=== PATIENT | female | born 1950 | race Caucasian/White ===

== ENCOUNTER 2017-07-04 10:52 | Inpatient (IN) | payer MEDICARE, OTHER ==
[2017-07-04] MEDS ORDERED: SODIUM CHLORIDE 0.9% 500 ML IV ONE (11:21)
[2017-07-04] MEDS ORDERED: SODIUM CHLORIDE 0.9% 1,000 ML IV ONE (11:21)
--- NOTE | 2017-07-04 11:39 | ED ---
Fall HPI <Krystian Patricio J - Last Filed: 07/04/17 14:15> - General Source: patient, EMS Mode of arrival: EMS Limitations: physical limitation <Pablo Alatorre - Last Filed: 07/04/17 14:59> - General Chief Complaint: Fall Stated Complaint: Fall Time Seen by Provider: 07/04/17 11:03 - History of Present Illness Initial Comments: This is a 66-year-old female presents emergency Department complaints of fall, weakness. Patient states that over school issues had extreme nausea vomiting diarrhea. She states that she took 3 Phenergan tablets yesterday states that she woke up last night to go to the bathroom states she fell. She states her tried to put her back in the bed in which she laid there were had with the bathroom again states that she got up and fell again she states she hit her head on a glass table she does not believe that she loss conscious. Patient window right shoulder right arm pain, right hip pain. She states she has no head or neck pain though she does admit to taking low-dose eliquis. Patient states that she has a history of UTIs in C. diff recently. Patient states she has no chest pain or shortness of breath. She states she does feel very rundown just normal usual self. (Pablo Alatorre) - Related Data Home Medications Medication Instructions Recorded Confirmed Spironolactone [Aldactone] 50 mg PO DAILY 09/24/14 07/04/17 Furosemide [Lasix] 20 mg PO DAILY 04/11/15 07/04/17 Apixaban [Eliquis] 2.5 mg PO HS 07/04/17 07/04/17 Levothyroxine Sodium [Synthroid] 50 mcg PO DAILY 07/04/17 07/04/17 Mirtazapine 7.5 mg PO HS 07/04/17 07/04/17 Allergies Allergy/AdvReac Type Severity Reaction Status Date / Time VANESSA Inhibitors Allergy Unknown Verified 07/04/17 11:27 baclofen Allergy Confusion Verified 07/04/17 11:27 cefepime HCl [From Maxipime] Allergy Rash/Hives Verified 07/04/17 11:27 cephalexin Allergy Rash/Hives Verified 07/04/17 11:27 ciprofloxacin Allergy Rash/Hives Verified 07/04/17 11:27 clindamycin Allergy Nausea & Verified 07/04/17 11:27 Vomiting erythromycin base Allergy Rash/Hives Verified 07/04/17 11:27 heparin Allergy Unknown Verified 07/04/17 11:27 lisinopril [From Zestril] Allergy Unknown Verified 07/04/17 11:27 lorazepam [From Ativan] Allergy Confusion Verified 07/04/17 11:27 metronidazole [From Flagyl] Allergy Nausea & Verified 07/04/17 11:27 Vomiting penicillin G Allergy Rash/Hives Verified 07/04/17 11:27 shellfish derived [Shellfish] Allergy Swelling Verified 07/04/17 11:27 Sulfa (Sulfonamide Allergy Swelling Verified 07/04/17 11:27 Antibiotics) steroids Allergy Unknown Uncoded 09/24/14 13:10 Review of Systems ROS Other: All systems not noted in ROS Statement are negative. <Krystian Patricio - Last Filed: 07/04/17 14:15> ROS Other: All systems not noted in ROS Statement are negative. <Pablo Alatorre - Last Filed: 07/04/17 14:59> ROS Statement: Those systems with pertinent positive or pertinent negative responses have been documented in the HPI. Past Medical History Past Medical History: Blood Disorder, Cancer, Deep Vein Thrombosis (DVT), Liver Disease, Respiratory Disorder Additional Past Medical History / Comment(s): 09-10-14 admitted to [facility] with c/o blood in urine and rectal bleeding, DX GI BLEED AND UTI. other hx: Breast Ca; Skin Ca squamous and melanoma; uterine ca, lung cancer LOWER LEFT LOBE 70%, c- diff- 08-13-14, on xarelto for dvt and portal vein thrombosis. 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 Additional Past Anesthesia/Blood Transfusion Reaction / Comment(s): PAST BLOOD TRANSFUSIONS- NO COMPLICATIONS Past Psychological History: Depression Smoking Status: Former smoker Past Alcohol Use History: None Reported, Occasional Past Drug Use History: None Reported - Past Family History Father Additional Family Medical History / Comment(s): FROM COMPLICATIONS OF SCHRAPNEL IN BODY Mother Additional Family Medical History / Comment(s): STOMACH PROBLEMS, EMPHYSEMA <Pablo Alatorre - Last Filed: 07/04/17 14:59> General Exam Limitations: no limitations General appearance: alert, in no apparent distress Head exam: Present: atraumatic, normocephalic, normal inspection Eye exam: Present: normal appearance, PERRL, EOMI. Absent: scleral icterus, conjunctival injection, periorbital swelling ENT exam: Present: normal exam, normal oropharynx, mucous membranes moist Neck exam: Present: normal inspection, full ROM. Absent: tenderness, meningismus, lymphadenopathy Respiratory exam: Present: normal lung sounds bilaterally. Absent: respiratory distress, wheezes, rales, rhonchi, stridor, chest wall tenderness Cardiovascular Exam: Present: regular rate, normal rhythm, normal heart sounds. Absent: systolic murmur, diastolic murmur, rubs, gallop, clicks GI/Abdominal exam: Present: soft, normal bowel sounds. Absent: distended, tenderness, guarding, rebound, rigid Extremities exam: Present: other (Tenderness with palpation of the right shoulder, right forearm there is moderate swelling neurovascular intact limited range of motion left upper extremity within normal limits, right hip tenderness with palpation limited range of motion, left hip nontender neurovascular intact) Back exam: Present: full ROM. Absent: tenderness, paraspinal tenderness, vertebral tenderness Neurological exam: Present: alert, oriented X3, CN II-XII intact, reflexes normal. Absent: motor sensory deficit Skin exam: Present: warm, dry, intact, normal color. Absent: rash <Pablo Alatorre - Last Filed: 07/04/17 14:59> Course <Krystian Patricio - Last Filed: 07/04/17 14:15> <Pablo Alatorre - Last Filed: 07/04/17 14:59> Vital Signs 07/04/17 07/04/17 10:53 13:22 Temperature 98.9 F Pulse Rate 74 89 Respiratory 18 16 Rate Blood Pressure 133/63 130/62 O2 Sat by Pulse 97 96 Oximetry - Reevaluation(s) Reevaluation #1: 07/04/17 12:19 Patient did not want pain meds on initial exam on upon arrival. (Pablo Alatorre) Procedures <Krystian Patricio - Last Filed: 07/04/17 14:15> - Orthopedic Splinting/Casting Injury #1 Side: right Upper Extremity Injury Location: short arm, wrist Upper Extremity Immobilizer: volar splint, synthetic pre-padded splint <Pablo Alatorre - Last Filed: 07/04/17 14:59> - Orthopedic Splinting/Casting Injury #1 Additional Comments: Neurovascular intact before and after procedure (Pablo Alatorre) Medical Decision Making - Lab Data Result diagrams: 07/04/17 13:13 07/04/17 13:13 <Krystian Patricio - Last Filed: 07/04/17 14:15> - Lab Data Result diagrams: 07/04/17 13:13 07/04/17 13:13 <Pablo Alatorre - Last Filed: 07/04/17 14:59> - Medical Decision Making The patient was seen and examined. All diagnostics were reviewed. The case will be discussed with orthopedic surgery in the near future and patient will be admitted for further treatment. Case was also discussed with the PA and I agree with the findings as documented. (Krystian Patricio) 66-year-old female presented for fall. Patient's found to have a right IT hip fracture, right wrist fracture. Case discussed with Carolyn at [facility] patient will be admitted for surgical intervention patient will have consultation with medicine for medical management, surgical clearance. Patient is given Levaquin as she is tolerating the past per patient for her urinary tract infection. Patient is being hydrated for her dehydration at this time. Patient's pain is under control. (Pablo Alatorre) - Lab Data Lab Results 07/04/17 07/04/17 07/04/17 Range/Units 11:23 13:13 13:13 WBC 10.3 (3.8-10.6) k/uL RBC 4.11 (3.80-5.40) m/uL Hgb 11.3 L (11.4-16.0) gm/dL Hct 36.0 (34.0-46.0) % MCV 87.4 (80.0-100.0) fL MCH 27.6 (25.0-35.0) pg MCHC 31.5 (31.0-37.0) g/dL RDW 15.7 H (11.5-15.5) % Plt Count 113 L (150-450) k/uL Neutrophils % 90 % Lymphocytes % 5 % Monocytes % 4 % Eosinophils % 1 % Basophils % 0 % Neutrophils # 9.3 H (1.3-7.7) k/uL Lymphocytes # 0.5 L (1.0-4.8) k/uL Monocytes # 0.4 (0-1.0) k/uL Eosinophils # 0.1 (0-0.7) k/uL Basophils # 0.0 (0-0.2) k/uL Hypochromasia Slight PT (9.0-12.0) sec INR (<1.2) APTT (22.0-30.0) sec Sodium 142 (137-145) mmol/L Potassium 4.2 (3.5-5.1) mmol/L Chloride 108 H (98-107) mmol/L Carbon Dioxide 22 (22-30) mmol/L Anion Gap 12 mmol/L BUN 25 H (7-17) mg/dL Creatinine 1.30 H (0.52-1.04) mg/dL Est GFR (CKD-EPI)AfAm 49 (>60 ml/min/1.73 sqM) Est GFR (CKD-EPI)NonAf 42 (>60 ml/min/1.73 sqM) Glucose 125 H (74-99) mg/dL Plasma Lactic Acid Alex (0.7-2.0) mmol/L Calcium 8.9 (8.4-10.2) mg/dL Magnesium 1.5 L (1.6-2.3) mg/dL Total Bilirubin 1.1 (0.2-1.3) mg/dL AST 62 H (14-36) U/L ALT 57 H (9-52) U/L Alkaline Phosphatase 173 H (38-126) U/L Total Creatine Kinase (30-135) U/L CK-MB (CK-2) (0.0-2.4) ng/mL CK-MB (CK-2) Rel Index Troponin I (0.000-0.034) ng/mL Total Protein 6.3 (6.3-8.2) g/dL Albumin 3.3 L (3.5-5.0) g/dL Amylase 50 (30-110) U/L Lipase 40 (23-300) U/L Urine Color Yellow Urine Appearance Cloudy H (Clear) Urine pH 5.0 (5.0-8.0) Ur Specific [place] 1.014 (1.001-1.035) Urine Protein Trace H (Negative) Urine Glucose (UA) Negative (Negative) Urine Ketones Negative (Negative) Urine Blood Small H (Negative) Urine Nitrite Positive H (Negative) Urine Bilirubin Negative (Negative) Urine Urobilinogen <2.0 (<2.0) mg/dL Ur Leukocyte Esterase Large H (Negative) Urine RBC 14 H (0-5) /hpf Urine WBC >182 H (0-5) /hpf Urine WBC Clumps Many H (None) /hpf Urine Bacteria Many H (None) /hpf Hyaline Casts 8 H (0-2) /lpf Urine Mucus Occasional H (None) /hpf 07/04/17 07/04/17 07/04/17 Range/Units 13:13 13:13 13:13 WBC (3.8-10.6) k/uL RBC (3.80-5.40) m/uL Hgb (11.4-16.0) gm/dL Hct (34.0-46.0) % MCV (80.0-100.0) fL MCH (25.0-35.0) pg MCHC (31.0-37.0) g/dL RDW (11.5-15.5) % Plt Count (150-450) k/uL Neutrophils % % Lymphocytes % % Monocytes % % Eosinophils % % Basophils % % Neutrophils # (1.3-7.7) k/uL Lymphocytes # (1.0-4.8) k/uL Monocytes # (0-1.0) k/uL Eosinophils # (0-0.7) k/uL Basophils # (0-0.2) k/uL Hypochromasia PT 11.4 (9.0-12.0) sec INR 1.2 H (<1.2) APTT 24.1 (22.0-30.0) sec Sodium (137-145) mmol/L Potassium (3.5-5.1) mmol/L Chloride (98-107) mmol/L Carbon Dioxide (22-30) mmol/L Anion Gap mmol/L BUN (7-17) mg/dL Creatinine (0.52-1.04) mg/dL Est GFR (CKD-EPI)AfAm (>60 ml/min/1.73 sqM) Est GFR (CKD-EPI)NonAf (>60 ml/min/1.73 sqM) Glucose (74-99) mg/dL Plasma Lactic Acid Alex 1.3 (0.7-2.0) mmol/L Calcium (8.4-10.2) mg/dL Magnesium (1.6-2.3) mg/dL Total Bilirubin (0.2-1.3) mg/dL AST (14-36) U/L ALT (9-52) U/L Alkaline Phosphatase (38-126) U/L Total Creatine Kinase 100 (30-135) U/L CK-MB (CK-2) 1.3 (0.0-2.4) ng/mL CK-MB (CK-2) Rel Index 1.3 Troponin I 0.023 (0.000-0.034) ng/mL Total Protein (6.3-8.2) g/dL Albumin (3.5-5.0) g/dL Amylase (30-110) U/L Lipase (23-300) U/L Urine Color Urine Appearance (Clear) Urine pH (5.0-8.0) Ur Specific [place] (1.001-1.035) Urine Protein (Negative) Urine Glucose (UA) (Negative) Urine Ketones (Negative) Urine Blood (Negative) Urine Nitrite (Negative) Urine Bilirubin (Negative) Urine Urobilinogen (<2.0) mg/dL Ur Leukocyte Esterase (Negative) Urine RBC (0-5) /hpf Urine WBC (0-5) /hpf Urine WBC Clumps (None) /hpf Urine Bacteria (None) /hpf Hyaline Casts (0-2) /lpf Urine Mucus (None) /hpf - EKG Data EKG Comments: EKG performed at 12:24 normal sinus rhythm with a rate of 74 MS 136 QRS 88 QT/ QTC 422/468 (Pablo Alatorre) Disposition <Krystian Patricio - Last Filed: 04/26/18 14:15> <Pablo Alatorre - Last Filed: 07/04/17 14:59> Clinical Impression: Fall, Urinary tract infection, Dehydration, Intertrochanteric fracture of right hip, Right wrist fracture Disposition: ADMITTED IP TO THIS HOSP Condition: Fair
[2017-07-04 11:45] LABS: Appearance,Urine Cloudy (Clear); Bacteria,Urine Many /hpf; Bilirubin,Urine Negative (Negative); Blood,Urine Small (Negative); Color,Urine Yellow; Glucose,Urine (UA) Negative (Negative); Hyaline Casts,Urine 8 /lpf (0-2); Ketones,Urine Negative (Negative); Leukocyte Esterase,Urine Large (Negative); Mucus,Urine Occasional /hpf; Nitrite,Urine Positive (Negative); Protein,Urine Trace (Negative); RBC,Urine 14 /hpf (0-5); Specific Gravity,Urine 1.014 (1.001-1.035); Urobilinogen,Urine <2.0 mg/dL (<2.0); WBC,Urine >182 /hpf (0-5)
[2017-07-04] MEDS ORDERED: MORPHINE SULFATE 4 MG/0.8 ML SYRINGE (INJ) IVP STA (12:02)
[2017-07-04] MEDS ORDERED: ONDANSETRON 4 MG/2 ML VIAL IVP STA (12:02)
--- NOTE | 2017-07-04 12:06 | CT ---
EXAMINATION TYPE: CT brain lawrence cardoza DATE OF EXAM: 07/04/2017 COMPARISON: NONE HISTORY: Fall, smacked head on coffee table CT DLP: 1655 mGycm, Automated exposure control for dose reduction was used. CONTRAST: Patient injected with 0 mL of Isovue 300. CT of the brain is performed utilizing 3 mm thick sections through the posterior fossa and 3 mm thick sections through the remaining calvarium. Study is performed within 24 hours of arrival to the hospital. No abnormal hyperdensity is present to suggest an acute intracranial hemorrhage. No mass lesion is evident. No acute infarcts are evident. There is mild periventricular white matter hypodensity, likely on the basis of chronic white matter ischemic changes. Ventricles and sulci are somewhat prominent for the patient age. Paranasal sinuses and mastoid air cells within the [id number] are clear. No acute fractures are evident. IMPRESSIONS: 1. Atrophy with mild periventricular white matter ischemic changes. 2. No acute intracranial process CT cervical spine. COMPARISON: None CT of the cervical spine is performed in the axial plane at 2 mm thick sections. Reconstructed image s in the coronal, and sagittal plane are reviewed on the computer. No acute fractures are evident. Vertebral body alignment is normal. There is loss of disc height throughout the cervical spine. Endplate spurring is present through the cervical spine. This is somewhat larger at C4-5 C5-6 without AP spinal canal stenosis. Uncovertebral joint hypertrophy is contributing to foraminal narrowing C6- 7 bilaterally C5-6 bilaterally due to lesser degree C4-5 due to moderate degree C3-4 to moderate degr ee. Vertebral body heights are preserved. IMPRESSIONS: 1. Endplate spurring and degenerative disc changes throughout the cervical spine. 2. Foraminal stenosis within the mid to lower cervical spine appears moderate to severe discussed abo ve. 3. No acute changes
--- NOTE | 2017-07-04 12:30 | XR ---
EXAMINATION TYPE: XR shoulder complete RT, XR forearm RT DATE OF EXAM: 07/04/2017 CLINICAL HISTORY: Right shoulder pain after a fall TECHNIQUE: Three views of the right shoulder are obtained. COMPARISON: None. FINDINGS: There is no acute fracture/dislocation evident in the right shoulder. The acromioclavicul ar and glenohumeral joint spaces appear within normal limits. The visualized ribs are intact and unr emarkable. Right axillary surgical clips are noted. There is a apex volar angulated, minimally dorsally displaced (1 to 2 mm), noncomminuted impaction fr acture of the distal radius and transversely oriented minimally displaced (1 mm distraction) fracture of the ulnar styloid process. There is overlying soft tissue swelling of the distal forearm. IMPRESSION: 1. Noncomminuted, minimally dorsally displaced (1 to 2 mm), volar angulated distal radial impaction f racture and minimally displaced transversely oriented ulnar styloid process fracture. 2. There is no acute fracture or dislocation in the right shoulder.
--- NOTE | 2017-07-04 12:31 | XR ---
EXAMINATION TYPE: XR chest 1V DATE OF EXAM: 07/04/2017 COMPARISON: NONE INDICATION: Pain following fall TECHNIQUE: Single frontal view of the chest is obtained. Patient is rotated to the left. FINDINGS: The heart size is normal. The pulmonary vasculature is normal. Surgical clips are in the left hilar region. Some plate atelectasis may be along the minor fissure on the right. This could be some minimal fluid. There is blunting left costophrenic angle. Small left p leural effusion may be present. No pneumothorax is evident. No displaced rib fractures are identified. IMPRESSION: 1. Minimal left pleural effusion. 2. Atelectasis right midlung
--- NOTE | 2017-07-04 12:32 | XR ---
EXAMINATION TYPE: XR Hip RT and AP Pelvis DATE OF EXAM: 07/04/2017 COMPARISON: NONE HISTORY: Pain after a fall TECHNIQUE: A single AP view of the pelvis is obtained. Two views of the right hip are obtained. FINDINGS: There is an intertrochanteric nondisplaced, noncomminuted impaction fracture of the right proximal femur extending into the lesser trochanter. Remainder the pelvis structures appear intact wi th healed chronic fracture deformity of the left pubic symphysis and superior pubic ramus. Postsurgic al changes the pelvis are noted with mild femoral acetabular arthropathy and moderate degenerative ch anges of the lumbosacral spine are seen. IMPRESSION: Nondisplaced, noncomminuted impacted intertrochanteric fracture of the right proximal femur extending into the lesser trochanter.
[2017-07-04 13:31] LABS: Basophils % (A) 0 %; Eosinophils # (A) 0.1 k/uL (0-0.7); Eosinophils % (A) 1 %; HGB 11.3 gm/dL (11.4-16.0); Hypochromasia Slight; Lymphocytes # (A) 0.5 k/uL (1.0-4.8); Lymphocytes % (A) 5 %; MCH 27.6 pg (25.0-35.0); MCHC 31.5 g/dL (31.0-37.0); MCV 87.4 fL (80.0-100.0); Mean Platelet Volume 8.2; Monocytes # (A) 0.4 k/uL (0-1.0); Monocytes % (A) 4 %; Neutrophils # (A) 9.3 k/uL (1.3-7.7); Neutrophils % (A) 90 %; Platelet Count 113 k/uL (150-450); RBC 4.11 m/uL (3.80-5.40); RDW 15.7 % (11.5-15.5); WBC 10.3 k/uL (3.8-10.6)
[2017-07-04 13:39] LABS: INR 1.2 (<1.2); Partial Thromboplastin Time 24.1 sec (22.0-30.0); Prothrombin Time 11.4 sec (9.0-12.0)
[2017-07-04 13:41] LABS: Albumin 3.3 g/dL (3.5-5.0); Calcium 8.9 mg/dL (8.4-10.2); Magnesium 1.5 mg/dL (1.6-2.3); Potassium 4.2 mmol/L (3.5-5.1); Total Bilirubin 1.1 mg/dL (0.2-1.3); Total Protein 6.3 g/dL (6.3-8.2)
[2017-07-04 14:03] LABS: Creatine Kinase MB 1.3 ng/mL (0.0-2.4); Troponin I 0.023 ng/mL (0.000-0.034)
[2017-07-04] MEDS ORDERED: NALOXONE 0.4 MG/ML 1 ML VIAL IV PRN (14:19)
[2017-07-04] MEDS ORDERED: ONDANSETRON 4 MG/2 ML VIAL IVP PRN (14:19)
[2017-07-04] MEDS ORDERED: HYDROcodone/APAP 5-325MG 1 EACH TAB PO PRN (14:19)
[2017-07-04] MEDS ORDERED: LEVOFLOXACIN 750MG-D5W PMX 750 MG in DEXTROSE/WATER 1 150ML.BAG IVPB STA ×2 (14:21→20:49)
[2017-07-04] MEDS ORDERED: SODIUM CHLORIDE 0.9% 1,000 ML IV SCH (14:30)
--- NOTE | 2017-07-04 15:02 | XR ---
EXAMINATION TYPE: XR Femur RT 1 View DATE OF EXAM: 07/04/2017 CLINICAL HISTORY: Fall with right femoral pain. TECHNIQUE: Two views of the right femur are obtained. COMPARISON: None FINDINGS: There is redemonstration of a known intertrochanteric fracture with involvement of the less er trochanter and demonstration of impaction. The remainder the proximal right femur is intact. Surgi rogerio clips are seen within the pelvis as well as partial visualization of an old fracture deformity of the left pubic ramus. The distal femur appears unremarkable other than degenerative changes of the k nee demonstrated as medial compartment joint space narrowing. IMPRESSION: Redemonstration of an intertrochanteric impacted right proximal femoral fracture. No distal femoral f racture is identified. Degenerative changes of the medial compartment of the right knee are noted.
--- NOTE | 2017-07-04 16:48 | P.HPOR ---
History of Present Illness H&P Date: 07/04/17 Chief Complaint: Right hip intertrochantric fracture and right distal radius fracture The patient is a 66 year old female with an extensive history of malignancy and blood clotting disorder that presented to the emergency department today with right hip and arm pain. She states she fell at home last night and an ambulance brought her to the hospital this morning due to inability to ambulate. She lives with her in their own home. The patient does not use an ambulatory aid. She states she hasn't been feeling well and was very dizzy last night. She did hit her head but did not lose consciousness. A head and cervical CT was performed on arrival to the ER and was negative for bleed or fracture. Hip x-rays revealed a non-displaced intertrochantric fracture and forearm x-rays revealed a minimally displaced distal radius fracture with ulnar styloid fracture. The patient was admitted to our service for surgical intervention. She is on low-dose Eliquis for a history of a portal vein thrombosis. Dr. Miles Collado has been consulted for surgical clearance. She is being treated for a UTI with Levaquin IV. She has a history of C. diff. Review of Systems Constitutional: Denies chills, Denies fever, Denies lethargy Cardiovascular: Reports lightheadedness, Denies chest pain, Denies shortness of breath Respiratory: Denies cough Gastrointestinal: Denies diarrhea, Denies nausea, Denies vomiting Musculoskeletal: right: hip pain, hip stiffness, hip swelling, wrist pain, wrist swelling Neurological: Reports weakness Hematologic/Lymphatic: Reports as per HPI Past Medical History Past Medical History: Blood Disorder, Cancer, Deep Vein Thrombosis (DVT), GI Bleed, Liver Disease, Respiratory Disorder Additional Past Medical History / Comment(s): 09[facility]/o blood in urine and rectal bleeding, DX GI BLEED AND UTI. other hx: Breast Ca x2 ; Skin Ca squamous and melanoma; uterine ca, lung cancer LOWER LEFT LOBE 70%, c- diff- 08-13-14 snd feb 2017, on xarelto for dvt and portal vein thrombosis. 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 History of Any Multi-Drug Resistant Organisms: C-DIFF Date of last positivie culture/infection: 08/13/14 and MDRO Source:: stool Past Surgical History: Adenoidectomy, Appendectomy, Breast Surgery, Cholecystectomy, Hysterectomy, Tonsillectomy Additional Past Surgical History / Comment(s): Mastectomy bilateral; Left lower lobectomy 70%; exploratory laparotomy, LASER SX AT [facility] FOR MELANOMA- CURRENTLY HAS 100 SPOTS THAT THEY ARE WATCHING REMMOVED 4 SO FAR.lasik eye sx, past "abcess on back(ecoli) pt stated they had to open a channel,removed 2 ribs and some muscle and it was open to drain to 18 months". Additional Past Anesthesia/Blood Transfusion Reaction / Comment(s): PAST BLOOD TRANSFUSIONS- NO COMPLICATIONS Smoking Status: Former smoker - Past Family History Father Additional Family Medical History / Comment(s): FROM COMPLICATIONS OF SCHRAPNEL IN BODY Mother Additional Family Medical History / Comment(s): STOMACH PROBLEMS, EMPHYSEMA Medications and Allergies Home Medications Medication Instructions Recorded Confirmed Type Spironolactone [Aldactone] 50 mg PO DAILY 09/24/14 07/04/17 History Furosemide [Lasix] 20 mg PO DAILY 04/11/15 07/04/17 History Apixaban [Eliquis] 2.5 mg PO HS 07/04/17 07/04/17 History Levothyroxine Sodium [Synthroid] 50 mcg PO DAILY 07/04/17 07/04/17 History Mirtazapine 7.5 mg PO HS 07/04/17 07/04/17 History Allergies Allergy/AdvReac Type Severity Reaction Status Date / Time VANESSA Inhibitors Allergy Unknown Verified 07/04/17 11:27 baclofen Allergy Confusion Verified 07/04/17 11:27 cefepime HCl [From Maxipime] Allergy Rash/Hives Verified 07/04/17 11:27 cephalexin Allergy Rash/Hives Verified 07/04/17 11:27 ciprofloxacin Allergy Rash/Hives Verified 07/04/17 11:27 clindamycin Allergy Nausea & Verified 07/04/17 11:27 Vomiting erythromycin base Allergy Rash/Hives Verified 07/04/17 11:27 heparin Allergy Unknown Verified 07/04/17 11:27 lisinopril [From Zestril] Allergy Unknown Verified 07/04/17 11:27 lorazepam [From Ativan] Allergy Confusion Verified 07/04/17 11:27 metronidazole [From Flagyl] Allergy Nausea & Verified 07/04/17 11:27 Vomiting penicillin G Allergy Rash/Hives Verified 07/04/17 11:27 shellfish derived [Shellfish] Allergy Swelling Verified 07/04/17 11:27 Sulfa (Sulfonamide Allergy Swelling Verified 07/04/17 11:27 Antibiotics) steroids Allergy Unknown Uncoded 09/24/14 13:10 Physical Examination The patient is a 66 y/o female who is in no acute distress. She is alert and oriented x3. Her head is normocephalic/atraumatic. Exam of the cervical spine reveals no pain to palpation, no step-offs noted. Exam of the right upper extremity reveals a volar splint. Here is swelling to the fingers. She is able to wiggle her fingers. No neurological deficits or numbness noted. No elbow or shoulder pain to palpation or upon passive range of motion. Exam of the right lower extremity reveals minimal shortening of the leg. There is pain to the lateral hip on palpation. Range of motion of the hip was not performed. Right knee, ankle, and foot are non-tender. Exam of the leg upper and lower extremities are unremarkable. Bilateral calves are soft and non-tender. Neurological and circulatory status is intact. Results - Labs Labs: Abnormal Lab Results - Last 24 Hours (Table) 07/04/17 07/04/17 07/04/17 Range/Units 11:23 13:13 13:13 Hgb 11.3 L (11.4-16.0) gm/dL RDW 15.7 H (11.5-15.5) % Plt Count 113 L (150-450) k/uL Neutrophils # 9.3 H (1.3-7.7) k/uL Lymphocytes # 0.5 L (1.0-4.8) k/uL INR (<1.2) Chloride 108 H (98-107) mmol/L BUN 25 H (7-17) mg/dL Creatinine 1.30 H (0.52-1.04) mg/dL Glucose 125 H (74-99) mg/dL Magnesium 1.5 L (1.6-2.3) mg/dL AST 62 H (14-36) U/L ALT 57 H (9-52) U/L Alkaline Phosphatase 173 H (38-126) U/L Albumin 3.3 L (3.5-5.0) g/dL Urine Appearance Cloudy H (Clear) Urine Protein Trace H (Negative) Urine Blood Small H (Negative) Urine Nitrite Positive H (Negative) Ur Leukocyte Esterase Large H (Negative) Urine RBC 14 H (0-5) /hpf Urine WBC >182 H (0-5) /hpf Urine WBC Clumps Many H (None) /hpf Urine Bacteria Many H (None) /hpf Hyaline Casts 8 H (0-2) /lpf Urine Mucus Occasional H (None) /hpf 07/04/17 Range/Units 13:13 Hgb (11.4-16.0) gm/dL RDW (11.5-15.5) % Plt Count (150-450) k/uL Neutrophils # (1.3-7.7) k/uL Lymphocytes # (1.0-4.8) k/uL INR 1.2 H (<1.2) Chloride (98-107) mmol/L BUN (7-17) mg/dL Creatinine (0.52-1.04) mg/dL Glucose (74-99) mg/dL Magnesium (1.6-2.3) mg/dL AST (14-36) U/L ALT (9-52) U/L Alkaline Phosphatase (38-126) U/L Albumin (3.5-5.0) g/dL Urine Appearance (Clear) Urine Protein (Negative) Urine Blood (Negative) Urine Nitrite (Negative) Ur Leukocyte Esterase (Negative) Urine RBC (0-5) /hpf Urine WBC (0-5) /hpf Urine WBC Clumps (None) /hpf Urine Bacteria (None) /hpf Hyaline Casts (0-2) /lpf Urine Mucus (None) /hpf H & H 07/04/17 Range/Units 13:13 Hgb 11.3 L (11.4-16.0) gm/dL Hct 36.0 (34.0-46.0) % Coagulation 07/04/17 Range/Units 13:13 INR 1.2 H (<1.2) Result Diagrams: 07/04/17 13:13 07/04/17 13:13 - Diagnostic results Wrist/Hand x-ray: image reviewed (Minimally displaced distal radius fracture with ulnar styloid fracture of the right wrist. Fracture is is in satisfactory alignment. ) Hip x-ray: image reviewed (non-displaced intertrochantric fracture of the right hip. There is an old superior pubic rami fracture on the left. ) Assessment and Plan (1) Fall Current Visit: Yes Status: Acute Code(s): W19.XXXA - UNSPECIFIED FALL, INITIAL ENCOUNTER SNOMED Code(s): 8643667 (2) Intertrochanteric fracture of right hip Current Visit: Yes Status: Acute Code(s): S72.141A - DISPLACED INTERTROCHANTERIC FRACTURE OF RIGHT FEMUR, INIT SNOMED Code(s): 835450836 (3) Distal radius fracture Current Visit: Yes Status: Acute Code(s): S52.509A - UNSP FRACTURE OF THE LOWER END OF UNSP RADIUS, INIT SNOMED Code(s): 525308012 (4) Urinary tract infection Current Visit: Yes Status: Acute Code(s): N39.0 - URINARY TRACT INFECTION, SITE NOT SPECIFIED SNOMED Code(s): 69316796 Plan: The clinical and x-ray findings were discussed with the patient. The case was discussed with Dr. Arvizu. Continue bedrest. We are recommending an ORIF with intertrochantric fixation nail of the right hip tomorrow afternoon. She will be NPO tonight. Continue Levaquin for UTI treatment. We will await surgical clearance by Dr. Miles Collado. Hold Eliquis until post-operatively. Surgical risks were discussed with the patient that include infection, fracture displacement, DVT, stroke, heart attack, and/or . She states she understands the risks and would like to proceed with surgery tomorrow. She will likely need subacute rehab after discharge from the hospital
[2017-07-04] MEDS: MORPHINE SULFATE 4 MG/0.8 ML SYRINGE (INJ) IV PRN ×2 (18:22→22:12)
[2017-07-04] MEDS ORDERED: SODIUM CHLORIDE 0.9% 1,000 ML IV STA (20:43)
[2017-07-04] MEDS: LACTATED RINGERS 1,000 ML IV SCH (20:53)
[2017-07-04] MEDS: MIRTAZAPINE 15 MG TAB PO SCH (22:12)
[2017-07-04] MEDS: SODIUM CHLORIDE 0.9% 1,000 ML IV SCH (22:15)
--- NOTE | 2017-07-04 22:39 | CONS ---
CONSULTATION CHIEF COMPLAINT: 66-year-old white female status post fall at home with a right radial ulnar fracture and right humeral fracture for medical management consult. She is on Eliquis at home for blood clots, DVT, and subclavian artery blood clots. This will be discontinued. She will be placed on heparin protocol at this time prior to surgery and go back on Eliquis postop. She will have to wait at least 48 hours before surgery can be done, it has been 24 hours so far since Eliquis has been discontinued. She took 3 Phenergan at home at 1 time that may have contributed to her fall. She had some gastroenteritis which is improving at this point. She has a history of C difficile, but diarrhea getting better as mentioned above at this time. REVIEW OF SYSTEMS: Fourteen point review of systems negative except for mentioned in HPI. MEDS: See list. FAMILY HISTORY: Father shrapnel in body, mother stomach problems and emphysema. PAST MEDICAL HISTORY: Portal vein thrombosis, non alcoholic cirrhosis, from internal radiation. 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 SURGERIES: Appendectomy, breast surgery, cholecystectomy, hysterectomy, tonsillectomy. ALLERGIES: VANESSA INHIBITORS, BACITRACIN, CLINDAMYCIN, CIPROFLOXACIN, CEPHALEXIN, CEFEPIME, ERYTHROMYCIN, HEPARIN, LISINOPRIL, LORAZEPAM, FLAGYL, PENICILLIN, SULFA, STEROIDS. PHYSICAL EXAM: She appears in no acute distress. NEUROLOGIC: Alert orient x3. Psych fair mood and affect, given appropriate answers. CARDIOVASCULAR: S1, S2. LUNGS: Clear. GI soft. Range of motion: She has a right arm with a brace. LABS: Reviewed. Magnesium is low 1. Liver enzymes are high at 62 57. UA shows nitrite positive. 14 white blood cells, red cells, greater than 182, white cells, BUN 25, creatinine 1.3. ASSESSMENT: 1. History of portal vein thrombosis on Eliquis which will be discontinued. Heparin subcu will be done. 2. Urinary tract infection. IV Levaquin will be given. 3. Fall secondary to chronic use. 4. Status post gastroenteritis. 5. History of lung cancer. 6. Intertrochanteric fracture, right hip. 7. Distal radial fracture. The surgery will be done after Eliquis has been discontinued for probable 72 hours, at least 48 hours, it has been 24 hours so far today. MMODL / IJN: [id number] /
[2017-07-05] MEDS ORDERED: HEPARIN SODIUM,PORCINE 5,000 UNIT/ML 1 ML VIAL SQ SCH
[2017-07-05] MEDS: HEPARIN SODIUM,PORCINE 5,000 UNIT/ML 1 ML VIAL SQ SCH ×3 (00:11→18:15)
[2017-07-05] MEDS: MORPHINE SULFATE 4 MG/0.8 ML SYRINGE (INJ) IV PRN ×4 (02:31→21:55)
[2017-07-05] MEDS: LEVOTHYROXINE 50 MCG TAB PO SCH (05:43)
[2017-07-05] MEDS: SPIRONOLACTONE 25 MG TAB PO SCH (08:00)
[2017-07-05] MEDS: FUROSEMIDE 20 MG TAB PO SCH (08:00)
--- NOTE | 2017-07-05 11:16 | P.PN ---
Subjective Progress Note Date: 07/05/17 Principal diagnosis: Right IT fracture, right distal radius and ulna fractures The patient is a 66 year old female seen at bedside this morning. She was admitted through the ED yesterday 07/04/17 after suffering a fall at home. X- Rays showed fractures including a non-displaced right IT hip fracture and non- displaced right distal radius and ulna fractures. A head and cervical CT was performed on arrival to the ER and was negative for bleed or fracture. She has an extensive history of malignancy and blood clotting disorder. The patient was admitted to our service for surgical intervention. Dr. Miles Collado has been consulted for surgical clearance. She is being treated for a UTI with Levaquin IV. She has a history of C. diff. She is on low -dose Eliquis for a history of a portal vein thrombosis which is being held until post operatively. Objective - Vital Signs Vital signs: Vital Signs Temp 98.9 F 07/05/17 07:53 Pulse 85 07/05/17 07:53 Resp 14 07/05/17 07:53 BP 99/60 07/05/17 07:53 Pulse Ox 94 L 07/05/17 07:53 Intake & Output 07/04/17 07/05/17 07/05/17 18:59 06:59 18:59 Intake Total 1540 Output Total 825 Balance 715 Weight 74.843 kg Intake: Intake, IV Titration 950 Amount Levofloxacin 750Mg-D5w 150 Pmx 750 mg In Dextrose/ Water 1 150ml.bag @ 100 mls/hr IVPB ONCE STA Rx#: [id number] Sodium Chloride 0.9% 1, 800 000 ml @ 100 mls/hr IV . Q10H [facility] Rx#:[id number] Oral 590 Output: Urine 825 Uretheral (King) 825 Other: Voiding Method Indwelling Catheter Indwelling Catheter Indwelling Catheter - Exam The patient is a 66 y/o female who is in no acute distress. She is alert and oriented x3. Her head is normocephalic/atraumatic. Exam of the cervical spine reveals no pain to palpation, no step-offs noted. Exam of the right upper extremity reveals a volar splint. There is swelling to the fingers as expected. She is able to wiggle her fingers. No neurological deficits or numbness noted. No elbow or shoulder pain to palpation or upon passive range of motion. Exam of the right lower extremity reveals minimal shortening of the leg. There is pain to the lateral hip on palpation. Range of motion of the hip was not performed. Right knee, ankle, and foot are non-tender. Bilateral calves are soft and non-tender. Neurological and circulatory status is intact. - Constitutional General appearance: Present: no acute distress - Psychiatric Psychiatric: Present: A&O x's 3, appropriate affect, intact judgment & insight - Labs CBC & Chem 7: 07/04/17 13:13 07/04/17 13:13 Labs: Abnormal Lab Results - Last 24 Hours (Table) 07/04/17 07/04/17 07/04/17 Range/Units 11:23 13:13 13:13 Hgb 11.3 L (11.4-16.0) gm/dL RDW 15.7 H (11.5-15.5) % Plt Count 113 L (150-450) k/uL Neutrophils # 9.3 H (1.3-7.7) k/uL Lymphocytes # 0.5 L (1.0-4.8) k/uL INR (<1.2) Chloride 108 H (98-107) mmol/L BUN 25 H (7-17) mg/dL Creatinine 1.30 H (0.52-1.04) mg/dL Glucose 125 H (74-99) mg/dL Magnesium 1.5 L (1.6-2.3) mg/dL AST 62 H (14-36) U/L ALT 57 H (9-52) U/L Alkaline Phosphatase 173 H (38-126) U/L Albumin 3.3 L (3.5-5.0) g/dL Urine Appearance Cloudy H (Clear) Urine Protein Trace H (Negative) Urine Blood Small H (Negative) Urine Nitrite Positive H (Negative) Ur Leukocyte Esterase Large H (Negative) Urine RBC 14 H (0-5) /hpf Urine WBC >182 H (0-5) /hpf Urine WBC Clumps Many H (None) /hpf Urine Bacteria Many H (None) /hpf Hyaline Casts 8 H (0-2) /lpf Urine Mucus Occasional H (None) /hpf 07/04/17 Range/Units 13:13 Hgb (11.4-16.0) gm/dL RDW (11.5-15.5) % Plt Count (150-450) k/uL Neutrophils # (1.3-7.7) k/uL Lymphocytes # (1.0-4.8) k/uL INR 1.2 H (<1.2) Chloride (98-107) mmol/L BUN (7-17) mg/dL Creatinine (0.52-1.04) mg/dL Glucose (74-99) mg/dL Magnesium (1.6-2.3) mg/dL AST (14-36) U/L ALT (9-52) U/L Alkaline Phosphatase (38-126) U/L Albumin (3.5-5.0) g/dL Urine Appearance (Clear) Urine Protein (Negative) Urine Blood (Negative) Urine Nitrite (Negative) Ur Leukocyte Esterase (Negative) Urine RBC (0-5) /hpf Urine WBC (0-5) /hpf Urine WBC Clumps (None) /hpf Urine Bacteria (None) /hpf Hyaline Casts (0-2) /lpf Urine Mucus (None) /hpf Microbiology - Last 24 Hours (Table) 07/04/17 20:47 Urine Culture - Preliminary Urine,Catheterized Assessment and Plan (1) Distal radius fracture Narrative/Plan: Plan is to proceed with surgical intervention tomorrow 07/06/17 including IT nail for her right hip fracture. She will remain in splint for her distal radius fracture which does not require surgical intervention. Continue pain management, DVT prophylaxis and medical management. Eloquis has been held. She is NPO after midnight. Dr. Spicer has been consulted for clearance. Current Visit: Yes Status: Acute Priority: Medium Code(s): S52.509A - UNSP FRACTURE OF THE LOWER END OF UNSP RADIUS, INIT SNOMED Code(s): 945627757 (2) Intertrochanteric fracture of right hip Current Visit: Yes Status: Acute Priority: Medium Code(s): S72.141A - DISPLACED INTERTROCHANTERIC FRACTURE OF RIGHT FEMUR, INIT SNOMED Code(s): 317970792 Time with Patient: Less than 30
--- NOTE | 2017-07-05 18:17 | PN ---
PROGRESS NOTE SUBJECTIVE: This is a 66-year-old white female with fall on her right hip and right arm with fracture of the right radius and the right humerus, scheduled for surgery tomorrow morning, when she will be almost 72 hours off Eliquis. She is having no chest pain or shortness of breath. She is requesting a probiotic, which I told the nurse about. CARDIOVASCULAR: S1, S2. LUNGS: Clear. GI: Soft. HEMATOLOGY: Negative Homans. PSYCH: Fair mood and affect. ASSESSMENT: 1. Right humeral fracture. 2. History of lung cancer. 3. Multiple medical problems. Continue on home medications. Surgical intervention in the morning after being off. Will continue on heparin subcutaneously right up to surgery and then go back on Eliquis postoperatively. MMODL / IJN: [id number] /
[2017-07-05] MEDS: SODIUM CHLORIDE 0.9% 1,000 ML IV SCH ×2 (21:40→21:42)
[2017-07-05] MEDS: LACTATED RINGERS 1,000 ML IV SCH (21:40)
[2017-07-05] MEDS: MIRTAZAPINE 15 MG TAB PO SCH (21:40)
[2017-07-06] MEDS: HEPARIN SODIUM,PORCINE 5,000 UNIT/ML 1 ML VIAL SQ SCH ×4 (00:30→23:11)
[2017-07-06] MEDS: LEVOTHYROXINE 50 MCG TAB PO SCH (02:03)
[2017-07-06] MEDS: SODIUM CHLORIDE 0.9% 1,000 ML IV SCH ×2 (02:30→21:46)
[2017-07-06] MEDS: MORPHINE SULFATE 4 MG/0.8 ML SYRINGE (INJ) IV PRN (03:15)
[2017-07-06] MEDS ORDERED: PROPOFOL 10 MG/ML 20 ML VIAL IV ONE (09:05)
[2017-07-06] MEDS ORDERED: GLYCOPYRROLATE 0.2 MG/ML 2 ML VIAL ONE (09:05)
[2017-07-06] MEDS ORDERED: ONDANSETRON 4 MG/2 ML VIAL ONE (09:05)
[2017-07-06] MEDS ORDERED: MIDAZOLAM 2 MG/2 ML VIAL ONE (09:05)
[2017-07-06] MEDS ORDERED: fentaNYL (PF) 50 MCG/ML 2 ML AMP ONE (09:05)
[2017-07-06] MEDS ORDERED: LIDOCAINE 1% INJ 10MG/ML (20 ML MDV) ONE (09:05)
[2017-07-06] MEDS ORDERED: LACTATED RINGERS 1,000 ML IV ONE ×2 (09:05→09:15)
[2017-07-06] MEDS ORDERED: PHENYLEPHRINE-0.9% NACL SYG 1 MG/10 ML SYRINGE ONE (09:05)
[2017-07-06] MEDS ORDERED: SUCCINYLCHOLINE CHLORIDE 100 MG/5 ML SYR IV ONE (09:05)
[2017-07-06] MEDS ORDERED: ROCURONIUM BROMIDE 10 MG/ML 10 ML VIAL IV ONE (09:05)
[2017-07-06] MEDS ORDERED: NEOSTIGMINE 1 MG/ML 10 ML VIAL ONE (09:05)
[2017-07-06] MEDS ORDERED: ePHEDrine SULFATE/0.9% NACL/PF 50 MG/5 ML SYRINGE IV ONE (09:05)
[2017-07-06] MEDS ORDERED: VANCOMYCIN 1,000 MG in SODIUM CHLORIDE 0.9% 250 ML IVPB STA (09:41)
[2017-07-06] MEDS ORDERED: traMADol 50 MG TAB PO PRN (10:46)
[2017-07-06] MEDS ORDERED: HYDROcodone/APAP 5-325MG 1 EACH TAB PO PRN (10:46)
[2017-07-06] MEDS ORDERED: ACETAMINOPHEN TAB 325 MG TAB PO PRN (10:46)
[2017-07-06] MEDS ORDERED: MORPHINE SULFATE 4 MG/0.8 ML SYRINGE (INJ) IVP PRN ×3 (10:46)
[2017-07-06] MEDS ORDERED: MAGNESIUM HYDROXIDE 2,400 MG/10 ML CUP PO PRN (10:46)
--- NOTE | 2017-07-06 11:08 | P.OP ---
Date of Procedure: 07/06/17 Preoperative Diagnosis: 1. Right intertrochanteric hip fracture with extension into the femoral neck 2. Right distal radius and ulnar styloid fracture 3. Osteoporosis with prior fragility fractures 4. History of lung, breast, and skin cancer Postoperative Diagnosis: Same Procedure(s) Performed: 1. Operative fixation of right intertrochanteric hip fracture with long cephalo -medullary device 2. Closed reduction right distal radius and ulnar styloid fracture with application of short arm splint Implants: Long TFN nail 400 mm x 11 mm, 100 mm helical blade, 48 mm distal interlocking screw Anesthesia: LENA Surgeon: Charlie Arvizu [employer]crete Bucket Unloader #1: Cortez Stinson Estimated Blood Loss (ml): 50 IV fluids (ml): 700 Urine output (ml): 300 Pathology: other (Proximal femur reamings) Condition: stable Disposition: PACU Indications for Procedure: The patient is a 66-year-old female with multiple medical problems including a history of lung cancer, breast cancer, and malignant melanoma who sustained a ground-level fall this past Saturday resulting in a minimally displaced intertrochanteric hip fracture and distal radius and ulnar styloid fractures. She was brought to the emergency department morning and admitted to our service. The patient was on Eliquis and internal medicine requested waiting 48 hours prior to surgery. I met with the patient preoperatively to discuss her x-rays and treatment options. Her x-rays showed a minimally displaced intertrochanteric hip fracture with extension into the femoral neck. My recommendation was to proceed with a long intramedullary hip screw to protect the entire femur given her history of cancer. We discussed potential risks and complications of surgery including but not limited to skin anesthesia , risk of superficial infection, risk of deep infection, risk of delayed wound healing, risk of intraoperative fracture, risk of postoperative fracture, risk of fracture nonunion, risk of fracture malunion, risk of varus collapse, risk of hardware failure, risk of DVT, risk of PE, risk of metastatic cancer causing her fracture, risk of chronic pain, risk of chronic swelling, risk of dissatisfaction with surgery, risk of inability to regain preinjury level of function, and possibly loss of life or limb. The patient voiced her understanding of this area and we also discussed that at the same setting we would closed reduced her wrist and apply a short arm splint. The patient provided her consent to go forward with both above-mentioned procedures. Description of Procedure: The patient was identified in preoperative holding and the correct right leg was marked with my initials. I reviewed the consent form with the patient and her . All their questions were answered. I also marked the right upper extremity. The patient was then brought back to the operating room. She was given a general anesthetic on her stretcher and then transferred to a fracture table. All bony prominences were well-padded. The right leg was placed in the boot of the fracture table. The left leg was placed in a well leg snell in position to facilitate imaging. A timeout was then performed identifying the correct patient, operative extremity, and procedure. The right arm while in the splint was draped across her chest and padded. At this point a closed reduction of the right hip was performed using a combination of longitudinal traction, adduction, and internal rotation. Fluoroscopy was brought in to verify reduction in 2 planes. The right leg was then prepped and draped in the standard sterile fashion. I began by making a stab incision in line with the femur at the level of the ASIS. A guidepin was placed through the subcutaneous tissue down to the tip of the greater trochanter. The guidewire was lined up with the long axis of the femur on both the AP and lateral views and then driven into the proximal femur to the level of the lesser trochanter. A soft tissue protector and opening reamer were then placed over the guidewire and the proximal femur was opened. Reamings were passed off to send for pathology given her history of cancer. The entry wire and opening reamer were then removed. A long ball-tipped guidewire was placed down distally to the level of the epiphyseal scar. I measured just under 410 mm so a 400 mm nail was dispensed. I reamed by hand up to 13 mm. A 400 x 11 mm nail was hooked up to the targeting arm and I verified that the targeting arm lined up with the slot for the helical blade. The nail was then passed over the guidewire with the handle anteriorly and as the nail past the isthmus the targeting arm was rotated laterally. The nail was fully seated distally. The trocar was placed through the targeting arm and a stab incision was made through the skin, subcutaneous tissue, and IT band down to the level of the lateral femur. The trocar was brought all the way down to bone. A guidepin was placed into the center center position on both views. The length of the wire measured 105 mm so a 100 mm helical blade was dispensed. The reamer was set to a depth of 100 and a path was drilled over the guide pin into the femoral head. The helical blade was then gently tapped into place and fully seated. Proximally the set screw was brought down and then backed off half a turn to allow compression. Attention was then turned distally. Perfect circles were obtained. Stab incision was made over the lateral aspect of the distal femur. A distal interlocking screw was placed using the freehand technique. The targeting arm was then removed proximally and final fluoroscopic images were taken. The patient was then taken out of the leg holders and the foot of the bed was placed. Her splint on the right arm was taken down. There was mild swelling but no open wounds. A gentle closed reduction was performed and a volar and dorsal plaster splint was applied over web roll. I applied a slight 3 point mold to her wrist. The splint was overwrapped with Jason wrap with her fingers in the safe position. The patient was then transferred off the fracture table onto her hospital bed, extubated, and brought to PACU having tolerated the procedure well. Cortez Stinson PA-C was required is a skilled physician assistant certified for patient positioning, surgical retraction, fracture reduction, implantation of hardware, closure of wounds, closed reduction and splinting of the wrist. Plan: The patient will be readmitted to the floor. She will need 2 doses of postoperative antibiotics. Given her extensive history of blood clotting disorder I will defer to primary care and internal medicine for DVT prophylaxis. She is to remain toe-touch weightbearing on the right leg. She is to be nonweightbearing on her right upper extremity.
[2017-07-06] MEDS ORDERED: MEPERIDINE 50 MG/ML SYRINGE IVP ONE (11:10)
--- NOTE | 2017-07-06 12:09 | PN ---
PROGRESS NOTE SUBJECTIVE: 66-year-old white female who is going to go through surgery today for right fracture of the humerus. Cardiovascular S1, S2. Lungs are clear. GI soft. Hematology: Negative Homans. ASSESSMENT: 1. Right humeral fracture. 2. History of lung cancer. 3. History of radial fracture. She has been off blood thinner for 72 hours. She should be okay for surgery as she has been on heparin preop. She will possibly go home on Eliquis. Possibly will be started up after surgery. Continue on subcutaneous heparin preop. MMODL / IJN: [id number] /
[2017-07-06] MEDS: HYDROcodone/APAP 5-325MG 1 EACH TAB PO PRN ×3 (12:14→23:10)
[2017-07-06] MEDS: SPIRONOLACTONE 25 MG TAB PO SCH (12:15)
[2017-07-06] MEDS: FUROSEMIDE 20 MG TAB PO SCH (12:15)
[2017-07-06] MEDS ORDERED: ESCITALOPRAM 20 MG TAB PO SCH (12:30)
[2017-07-06] MEDS: ESCITALOPRAM 20 MG TAB PO SCH (12:37)
[2017-07-06] MEDS: CALCIUM CARBONATE 500 MG CHEWABLE PO SCH ×2 (18:29→23:11)
[2017-07-06] MEDS: LACTATED RINGERS 1,000 ML IV SCH (21:46)
[2017-07-06] MEDS: SENNOSIDES-DOCUSATE SODIUM 1 EACH TAB PO SCH (21:49)
[2017-07-06] MEDS: LEVOFLOXACIN 750MG-D5W PMX 750 MG in DEXTROSE/WATER 1 150ML.BAG IVPB SCH (21:49)
[2017-07-06] MEDS: MIRTAZAPINE 15 MG TAB PO SCH (21:50)
[2017-07-07] MEDS: HYDROcodone/APAP 5-325MG 1 EACH TAB PO PRN ×4 (05:16→21:10)
[2017-07-07] MEDS: LEVOTHYROXINE 50 MCG TAB PO SCH (05:16)
[2017-07-07 08:01] LABS: Basophils % (A) 0 %; Eosinophils % (A) 0 %; HCT 30.2 % (34.0-46.0); Hypochromasia Slight; Lymphocytes # (A) 0.5 k/uL (1.0-4.8); Lymphocytes % (A) 8 %; MCH 28.4 pg (25.0-35.0); MCHC 32.1 g/dL (31.0-37.0); MCV 88.5 fL (80.0-100.0); Mean Platelet Volume 9.7; Monocytes # (A) 0.3 k/uL (0-1.0); Monocytes % (A) 5 %; Neutrophils # (A) 5.5 k/uL (1.3-7.7); Neutrophils % (A) 86 %; RBC 3.42 m/uL (3.80-5.40); RDW 15.7 % (11.5-15.5); WBC 6.3 k/uL (3.8-10.6)
[2017-07-07 08:03] LABS: HGB 9.7 gm/dL (11.4-16.0)
--- NOTE | 2017-07-07 08:13 | P.PN ---
Subjective Progress Note Date: 07/07/17 Principal diagnosis: Right IT fracture, right distal radius and ulna fractures Patient is seen at bedside this morning. She is postop day #1 from a closed reduction with internal fixation and stabilization utilizing IT nail for right intertrochanteric hip fracture. She also had a manual manipulation and reapplication of splint for her right distal radius and ulnar fractures. She has pain at the surgical site as expected but denies any new complaints. She denies numbness, tingling or calf pain. Review of systems is negative for fever , chills, chest pain, shortness of breath or other Objective - Vital Signs Vital signs: Vital Signs Temp 97.5 F L 07/07/17 00:58 Pulse 71 07/07/17 00:58 Resp 18 07/07/17 00:58 BP 93/51 07/07/17 00:58 Pulse Ox 93 L 07/07/17 00:58 Intake & Output 07/06/17 07/07/17 07/07/17 18:59 06:59 18:59 Intake Total 2100 1600 Output Total 350 800 Balance 1750 800 Intake: IV 800 Intake, IV Titration 1300 1600 Amount Lactated Ringers 1,000 ml 1000 As IV .[facility] Rx#: [id number] Sodium Chloride 0.9% 1, 300 1600 000 ml @ 100 mls/hr IV . Q10H [facility] Rx#:[id number] Output: Urine 300 800 Uretheral (King) 800 Estimated Blood Loss 50 Other: Voiding Method Indwelling Catheter - Exam Inspection of the right lower extremity shows benign surgical wound. There is no active bleeding or drainage. Her calf is soft and nontender. She has 2+ dorsalis pedis pulses less than 2 second capillary refill. Neurological status is intact throughout the right lower extremity with active motor and sensation to light touch intact - Constitutional General appearance: Present: no acute distress - Psychiatric Psychiatric: Present: A&O x's 3, appropriate affect, intact judgment & insight - Labs CBC & Chem 7: 07/07/17 06:32 07/04/17 13:13 Labs: Abnormal Lab Results - Last 24 Hours (Table) 07/06/17 07/07/17 Range/Units 16:00 06:32 RBC 3.42 L (3.80-5.40) m/uL Hgb 9.7 L D (11.4-16.0) gm/dL Hct 30.2 L (34.0-46.0) % RDW 15.7 H (11.5-15.5) % Vitamin D 25-Hydroxy 6.1 L (30.0-100.0) ng/mL Microbiology - Last 24 Hours (Table) 07/04/17 20:47 Urine Culture - Final Urine,Catheterized Escherichia coli Assessment and Plan (1) Distal radius fracture Narrative/Plan: She will continue with routine postop orthopedic protocol including pain management, wound care, physical therapy, DVT prophylaxis and medical management. Her primary care physician will be managing her postoperative anticoagulation. She may resume eloquis when okay with him. She is to be nonweightbearing with the right upper extremity and touchdown weightbearing with the right lower extremity. Extremities expect transfer to rehab in the next 1-2 days. Current Visit: Yes Status: Acute Priority: Medium Code(s): S52.509A - UNSP FRACTURE OF THE LOWER END OF UNSP RADIUS, INIT SNOMED Code(s): 125324024 (2) Intertrochanteric fracture of right hip Current Visit: Yes Status: Acute Priority: Medium Code(s): S72.141A - DISPLACED INTERTROCHANTERIC FRACTURE OF RIGHT FEMUR, INIT SNOMED Code(s): 081716560
[2017-07-07 08:29] LABS: Platelet Count 86 k/uL (150-450); Poikilocytosis (M) Present
[2017-07-07] MEDS: ESCITALOPRAM 20 MG TAB PO SCH (09:07)
[2017-07-07] MEDS: HEPARIN SODIUM,PORCINE 5,000 UNIT/ML 1 ML VIAL SQ SCH ×2 (09:07→15:35)
[2017-07-07] MEDS: CALCIUM CARBONATE 500 MG CHEWABLE PO SCH ×3 (09:07→21:12)
[2017-07-07] MEDS: FUROSEMIDE 20 MG TAB PO SCH (09:19)
[2017-07-07] MEDS: SPIRONOLACTONE 25 MG TAB PO SCH (09:19)
[2017-07-07] MEDS: MULTIVITAMINS, THERA 1 EACH TAB PO SCH (09:20)
[2017-07-07] MEDS: ERGOCALCIFEROL 50,000 UNIT CAP PO SCH (09:21)
[2017-07-07] MEDS: SODIUM CHLORIDE 0.9% 1,000 ML IV SCH ×2 (09:22→15:36)
[2017-07-07] MEDS: CHOLECALCIFEROL 1,000 UNIT TAB PO SCH (13:31)
[2017-07-07] MEDS: LACTATED RINGERS 1,000 ML IV SCH (15:36)
--- NOTE | 2017-07-07 19:58 | PN ---
PROGRESS NOTE SUBJECTIVE: 66-year-old white female. She is status post right hip pin placement into the right femur fracture times one day. She has a soft cast on her right arm. Cardiovascular S1-S2. Lungs clear. GI soft. Hematology negative Homans. ASSESSMENT: 1. Humeral fracture. Postop surgery. 2. History of lung cancer. 3. History of radial fracture. What we will do is stop subcu heparin, put back on home Eliquis. She was on preop. Possible discharge home or to rehab center in the next 2-3 days. MMODL / IJN: [id number] /
[2017-07-07] MEDS: MIRTAZAPINE 15 MG TAB PO SCH (21:11)
[2017-07-07] MEDS: APIXABAN 2.5 MG TABLET PO SCH (21:12)
[2017-07-07] MEDS: SENNOSIDES-DOCUSATE SODIUM 1 EACH TAB PO SCH (21:12)
[2017-07-08] MEDS: SODIUM CHLORIDE 0.9% 1,000 ML IV SCH (03:46)
[2017-07-08] MEDS: HYDROcodone/APAP 5-325MG 1 EACH TAB PO PRN ×2 (03:58→09:32)
[2017-07-08] MEDS: SPIRONOLACTONE 25 MG TAB PO SCH (08:31)
[2017-07-08] MEDS: MULTIVITAMINS, THERA 1 EACH TAB PO SCH (08:31)
[2017-07-08] MEDS: APIXABAN 2.5 MG TABLET PO SCH ×2 (08:31→19:58)
[2017-07-08] MEDS: CALCIUM CARBONATE 500 MG CHEWABLE PO SCH ×3 (08:31→19:59)
[2017-07-08] MEDS: FUROSEMIDE 20 MG TAB PO SCH (08:32)
[2017-07-08] MEDS: ESCITALOPRAM 20 MG TAB PO SCH (08:32)
[2017-07-08] MEDS: CHOLECALCIFEROL 1,000 UNIT TAB PO SCH (08:32)
[2017-07-08] MEDS: LEVOTHYROXINE 50 MCG TAB PO SCH (08:32)
[2017-07-08] MEDS ORDERED: MORPHINE ORAL SOLN 10 MG/5 ML CUP PO PRN ×2 (08:57→08:58)
--- NOTE | 2017-07-08 09:06 | P.PN ---
Subjective Progress Note Date: 07/08/17 Principal diagnosis: Right IT fracture, right distal radius and ulna fractures Patient is seen at bedside this morning. She is postop day #2 from a closed reduction with internal fixation and stabilization utilizing IT nail for right intertrochanteric hip fracture. She also had a manual manipulation and reapplication of splint for her right distal radius and ulnar fractures. She has pain at the surgical site as expected but is controlled and denies any new complaints. She denies numbness, tingling or calf pain. Review of systems is negative for fever, chills, chest pain, shortness of breath or other Objective - Vital Signs Vital signs: Vital Signs Temp 98.4 F 07/08/17 07:26 Pulse 69 07/08/17 07:26 Resp 16 07/08/17 07:26 BP 116/61 07/08/17 07:26 Pulse Ox 99 07/08/17 07:26 Intake & Output 07/07/17 07/08/17 07/08/17 18:59 06:59 18:59 Intake Total 900 237 Output Total 1800 Balance 900 -1563 Intake: Oral 900 237 Output: Urine 1800 Other: Voiding Method Indwelling Catheter Indwelling Catheter # Voids 0 - Exam Inspection of the right lower extremity shows benign surgical wounds. There is no active bleeding or drainage. Her calf is soft and nontender. She has 2+ dorsalis pedis pulses less than 2 second capillary refill. Neurological status is intact throughout the right lower extremity with active motor and sensation to light touch intact. RUE: splint in place and appropriately fitting. NVI intact throughout. - Constitutional General appearance: Present: no acute distress - Psychiatric Psychiatric: Present: A&O x's 3, appropriate affect, intact judgment & insight - Labs CBC & Chem 7: 07/07/17 06:32 07/04/17 13:13 Assessment and Plan (1) Distal radius fracture Narrative/Plan: She will continue with routine postop orthopedic protocol including pain management, wound care, physical therapy, DVT prophylaxis and medical management. Her primary care physician is managing her postoperative anticoagulation. She is to be nonweightbearing with the right upper extremity and touchdown weightbearing with the right lower extremity. Expect transfer to rehab tomorrow possibly Current Visit: Yes Status: Acute Priority: Medium Code(s): S52.509A - UNSP FRACTURE OF THE LOWER END OF UNSP RADIUS, INIT SNOMED Code(s): 148322403 (2) Intertrochanteric fracture of right hip Current Visit: Yes Status: Acute Priority: Medium Code(s): S72.141A - DISPLACED INTERTROCHANTERIC FRACTURE OF RIGHT FEMUR, INIT SNOMED Code(s): 580157271 Time with Patient: Less than 30
[2017-07-08] MEDS: MORPHINE ORAL SOLN 10 MG/5 ML CUP PO PRN (13:05)
[2017-07-08] MEDS ORDERED: HYDROcodone/APAP 7.5-325MG 1 EACH TAB PO PRN (13:45)
[2017-07-08] MEDS: HYDROcodone/APAP 7.5-325MG 1 EACH TAB PO PRN ×2 (14:56→19:59)
[2017-07-08] MEDS: MIRTAZAPINE 15 MG TAB PO SCH (19:58)
[2017-07-08] MEDS: SENNOSIDES-DOCUSATE SODIUM 1 EACH TAB PO SCH (19:58)
[2017-07-08] MEDS: LEVOFLOXACIN 750MG-D5W PMX 750 MG in DEXTROSE/WATER 1 150ML.BAG IVPB SCH (20:02)
--- NOTE | 2017-07-08 22:44 | PN ---
PROGRESS NOTE SUBJECTIVE: W[age]-old white female, status post right hip fracture with pin placement. CARDIOVASCULAR: S1, S2. LUNGS: Clear. GI: Soft. HEMATOLOGY: Negative Homans. PSYCH: Fair mood and affect. OPHTHALMOLOGIC: Pupils equal, round, reactive to light and accommodation. ASSESSMENT: 1. Fracture of the right humerus. 2. Right radial fracture. 3. History of lung cancer. Continue current medications. MMODL / IJN: [id number] /
[2017-07-09] MEDS: HYDROcodone/APAP 7.5-325MG 1 EACH TAB PO PRN ×5 (01:05→23:20)
[2017-07-09] MEDS: LEVOTHYROXINE 50 MCG TAB PO SCH (06:03)
[2017-07-09] MEDS: SPIRONOLACTONE 25 MG TAB PO SCH (07:25)
[2017-07-09] MEDS: CALCIUM CARBONATE 500 MG CHEWABLE PO SCH ×3 (07:25→20:25)
[2017-07-09] MEDS: MULTIVITAMINS, THERA 1 EACH TAB PO SCH (07:26)
[2017-07-09] MEDS: ESCITALOPRAM 20 MG TAB PO SCH (07:26)
[2017-07-09] MEDS: CHOLECALCIFEROL 1,000 UNIT TAB PO SCH (07:26)
[2017-07-09] MEDS: APIXABAN 2.5 MG TABLET PO SCH ×2 (07:26→20:25)
[2017-07-09] MEDS: FUROSEMIDE 20 MG TAB PO SCH (07:27)
[2017-07-09 07:33] LABS: Basophils % (A) 1 %; Eosinophils # (A) 0.2 k/uL (0-0.7); Eosinophils % (A) 3 %; HCT 28.9 % (34.0-46.0); HGB 9.1 gm/dL (11.4-16.0); Lymphocytes # (A) 1.1 k/uL (1.0-4.8); Lymphocytes % (A) 19 %; MCH 27.6 pg (25.0-35.0); MCHC 31.5 g/dL (31.0-37.0); MCV 87.8 fL (80.0-100.0); Mean Platelet Volume 8.7; Monocytes # (A) 0.5 k/uL (0-1.0); Monocytes % (A) 8 %; Neutrophils # (A) 4.1 k/uL (1.3-7.7); Neutrophils % (A) 68 %; Platelet Count 135 k/uL (150-450); RBC 3.29 m/uL (3.80-5.40); RDW 15.7 % (11.5-15.5)
--- NOTE | 2017-07-09 09:12 | P.DS ---
Providers Date of admission: 07/04/17 14:16 Expected date of discharge: 07/09/17 Attending physician: Charlie Arvizu Consults: 07/04/17 14:19 Consult Physician Stat Consulting Provider: Miles Collado Consult Reason/Comments: Medical management/surgical clearance Do you want consulting provider notified?: Yes 07/06/17 10:46 Consult Physician Routine Consulting Provider: Miles Collado Consult Reason/Comments: post op anticooagulation management Do you want consulting provider notified?: Yes Primary care physician: Physician Nonstaff - Discharge Diagnosis(es) (1) Distal radius fracture Current Visit: Yes Status: Acute Priority: Medium (2) Intertrochanteric fracture of right hip Patient was admitted to the OR on 07/06/2017 to undergo closed reduction with IT nail insertion and stabilization of right hip fracture. She had suffered a right IT hip fracture after a fall at home and desired to proceed with elective surgery after given informed consent. She underwent the above procedure which she tolerated well without complication. Postoperative hospital course has remained without complication. On day of discharge she is afebrile, vital signs stable, labs within acceptable ranges, tolerating by mouth meds and diet, voiding without difficulty, positive flatus, denies abdominal pain or calf pain , pain is controlled on oral pain medication and has no new complaints. Wound is benign, neurovascular status is intact, calf is soft and nontender, abdomen soft and nontender. Review of systems is negative for numbness, tingling, fever , chills, chest pain, shortness breath, nausea, vomiting, dizziness, headaches, slurred speech or other. Current Visit: Yes Status: Acute Priority: Medium Patient Condition at Discharge: Fair Plan - Discharge Summary Discharge Rx Participant: No New Discharge Prescriptions: New Docusate [Colace] 100 mg PO BID #60 capsule HYDROcodone/APAP 7.5-325MG [[place] 7.5-325] 1 - 2 tab PO Q6HR PRN #60 tab PRN Reason: Pain No Action Spironolactone [Aldactone] 50 mg PO DAILY Furosemide [Lasix] 20 mg PO DAILY Levothyroxine Sodium [Synthroid] 50 mcg PO DAILY Apixaban [Eliquis] 2.5 mg PO HS Mirtazapine 7.5 mg PO HS Escitalopram Oxalate [Lexapro] 1 tab PO RT-DAILY Discharge Medication List Spironolactone [Aldactone] 50 mg PO DAILY 09/24/14 [History] Furosemide [Lasix] 20 mg PO DAILY 04/11/15 [History] Apixaban [Eliquis] 2.5 mg PO HS 07/04/17 [History] Levothyroxine Sodium [Synthroid] 50 mcg PO DAILY 07/04/17 [History] Mirtazapine 7.5 mg PO HS 07/04/17 [History] Escitalopram Oxalate [Lexapro] 1 tab PO RT-DAILY 07/06/17 [History] Docusate [Colace] 100 mg PO BID #60 capsule 07/09/17 [Rx] HYDROcodone/APAP 7.5-325MG [[place] 7.5-325] 1 - 2 tab PO Q6HR PRN #60 tab [Rx] Follow up Appointment(s)/Referral(s): Nonstaff,Physician [Primary Care Provider] - 1-2 days Charlie Arvizu MD [Medical Doctor] - 1 Week Activity/Diet/Wound Care/Special Instructions: Keep wounds clean and dry Take meds as directed Follow-up with Dr. Arvizu in office Non weightbearing with RUE Touch down weightbearing RLE Discharge Disposition: TRANSFER TO SNF/ECF
[2017-07-09] MEDS: MORPHINE ORAL SOLN 10 MG/5 ML CUP PO PRN (20:24)
--- NOTE | 2017-07-09 23:23 | PN ---
PROGRESS NOTE SUBJECTIVE: [age]-old white female with fall on the right hip with femur fracture, status post pin placement in the right femur. Awaiting physical therapy. She is being treated for UTI. Eliquis is restarted for her chronic history of blood clots. Antibiotics will be continued for another 5 days for UTI. ASSESSMENT: 1. Urinary tract infection. 2. Right femoral fracture, status post surgery, pin placement. 3. Right radial fracture. Continue current treatments, UTI treatments. Home medications. MMODL / IJN: [id number] /
[2017-07-10] MEDS: SENNOSIDES-DOCUSATE SODIUM 1 EACH TAB PO SCH ×2 (00:43→21:22)
[2017-07-10] MEDS: MIRTAZAPINE 15 MG TAB PO SCH ×2 (00:43→21:22)
[2017-07-10] MEDS: HYDROcodone/APAP 7.5-325MG 1 EACH TAB PO PRN ×4 (05:06→23:24)
[2017-07-10] MEDS: LEVOTHYROXINE 50 MCG TAB PO SCH (05:06)
[2017-07-10] MEDS: ESCITALOPRAM 20 MG TAB PO SCH (08:52)
[2017-07-10] MEDS: CALCIUM CARBONATE 500 MG CHEWABLE PO SCH ×3 (08:52→21:22)
[2017-07-10] MEDS: APIXABAN 2.5 MG TABLET PO SCH ×2 (08:52→21:22)
[2017-07-10] MEDS: ERGOCALCIFEROL 50,000 UNIT CAP PO SCH (08:53)
[2017-07-10] MEDS: CHOLECALCIFEROL 1,000 UNIT TAB PO SCH (13:19)
[2017-07-10] MEDS: MULTIVITAMINS, THERA 1 EACH TAB PO SCH (13:19)
[2017-07-10] MEDS: SPIRONOLACTONE 25 MG TAB PO SCH (15:12)
[2017-07-10] MEDS: FUROSEMIDE 20 MG TAB PO SCH (15:12)
--- NOTE | 2017-07-10 18:33 | PN ---
PROGRESS NOTE SUBJECTIVE: 66-year-old white female with a fall, right hip, femur fracture, right radial fracture, UTI. Levaquin will be given for 5 more days. Awaiting discharge to rehab center. Her pain is being controlled. Vital signs stable. Afebrile. Cardiovascular S1, S2. Lungs clear. GI soft. Hematology negative Homans. ASSESSMENT: 1. Radial fracture of the right hand. 2. Right femur fracture. 3. Hypothyroidism. 4. Generalized debility. 5. Urinary tract infection. Continue with Levaquin for 4 more days. Continue with PT, OT. MMODL / IJN: [id number] /
[2017-07-10] MEDS ORDERED: LEVOFLOXACIN 750 MG TAB PO SCH (21:00)
[2017-07-11] MEDS: HYDROcodone/APAP 7.5-325MG 1 EACH TAB PO PRN ×2 (06:15→12:10)
[2017-07-11] MEDS: LEVOTHYROXINE 50 MCG TAB PO SCH (06:15)
[2017-07-11 08:32] VITALS: BP 107/57; PULSE 110; RESP 16; TEMP 100.8
[2017-07-11 08:32] LABS: Anisocytosis Slight; Basophils % (A) 0 %; Eosinophils # (A) 0.1 k/uL (0-0.7); Eosinophils % (A) 3 %; HCT 24.8 % (34.0-46.0); Lymphocytes # (A) 0.8 k/uL (1.0-4.8); Lymphocytes % (A) 19 %; MCH 27.6 pg (25.0-35.0); MCHC 32.2 g/dL (31.0-37.0); MCV 85.7 fL (80.0-100.0); Mean Platelet Volume 8.3; Monocytes # (A) 0.3 k/uL (0-1.0); Monocytes % (A) 8 %; Neutrophils % (A) 69 %; Platelet Count 163 k/uL (150-450); RBC 2.89 m/uL (3.80-5.40); RDW 16.1 % (11.5-15.5); WBC 4.3 k/uL (3.8-10.6)
--- NOTE | 2017-07-11 08:49 | P.PN ---
Subjective Progress Note Date: 07/11/17 Principal diagnosis: Right IT fracture, right distal radius and ulna fractures Patient is seen at bedside this morning. She is postop day #4 from a closed reduction with internal fixation and stabilization utilizing IT nail for right intertrochanteric hip fracture. She also had a manual manipulation and reapplication of splint for her right distal radius and ulnar fractures. She has pain at the surgical site as expected but is controlled and denies any new complaints. She denies numbness, tingling or calf pain. Review of systems is negative for fever, chills, chest pain, shortness of breath or other Objective - Vital Signs Vital signs: Vital Signs Temp 100.8 F H 07/11/17 07:50 Pulse 110 H 07/11/17 07:50 Resp 16 07/11/17 07:50 BP 107/57 07/11/17 07:50 Pulse Ox 94 L 07/11/17 07:50 Intake & Output 07/10/17 07/11/17 07/11/17 18:59 06:59 18:59 Intake Total 900 1670 Output Total 590 Balance 900 1080 Intake: Oral 900 1670 Output: Urine 590 Other: Voiding Method Bedside Commode Bedpan # Voids 1 2 # Bowel Movements 1 - Exam Inspection of the right lower extremity shows benign surgical wounds. There is no active bleeding or drainage. Her calf is soft and nontender. She has 2+ dorsalis pedis pulses less than 2 second capillary refill. Neurological status is intact throughout the right lower extremity with active motor and sensation to light touch intact. RUE: splint in place and appropriately fitting. NVI intact throughout. - Constitutional General appearance: Present: no acute distress - Psychiatric Psychiatric: Present: A&O x's 3, appropriate affect, intact judgment & insight - Labs CBC & Chem 7: 07/11/17 07:23 07/04/17 13:13 Labs: Abnormal Lab Results - Last 24 Hours (Table) 07/11/17 Range/Units 07:23 RBC 2.89 L (3.80-5.40) m/uL Hgb 8.0 L (11.4-16.0) gm/dL Hct 24.8 L (34.0-46.0) % RDW 16.1 H (11.5-15.5) % Lymphocytes # 0.8 L (1.0-4.8) k/uL Assessment and Plan (1) Distal radius fracture Narrative/Plan: She will continue with routine postop orthopedic protocol including pain management, wound care, physical therapy, DVT prophylaxis and medical management. Her primary care physician is managing her postoperative anticoagulation. She is to be nonweightbearing with the right upper extremity and touchdown weightbearing with the right lower extremity. Pending transfer to rehab. Current Visit: Yes Status: Acute Priority: Medium Code(s): S52.509A - UNSP FRACTURE OF THE LOWER END OF UNSP RADIUS, INIT SNOMED Code(s): 722498106 (2) Intertrochanteric fracture of right hip Current Visit: Yes Status: Acute Priority: Medium Code(s): S72.141A - DISPLACED INTERTROCHANTERIC FRACTURE OF RIGHT FEMUR, INIT SNOMED Code(s): 719590146 Time with Patient: Less than 30
[2017-07-11 09:13] VITALS: BMI 25.0
[2017-07-11] MEDS: CALCIUM CARBONATE 500 MG CHEWABLE PO SCH (09:40)
[2017-07-11] MEDS: SPIRONOLACTONE 25 MG TAB PO SCH (09:40)
[2017-07-11] MEDS: APIXABAN 2.5 MG TABLET PO SCH (09:42)
[2017-07-11] MEDS: ESCITALOPRAM 20 MG TAB PO SCH (09:42)
[2017-07-11] MEDS: FUROSEMIDE 20 MG TAB PO SCH (09:42)
[2017-07-11] MEDS: MULTIVITAMINS, THERA 1 EACH TAB PO SCH (13:31)
[2017-07-11] MEDS: CHOLECALCIFEROL 1,000 UNIT TAB PO SCH (13:31)
== END 2017-07-11 13:35 | DRG 481 ==
LOC: EC 10:52 → 3SUR 14:16
PROVIDERS: ADMIT Orthopaedic Surgery; ATTEND Orthopaedic Surgery
PROC: 2W3CX1Z Immobilization of Right Lower Arm using Splint (ICD-10-PCS; 2017-07-04)
PROC: 0PSHXZZ Reposition Right Radius, External Approach (ICD-10-PCS; 2017-07-06)
PROC: 0PSKXZZ Reposition Right Ulna, External Approach (ICD-10-PCS; 2017-07-06)
PROC: 0QS636Z Reposition Right Upper Femur with Intramedullary Internal Fixation Device, Percutaneous Approach (ICD-10-PCS; principal; 2017-07-06 08:00)
DX: S72.141A Displaced intertrochanteric fracture of right femur, initial encounter for closed fracture (principal); S52.501A Unspecified fracture of the lower end of right radius, initial encounter for closed fracture; S52.611A Displaced fracture of right ulna styloid process, initial encounter for closed fracture; N39.0 Urinary tract infection, site not specified; D68.9 Coagulation defect, unspecified; K74.60 Unspecified cirrhosis of liver; E86.0 Dehydration; K52.9 Noninfective gastroenteritis and colitis, unspecified; F32.9 Major depressive disorder, single episode, unspecified; E03.9 Hypothyroidism, unspecified; M81.0 Age-related osteoporosis without current pathological fracture; Z79.01 Long term (current) use of anticoagulants; Z79.890 Hormone replacement therapy; Z79.899 Other long term (current) drug therapy; Z85.118 Personal history of other malignant neoplasm of bronchus and lung; Z85.3 Personal history of malignant neoplasm of breast; Z85.820 Personal history of malignant melanoma of skin; Z85.828 Personal history of other malignant neoplasm of skin; Z86.718 Personal history of other venous thrombosis and embolism; Z90.49 Acquired absence of other specified parts of digestive tract; Z90.710 Acquired absence of both cervix and uterus; Z90.13 Acquired absence of bilateral breasts and nipples; Z87.891 Personal history of nicotine dependence; Z85.42 Personal history of malignant neoplasm of other parts of uterus; Z87.440 Personal history of urinary (tract) infections; Z86.19 Personal history of other infectious and parasitic diseases; Z88.2 Allergy status to sulfonamides; Z88.8 Allergy status to other drugs, medicaments and biological substances; Z88.1 Allergy status to other antibiotic agents; Z88.0 Allergy status to penicillin; Z91.013 Allergy to seafood; Z82.5 Family history of asthma and other chronic lower respiratory diseases; Z83.79 Family history of other diseases of the digestive system; W18.30XA Fall on same level, unspecified, initial encounter; Y92.009 Unspecified place in unspecified non-institutional (private) residence as the place of occurrence of the external cause
CPT/HCPCS: 29125; 36415; 51702; 70450; 71045; 72125; 73502; 80053; 81001; 82150; 82306; 82550; 82553; 83605; 83690; 83735; 84484; 85025; 85610; 85730; 87077; 87086; 87186; 88305; 88311; 88341; 88342; 93005; 94760; 96361; 96374; 96375; 99285

== ENCOUNTER 2017-07-22 21:55 | Inpatient (IN) | payer MEDICARE ==
[2017-07-22] MEDS ORDERED: SODIUM CHLORIDE 0.9% 1,000 ML IV ONE (22:07)
[2017-07-22 22:41] LABS: Anisocytosis Slight; Basophils % (A) 0 %; Eosinophils # (A) 0.1 k/uL (0-0.7); Eosinophils % (A) 1 %; HCT 27.3 % (34.0-46.0); HGB 8.5 gm/dL (11.4-16.0); Hypochromasia Moderate; Lymphocytes # (A) 0.8 k/uL (1.0-4.8); Lymphocytes % (A) 9 %; MCH 27.1 pg (25.0-35.0); MCHC 30.9 g/dL (31.0-37.0); MCV 87.7 fL (80.0-100.0); Mean Platelet Volume 7.7; Monocytes # (A) 0.6 k/uL (0-1.0); Monocytes % (A) 7 %; Neutrophils % (A) 81 %; Platelet Count 327 k/uL (150-450); RBC 3.12 m/uL (3.80-5.40); RDW 16.4 % (11.5-15.5); WBC 8.7 k/uL (3.8-10.6)
[2017-07-22 22:48] LABS: Albumin 2.8 g/dL (3.5-5.0); Calcium 8.8 mg/dL (8.4-10.2); Potassium 5.2 mmol/L (3.5-5.1); Total Bilirubin 0.8 mg/dL (0.2-1.3); Total Protein 5.6 g/dL (6.3-8.2)
[2017-07-22 22:57] LABS: Appearance,Urine Turbid (Clear); Bacteria,Urine Moderate /hpf; Bilirubin,Urine Negative (Negative); Blood,Urine Small (Negative); Budding Yeast,Urine Few /hpf; Color,Urine Yellow; Glucose,Urine (UA) Negative (Negative); Ketones,Urine Negative (Negative); Leukocyte Esterase,Urine Large (Negative); Nitrite,Urine Positive (Negative); Protein,Urine 1+ (Negative); Specific Gravity,Urine 1.013 (1.001-1.035); Urobilinogen,Urine <2.0 mg/dL (<2.0); WBC,Urine >182 /hpf (0-5)
[2017-07-22] MEDS ORDERED: ERTAPENEM 1 GM in SODIUM CHLORIDE 0.9% 50 ML IVPB STA (23:02)
--- NOTE | 2017-07-22 23:03 | ED ---
General Adult HPI - General Chief complaint: Recheck/Abnormal Lab/Rx Stated complaint: DEHYDRATION Time Seen by Provider: 07/22/17 22:04 Source: patient Mode of arrival: EMS Limitations: physical limitation - History of Present Illness Initial comments: This is a 66-year-old female with a history of recurrent UTIs who presents emergency department for acute kidney injury. The patient recently sustained a right forearm fracture has been at a nursing facility. They have been checking her blood over the last few days and her creatinine has been elevated. She was sent in here for IV fluid hydration. The patient states that she does feel little bit feet fatigued and lightheaded. She denies any dysuria or hematuria. No fevers or chills. No other acute complaints. - Related Data Home Medications Medication Instructions Recorded Confirmed Spironolactone [Aldactone] 50 mg PO DAILY 09/24/14 07/22/17 Furosemide [Lasix] 20 mg PO DAILY 04/11/15 07/22/17 Levothyroxine Sodium [Synthroid] 50 mcg PO DAILY 07/04/17 07/22/17 Escitalopram Oxalate [Lexapro] 20 mg PO DAILY 07/06/17 07/22/17 Apixaban [Eliquis] 2.5 mg PO HS@2100 07/22/17 07/22/17 Bisacodyl [Dulcolax] 10 mg RECTAL DAILY PRN 07/22/17 07/22/17 Cholecalciferol [Vitamin D3] 2,000 unit PO DAILY@1700 07/22/17 07/22/17 Ergocalciferol (Vitamin D2) 50,000 unit PO Q72H 07/22/17 07/22/17 [Vitamin D2] HYDROcodone/APAP 10-325MG [[place] 1 tab PO Q4HR PRN 07/22/17 07/22/17 10-325] Magnesium Hydroxide [Milk of 2,400 mg PO DAILY PRN 07/22/17 07/22/17 Magnesia] Multivitamins, Thera [Multivitamin 1 tab PO DAILY@1700 07/22/17 07/22/17 (formulary)] Na Phos,M-B/Na Phos,Di-Ba [Fleet 133 ml RECTAL DAILY PRN 07/22/17 07/22/17 Adult] Previous Rx's Medication Instructions Recorded Calcium Carbonate [Tums] 500 mg PO TID chew 07/09/17 Docusate [Colace] 100 mg PO BID #60 capsule 07/09/17 Allergies Allergy/AdvReac Type Severity Reaction Status Date / Time VANESSA Inhibitors Allergy Unknown Verified 07/22/17 22:34 baclofen Allergy Confusion Verified 07/22/17 22:34 cefepime HCl [From Maxipime] Allergy Rash/Hives Verified 07/22/17 22:34 cephalexin Allergy Rash/Hives Verified 07/22/17 22:34 ciprofloxacin Allergy Rash/Hives Verified 07/22/17 22:34 clindamycin Allergy Nausea & Verified 07/22/17 22:34 Vomiting erythromycin base Allergy Rash/Hives Verified 07/22/17 22:34 heparin Allergy Unknown Verified 07/22/17 22:34 lisinopril [From Zestril] Allergy Unknown Verified 07/22/17 22:34 lorazepam [From Ativan] Allergy Confusion Verified 07/22/17 22:34 metronidazole [From Flagyl] Allergy Nausea & Verified 07/22/17 22:34 Vomiting penicillin G Allergy Rash/Hives Verified 07/22/17 22:34 shellfish derived [Shellfish] Allergy Swelling Verified 07/22/17 22:34 Sulfa (Sulfonamide Allergy Swelling Verified 07/22/17 22:34 Antibiotics) steroids Allergy Unknown Uncoded 07/22/17 22:34 Review of Systems ROS Statement: Those systems with pertinent positive or pertinent negative responses have been documented in the HPI. ROS Other: All systems not noted in ROS Statement are negative. Past Medical History Past Medical History: Blood Disorder, Cancer, Deep Vein Thrombosis (DVT), GI Bleed, Liver Disease, Respiratory Disorder Additional Past Medical History / Comment(s): 09-10-14 admitted to [facility] with c/o blood in urine and rectal bleeding, DX GI BLEED AND UTI. other hx: Breast Ca x2 ; Skin Ca squamous and melanoma; uterine ca, lung cancer LOWER LEFT LOBE 70%, c- diff- 08-13-14 snd feb 2017, on xarelto for dvt and portal vein thrombosis. 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 History of Any Multi-Drug Resistant Organisms: C-DIFF Date of last positivie culture/infection: 08/13/14 and MDRO Source:: stool Past Surgical History: Adenoidectomy, Appendectomy, Breast Surgery, Cholecystectomy, Hysterectomy, Tonsillectomy Additional Past Surgical History / Comment(s): Mastectomy bilateral; Left lower lobectomy 70%; exploratory laparotomy, LASER SX AT [facility] FOR MELANOMA- CURRENTLY HAS 100 SPOTS THAT THEY ARE WATCHING REMMOVED 4 SO FAR.lasik eye sx, past "abcess on back(ecoli) pt stated they had to open a channel,removed 2 ribs and some muscle and it was open to drain to 18 months". surgical repair to Right wrist, right femur, and right hip. Additional Past Anesthesia/Blood Transfusion Reaction / Comment(s): PAST BLOOD TRANSFUSIONS- NO COMPLICATIONS Past Psychological History: Depression Smoking Status: Former smoker Past Alcohol Use History: None Reported Past Drug Use History: None Reported - Past Family History Father Additional Family Medical History / Comment(s): FROM COMPLICATIONS OF SCHRAPNEL IN BODY Mother Additional Family Medical History / Comment(s): STOMACH PROBLEMS, EMPHYSEMA General Exam - General Exam Comments Initial Comments: Constitutional: Awake alert Appears comfortable Head: Normocephalic atraumatic , oral mucosa are tacky Eyes: no conjunctival injection No scleral icterus EOMI Neck: No JVD Supple Heart: Regular rate rhythm normal S1-S2 no murmurs Lungs: Clear to auscultation bilaterally No wheezing No rales Abdomen: Soft nondistended nontender Extremities: Non edematous DP pulses intact Radial pulses intact, splint on right forearm Neuro: A&Ox3 No focal neurologic deficits Psych: Appropriate mood and affect Limitations: physical limitation Course Vital Signs 07/22/17 22:05 Temperature 100.3 F H Pulse Rate 87 Respiratory 18 Rate Blood Pressure 137/63 O2 Sat by Pulse 96 Oximetry Medical Decision Making - Medical Decision Making This is a 66-year-old female who presents emergency department for acute kidney injury. The patient was also found to have a urinary tract infection. Based on prior cultures and the patient's ALLERGIES normocephalic and that she can get would be ertapenem for her UTI. She'll be started on this and IV fluids and kept in the hospital. Dr. Collado accepts the admission. - Lab Data Result diagrams: 07/22/17 22:23 07/22/17 22:23 Lab Results 05/07/22/17 07/22/17 Range/Units 22:23 22:23 22:42 WBC 8.7 (3.8-10.6) k/uL RBC 3.12 L (3.80-5.40) m/uL Hgb 8.5 L (11.4-16.0) gm/dL Hct 27.3 L (34.0-46.0) % MCV 87.7 (80.0-100.0) fL MCH 27.1 (25.0-35.0) pg MCHC 30.9 L (31.0-37.0) g/dL RDW 16.4 H (11.5-15.5) % Plt Count 327 (150-450) k/uL Neutrophils % 81 % Lymphocytes % 9 % Monocytes % 7 % Eosinophils % 1 % Basophils % 0 % Neutrophils # 7.0 (1.3-7.7) k/uL Lymphocytes # 0.8 L (1.0-4.8) k/uL Monocytes # 0.6 (0-1.0) k/uL Eosinophils # 0.1 (0-0.7) k/uL Basophils # 0.0 (0-0.2) k/uL Hypochromasia Moderate Anisocytosis Slight Sodium 144 (137-145) mmol/L Potassium 5.2 H (3.5-5.1) mmol/L Chloride 106 (98-107) mmol/L Carbon Dioxide 24 (22-30) mmol/L Anion Gap 14 mmol/L BUN 64 H (7-17) mg/dL Creatinine 3.47 H (0.52-1.04) mg/dL Est GFR (CKD-EPI)AfAm 15 (>60 ml/min/1.73 sqM) Est GFR (CKD-EPI)NonAf 13 (>60 ml/min/1.73 sqM) Glucose 116 H (74-99) mg/dL Calcium 8.8 (8.4-10.2) mg/dL Total Bilirubin 0.8 (0.2-1.3) mg/dL AST 36 (14-36) U/L ALT 35 (9-52) U/L Alkaline Phosphatase 307 H (38-126) U/L Total Protein 5.6 L (6.3-8.2) g/dL Albumin 2.8 L (3.5-5.0) g/dL Urine Color Yellow Urine Appearance Turbid H (Clear) Urine pH 6.0 (5.0-8.0) Ur Specific [place] 1.013 (1.001-1.035) Urine Protein 1+ H (Negative) Urine Glucose (UA) Negative (Negative) Urine Ketones Negative (Negative) Urine Blood Small H (Negative) Urine Nitrite Positive H (Negative) Urine Bilirubin Negative (Negative) Urine Urobilinogen <2.0 (<2.0) mg/dL Ur Leukocyte Esterase Large H (Negative) Urine WBC >182 H (0-5) /hpf Urine WBC Clumps Many H (None) /hpf Urine Bacteria Moderate H (None) /hpf Urine Yeast ([place]) Few H (None) /hpf Disposition Clinical Impression: REBECCA (acute kidney injury), UTI (urinary tract infection) Disposition: ADMITTED IP TO THIS [facility] Condition: Stable
[2017-07-22] MEDS ORDERED: ACETAMINOPHEN TAB 325 MG TAB PO PRN (23:06)
[2017-07-22] MEDS ORDERED: NALOXONE 0.4 MG/ML 1 ML VIAL IV PRN (23:06)
[2017-07-22] MEDS: SODIUM CHLORIDE 0.9% 1,000 ML IV SCH (23:30)
[2017-07-22] MEDS ORDERED: HYDROcodone/APAP 10-325MG 1 EACH TAB PO PRN (23:34)
[2017-07-23] MEDS ORDERED: HYDROcodone/APAP 10-325MG 1 EACH TAB PO PRN (00:41)
[2017-07-23] MEDS ORDERED: MAGNESIUM HYDROXIDE 2,400 MG/10 ML CUP PO PRN (00:41)
[2017-07-23] MEDS ORDERED: BISACODYL 10 MG SUPP RECTAL PRN (00:41)
[2017-07-23] MEDS: HYDROcodone/APAP 10-325MG 1 EACH TAB PO PRN ×4 (04:48→20:27)
[2017-07-23] MEDS: LEVOTHYROXINE 50 MCG TAB PO SCH (05:35)
[2017-07-23 07:31] LABS: Anisocytosis Slight; Basophils % (A) 0 %; Eosinophils # (A) 0.1 k/uL (0-0.7); Eosinophils % (A) 1 %; HCT 23.5 % (34.0-46.0); HGB 7.3 gm/dL (11.4-16.0); Hypochromasia Moderate; Lymphocytes # (A) 0.8 k/uL (1.0-4.8); Lymphocytes % (A) 15 %; MCH 26.8 pg (25.0-35.0); MCHC 30.9 g/dL (31.0-37.0); MCV 86.7 fL (80.0-100.0); Mean Platelet Volume 7.8; Monocytes # (A) 0.5 k/uL (0-1.0); Monocytes % (A) 9 %; Neutrophils # (A) 4.1 k/uL (1.3-7.7); Neutrophils % (A) 73 %; Platelet Count 232 k/uL (150-450); RBC 2.71 m/uL (3.80-5.40); RDW 16.4 % (11.5-15.5); WBC 5.6 k/uL (3.8-10.6)
[2017-07-23 07:33] LABS: Calcium 8.1 mg/dL (8.4-10.2); Potassium 4.9 mmol/L (3.5-5.1)
[2017-07-23] MEDS: ESCITALOPRAM 20 MG TAB PO SCH (09:17)
[2017-07-23] MEDS: APIXABAN 2.5 MG TABLET PO SCH ×2 (09:17→20:04)
[2017-07-23] MEDS: CALCIUM CARBONATE 500 MG CHEWABLE PO SCH ×3 (09:18→20:28)
[2017-07-23] MEDS: DOCUSATE 100 MG CAP PO SCH ×2 (09:18→20:04)
[2017-07-23] MEDS: MULTIVITAMINS, THERA 1 EACH TAB PO SCH (18:04)
[2017-07-23] MEDS: CHOLECALCIFEROL 1,000 UNIT TAB PO SCH (18:04)
[2017-07-23] MEDS: ERTAPENEM 0.5 GM in SODIUM CHLORIDE 0.9% 50 ML IVPB SCH (20:28)
[2017-07-23] MEDS ORDERED: ERTAPENEM 1 GM in SODIUM CHLORIDE 0.9% 50 ML IVPB SCH (21:00)
--- NOTE | 2017-07-23 21:13 | CONS ---
CONSULTATION DATE OF SERVICE: 07/23/2017. REASON FOR CONSULTATION: Urinary tract infection and need for a PICC line. HISTORY OF PRESENT ILLNESS: The patient is a 66-year-old female who was recently admitted at [facility] after the patient did have a fall at home with a right hip intertrochanteric fracture and right wrist fracture. The patient is status post IM nailing of the right hip intertrochanteric fracture and casting for the right wrist fracture. The patient was subsequently discharged to [facility] for rehabilitation. Apparently the patient did have blood work done at the facility and she was noticed to have elevated creatinine and concern for dehydration; hence, the patient has been sent to the [facility] for recheck of her abnormal lab treatment for the same. She was noticed to have a low-grade fever of 100.3; however, her white count was normal. The patient did have elevated BUN and creatinine. The patient did have a straight cath UA done which was positive with leukocyte esterase and many WBCs. The patient does have multiple antibiotic allergies, mostly with a rash and hives. Hence, the patient has been started on Invanz 1 g daily which subsequently switched to 500 mg daily. The patient has been admitted to the hospital. Infectious Disease was consulted for recommendation for antibiotic therapy and need for a PICC line for outpatient IV antibiotic. The patient's main symptom is to be feeling weak and lightheaded and fatigued; however, the patient denies having any chest pain or shortness of breath or cough. The patient denies significant abdominal pain. No diarrhea and no burning or frequency of urine. REVIEW OF SYSTEMS: CONSTITUTIONAL: Positive for weakness and low-grade fever as mentioned above. EYES: No complaint. ENT: No complaint. RESPIRATORY: No complaint. CARDIOVASCULAR: No complaint. GENITOURINARY: As per HPI. GASTROINTESTINAL: No complaint. MUSCULOSKELETAL: As per HPI. INTEGUMENTARY: No complaint. PSYCHOLOGICAL: No complaint. ENDOCRINE: No complaint. NEUROLOGIC: No complaint. PAST MEDICAL HISTORY: DVT, GI bleed, skin cancer, breast cancer and recent right hip and wrist fracture. PAST SURGICAL HISTORY: Adenoidectomy, appendectomy, breast surgery, cholecystectomy, hysterectomy, tonsillectomy, bilateral mastectomy, left lobectomy, and IM nailing of the right intertrochanteric fracture. SOCIAL HISTORY: Remote history of smoking. No drinking or any drug use. FAMILY HISTORY: Father from complication of shrapnel in the body. Mother, history of emphysema. ALLERGIES: To multiple medications, antibiotics. She has allergy to CEFEPIME, CEPHALEXIN, CIPROFLOXACIN, CLINDAMYCIN, ERYTHROMYCIN, PENICILLIN, mostly with a rash and hives, and also allergic to SULFA. MEDICATION: Include the patient is currently on: 1. Tylenol. 2. [place]. 3. Eliquis. 4. Tums. 5. Vitamin D3. 6. Colace. 7. Vitamin D2. 8. Ativan 0.5 mg daily. 9. Lexapro. 10.Synthroid. 11.Milk of magnesia. 12.Theragran. 13.Narcan. EXAMINATION: Blood pressure is 137/77 with a pulse of 92, temperature 99.1, T-max 100.3. She is 96% on room air. General description is an elderly female, lying in bed in no distress. No tachypnea or accessory muscle of respiration use. HEENT shows pallor. No scleral icterus. Oral mucosa is moist. No pharyngeal erythema or thrush. NECK: Trachea central. No thyromegaly. LUNGS: Unlabored breathing. Clear to auscultation anteriorly. No wheeze or crackle. HEART: S1, S2. Regular rate and rhythm rate and rhythm. ABDOMEN: Soft, no tenderness. No guarding. No rigidity. EXTREMITIES: No edema of feet. SKIN: No rash or mass palpable. NEUROLOGIC: The patient is awake, alert, oriented x3. Mood and affect normal. LABS: Hemoglobin 7.8, white count 5.6. BUN of 16, creatinine 2.93. Admission creatinine was 3.47. Potassium is 4.9. Urine is positive leukocyte esterase and more than 1 WBC, moderate bacteria. Blood cultures currently pending. DIAGNOSTIC IMPRESSION: 1. Patient admitted to the hospital with weakness and lethargy. The patient did have a low-grade fever, more likely multifactorial. The patient did have a component of acute dehydration with elevated BUN and creatinine, plus/minus a component of urinary tract infection, likely from an enteric gram-negative pathogen not entirely excluded, more likely a cystitis rather than deep infection. 2. Patient does have multiple antibiotic allergies that will limit the number of antibiotics that can be safely used. PLAN: 1. Keep the patient on Invanz 0.5 mg g daily. This should cover for possible leg gram- negative pathogen responsible for her UTI. 2. Will be able to finish therapy with either peripheral IV or main line; hence, hold on placing a PICC line. 3. We will check an ultrasound, will gain a better idea in view of the elevated BUN and creatinine as well as UTI to measure any evidence of . 4. Will follow up on the clinical condition and culture to further adjust medication if needed. Thank you for this consultation. Will follow this patient along with you. MMODL / IJN: [id number] /
--- NOTE | 2017-07-23 21:46 | US ---
EXAMINATION TYPE: US kidneys/renal and bladder DATE OF EXAM: 07/23/2017 COMPARISON: CT September 30, 2014 and older study September 24, 2014 US 2014 CLINICAL HISTORY: UTI , Elevated Creatinine. UTI, elevated creatinine, exam done portable. EXAM MEASUREMENTS: Right Kidney: 10.9 x 6.2 x 5.3 cm Left Kidney: 9.0 x 5.1 x 4.6 cm Right Kidney: moderate to severe hydronephrosis extending into ureter Left Kidney: visualization very limited by large amount of overlying bowel gas, appears much smaller in size when compared to right kidney Bladder: irregular posterior wall with 4.2 x 1.3 x 4.4cm hypoechoic area along posterior wall Bilateral Jets seen: no Ascites seen within pelvis There is moderate to severe right-sided hydronephrosis on initial images. Urinary bladder is well dis tended making evaluation suboptimal due to prominence. Nonspecific vague echoes posterior bladder wal l could reflect debris versus eccentric mass felt much less likely. There is suggestion of lobulation or thin septation in the bladder. Some adjacent ascites is present. Left kidney is poorly visualized and does suboptimally evaluated. Cortical scarring and atrophy suspected. IMPRESSION: Suboptimal evaluation of left kidney, suspected progressive atrophy and scarring in left kidney. Subo ptimal evaluation of bladder, visualized portions are not completely anechoic suggesting cystitis. Ne w moderate to severe right-sided hydronephrosis may warrant further clinical workup. Some recurrent a scites is seen.
--- NOTE | 2017-07-23 22:31 | HP ---
HISTORY AND PHYSICAL CHIEF COMPLAINT: This is a 66-year-old white female with acute renal tubular injury, dehydration and drug-resistant UTI, admitted to the hospital due to worsening renal dysfunction and severe dehydration. She was admitted with IV fluids. Her creatinine has improved overnight to about 3s to mid to high 2s. Home medications have been stopped as far as Lasix and Aldactone go. She is also on Synthroid, Lexapro, Eliquis, vitamin D3 and vitamin D2. She is status post right femur fracture with surgery and right radial fracture, for which she has a short-arm cast on the right arm. ALLERGIES: 1. VANESSA INHIBITORS. 2. BACLOFEN. 3. CEPHALEXIN. 4. CIPROFLOXACIN. 5. CLINDAMYCIN. 6. ERYTHROMYCIN. 7. HEPARIN. 8. ZESTRIL. 9. ATIVAN. 10.FLAGYL. 11.SHELLFISH. 12.STEROIDS. REVIEW OF SYSTEMS: Fourteen-point review of systems negative except for mentioned in the HPI. PAST MEDICAL HISTORY: 1. Blood disorder. 2. Cancer. 3. DVT. 4. GI bleed. 5. Liver disease. 6. Respiratory disorder. 7. Lung cancer, left lower lobe 70%. 8. C difficile in the past x2. 9. She is on Xarelto for DVT and portal vein thrombosis. 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 SURGERIES: 1. Appendectomy. 2. Adenoidectomy. 3. Breast surgery. 4. Cholecystectomy. 5. Hysterectomy. 6. Tonsillectomy. 7. Bilateral mastectomy. 8. Left lower lobectomy, 70%. 9. Laser treatment at [facility] for melanoma; currently has 100 spots they are watching removed so far. 10.LASIK eye symptoms. 11.Abscess on the back. PSYCH: History of depression. SOCIAL HISTORY: Former smoker. No alcohol. No drug abuse. PHYSICAL EXAMINATION: T-max 100.3, pulse 87, respiratory rate 16 to 18, blood pressure 130s over 60s, oxygen 94% to 96% on room air. CARDIOVASCULAR: S1, S2. Lungs are clear to auscultation. Abdomen is soft, nontender. EXTREMITIES: No cyanosis, clubbing, edema. NEUROLOGIC: Alert and oriented x3. VASCULAR: Normal dorsalis pedis, posterior tibial and radial pulse. OPHTHALMOLOGIC: Pupils equal, round, reactive to light and accommodation. LABS: Hemoglobin 8.5, white count 8.7. Sodium 142, potassium 5.2, BUN 64, creatinine 3.47. ASSESSMENT: 1. Acute kidney injury. 2. Urinary tract infection. 3. Dehydration. 4. History of lung cancer. 5. History of possible skin melanoma. 6. Drug-resistant urinary tract infection. Continue with IV . Dr. Epps is consulted for long-term IV antibiotics. Will hold diuretics due to acute kidney injury. Continue to monitor. PT/OT and fluid rehydration and IV antibiotics. MMODL / IJN: [id number] /
[2017-07-23] MEDS: SODIUM CHLORIDE 0.9% 1,000 ML IV SCH (22:39)
[2017-07-24] MEDS: HYDROcodone/APAP 10-325MG 1 EACH TAB PO PRN ×5 (01:11→20:25)
[2017-07-24 07:50] LABS: Anisocytosis Slight; Basophils % (A) 0 %; Eosinophils # (A) 0.1 k/uL (0-0.7); Eosinophils % (A) 3 %; HCT 25.7 % (34.0-46.0); HGB 7.6 gm/dL (11.4-16.0); Hypochromasia Marked; Lymphocytes # (A) 0.7 k/uL (1.0-4.8); Lymphocytes % (A) 16 %; MCH 26.3 pg (25.0-35.0); MCHC 29.4 g/dL (31.0-37.0); MCV 89.5 fL (80.0-100.0); Mean Platelet Volume 7.4; Monocytes # (A) 0.4 k/uL (0-1.0); Monocytes % (A) 8 %; Neutrophils # (A) 3.2 k/uL (1.3-7.7); Neutrophils % (A) 70 %; Platelet Count 293 k/uL (150-450); RBC 2.88 m/uL (3.80-5.40); RDW 16.2 % (11.5-15.5); WBC 4.6 k/uL (3.8-10.6)
[2017-07-24] MEDS: ESCITALOPRAM 20 MG TAB PO SCH (07:57)
[2017-07-24] MEDS: APIXABAN 2.5 MG TABLET PO SCH ×2 (07:57→20:26)
[2017-07-24] MEDS: DOCUSATE 100 MG CAP PO SCH ×2 (07:57→20:26)
[2017-07-24] MEDS: ERGOCALCIFEROL 50,000 UNIT CAP PO SCH (07:57)
[2017-07-24] MEDS: LEVOTHYROXINE 50 MCG TAB PO SCH (07:57)
[2017-07-24] MEDS: CALCIUM CARBONATE 500 MG CHEWABLE PO SCH ×3 (07:58→20:26)
[2017-07-24 08:05] LABS: Albumin 2.3 g/dL (3.5-5.0); Calcium 8.4 mg/dL (8.4-10.2); Potassium 4.5 mmol/L (3.5-5.1); Total Bilirubin 0.5 mg/dL (0.2-1.3); Total Protein 4.8 g/dL (6.3-8.2)
[2017-07-24] MEDS: SODIUM CHLORIDE 0.9% 1,000 ML IV SCH ×2 (09:46→23:01)
--- NOTE | 2017-07-24 11:49 | P.NPCON ---
History of Present Illness - Reason for Consult acute renal failure - History of Present Illness Reason for consultation: Acute kidney injury History of present illness: Patient is a 66-year-old female seen in renal consultation for acute kidney injury. Her creatinine in 2014 was 1 and since then has been in the range of 1- 1.3. Creatinine was elevated at 3.47 on admission and she is currently maintained on IV hydration. Renal function has been gradually improving with creatinine down to 2.34 today. Patient presented with fever and is currently being treated for UTI. Renal ultrasound revealed 9 cm left kidney and a 10.9 cm right kidney with severe right-sided hydronephrosis. She was noted to have urinary retention and a King catheter was placed this morning. She is currently sitting up in chair. Denies chest pain or shortness of breath. Oral intake is good. She denies any prior history of kidney disease. Denies use of NSAIDs. No hematuria. Diuretics are currently held. I don't see any NSAIDs and her home medications. Hemodynamically stable. Vital signs are stable. General: The patient appeared well nourished and normally developed. HEENT: Head exam is unremarkable. Neck is without jugular venous distension. LUNGS: Lungs are clear to auscultation and percussion. Breath sounds decreased. HEART: Rate and Rhythm are regular. First and second heart sounds normal. No murmurs, rubs or gallops. ABDOMEN: Abdominal exam reveals normal bowel sounds. Non-tender and non- distended. No evidence of peritonitis. EXTREMITITES: No clubbing, cyanosis, or edema. Past Medical History Past Medical History: Blood Disorder, Cancer, Deep Vein Thrombosis (DVT), GI Bleed, Liver Disease, Respiratory Disorder Additional Past Medical History / Comment(s): 09-10-14 admitted to [facility] with c/o blood in urine and rectal bleeding, DX GI BLEED AND UTI. other hx: Breast Ca x2 ; Skin Ca squamous and melanoma; uterine ca, lung cancer LOWER LEFT LOBE 70%, c- diff- 08-13-14 snd feb 2017, on xarelto for dvt and portal vein thrombosis. 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 History of Any Multi-Drug Resistant Organisms: C-DIFF Date of last positivie culture/infection: 08/13/14 and MDRO Source:: stool Past Surgical History: Adenoidectomy, Appendectomy, Breast Surgery, Cholecystectomy, Hysterectomy, Orthopedic Surgery, Tonsillectomy Additional Past Surgical History / Comment(s): Mastectomy bilateral; Left lower lobectomy 70%; exploratory laparotomy, LASER SX AT [facility] FOR MELANOMA- CURRENTLY HAS 100 SPOTS THAT THEY ARE WATCHING REMMOVED 4 SO FAR.lasik eye sx, past "abcess on back(ecoli) pt stated they had to open a channel,removed 2 ribs and some muscle and it was open to drain to 18 months". surgical repair to Right wrist, right femur, and right hip in 2018 Additional Past Anesthesia/Blood Transfusion Reaction / Comment(s): PAST BLOOD TRANSFUSIONS- NO COMPLICATIONS Past Psychological History: Depression Additional Psychological History / Comment(s): LOW DOSE LEXAPRO, CURRENTLY NO DEPRESSION, PT LIVES AT HOME WITH HER , however currently patient resides at [facility] due to right arm and hip fractures Smoking Status: Former smoker Past Alcohol Use History: None Reported Additional Past Alcohol Use History / Comment(s): STARTED SMOKING AT AGE 13, SMOKED 1 PPD SMOKED FOR 3 YEARS THEN CUT DOWN TO ONLY SMOKING WHEN OUT WITH FRIENDS.QUIT 1978. Past Drug Use History: None Reported - Past Family History Father Additional Family Medical History / Comment(s): FROM COMPLICATIONS OF SCHRAPNEL IN BODY Mother Additional Family Medical History / Comment(s): STOMACH PROBLEMS, EMPHYSEMA Medications and Allergies Home Medications Medication Instructions Recorded Confirmed Type Spironolactone [Aldactone] 50 mg PO DAILY 09/24/14 07/22/17 History Furosemide [Lasix] 20 mg PO DAILY 04/11/15 07/22/17 History Levothyroxine Sodium [Synthroid] 50 mcg PO DAILY 07/04/17 07/22/17 History Escitalopram Oxalate [Lexapro] 20 mg PO DAILY 07/06/17 07/22/17 History Calcium Carbonate [Tums] 500 mg PO TID chew 07/09/17 07/22/17 Rx Docusate [Colace] 100 mg PO BID #60 capsule 07/09/17 07/22/17 Rx Apixaban [Eliquis] 2.5 mg PO BID 07/22/17 07/23/17 History Bisacodyl [Dulcolax] 10 mg RECTAL DAILY PRN 07/22/17 07/22/17 History Cholecalciferol [Vitamin D3] 2,000 unit PO DAILY@1700 07/22/17 07/22/17 History Ergocalciferol (Vitamin D2) 50,000 unit PO Q72H 07/22/17 07/22/17 History [Vitamin D2] HYDROcodone/APAP 10-325MG [Tranquillity 1 tab PO Q4HR PRN 07/22/17 07/22/17 History 10-325] Magnesium Hydroxide [Milk of 2,400 mg PO DAILY PRN 07/22/17 07/22/17 History Magnesia] Multivitamins, Thera [Multivitamin 1 tab PO DAILY@1700 07/22/17 07/22/17 History (formulary)] Na Phos,M-B/Na Phos,Di-Ba [Fleet 133 ml RECTAL DAILY PRN 07/22/17 07/22/17 History Adult] Allergies Allergy/AdvReac Type Severity Reaction Status Date / Time VANESSA Inhibitors Allergy Unknown Verified 07/22/17 22:34 baclofen Allergy Confusion Verified 07/22/17 22:34 cefepime HCl [From Maxipime] Allergy Rash/Hives Verified 07/22/17 22:34 cephalexin Allergy Rash/Hives Verified 07/22/17 22:34 ciprofloxacin Allergy Rash/Hives Verified 07/22/17 22:34 clindamycin Allergy Nausea & Verified 07/22/17 22:34 Vomiting erythromycin base Allergy Rash/Hives Verified 07/22/17 22:34 heparin Allergy Unknown Verified 07/22/17 22:34 lisinopril [From Zestril] Allergy Unknown Verified 07/22/17 22:34 lorazepam [From Ativan] Allergy Confusion Verified 07/22/17 22:34 metronidazole [From Flagyl] Allergy Nausea & Verified 07/22/17 22:34 Vomiting penicillin G Allergy Rash/Hives Verified 07/22/17 22:34 shellfish derived [Shellfish] Allergy Swelling Verified 07/22/17 22:34 Sulfa (Sulfonamide Allergy Swelling Verified 07/22/17 22:34 Antibiotics) steroids Allergy Unknown Uncoded 07/22/17 22:34 Physical Exam Vitals: Vital Signs Temp Pulse Resp BP Pulse Ox 07/24/17 07:55 98.3 F 81 16 154/85 94 L 07/23/17 19:49 98 F 81 16 107/64 96 07/23/17 14:05 99.1 F 92 16 137/77 96 Intake and Output 07/23/17 07/24/17 07/24/17 22:59 06:59 14:59 Intake Total 900 120 Output Total 120 700 Balance -120 200 120 Intake: Intake, IV Titration 900 Amount Ertapenem 0.5 gm In 100 Sodium Chloride 0.9% 50 ml @ 100 mls/hr IVPB HS [facility] Rx#:[id number] Sodium Chloride 0.9% 1, 800 000 ml @ 100 mls/hr IV . Q10H [facility] Rx#:[id number] Oral 120 Output: Urine 20 700 Stool 100 Other: Voiding Method Incontinent Incontinent # Bowel Movements 1 Results - Lab Results Most recent lab results Calcium 8.4 mg/dL (8.4-10.2) 07/24/17 06:23 07/24/17 06:23 07/24/17 06:23 Assessment and Plan Plan: Assessment: 1. Nonoliguric acute kidney injury mostly prerenal improving with IV hydration. Also component of urinary retention. Creatinine was 3.47 on admission and is down to 2.3 today. 2. Severe right-sided hydronephrosis. 3. UTI maintained on antibiotics. 4. Status post right femur fracture repair and right radial fracture repair. 5. Metabolic acidosis secondary to acute kidney injury and IV fluids. 6. Anemia. Rule out iron deficiency. 7. Urinary retention status post King catheter placement. Plan: Continue normal saline at 100 mL an hour. Maintain King catheter. Follow-up cultures. Recommend urology consultation for right-sided hydronephrosis. Avoid nephrotoxic agents and hypotensive episodes. Diuretics held. Avoid Fleet enemas which I see in her home medications as it can cause acute phosphate nephropathy. Check iron studies. Repeat electrolytes in the morning. Thank you for the consultation. I will continue to follow the patient with you during her hospital stay.
--- NOTE | 2017-07-24 14:56 | PN ---
PROGRESS NOTE SUBJECTIVE: A 66-year-old white female admitted with acute renal failure secondary to acute renal injury, possible dehydration, 3.47 on admission and still in 2.38 today with rehydration. Nephrology consult is pending. Being treated with IV Invanz for a drug- resistant urinary tract infection. Dr. Epps is following for this. She is status post right hip fracture, right radial fracture, right femoral fracture, status post ORIF. Vital signs stable as mentioned. CARDIOVASCULAR: S1, S2. LUNGS: Clear. PSYCH: Fair mood and affect. NEUROLOGIC: Given appropriate answers. Temp 98-99, pulse is 80s to 81, respiratory 16 to 18, blood pressure is 107 to 168/70s to 80s, O2 96% on room air. ASSESSMENT: 1. Nonoliguric acute kidney injury, most likely prerenal, possible urinary retention, took off her diuretics on admission. 2. Severe right-sided hydronephrosis,urinary tract infection, maintained on IV antibiotics. 3. Status post right femur fracture repair, right radial fracture repair. 4. Metabolic acidosis secondary to acute kidney injury. 5. Anemia. 6. Urinary retention, status post King catheter placement. Recommend continuing on IV fluids at 100 mL an hour to improve prerenal renal insufficiency. King catheter. Follow up urine cultures. They set a Urology consult for right-sided hydronephrosis. Diuretics are on hold as mentioned since admission. They said avoid Fleet enemas due to possible acute phosphate nephropathy. Check iron studies. Continue current IV fluids. Check electrolytes in the morning. MMODL / IJN: [id number] /
[2017-07-24] MEDS ORDERED: BARIUM SULFATE 450 ML ORAL.SUSP BOTTLE PO PRN (16:34)
--- NOTE | 2017-07-24 16:34 | P.GSCN ---
History of Present Illness Consult date: 07/24/17 Reason for Consult: Hydronephrosis right History of present illness: The patient is a pleasant 66-year-old female who had been in a rehab facility because of a recent fracture to her right wrist hip and femur. She fell out of bed and required surgery to correct this problem. Apparently she's been having problems in the emergency room with increasing incontinence and signs of urinary tract infection. She also apparently had been having blood monitored at the intermediate and her renal function had deteriorated and she is brought in the hospital. She is found to be in urine retention catheterized for 500 mL 2 now she has an indwelling catheter. The patient was seen by Dr. Felipe. A renal ultrasound was obtained. She has right-sided hydronephrosis. I reviewed her x-rays and this appears to be somewhat chronic. She had a computed tomography scan 3 years ago that did not show any hydronephrosis. The patient historically has had uterine cancer treated with hysterectomy as well as postoperative external and internal radiation. She has also had an lobectomy for lung cancer skin resection for melanoma as well as squamous cell carcinoma she has had bilateral breast cancer. She is asymptomatic. She does have a urine infection and indwelling catheter. Creatinine has come down somewhat since that is happened. She has no urinary tract symptoms. She does admit to urine retention in the past after previous surgery. She is cared for by Dr. Rader [facility] but has not seen him in some time. Review of Systems - Constitutional Reports anorexia, Reports lethargy - Breasts Breasts Comment(s): Breast cancer - Respiratory Respiratory Comment(s): Lung cancer - Genitourinary Genitourinary: Reports as per HPI - Musculoskeletal Reports as per HPI - Integumentary Integumentary Comment(s): Skin cancer, melanoma and squamous cell carcinoma Past Medical History Past Medical History: Blood Disorder, Cancer, Deep Vein Thrombosis (DVT), GI Bleed, Liver Disease, Respiratory Disorder Additional Past Medical History / Comment(s): 09-10-14 admitted to [facility] with c/o blood in urine and rectal bleeding, DX GI BLEED AND UTI. other hx: Breast Ca x2 ; Skin Ca squamous and melanoma; uterine ca, lung cancer LOWER LEFT LOBE 70%, c- diff- 6-5-15 snd feb 2017, on xarelto for dvt and portal vein thrombosis. 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 History of Any Multi-Drug Resistant Organisms: C-DIFF Year Discovered:: 08/13/14 and MDRO Source:: stool Past Surgical History: Adenoidectomy, Appendectomy, Breast Surgery, Cholecystectomy, Hysterectomy, Orthopedic Surgery, Tonsillectomy Additional Past Surgical History / Comment(s): Mastectomy bilateral; Left lower lobectomy 70%; exploratory laparotomy, LASER SX AT OF FOR MELANOMA- CURRENTLY HAS 100 SPOTS THAT THEY ARE WATCHING REMMOVED 4 SO FAR.lasik eye sx, past "abcess on back(ecoli) pt stated they had to open a channel,removed 2 ribs and some muscle and it was open to drain to 18 months". surgical repair to Right wrist, right femur, and right hip in 2018 Additional Past Anesthesia/Blood Transfusion Reaction / Comm: PAST BLOOD TRANSFUSIONS- NO COMPLICATIONS Past Psychological History: Depression Additional Psychological History / Comment(s): LOW DOSE LEXAPRO, CURRENTLY NO DEPRESSION, PT LIVES AT HOME WITH HER , however currently patient resides at [facility] due to right arm and hip fractures Smoking Status: Former smoker Past Alcohol Use History: None Reported Additional Past Alcohol Use History / Comment(s): STARTED SMOKING AT AGE 13, SMOKED 1 PPD SMOKED FOR 3 YEARS THEN CUT DOWN TO ONLY SMOKING WHEN OUT WITH FRIENDS.QUIT 1978. Past Drug Use History: None Reported - Past Family History Father Additional Family Medical History / Comment(s): FROM COMPLICATIONS OF SCHRAPNEL IN BODY Mother Additional Family Medical History / Comment(s): STOMACH PROBLEMS, EMPHYSEMA Medications and Allergies Home Medications Medication Instructions Recorded Confirmed Type Spironolactone [Aldactone] 50 mg PO DAILY 09/24/14 07/22/17 History Furosemide [Lasix] 20 mg PO DAILY 04/11/15 07/22/17 History Levothyroxine Sodium [Synthroid] 50 mcg PO DAILY 07/04/17 07/22/17 History Escitalopram Oxalate [Lexapro] 20 mg PO DAILY 07/06/17 07/22/17 History Calcium Carbonate [Tums] 500 mg PO TID chew 07/09/17 07/22/17 Rx Docusate [Colace] 100 mg PO BID #60 capsule 07/09/17 07/22/17 Rx Apixaban [Eliquis] 2.5 mg PO BID 07/22/17 07/23/17 History Bisacodyl [Dulcolax] 10 mg RECTAL DAILY PRN 07/22/17 07/22/17 History Cholecalciferol [Vitamin D3] 2,000 unit PO DAILY@1700 07/22/17 07/22/17 History Ergocalciferol (Vitamin D2) 50,000 unit PO Q72H 07/22/17 07/22/17 History [Vitamin D2] HYDROcodone/APAP 10-325MG [[place] 1 tab PO Q4HR PRN 07/22/17 07/22/17 History 10-325] Magnesium Hydroxide [Milk of 2,400 mg PO DAILY PRN 07/22/17 07/22/17 History Magnesia] Multivitamins, Thera [Multivitamin 1 tab PO DAILY@1700 07/22/17 07/22/17 History (formulary)] Na Phos,M-B/Na Phos,Di-Ba [Fleet 133 ml RECTAL DAILY PRN 07/22/17 07/22/17 History Adult] Allergies Allergy/AdvReac Type Severity Reaction Status Date / Time VANESSA Inhibitors Allergy Unknown Verified 07/22/17 22:34 baclofen Allergy Confusion Verified 07/22/17 22:34 cefepime HCl [From Maxipime] Allergy Rash/Hives Verified 07/22/17 22:34 cephalexin Allergy Rash/Hives Verified 07/22/17 22:34 ciprofloxacin Allergy Rash/Hives Verified 07/22/17 22:34 clindamycin Allergy Nausea & Verified 07/22/17 22:34 Vomiting erythromycin base Allergy Rash/Hives Verified 07/22/17 22:34 heparin Allergy Unknown Verified 07/22/17 22:34 lisinopril [From Zestril] Allergy Unknown Verified 07/22/17 22:34 lorazepam [From Ativan] Allergy Confusion Verified 07/22/17 22:34 metronidazole [From Flagyl] Allergy Nausea & Verified 07/22/17 22:34 Vomiting penicillin G Allergy Rash/Hives Verified 07/22/17 22:34 shellfish derived [Shellfish] Allergy Swelling Verified 07/22/17 22:34 Sulfa (Sulfonamide Allergy Swelling Verified 07/22/17 22:34 Antibiotics) steroids Allergy Unknown Uncoded 07/22/17 22:34 Surgical - Exam Vital Signs Temp Pulse Resp BP Pulse Ox 100.3 F H 87 18 137/63 96 07/22/17 22:05 07/22/17 22:05 07/22/17 22:05 07/22/17 22:05 07/22/17 22:05 - General well developed, well nourished, no distress - Eyes PERRL - ENT no hearing loss - Neck no masses - Respiratory normal expansion, normal respiratory effort - Cardiovascular Rhythm: regular - Abdomen Abdomen: soft, non tender - Genitourinary Indwelling King catheter with infected looking urine - Neurologic normal coordination, normal sensation - Musculoskeletal normal posture - Psychiatric oriented to time, oriented to person, oriented to place, speech is normal, memory intact Results - Labs 07/24/17 06:23 07/24/17 06:23 Abnormal Lab Results - Last 24 Hours (Table) 07/24/17 07/24/17 Range/Units 06:23 06:23 RBC 2.88 L (3.80-5.40) m/uL Hgb 7.6 L (11.4-16.0) gm/dL Hct 25.7 L (34.0-46.0) % MCHC 29.4 L (31.0-37.0) g/dL RDW 16.2 H (11.5-15.5) % Lymphocytes # 0.7 L (1.0-4.8) k/uL Chloride 112 H (98-107) mmol/L Carbon Dioxide 20 L (22-30) mmol/L BUN 48 H (7-17) mg/dL Creatinine 2.34 H (0.52-1.04) mg/dL Alkaline Phosphatase 236 H (38-126) U/L Total Protein 4.8 L (6.3-8.2) g/dL Albumin 2.3 L (3.5-5.0) g/dL Microbiology - Last 24 Hours (Table) 07/22/17 22:42 Urine Culture - Preliminary Urine,Catheterized Gram Neg Bacilli 07/22/17 22:27 Blood Culture - Preliminary Blood No Growth after 24 hours Diabetes panel 07/24/17 Range/Units 06:23 Sodium 145 (137-145) mmol/L Potassium 4.5 (3.5-5.1) mmol/L Chloride 112 H (98-107) mmol/L Carbon Dioxide 20 L (22-30) mmol/L BUN 48 H (7-17) mg/dL Creatinine 2.34 H (0.52-1.04) mg/dL Glucose 74 (74-99) mg/dL Calcium 8.4 (8.4-10.2) mg/dL AST 28 (14-36) U/L ALT 32 (9-52) U/L Alkaline Phosphatase 236 H (38-126) U/L Total Protein 4.8 L (6.3-8.2) g/dL Albumin 2.3 L (3.5-5.0) g/dL Calcium panel 07/24/17 Range/Units 06:23 Calcium 8.4 (8.4-10.2) mg/dL Albumin 2.3 L (3.5-5.0) g/dL Pituitary panel 07/24/17 Range/Units 06:23 Sodium 145 (137-145) mmol/L Potassium 4.5 (3.5-5.1) mmol/L Chloride 112 H (98-107) mmol/L Carbon Dioxide 20 L (22-30) mmol/L BUN 48 H (7-17) mg/dL Creatinine 2.34 H (0.52-1.04) mg/dL Glucose 74 (74-99) mg/dL Calcium 8.4 (8.4-10.2) mg/dL Adrenal panel 07/24/17 Range/Units 06:23 Sodium 145 (137-145) mmol/L Potassium 4.5 (3.5-5.1) mmol/L Chloride 112 H (98-107) mmol/L Carbon Dioxide 20 L (22-30) mmol/L BUN 48 H (7-17) mg/dL Creatinine 2.34 H (0.52-1.04) mg/dL Glucose 74 (74-99) mg/dL Calcium 8.4 (8.4-10.2) mg/dL Total Bilirubin 0.5 (0.2-1.3) mg/dL AST 28 (14-36) U/L ALT 32 (9-52) U/L Alkaline Phosphatase 236 H (38-126) U/L Total Protein 4.8 L (6.3-8.2) g/dL Albumin 2.3 L (3.5-5.0) g/dL - Imaging CT scan - abdomen: report reviewed, image reviewed CT scan - pelvis: report reviewed, image reviewed US - kidney/bladder: report reviewed, image reviewed Assessment and Plan Assessment: Impression: Acute urinary tract infection with incomplete bladder emptying. Acute kidney injury secondary to infection aggravated by hydronephrosis. Right sided hydronephrosis and new since x-ray done in 2014. History of multiple cancers including hysterectomy and radiation to the pelvis Recommendations: I will obtain a computed tomography scan of the abdomen without contrast to see if I can see location of the obstruction as well as possibly the cause. It would be my impression that this is postsurgical and radiation therapy induced. This is not an uncommon finding with this type of treatment for cancer uterus. At this point in time I do not think the upper tract appears to be infected based on no fever or white count. Follow this patient with you. Time with Patient: Greater than 30
[2017-07-24] MEDS: CHOLECALCIFEROL 1,000 UNIT TAB PO SCH (16:39)
[2017-07-24] MEDS: MULTIVITAMINS, THERA 1 EACH TAB PO SCH (16:39)
[2017-07-24 16:54] LABS: Iron Saturation 11.21 (12.00-45.00)
[2017-07-24] MEDS: IOPAMIDOL-300 CONTRAST 30 ML VIAL (ORAL USE) PO PRN ×2 (17:05→17:59)
--- NOTE | 2017-07-24 19:05 | CT ---
EXAMINATION TYPE: CT abdomen pelvis wo con DATE OF EXAM: 07/24/2017 COMPARISON: 09/30/2014 HISTORY: Known pelvic fracture. Abnormal US CT DLP: 900.3 mGycm Examination of the solid and hollow viscera is limited given the lack of contrast. FINDINGS: LUNG BASES: Irregular pleural thickening at the left costophrenic sulcus. Persistent rounded density right lower lobe. Small right-sided pleural effusion persists. Right mastectomy changes. LIVER/GB: Cholecystectomy clips are in place. No space-occupying hepatic lesion. PANCREAS: No pancreatic mass identified. No inflammatory process seen. SPLEEN: No evidence for splenomegaly. No intrasplenic lesions seen. ADRENALS: No adrenal nodules identified. No evidence for thickening. KIDNEYS: The left kidney is diminutive in size. 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 Bilatera l hydronephrosis moderate on the right and mild on the left. No obstructing calculus identified with certainty. King catheter is within the urinary bladder which appears to be decompressed. No evidence for renal mass. BOWEL: Appendix has a normal appearance. Wall thickening of the right hemicolon is noted which is non specific. No evidence of bowel obstruction. No inflammatory process. No abscess or free air. Lymph nodes: No evidence for adenopathy greater than 1 cm. Abdominal aorta: Atheromatous changes seen. No evidence for aneurysm. Genital organs: No significant abnormality. Other: Mild ascites noted greatest within the pelvis. IMPRESSION: 1. Irregular pleural thickening left lower lobe posteriorly may be postoperative in nature. Correlate clinically. Underlying neoplasm not excluded. 2. Wall thickening right hemicolon. Underlying nonspecific colitis is not excluded. 3. Bilateral hydronephrosis right greater than left without obstructing calculus. King balloon pat ter is within a decompressed urinary bladder. 4. Ascites
[2017-07-24] MEDS: ERTAPENEM 0.5 GM in SODIUM CHLORIDE 0.9% 50 ML IVPB SCH (20:25)
--- NOTE | 2017-07-24 21:59 | PN ---
PROGRESS NOTE DATE OF SERVICE: 07/24/2017 REASON FOR FOLLOWUP: 1. Urinary tract infection. 2. Multiple antibiotic allergies. INTERVAL HISTORY: The patient is afebrile. The patient did have a problem with urine retention yesterday; hence a King catheter has been placed. Patient has been urinating okay. Urine is significantly cloudy. Patient says she is feeling slightly better, though. Denies having any chest pain, shortness of breath or cough. No abdominal pain. No diarrhea. PHYSICAL EXAMINATION: Blood pressure is 173/83 with a pulse of 80, temperature 98.2. She is 95% on room air. General description is an elderly female lying in bed in no distress. RESPIRATORY SYSTEM: Unlabored breathing. Clear to auscultation anteriorly. HEART: S1, S2. Regular rate and rhythm. ABDOMEN: Soft. No tenderness. EXTREMITIES: No edema of feet. LABS: Hemoglobin 7.6, white count 4.6, BUN of 14, creatinine 2.34. DIAGNOSTIC IMPRESSION AND PLAN: Patient with Gram-negative urinary tract infection cloudy urine with urine retention requiring King catheter placement. Patient at this time will continue Invanz because of her MULTIPLE ANTIBIOTIC ALLERGIES. Will wait for the urine culture to finalize to determine her discharge antibiotics. The patient would get a midline placement for outpatient IV antibiotic therapy. Continue with supportive care. ALEXANDERL / IJN: [id number] /
[2017-07-25] MEDS: SODIUM CHLORIDE 0.9% 1,000 ML IV SCH ×5 (05:33→16:47)
[2017-07-25] MEDS: HYDROcodone/APAP 10-325MG 1 EACH TAB PO PRN ×5 (05:54→23:43)
--- NOTE | 2017-07-25 06:47 | P.PN ---
Subjective Progress Note Date: 07/25/17 The patient's computed tomography scan shows bilateral hydroureteronephrosis. This goes down into the pelvis. This is consistent with my thought of surgical scar and radiation induced bilateral hydronephrosis. In essence the pelvis is frozen from the previous uterine cancer treatment. This is not an uncommon finding. This is a very difficult situation as there are no true answers shy of major reconstruction. Question is whether stents would be in order. I will discuss this with Dr. Felipe. Objective - Vital Signs Vital signs: Vital Signs Temp 96.8 F L 07/25/17 01:07 Pulse 82 07/25/17 01:07 Resp 16 07/25/17 01:07 BP 135/61 07/25/17 01:07 Pulse Ox 94 L 07/25/17 01:07 Intake & Output 07/24/17 07/24/17 07/25/17 06:59 18:59 06:59 Intake Total 257 776 5091 Output Total 417 012 9480 Balance 80 -143 0 Intake: Intake, IV Titration 889 341 7628 Amount Ertapenem 0.5 gm In 100 400 100 Sodium Chloride 0.9% 50 ml @ 100 mls/hr IVPB HS [facility] Rx#:[id number] Sodium Chloride 0.9% 1, 800 1100 000 ml @ 100 mls/hr IV . Q10H [facility] Rx#:[id number] Oral 357 Output: Urine 562 986 7175 Straight 900 Stool 100 Other: Voiding Method Incontinent Indwelling Catheter Indwelling Catheter # Bowel Movements 1 1 - Labs CBC & Chem 7: 07/24/17 06:23 07/24/17 06:23 Labs: Abnormal Lab Results - Last 24 Hours (Table) 07/24/17 07/24/17 Range/Units 06:23 06:23 RBC 2.88 L (3.80-5.40) m/uL Hgb 7.6 L (11.4-16.0) gm/dL Hct 25.7 L (34.0-46.0) % MCHC 29.4 L (31.0-37.0) g/dL RDW 16.2 H (11.5-15.5) % Lymphocytes # 0.7 L (1.0-4.8) k/uL Chloride 112 H (98-107) mmol/L Carbon Dioxide 20 L (22-30) mmol/L BUN 48 H (7-17) mg/dL Creatinine 2.34 H (0.52-1.04) mg/dL Alkaline Phosphatase 236 H (38-126) U/L Total Protein 4.8 L (6.3-8.2) g/dL Albumin 2.3 L (3.5-5.0) g/dL Microbiology - Last 24 Hours (Table) 07/22/17 22:27 Blood Culture - Preliminary Blood No Growth after 48 hours 07/22/17 22:42 Urine Culture - Preliminary Urine,Catheterized Gram Neg Bacilli
[2017-07-25 08:47] LABS: Albumin 2.2 g/dL (3.5-5.0); Calcium 8.3 mg/dL (8.4-10.2); Potassium 4.7 mmol/L (3.5-5.1); Total Bilirubin 0.4 mg/dL (0.2-1.3); Total Protein 4.8 g/dL (6.3-8.2)
[2017-07-25 10:29] LABS: Anisocytosis Slight; Basophils % (A) 1 %; Eosinophils # (A) 0.1 k/uL (0-0.7); Eosinophils % (A) 2 %; HCT 29.9 % (34.0-46.0); Hypochromasia Marked; Lymphocytes # (A) 1.5 k/uL (1.0-4.8); Lymphocytes % (A) 26 %; MCH 26.9 pg (25.0-35.0); MCHC 30.2 g/dL (31.0-37.0); MCV 88.9 fL (80.0-100.0); Mean Platelet Volume 7.1; Monocytes # (A) 0.3 k/uL (0-1.0); Monocytes % (A) 5 %; Neutrophils # (A) 3.6 k/uL (1.3-7.7); Neutrophils % (A) 63 %; Platelet Count 397 k/uL (150-450); RBC 3.36 m/uL (3.80-5.40); RDW 16.1 % (11.5-15.5); WBC 5.7 k/uL (3.8-10.6)
[2017-07-25] MEDS: APIXABAN 2.5 MG TABLET PO SCH ×2 (11:05→18:38)
[2017-07-25] MEDS: LEVOTHYROXINE 50 MCG TAB PO SCH (11:06)
[2017-07-25] MEDS: DOCUSATE 100 MG CAP PO SCH ×2 (11:07→20:27)
[2017-07-25] MEDS: CALCIUM CARBONATE 500 MG CHEWABLE PO SCH ×3 (11:07→20:27)
[2017-07-25] MEDS: ESCITALOPRAM 20 MG TAB PO SCH (11:08)
--- NOTE | 2017-07-25 12:16 | P.PN ---
Subjective Patient is seen in follow for acute kidney injury. Creatinine was 3.47 on admission and is down to 1.71 today. She is currently sitting up in chair. Denies chest pain or shortness of breath. She has a King catheter in place for urinary retention. She is also being seen by urology for severe right- sided hydronephrosis. Oral intake is good. No vomiting or diarrhea. Vital signs are stable. General: The patient appeared well nourished and normally developed. HEENT: Head exam is unremarkable. Neck is without jugular venous distension. LUNGS: Lungs are clear to auscultation and percussion. Breath sounds decreased. HEART: Rate and Rhythm are regular. First and second heart sounds normal. No murmurs, rubs or gallops. ABDOMEN: Abdominal exam reveals normal bowel sounds. Non-tender and non- distended. No evidence of peritonitis. EXTREMITITES: No clubbing, cyanosis, or edema. Objective - Vital Signs Vital signs: Vital Signs Temp 98.7 F 07/25/17 07:20 Pulse 85 07/25/17 07:20 Resp 16 07/25/17 07:20 BP 156/70 07/25/17 07:20 Pulse Ox 94 L 07/25/17 07:20 Intake & Output 07/24/17 07/25/17 07/25/17 18:59 06:59 18:59 Intake Total 757 1200 Output Total 900 1200 800 Balance -143 0 -800 Intake: Intake, IV Titration 400 1200 Amount Ertapenem 0.5 gm In 400 100 Sodium Chloride 0.9% 50 ml @ 100 mls/hr IVPB HS [facility] Rx#:[id number] Sodium Chloride 0.9% 1, 1100 000 ml @ 100 mls/hr IV . Q10H [facility] Rx#:[id number] Oral 357 Output: Urine 900 1200 800 Straight 900 Other: Voiding Method Indwelling Catheter Indwelling Catheter Indwelling Catheter # Bowel Movements 1 1 - Labs CBC & Chem 7: 07/25/17 09:44 07/25/17 07:01 Labs: Abnormal Lab Results - Last 24 Hours (Table) 07/24/17 07/25/17 07/25/17 Range/Units 06:23 07:01 09:44 RBC 3.36 L (3.80-5.40) m/uL Hgb 9.0 L (11.4-16.0) gm/dL Hct 29.9 L (34.0-46.0) % MCHC 30.2 L (31.0-37.0) g/dL RDW 16.1 H (11.5-15.5) % Chloride 113 H (98-107) mmol/L Carbon Dioxide 18 L (22-30) mmol/L BUN 37 H (7-17) mg/dL Creatinine 1.71 H (0.52-1.04) mg/dL Glucose 71 L (74-99) mg/dL Calcium 8.3 L (8.4-10.2) mg/dL Iron 25 L (50-170) ug/dL TIBC 223 L (228-460) ug/dL Iron Saturation 11.21 L (12.00-45.00) AST 39 H (14-36) U/L Alkaline Phosphatase 218 H (38-126) U/L Total Protein 4.8 L (6.3-8.2) g/dL Albumin 2.2 L (3.5-5.0) g/dL Microbiology - Last 24 Hours (Table) 07/22/17 22:27 Blood Culture - Preliminary Blood No Growth after 48 hours 07/22/17 22:42 Urine Culture - Preliminary Urine,Catheterized Gram Neg Bacilli Assessment and Plan Plan: Assessment: 1. Nonoliguric acute kidney injury mostly prerenal improving with IV hydration. Also component of urinary retention. Creatinine was 3.47 on admission and is down to 1.7 today. 2. Bilateral hydronephrosis. Urology following. 3. UTI maintained on antibiotics. Urine culture positive for gram-negative bacilli. 4. Status post right femur fracture repair and right radial fracture repair. 5. Metabolic acidosis secondary to acute kidney injury and IV fluids. 6. Anemia. Iron deficiency present. 7. Urinary retention status post King catheter placement. Plan: I will decrease rate of normal saline to 70 mL an hour. Maintain King catheter. Follow-up cultures. Avoid nephrotoxic agents and hypotensive episodes. Diuretics held. Avoid Fleet enemas which I see in her home medications as it can cause acute phosphate nephropathy. Ferrlecit 125 mg IV daily for 3 days. First dose today. Add oral sodium bicarbonate 650 mg twice daily. Repeat electrolytes in the morning.
[2017-07-25] MEDS: SODIUM FERRIC GLUCONAT-SUCROSE 125 MG in SODIUM CHLORIDE 0.9% 100 ML IVPB SCH (13:17)
[2017-07-25] MEDS: SODIUM BICARBONATE TAB 650 MG TAB PO SCH ×2 (13:17→20:27)
[2017-07-25] MEDS: CHOLECALCIFEROL 1,000 UNIT TAB PO SCH (16:44)
[2017-07-25] MEDS: MULTIVITAMINS, THERA 1 EACH TAB PO SCH (16:44)
[2017-07-25] MEDS ORDERED: ERTAPENEM 1 GM in SODIUM CHLORIDE 0.9% 50 ML IVPB SCH (21:00)
--- NOTE | 2017-07-25 21:06 | PN ---
PROGRESS NOTE DATE OF SERVICE: 07/25/2017. REASON FOR FOLLOWUP: 1. Complicated urinary tract infection. 2. Multiple antibiotic allergies. INTERVAL HISTORY: The patient is afebrile. She is breathing comfortably. She denies having any chest pain or cough. No abdominal pain. No nausea, vomiting or any diarrhea. EXAMINATION: Blood pressure 134/56, pulse of 86, temperature 98.6. She is 98% on room air. General description is a middle-aged female lying in bed in no distress. RESPIRATORY SYSTEM: Unlabored breathing. Clear to auscultation anteriorly. HEART: S1, S2. Regular rate and rhythm. ABDOMEN: Soft. No tenderness. LABS: Hemoglobin 9, white count 5.7. BUN of 37 creatinine 1.71. DIAGNOSTIC IMPRESSION AND PLAN: Patient with a gram-negative urinary tract infection complicated with evidence of left hydronephrosis. Currently on Invanz. Waiting for the culture and sensitivity to finalize to determine her discharge antibiotic. Continue with supportive care. MMODL / IJN: [id number] /
--- NOTE | 2017-07-25 23:33 | PN ---
PROGRESS NOTE SUBJECTIVE: This is a white female who has ureteral stenosis. Seen by Urology. Urology note is noted. She had an ultrasound-guided central venous access today. Seen by Dr. Epps from Infectious Disease today. He says multiple antibiotic allergies complicate her urinary tract infection. Blood pressure 130s over 50s, temperature 98.6, pulse 86, 98% on room air. Unlabored breathing. HEART: Regular rate, rhythm. ABDOMEN: Soft, nontender. White count is 5.7, creatinine 1.7, BUN 31. Gram-negative urinary tract infection. Left hydronephrosis. Continue on Invanz. Await culture and sensitivity to finalize her discharge antibiotic. As soon as that is done, we will be able to send her back to rehab center. MMEUGENIOL / IJN: [id number] /
[2017-07-26] MEDS: HYDROcodone/APAP 10-325MG 1 EACH TAB PO PRN ×4 (05:23→20:16)
[2017-07-26] MEDS: LEVOTHYROXINE 50 MCG TAB PO SCH (05:29)
[2017-07-26 07:54] LABS: Anisocytosis Slight; Basophils % (A) 0 %; Eosinophils # (A) 0.2 k/uL (0-0.7); Eosinophils % (A) 5 %; HCT 26.3 % (34.0-46.0); HGB 7.9 gm/dL (11.4-16.0); Hypochromasia Marked; Lymphocytes # (A) 0.8 k/uL (1.0-4.8); Lymphocytes % (A) 20 %; MCV 89.9 fL (80.0-100.0); Mean Platelet Volume 7.3; Monocytes # (A) 0.3 k/uL (0-1.0); Monocytes % (A) 8 %; Neutrophils # (A) 2.5 k/uL (1.3-7.7); Neutrophils % (A) 64 %; Platelet Count 364 k/uL (150-450); RBC 2.92 m/uL (3.80-5.40); RDW 16.7 % (11.5-15.5); WBC 3.9 k/uL (3.8-10.6)
[2017-07-26 08:08] LABS: Albumin 2.3 g/dL (3.5-5.0); Calcium 8.4 mg/dL (8.4-10.2); Potassium 4.2 mmol/L (3.5-5.1); Total Bilirubin 0.3 mg/dL (0.2-1.3)
[2017-07-26] MEDS ORDERED: IV FLUID CONTINUATION 1,000 ML IV ONE (09:10)
[2017-07-26] MEDS ORDERED: fentaNYL (PF) 50 MCG/ML 2 ML AMP IV PRN (09:34)
[2017-07-26] MEDS ORDERED: DEXAMETHASONE SOD PHOSPHATE 10 MG/ML 1 ML VIAL IV ONE (09:34)
[2017-07-26] MEDS ORDERED: MIDAZOLAM 2 MG/2 ML VIAL IV PRN (09:34)
[2017-07-26] MEDS ORDERED: ONDANSETRON 4 MG/2 ML VIAL IVP ONE (09:34)
[2017-07-26] MEDS: SODIUM FERRIC GLUCONAT-SUCROSE 125 MG in SODIUM CHLORIDE 0.9% 100 ML IVPB SCH ×2 (09:37→09:54)
[2017-07-26] MEDS ORDERED: IOPAMIDOL-370 50ML BTL MISCELLANE ONE (09:53)
[2017-07-26] MEDS ORDERED: MIDAZOLAM 2 MG/2 ML VIAL ONE (09:54)
[2017-07-26] MEDS ORDERED: LIDOCAINE 1% INJ 10MG/ML (20 ML MDV) ONE (09:54)
[2017-07-26] MEDS ORDERED: ePHEDrine SULFATE/0.9% NACL/PF 50 MG/5 ML SYRINGE IV ONE (09:54)
[2017-07-26] MEDS ORDERED: fentaNYL (PF) 50 MCG/ML 2 ML AMP ONE (09:54)
[2017-07-26] MEDS ORDERED: PROPOFOL 10 MG/ML 20 ML VIAL IV ONE (09:54)
[2017-07-26] MEDS ORDERED: SUCCINYLCHOLINE CHLORIDE 100 MG/5 ML SYR IV ONE (09:54)
--- NOTE | 2017-07-26 10:44 | P.OP ---
Date of Procedure: 07/26/17 Preoperative Diagnosis: Bilateral hydronephrosis, renal failure Postoperative Diagnosis: Same secondary to distal ureteral obstruction Procedure(s) Performed: Cystoscopy, bilateral retrograde pyelograms, placement of bilateral 6 x 24 double-J catheter Anesthesia: LENA Surgeon: Dorian Contreras Estimated Blood Loss (ml): 0 Pathology: none sent Condition: stable Disposition: PACU Indications for Procedure: The patient is a 66-year-old female who has a history of multiple cancers including the uterine cancer treated with hysterectomy and radiation therapy. Over the last 3 years she has developed bilateral hydronephrosis. She came in the hospital renal failure which was partially reversed with King catheter and she was in urine retention however renal ultrasound showed bilateral hydronephrosis that persisted. Therefore she come for retrograde pyelograms Description of Procedure: The patient is brought to the operating suite. She is given a general anesthesia. She's placed lithotomy position with sterile prep and drape. Cystoscopy Foroblique lens and 22-[place] sheath identifies catheter edema but otherwise no evidence of tumor or stone. The trigone shows that the ureteral orifices show some edema. 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 With a cone-tip catheters a right retrograde pyelograms easy. There is a distinct J hooking and scarring of the distal ureter. It is hydronephrotic proximal to this at the level intramural tunnel. I then pass an 035 wire through the ureter up into the renal pelvis and over this is passed a 6 x 24 double-J catheter that coils in the renal pelvis and in the bladder Left retrograde pyelogram is not easy but I eventually finding the orifice and perform a retrograde pyelogram. The ureters the same J-hook very narrowed in the intramural tunnel with proximal hydroureteronephrosis at the level of the bladder as the ureter enters. It requires the ureteroscope to get the will 35 wire through the orifice up into the kidney. I then backloaded the wire onto the cystoscope and passed another 6 x 24 double-J catheter that coils in the renal pelvis and the bladder King catheters placed the patient's awake and returned recovery room good condition Impression bilateral distal ureteral strictures probably a combination of urinary retention the J hooking aggravated by previous radiation therapy and surgery. We'll leave the catheter is in for now and then the patient's urine retention will need to be dealt with as she begins to ambulate.
--- NOTE | 2017-07-26 11:25 | DS ---
DISCHARGE SUMMARY DISCHARGE MEDICATIONS: 1. 1 gram IV piggyback q.12 hours for 12 days. 2. Tylenol 650 mg q.6 hours p.r.n. for pain. 3. Sodium bicarbonate 650 b.i.d. 4. Synthroid 50 mcg daily. 5. Lexapro 20 mg daily. 6. Colace 100 mg b.i.d. 7. Tums 500 mg t.i.d. 8. Multivitamin daily. 9. [place] 10/325 one every 4 hours p.r.n. for pain. 10.Vitamin D3, 2000 units daily. 11.Eliquis 2.5 mg . CONDITION: Stable. PROGNOSIS: Guarded. Ambulate as tolerated. Follow up with Dr. Collado at the long term. HOSPITAL COURSE OF EVENTS: This is a white female, admitted to the hospital with a drug resistant UTI and acute tubular necrosis from acute renal injury secondary to dehydration secondary to UTI and sepsis secondary to UTI. The patient was given IV antibiotics for multiple days, IV fluids. Diuretics were discontinued. Creatinine continued improved to 1.47 on discharge. She was given IV sucrose for iron infusion due to anemia. Patient was stabilized and seen for hydronephrosis by Urology. Hydronephrosis was thought to be secondary to prior chemotherapy that was done on this patient. Patient stabilized and will be sent home in stable condition over at the rehab center. Continue from her rehab due to her right hip fracture surgery with total hip replacement, total hip ORIF fracture replacement and right radial fracture. PT, OT and continue with IV antibiotics for another 12 days of mg q.[address] Miles Collado in long term. MMODL / IJN: [id number] /
[2017-07-26] MEDS: AZTREONAM 1 GM in SODIUM CHLORIDE 0.9% 50 ML IVPB SCH ×2 (11:50→20:17)
--- NOTE | 2017-07-26 12:42 | P.PN ---
Subjective Patient is seen in follow for acute kidney injury. Creatinine was 3.47 on admission and is down to 1.43 today. She is currently resting in bed. Denies chest pain or shortness of breath. She has a King catheter in place for urinary retention. She underwent bilateral double-J catheter placement by urology this morning for bilateral hydronephrosis. Oral intake is good. No vomiting or diarrhea. Vital signs are stable. General: The patient appeared well nourished and normally developed. HEENT: Head exam is unremarkable. Neck is without jugular venous distension. LUNGS: Lungs are clear to auscultation and percussion. Breath sounds decreased. HEART: Rate and Rhythm are regular. First and second heart sounds normal. No murmurs, rubs or gallops. ABDOMEN: Abdominal exam reveals normal bowel sounds. Non-tender and non- distended. No evidence of peritonitis. EXTREMITITES: No clubbing, cyanosis, or edema. Objective - Vital Signs Vital signs: Vital Signs Temp 98.2 F 07/26/17 10:45 Pulse 88 07/26/17 11:15 Resp 18 07/26/17 11:15 BP 150/70 07/26/17 11:15 Pulse Ox 95 07/26/17 11:15 Intake & Output 07/25/17 07/26/17 07/26/17 18:59 06:59 18:59 Intake Total 1230 510.0 Output Total 1200 1200 175 Balance -1200 30 335.0 Intake: IV 510.0 Intake, IV Titration 140 Amount Sodium Chloride 0.9% 1, 140 000 ml @ 70 mls/hr IV . [id number] [facility] Rx#:[id number] Oral 1090 Output: Urine 1200 1200 Pleural Fluid 175 Other: Voiding Method Indwelling Catheter Indwelling Catheter # Bowel Movements 2 - Labs CBC & Chem 7: 07/26/17 07:25 07/26/17 07:25 Labs: Abnormal Lab Results - Last 24 Hours (Table) 07/26/17 07/26/17 Range/Units 07:25 07:25 RBC 2.92 L (3.80-5.40) m/uL Hgb 7.9 L (11.4-16.0) gm/dL Hct 26.3 L (34.0-46.0) % MCHC 30.0 L (31.0-37.0) g/dL RDW 16.7 H (11.5-15.5) % Lymphocytes # 0.8 L (1.0-4.8) k/uL Chloride 114 H (98-107) mmol/L Carbon Dioxide 20 L (22-30) mmol/L BUN 28 H (7-17) mg/dL Creatinine 1.43 H (0.52-1.04) mg/dL Alkaline Phosphatase 229 H (38-126) U/L Total Protein 5.0 L (6.3-8.2) g/dL Albumin 2.3 L (3.5-5.0) g/dL Microbiology - Last 24 Hours (Table) 07/22/17 22:42 Urine Culture - Final Urine,Catheterized Escherichia coli 07/22/17 22:27 Blood Culture - Preliminary Blood No Growth after 72 hours Assessment and Plan Plan: Assessment: 1. Nonoliguric acute kidney injury mostly prerenal improving with IV hydration. Also component of urinary retention. Creatinine was 3.47 on admission and is down to 1.43 today. 2. Bilateral hydronephrosis status post bilateral double-J catheter placement this morning. 3. UTI maintained on antibiotics. Urine culture positive for E. coli. 4. Status post right femur fracture repair and right radial fracture repair. 5. Metabolic acidosis secondary to acute kidney injury and IV fluids. Improving. 6. Anemia. Iron deficiency present. 7. Urinary retention status post King catheter placement. Plan: I will decrease rate of normal saline to 70 mL an hour. Maintain King catheter. Avoid nephrotoxic agents and hypotensive episodes. Diuretics held. Avoid Fleet enemas which I see in her home medications as it can cause acute phosphate nephropathy. Ferrlecit 125 mg IV daily for 3 days. Second dose today. Maintain oral sodium bicarbonate 650 mg twice daily. Repeat electrolytes in the morning.
--- NOTE | 2017-07-26 13:10 | FL ---
EXAMINATION TYPE: FL urography retrograde DATE OF EXAM: 07/26/2017 COMPARISON: NONE HISTORY: Fluoroscopy for retrograde ureteroscopy TECHNIQUE: Fluoroscopy. FINDINGS/IMPRESSION: Fluoroscopic guidance was provided during procedure performed by Dr. Contreras. A total of 1 minute and 3 seconds of fluoroscopic time was utilized during the procedure and 6 spot jason ges was acquired demonstrating retrograde opacification of the ureters and trace amount of bilateral ureteral stents.
--- NOTE | 2017-07-26 14:13 | PN ---
PROGRESS NOTE DATE OF SERVICE: 07/26/2017 REASON FOR FOLLOWUP: E coli urinary tract infection with multiple antibiotic allergies. INTERVAL HISTORY: The patient is afebrile. She is breathing comfortably. Denies having any chest pain. No shortness of breath. No abdominal pain or any diarrhea. PHYSICAL EXAMINATION: Blood pressure 150/70 with a pulse of 80, temperature 98.2. She is 95% on room air. General description is an elderly female, lying in bed in no distress. RESPIRATORY SYSTEM: Unlabored breathing, clear to auscultation anteriorly. HEART: S1, S2. Regular rate and rhythm. ABDOMEN: Soft, no tenderness. LABS: Hemoglobin 7.9, white count of 3.9, BUN of 28, creatinine is 1.43. Urine with an E coli sensitive to Azactam cefepime. DIAGNOSTIC IMPRESSION AND PLAN: Patient with Escherichia coli intact infection, multidrug resistant and have multiple antibiotic allergies. Did start Azactam 1 q.12h. The patient has tolerated. She will continue with Azactam 151 g q.12h for another 10 days to finish for therapy because of complicated UTI with no evidence of hydronephrosis. Continue supportive care. MMODL / IJN: [id number] /
[2017-07-26] MEDS: SODIUM BICARBONATE TAB 650 MG TAB PO SCH ×2 (14:23→20:18)
[2017-07-26] MEDS: DOCUSATE 100 MG CAP PO SCH ×2 (14:23→20:17)
[2017-07-26] MEDS: CALCIUM CARBONATE 500 MG CHEWABLE PO SCH ×3 (14:23→23:00)
[2017-07-26] MEDS: APIXABAN 2.5 MG TABLET PO SCH ×2 (14:23→20:17)
[2017-07-26] MEDS: ESCITALOPRAM 20 MG TAB PO SCH (14:29)
[2017-07-26] MEDS: CHOLECALCIFEROL 1,000 UNIT TAB PO SCH (16:06)
[2017-07-26] MEDS: MULTIVITAMINS, THERA 1 EACH TAB PO SCH (16:08)
[2017-07-26] MEDS: LACTATED RINGERS 1,000 ML IV SCH (16:09)
[2017-07-26] MEDS: SODIUM CHLORIDE 0.9% 1,000 ML IV SCH (16:10)
[2017-07-27] MEDS: HYDROcodone/APAP 10-325MG 1 EACH TAB PO PRN ×3 (01:06→10:07)
[2017-07-27] MEDS: SODIUM CHLORIDE 0.9% 1,000 ML IV SCH (04:35)
[2017-07-27] MEDS: LEVOTHYROXINE 50 MCG TAB PO SCH (05:30)
[2017-07-27] MEDS: DOCUSATE 100 MG CAP PO SCH (08:29)
[2017-07-27] MEDS: CALCIUM CARBONATE 500 MG CHEWABLE PO SCH (08:29)
[2017-07-27] MEDS: SODIUM BICARBONATE TAB 650 MG TAB PO SCH (08:29)
[2017-07-27] MEDS: AZTREONAM 1 GM in SODIUM CHLORIDE 0.9% 50 ML IVPB SCH (08:29)
[2017-07-27] MEDS: ESCITALOPRAM 20 MG TAB PO SCH (08:29)
[2017-07-27] MEDS: APIXABAN 2.5 MG TABLET PO SCH (08:29)
[2017-07-27 08:32] LABS: Calcium 8.4 mg/dL (8.4-10.2); Potassium 4.2 mmol/L (3.5-5.1)
[2017-07-27 09:50] VITALS: BP 120/60; PULSE 82; RESP 17; TEMP 98
--- NOTE | 2017-07-27 09:51 | P.PN ---
Subjective Progress Note Date: 07/27/17 Principal diagnosis: This is a 66-year-old female seen in consultation because of acute kidney injury from bilateral hydronephrosis from scarring of the ureters from previous radiation. She underwent cystoscopy and retrograde stent placements bilaterally. This morning she does not have any complaints no pain no hematuria. She has a King catheter. No fever chills appetite is good. Supposedly she has broken multiple bones after one single fall this has not been worked up as best as sheis aware of Objective - Vital Signs Vital signs: Vital Signs Temp 98.2 F 07/27/17 01:05 Pulse 86 07/27/17 01:05 Resp 18 07/27/17 04:40 BP 121/76 07/27/17 01:05 Pulse Ox 95 07/27/17 01:05 Intake & Output 07/26/17 07/27/17 07/27/17 18:59 06:59 18:59 Intake Total 510.0 1250 Output Total 975 400 Balance -465.0 850 Intake: IV 510.0 Intake, IV Titration 660 Amount Aztreonam 1 gm In Sodium 100 Chloride 0.9% 50 ml @ 100 mls/hr IVPB Q12HR [facility] Rx #:[id number] Sodium Chloride 0.9% 1, 560 000 ml @ 70 mls/hr IV . [id number] [facility] Rx#:[id number] Oral 590 Output: Urine 800 400 2-way Urethral 400 Pleural Fluid 175 Other: Voiding Method Indwelling Catheter Indwelling Catheter On examination she is bedridden chronically because of the fall and broken bones. HEENT exam no JVP neck is supple no facial asymmetry Lungs clear to auscultation with good air entry bilaterally Heart sounds are unremarkable for any murmur rub gallop Abdomen soft nontender Extremity exam was no edema - Labs CBC & Chem 7: 07/26/17 07:25 07/27/17 07:46 Labs: Abnormal Lab Results - Last 24 Hours (Table) 07/27/17 Range/Units 07:46 Chloride 111 H (98-107) mmol/L Carbon Dioxide 21 L (22-30) mmol/L BUN 24 H (7-17) mg/dL Creatinine 1.25 H (0.52-1.04) mg/dL Microbiology - Last 24 Hours (Table) 07/22/17 22:27 Blood Culture - Preliminary Blood No Growth after 96 hours 07/22/17 22:42 Urine Culture - Final Urine,Catheterized Escherichia coli Assessment and Plan Assessment: Impression. 1. Acute kidney injury from urinary retention from bilateral hydronephrosis from ureteral stenosis. Status post bilateral double-J stents cystoscopy introduced. Creatinine is improving, down from 2.34-1.25 2. UTI E. coli. On antibiotics. 3. Fall with fracture of right femur and right radius. Status post repair 4. Anemia with iron deficiency. Saturation is 11% on 07/24/2017. 5. Mild non-gap acidosis from acute kidney injury Recommendation. 1. Maintain discontinue IV fluids as soon as she is able to eat normally, until then Maintain IV fluids. 2. Patient is on sodium bicarbonate as well as calcium carbonate this will improve her acidosis. Discharge per primary physician
--- NOTE | 2017-07-27 10:00 | P.PN ---
Progress Note - Text Progress Note Date: 07/27/17 The patient is afebrile and says that she feels better than prior to placement of the double-J catheters. Urine draining from her King catheter is grossly clear. BUN/creatinine has improved and is 24/1.25. White blood count has also improved and is now 3900. I explained to the patient that her bilateral hydronephrosis is most likely related to scarring of the distal ureters related to her previous radiation therapy. The double-J catheters will palliate the obstruction. The patient's urethral catheter could be removed at any time but her post void residuals should be checked with a bladder scan unit following that to ensure that she is emptying her bladder adequately.
[2017-07-27] MEDS: ERGOCALCIFEROL 50,000 UNIT CAP PO SCH (10:07)
[2017-07-27] MEDS: SODIUM FERRIC GLUCONAT-SUCROSE 125 MG in SODIUM CHLORIDE 0.9% 100 ML IVPB SCH (10:07)
[2017-07-27] MEDS: LACTATED RINGERS 1,000 ML IV SCH (10:45)
--- NOTE | 2017-07-27 16:38 | PN ---
PROGRESS NOTE DATE OF SERVICE: 07/26/2017 SUBJECTIVE: White female, status post nephrostomy tubes placed for secondary to chemotherapy. Acute kidney injury is improving with creatinine down to 1.59. UTI has been treated with IV q.12 hours for 12 days. Prerenal renal failure is improved. Continue with rehab on the right humeral fracture, right radial fracture. CARDIOVASCULAR: S1, S2. LUNGS: Clear. GI: Soft. HEMATOLOGY: Negative Homans. PSYCH: Fair mood and affect. PLAN: Continue current treatments. Diuretics have been discontinued MMODL / IJN: [id number] /
== END 2017-07-27 15:30 | DRG 689 ==
LOC: EC 21:55 → 3SUR 23:07
PROVIDERS: ADMIT Family Medicine; ATTEND Family Medicine
PROC: 0T9B80Z Drainage of Bladder with Drainage Device, Via Natural or Artificial Opening Endoscopic (ICD-10-PCS; principal; 2017-07-26 10:15)
PROC: BT141ZZ Fluoroscopy of Kidneys, Ureters and Bladder using Low Osmolar Contrast (ICD-10-PCS; 2017-07-26 10:15)
DX: N39.0 Urinary tract infection, site not specified (principal); N17.0 Acute kidney failure with tubular necrosis; D68.2 Hereditary deficiency of other clotting factors; E87.2 Acidosis; E86.0 Dehydration; F32.9 Major depressive disorder, single episode, unspecified; Z16.24 Resistance to multiple antibiotics; D50.9 Iron deficiency anemia, unspecified; K74.60 Unspecified cirrhosis of liver; B96.20 Unspecified Escherichia coli [E. coli] as the cause of diseases classified elsewhere; N13.1 Hydronephrosis with ureteral stricture, not elsewhere classified; Z85.118 Personal history of other malignant neoplasm of bronchus and lung; Z85.820 Personal history of malignant melanoma of skin; Z87.440 Personal history of urinary (tract) infections; Z87.891 Personal history of nicotine dependence; Z88.1 Allergy status to other antibiotic agents; Z90.13 Acquired absence of bilateral breasts and nipples; Z90.710 Acquired absence of both cervix and uterus; Z85.42 Personal history of malignant neoplasm of other parts of uterus; Z85.3 Personal history of malignant neoplasm of breast; Z92.3 Personal history of irradiation; Z82.5 Family history of asthma and other chronic lower respiratory diseases; Z79.01 Long term (current) use of anticoagulants; Z90.89 Acquired absence of other organs; Z90.49 Acquired absence of other specified parts of digestive tract; Z86.19 Personal history of other infectious and parasitic diseases; Z88.8 Allergy status to other drugs, medicaments and biological substances; Z91.013 Allergy to seafood; Z79.890 Hormone replacement therapy; Z79.891 Long term (current) use of opiate analgesic; Z79.899 Other long term (current) drug therapy; Z93.6 Other artificial openings of urinary tract status; S42.301D Unspecified fracture of shaft of humerus, right arm, subsequent encounter for fracture with routine healing; S52.91XD Unspecified fracture of right forearm, subsequent encounter for closed fracture with routine healing
CPT/HCPCS: 00000; 36415; 74176; 74420; 76770; 76937; 80048; 80053; 81001; 82728; 83540; 83550; 85025; 87040; 87077; 87086; 87186; 96361; 96365; 99285

== ENCOUNTER 2017-08-30 09:31 | Inpatient (IN) | payer MEDICARE, OTHER ==
[2017-08-30] MEDS ORDERED: SODIUM CHLORIDE 0.9% 1,000 ML IV STA (09:49)
[2017-08-30 11:37] LABS: Anisocytosis Slight; Basophils % (A) 0 %; Eosinophils # (A) 0.3 k/uL (0-0.7); Eosinophils % (A) 4 %; HCT 24.9 % (34.0-46.0); HGB 7.7 gm/dL (11.4-16.0); Hypochromasia Moderate; Lymphocytes # (A) 1.2 k/uL (1.0-4.8); Lymphocytes % (A) 19 %; MCH 26.8 pg (25.0-35.0); MCHC 30.8 g/dL (31.0-37.0); MCV 86.9 fL (80.0-100.0); Mean Platelet Volume 7.1; Monocytes # (A) 0.3 k/uL (0-1.0); Monocytes % (A) 5 %; Neutrophils # (A) 4.3 k/uL (1.3-7.7); Neutrophils % (A) 70 %; Platelet Count 299 k/uL (150-450); RBC 2.86 m/uL (3.80-5.40); RDW 16.9 % (11.5-15.5); WBC 6.2 k/uL (3.8-10.6)
[2017-08-30 11:54] LABS: Albumin 2.5 g/dL (3.5-5.0); Calcium 8.3 mg/dL (8.4-10.2); Potassium 4.6 mmol/L (3.5-5.1); Total Bilirubin 0.2 mg/dL (0.2-1.3); Total Protein 5.6 g/dL (6.3-8.2)
[2017-08-30 11:56] LABS: Creatine Kinase 47 U/L (30-135)
[2017-08-30 12:09] LABS: Creatine Kinase MB 0.7 ng/mL (0.0-2.4); Troponin I <0.012 ng/mL (0.000-0.034)
--- NOTE | 2017-08-30 12:52 | CT ---
EXAMINATION TYPE: CT abdomen pelvis wo con DATE OF EXAM: 08/30/2017 HISTORY: GI bleed per order. CT DLP: 765.60 mGycm. Automated Exposure Control for Dose Reduction was Utilized. TECHNIQUE: CT scan of the abdomen and pelvis is performed without oral or IV contrast. COMPARISON: CT abdomen and pelvis from July 24, 2017 FINDINGS: Within the limitations of a non-contrast study, the following observations are made. LUNG BASES: Right breast prosthesis is partially imaged. There is new small right pleural effusion an d associated compressive atelectasis. There is persistent left basilar pleural thickening and/or irre gular consolidation. There is suspected left-sided volume loss with mediastinal shift is redemonstrat ed. LIVER/GB: Cholecystectomy clips are again seen. PANCREAS: No significant abnormality is seen. SPLEEN: No significant abnormality is seen. ADRENALS: No significant abnormality is seen. KIDNEYS: There are new bilateral double-J ureter stents felt likely satisfactory in position. There i s King catheter within bladder extending to the right of midline. Bladder margins are not well seen with indistinct fat plane from adjacent ascites. There is interval decompression of left-sided hydron ephrosis. There is persistent moderate to severe right-sided hydronephrosis. There is cortical thinni ng and atrophy of both kidneys more prominent in left kidney versus right kidney. BOWEL: No suspicious small or large bowel dilatation is seen. Evaluation bowel suboptimal secondary t o lack of enteric contrast. GENITAL ORGANS: Uterus is suspected surgically absent. Surgical clips in the bilateral adnexa are red emonstrated. LYMPH NODES: No greater than 1cm abdominal or pelvic lymph nodes are appreciated. OSSEOUS STRUCTURES: Osseous structures are demineralized. Metallic hardware from right proximal femur surgery causes streak artifact limiting evaluation of pelvic structures. Demineralization is present . There is moderate to advanced presumed chronic compression fracture at T10 level redemonstrated. Th ere is moderate disc space narrowing with vacuum disc phenomenon L5-S1 level. Some facet arthropathy lower lumbar levels is seen. Surgical sutures throughout the mesentery are redemonstrated. Irregular linear opacity could reflect home until edema, omental caking cannot be excluded if patient has histo ry of known neoplasm. OTHER: There is persistent mild to moderate diffuse soft tissue anasarca. There is persistent small a mount of abdominal and pelvic ascites likely slightly larger in size versus prior CT, Hounsfield unit s average 16 axial image 77 in the anterior left pelvis not significant changed in Hounsfield unit va lue from prior study. IMPRESSION: 1. Suboptimal evaluation for GI bleed without IV contrast. Persistent small to borderline moderate am ount of abdominal and pelvic ascites not significantly changed from prior. New small left pleural eff usion noted. 2. Interval placement of bilateral double-J ureter stents likely satisfactory in position though blad minh wall is not well identified similar to prior. Successful decompression of left-sided hydronephros is is noted. Persistent moderate to severe right-sided hydronephrosis.
[2017-08-30] MEDS ORDERED: MORPHINE SULFATE 2 MG/ML SYRINGE IVP STA (13:23)
--- NOTE | 2017-08-30 13:37 | ED ---
GI Bleed HPI - General Chief complaint: GI Bleed Stated complaint: GI Bleed Time Seen by Provider: 08/30/17 09:49 Source: patient Mode of arrival: EMS Limitations: no limitations - History of Present Illness Initial comments: Extremely 6 years old female was in a half-way for rehab she noticed some dark black stool as well as some bright red blood in the stool that just happened this morning she also has some abdominal discomfort. She had no vomiting no diarrhea and some abdominal discomfort denies any headaches no neck stiffness no frequency urgency dysuria no symptoms of TIA or CVA - Related Data Home Medications Medication Instructions Recorded Confirmed Levothyroxine Sodium [Synthroid] 50 mcg PO DAILY@0607/04/17 08/30/17 Escitalopram Oxalate [Lexapro] 20 mg PO DAILY 07/06/17 08/30/17 Cholecalciferol [Vitamin D3] 2,000 unit PO DAILY@169907/22/17 08/30/17 HYDROcodone/APAP 10-325MG [[place] 1 tab PO Q4HR PRN 07/22/17 08/30/17 10-325] Multivitamins, Thera [Multivitamin 1 tab PO DAILY@169907/22/17 08/30/17 (formulary)] Aspirin EC [Ecotrin] 325 mg PO DAILY@169908/30/17 08/30/17 Bisacodyl [Dulcolax] 10 mg RECTAL DAILY PRN 08/30/17 08/30/17 Docusate [Colace] 100 mg PO BID@0800,169908/30/17 08/30/17 Ferrous Sulfate [Feosol] 325 mg PO BID@0800,169908/30/17 08/30/17 Furosemide [Lasix] 20 mg PO DAILY@59908/30/17 08/30/17 Magnesium Hydroxide [Milk of 2,400 mg PO DAILY PRN 08/30/17 08/30/17 Magnesia] Nitrofurantoin Macrocrystal 100 mg PO BID 08/30/17 08/30/17 [Macrodantin] Ondansetron [Zofran] 4 mg PO Q6H PRN 08/30/17 08/30/17 Potassium Chloride 8 meq PO DAILY@169908/30/17 08/30/17 Sodium Bicarbonate Tab 650 mg PO BID@0800,1700 08/30/17 08/30/17 Previous Rx's Medication Instructions Recorded Calcium Carbonate [Tums] 500 mg PO TID chew 07/09/17 Acetaminophen Tab [Tylenol] 650 mg PO Q6HR PRN tab 07/26/17 Allergies Allergy/AdvReac Type Severity Reaction Status Date / Time VANESSA Inhibitors Allergy Unknown Verified 08/30/17 11:04 baclofen Allergy Confusion Verified 08/30/17 11:04 cefepime HCl [From Maxipime] Allergy Rash/Hives Verified 08/30/17 11:04 cephalexin Allergy Rash/Hives Verified 08/30/17 11:04 ciprofloxacin Allergy Rash/Hives Verified 08/30/17 11:04 clindamycin Allergy Nausea & Verified 08/30/17 11:04 Vomiting erythromycin base Allergy Rash/Hives Verified 08/30/17 11:04 heparin Allergy Unknown Verified 08/30/17 11:04 lisinopril [From Zestril] Allergy Unknown Verified 08/30/17 11:04 lorazepam [From Ativan] Allergy Confusion Verified 08/30/17 11:04 metronidazole [From Flagyl] Allergy Nausea & Verified 08/30/17 11:04 Vomiting penicillin G Allergy Rash/Hives Verified 08/30/17 11:04 shellfish derived [Shellfish] Allergy Swelling Verified 08/30/17 11:04 Sulfa (Sulfonamide Allergy Swelling Verified 08/30/17 11:04 Antibiotics) steroids Allergy Unknown Uncoded 07/22/17 22:34 Review of Systems ROS Statement: Those systems with pertinent positive or pertinent negative responses have been documented in the HPI. ROS Other: All systems not noted in ROS Statement are negative. Past Medical History Past Medical History: Blood Disorder, Cancer, Deep Vein Thrombosis (DVT), GI Bleed, Liver Disease, Respiratory Disorder Additional Past Medical History / Comment(s): 7--15 admitted to [facility] with c/o blood in urine and rectal bleeding, DX GI BLEED AND UTI. other hx: Breast Ca x2 ; Skin Ca squamous and melanoma; uterine ca, lung cancer LOWER LEFT LOBE 70%, c- diff- 6-5-15 snd feb 2017, on xarelto for dvt and portal vein thrombosis. 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 History of Any Multi-Drug Resistant Organisms: C-DIFF Date of last positivie culture/infection: 08/13/14 and MDRO Source:: stool Past Surgical History: Adenoidectomy, Appendectomy, Breast Surgery, Cholecystectomy, Hysterectomy, Orthopedic Surgery, Tonsillectomy Additional Past Surgical History / Comment(s): Mastectomy bilateral; Left lower lobectomy 70%; exploratory laparotomy, LASER SX AT [facility] FOR MELANOMA- CURRENTLY HAS 100 SPOTS THAT THEY ARE WATCHING REMMOVED 4 SO FAR.lasik eye sx, past "abcess on back(ecoli) pt stated they had to open a channel,removed 2 ribs and some muscle and it was open to drain to 18 months". surgical repair to Right wrist, right femur, and right hip in 2018 Additional Past Anesthesia/Blood Transfusion Reaction / Comment(s): PAST BLOOD TRANSFUSIONS- NO COMPLICATIONS Past Psychological History: Depression Smoking Status: Former smoker Past Alcohol Use History: None Reported Past Drug Use History: None Reported - Past Family History Father Additional Family Medical History / Comment(s): FROM COMPLICATIONS OF SCHRAPNEL IN BODY Mother Additional Family Medical History / Comment(s): STOMACH PROBLEMS, EMPHYSEMA General Exam - General Exam Comments Initial Comments: General: The patient is awake and alert, in no distress, and does not appear acutely ill. Skin: Skin is warm and dry and no rashes or lesions are noted. Eye: Pupils are equal, round and reactive to light, extra-ocular movements are intact; there is normal conjunctiva bilaterally. Ears, nose, mouth and throat: There are moist mucous membranes and no oral lesions. Neck: The neck is supple, there is no tenderness or JVD. Cardiovascular: There is a regular rate and rhythm. No murmur, rub or gallop is appreciated. Respiratory: To auscultation bilateral, no wheezing no rhonchi no distress respiratory flores noticed Gastrointestinal: Mildly tender in epigastric area, positive bowel sounds no guarding no rebounds Back: There is no tenderness to palpation in the midline. There is no obvious deformity. Musculoskeletal: Normal ROM, no tenderness, There is no pedal edema. There is no calf tenderness or swelling. No cords were appreciated. Neurological: CN II-XII intact, Cranial nerves III through XII are intact. There are no obvious motor or sensory deficits. Coordination appears grossly intact. Speech is normal. Psychiatric: Cooperative, appropriate mood & affect, normal judgment. Limitations: no limitations Course Vital Signs 08/30/17 08/30/17 08/30/17 09:40 10:43 11:43 Temperature 98.7 F Pulse Rate 79 77 75 Respiratory 20 18 18 Rate Blood Pressure 146/67 150/68 151/65 O2 Sat by Pulse 98 98 98 Oximetry EKG is normal sinus ventricular rate is 74 OK interval is 138 QRS duration is 86 QT/QTc is 46/450 and review of this EKG does not reveal any ST elevation or ST depression Troponin is negative EKG is unremarkable hemoglobin is 7.7 creatinine is 1.4, blood is positive she be admitted to Dr. Thomas service, Dr. Desouza be consulted she be on IV Protonix and considering 7.7 hemoglobin and give her 1 unit of packed red cells Medical Decision Making - Lab Data Result diagrams: 08/30/17 11:20 08/30/17 11:20 Lab Results 08/30/17 08/30/17 08/30/17 Range/Units 10:48 11:20 11:20 WBC 6.2 (3.8-10.6) k/uL RBC 2.86 L (3.80-5.40) m/uL Hgb 7.7 L (11.4-16.0) gm/dL Hct 24.9 L (34.0-46.0) % MCV 86.9 (80.0-100.0) fL MCH 26.8 (25.0-35.0) pg MCHC 30.8 L (31.0-37.0) g/dL RDW 16.9 H (11.5-15.5) % Plt Count 299 (150-450) k/uL Neutrophils % 70 % Lymphocytes % 19 % Monocytes % 5 % Eosinophils % 4 % Basophils % 0 % Neutrophils # 4.3 (1.3-7.7) k/uL Lymphocytes # 1.2 (1.0-4.8) k/uL Monocytes # 0.3 (0-1.0) k/uL Eosinophils # 0.3 (0-0.7) k/uL Basophils # 0.0 (0-0.2) k/uL Hypochromasia Moderate Anisocytosis Slight Sodium 142 (137-145) mmol/L Potassium 4.6 (3.5-5.1) mmol/L Chloride 108 H (98-107) mmol/L Carbon Dioxide 25 (22-30) mmol/L Anion Gap 9 mmol/L BUN 28 H (7-17) mg/dL Creatinine 1.40 H (0.52-1.04) mg/dL Est GFR (CKD-EPI)AfAm 45 (>60 ml/min/1.73 sqM) Est GFR (CKD-EPI)NonAf 39 (>60 ml/min/1.73 sqM) Glucose 92 (74-99) mg/dL Plasma Lactic Acid Alex (0.7-2.0) mmol/L Calcium 8.3 L (8.4-10.2) mg/dL Total Bilirubin 0.2 (0.2-1.3) mg/dL AST 34 (14-36) U/L ALT 30 (9-52) U/L Alkaline Phosphatase 212 H (38-126) U/L Total Creatine Kinase (30-135) U/L CK-MB (CK-2) (0.0-2.4) ng/mL CK-MB (CK-2) Rel Index Troponin I (0.000-0.034) ng/mL Total Protein 5.6 L (6.3-8.2) g/dL Albumin 2.5 L (3.5-5.0) g/dL Stool Occult Blood Positive H (Negative) 08/30/17 08/30/17 Range/Units 11:20 11:20 WBC (3.8-10.6) k/uL RBC (3.80-5.40) m/uL Hgb (11.4-16.0) gm/dL Hct (34.0-46.0) % MCV (80.0-100.0) fL MCH (25.0-35.0) pg MCHC (31.0-37.0) g/dL RDW (11.5-15.5) % Plt Count (150-450) k/uL Neutrophils % % Lymphocytes % % Monocytes % % Eosinophils % % Basophils % % Neutrophils # (1.3-7.7) k/uL Lymphocytes # (1.0-4.8) k/uL Monocytes # (0-1.0) k/uL Eosinophils # (0-0.7) k/uL Basophils # (0-0.2) k/uL Hypochromasia Anisocytosis Sodium (137-145) mmol/L Potassium (3.5-5.1) mmol/L Chloride (98-107) mmol/L Carbon Dioxide (22-30) mmol/L Anion Gap mmol/L BUN (7-17) mg/dL Creatinine (0.52-1.04) mg/dL Est GFR (CKD-EPI)AfAm (>60 ml/min/1.73 sqM) Est GFR (CKD-EPI)NonAf (>60 ml/min/1.73 sqM) Glucose (74-99) mg/dL Plasma Lactic Acid Alex 0.7 (0.7-2.0) mmol/L Calcium (8.4-10.2) mg/dL Total Bilirubin (0.2-1.3) mg/dL AST (14-36) U/L ALT (9-52) U/L Alkaline Phosphatase (38-126) U/L Total Creatine Kinase 47 (30-135) U/L CK-MB (CK-2) 0.7 (0.0-2.4) ng/mL CK-MB (CK-2) Rel Index 1.5 Troponin I <0.012 (0.000-0.034) ng/mL Total Protein (6.3-8.2) g/dL Albumin (3.5-5.0) g/dL Stool Occult Blood (Negative) Disposition Clinical Impression: GI bleed Disposition: ADMITTED IP TO THIS [facility] Condition: Good Referrals: Miles Collado MD [Primary Care Provider] - 1-2 days
[2017-08-30] MEDS ORDERED: MORPHINE SULFATE 2 MG/ML SYRINGE IV PRN (13:38)
[2017-08-30] MEDS ORDERED: ACETAMINOPHEN TAB 325 MG TAB PO PRN ×2 (13:38→13:43)
[2017-08-30] MEDS ORDERED: NALOXONE 0.4 MG/ML 1 ML VIAL IV PRN (13:38)
[2017-08-30] MEDS ORDERED: ONDANSETRON 4 MG TAB PO PRN (13:43)
[2017-08-30] MEDS ORDERED: MAGNESIUM HYDROXIDE 2,400 MG/10 ML CUP PO PRN (13:43)
[2017-08-30] MEDS ORDERED: BISACODYL 10 MG SUPP RECTAL PRN (13:43)
[2017-08-30] MEDS ORDERED: PANTOPRAZOLE 40 MG/10 ML VIAL IVP STA (13:45)
[2017-08-30] MEDS ORDERED: LIDOCAINE 1% INJ 10MG/ML (20 ML MDV) SQ ONE (16:48)
[2017-08-30 17:59] LABS: Anisocytosis Slight; Basophils % (A) 0 %; Eosinophils # (A) 0.3 k/uL (0-0.7); Eosinophils % (A) 5 %; HGB 7.7 gm/dL (11.4-16.0); Hypochromasia Moderate; Lymphocytes # (A) 1.1 k/uL (1.0-4.8); Lymphocytes % (A) 21 %; MCH 26.9 pg (25.0-35.0); MCHC 30.6 g/dL (31.0-37.0); MCV 87.8 fL (80.0-100.0); Mean Platelet Volume 6.6; Monocytes # (A) 0.3 k/uL (0-1.0); Monocytes % (A) 6 %; Neutrophils # (A) 3.3 k/uL (1.3-7.7); Neutrophils % (A) 66 %; Platelet Count 295 k/uL (150-450); RBC 2.85 m/uL (3.80-5.40); RDW 17.1 % (11.5-15.5); WBC 5.1 k/uL (3.8-10.6)
[2017-08-30] MEDS: CALCIUM CARBONATE 500 MG CHEWABLE PO SCH ×2 (18:15→21:31)
[2017-08-30] MEDS: FERROUS SULFATE 325 MG TAB PO SCH (18:15)
[2017-08-30] MEDS: CHOLECALCIFEROL 1,000 UNIT TAB PO SCH (18:16)
[2017-08-30] MEDS: SODIUM BICARBONATE TAB 650 MG TAB PO SCH (18:16)
[2017-08-30] MEDS: DOCUSATE 100 MG CAP PO SCH (18:16)
[2017-08-30] MEDS: MULTIVITAMINS, THERA 1 EACH TAB PO SCH (18:16)
[2017-08-30] MEDS: POTASSIUM CHLORIDE 8 MEQ PO SCH (18:17)
--- NOTE | 2017-08-30 19:31 | XR ---
EXAMINATION TYPE: XR chest 1V portable DATE OF EXAM: 08/30/2017 COMPARISON: 10/02/2014 HISTORY: Line placement TECHNIQUE: Single frontal view of the chest is obtained. FINDINGS: There is right jugular catheter with the tip over the top of the right atrium. There is no sign of pneumothorax. There is some infiltrate and pleural thickening at the lung bases. There is no gross heart failure. There are chest leads. Thoracic aorta is atheromatous. IMPRESSION: Central venous catheter appears in good position. No pneumothorax. There is removal of t he left side catheter compared to old exam. There is chronic pleural effusions and basilar pulmonary infiltrates and atelectasis similar to old exam.
--- NOTE | 2017-08-30 19:39 | P.CNPUL ---
History of Present Illness Consult date: 08/30/17 Reason for consult: other Chief complaint: GI bleed, critical care consult History of present illness: 66-year-old female who was seen evaluated examined in the fourth floor patient was admitted into the emergency department with problems associated with dark stool noted an extended care facility where she was admitted for rehabilitation purposes patient had a complex medical history associated with uterine cancer lung cancer left lower lobe resection history of C. difficile melanoma skin cancer, with history of deep venous thrombosis and portal vein thrombosis has been on Sourav in the past, patient is status post a bilateral mastectomy as well as left lower lobe resection over 70% history of exploratory laparoscopy in the past patient had a fall about 6 weeks ago was hospitalized by and under orthopedic service for right flank wrist fracture right femoral and right hip fracture for details refer to the operative notes and prior H&P and consultations. Patient was discharged with a PICC line for antibiotics and IV axis to [facility] care facility PICC line has been there for last 4 weeks appears to have thrombosed as noted and has been obtained but infusions were being performed patient has been dizzy lightheaded as well I was asked to evaluate this patient if needs a central line and also patient will need laboratory workup, data predominantly obtained from the chart as well as the patient, patient has been complaining abdominal discomfort for last 1 day as well as on arrival noted to have hemoglobin of only 7.7 other significant labs include BUN/creatinine is 28 and 1.4 Review of Systems All systems: negative Past Medical History Past Medical History: Blood Disorder, Cancer, Deep Vein Thrombosis (DVT), GI Bleed, Liver Disease, Respiratory Disorder Additional Past Medical History / Comment(s): 09-10-14 [facility] with c/o blood in urine and rectal bleeding, DX GI BLEED AND UTI. other hx: Breast Ca x2 ; Skin Ca squamous and melanoma; uterine ca, lung cancer LOWER LEFT LOBE 70%, c- diff- 08-13-14 snd feb 2017, on xarelto for dvt and portal vein thrombosis. 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 History of Any Multi-Drug Resistant Organisms: C-DIFF Date of last positivie culture/infection: 08/13/14 and MDRO Source:: stool Past Surgical History: Adenoidectomy, Appendectomy, Breast Surgery, Cholecystectomy, Hysterectomy, Orthopedic Surgery, Tonsillectomy Additional Past Surgical History / Comment(s): Mastectomy bilateral; Left lower lobectomy 70%; exploratory laparotomy, LASER SX AT [facility] FOR MELANOMA- CURRENTLY HAS 100 SPOTS THAT THEY ARE WATCHING REMMOVED 4 SO FAR.lasik eye sx, past "abcess on back(ecoli) pt stated they had to open a channel,removed 2 ribs and some muscle and it was open to drain to 18 months". surgical repair to Right wrist, right femur, and right hip in 2018 Additional Past Anesthesia/Blood Transfusion Reaction / Comment(s): PAST BLOOD TRANSFUSIONS- NO COMPLICATIONS Smoking Status: Former smoker - Past Family History Father Additional Family Medical History / Comment(s): FROM COMPLICATIONS OF SCHRAPNEL IN BODY Mother Additional Family Medical History / Comment(s): STOMACH PROBLEMS, EMPHYSEMA Medications and Allergies Home Medications Medication Instructions Recorded Confirmed Type Levothyroxine Sodium [Synthroid] 50 mcg PO DAILY@0600 07/04/17 08/30/17 History Escitalopram Oxalate [Lexapro] 20 mg PO DAILY 07/06/17 08/30/17 History Calcium Carbonate [Tums] 500 mg PO TID chew 07/09/17 08/30/17 Rx Cholecalciferol [Vitamin D3] 2,000 unit PO DAILY@0 07/22/17 08/30/17 History HYDROcodone/APAP 10-325MG [Ermine 1 tab PO Q4HR PRN 07/22/17 08/30/17 History 10-325] Multivitamins, Thera [Multivitamin 1 tab PO DAILY@0 07/22/17 08/30/17 History (formulary)] Acetaminophen Tab [Tylenol] 650 mg PO Q6HR PRN tab 07/26/17 08/30/17 Rx Aspirin EC [Ecotrin] 325 mg PO DAILY@169908/30/17 08/30/17 History Bisacodyl [Dulcolax] 10 mg RECTAL DAILY PRN 08/30/17 08/30/17 History Docusate [Colace] 100 mg PO BID@0800,1700 08/30/17 08/30/17 History Ferrous Sulfate [Feosol] 325 mg PO BID@0800,1700 08/30/17 08/30/17 History Furosemide [Lasix] 20 mg PO DAILY@0600 08/30/17 08/30/17 History Magnesium Hydroxide [Milk of 2,400 mg PO DAILY PRN 08/30/17 08/30/17 History Magnesia] Nitrofurantoin Macrocrystal 100 mg PO BID 08/30/17 08/30/17 History [Macrodantin] Ondansetron [Zofran] 4 mg PO Q6H PRN 08/30/17 08/30/17 History Potassium Chloride 8 meq PO DAILY@1700 08/30/17 08/30/17 History Sodium Bicarbonate Tab 650 mg PO BID@0800,1700 08/30/17 08/30/17 History Allergies Allergy/AdvReac Type Severity Reaction Status Date / Time VANESSA Inhibitors Allergy Unknown Verified 08/30/17 11:04 baclofen Allergy Confusion Verified 08/30/17 11:04 cefepime HCl [From Maxipime] Allergy Rash/Hives Verified 08/30/17 11:04 cephalexin Allergy Rash/Hives Verified 08/30/17 11:04 ciprofloxacin Allergy Rash/Hives Verified 08/30/17 11:04 clindamycin Allergy Nausea & Verified 08/30/17 11:04 Vomiting erythromycin base Allergy Rash/Hives Verified 08/30/17 11:04 heparin Allergy Unknown Verified 08/30/17 11:04 lisinopril [From Zestril] Allergy Unknown Verified 08/30/17 11:04 lorazepam [From Ativan] Allergy Confusion Verified 08/30/17 11:04 metronidazole [From Flagyl] Allergy Nausea & Verified 08/30/17 11:04 Vomiting penicillin G Allergy Rash/Hives Verified 08/30/17 11:04 shellfish derived [Shellfish] Allergy Swelling Verified 08/30/17 11:04 Sulfa (Sulfonamide Allergy Swelling Verified 08/30/17 11:04 Antibiotics) steroids Allergy Unknown Uncoded 07/22/17 22:34 Physical Exam Vitals: Vital Signs Temp Pulse Pulse Resp BP BP Pulse Ox 08/30/17 15:20 97.7 F 85 20 138/65 90 L 08/30/17 15:06 98.4 F 79 16 157/70 94 L 08/30/17 14:00 98.3 F 75 16 161/71 92 L 08/30/17 13:32 79 18 161/71 98 08/30/17 11:43 75 18 151/65 98 08/30/17 10:43 77 18 150/68 98 08/30/17 09:40 98.7 F 79 20 146/67 98 Intake and Output 08/30/17 08/30/17 08/30/17 06:59 14:59 22:59 Intake Total 400 Balance 400 Intake: Amount of Fluid Infused ( 400 ml) Other: Weight 81.647 kg Skin: Skin is warm and dry and no rashes or lesions are noted. Eye: Pupils are equal, round and reactive to light, extra-ocular movements are intact; there is normal conjunctiva bilaterally. Ears, nose, mouth and throat: There are moist mucous membranes and no oral lesions. Neck: The neck is supple, there is no tenderness or JVD. Cardiovascular: There is a regular rate and rhythm. No murmur, rub or gallop is appreciated. Respiratory: To auscultation bilateral, no wheezing no rhonchi no distress respiratory flores noticed Gastrointestinal: Mildly tender in epigastric area, positive bowel sounds no guarding no rebounds Back: There is no tenderness to palpation in the midline. There is no obvious deformity. Musculoskeletal: Normal ROM, no tenderness, There is no pedal edema. There is no calf tenderness or swelling. No cords were appreciated. Neurological: CN II-XII intact, Cranial nerves III through XII are intact. There are no obvious motor or sensory deficits. Coordination appears grossly intact. Speech is normal. Psychiatric: Cooperative, appropriate mood & affect, normal judgment. Results - Laboratory Findings CBC and BMP: 08/30/17 17:47 08/30/17 11:20 Abnormal lab findings: Abnormal Labs 08/30/17 08/30/17 08/30/17 10:48 11:20 11:20 RBC 2.86 L Hgb 7.7 L Hct 24.9 L MCHC 30.8 L RDW 16.9 H Chloride 108 H BUN 28 H Creatinine 1.40 H Calcium 8.3 L Alkaline Phosphatase 212 H Total Protein 5.6 L Albumin 2.5 L Stool Occult Blood Positive H 08/30/17 17:47 RBC 2.85 L Hgb 7.7 L Hct 25.0 L MCHC 30.6 L RDW 17.1 H Chloride BUN Creatinine Calcium Alkaline Phosphatase Total Protein Albumin Stool Occult Blood - Diagnostic Findings Chest x-ray: report reviewed, image reviewed (Computed tomography scan of the abdominal and pelvis is reviewed as well, right lower lobe subsegmental atelectasis is noted along with pleural effusion Ammann generalized tissue anasarca seen) Assessment and Plan Assessment: GI bleed appears to be upper GI presenting as lower GI bleed Acute on chronic anemia Right-sided pleural effusion Subsegmental basal atelectasis History of hip fracture and femoral fracture Nonfunctioning/malfunctioning PICC line 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 Plan: Hemoglobin globin monitoring if hemoglobin drops less than 7 type crossmatch and transfuse 1-2 packed RBC If any evidence of active GI bleeding is seen than transfer patient to the ICU for now can be managed on the floor Given poor peripheral access and lack of inability to obtain samples and do labs and transfuse blood as needed we'll do a triple-lumen catheter and DC the PICC line Proton pump inhibitor Continue home medications GI consult Other recommendations pending plan of care as per clinical response of the patient Pleural effusion appears to be related to volume overload and third spacing small in amount will monitor observe no plans for thoracentesis Time with Patient: Greater than 30
--- NOTE | 2017-08-30 19:41 | P.PCN ---
Date of Procedure: 08/30/17 Preoperative Diagnosis: Acute GI bleed, lung cancer, deep venous thrombosis, severe anemia acute Postoperative Diagnosis: As above Procedure(s) Performed: Right-sided triple-lumen internal jugular catheter placement Anesthesia: local Surgeon: Jonathon Devlin Estimated Blood Loss (ml): 5 Condition: stable Disposition: floor Indications for Procedure: As above Operative Findings: Has below Description of Procedure: Patient prepared and draped in a usual fashion informed consent obtained from the patient at length, 1% lidocaine infiltrated into the posterior lateral aspect of the neck using a modified Seldinger technique triple-lumen catheter inserted into the right internal jugular vein via posterior approach patient tolerated the procedure well no complication noted as procedure chest x-ray reviewed no evidence of pneumothorax stable triple-lumen catheter into the SVC
[2017-08-30] MEDS: HYDROcodone/APAP 10-325MG 1 EACH TAB PO PRN (19:50)
[2017-08-30 19:57] LABS: Anisocytosis Slight; Basophils % (A) 1 %; Eosinophils # (A) 0.2 k/uL (0-0.7); Eosinophils % (A) 4 %; HCT 26.1 % (34.0-46.0); Hypochromasia Moderate; Lymphocytes # (A) 0.7 k/uL (1.0-4.8); Lymphocytes % (A) 16 %; MCHC 30.7 g/dL (31.0-37.0); MCV 87.8 fL (80.0-100.0); Mean Platelet Volume 7.1; Monocytes # (A) 0.3 k/uL (0-1.0); Monocytes % (A) 6 %; Neutrophils # (A) 3.4 k/uL (1.3-7.7); Neutrophils % (A) 72 %; Platelet Count 302 k/uL (150-450); RBC 2.98 m/uL (3.80-5.40); RDW 16.9 % (11.5-15.5); WBC 4.6 k/uL (3.8-10.6)
[2017-08-30] MEDS: NITROFURANTOIN MONOHYD/M-CRYST 100 MG CAP PO SCH (21:31)
[2017-08-31 06:13] LABS: Anisocytosis Slight; Basophils % (A) 1 %; Eosinophils # (A) 0.3 k/uL (0-0.7); Eosinophils % (A) 6 %; HGB 7.9 gm/dL (11.4-16.0); Hypochromasia Moderate; Lymphocytes # (A) 0.9 k/uL (1.0-4.8); Lymphocytes % (A) 22 %; MCH 26.8 pg (25.0-35.0); MCHC 30.4 g/dL (31.0-37.0); MCV 88.1 fL (80.0-100.0); Monocytes # (A) 0.3 k/uL (0-1.0); Monocytes % (A) 8 %; Neutrophils # (A) 2.6 k/uL (1.3-7.7); Neutrophils % (A) 63 %; Platelet Count 269 k/uL (150-450); Poikilocytosis Slight; RBC 2.96 m/uL (3.80-5.40); RDW 16.5 % (11.5-15.5); WBC 4.1 k/uL (3.8-10.6)
[2017-08-31 06:23] LABS: Albumin 2.3 g/dL (3.5-5.0); Calcium 7.9 mg/dL (8.4-10.2); Total Bilirubin 0.5 mg/dL (0.2-1.3); Total Protein 5.1 g/dL (6.3-8.2)
[2017-08-31] MEDS: LEVOTHYROXINE 50 MCG TAB PO SCH (06:27)
[2017-08-31] MEDS: FUROSEMIDE 20 MG TAB PO SCH (06:27)
[2017-08-31] MEDS: HYDROcodone/APAP 10-325MG 1 EACH TAB PO PRN ×4 (07:01→21:44)
[2017-08-31 07:19] LABS: Glucose,Whole Blood 91 mg/dL (75-99)
[2017-08-31] MEDS: DOCUSATE 100 MG CAP PO SCH ×4 (10:21→16:26)
[2017-08-31] MEDS: CALCIUM CARBONATE 500 MG CHEWABLE PO SCH ×3 (10:21→21:44)
[2017-08-31] MEDS: FERROUS SULFATE 325 MG TAB PO SCH ×2 (10:21→16:21)
[2017-08-31] MEDS: SODIUM BICARBONATE TAB 650 MG TAB PO SCH ×2 (10:21→16:21)
[2017-08-31] MEDS: NITROFURANTOIN MONOHYD/M-CRYST 100 MG CAP PO SCH ×2 (10:22→21:44)
[2017-08-31] MEDS: ESCITALOPRAM 20 MG TAB PO SCH (10:22)
[2017-08-31] MEDS: PANTOPRAZOLE 40 MG/10 ML VIAL IV SCH (10:26)
--- NOTE | 2017-08-31 12:47 | P.NPCON ---
History of Present Illness - Reason for Consult acute renal failure, chronic renal failure - History of Present Illness Reason for consultation: Chronic a disease History of present illness: Patient is a 66-year-old female seen in renal consultation for chronic kidney disease. Patient has chronic kidney disease stage III with baseline creatinine in the range of 1.2-1.4. Creatinine is stable at 1.4 this admission. Patient resides at [facility] and presented to the hospital with bloody bowel movements. Patient states when she went to the bathroom yesterday she had blood clots in her stool. She was subsequently sent to the hospital. Her hemoglobin was 7.7 on admission and she has received 2 units of blood transfused and so far. Hemoglobin this morning was 7.9. She denies any further hematochezia or melena. Admits to good urine output. She has a King catheter in place. Patient has history of obstructive uropathy and has bilateral ureteral stents in place. She is also noted to have atrophic kidneys bilaterally. She denies any chest pain or shortness of breath. Denies vomiting or diarrhea. Hemodynamically stable. Denies use of NSAIDs. Patient sustained a fall about 6 weeks ago and broke her right femur hip as well as wrists. She underwent surgical repair subsequently and is currently in rehab. Vital signs are stable. General: The patient appeared well nourished and normally developed. HEENT: Head exam is unremarkable. Neck is without jugular venous distension. LUNGS: Lungs are clear to auscultation and percussion. Breath sounds decreased. HEART: Rate and Rhythm are regular. First and second heart sounds normal. No murmurs, rubs or gallops. ABDOMEN: Abdominal exam reveals normal bowel sounds. Non-tender and non- distended. No evidence of peritonitis. EXTREMITITES: 1+ edema. Past Medical History Past Medical History: Blood Disorder, Cancer, Deep Vein Thrombosis (DVT), GI Bleed, Liver Disease, Respiratory Disorder Additional Past Medical History / Comment(s): 09-10-14 admitted to [facility] with c/o blood in urine and rectal bleeding, DX GI BLEED AND UTI. other hx: Breast Ca x2 ; Skin Ca squamous and melanoma; uterine ca, lung cancer LOWER LEFT LOBE 70%, c- diff- 6-5-15 snd feb 2017, on xarelto for dvt and portal vein thrombosis. 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 History of Any Multi-Drug Resistant Organisms: C-DIFF Date of last positivie culture/infection: 08/13/14 and MDRO Source:: stool Past Surgical History: Adenoidectomy, Appendectomy, Breast Surgery, Cholecystectomy, Hysterectomy, Orthopedic Surgery, Tonsillectomy Additional Past Surgical History / Comment(s): Mastectomy bilateral; Left lower lobectomy 70%; exploratory laparotomy, [facility]ER [facility]X AT [facility] FOR MELANOMA- CURRENTLY HAS 100 SPOTS THAT THEY ARE WATCHING REMMOVED 4 SO FAR.lasik eye sx, past "abcess on back(ecoli) pt stated they had to open a channel,removed 2 ribs and some muscle and it was open to drain to 18 months". surgical repair to Right wrist, right femur, and right hip in 2018 Additional Past Anesthesia/Blood Transfusion Reaction / Comment(s): PAST BLOOD TRANSFUSIONS- NO COMPLICATIONS Smoking Status: Former smoker - Past Family History Father Additional Family Medical History / Comment(s): FROM COMPLICATIONS OF SCHRAPNEL IN BODY Mother Additional Family Medical History / Comment(s): STOMACH PROBLEMS, EMPHYSEMA Medications and Allergies Home Medications Medication Instructions Recorded Confirmed Type Levothyroxine Sodium [Synthroid] 50 mcg PO DAILY@0600 07/04/17 08/30/17 History Escitalopram Oxalate [Lexapro] 20 mg PO DAILY 07/06/17 08/30/17 History Calcium Carbonate [Tums] 500 mg PO TID chew 07/09/17 08/30/17 Rx Cholecalciferol [Vitamin D3] 2,000 unit PO DAILY@169907/22/17 08/30/17 History HYDROcodone/APAP 10-325MG [Page 1 tab PO Q4HR PRN 07/22/17 08/30/17 History 10-325] Multivitamins, Thera [Multivitamin 1 tab PO DAILY@169907/22/17 08/30/17 History (formulary)] Acetaminophen Tab [Tylenol] 650 mg PO Q6HR PRN tab 07/26/17 08/30/17 Rx Aspirin EC [Ecotrin] 325 mg PO DAILY@1700 08/30/17 08/30/17 History Bisacodyl [Dulcolax] 10 mg RECTAL DAILY PRN 08/30/17 08/30/17 History Docusate [Colace] 100 mg PO BID@0800,1700 08/30/17 08/30/17 History Ferrous Sulfate [Feosol] 325 mg PO BID@0800,1700 08/30/17 08/30/17 History Furosemide [Lasix] 20 mg PO DAILY@0600 08/30/17 08/30/17 History Magnesium Hydroxide [Milk of 2,400 mg PO DAILY PRN 08/30/17 08/30/17 History Magnesia] Nitrofurantoin Macrocrystal 100 mg PO BID 08/30/17 08/30/17 History [Macrodantin] Ondansetron [Zofran] 4 mg PO Q6H PRN 08/30/17 08/30/17 History Potassium Chloride 8 meq PO DAILY@1700 08/30/17 08/30/17 History Sodium Bicarbonate Tab 650 mg PO BID@0800,1700 08/30/17 08/30/17 History Allergies Allergy/AdvReac Type Severity Reaction Status Date / Time VANESSA Inhibitors Allergy Unknown Verified 08/30/17 11:04 baclofen Allergy Confusion Verified 08/30/17 11:04 cefepime HCl [From Maxipime] Allergy Rash/Hives Verified 08/30/17 11:04 cephalexin Allergy Rash/Hives Verified 08/30/17 11:04 ciprofloxacin Allergy Rash/Hives Verified 08/30/17 11:04 clindamycin Allergy Nausea & Verified 08/30/17 11:04 Vomiting erythromycin base Allergy Rash/Hives Verified 08/30/17 11:04 heparin Allergy Unknown Verified 08/30/17 11:04 lisinopril [From Zestril] Allergy Unknown Verified 08/30/17 11:04 lorazepam [From Ativan] Allergy Confusion Verified 08/30/17 11:04 metronidazole [From Flagyl] Allergy Nausea & Verified 08/30/17 11:04 Vomiting penicillin G Allergy Rash/Hives Verified 08/30/17 11:04 shellfish derived [Shellfish] Allergy Swelling Verified 08/30/17 11:04 Sulfa (Sulfonamide Allergy Swelling Verified 08/30/17 11:04 Antibiotics) steroids Allergy Unknown Uncoded 07/22/17 22:34 Physical Exam Vitals: Vital Signs Temp Pulse Pulse Resp BP BP BP 08/31/17 09:39 98.0 F 80 18 130/62 08/31/17 09:17 97.7 F 84 16 120/52 08/31/17 07:37 98.4 F 81 20 136/62 08/31/17 07:10 18 08/31/17 07:07 98.0 F 82 18 143/67 08/31/17 06:57 98.0 F 82 18 143/67 08/31/17 06:50 98.1 F 83 20 137/70 08/31/17 05:57 98.6 F 85 17 129/69 08/31/17 01:59 98.3 F 74 18 133/62 08/30/17 23:16 98.9 F 76 16 124/55 08/30/17 22:46 97.6 F 77 18 122/55 08/30/17 22:36 97.8 F 77 20 116/54 08/30/17 22:30 98.6 F 80 16 111/55 08/30/17 16:00 85 20 08/30/17 15:20 97.7 F 85 20 138/65 08/30/17 15:06 98.4 F 79 16 157/70 08/30/17 14:00 98.3 F 75 16 161/71 08/30/17 13:32 79 18 161/71 Pulse Ox 08/31/17 09:39 08/31/17 09:17 08/31/17 07:37 96 08/31/17 07:10 93 L 08/31/17 07:07 93 L 08/31/17 06:57 93 L 08/31/17 06:50 92 L 08/31/17 05:57 91 L 08/31/17 01:59 94 L 08/30/17 23:16 91 L 08/30/17 22:46 93 L 08/30/17 22:36 95 08/30/17 22:30 91 L 08/30/17 16:00 08/30/17 15:20 90 L 08/30/17 15:06 94 L 08/30/17 14:00 92 L 08/30/17 13:32 98 Intake and Output 08/30/17 08/31/17 08/31/17 22:59 06:59 14:59 Intake Total 400 310 310 Output Total 400 Balance 400 -90 310 Intake: Amount of Fluid Infused ( 400 ml) Blood Product 0 310 310 Rc As-1 Unit 0 310 [id number] Rc As-1 Unit 0 310 [id number] Output: Urine 400 Other: Voiding Method Indwelling Catheter # Bowel Movements 1 1 Results - Lab Results Most recent lab results Calcium 7.9 mg/dL (8.4-10.2) L 08/31/17 06:05 08/31/17 06:05 08/31/17 06:05 Assessment and Plan Plan: Assessment: 1. Chronic kidney disease stage III secondary to obstructive uropathy. Baseline creatinine in the range of 1.2-1.4. GFR at baseline. 2. Acute blood loss anemia status post 2 units blood transfusion. 3. Hydronephrosis status post bilateral ureteral stents placement. She follows with urology. 4. Lower extremity edema maintained on Lasix 20 mg daily which can be continued. Plan: Check iron studies. Monitor hemoglobin closely. Check urinalysis. Avoid nephrotoxic agents and hypotensive episodes. Repeat electrolytes in the morning. Thank you for the consultation. I will continue to follow the patient with you during her hospital stay.
--- NOTE | 2017-08-31 14:44 | P.PN ---
Subjective Progress Note Date: 08/31/17 Principal diagnosis: Acute GI bleed, acute on chronic anemia, right-sided small pleural effusion, subsegmental basal atelectasis, recent hip fracture femoral fracture and wrist fracture, chronic renal failure stage III, history of lung cancer 08/31/2017, patient seen eval reexamined during the rounds clinically has been doing well she had 2 bowel movement earlier today they were regular normal color no active bleeding is seen however patient hemoglobin did drop down require 2 units of packed RBC today hemoglobin is over 8 now hemodynamically stable denies any chest pain or abdominal pain labs reviewed medications reviewed 66-year-old female who was seen evaluated examined in the fourth floor patient was admitted into the emergency department with problems associated with dark stool noted an extended care facility where she was admitted for rehabilitation purposes patient had a complex medical history associated with uterine cancer lung cancer left lower lobe resection history of C. difficile melanoma skin cancer, with history of deep venous thrombosis and portal vein thrombosis has been on Sourav in the past, patient is status post a bilateral mastectomy as well as left lower lobe resection over 70% history of exploratory laparoscopy in the past patient had a fall about 6 weeks ago was hospitalized by and under orthopedic service for right flank wrist fracture right femoral and right hip fracture for details refer to the operative notes and prior H&P and consultations. Patient was discharged with a PICC line for antibiotics and IV axis to extended care facility PICC line has been there for last 4 weeks appears to have thrombosed as noted and has been obtained but infusions were being performed patient has been dizzy lightheaded as well I was asked to evaluate this patient if needs a central line and also patient will need laboratory workup, data predominantly obtained from the chart as well as the patient, patient has been complaining abdominal discomfort for last 1 day as well as on arrival noted to have hemoglobin of only 7.7 other significant labs include BUN/creatinine is 28 and 1.4 Objective - Vital Signs Vital signs: Vital Signs Temp 98.0 F 08/31/17 09:39 Pulse 80 08/31/17 09:39 Resp 18 08/31/17 09:39 BP 130/62 08/31/17 09:39 Pulse Ox 96 08/31/17 07:37 Intake & Output 08/30/17 08/31/17 08/31/17 18:59 06:59 18:59 Intake Total 400 310 310 Output Total 400 Balance 400 -90 310 Weight 81.647 kg Intake: Amount of Fluid Infused ( 400 ml) Blood Product 310 310 Rc As-1 Unit 0 310 [id number] Rc As-1 Unit 310 [id number] Output: Urine 400 Other: Voiding Method Indwelling Catheter Indwelling Catheter Indwelling Catheter # Bowel Movements 1 1 - Exam Skin: Skin is warm and dry and no rashes or lesions are noted. Eye: Pupils are equal, round and reactive to light, extra-ocular movements are intact; there is normal conjunctiva bilaterally. Ears, nose, mouth and throat: There are moist mucous membranes and no oral lesions. Neck: The neck is supple, there is no tenderness or JVD. Cardiovascular: There is a regular rate and rhythm. No murmur, rub or gallop is appreciated. Respiratory: To auscultation bilateral, no wheezing no rhonchi no distress respiratory flores noticed Gastrointestinal: Mildly tender in epigastric area, positive bowel sounds no guarding no rebounds Back: There is no tenderness to palpation in the midline. There is no obvious deformity. Musculoskeletal: Normal ROM, no tenderness, There is no pedal edema. There is no calf tenderness or swelling. No cords were appreciated. Neurological: CN II-XII intact, Cranial nerves III through XII are intact. There are no obvious motor or sensory deficits. Coordination appears grossly intact. Speech is normal. Psychiatric: Cooperative, appropriate mood & affect, normal judgment. - Labs CBC & Chem 7: 08/31/17 06:05 08/31/17 06:05 Labs: Abnormal Lab Results - Last 24 Hours (Table) 08/30/17 08/30/17 08/30/17 Range/Units 17:47 19:45 19:45 RBC 2.85 L 2.98 L (3.80-5.40) m/uL Hgb 7.7 L 8.0 L (11.4-16.0) gm/dL Hct 25.0 L 26.1 L (34.0-46.0) % MCHC 30.6 L 30.7 L (31.0-37.0) g/dL RDW 17.1 H 16.9 H (11.5-15.5) % Lymphocytes # 0.7 L (1.0-4.8) k/uL BUN (7-17) mg/dL Creatinine (0.52-1.04) mg/dL Calcium (8.4-10.2) mg/dL Alkaline Phosphatase (38-126) U/L Total Protein (6.3-8.2) g/dL Albumin (3.5-5.0) g/dL Crossmatch See Detail 08/31/17 08/31/17 Range/Units 06:05 06:05 RBC 2.96 L (3.80-5.40) m/uL Hgb 7.9 L (11.4-16.0) gm/dL Hct 26.0 L (34.0-46.0) % MCHC 30.4 L (31.0-37.0) g/dL RDW 16.5 H (11.5-15.5) % Lymphocytes # 0.9 L (1.0-4.8) k/uL BUN 25 H (7-17) mg/dL Creatinine 1.40 H (0.52-1.04) mg/dL Calcium 7.9 L (8.4-10.2) mg/dL Alkaline Phosphatase 182 H (38-126) U/L Total Protein 5.1 L (6.3-8.2) g/dL Albumin 2.3 L (3.5-5.0) g/dL Crossmatch Assessment and Plan Assessment: GI bleed appears to be upper GI presenting as lower GI bleed Acute on chronic anemia Right-sided pleural effusion Subsegmental basal atelectasis History of hip fracture and femoral fracture Nonfunctioning/malfunctioning PICC line 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 Plan: Hemoglobin monitoring if hemoglobin drops less than 7 type crossmatch and transfuse 1-2 packed RBC If any evidence of active GI bleeding is seen than transfer patient to the ICU for now can be managed on the floor Given poor peripheral access and lack of inability to obtain samples and do labs and transfuse blood as needed we'll do a triple-lumen catheter and DC the PICC line Proton pump inhibitor Continue home medications GI consult Other recommendations pending plan of care as per clinical response of the patient Pleural effusion appears to be related to volume overload and third spacing small in amount will monitor observe no plans for thoracentesis Time with Patient: Greater than 30
[2017-08-31 16:16] LABS: Iron Saturation 37.45 (12.00-45.00)
[2017-08-31] MEDS: MULTIVITAMINS, THERA 1 EACH TAB PO SCH (16:21)
[2017-08-31] MEDS: CHOLECALCIFEROL 1,000 UNIT TAB PO SCH (16:21)
[2017-08-31 17:03] LABS: Anisocytosis Slight; Basophils % (A) 1 %; Eosinophils # (A) 0.3 k/uL (0-0.7); Eosinophils % (A) 6 %; HCT 29.4 % (34.0-46.0); HGB 9.1 gm/dL (11.4-16.0); Hypochromasia Moderate; Lymphocytes # (A) 0.5 k/uL (1.0-4.8); Lymphocytes % (A) 11 %; MCH 27.5 pg (25.0-35.0); MCV 88.5 fL (80.0-100.0); Monocytes # (A) 0.2 k/uL (0-1.0); Monocytes % (A) 5 %; Neutrophils # (A) 3.4 k/uL (1.3-7.7); Neutrophils % (A) 75 %; Platelet Count 251 k/uL (150-450); Poikilocytosis Slight; RBC 3.32 m/uL (3.80-5.40); RDW 16.3 % (11.5-15.5); WBC 4.5 k/uL (3.8-10.6)
[2017-08-31 17:08] LABS: Appearance,Urine Turbid (Clear); Bacteria,Urine Occasional /hpf; Bilirubin,Urine Negative (Negative); Blood,Urine Moderate (Negative); Budding Yeast,Urine Moderate /hpf; Color,Urine Yellow; Glucose,Urine (UA) Negative (Negative); Ketones,Urine Negative (Negative); Leukocyte Esterase,Urine Large (Negative); Mucus,Urine Occasional /hpf; Nitrite,Urine Negative (Negative); PH, Urine 5.5 (5.0-8.0); Protein,Urine 1+ (Negative); RBC,Urine >182 /hpf (0-5); Specific Gravity,Urine 1.017 (1.001-1.035); Urobilinogen,Urine <2.0 mg/dL (<2.0); WBC,Urine >182 /hpf (0-5)
[2017-08-31] MEDS: POTASSIUM CHLORIDE 8 MEQ PO SCH (18:00)
--- NOTE | 2017-08-31 22:45 | HP ---
HISTORY AND PHYSICAL CHIEF COMPLAINT: A 66-year-old white female admitted from the emergency room with GI bleed. Two units of packed red blood cells have been ordered. Hemoglobin is up to 9.1. She has a history uterine cancer, lung cancer, left lower lobe resection, history of C. difficile, melanoma, skin cancer, history of DVT, portal vein thrombosis, bilateral mastectomy, status post right femoral right hip fracture. She has had a PICC line for IV antibiotics. REVIEW OF SYSTEM: Selective point review of systems is negative. 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 diff. SURGERIES: Adenoidectomy, appendectomy, breast surgery, cholecystectomy, hysterectomy, orthopedic surgery, tonsillectomy, mastectomy, left lower lobe lobectomy. FAMILY HISTORY: Father with complications from body. Mother with stomach problems, emphysema. HOME MEDICATIONS: 1. Levothyroxine. 2. Lexapro. 3. Vitamin D. 4. Cawood. 5. Multivitamin. 6. Ecotrin. 7. Dulcolax. 8. Colace. 9. Iron sulfate. 10.Lasix. 11.Macrodantin for UTI. 12.Zofran. 13.Potassium chloride. 14.Sodium bicarb. 15.Magnesium hydroxide. ALLERGIES: Are multiple, include VANESSA INHIBITORS, BACLOFEN, CEFEPIME, CEPHALEXIN, CIPRO, CLINDAMYCIN, ERYTHROMYCIN, HEPARIN, LISINOPRIL, LORAZEPAM, FLAGYL, SHELLFISH, SULFA, STEROIDS. PHYSICAL EXAM: Respiratory rate 18-20, pulse 70s-80s, temp 97-98, blood pressure 150s-160s over 60s- 70s. O2 90%-98%. Skin is normal. GI: Positive bowel sounds. No rebound. HEART: Regular rate and rhythm. ENT: External ear canals within normal limits. LUNGS: No wheezing, rhonchi. NEUROLOGIC: Cranial nerves are intact. PSYCH: Fair mood and affect. Hemoglobin 7.7, BUN 28, creatinine 1.4. Hemoglobin 7.7. ASSESSMENT: 1. Upper gastrointestinal bleeding. 2. Acute on chronic anemia. 3. Pleural effusion. 4. Subsegmental basilar atelectasis. 5. History of hip fracture, femoral fracture. 6. No infection of percutaneously inserted central catheter line. 7. Chronic renal failure 2-3. Type and cross 2 units of packed red blood cells. Proton pump inhibitors. Transfuse blood. GI consult. Pleural effusion due to fluid overload. Continue current treatment. Monitor for GI bleeding. Please see further orders. MMODL / IJN: [id number] /
[2017-09-01 06:41] LABS: Anisocytosis Slight; Basophils % (A) 1 %; Eosinophils # (A) 0.5 k/uL (0-0.7); Eosinophils % (A) 10 %; HCT 29.1 % (34.0-46.0); Hypochromasia Moderate; Lymphocytes # (A) 0.8 k/uL (1.0-4.8); Lymphocytes % (A) 18 %; MCH 27.2 pg (25.0-35.0); MCV 87.6 fL (80.0-100.0); Mean Platelet Volume 7.2; Monocytes # (A) 0.3 k/uL (0-1.0); Monocytes % (A) 7 %; Neutrophils # (A) 2.8 k/uL (1.3-7.7); Neutrophils % (A) 63 %; Platelet Count 222 k/uL (150-450); Poikilocytosis Slight; RBC 3.32 m/uL (3.80-5.40); RDW 16.5 % (11.5-15.5); WBC 4.5 k/uL (3.8-10.6)
[2017-09-01] MEDS: LEVOTHYROXINE 50 MCG TAB PO SCH (06:46)
[2017-09-01] MEDS: FUROSEMIDE 20 MG TAB PO SCH (06:46)
[2017-09-01 06:54] LABS: Albumin 2.3 g/dL (3.5-5.0); Calcium 7.8 mg/dL (8.4-10.2); Magnesium 1.4 mg/dL (1.6-2.3); Potassium 4.1 mmol/L (3.5-5.1); Total Bilirubin 0.4 mg/dL (0.2-1.3); Total Protein 5.3 g/dL (6.3-8.2)
[2017-09-01] MEDS: CALCIUM CARBONATE 500 MG CHEWABLE PO SCH ×3 (08:30→21:37)
[2017-09-01] MEDS: SODIUM BICARBONATE TAB 650 MG TAB PO SCH (08:30)
[2017-09-01] MEDS: FERROUS SULFATE 325 MG TAB PO SCH ×2 (08:30→17:22)
[2017-09-01] MEDS: ESCITALOPRAM 20 MG TAB PO SCH (08:30)
[2017-09-01] MEDS: HYDROcodone/APAP 10-325MG 1 EACH TAB PO PRN ×4 (08:30→21:37)
[2017-09-01] MEDS: NITROFURANTOIN MONOHYD/M-CRYST 100 MG CAP PO SCH ×2 (08:30→21:37)
[2017-09-01] MEDS: DOCUSATE 100 MG CAP PO SCH ×2 (08:32→17:22)
[2017-09-01] MEDS: PANTOPRAZOLE 40 MG/10 ML VIAL IV SCH (08:40)
[2017-09-01] MEDS: MAGNESIUM SULFATE-D5W PMX 1 GM in DEXTROSE/WATER 1 100ML.BAG IVPB SCH ×2 (12:08→14:22)
--- NOTE | 2017-09-01 12:09 | P.PN ---
Subjective Patient is seen in follow-up for chronic any disease. Patient has chronic any disease stage III secondary to obstructive uropathy with baseline creatinine in the range of 1.2-1.4. Creatinine is 1.35 today. She has history of hydronephrosis with bilateral ureteral stents. She presented with bloody bowel movement. She hasn't had bloody stool since admission. Hemoglobin is 9.0 today. Vital signs are stable. General: The patient appeared well nourished and normally developed. HEENT: Head exam is unremarkable. Neck is without jugular venous distension. LUNGS: Lungs are clear to auscultation and percussion. Breath sounds decreased. HEART: Rate and Rhythm are regular. First and second heart sounds normal. No murmurs, rubs or gallops. ABDOMEN: Abdominal exam reveals normal bowel sounds. Non-tender and non- distended. No evidence of peritonitis. EXTREMITITES: No clubbing, cyanosis, or edema. Objective - Vital Signs Vital signs: Vital Signs Temp 99.1 F 09/01/17 06:17 Pulse 72 09/01/17 06:17 Resp 17 09/01/17 06:17 BP 129/60 09/01/17 06:17 Pulse Ox 92 L 09/01/17 08:54 Intake & Output 08/31/17 09/01/17 09/01/17 18:59 06:59 18:59 Intake Total 310 Output Total 550 650 Balance -240 -650 Intake: Blood Product 310 Rc As-1 Unit 310 [id number] Output: Urine 550 650 Other: Voiding Method Indwelling Catheter Indwelling Catheter Indwelling Catheter # Bowel Movements 3 - Labs CBC & Chem 7: 09/01/17 06:30 09/01/17 06:30 Labs: Abnormal Lab Results - Last 24 Hours (Table) 08/31/17 08/31/17 09/01/17 Range/Units 16:30 16:30 06:30 RBC 3.32 L (3.80-5.40) m/uL Hgb 9.1 L (11.4-16.0) gm/dL Hct 29.4 L (34.0-46.0) % RDW 16.3 H (11.5-15.5) % Lymphocytes # 0.5 L (1.0-4.8) k/uL BUN 22 H (7-17) mg/dL Creatinine 1.35 H (0.52-1.04) mg/dL Calcium 7.8 L (8.4-10.2) mg/dL Magnesium 1.4 L (1.6-2.3) mg/dL Alkaline Phosphatase 184 H (38-126) U/L Total Protein 5.3 L (6.3-8.2) g/dL Albumin 2.3 L (3.5-5.0) g/dL Urine Appearance Turbid H (Clear) Urine Protein 1+ H (Negative) Urine Blood Moderate H (Negative) Ur Leukocyte Esterase Large H (Negative) Urine RBC >182 H (0-5) /hpf Urine WBC >182 H (0-5) /hpf Urine WBC Clumps Many H (None) /hpf Urine Bacteria Occasional H (None) /hpf Urine Mucus Occasional H (None) /hpf Urine Yeast (Budding) Moderate H (None) /hpf 09/01/17 Range/Units 06:30 RBC 3.32 L (3.80-5.40) m/uL Hgb 9.0 L (11.4-16.0) gm/dL Hct 29.1 L (34.0-46.0) % RDW 16.5 H (11.5-15.5) % Lymphocytes # 0.8 L (1.0-4.8) k/uL BUN (7-17) mg/dL Creatinine (0.52-1.04) mg/dL Calcium (8.4-10.2) mg/dL Magnesium (1.6-2.3) mg/dL Alkaline Phosphatase (38-126) U/L Total Protein (6.3-8.2) g/dL Albumin (3.5-5.0) g/dL Urine Appearance (Clear) Urine Protein (Negative) Urine Blood (Negative) Ur Leukocyte Esterase (Negative) Urine RBC (0-5) /hpf Urine WBC (0-5) /hpf Urine WBC Clumps (None) /hpf Urine Bacteria (None) /hpf Urine Mucus (None) /hpf Urine Yeast (Budding) (None) /hpf Microbiology - Last 24 Hours (Table) 08/31/17 16:30 Urine Culture - Preliminary Urine,Catheterized Assessment and Plan Plan: Assessment: 1. Chronic kidney disease stage III secondary to obstructive uropathy. Baseline creatinine in the range of 1.2-1.4. GFR at baseline. 2. Acute blood loss anemia status post 2 units blood transfusion. Hemoglobin 9.0 today. Await GI input. Iron replete. 3. Hydronephrosis status post bilateral ureteral stents placement. She follows with urology. 4. Lower extremity edema maintained on Lasix 20 mg daily which can be continued. 5. Hypomagnesemia from poor oral intake. Plan: Avoid nephrotoxic agents and hypotensive episodes. Follow-up urine culture. Discontinue sodium bicarbonate. Replace magnesium. 2 g IV today. Repeat electrolytes in the morning. She will need to follow-up as an outpatient 2 weeks post discharge.
[2017-09-01] MEDS: MULTIVITAMINS, THERA 1 EACH TAB PO SCH (17:22)
[2017-09-01] MEDS: CHOLECALCIFEROL 1,000 UNIT TAB PO SCH (17:22)
[2017-09-01] MEDS: POTASSIUM CHLORIDE 8 MEQ PO SCH (17:23)
[2017-09-02 00:29] VITALS: RESP 18
[2017-09-02] MEDS: FUROSEMIDE 20 MG TAB PO SCH (06:23)
[2017-09-02] MEDS: LEVOTHYROXINE 50 MCG TAB PO SCH (06:23)
[2017-09-02] MEDS: HYDROcodone/APAP 10-325MG 1 EACH TAB PO PRN ×4 (06:25→18:10)
[2017-09-02 06:30] VITALS: BP 138/72; PULSE 83; TEMP 99.3
--- NOTE | 2017-09-02 07:28 | P.CONS ---
History of Present Illness - Reason for Consult Consult date: 09/01/17 GI bleed - History of Present Illness The patient is a 66-year-old female who was admitted through the emergency room where she presented from the extended care facility because of dark stools and rectal bleeding. The patient is a hemoglobin was as low as 7.9 and she has received 2 units of packed cells and her hemoglobin is now up to 9.1. The patient has significant medical history which includes history of breast, uterine and lung cancer as well as skin cancer. She received antibiotics via PICC line. I have evaluated her back in September 2014 when she had rectal bleeding and I performed both an upper endoscopy which revealed mild gastritis and a colonoscopy that revealed radiation proctitis. The patient denies dysphagia, odynophagia, hematemesis. Review of Systems Constitutional: Denies fever, chills, sweats, weight gain, or loss. HEENT: Negative for migraines, blurred vision or loss, earaches, drainage, tinnitus, oral mucosal lesions, dysphagia, or odynophagia. CARDIAC: Negative for chest pain, arrhythmias, or palpitation. RESPIRATORY: Negative for shortness of breath, hemoptysis, cough, or sputum production. GI: See HPI for pertinent findings. : Negative for hematuria, urgency, frequency, polyuria, or dysuria. MUSCULOSKELETAL: Negative for muscle aches, swelling, arthritis, and arthralgias. NEUROLOGIC: Negative for stroke or TIA. ENDOCRINE: Negative for thyroid problems. SKIN: Negative for rash or itching. PSYCHIATRIC: Negative history for depression and anxiety Past Medical History Past Medical History: Blood Disorder, Cancer, Deep Vein Thrombosis (DVT), GI Bleed, Liver Disease, Respiratory Disorder Additional Past Medical History / Comment(s): 09-10-[address] [facility] with c/o blood in urine and rectal bleeding, DX GI BLEED AND UTI. other hx: Breast Ca x2 ; Skin Ca squamous and melanoma; uterine ca, lung cancer LOWER LEFT LOBE 70%, c- diff- 08-13-14 snd feb 2017, on xarelto for dvt and portal vein thrombosis. 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 History of Any Multi-Drug Resistant Organisms: C-DIFF Year Discovered:: 08/13/14 and MDRO Source:: stool Past Surgical History: Adenoidectomy, Appendectomy, Breast Surgery, Cholecystectomy, Hysterectomy, Orthopedic Surgery, Tonsillectomy Additional Past Surgical History / Comment(s): Mastectomy bilateral; Left lower lobectomy 70%; exploratory laparotomy, LASER SX AT [facility]ANOMA- CURRENTLY HAS 100 SPOTS THAT THEY ARE WATCHING REMMOVED 4 SO FAR.lasik eye sx, past "abcess on back(ecoli) pt stated they had to open a channel,removed 2 ribs and some muscle and it was open to drain to 18 months". surgical repair to Right wrist, right femur, and right hip in 2018 Additional Past Anesthesia/Blood Transfusion Reaction / Comm: PAST BLOOD TRANSFUSIONS- NO COMPLICATIONS Smoking Status: Former smoker - Past Family History Father Additional Family Medical History / Comment(s): FROM COMPLICATIONS OF SCHRAPNEL IN BODY Mother Additional Family Medical History / Comment(s): STOMACH PROBLEMS, EMPHYSEMA Medications and Allergies Home Medications Medication Instructions Recorded Confirmed Type Levothyroxine Sodium [Synthroid] 50 mcg PO DAILY@0600 07/04/17 08/30/17 History Escitalopram Oxalate [Lexapro] 20 mg PO DAILY 07/06/17 08/30/17 History Calcium Carbonate [Tums] 500 mg PO TID chew 07/09/17 08/30/17 Rx Cholecalciferol [Vitamin D3] 2,000 unit PO DAILY@169907/22/17 08/30/17 History HYDROcodone/APAP 10-325MG [[place] 1 tab PO Q4HR PRN 07/22/17 08/30/17 History 10-325] Multivitamins, Thera [Multivitamin 1 tab PO DAILY@169907/22/17 08/30/17 History (formulary)] Acetaminophen Tab [Tylenol] 650 mg PO Q6HR PRN tab 07/26/17 08/30/17 Rx Aspirin EC [Ecotrin] 325 mg PO DAILY@169908/30/17 08/30/17 History Bisacodyl [Dulcolax] 10 mg RECTAL DAILY PRN 08/30/17 08/30/17 History Docusate [Colace] 100 mg PO BID@0800,1700 08/30/17 08/30/17 History Ferrous Sulfate [Feosol] 325 mg PO BID@0800,0 08/30/17 08/30/17 History Furosemide [Lasix] 20 mg PO DAILY@0600 08/30/17 08/30/17 History Magnesium Hydroxide [Milk of 2,400 mg PO DAILY PRN 08/30/17 08/30/17 History Magnesia] Nitrofurantoin Macrocrystal 100 mg PO BID 08/30/17 08/30/17 History [Macrodantin] Ondansetron [Zofran] 4 mg PO Q6H PRN 08/30/17 08/30/17 History Potassium Chloride 8 meq PO DAILY@1700 08/30/17 08/30/17 History Sodium Bicarbonate Tab 650 mg PO BID@0800,1700 08/30/17 08/30/17 History Allergies Allergy/AdvReac Type Severity Reaction Status Date / Time VANESSA Inhibitors Allergy Unknown Verified 08/30/17 11:04 baclofen Allergy Confusion Verified 08/30/17 11:04 cefepime HCl [From Maxipime] Allergy Rash/Hives Verified 08/30/17 11:04 cephalexin Allergy Rash/Hives Verified 08/30/17 11:04 ciprofloxacin Allergy Rash/Hives Verified 08/30/17 11:04 clindamycin Allergy Nausea & Verified 08/30/17 11:04 Vomiting erythromycin base Allergy Rash/Hives Verified 08/30/17 11:04 heparin Allergy Unknown Verified 08/30/17 11:04 lisinopril [From Zestril] Allergy Unknown Verified 08/30/17 11:04 lorazepam [From Ativan] Allergy Confusion Verified 08/30/17 11:04 metronidazole [From Flagyl] Allergy Nausea & Verified 08/30/17 11:04 Vomiting penicillin G Allergy Rash/Hives Verified 08/30/17 11:04 shellfish derived [Shellfish] Allergy Swelling Verified 08/30/17 11:04 Sulfa (Sulfonamide Allergy Swelling Verified 08/30/17 11:04 Antibiotics) steroids Allergy Unknown Uncoded 07/22/17 22:34 Physical Exam Vitals: Vital Signs Temp Pulse Resp BP Pulse Ox 09/01/17 08:54 92 L 09/01/17 06:17 99.1 F 72 17 129/60 92 L 08/31/17 23:00 98.3 F 70 17 123/59 96 08/31/17 15:00 98.9 F 76 20 119/59 95 Intake and Output 08/31/17 09/01/17 09/01/17 22:59 06:59 14:59 Output Total 200 450 Balance -200 -450 Output: Urine 200 450 Other: Voiding Method Indwelling Catheter Indwelling Catheter General appearance: The patient is alert, oriented, in no acute distress. HET: Head is normocephalic and atraumatic. Pupils are equal and reactive. Oropharynx is clear without lesions. Neck: Supple without lymphadenopathy. Trachea midline. Heart: S1 S2. Regular rate and rhythm. Lungs: No crackles or wheezes are heard. No dullness to percussion. Abdomen: Soft, minimal tenderness in the epigastric area, nondistended with bowel sounds. No peritoneal signs. No palpable organomegaly or masses. Extremities: Normal skin color and turgor. No cyanosis, rash, ulceration, clubbing, or edema. Radial and pedal pulses are 2/4 bilaterally. Neurological: No focal deficits. Strength and sensation are grossly intact. Results CBC & Chem 7: 09/01/17 06:30 09/01/17 06:30 Labs: Abnormal Lab Results - Last 24 Hours (Table) 08/31/17 08/31/17 09/01/17 Range/Units 16:30 16:30 06:30 RBC 3.32 L (3.80-5.40) m/uL Hgb 9.1 L (11.4-16.0) gm/dL Hct 29.4 L (34.0-46.0) % RDW 16.3 H (11.5-15.5) % Lymphocytes # 0.5 L (1.0-4.8) k/uL BUN 22 H (7-17) mg/dL Creatinine 1.35 H (0.52-1.04) mg/dL Calcium 7.8 L (8.4-10.2) mg/dL Magnesium 1.4 L (1.6-2.3) mg/dL Alkaline Phosphatase 184 H (38-126) U/L Total Protein 5.3 L (6.3-8.2) g/dL Albumin 2.3 L (3.5-5.0) g/dL Urine Appearance Turbid H (Clear) Urine Protein 1+ H (Negative) Urine Blood Moderate H (Negative) Ur Leukocyte Esterase Large H (Negative) Urine RBC >182 H (0-5) /hpf Urine WBC >182 H (0-5) /hpf Urine WBC Clumps Many H (None) /hpf Urine Bacteria Occasional H (None) /hpf Urine Mucus Occasional H (None) /hpf Urine Yeast (Budding) Moderate H (None) /hpf 09/01/17 Range/Units 06:30 RBC 3.32 L (3.80-5.40) m/uL Hgb 9.0 L (11.4-16.0) gm/dL Hct 29.1 L (34.0-46.0) % RDW 16.5 H (11.5-15.5) % Lymphocytes # 0.8 L (1.0-4.8) k/uL BUN (7-17) mg/dL Creatinine (0.52-1.04) mg/dL Calcium (8.4-10.2) mg/dL Magnesium (1.6-2.3) mg/dL Alkaline Phosphatase (38-126) U/L Total Protein (6.3-8.2) g/dL Albumin (3.5-5.0) g/dL Urine Appearance (Clear) Urine Protein (Negative) Urine Blood (Negative) Ur Leukocyte Esterase (Negative) Urine RBC (0-5) /hpf Urine WBC (0-5) /hpf Urine WBC Clumps (None) /hpf Urine Bacteria (None) /hpf Urine Mucus (None) /hpf Urine Yeast (Budding) (None) /hpf Microbiology - Last 24 Hours (Table) 08/31/17 16:30 Urine Culture - Preliminary Urine,Catheterized Assessment and Plan Assessment: Anemia likely on the bases of upper GI bleeding. The possibility of rectal bleeding related to her radiation proctitis should be kept in mind. Plan: I agree with your current management. Will monitor closely and consider an upper endoscopy and possible colonoscopy in the next 24-48 hours based on her course.
--- NOTE | 2017-09-02 08:23 | P.PN ---
Subjective Progress Note Date: 09/01/17 (Late entry note) Principal diagnosis: Acute GI bleed, acute on chronic anemia, right-sided small pleural effusion, subsegmental basal atelectasis, recent hip fracture femoral fracture and wrist fracture, chronic renal failure stage III, history of lung cancer 09/01/2017, patient seen eval examined during the rounds clinically patient is doing well no episodes of GI bleed has been noted patient has been tolerating by mouth well denies any abdominal pain still have some right wrist pain and right leg pain related to prior fractures, labs reviewed hemoglobin is up to 10.8 after transfusion is still have evidence of microcytic anemia to be evaluated further as per primary on outpatient setting 08/31/2017, patient seen eval reexamined during the rounds clinically has been doing well she had 2 bowel movement earlier today they were regular normal color no active bleeding is seen however patient hemoglobin did drop down require 2 units of packed RBC today hemoglobin is over 8 now hemodynamically stable denies any chest pain or abdominal pain labs reviewed medications reviewed 66-year-old female who was seen evaluated examined in the fourth floor patient was admitted into the emergency department with problems associated with dark stool noted an [facility] care facility where she was admitted for rehabilitation purposes patient had a complex medical history associated with uterine cancer lung cancer left lower lobe resection history of C. difficile melanoma skin cancer, with history of deep venous thrombosis and portal vein thrombosis has been on Sourav in the past, patient is status post a bilateral mastectomy as well as left lower lobe resection over 70% history of exploratory laparoscopy in the past patient had a fall about 6 weeks ago was hospitalized by and under orthopedic service for right flank wrist fracture right femoral and right hip fracture for details refer to the operative notes and prior H&P and consultations. Patient was discharged with a PICC line for antibiotics and IV axis to extended care facility PICC line has been there for last 4 weeks appears to have thrombosed as noted and has been obtained but infusions were being performed patient has been dizzy lightheaded as well I was asked to evaluate this patient if needs a central line and also patient will need laboratory workup, data predominantly obtained from the chart as well as the patient, patient has been complaining abdominal discomfort for last 1 day as well as on arrival noted to have hemoglobin of only 7.7 other significant labs include BUN/creatinine is 28 and 1.4 Objective - Vital Signs Vital signs: Vital Signs Temp 99.3 F 09/02/17 06:30 Pulse 83 09/02/17 06:30 Resp 18 09/02/17 06:30 BP 138/72 09/02/17 06:30 Pulse Ox 91 L 09/02/17 06:30 Intake & Output 09/01/17 09/02/17 09/02/17 18:59 06:59 18:59 Intake Total 800 Output Total 1100 650 Balance -1100 150 Intake: Oral 800 Output: Urine 1100 650 Other: Voiding Method Indwelling Catheter Indwelling Catheter - Exam Skin: Skin is warm and dry and no rashes or lesions are noted. Eye: Pupils are equal, round and reactive to light, extra-ocular movements are intact; there is normal conjunctiva bilaterally. Ears, nose, mouth and throat: There are moist mucous membranes and no oral lesions. Neck: The neck is supple, there is no tenderness or JVD. Cardiovascular: There is a regular rate and rhythm. No murmur, rub or gallop is appreciated. Respiratory: To auscultation bilateral, no wheezing no rhonchi no distress respiratory flores noticed Gastrointestinal: Mildly tender in epigastric area, positive bowel sounds no guarding no rebounds Back: There is no tenderness to palpation in the midline. There is no obvious deformity. Musculoskeletal: Normal ROM, no tenderness, There is no pedal edema. There is no calf tenderness or swelling. No cords were appreciated. Neurological: CN II-XII intact, Cranial nerves III through XII are intact. There are no obvious motor or sensory deficits. Coordination appears grossly intact. Speech is normal. Psychiatric: Cooperative, appropriate mood & affect, normal judgment. - Labs CBC & Chem 7: 09/01/17 06:30 09/01/17 06:30 Labs: Microbiology - Last 24 Hours (Table) 08/31/17 16:30 Urine Culture - Preliminary Urine,Catheterized Gram Neg Bacilli Assessment and Plan Assessment: GI bleed appears to be upper GI presenting as lower GI bleed, appears to have resolved no evidence of active bleeding Acute on chronic anemia, microcytic Right-sided pleural effusion small we'll monitor observe an outpatient setting Subsegmental basal atelectasis History of hip fracture and femoral fracture Nonfunctioning/malfunctioning PICC line 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 Plan: Hemoglobin monitoring if hemoglobin drops less than 7 type crossmatch and transfuse 1-2 packed RBC If any evidence of active GI bleeding is seen than transfer patient to the ICU for now can be managed on the floor Given poor peripheral access and lack of inability to obtain samples and do labs and transfuse blood as needed we'll do a triple-lumen catheter and DC the PICC line Proton pump inhibitor Continue home medications GI consult Other recommendations pending plan of care as per clinical response of the patient Pleural effusion appears to be related to volume overload and third spacing small in amount will monitor observe no plans for thoracentesis Time with Patient: Greater than 30
--- NOTE | 2017-09-02 08:26 | P.PN ---
Subjective Progress Note Date: 09/02/17 Principal diagnosis: Acute GI bleed, acute on chronic anemia, right-sided small pleural effusion, subsegmental basal atelectasis, recent hip fracture femoral fracture and wrist fracture, chronic renal failure stage III, history of lung cancer 09/02/2017, patient seen eval examined during the rounds clinically doing well awake and alert tolerating by mouth well denies any abdominal pain patient has been evaluated by GI services being monitor observe patient is being considered for discharge later on today would recommend to DC the central line 09/01/2017, patient seen eval examined during the rounds clinically patient is doing well no episodes of GI bleed has been noted patient has been tolerating by mouth well denies any abdominal pain still have some right wrist pain and right leg pain related to prior fractures, labs reviewed hemoglobin is up to 10.8 after transfusion is still have evidence of microcytic anemia to be evaluated further as per primary on outpatient setting 08/31/2017, patient seen eval reexamined during the rounds clinically has been doing well she had 2 bowel movement earlier today they were regular normal color no active bleeding is seen however patient hemoglobin did drop down require 2 units of packed RBC today hemoglobin is over 8 now hemodynamically stable denies any chest pain or abdominal pain labs reviewed medications reviewed 66-year-old female who was seen evaluated examined in the fourth floor patient was admitted into the emergency department with problems associated with dark stool noted an [facility] care facility where she was admitted for rehabilitation purposes patient had a complex medical history associated with uterine cancer lung cancer left lower lobe resection history of C. difficile melanoma skin cancer, with history of deep venous thrombosis and portal vein thrombosis has been on Sourav in the past, patient is status post a bilateral mastectomy as well as left lower lobe resection over 70% history of exploratory laparoscopy in the past patient had a fall about 6 weeks ago was hospitalized by and under orthopedic service for right flank wrist fracture right femoral and right hip fracture for details refer to the operative notes and prior H&P and consultations. Patient was discharged with a PICC line for antibiotics and IV axis to extended care facility PICC line has been there for last 4 weeks appears to have thrombosed as noted and has been obtained but infusions were being performed patient has been dizzy lightheaded as well I was asked to evaluate this patient if needs a central line and also patient will need laboratory workup, data predominantly obtained from the chart as well as the patient, patient has been complaining abdominal discomfort for last 1 day as well as on arrival noted to have hemoglobin of only 7.7 other significant labs include BUN/creatinine is 28 and 1.4 Objective - Vital Signs Vital signs: Vital Signs Temp 99.3 F 09/02/17 06:30 Pulse 83 09/02/17 06:30 Resp 18 09/02/17 06:30 BP 138/72 09/02/17 06:30 Pulse Ox 91 L 09/02/17 06:30 Intake & Output 09/01/17 09/02/17 09/02/17 18:59 06:59 18:59 Intake Total 800 Output Total 1100 650 Balance -1100 150 Intake: Oral 800 Output: Urine 1100 650 Other: Voiding Method Indwelling Catheter Indwelling Catheter - Exam Skin: Skin is warm and dry and no rashes or lesions are noted. Eye: Pupils are equal, round and reactive to light, extra-ocular movements are intact; there is normal conjunctiva bilaterally. Ears, nose, mouth and throat: There are moist mucous membranes and no oral lesions. Neck: The neck is supple, there is no tenderness or JVD. Cardiovascular: There is a regular rate and rhythm. No murmur, rub or gallop is appreciated. Respiratory: To auscultation bilateral, no wheezing no rhonchi no distress respiratory flores noticed Gastrointestinal: Mildly tender in epigastric area, positive bowel sounds no guarding no rebounds Back: There is no tenderness to palpation in the midline. There is no obvious deformity. Musculoskeletal: Normal ROM, no tenderness, There is no pedal edema. There is no calf tenderness or swelling. No cords were appreciated. Neurological: CN II-XII intact, Cranial nerves III through XII are intact. There are no obvious motor or sensory deficits. Coordination appears grossly intact. Speech is normal. Psychiatric: Cooperative, appropriate mood & affect, normal judgment. - Labs CBC & Chem 7: 09/01/17 06:30 09/01/17 06:30 Labs: Microbiology - Last 24 Hours (Table) 08/31/17 16:30 Urine Culture - Preliminary Urine,Catheterized Gram Neg Bacilli Assessment and Plan Assessment: GI bleed appears to be upper GI presenting as lower GI bleed, appears to have resolved no evidence of active bleeding Acute on chronic anemia, microcytic Right-sided pleural effusion small we'll monitor observe an outpatient setting Subsegmental basal atelectasis History of hip fracture and femoral fracture Nonfunctioning/malfunctioning PICC line 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 Plan: Hemoglobin monitoring further evaluation of the GI bleed and/or or microcytic anemia on outpatient setting Proton pump inhibitor Continue home medications GI consult Other recommendations pending plan of care as per clinical response of the patient Pleural effusion appears to be related to volume overload and third spacing small in amount will monitor observe no plans for thoracentesis Further evaluation right-sided small pleural effusion in outpatient setting Time with Patient: Greater than 30
[2017-09-02] MEDS: PANTOPRAZOLE 40 MG/10 ML VIAL IV SCH (08:28)
[2017-09-02] MEDS: FERROUS SULFATE 325 MG TAB PO SCH ×2 (08:28→18:07)
[2017-09-02] MEDS: ESCITALOPRAM 20 MG TAB PO SCH (08:28)
[2017-09-02] MEDS: DOCUSATE 100 MG CAP PO SCH ×3 (08:28→18:06)
[2017-09-02] MEDS: NITROFURANTOIN MONOHYD/M-CRYST 100 MG CAP PO SCH (08:28)
[2017-09-02] MEDS: CHOLECALCIFEROL 1,000 UNIT TAB PO SCH (08:28)
[2017-09-02] MEDS: CALCIUM CARBONATE 500 MG CHEWABLE PO SCH ×2 (08:28→18:07)
--- NOTE | 2017-09-02 16:08 | PN ---
PROGRESS NOTE Patient is seen for followup for acute kidney injury. Her renal function is slightly improved. Serum creatinine down to 1.3-1.4 mg per DL. The patient does have underlying CKD with baseline creatinine about 1.2-1.4 with the bilateral ureteral stents and hydronephrosis. Overall, patient is doing well. She denies any significant complaints. PHYSICAL EXAMINATION: Blood pressure is 138/72, heart rate 83 per minute. She is afebrile. Examination of the heart S1, S2. Examination of the lungs bilateral breath sounds are heard. Abdomen is soft, nontender. Examination of lower extremity shows no evidence of edema. BRAILLE TYPIST exam is grossly intact. LABS: Sodium 141, potassium 4. BUN 22, serum creatinine 1.35. Hemoglobin 9.3 g/dL. ASSESSMENT: 1. Chronic kidney disease with baseline creatinine 1.2-1.4 mg/dL secondary to obstructive uropathy with bilateral hydronephrosis and ureteral stent. Renal function currently not off from baseline. The patient is maintained on a small dose of oral Lasix. She is not on any IV fluids. No nephrotoxic agents on board. 2. Acute blood loss anemia status post 2 units packed RBCs transfusion, Gastroenterology on consult. 3. Hydronephrosis with bilateral ureteral stents, which is chronic, being followed by Urology. 4. Hypomagnesemia status post replacement. PLAN: Continue current dose of Lasix. Repeat labs in a.m. MMODL / IJN: [id number] /
[2017-09-02] MEDS: POTASSIUM CHLORIDE 8 MEQ PO SCH (17:46)
[2017-09-02] MEDS: MULTIVITAMINS, THERA 1 EACH TAB PO SCH (18:07)
== END 2017-09-02 18:37 | disposition home health service (06) | DRG 812 ==
LOC: EC 09:31 → 4MS4W 13:38
PROVIDERS: ADMIT Family Medicine; ATTEND Family Medicine
PROC: 30230N1 Transfusion of Nonautologous Red Blood Cells into Peripheral Vein, Open Approach (ICD-10-PCS; principal; 2017-08-30)
PROC: 02H633Z Insertion of Infusion Device into Right Atrium, Percutaneous Approach (ICD-10-PCS; 2017-08-30)
DX: D62 Acute posthemorrhagic anemia (principal); J90 Pleural effusion, not elsewhere classified; J98.11 Atelectasis; N17.9 Acute kidney failure, unspecified; T82.514A Breakdown (mechanical) of infusion catheter, initial encounter; N13.30 Unspecified hydronephrosis; K92.2 Gastrointestinal hemorrhage, unspecified; E83.42 Hypomagnesemia; E87.70 Fluid overload, unspecified; N18.3 Chronic kidney disease, stage 3 (moderate); K62.7 Radiation proctitis; K74.69 Other cirrhosis of liver; Z79.82 Long term (current) use of aspirin; Z79.899 Other long term (current) drug therapy; Z79.890 Hormone replacement therapy; Z90.710 Acquired absence of both cervix and uterus; Z90.13 Acquired absence of bilateral breasts and nipples; Z87.891 Personal history of nicotine dependence; Z87.81 Personal history of (healed) traumatic fracture; Z86.718 Personal history of other venous thrombosis and embolism; Z85.820 Personal history of malignant melanoma of skin; Z85.42 Personal history of malignant neoplasm of other parts of uterus; Z85.3 Personal history of malignant neoplasm of breast; Z85.828 Personal history of other malignant neoplasm of skin; Z85.118 Personal history of other malignant neoplasm of bronchus and lung; Z88.2 Allergy status to sulfonamides; Z88.8 Allergy status to other drugs, medicaments and biological substances; Z88.1 Allergy status to other antibiotic agents; Z88.0 Allergy status to penicillin; Z91.013 Allergy to seafood; Z90.49 Acquired absence of other specified parts of digestive tract; Z92.3 Personal history of irradiation; Z90.2 Acquired absence of lung [part of]; Z82.5 Family history of asthma and other chronic lower respiratory diseases
CPT/HCPCS: 36415; 71045; 74176; 80053; 81001; 82272; 82550; 82553; 82728; 83540; 83550; 83605; 83735; 84484; 85025; 86850; 86900; 86901; 86920; 87077; 87086; 87186; 94760; 96361; 96374; 96375; 99285

== ENCOUNTER → 2018-03-19 | Outpatient (CLI) | payer MEDICARE, OTHER ==
[2018-03-19 15:45] LABS: HCT 35.3 % (34.0-46.0); HGB 10.8 gm/dL (11.4-16.0); Hypochromasia Marked; MCH 28.9 pg (25.0-35.0); MCHC 30.7 g/dL (31.0-37.0); MCV 94.3 fL (80.0-100.0); Mean Platelet Volume 6.7; Platelet Count 208 k/uL (150-450); RBC 3.75 m/uL (3.80-5.40); RDW 14.2 % (11.5-15.5)
[2018-03-19 20:51] LABS: Anion Gap 11.1 mmol/L (4.00-12.00); Carbon Dioxide 21.9 mmol/L (21.6-31.8); Potassium 4.6 mmol/L (3.5-5.5)
== END | disposition home or self-care (01) ==
LOC: LABWHC1 14:46
PROVIDERS: ATTEND Family Medicine
DX: N39.0 Urinary tract infection, site not specified (principal); N18.9 Chronic kidney disease, unspecified; D63.1 Anemia in chronic kidney disease
CPT/HCPCS: 36415; 80051; 82565; 84520; 85027; 87086

== ENCOUNTER → 2018-04-15 | Outpatient (CLI) | payer MEDICARE, OTHER ==
[2018-04-15 15:17] LABS: Basophils % (A) 1 %; Eosinophils # (A) 0.1 k/uL (0-0.7); Eosinophils % (A) 2 %; HCT 34.9 % (34.0-46.0); HGB 10.2 gm/dL (11.4-16.0); Hypochromasia Marked; Lymphocytes # (A) 1.1 k/uL (1.0-4.8); Lymphocytes % (A) 21 %; MCH 26.9 pg (25.0-35.0); MCHC 29.1 g/dL (31.0-37.0); MCV 92.2 fL (80.0-100.0); Mean Platelet Volume 7.2; Monocytes # (A) 0.3 k/uL (0-1.0); Monocytes % (A) 6 %; Neutrophils # (A) 3.5 k/uL (1.3-7.7); Neutrophils % (A) 68 %; Platelet Count 217 k/uL (150-450); RBC 3.78 m/uL (3.80-5.40); RDW 14.4 % (11.5-15.5); WBC 5.2 k/uL (3.8-10.6)
[2018-04-15 20:48] LABS: Anion Gap 11.5 mmol/L (4.00-12.00); Carbon Dioxide 19.5 mmol/L (21.6-31.8); Potassium 4.2 mmol/L (3.5-5.5)
== END ==
LOC: LABWHC1 14:30
PROVIDERS: ATTEND Family Medicine
DX: N17.0 Acute kidney failure with tubular necrosis (principal); I10 Essential (primary) hypertension
CPT/HCPCS: 36415; 80051; 82565; 84520; 85025

== ENCOUNTER → 2018-05-16 | Outpatient (CLI) | payer MEDICARE, OTHER ==
[2018-05-16 15:14] LABS: Appearance,Urine Turbid (Clear); Bacteria,Urine Many /hpf; Bilirubin,Urine Negative (Negative); Blood,Urine Large (Negative); Color,Urine Yellow; Glucose,Urine (UA) Negative (Negative); Ketones,Urine Negative (Negative); Leukocyte Esterase,Urine Large (Negative); Mucus,Urine Few /hpf; Nitrite,Urine Positive (Negative); PH, Urine 5.5 (5.0-8.0); Protein,Urine 2+ (Negative); RBC,Urine >182 /hpf (0-5); Specific Gravity,Urine 1.016 (1.001-1.035); Urobilinogen,Urine <2.0 mg/dL (<2.0); WBC,Urine >182 /hpf (0-5)
[2018-05-16 20:28] LABS: Anion Gap 9.9 mmol/L (4.00-12.00); Carbon Dioxide 20.1 mmol/L (21.6-31.8); Potassium 4.8 mmol/L (3.5-5.5)
[2018-05-16 20:41] LABS: T4, Free (Free Thyroxine) 1.2 ng/dL (0.80-1.80)
== END ==
LOC: LABWHC1 14:35
PROVIDERS: ATTEND Family Medicine
DX: E03.9 Hypothyroidism, unspecified (principal); N39.0 Urinary tract infection, site not specified; N19 Unspecified kidney failure
CPT/HCPCS: 36415; 80051; 81001; 82565; 84439; 84443; 84520; 87077; 87086; 87186

== ENCOUNTER 2018-06-04 09:27 | Inpatient (IN) | payer MEDICARE, OTHER ==
[2018-06-04 13:05] VITALS: BMI 23.6
[2018-06-04] MEDS: AZTREONAM 1 GM in SODIUM CHLORIDE 0.9% 50 ML IVPB SCH ×2 (14:27→22:16)
[2018-06-04] MEDS: SODIUM CHLORIDE 0.9% 1,000 ML IV SCH (14:27)
[2018-06-04 16:25] LABS: Basophils % (A) 1 %; Eosinophils # (A) 0.1 k/uL (0-0.7); Eosinophils % (A) 1 %; HCT 32.7 % (34.0-46.0); HGB 9.7 gm/dL (11.4-16.0); Hypochromasia Moderate; Lymphocytes # (A) 1.1 k/uL (1.0-4.8); Lymphocytes % (A) 23 %; MCH 26.9 pg (25.0-35.0); MCHC 29.6 g/dL (31.0-37.0); Mean Platelet Volume 7.9; Monocytes # (A) 0.4 k/uL (0-1.0); Monocytes % (A) 9 %; Neutrophils % (A) 64 %; Platelet Count 141 k/uL (150-450); RBC 3.59 m/uL (3.80-5.40); RDW 15.3 % (11.5-15.5); WBC 4.6 k/uL (3.8-10.6)
[2018-06-04 16:40] LABS: Albumin 2.8 g/dL (3.5-5.0); Calcium 8.5 mg/dL (8.4-10.2); Potassium 4.5 mmol/L (3.5-5.1); Total Bilirubin 0.8 mg/dL (0.2-1.3); Total Protein 6.4 g/dL (6.3-8.2)
[2018-06-04] MEDS: ASPIRIN 325 MG TAB PO SCH (16:54)
[2018-06-04] MEDS: HYDROcodone/APAP 10-325MG 1 EACH TAB PO SCH ×2 (16:54→21:11)
[2018-06-04] MEDS: MULTIVITAMINS, THERA 1 EACH TAB PO SCH (16:54)
[2018-06-04] MEDS: CHOLECALCIFEROL 1,000 UNIT TAB PO SCH (16:54)
[2018-06-04] MEDS: CALCIUM CARBONATE 500 MG CHEWABLE PO SCH ×2 (16:54→21:11)
[2018-06-04 18:01] LABS: Appearance,Urine Cloudy (Clear); Bacteria,Urine Many /hpf; Bilirubin,Urine Negative (Negative); Blood,Urine Moderate (Negative); Color,Urine Light Yellow; Glucose,Urine (UA) Negative (Negative); Ketones,Urine Negative (Negative); Leukocyte Esterase,Urine Large (Negative); Mucus,Urine Rare /hpf; Nitrite,Urine Positive (Negative); Protein,Urine Negative (Negative); RBC,Urine 47 /hpf (0-5); Specific Gravity,Urine 1.011 (1.001-1.035); Squamous Epithelial Cell,Urine 2 /hpf (0-4); Urobilinogen,Urine <2.0 mg/dL (<2.0); WBC,Urine >182 /hpf (0-5)
[2018-06-04] MEDS: ARIPiprazole 2 MG TAB PO SCH (21:11)
--- NOTE | 2018-06-04 23:48 | HP ---
HISTORY AND PHYSICAL DATE OF SERVICE: 06/04/2018. CHIEF COMPLAINT: A 67-year-old white female with drug-resistant UTI, started on IV Azactam for drug- resistant UTI. Urine infection is not susceptible to any oral antibiotics. She has had dysuria, frequency, urgency, hesitancy, low-grade fevers. She has recurrent UTIs with ureteral stents. HOME MEDICATION: 1. [place] 10 q.i.d. 2. Abilify 10 mg daily. 3. Aspirin 325 daily. 4. Aztreonam 1 g every 8 hours p.r.n. 5. Calcium carbonate 500 mg t.i.d. 6. Vitamin D3, 2000 units daily. 7. Lexapro 20 mg daily. 8. Lasix 20 mg daily. 9. Synthroid 50 mcg p.o. daily. 10.Multivitamin 1 daily. PAST MEDICAL HISTORY: 1. Drug-resistant urinary tract infection. 2. Hypothyroidism. 3. Hypertension with edema. 4. Depression. 5. Mood disorder. PHYSICAL EXAM: VITAL SIGNS: Temperature 98.4, pulse 70 to 77, respiratory rate 16 to 19, blood pressure 103 to 128 over 50s to 60s, O2 of 94 to 98% on room air. CARDIOVASCULAR: S1 and S2. LUNGS: Clear. GI: Soft. No tenderness to palpation in the lower abdomen. HEMATOLOGY: Negative Homans. VASCULAR: Normal dorsalis pedis posterior pulse. OPHTHALMOLOGIC: Pupils equal, round, reactive to light and accommodation. ASSESSMENT: Drug-resistant UTI, on IV aztreonam. Consult Urology for possible ureter stent removal. Infectious Disease consult. Continue home medicines for hypothyroidism, mood disorder, long standing history of multiple diseases that are stable right now. Continue with current treatment. Wait for Infectious Disease consult. MMODL / IJN: [id number] /
[2018-06-05] MEDS: SODIUM CHLORIDE 0.9% 1,000 ML IV SCH ×2 (01:35→14:39)
[2018-06-05] MEDS: AZTREONAM 1 GM in SODIUM CHLORIDE 0.9% 50 ML IVPB SCH ×2 (05:52→14:39)
[2018-06-05] MEDS: LEVOTHYROXINE 50 MCG TAB PO SCH (05:53)
[2018-06-05] MEDS: FUROSEMIDE 20 MG TAB PO SCH (05:53)
--- NOTE | 2018-06-05 05:59 | CONS ---
CONSULTATION DATE OF SERVICE: 06/04/2018 REASON FOR CONSULTATION: Recurrent urinary tract infection and multiple antibiotic allergy. HISTORY OF PRESENT ILLNESS: The patient is a 67-year-old female with past medical history significant for breast , lung cancer as well as uterine cancer. The patient did have a history of recurrent UTI. It did have complicated UTIs as the patient did have previous history of cystoscopy, bilateral ureteral stent placement by Urology. The patient apparently has been dealing with UTI in the outpatient setting, has been treated with oral antibiotic which the patient is not sure about the name. The patient continued complaining of significant burning and frequency of urine, suprapubic and flank pain. Pain was more of a dull and burning pain 4 to 5 out of 10, and no radiation. The patient has felt nauseated, but no vomiting. Has been complaining rigors and chills. Patient subsequently has been admitted directly to the hospital by primary care physician. She was started on Azactam. Infectious Disease was consulted for further recommendation regarding antibiotic therapy. REVIEW OF SYSTEMS: Positive points have been mentioned in HPI. Rest of systems are negative. PAST MEDICAL HISTORY: DVT, GI bleed, liver disease, history of breast cancer, squamous cell carcinoma of the skin, uterine as well as lung cancer. PAST SURGICAL HISTORY: Adenoidectomy, appendectomy, breast surgery, cholecystectomy, hysterectomy, tonsillectomy, left lower lobe lobectomy, mastectomy bilateral. SOCIAL HISTORY: Remote history of smoking. No drinking or drug use. FAMILY HISTORY: Father from complication of shrapnel in the body. Mother history of emphysema and stomach problem. ALLERGIES: Allergies to multiple medications including to CIPROFLOXACIN, SULFA, CEPHALEXIN, CEFEPIME, ERYTHROMYCIN, LISINOPRIL. MEDICATIONS: Medications include the patient is currently on [place], Abilify, aspirin, Azactam 1 gram q.8. She is on Lexapro, Lasix, Synthroid, Theragran, and IV fluids. PHYSICAL EXAMINATION: On examination, blood pressure is 103/49 with a pulse of 77, temperature 98.4. She is 98% on room air. General description is a elderly female up in the bed in no distress. No tachypnea or accessory muscle of respiration use. HEENT examination shows pallor, no scleral icterus. Oral mucous membrane is dry. No pharyngeal erythema or thrush. NECK: Trachea central. No thyromegaly. LUNGS: Unlabored breathing, clear to auscultation with crackles. HEART: S1, S2. Regular rate and rhythm. ABDOMEN: Soft, no tenderness. No guarding or rigidity. No organomegaly. EXTREMITIES: No edema of feet. SKIN EXAMINATION: No rash or mass palpable. NEUROLOGICALLY: Patient is awake, alert and oriented x3. Mood and affect normal. LABS: Hemoglobin 9.7, white count 4.6 with a BUN of 70, creatinine is 2.16. Urine moderate LE, nitrite positive, large leukocyte esterase, more than 182 WBCs, many bacteria. Culture is currently pending. Last urine culture on 05/16/2018 shows an E coli which shows a multidrug resistant pattern. DIAGNOSTIC IMPRESSION AND PLAN: 1. Patient with recurrent urinary tract infection in this patient known to have history of complicated urinary tract infection and previous infection with resistant bacteruria in this patient with elevated creatinine with concern for possible obstructive uropathy. 2. Patient known to have multiple antibiotic allergy which limits the number of antibiotics that could be safely used. PLAN: 1. We will obtain ultrasound of the kidney and bladder area to make sure no evidence of hydronephrosis or obstructive uropathy. 2. Azactam 1 gram q.8 to continue while awaiting for repeat cultures to finalize. 3. The patient likely need midline for outpatient antibiotic therapy as no good oral option available at this point. 4. We will follow up on clinical condition and culture to further adjust medication if needed. Thank you for this consultation. Will follow this patient along with you. MMEUGENIOL / IJN: [id number] / EDWAR
--- NOTE | 2018-06-05 08:14 | US ---
EXAMINATION TYPE: US kidneys/renal and bladder DATE OF EXAM: 06/05/2018 COMPARISON: US & CT CLINICAL HISTORY: renal failure , UTI , hYDRONEPHROSIS. Renal Failure, UTI, h/o [place] EXAM MEASUREMENTS: Right Kidney: 10.0 x 5.6 x 5.0 cm Left Kidney: 8.5 x 4.4 x 3.5 cm Right Kidney: Moderate to severe hydro as seen on previous exam/ possible stent visualized medially Left Kidney: Loss of corticomedullary differentiation, small in size Bladder: Unable to visualize, pt voided No nephrolithiasis is seen. No masses are identified. It is poorly evaluated. IMPRESSION: 1. Severe right-sided hydronephrosis with stent noted. 2. Diminutive left kidney.
[2018-06-05] MEDS: ESCITALOPRAM 20 MG TAB PO SCH (08:49)
[2018-06-05] MEDS: HYDROcodone/APAP 10-325MG 1 EACH TAB PO SCH ×4 (08:49→22:15)
[2018-06-05] MEDS: CALCIUM CARBONATE 500 MG CHEWABLE PO SCH ×3 (08:50→22:16)
[2018-06-05] MEDS ORDERED: NON-FORMULARY DRUG (Biotin [Biotin] 5 MG) PO SCH (09:00)
[2018-06-05] MEDS: ONDANSETRON 4 MG/2 ML VIAL IVP PRN ×2 (09:05→22:04)
--- NOTE | 2018-06-05 13:08 | P.GSCN ---
History of Present Illness Consult date: 06/05/18 Reason for Consult: Chronic UTI/stent change History of present illness: The patient is a 67-year-old female admitted for inpatient IV antibiotic treatment due to an E. coli urinary tract infection which has been resistant to recent oral therapy with tetracycline. The patient says she's had an infection for over one year. She complains of dysuria, suprapubic pain and intermittent urge incontinence. She has had no gross hematuria. She says she occasionally has chills but denies a fever. She has intermittent right flank pain. She has a history of chronic right hydronephrosis secondary to ureteral scarring presumably related to previous pelvic radiation therapy. She has been palliated by placement of a right double-J catheter which is changed every 6 month. The catheter was last changed in 12/[address] Contreras. Renal ultrasound performed yesterday showed chronic right hydronephrosis which was essentially unchanged from a previous ultrasound. She has a small left kidney which is also chronic. Review of Systems - Constitutional Reports chills, Reports fatigue, Denies fever - Cardiovascular Denies shortness of breath - Respiratory Denies cough, Denies wheezing - Gastrointestinal Reports as per HPI - Genitourinary Genitourinary: Reports as per HPI Past Medical History Past Medical History: Blood Disorder, Cancer, Deep Vein Thrombosis (DVT), GI Bleed, Liver Disease, Respiratory Disorder Additional Past Medical History / Comment(s): 09-10-14 admitted to [facility] with c/o blood in urine and rectal bleeding, DX GI BLEED AND UTI. other hx: Breast Ca x2; Skin Ca squamous and melanoma; uterine ca, lung cancer LOWER LEFT LOBE 70%, c-diff- 6-5-15 snd feb 2017, on xarelto for dvt and portal vein thrombosis. 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 Wound to BACK r/t lung CA, healed 6 months ago History of Any Multi-Drug Resistant Organisms: MRSA Year Discovered:: 09/17/17 MDRO Source:: MRSA URINE Past Surgical History: Adenoidectomy, Appendectomy, Breast Surgery, Cholecystectomy, Hysterectomy, Orthopedic Surgery, Tonsillectomy Additional Past Surgical History / Comment(s): Mastectomy bilateral; Left lower lobectomy 70%; exploratory laparotomy, LASER SX AT [facility] FOR MELANOMA- CURRENTLY HAS 100 SPOTS THAT THEY ARE WATCHING REMMOVED 4 SO FAR.lasik eye sx, past "abcess on back(ecoli) pt stated they had to open a channel,removed 2 ribs and some muscle and it was open to drain to 18 months". surgical repair to Right wrist, right femur, and right hip in 2018 Additional Past Anesthesia/Blood Transfusion Reaction / Comm: PAST BLOOD TRANSFUSIONS- NO COMPLICATIONS Past Psychological History: Depression Additional Psychological History / Comment(s): LOW DOSE LEXAPRO, CURRENTLY NO DEPRESSION, PT normally lives at home with her zeeshan, however currently patient resides at [facility] due to right arm and hip fractures . pt started she had just recently started working w/pt getting up w/walker and assistance and transfer w/assistance to w/c Smoking Status: Former smoker Past Alcohol Use History: None Reported Additional Past Alcohol Use History / Comment(s): STARTED SMOKING AT AGE 13, SMOKED 1 PPD SMOKED FOR 3 YEARS THEN CUT DOWN TO ONLY SMOKING WHEN OUT WITH FRIENDS.QUIT 1978. Past Drug Use History: None Reported - Past Family History Father Additional Family Medical History / Comment(s): FROM COMPLICATIONS OF SCHRAPNEL IN BODY Mother Additional Family Medical History / Comment(s): STOMACH PROBLEMS, EMPHYSEMA Medications and Allergies Home Medications Medication Instructions Recorded Confirmed Type Levothyroxine Sodium [Synthroid] 50 mcg PO DAILY@0600 07/04/17 06/04/18 History Escitalopram Oxalate [Lexapro] 20 mg PO DAILY 07/06/17 06/04/18 History Calcium Carbonate [Tums] 500 mg PO TID chew 07/09/17 06/04/18 Rx Cholecalciferol [Vitamin D3] 2,000 unit PO DAILY@1700 07/22/17 06/04/18 History Multivitamins, Thera [Multivitamin 1 tab PO DAILY@169907/22/17 06/04/18 History (formulary)] Aspirin EC [Ecotrin] 325 mg PO DAILY@0 08/30/17 06/04/18 History Furosemide [Lasix] 20 mg PO DAILY@0600 08/30/17 06/04/18 History ARIPiprazole [Abilify] 2 mg PO HS 06/04/18 06/04/18 History Biotin 5 mg PO DAILY 06/04/18 06/04/18 History Hydrocodone/Acetaminophen [[place] 1 tab PO QID 06/04/18 06/04/18 History 10-325] Allergies Allergy/AdvReac Type Severity Reaction Status Date / Time VANESSA Inhibitors Allergy Unknown Verified 06/04/18 13:37 baclofen Allergy Confusion Verified 06/04/18 13:37 cefepime HCl [From Maxipime] Allergy Rash/Hives Verified 06/04/18 13:37 cephalexin Allergy Rash/Hives Verified 06/04/18 13:37 ciprofloxacin Allergy Rash/Hives Verified 06/04/18 13:37 clindamycin Allergy Nausea & Verified 06/04/18 13:37 Vomiting erythromycin base Allergy Rash/Hives Verified 06/04/18 13:37 heparin Allergy Unknown Verified 06/04/18 13:37 lisinopril [From Zestril] Allergy Unknown Verified 06/04/18 13:37 lorazepam [From Ativan] Allergy Confusion Verified 06/04/18 13:37 metronidazole [From Flagyl] Allergy Nausea & Verified 06/04/18 13:37 Vomiting penicillin G Allergy Rash/Hives Verified 06/04/18 13:37 shellfish derived [Shellfish] Allergy Swelling Verified 06/04/18 13:37 Sulfa (Sulfonamide Allergy Swelling Verified 06/04/18 13:37 Antibiotics) steroids Allergy Unknown Uncoded 06/04/18 12:05 Surgical - Exam Vital Signs Temp Pulse Resp BP Pulse Ox 98.4 F 70 16 128/62 98 06/04/18 11:22 06/04/18 11:22 06/04/18 11:22 06/04/18 11:22 06/04/18 11:22 - General well developed, well nourished, no distress - ENT no hearing loss - Neck no masses, no lymphadectomy - Abdomen Abdomen: soft, tender (Right upper quadrant and right flank), no organomegaly Results - Labs 06/04/18 16:04 06/04/18 16:04 Abnormal Lab Results - Last 24 Hours (Table) 06/04/18 06/04/18 06/04/18 Range/Units 16:04 16:04 17:51 RBC 3.59 L (3.80-5.40) m/uL Hgb 9.7 L (11.4-16.0) gm/dL Hct 32.7 L (34.0-46.0) % MCHC 29.6 L (31.0-37.0) g/dL Plt Count 141 L (150-450) k/uL Chloride 109 H (98-107) mmol/L Carbon Dioxide 21 L (22-30) mmol/L BUN 70 H (7-17) mg/dL Creatinine 2.16 H (0.52-1.04) mg/dL Alkaline Phosphatase 166 H (38-126) U/L Albumin 2.8 L (3.5-5.0) g/dL Urine Appearance Cloudy H (Clear) Urine Blood Moderate H (Negative) Urine Nitrite Positive H (Negative) Ur Leukocyte Esterase Large H (Negative) Urine RBC 47 H (0-5) /hpf Urine WBC >182 H (0-5) /hpf Urine WBC Clumps Moderate H (None) /hpf Urine Bacteria Many H (None) /hpf Urine Mucus Rare H (None) /hpf Microbiology - Last 24 Hours (Table) 06/04/18 17:51 Urine Culture - Preliminary Urine,Voided Diabetes panel 06/04/18 Range/Units 16:04 Sodium 140 (137-145) mmol/L Potassium 4.5 (3.5-5.1) mmol/L Chloride 109 H (98-107) mmol/L Carbon Dioxide 21 L (22-30) mmol/L BUN 70 H (7-17) mg/dL Creatinine 2.16 H (0.52-1.04) mg/dL Glucose 89 (74-99) mg/dL Calcium 8.5 (8.4-10.2) mg/dL AST 36 (14-36) U/L ALT 26 (9-52) U/L Alkaline Phosphatase 166 H (38-126) U/L Total Protein 6.4 (6.3-8.2) g/dL Albumin 2.8 L (3.5-5.0) g/dL Calcium panel 06/04/18 Range/Units 16:04 Calcium 8.5 (8.4-10.2) mg/dL Albumin 2.8 L (3.5-5.0) g/dL Pituitary panel 06/04/18 Range/Units 16:04 Sodium 140 (137-145) mmol/L Potassium 4.5 (3.5-5.1) mmol/L Chloride 109 H (98-107) mmol/L Carbon Dioxide 21 L (22-30) mmol/L BUN 70 H (7-17) mg/dL Creatinine 2.16 H (0.52-1.04) mg/dL Glucose 89 (74-99) mg/dL Calcium 8.5 (8.4-10.2) mg/dL Adrenal panel 06/04/18 Range/Units 16:04 Sodium 140 (137-145) mmol/L Potassium 4.5 (3.5-5.1) mmol/L Chloride 109 H (98-107) mmol/L Carbon Dioxide 21 L (22-30) mmol/L BUN 70 H (7-17) mg/dL Creatinine 2.16 H (0.52-1.04) mg/dL Glucose 89 (74-99) mg/dL Calcium 8.5 (8.4-10.2) mg/dL Total Bilirubin 0.8 (0.2-1.3) mg/dL AST 36 (14-36) U/L ALT 26 (9-52) U/L Alkaline Phosphatase 166 H (38-126) U/L Total Protein 6.4 (6.3-8.2) g/dL Albumin 2.8 L (3.5-5.0) g/dL Assessment and Plan (1) Hydronephrosis, right Narrative/Plan: The patient has chronic right hydronephrosis secondary to obstruction in her right ureter which has been palliated with internal diversion with a right double-J catheter. The double-J catheter was last changed in 12/2017. It may or may not be a contributory factor as far as her chronic urinary tract infection and voiding symptoms. The patient has been started on IV antibiotic therapy with Aztreonam and will most likely have a PICC line placed for outpatient treatment. Dr. Contreras will set up cystoscopy with exchange of the right double-J catheter sometime next week. Current Visit: Yes Status: Acute Code(s): N13.30 - UNSPECIFIED HYDRONEPHROSIS SNOMED Code(s): 70468679
[2018-06-05] MEDS: ASPIRIN 325 MG TAB PO SCH (17:12)
[2018-06-05] MEDS: MULTIVITAMINS, THERA 1 EACH TAB PO SCH (17:13)
[2018-06-05] MEDS: CHOLECALCIFEROL 1,000 UNIT TAB PO SCH (17:13)
[2018-06-05] MEDS: ARIPiprazole 2 MG TAB PO SCH (22:15)
--- NOTE | 2018-06-05 23:25 | PN ---
PROGRESS NOTE DATE OF SERVICE: 06/05/2018. REASON FOR FOLLOWUP: Complicated gram-negative urinary tract infection. INTERVAL HISTORY: The patient is currently afebrile. She is breathing comfortably. Still complaining of pain on urination as well as right flank area. No nausea. No vomiting. Denies having chest pain or shortness of breath or cough. PHYSICAL EXAMINATION: Blood pressure 114/63 with a pulse of 70, temperature 98.7. She is 98% on room air. General description is an elderly female up in the chair in no distress. RESPIRATORY SYSTEM: Unlabored breathing. Clear to auscultation anteriorly. HEART: S1, S2. Regular rate and rhythm. ABDOMEN: Soft. No tenderness. LABS: Urine showing gram-negative bacilli. Ultrasound showed severe right-sided hydronephrosis. DIAGNOSTIC IMPRESSION AND PLAN: Patient with a complicated urinary tract infection with significant right-sided hydronephrosis with multiple antibiotic allergies. The patient has been seen by Urology, who is recommending IV antibiotic and cystoscopy with exchange of catheter next week. However, the patient may benefit from exchange sooner in order to relieve her obstruction and heal this infection. Will discuss with Urology. Keep the patient on Azactam because of multiple antibiotic allergies while waiting for the urine culture to finalize. Continue with supportive care. MMODL / IJN: [id number] /
[2018-06-05] MEDS: AZTREONAM 0.5 GM in SODIUM CHLORIDE 0.9% 50 ML IVPB SCH (23:57)
--- NOTE | 2018-06-06 00:04 | PN ---
PROGRESS NOTE SUBJECTIVE: 67-year-old white female admitted with a drug-resistant UTI, on IV aztreonam. She has multiple drug allergies. PICC line will be needed for outpatient IV antibiotics. She is supposed to get a urinary catheter exchange with Dr. Contreras next week as an outpatient. In the meantime, she needs a PICC line thru IV antibiotics and then she will be able to be discharged. Vital signs stable. CARDIOVASCULAR: S1, S2. Lungs clear. GI soft. Hematology negative Homans. ASSESSMENT: 1. Drug-resistant urinary tract infection. 2. Hydronephrosis, chronic on the right. 3. Multiple medical conditions. Wait for PICC line placement. Dr. Epps's recommendations for outpatient antibiotics. Continue on hypothyroidism medication and depression medication. Please see further orders. MMODL / IJN: [id number] /
[2018-06-06] MEDS: SODIUM CHLORIDE 0.9% 1,000 ML IV SCH ×2 (04:37→17:55)
[2018-06-06] MEDS: FUROSEMIDE 20 MG TAB PO SCH (06:15)
[2018-06-06] MEDS: AZTREONAM 0.5 GM in SODIUM CHLORIDE 0.9% 50 ML IVPB SCH ×3 (06:15→22:26)
[2018-06-06] MEDS: LEVOTHYROXINE 50 MCG TAB PO SCH (06:15)
[2018-06-06] MEDS: ESCITALOPRAM 20 MG TAB PO SCH (08:23)
[2018-06-06] MEDS: HYDROcodone/APAP 10-325MG 1 EACH TAB PO SCH ×4 (08:23→22:07)
[2018-06-06] MEDS: CALCIUM CARBONATE 500 MG CHEWABLE PO SCH ×3 (08:23→22:06)
--- NOTE | 2018-06-06 12:05 | P.NPCON ---
History of Present Illness - Reason for Consult acute renal failure - History of Present Illness Reason for consultation: Acute kidney injury History of present illness: Patient is a 67-year-old female seen in renal consultation for acute kidney injury. Creatinine on admission was 2.16. Labs from today are pending. Patient is currently maintained on IV antibiotics for UTI. Urine cultures positive for gram-negative bacilli. Patient is noted to have severe hydronephrosis on the right side and currently has a ureteral stent in place. She is being followed by urology and there are plans to change the stent in the next few days. No proteinuria on UA. No vomiting or diarrhea today. She did have an episode of emesis yesterday. Denies use of nonsteroidals. Admits to good urine output. No hematuria or dysuria. No history of diabetes. Denies family history of renal disease. Does have abdominal discomfort on the right side. Oral intake is fair. She is maintained on normal saline at 75 mL an hour. Vital signs are stable. General: The patient appeared well nourished and normally developed. HEENT: Head exam is unremarkable. Neck is without jugular venous distension. LUNGS: Lungs are clear to auscultation and percussion. Breath sounds decreased. HEART: Rate and Rhythm are regular. First and second heart sounds normal. No murmurs, rubs or gallops. ABDOMEN: Abdominal exam reveals normal bowel sounds. Generalized tenderness on the right side. EXTREMITITES: No clubbing, cyanosis, or edema. Past Medical History Past Medical History: Blood Disorder, Cancer, Deep Vein Thrombosis (DVT), GI Bleed, Liver Disease, Respiratory Disorder Additional Past Medical History / Comment(s): 09-10-14 admitted to [facility] with c/o blood in urine and rectal bleeding, DX GI BLEED AND UTI. other hx: Breast Ca x2; Skin Ca squamous and melanoma; uterine ca, lung cancer LOWER LEFT LOBE 70%, c-diff- 6-5-15 snd feb 2017, on xarelto for dvt and portal vein thrombosis. 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 Wound to BACK r/t lung CA, healed 6 months ago History of Any Multi-Drug Resistant Organisms: MRSA Date of last positivie culture/infection: 09/17/17 MDRO Source:: MRSA URINE Past Surgical History: Adenoidectomy, Appendectomy, Breast Surgery, Cholecystectomy, Hysterectomy, Orthopedic Surgery, Tonsillectomy Additional Past Surgical History / Comment(s): Mastectomy bilateral; Left lower lobectomy 70%; exploratory laparotomy, LASER SX AT [facility] FOR MELANOMA- CURRENTLY HAS 100 SPOTS THAT THEY ARE WATCHING REMMOVED 4 SO FAR.lasik eye sx, past "abcess on back(ecoli) pt stated they had to open a channel,removed 2 ribs and some muscle and it was open to drain to 18 months". surgical repair to Right wrist, right femur, and right hip in 2018 Additional Past Anesthesia/Blood Transfusion Reaction / Comment(s): PAST BLOOD TRANSFUSIONS- NO COMPLICATIONS Past Psychological History: Depression Additional Psychological History / Comment(s): LOW DOSE LEXAPRO, CURRENTLY NO DEPRESSION, PT normally lives at home with her zeeshan, however currently patient resides at [facility] due to right arm and hip fractures . pt started she had just recently started working w/pt getting up w/walker and assistance and transfer w/assistance to w/c Smoking Status: Former smoker Past Alcohol Use History: None Reported Additional Past Alcohol Use History / Comment(s): STARTED SMOKING AT AGE 13, SMOKED 1 PPD SMOKED FOR 3 YEARS THEN CUT DOWN TO ONLY SMOKING WHEN OUT WITH FRIENDS.QUIT 1978. Past Drug Use History: None Reported - Past Family History Father Additional Family Medical History / Comment(s): FROM COMPLICATIONS OF SCHRAPNEL IN BODY Mother Additional Family Medical History / Comment(s): STOMACH PROBLEMS, EMPHYSEMA Medications and Allergies Home Medications Medication Instructions Recorded Confirmed Type Levothyroxine Sodium [Synthroid] 50 mcg PO DAILY@0600 07/04/17 06/04/18 History Escitalopram Oxalate [Lexapro] 20 mg PO DAILY 07/06/17 06/04/18 History Calcium Carbonate [Tums] 500 mg PO TID chew 07/09/17 06/04/18 Rx Cholecalciferol [Vitamin D3] 2,000 unit PO DAILY@169907/22/17 06/04/18 History Multivitamins, Thera [Multivitamin 1 tab PO DAILY@169907/22/17 06/04/18 History (formulary)] Aspirin EC [Ecotrin] 325 mg PO DAILY@0 08/30/17 06/04/18 History Furosemide [Lasix] 20 mg PO DAILY@0600 08/30/17 06/04/18 History ARIPiprazole [Abilify] 2 mg PO HS 06/04/18 06/04/18 History Biotin 5 mg PO DAILY 06/04/18 06/04/18 History Hydrocodone/Acetaminophen [[place] 1 tab PO QID 06/04/18 06/04/18 History 10-325] Allergies Allergy/AdvReac Type Severity Reaction Status Date / Time VANESSA Inhibitors Allergy Unknown Verified 06/04/18 13:37 baclofen Allergy Confusion Verified 06/04/18 13:37 cefepime HCl [From Maxipime] Allergy Rash/Hives Verified 06/04/18 13:37 cephalexin Allergy Rash/Hives Verified 06/04/18 13:37 ciprofloxacin Allergy Rash/Hives Verified 06/04/18 13:37 clindamycin Allergy Nausea & Verified 06/04/18 13:37 Vomiting erythromycin base Allergy Rash/Hives Verified 06/04/18 13:37 heparin Allergy Unknown Verified 06/04/18 13:37 lisinopril [From Zestril] Allergy Unknown Verified 06/04/18 13:37 lorazepam [From Ativan] Allergy Confusion Verified 06/04/18 13:37 metronidazole [From Flagyl] Allergy Nausea & Verified 06/04/18 13:37 Vomiting penicillin G Allergy Rash/Hives Verified 06/04/18 13:37 shellfish derived [Shellfish] Allergy Swelling Verified 06/04/18 13:37 Sulfa (Sulfonamide Allergy Swelling Verified 06/04/18 13:37 Antibiotics) steroids Allergy Unknown Uncoded 06/04/18 12:05 Physical Exam Vitals: Vital Signs Temp Pulse Resp BP Pulse Ox 06/06/18 07:00 98.3 F 71 17 112/64 97 06/06/18 01:26 98.5 F 74 17 94/55 95 06/05/18 19:39 98.1 F 80 19 99/61 97 06/05/18 17:55 98.7 F 70 16 114/63 98 06/05/18 15:00 98.3 F 74 16 104/60 98 Intake and Output 06/05/18 06/06/18 06/06/18 22:59 06:59 14:59 Other: Voiding Method Toilet Toilet # Voids 1 2 Results - Lab Results Most recent lab results Calcium 8.5 mg/dL (8.4-10.2) 06/04/18 16:04 06/04/18 16:04 06/04/18 16:04 Assessment and Plan Plan: Assessment: 1. Acute kidney injury secondary to obstructive uropathy. Creatinine 2.16 on admission. Labs from today are pending. 2. Atrophic left kidney. 3. Severe hydronephrosis on the right side with ureteral stent in place. 4. UTI with urine culture positive for gram-negative bacilli. Maintain on IV antibiotics per infectious disease. 5. Metabolic acidosis secondary to acute kidney injury and IV fluids. Plan: Maintain normal saline at 75 mL an hour. Hold diuretics. Follow-up cultures. Ureteral stent to be exchanged by urology over the next few days. Avoid nephrotoxins. Repeat electrolytes in the morning. Thank you for the consultation. I will continue to follow patient with you during her hospital stay.
[2018-06-06] MEDS: MULTIVITAMINS, THERA 1 EACH TAB PO SCH (17:55)
[2018-06-06] MEDS: ASPIRIN 325 MG TAB PO SCH (17:55)
[2018-06-06] MEDS: CHOLECALCIFEROL 1,000 UNIT TAB PO SCH (17:55)
[2018-06-06] MEDS: ARIPiprazole 2 MG TAB PO SCH (22:06)
[2018-06-06] MEDS: ONDANSETRON 4 MG/2 ML VIAL IVP PRN (22:14)
[2018-06-07] MEDS: LEVOTHYROXINE 50 MCG TAB PO SCH (05:52)
[2018-06-07] MEDS: AZTREONAM 0.5 GM in SODIUM CHLORIDE 0.9% 50 ML IVPB SCH ×3 (05:52→22:37)
[2018-06-07] MEDS: ONDANSETRON 4 MG/2 ML VIAL IVP PRN ×2 (05:55→21:11)
[2018-06-07] MEDS: SODIUM CHLORIDE 0.9% 1,000 ML IV SCH ×2 (05:55→21:13)
--- NOTE | 2018-06-07 06:48 | PN ---
PROGRESS NOTE DATE OF SERVICE: 06/06/2018 REASON FOR FOLLOW UP: Complicated urinary tract infection with multiple antibiotic allergies. INTERVAL HISTORY: The patient is currently afebrile. The patient is breathing comfortably. Still complaining of pain to the right leg and pain on urination. No chest pain, shortness of breath or cough. No diarrhea. PHYSICAL EXAMINATION: Blood pressure 119/50 with a pulse of 74, temperature 97.8. She is 99% on room air. General description is an elderly female lying in bed in no distress. Respiratory system: Unlabored breathing, clear to auscultation anteriorly. Heart S1, S2. Regular rate and rhythm. Abdomen soft, no tenderness. LABS: No new labs have been obtained today. Urine with gram negative. DIAGNOSTIC IMPRESSION AND PLAN: Complicated urinary tract infection with right-sided hydronephrosis, urine with gram- negative. Multiple antibiotic allergy. The patient currently covered with Azactam, to continue. Will monitor her clinical course closely. Discharge antibiotic will depend on the culture report. Continue supportive care. MMODL / IJN: [id number] /
[2018-06-07] MEDS: HYDROcodone/APAP 10-325MG 1 EACH TAB PO SCH ×4 (08:45→21:12)
[2018-06-07] MEDS: CALCIUM CARBONATE 500 MG CHEWABLE PO SCH ×3 (08:45→21:12)
[2018-06-07] MEDS: ESCITALOPRAM 20 MG TAB PO SCH (08:45)
[2018-06-07 10:08] LABS: Calcium 8.6 mg/dL (8.4-10.2)
[2018-06-07 10:19] LABS: Potassium 5.8 mmol/L (3.5-5.1)
--- NOTE | 2018-06-07 15:53 | P.PN ---
Subjective Progress Note Date: 06/07/18 Seen and examined for the follow-up of acute kidney injury. No nausea vomiting diarrhea. Currently on IV fluids. Admits emptying good amount of urine. Objective - Vital Signs Vital signs: Vital Signs Temp 98.2 F 06/07/18 07:20 Pulse 68 06/07/18 07:20 Resp 12 06/07/18 14:23 BP 108/63 06/07/18 07:20 Pulse Ox 98 06/07/18 07:20 Intake & Output 06/06/18 06/07/18 06/07/18 18:59 06:59 18:59 Intake Total 650 1125 Balance 650 1125 Intake: Intake, IV Titration 650 525 Amount Aztreonam 0.5 gm In 50 Sodium Chloride 0.9% 50 ml @ 100 mls/hr IVPB Q8H [facility] Rx#:[id number] Sodium Chloride 0.9% 1, 600 525 000 ml @ 75 mls/hr IV . [id number] [facility] Rx#:[id number] Oral 600 Other: Voiding Method Toilet Toilet Toilet # Voids 3 - Exam No acute distress S1-S2 heard Lungs clear Tender suprapubic area with distended bladder. No edema - Labs CBC & Chem 7: 06/04/18 16:04 06/07/18 08:12 Labs: Abnormal Lab Results - Last 24 Hours (Table) 06/07/18 Range/Units 08:12 Potassium 5.8 H (3.5-5.1) mmol/L Chloride 116 H (98-107) mmol/L Carbon Dioxide 18 L (22-30) mmol/L BUN 76 H (7-17) mg/dL Creatinine 2.03 H (0.52-1.04) mg/dL Glucose 132 H (74-99) mg/dL Assessment and Plan Assessment: #1 acute kidney injury secondary to obstructive uropathy from right hydronephrosis. #2 mild hyperkalemia secondary to obstruction. #3 complicated urinary tract infection #4 metabolic acidosis #5 CK D3 secondary to clinic nephropathy with atrophic left kidney with a baseline creatinine around 1.9-2.0 MG per DL. Plan: #1 continue with IV fluids. #2 bladder scan to rule out urinary retention if so Place King catheter. It also helps to decompress the hydronephrosis. #3 urology on case needs stent to relieve obstruction. #4 avoid nephrotoxic agents and hypotensive episodes. #5 treat potassium medically.
[2018-06-07] MEDS: CHOLECALCIFEROL 1,000 UNIT TAB PO SCH (17:33)
[2018-06-07] MEDS: MULTIVITAMINS, THERA 1 EACH TAB PO SCH (17:33)
[2018-06-07] MEDS: ASPIRIN 325 MG TAB PO SCH (17:33)
[2018-06-07] MEDS: ARIPiprazole 2 MG TAB PO SCH (21:12)
--- NOTE | 2018-06-07 22:51 | PN ---
PROGRESS NOTE SUBJECTIVE: This is a white female who is going to get a PICC line placed on Saturday, continues on IV Azactam. Renal physician is on consult for renal disease. She shows left kidney atrophy, right kidney hydronephrosis. She has bilateral ureteral stents which are going to be replaced next week. Cardiovascular S1-S2. Lungs are clear. GI soft. ASSESSMENT: 1. Drug-resistant urinary tract infection. 2. Right hydronephrosis. 3. History of multiple cancers. 4. Generalized weakness. 5. Immune deficiency. 6. Given IV Azactam PICC line. Discharge home on Saturday with IV antibiotics at home. Continue with IV Azactam until cultures are back. MMODL / IJN: [id number] /
[2018-06-08] MEDS: LEVOTHYROXINE 50 MCG TAB PO SCH (05:47)
[2018-06-08] MEDS: AZTREONAM 0.5 GM in SODIUM CHLORIDE 0.9% 50 ML IVPB SCH ×3 (05:47→22:28)
[2018-06-08] MEDS: ONDANSETRON 4 MG/2 ML VIAL IVP PRN ×3 (07:32→22:29)
[2018-06-08] MEDS: ESCITALOPRAM 20 MG TAB PO SCH (08:53)
[2018-06-08] MEDS: HYDROcodone/APAP 10-325MG 1 EACH TAB PO SCH ×4 (08:53→22:29)
[2018-06-08] MEDS: CALCIUM CARBONATE 500 MG CHEWABLE PO SCH ×3 (08:55→22:29)
[2018-06-08] MEDS: SODIUM CHLORIDE 0.9% 1,000 ML IV SCH ×2 (10:19→22:28)
--- NOTE | 2018-06-08 12:52 | P.PN ---
Subjective Progress Note Date: 06/08/18 Seen and examined for the follow-up of acute kidney injury. No nausea vomiting diarrhea. Currently on IV fluids. Admits emptying good amount of urine. Minimal on postvoid residuals. Objective - Vital Signs Vital signs: Vital Signs Temp 98.5 F 06/08/18 07:06 Pulse 80 06/08/18 07:06 Resp 12 06/08/18 07:06 BP 102/60 06/08/18 07:06 Pulse Ox 95 06/08/18 07:06 Intake & Output 06/07/18 06/08/18 06/08/18 18:59 06:59 18:59 Intake Total 1325 2004 Balance 1325 2004 Intake: Intake, IV Titration 525 875 Amount Aztreonam 0.5 gm In 50 Sodium Chloride 0.9% 50 ml @ 100 mls/hr IVPB Q8H [facility] Rx#:[id number] Sodium Chloride 0.9% 1, 525 825 000 ml @ 75 mls/hr IV . [id number] [facility] Rx#:[id number] Oral 800 1130 Other: Voiding Method Toilet Toilet Toilet # Voids 7 # Bowel Movements 3 - Exam No acute distress S1-S2 heard Lungs clear Tender suprapubic area with distended bladder. No edema - Labs CBC & Chem 7: 06/04/18 16:04 06/07/18 08:12 Labs: Microbiology - Last 24 Hours (Table) 06/04/18 17:51 Urine Culture - Final Urine,Voided Escherichia coli Assessment and Plan Assessment: #1 acute kidney injury secondary to obstructive uropathy from right hydronephrosis. #2 mild hyperkalemia secondary to obstruction. #3 complicated urinary tract infection #4 metabolic acidosis #5 CK D3 secondary to clinic nephropathy with atrophic left kidney with a baseline creatinine around 1.9-2.0 MG per DL. Plan: #1 continue with IV fluids. No labs today checked labs. #2 urology on case needs stent exchange to relieve obstruction. #3 avoid nephrotoxic agents and hypotensive episodes. #4 treat potassium medically if more than 5.5. If persistent hyperkalemia needs stent exchange while in the hospital rather than outpatient
[2018-06-08 13:27] LABS: Calcium 8.6 mg/dL (8.4-10.2)
[2018-06-08] MEDS: ASPIRIN 325 MG TAB PO SCH (17:10)
[2018-06-08] MEDS: CHOLECALCIFEROL 1,000 UNIT TAB PO SCH (17:10)
[2018-06-08] MEDS: MULTIVITAMINS, THERA 1 EACH TAB PO SCH (17:11)
--- NOTE | 2018-06-08 20:16 | PN ---
PROGRESS NOTE DATE OF SURGERY: June 08, 2018. She has been hemodynamically stable. She does not complain of shortness of breath or pain. She has some burning micturition. On physical examination her respiratory rate is 14, pulse rate of 76. She is afebrile. Blood pressure is stable. Chest is clear. Cardiovascular system is S1, S2. Abdomen soft. There is no pedal edema. Labs and medications were reviewed. IMPRESSION: Drug-resistant urinary tract infection with right-sided hydronephrosis. Continue IV Azactam and await PICC line to be placed tomorrow. Keep her on GI and DVT prophylaxis. Increase her activity level. Depending on how she does we should make further changes to her care. MMODL / IJN: [id number] /
[2018-06-08] MEDS: ARIPiprazole 2 MG TAB PO SCH (22:28)
[2018-06-09] MEDS: AZTREONAM 0.5 GM in SODIUM CHLORIDE 0.9% 50 ML IVPB SCH ×3 (05:43→22:44)
[2018-06-09] MEDS: LEVOTHYROXINE 50 MCG TAB PO SCH (05:43)
[2018-06-09] MEDS: HYDROcodone/APAP 10-325MG 1 EACH TAB PO SCH ×4 (07:34→22:44)
[2018-06-09] MEDS: ESCITALOPRAM 20 MG TAB PO SCH (07:34)
[2018-06-09] MEDS: CALCIUM CARBONATE 500 MG CHEWABLE PO SCH ×3 (07:34→22:44)
[2018-06-09] MEDS: ONDANSETRON 4 MG/2 ML VIAL IVP PRN ×2 (07:35→17:44)
[2018-06-09 10:03] LABS: Calcium 8.9 mg/dL (8.4-10.2); Potassium 5.6 mmol/L (3.5-5.1)
[2018-06-09] MEDS: SODIUM CHLORIDE 0.9% 1,000 ML IV SCH (12:55)
[2018-06-09] MEDS: CHOLECALCIFEROL 1,000 UNIT TAB PO SCH (17:09)
[2018-06-09] MEDS: MULTIVITAMINS, THERA 1 EACH TAB PO SCH (17:09)
[2018-06-09] MEDS: ASPIRIN 325 MG TAB PO SCH (17:09)
--- NOTE | 2018-06-09 17:21 | PN ---
PROGRESS NOTE DATE OF SERVICE: 06/09/2018 REASON FOR FOLLOWUP: Complicated urinary tract infection. INTERVAL HISTORY: The patient is currently afebrile. The patient is breathing comfortably. Denies having any chest pain or cough. No nausea, no vomiting. Still having abdominal pain no diarrhea. PHYSICAL EXAMINATION: Blood pressure 105/61 with a pulse of 85, temperature 98.7. She is 95% on room air. General description is an elderly female lying in bed in no distress. RESPIRATORY SYSTEM: Unlabored breathing. Clear to auscultation anteriorly. HEART: S1, S2. Regular rate and rhythm. ABDOMEN: Soft. No tenderness. LABS: BUN 67, creatinine 1.90. Urine with an E coli sensitive to Azactam, which the patient is currently on. DIAGNOSTIC IMPRESSION AND PLAN: Patient with Escherichia coli urinary tract infection, [id number], in this patient who did have multiple antibiotic allergies, currently covered with Azactam. She did get a mid line to continue as outpatient. Can be switched over to Invanz to finish a course of therapy with close outpatient followup. Continue with supportive care. MMODL / IJN: [id number] /
--- NOTE | 2018-06-09 20:24 | PN ---
PROGRESS NOTE The patient is seen for followup for acute kidney injury on top of chronic kidney disease. Serum creatinine has been staying about around 2-1.9 mg/dL. The patient has also recently had hyperkalemia and her potassium is down to 5.6 from 6.0. The serum creatinine staying at 1.9. The patient is maintained on IV fluids. She denies any significant complaints of chest pain, abdominal pain or diarrhea. EXAMINATION: Today, blood pressure was 98/60, heart rate 64 per minute. Patient is afebrile. Examination of the heart S1, S2. Examination of the lungs bilateral breath sounds are heard. Abdomen is soft, nontender. Examination of lower extremities, shows no evidence of edema. 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 The labs show sodium 143, potassium 5.6, chloride 119, BUN 67, serum creatinine 1.90. The UA shows more than 182 WBCs on June 04. Urine culture is growing E coli. ASSESSMENT: 1. Acute kidney injury secondary to obstructive uropathy as patient has a right hydronephrosis and an atrophic left kidney. The patient is being followed by Urology and there was a plan for possible stent exchange. 2. Urinary tract infection with underlying obstructive uropathy. Urine culture grew E coli. Patient is maintained on aztreonam. 3. Hypothyroidism. 4. Chronic kidney disease with atrophic left kidney, stage III, with baseline creatinine about 1.3-1.9 mg/dL. 5. Hyperkalemia associated with obstructive uropathy, currently improved. Potassium is down to 5.6 from 6.0. The patient is maintained on low-potassium diet. Hold off on Kayexalate. I will add sodium bicarb as she is acidotic as well. This will help with the hyperkalemia. 6. Metabolic acidosis secondary to renal failure and obstructive uropathy. Add oral sodium bicarb. PLAN: Add oral sodium bicarb. Continue IV fluids and repeat labs in a.m. Await ureteral stent exchange by Urology. Avoid any nephrotoxic agents. Continue with antibiotics. MMODL / IJN: [id number] /
[2018-06-09] MEDS: ARIPiprazole 2 MG TAB PO SCH (22:43)
[2018-06-09] MEDS: SODIUM BICARBONATE TAB 650 MG TAB PO SCH (22:44)
--- NOTE | 2018-06-09 23:47 | PN ---
PROGRESS NOTE SUBJECTIVE: Wgdtx-itsk-nnct-old white female with UTI, drug-resistant, on IV Azactam. PICC line was placed. Due to severe hyperkalemia for the last 3 days renal physician elevated potassium levels. Due to high potassium levels, renal physician wants the urologist to replace the ureteral stents due to hydronephrosis on the right kidney. CARDIOVASCULAR: S1, S2. Lungs are clear. GI: Soft. HEMATOLOGY: Negative Homans. ASSESSMENT: 1. Urinary tract infection. 2. Hydronephrosis. 3. Drug-resistant. Ureteral stents will need to be removed, potassium lowered. Please see further orders. Remain IV PICC line with Azactam. Continue. MMODL / IJN: [id number] /
[2018-06-10] MEDS: SODIUM CHLORIDE 0.9% 1,000 ML IV SCH ×2 (02:52→15:05)
[2018-06-10] MEDS: LEVOTHYROXINE 50 MCG TAB PO SCH (05:22)
[2018-06-10] MEDS: AZTREONAM 0.5 GM in SODIUM CHLORIDE 0.9% 50 ML IVPB SCH ×2 (05:23→12:51)
[2018-06-10] MEDS: ONDANSETRON 4 MG/2 ML VIAL IVP PRN ×3 (08:07→21:50)
[2018-06-10] MEDS: SODIUM BICARBONATE TAB 650 MG TAB PO SCH ×2 (09:33→21:36)
[2018-06-10] MEDS: HYDROcodone/APAP 10-325MG 1 EACH TAB PO SCH ×4 (09:33→21:36)
[2018-06-10] MEDS: ESCITALOPRAM 20 MG TAB PO SCH (09:33)
[2018-06-10] MEDS: CALCIUM CARBONATE 500 MG CHEWABLE PO SCH ×3 (09:33→21:36)
[2018-06-10 09:55] LABS: Albumin 2.5 g/dL (3.5-5.0); Calcium 8.7 mg/dL (8.4-10.2); Total Bilirubin 0.5 mg/dL (0.2-1.3); Total Protein 5.8 g/dL (6.3-8.2)
[2018-06-10 10:17] LABS: Potassium 5.6 mmol/L (3.5-5.1)
[2018-06-10 10:22] LABS: Anisocytosis Slight; Basophils % (A) 1 %; Eosinophils # (A) 0.2 k/uL (0-0.7); Eosinophils % (A) 4 %; HGB 9.2 gm/dL (11.4-16.0); Hypochromasia Marked; Lymphocytes % (A) 22 %; MCH 27.3 pg (25.0-35.0); MCHC 29.8 g/dL (31.0-37.0); MCV 91.6 fL (80.0-100.0); Mean Platelet Volume 9.3; Monocytes # (A) 0.6 k/uL (0-1.0); Monocytes % (A) 14 %; Neutrophils # (A) 2.7 k/uL (1.3-7.7); Neutrophils % (A) 58 %; RBC 3.39 m/uL (3.80-5.40); RDW 16.3 % (11.5-15.5); WBC 4.7 k/uL (3.8-10.6)
[2018-06-10 11:08] LABS: Platelet Count 121 k/uL (150-450)
--- NOTE | 2018-06-10 16:43 | P.PN ---
Subjective Progress Note Date: 06/10/18 The patient has been treated with antibiotics and will be set up for exchange of a double j catheter right on 06/11/2018 Objective - Vital Signs Vital signs: Vital Signs Temp 98.3 F 06/10/18 15:00 Pulse 88 06/10/18 15:00 Resp 16 06/10/18 15:00 BP 102/66 06/10/18 15:00 Pulse Ox 96 06/10/18 15:00 Intake & Output 06/09/18 06/10/18 06/10/18 18:59 06:59 18:59 Intake Total 1114 1196 Output Total 1000 Balance 1114 -1000 1196 Intake: IV 600 Sodium Chloride 0.9% 1, 600 000 ml @ 75 mls/hr IV . [id number] [facility] Rx#:[id number] Oral 1114 596 Output: Urine 1000 Other: Voiding Method Indwelling Catheter Indwelling Catheter Indwelling Catheter # Voids 1 - Labs CBC & Chem 7: 06/10/18 08:18 06/10/18 08:18 Labs: Abnormal Lab Results - Last 24 Hours (Table) 06/10/18 06/10/18 Range/Units 08:18 08:18 RBC 3.39 L (3.80-5.40) m/uL Hgb 9.2 L (11.4-16.0) gm/dL Hct 31.0 L (34.0-46.0) % MCHC 29.8 L (31.0-37.0) g/dL RDW 16.3 H (11.5-15.5) % Plt Count 121 L (150-450) k/uL Potassium 5.6 H (3.5-5.1) mmol/L Chloride 121 H (98-107) mmol/L Carbon Dioxide 18 L (22-30) mmol/L BUN 62 H (7-17) mg/dL Creatinine 1.78 H (0.52-1.04) mg/dL Glucose 140 H (74-99) mg/dL AST 51 H (14-36) U/L Alkaline Phosphatase 203 H (38-126) U/L Total Protein 5.8 L (6.3-8.2) g/dL Albumin 2.5 L (3.5-5.0) g/dL
[2018-06-10] MEDS: ERTAPENEM 1 GM in SODIUM CHLORIDE 0.9% 50 ML IVPB SCH (16:47)
[2018-06-10] MEDS: CHOLECALCIFEROL 1,000 UNIT TAB PO SCH (17:17)
[2018-06-10] MEDS: ASPIRIN 325 MG TAB PO SCH (17:17)
[2018-06-10] MEDS: MULTIVITAMINS, THERA 1 EACH TAB PO SCH (17:21)
[2018-06-10] MEDS: ARIPiprazole 2 MG TAB PO SCH (21:37)
--- NOTE | 2018-06-10 21:46 | PN ---
PROGRESS NOTE The patient is seen for followup for acute kidney injury. The renal function is improving. Patient is maintained on normal saline at 75 mL an hour. Potassium remains elevated. The patient is maintained on oral sodium bicarb. She is not receiving any medications to promote the hyperkalemia. The patient does have obstructive uropathy with right hydronephrosis and patient has an atrophic left kidney. She is being considered for stent exchange by Urology. PHYSICAL EXAMINATION: On examination today, blood pressure was 102/66, heart rate 88 per minute. Patient is afebrile. Examination of the heart S1, S2. Examination of the lungs bilateral breath sounds are heard. ABDOMEN: Soft. Examination of lower extremities shows no significant edema. LAB: Show sodium 143, potassium 5.6, chloride 121, CO2 is 18, BUN 62, serum creatinine 1.78. ASSESSMENT: 1. Acute kidney injury, obstructive uropathy. The patient will be going for stent exchange tomorrow with Urology. 2. Hyperkalemia secondary to obstructive uropathy and renal failure, stable. Expect improvement post relief of urinary tract obstruction. 3. Metabolic acidosis. Maintained on oral sodium bicarb which I will continue for now. 4. Atrophic left kidney. 5. Chronic kidney disease with previous creatinine at 1.3 mg/dL in August of 2017. 6. Urinary tract infection. Urine culture grew E coli. Patient is maintained on antibiotics. PLAN: Continue with normal saline for now. Repeat labs in a.m. Followup post ureteral stent exchange. MMODL / IJN: [id number] /
--- NOTE | 2018-06-10 23:40 | PN ---
PROGRESS NOTE DATE OF SERVICE: 06/10/2018. REASON FOR FOLLOWUP: Urinary tract infection complicated with right-sided hydronephrosis. INTERVAL HISTORY: The patient is afebrile. The patient's abdominal pain is in the right lower abdominal area with some nausea. Denies any chest pain, shortness of breath or cough. No diarrhea. PHYSICAL EXAMINATION: Blood pressure 107/54 with a pulse of 77, temperature 98.4. He is 96% on room air. GENERAL DESCRIPTION: An elderly female, lying in bed in no distress. RESPIRATORY SYSTEM: Unlabored breathing. Clear to auscultation anteriorly. HEART: S1, S2. Regular rate and rhythm. ABDOMEN: Soft. Mild tenderness. LABS: Hemoglobin 9.8, white count 4.7, BUN of , creatinine 1.78. DIAGNOSTIC IMPRESSION AND PLAN: Patient with complicated E coli right-sided UTI with pyelonephritis. The patient's antibiotic will be transitioned to Invanz 1 g and in home outpatient setting. Also placement tomorrow. She already has a midline. Continue on Invanz for at least another 2 weeks in the outpatient setting. Plan of care was discussed with admitting physician. MMODL / IJN: [id number] /
[2018-06-11] MEDS: LEVOTHYROXINE 50 MCG TAB PO SCH (00:44)
[2018-06-11] MEDS: SODIUM CHLORIDE 0.9% 1,000 ML IV SCH ×2 (04:46→14:28)
[2018-06-11] MEDS: HYDROcodone/APAP 10-325MG 1 EACH TAB PO SCH ×4 (08:04→21:58)
[2018-06-11 09:31] LABS: Calcium 8.8 mg/dL (8.4-10.2)
[2018-06-11] MEDS: CALCIUM CARBONATE 500 MG CHEWABLE PO SCH ×3 (10:19→21:57)
[2018-06-11] MEDS: SODIUM BICARBONATE TAB 650 MG TAB PO SCH ×2 (10:19→21:57)
[2018-06-11] MEDS: ESCITALOPRAM 20 MG TAB PO SCH (10:19)
[2018-06-11] MEDS: ERTAPENEM 1 GM in SODIUM CHLORIDE 0.9% 50 ML IVPB SCH (10:24)
[2018-06-11] MEDS ORDERED: IV FLUID CONTINUATION 1,000 ML IV ONE (12:09)
[2018-06-11] MEDS ORDERED: LIDOCAINE 1% INJ 10MG/ML (20 ML MDV) ONE (12:33)
[2018-06-11] MEDS ORDERED: fentaNYL (PF) 50 MCG/ML 2 ML AMP ONE (12:33)
[2018-06-11] MEDS ORDERED: PROPOFOL 10 MG/ML 20 ML VIAL IV ONE (12:33)
--- NOTE | 2018-06-11 12:56 | P.OP ---
Date of Procedure: 06/11/18 Preoperative Diagnosis: Right hydronephrosis Postoperative Diagnosis: Same Procedure(s) Performed: Cystoscopy exchange of double-J catheter right 6 x 24 Anesthesia: MAC Surgeon: Dorian Contreras Pathology: none sent Condition: stable Disposition: PACU Indications for Procedure: Patient is 67. 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 She comes for exchange of stent we discussed alternatives. Description of Procedure: Patient was brought to the operating suite. She is given IV sedation. She's placed lithotomy position with a sterile prep and drape. Cystoscopy Foroblique lens and 23-[place]oran sheath identifies irritative bladder. There is a stent noted. His grasped and pulled the urethral meatus. Through the stone out 35 wires passed up in the renal pelvis. I removed the old stent and place a new 6 x 24 double-J cath that coils in the renal pelvis and the bladder. The bladder strain the patient's awake and returned recovery in good good condition. She comes procedure well. End of dictation
--- NOTE | 2018-06-11 13:15 | P.OP ---
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 She had uterine cancer and radiation therapy for that. She developed scarring of her distal ureters leading to bilateral hydronephrosis. She has double-J catheters. We've discussed alternative treatment she's declined she comes for stent exchange Description of Procedure: Patient brought operating suite and given IV sedation. Placed lithotomy position with sterile prep and drape. Cystoscopy Foroblique lens and 23-Slovak sheath identifies a normal urethra. The bladder wall is inflamed chronically. There bilateral double-J catheters. The left is grasped and pulled the urethral meatus. Both the an 035 wires passed through the stent passed up into the kidney. The double-J cath was removed and a new 6 x 24 double-J catheters placed coils in the renal pelvis and the bladder. I do the same on the right side in the same manner. The bladder is drained King catheters placed patien t's awake and returned recovery in good condition. She'll be discharged home upon recovery and follow-up in 2 weeks patient
--- NOTE | 2018-06-11 13:54 | FL ---
EXAMINATION TYPE: FL guidance operating room DATE OF EXAM: 06/11/2018 HISTORY: Flouroscopy time 14 seconds of fluoroscopy provided. IMPRESSION: 1. Fluoroscopy time.
--- NOTE | 2018-06-11 15:34 | PN ---
PROGRESS NOTE DATE OF SERVICE: 06/11/2018. REASON FOR FOLLOWUP: Complicated urinary tract infection, E. coli. INTERVAL HISTORY: The patient is currently afebrile. She is breathing comfortably. Patient is scheduled for a exchange of ureteral stent on the right side this afternoon. The patient denies having any chest pain, shortness of breath or cough. Still has some nausea and right- sided abdominal pain. No diarrhea. PHYSICAL EXAMINATION: Blood pressure 119/55 with a pulse of 74, temperature is 97.4. She is 96% on room air. General description is an elderly female lying in bed in no distress. Respiratory system: Unlabored breathing with decreased breath sounds in the bases. Heart S1, S2. Regular rate and rhythm. Abdomen soft, no tenderness. LABS: Hemoglobin 9.8, white count 4.7, BUN of , creatinine 1.74. DIAGNOSTIC IMPRESSION AND PLAN: Patient with multidrug resistant E coli urinary tract infection in this patient who does have multiple antibiotic allergies. Antibiotic has been transitioned to Invanz 1 g daily to continue for another 2 weeks in the outpatient setting to finish course of therapy. Continue supportive care. Prescription was left with the nurse. MMODL / IJN: [id number] /
--- NOTE | 2018-06-11 15:35 | PN ---
PROGRESS NOTE She has a drug-resistant UTI. An IV is . A PICC line has been placed. Waiting for ureteral stent to be replaced. She has hyperkalemia due to renal insufficiency and hydronephrosis in the right kidney. Cardiovascular S1, S2. Lungs are clear. GI soft. Hematology: Negative Homans. Psych: Fair mood and affect. ASSESSMENT: 1. Status post ureteral stent replacement. 2. Hyperkalemia. 3. Renal insufficiency. 4. Drug-resistant urinary tract infection. Continue current treatment on IV antibiotics and PICC line. Possible discharge home after stent placement. MMODL / IJN: [id number] /
[2018-06-11] MEDS: CHOLECALCIFEROL 1,000 UNIT TAB PO SCH (17:43)
[2018-06-11] MEDS: MULTIVITAMINS, THERA 1 EACH TAB PO SCH (17:43)
[2018-06-11] MEDS: ASPIRIN 325 MG TAB PO SCH (17:43)
--- NOTE | 2018-06-11 19:53 | PN ---
PROGRESS NOTE Patient is seen for followup for acute kidney injury. She is scheduled for urological surgery with stent placement today. Patient was seen this morning prior to her surgery. It looks like she did have the procedure, which was cystoscopy and bilateral double-J catheter placement. On examination this morning, patient was comfortable. Blood pressure was 114/62, heart rate of 70 per minute. Patient is afebrile. EXAMINATION OF THE HEART: S1 and S2. EXAMINATION OF LUNGS: Decreased breath sounds at bases. ABDOMEN: Soft, non-tender. Examination of lower extremities shows no evidence of edema. FAMILY DINNER SERVICE SPECIALIST exam is grossly intact. Labs reveal sodium of 144, potassium 5.0, chloride 122, CO2 is 18, BUN 57, serum creatinine 1.74. ASSESSMENT: 1. Acute kidney injury secondary to obstructive uropathy with hydronephrosis. Patient has an atrophic left kidney and she has right hydronephrosis, currently scheduled for stent placement. 2. Hyperkalemia associated with obstructive uropathy and renal failure, improved. 3. Metabolic acidosis associated with renal failure. 4. Urinary tract infection. Urine culture growing E coli. 5. Chronic kidney disease with previous creatinine 1.3 mg/dL. Etiology nephrosclerosis with atrophic left kidney and obstructive uropathy from radiation cystitis and scarring and hydronephrosis. PLAN: Continue with IV fluids. Continue oral sodium bicarb. Repeat labs in a.m. MMODL / IJN: [id number] /
[2018-06-11] MEDS: ARIPiprazole 2 MG TAB PO SCH (21:58)
[2018-06-12] MEDS: LEVOTHYROXINE 50 MCG TAB PO SCH (05:18)
[2018-06-12 07:34] VITALS: BP 105/61; PULSE 81; RESP 12; TEMP 98.8
[2018-06-12] MEDS: SODIUM CHLORIDE 0.9% 1,000 ML IV SCH ×2 (08:09→13:48)
[2018-06-12 08:41] LABS: Anisocytosis Slight; Basophils % (A) 1 %; Eosinophils # (A) 0.2 k/uL (0-0.7); Eosinophils % (A) 6 %; HCT 28.4 % (34.0-46.0); HGB 8.4 gm/dL (11.4-16.0); Hypochromasia Marked; Lymphocytes # (A) 0.9 k/uL (1.0-4.8); Lymphocytes % (A) 25 %; MCH 27.2 pg (25.0-35.0); MCHC 29.7 g/dL (31.0-37.0); MCV 91.7 fL (80.0-100.0); Mean Platelet Volume 8.2; Monocytes # (A) 0.2 k/uL (0-1.0); Monocytes % (A) 6 %; Neutrophils # (A) 2.1 k/uL (1.3-7.7); Neutrophils % (A) 61 %; RDW 16.5 % (11.5-15.5); WBC 3.5 k/uL (3.8-10.6)
[2018-06-12] MEDS: CALCIUM CARBONATE 500 MG CHEWABLE PO SCH (08:48)
[2018-06-12] MEDS: SODIUM BICARBONATE TAB 650 MG TAB PO SCH (08:48)
[2018-06-12] MEDS: ONDANSETRON 4 MG/2 ML VIAL IVP PRN (08:48)
[2018-06-12] MEDS: HYDROcodone/APAP 10-325MG 1 EACH TAB PO SCH ×2 (08:49→12:27)
[2018-06-12] MEDS: ERTAPENEM 1 GM in SODIUM CHLORIDE 0.9% 50 ML IVPB SCH (08:49)
[2018-06-12] MEDS: ESCITALOPRAM 20 MG TAB PO SCH (08:49)
[2018-06-12 08:52] LABS: Platelet Count 186 k/uL (150-450)
[2018-06-12 08:54] LABS: Albumin 2.3 g/dL (3.5-5.0); Calcium 8.6 mg/dL (8.4-10.2); Potassium 4.5 mmol/L (3.5-5.1); Total Bilirubin 0.5 mg/dL (0.2-1.3); Total Protein 5.5 g/dL (6.3-8.2)
[2018-06-12 09:22] LABS: Poikilocytosis (M) Present
--- NOTE | 2018-06-12 17:39 | PN ---
PROGRESS NOTE Patient is seen for followup for acute kidney injury on top of chronic kidney disease. Patient had exchange of double-J catheter on the right side by Dr. Contreras yesterday. Patient is comfortable. She denies any significant complaints. Labs are somewhat improved. On examination today, blood pressure was 96/55 earlier in the night. This morning it was 105/61, heart rate 81 per minute. EXAMINATION OF THE HEART: S1 and S2. EXAMINATION OF LUNGS: Bilateral breath sounds are heard. ABDOMEN: Soft. Minimal tenderness noted, mid abdomen. Examination of lower extremities shows trace edema. ENTERPRISE INTEGRATION ARCHITECT exam is grossly intact. Labs show sodium 144, potassium 4.5, chloride 120, BUN 48, serum creatinine 1.64. ASSESSMENT: 1. Acute kidney injury secondary to obstructive uropathy with right hydronephrosis. Patient has an atrophic left kidney, status post double-J catheter exchange by Dr. Contreras yesterday. 2. Hyperkalemia associated with obstructive uropathy, currently improved. 3. Chronic kidney disease, stage III, with baseline creatinine about 1.3. Patient has atrophic left kidney and obstructive uropathy from radiation cystitis, scarring and hydronephrosis. PLAN: 1. Continue with IV fluids. Encourage increased oral intake. May continue with oral sodium bicarb. Increase dose if acidosis is worse tomorrow. 2. Urinary tract infection with urine culture growing Escherichia coli. PLAN: Continue IV fluids. Continue oral sodium bicarb. Repeat labs in a.m. MMODL / IJN: [id number] /
== END 2018-06-12 17:10 | disposition home health service (06) | DRG 660 ==
LOC: 4SSUR 10:38
PROVIDERS: ADMIT Family Medicine; ATTEND Family Medicine
PROC: 05H633Z Insertion of Infusion Device into Left Subclavian Vein, Percutaneous Approach (ICD-10-PCS; 2018-06-10)
PROC: 0TP98DZ Removal of Intraluminal Device from Ureter, Via Natural or Artificial Opening Endoscopic (ICD-10-PCS; 2018-06-11)
PROC: 0T788DZ Dilation of Bilateral Ureters with Intraluminal Device, Via Natural or Artificial Opening Endoscopic (ICD-10-PCS; principal; 2018-06-11 10:55)
DX: N30.40 Irradiation cystitis without hematuria (principal); N13.6 Pyonephrosis; D84.9 Immunodeficiency, unspecified; E87.2 Acidosis; N17.9 Acute kidney failure, unspecified; E03.9 Hypothyroidism, unspecified; I10 Essential (primary) hypertension; F32.9 Major depressive disorder, single episode, unspecified; Z16.24 Resistance to multiple antibiotics; Y84.2 Radiological procedure and radiotherapy as the cause of abnormal reaction of the patient, or of later complication, without mention of misadventure at the time of the procedure; K74.60 Unspecified cirrhosis of liver; I12.9 Hypertensive chronic kidney disease with stage 1 through stage 4 chronic kidney disease, or unspecified chronic kidney disease; N27.0 Small kidney, unilateral; N18.3 Chronic kidney disease, stage 3 (moderate); N39.41 Urge incontinence; B96.20 Unspecified Escherichia coli [E. coli] as the cause of diseases classified elsewhere; F39 Unspecified mood [affective] disorder; E87.5 Hyperkalemia; Z79.82 Long term (current) use of aspirin; Z79.890 Hormone replacement therapy; Z79.891 Long term (current) use of opiate analgesic; Z79.899 Other long term (current) drug therapy; Z87.440 Personal history of urinary (tract) infections; Z85.3 Personal history of malignant neoplasm of breast; Z85.42 Personal history of malignant neoplasm of other parts of uterus; Z85.118 Personal history of other malignant neoplasm of bronchus and lung; Z90.49 Acquired absence of other specified parts of digestive tract; Z90.710 Acquired absence of both cervix and uterus; Z90.13 Acquired absence of bilateral breasts and nipples; Z90.2 Acquired absence of lung [part of]; Z87.891 Personal history of nicotine dependence; Z88.1 Allergy status to other antibiotic agents; Z85.820 Personal history of malignant melanoma of skin; Z82.5 Family history of asthma and other chronic lower respiratory diseases
CPT/HCPCS: 36410; 76770; 76937; 80048; 80053; 81001; 83605; 85025; 87077; 87086; 87186

== ENCOUNTER 2018-06-30 10:34 | Inpatient (IN) | payer MEDICARE, OTHER ==
--- NOTE | 2018-06-30 11:42 | ED ---
General Adult HPI - General Chief complaint: Extremity Problem,Nontraumatic Stated complaint: swelling all over, 40 lb weight gain Time Seen by Provider: 06/30/18 11:15 Source: patient, family, RN notes reviewed Mode of arrival: wheelchair Limitations: physical limitation - History of Present Illness Initial comments: Patient is a pleasant 67-year-old female presenting to the emergency Department with leg edema. Symptoms have progressed with the past couple weeks. Patient has gained approximately 40 pounds. Patient does have some orthopnea. No chest pain. No history of similar symptoms previously. Patient did have recent stents placed for her kidneys. Patient did see her doctor this morning and was advised to come to the hospital for admission. - Related Data Home Medications Medication Instructions Recorded Confirmed Levothyroxine Sodium [Synthroid] 50 mcg PO DAILY@0600 07/04/17 06/30/18 Escitalopram Oxalate [Lexapro] 20 mg PO DAILY 07/06/17 06/30/18 Cholecalciferol [Vitamin D3] 2,000 unit PO DAILY@1700 07/22/17 06/30/18 Aspirin EC [Ecotrin] 325 mg PO DAILY@1700 08/30/17 06/30/18 Furosemide [Lasix] 20 mg PO DAILY@0600 08/30/17 06/30/18 ARIPiprazole [Abilify] 2 mg PO HS 06/04/18 06/30/18 Allergies Allergy/AdvReac Type Severity Reaction Status Date / Time VANESSA Inhibitors Allergy Unknown Verified 06/30/18 11:27 baclofen Allergy Confusion Verified 06/30/18 11:27 cefepime HCl [From Maxipime] Allergy Rash/Hives Verified 06/30/18 11:27 cephalexin Allergy Rash/Hives Verified 06/30/18 11:27 ciprofloxacin Allergy Rash/Hives Verified 06/30/18 11:27 clindamycin Allergy Nausea & Verified 06/30/18 11:27 Vomiting erythromycin base Allergy Rash/Hives Verified 06/30/18 11:27 heparin Allergy Unknown Verified 06/30/18 11:27 lisinopril [From Zestril] Allergy Unknown Verified 06/30/18 11:27 lorazepam [From Ativan] Allergy Confusion Verified 06/30/18 11:27 metronidazole [From Flagyl] Allergy Nausea & Verified 06/30/18 11:27 Vomiting penicillin G Allergy Rash/Hives Verified 06/30/18 11:27 shellfish derived [Shellfish] Allergy Swelling Verified 06/30/18 11:27 Sulfa (Sulfonamide Allergy Swelling Verified 06/30/18 11:27 Antibiotics) steroids Allergy Unknown Uncoded 06/30/18 11:15 Review of Systems ROS Statement: Those systems with pertinent positive or pertinent negative responses have been documented in the HPI. ROS Other: All systems not noted in ROS Statement are negative. Constitutional: Denies: fever Eyes: Denies: eye pain ENT: Denies: ear pain Respiratory: Reports: dyspnea Cardiovascular: Reports: orthopnea, edema. Denies: chest pain Endocrine: Reports: fatigue Gastrointestinal: Denies: abdominal pain Genitourinary: Denies: dysuria Musculoskeletal: Denies: back pain Skin: Denies: rash Neurological: Denies: headache Past Medical History Past Medical History: Blood Disorder, Cancer, Deep Vein Thrombosis (DVT), GI Bleed, Liver Disease, Respiratory Disorder Additional Past Medical History / Comment(s): 09-10-14 admitted to [facility] with c/o blood in urine and rectal bleeding, DX GI BLEED AND UTI. other hx: Breast Ca x2; Skin Ca squamous and melanoma; uterine ca, lung cancer LOWER LEFT LOBE 70%, c-diff- 6-5-15 snd feb 2017, on xarelto for dvt and portal vein thrombosis. 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 Wound to BACK r/t lung CA, healed 6 months ago History of Any Multi-Drug Resistant Organisms: MRSA Date of last positivie culture/infection: 09/17/17 MDRO Source:: MRSA URINE Past Surgical History: Adenoidectomy, Appendectomy, Breast Surgery, Cholecystectomy, Hysterectomy, Orthopedic Surgery, Tonsillectomy Additional Past Surgical History / Comment(s): Mastectomy bilateral; Left lower lobectomy 70%; exploratory laparotomy, LASER SX AT [facility] FOR MELANOMA- CURRENTLY HAS 100 SPOTS THAT THEY ARE WATCHING REMMOVED 4 SO FAR.lasik eye sx, past "abcess on back(ecoli) pt stated they had to open a channel,removed 2 ribs and some muscle and it was open to drain to 18 months". surgical repair to Right wrist, right femur, and right hip in 2018 Additional Past Anesthesia/Blood Transfusion Reaction / Comment(s): PAST BLOOD TRANSFUSIONS- NO COMPLICATIONS Past Psychological History: Depression Smoking Status: Former smoker Past Alcohol Use History: None Reported Past Drug Use History: None Reported - Past Family History Father Additional Family Medical History / Comment(s): FROM COMPLICATIONS OF SCHRAPNEL IN BODY Mother Additional Family Medical History / Comment(s): STOMACH PROBLEMS, EMPHYSEMA General Exam Limitations: physical limitation General appearance: alert, in no apparent distress Head exam: Present: atraumatic Eye exam: Present: normal appearance, PERRL ENT exam: Present: normal oropharynx Neck exam: Present: normal inspection Respiratory exam: Present: decreased breath sounds Cardiovascular Exam: Present: regular rate, normal rhythm Expanded Peripheral pulses: 2+: Dorsalis Pedis (R), Dorsalis Pedis (L) GI/Abdominal exam: Present: soft. Absent: tenderness Extremities exam: Present: pedal edema (+4 bilaterally). Absent: calf tenderness Neurological exam: Present: alert Psychiatric exam: Present: normal affect, normal mood Skin exam: Present: normal color Course Vital Signs 06/30/18 06/30/18 11:13 15:26 Temperature 98.5 F Pulse Rate 94 85 Respiratory 18 16 Rate Blood Pressure 124/72 129/62 O2 Sat by Pulse 98 98 Oximetry - Reevaluation(s) Reevaluation #1: 06/30/18 15:35 Dr. Noble has been paged. 06/30/18 15:50 Case was discussed with Dr. Sanchez, who will consult. He does request renal ultrasound. EKG Findings - EKG Comments: EKG Findings:: Normal sinus rhythm 79. IL 124. QRS 80. QT 382. QTC 4:30. Normal axis. Normal QRS. No acute ST change. Medical Decision Making - Medical Decision Making Patient reevaluated and updated. Case was discussed with Dr. Collado, who will admit his patient. He would like consults with cardiology and neurology who has previously seen this patient. Patient states she does see Dr. Noble. Patient is unclear she had ureteral stents placed. - Lab Data Result diagrams: 06/30/18 12:30 06/30/18 12:30 Lab Results 06/30/18 06/30/18 06/30/18 Range/Units 12:30 12:30 12:30 WBC 4.7 (3.8-10.6) k/uL RBC 3.07 L (3.80-5.40) m/uL Hgb 8.5 L (11.4-16.0) gm/dL Hct 27.4 L (34.0-46.0) % MCV 89.1 (80.0-100.0) fL MCH 27.7 (25.0-35.0) pg MCHC 31.1 (31.0-37.0) g/dL RDW 16.8 H (11.5-15.5) % Plt Count 240 (150-450) k/uL Neutrophils % 67 % Lymphocytes % 18 % Monocytes % 7 % Eosinophils % 5 % Basophils % 0 % Neutrophils # 3.2 (1.3-7.7) k/uL Lymphocytes # 0.8 L (1.0-4.8) k/uL Monocytes # 0.3 (0-1.0) k/uL Eosinophils # 0.2 (0-0.7) k/uL Basophils # 0.0 (0-0.2) k/uL Hypochromasia Moderate Anisocytosis Slight PT (9.0-12.0) sec INR (<1.2) APTT (22.0-30.0) sec Sodium 141 (137-145) mmol/L Potassium 4.9 (3.5-5.1) mmol/L Chloride 118 H (98-107) mmol/L Carbon Dioxide 14 L (22-30) mmol/L Anion Gap 9 mmol/L BUN 39 H (7-17) mg/dL Creatinine 3.26 H (0.52-1.04) mg/dL Est GFR (CKD-EPI)AfAm 16 (>60 ml/min/1.73 sqM) Est GFR (CKD-EPI)NonAf 14 (>60 ml/min/1.73 sqM) Glucose 87 (74-99) mg/dL Calcium 8.1 L (8.4-10.2) mg/dL Total Bilirubin 0.4 (0.2-1.3) mg/dL AST 39 H (14-36) U/L ALT 31 (9-52) U/L Alkaline Phosphatase 197 H (38-126) U/L Creatine Kinase 59 (30-135) U/L Troponin I (0.000-0.034) ng/mL NT-Pro-B Natriuret Pep 2070 pg/mL Total Protein 6.1 L (6.3-8.2) g/dL Albumin 2.8 L (3.5-5.0) g/dL 06/30/18 06/30/18 Range/Units 12:30 12:30 WBC (3.8-10.6) k/uL RBC (3.80-5.40) m/uL Hgb (11.4-16.0) gm/dL Hct (34.0-46.0) % MCV (80.0-100.0) fL MCH (25.0-35.0) pg MCHC (31.0-37.0) g/dL RDW (11.5-15.5) % Plt Count (150-450) k/uL Neutrophils % % Lymphocytes % % Monocytes % % Eosinophils % % Basophils % % Neutrophils # (1.3-7.7) k/uL Lymphocytes # (1.0-4.8) k/uL Monocytes # (0-1.0) k/uL Eosinophils # (0-0.7) k/uL Basophils # (0-0.2) k/uL Hypochromasia Anisocytosis PT 10.0 (9.0-12.0) sec INR 0.9 (<1.2) APTT 19.9 L (22.0-30.0) sec Sodium (137-145) mmol/L Potassium (3.5-5.1) mmol/L Chloride (98-107) mmol/L Carbon Dioxide (22-30) mmol/L Anion Gap mmol/L BUN (7-17) mg/dL Creatinine (0.52-1.04) mg/dL Est GFR (CKD-EPI)AfAm (>60 ml/min/1.73 sqM) Est GFR (CKD-EPI)NonAf (>60 ml/min/1.73 sqM) Glucose (74-99) mg/dL Calcium (8.4-10.2) mg/dL Total Bilirubin (0.2-1.3) mg/dL AST (14-36) U/L ALT (9-52) U/L Alkaline Phosphatase (38-126) U/L Creatine Kinase (30-135) U/L Troponin I <0.012 (0.000-0.034) ng/mL NT-Pro-B Natriuret Pep pg/mL Total Protein (6.3-8.2) g/dL Albumin (3.5-5.0) g/dL - Radiology Data Radiology results: image reviewed (Abdominal x-ray shows nonspecific abdomen. Bilateral ureteral stents. Two-view chest x-ray shows stable findings. Mild atelectasis with possible small right effusion.) Disposition Clinical Impression: Renal insufficiency, Leg edema Disposition: ADMITTED IP TO THIS HOSP Is patient prescribed a controlled substance at d/c from ED?: No Referrals: Miles Collado MD [Primary Care Provider] - 1-2 days Decision Time: 15:22
[2018-06-30 12:40] LABS: Anisocytosis Slight; Basophils % (A) 0 %; Eosinophils # (A) 0.2 k/uL (0-0.7); Eosinophils % (A) 5 %; HCT 27.4 % (34.0-46.0); HGB 8.5 gm/dL (11.4-16.0); Hypochromasia Moderate; Lymphocytes # (A) 0.8 k/uL (1.0-4.8); Lymphocytes % (A) 18 %; MCH 27.7 pg (25.0-35.0); MCHC 31.1 g/dL (31.0-37.0); MCV 89.1 fL (80.0-100.0); Mean Platelet Volume 7.8; Monocytes # (A) 0.3 k/uL (0-1.0); Monocytes % (A) 7 %; Neutrophils # (A) 3.2 k/uL (1.3-7.7); Neutrophils % (A) 67 %; Platelet Count 240 k/uL (150-450); RBC 3.07 m/uL (3.80-5.40); RDW 16.8 % (11.5-15.5); WBC 4.7 k/uL (3.8-10.6)
[2018-06-30 12:56] LABS: Albumin 2.8 g/dL (3.5-5.0); Calcium 8.1 mg/dL (8.4-10.2); Potassium 4.9 mmol/L (3.5-5.1); Total Bilirubin 0.4 mg/dL (0.2-1.3); Total Protein 6.1 g/dL (6.3-8.2)
[2018-06-30 12:59] LABS: INR 0.9 (<1.2)
[2018-06-30 13:08] LABS: Partial Thromboplastin Time 19.9 sec (22.0-30.0)
--- NOTE | 2018-06-30 14:00 | XR ---
EXAMINATION TYPE: XR abdomen 1V DATE OF EXAM: 06/30/2018 COMPARISON: 10/04/2014 INDICATION: Kidney stent leg swelling TECHNIQUE: Single view abdomen upright view FINDINGS: There is a normal bowel gas pattern. Psoas margins are normal. No organomegaly is present. Bilateral ureteral stents are present. Multiple surgical clips are within the pelvis. A right hip med ullary raegan and pin is present Nonspecific bowel gas is present. There are some air-fluid levels within small bowel loops within the midabdomen. Air is within the colon. No free air is evident. There is likely some pleural effusion a t the right lung base. IMPRESSION: 1. Nonspecific abdomen. 2. Bilateral ureteral stents.
--- NOTE | 2018-06-30 14:01 | XR ---
EXAMINATION TYPE: XR chest 2V DATE OF EXAM: 06/30/2018 COMPARISON: 08/30/2017 INDICATION: Difficulty breathing history of lung cancer TECHNIQUE: Frontal and lateral views of the chest are obtained. FINDINGS: The heart size is normal. The pulmonary vasculature is normal. There appears to be some scarring at the left lung base. Surgical clips in the left infrahilar region . Some mild streak opacities at the right base. Correlate for atelectasis. Small amount of pleural ef fusion at the right base may be present. IMPRESSION: 1. Chest exam appears stable from prior study. Postsurgical changes left infrahilar region. 3. Mild atelectasis right lung base with possible small right pleural effusion.
[2018-06-30] MEDS ORDERED: NALOXONE 0.4 MG/ML 1 ML VIAL IV PRN (15:30)
--- NOTE | 2018-06-30 17:33 | US ---
EXAMINATION TYPE: US renals and bladder DATE OF EXAM: 06/30/2018 COMPARISON: US 2018 CLINICAL HISTORY: Renal failure, ureteral stent. Renal failure, ureteral stent, right-sided hydroneph rosis. EXAM MEASUREMENTS: Limited study due to body habitus and gas. Right Kidney: 11.7 x 6.5 x 6.1 cm Left Kidney: 9.8 x 5.3 x 4.5 cm Post Void Residual Volume: Not performed Right Kidney: Severe hydronephrosis seen. Left Kidney: Very limited visibility. Bladder: Echogenic debris visualized. Limited imaging and visibility. Bilateral Jets seen: No Ascites visualized right upper quadrant and midline lower abdomen. IMPRESSION: There is abdominal ascites. There is cortical thinning and significant right-sided hydronephrosis. Le ft kidney poorly visualized. Left kidney evaluation is nondiagnostic for the presence of hydronephros is. Left kidney measures 7.8 cm in length on the old CT scan of 08/30/2017 and now appears to measure 9.8 cm and therefore I suspect hydronephrosis also in the left kidney.
[2018-06-30] MEDS: ONDANSETRON 4 MG/2 ML VIAL IVP PRN (18:11)
[2018-06-30] MEDS ORDERED: HYDROcodone/APAP 10-325MG 1 EACH TAB PO PRN (20:40)
[2018-06-30] MEDS: FUROSEMIDE 10 MG/ML 2 ML VIAL IV SCH (22:50)
[2018-06-30] MEDS: ARIPiprazole 2 MG TAB PO SCH (22:50)
[2018-06-30] MEDS: HYDROcodone/APAP 10-325MG 1 EACH TAB PO PRN (22:58)
[2018-07-01] MEDS: SODIUM CHLORIDE 0.9% 1,000 ML IV SCH ×2 (00:24→08:29)
[2018-07-01] MEDS: HYDROcodone/APAP 10-325MG 1 EACH TAB PO PRN ×2 (05:50→14:09)
[2018-07-01] MEDS: LEVOTHYROXINE 50 MCG TAB PO SCH (05:50)
[2018-07-01] MEDS ORDERED: FUROSEMIDE 20 MG TAB PO SCH (06:00)
[2018-07-01 08:07] LABS: Anisocytosis Slight; Basophils % (A) 1 %; Eosinophils # (A) 0.3 k/uL (0-0.7); Eosinophils % (A) 6 %; HCT 24.5 % (34.0-46.0); HGB 7.6 gm/dL (11.4-16.0); Hypochromasia Marked; Lymphocytes # (A) 0.7 k/uL (1.0-4.8); Lymphocytes % (A) 16 %; MCH 28.2 pg (25.0-35.0); MCHC 30.9 g/dL (31.0-37.0); MCV 91.1 fL (80.0-100.0); Mean Platelet Volume 7.6; Monocytes # (A) 0.3 k/uL (0-1.0); Monocytes % (A) 7 %; Neutrophils % (A) 69 %; Platelet Count 199 k/uL (150-450); RBC 2.69 m/uL (3.80-5.40); RDW 16.5 % (11.5-15.5); WBC 4.4 k/uL (3.8-10.6)
[2018-07-01 08:20] LABS: Albumin 2.3 g/dL (3.5-5.0); Calcium 7.9 mg/dL (8.4-10.2); Potassium 4.8 mmol/L (3.5-5.1); Total Bilirubin 0.3 mg/dL (0.2-1.3); Total Protein 5.4 g/dL (6.3-8.2)
[2018-07-01] MEDS: FUROSEMIDE 10 MG/ML 2 ML VIAL IV SCH (08:33)
[2018-07-01] MEDS: ESCITALOPRAM 20 MG TAB PO SCH (08:33)
[2018-07-01] MEDS: ONDANSETRON 4 MG/2 ML VIAL IVP PRN ×2 (08:34→18:23)
--- NOTE | 2018-07-01 12:06 | P.NPCON ---
History of Present Illness - Reason for Consult acute renal failure, chronic renal failure - History of Present Illness Reason for consultation: Acute kidney injury on chronic kidney disease History of present illness: Patient is a 67-year-old female seen in renal consultation for acute kidney injury on chronic kidney disease. Patient has chronic kidney disease stage III. Baseline creatinine near 1.3 secondary to nephrosclerosis. Creatinine this admission was 3.26 and is up at 3.37 today. Patient was admitted to the hospital earlier this month and had bilateral ureteral stents exchanged. Since she was discharged she has gained over 40 pounds and is complaining of severe edema in both her lower extremities. Renal ultrasound is suggestive of bilateral hydronephrosis. She has been voiding. No hematuria. No vomiting. Does admit to nausea. Denies chest pain or shortness of breath. Denies use of nonsteroidals. Hemodynamically stable. Blood pressures are in the systolic 90s. She is afebrile. Vital signs are stable. General: The patient appeared well nourished and normally developed. HEENT: Head exam is unremarkable. Neck is without jugular venous distension. LUNGS: Lungs are clear to auscultation and percussion. Breath sounds decreased. HEART: Rate and Rhythm are regular. First and second heart sounds normal. No murmurs, rubs or gallops. ABDOMEN: Abdominal exam reveals normal bowel sounds. Non-tender and non- distended. No evidence of peritonitis. EXTREMITITES: 2+ edema. Past Medical History Past Medical History: Blood Disorder, Cancer, Deep Vein Thrombosis (DVT), GI Bleed, Liver Disease, Respiratory Disorder Additional Past Medical History / Comment(s): 09-10-14 admitted to [facility] with c/o blood in urine and rectal bleeding, DX GI BLEED AND UTI. other hx: Breast Ca x2; Skin Ca squamous and melanoma; uterine ca, lung cancer LOWER LEFT LOBE 70%, c-diff- 6-5-15 snd feb 2017, on xarelto for dvt and portal vein thrombosis. NON ALCOHOLIC CIRRHOSIS CAUSED FROM INTRERNAL RADATION [place], HAS CLOTTING FACTOR DIS ORDER NOT FACTOR 5 UNSURE OF NAME, COLITIS,fall. Wound to BACK r/t lung CA, healed 6 months ago History of Any Multi-Drug Resistant Organisms: MRSA Date of last positivie culture/infection: 09/17/17 MDRO Source:: MRSA URINE Past Surgical History: Adenoidectomy, Appendectomy, Breast Surgery, Cholecyst ectomy, Hysterectomy, Orthopedic Surgery, Tonsillectomy Additional Past Surgical History / Comment(s): Mastectomy bilateral; Left lower lobectomy 70%; exploratory laparotomy, L[facility]ER SX AT [facility] FOR MELANOMA- CURRENTLY HAS 100 SPOTS THAT THEY ARE WATCHING REMMOVED 4 SO FAR.lasik eye sx, past "abcess on back(ecoli) pt stated they had to open a channel,removed 2 ribs and some muscle and it was open to drain to 18 months". surgical repair to Right wrist, right femur, and right hip in 2018 Additional Past Anesthesia/Blood Transfusion Reaction / Comment(s): PAST BLOOD TRANSFUSIONS- NO COMPLICATIONS Past Psychological History: Depression Additional Psychological History / Comment(s): LOW DOSE LEXAPRO, CURRENTLY NO DEPRESSION, PT normally lives at home with her zeeshan, however currently patient resides at [facility] due to right arm and hip fractures . pt started she had just recently started working w/pt getting up w/walker and assistance and transfer w/assistance to w/c Smoking Status: Former smoker Past Alcohol Use History: None Reported Additional Past Alcohol Use History / Comment(s): STARTED SMOKING AT AGE 13, SMOKED 1 PPD SMOKED FOR 3 YEARS THEN CUT DOWN TO ONLY SMOKING WHEN OUT WITH FRIENDS.QUIT 1978. Past Drug Use History: None Reported - Past Family History Father Additional Family Medical History / Comment(s): FROM COMPLICATIONS OF SCHRAPNEL IN BODY Mother Additional Family Medical History / Comment(s): STOMACH PROBLEMS, EMPHYSEMA Medications and Allergies Home Medications Medication Instructions Recorded Confirmed Type Levothyroxine Sodium [Synthroid] 50 mcg PO DAILY@0600 07/04/17 06/30/18 History Escitalopram Oxalate [Lexapro] 20 mg PO DAILY 07/06/17 06/30/18 History Cholecalciferol [Vitamin D3] 2,000 unit PO DAILY@1700 07/22/17 06/30/18 History Aspirin EC [Ecotrin] 325 mg PO DAILY@1700 08/30/17 06/30/18 History Furosemide [Lasix] 20 mg PO DAILY@0600 08/30/17 06/30/18 History ARIPiprazole [Abilify] 2 mg PO HS 06/04/18 06/30/18 History Allergies Allergy/AdvReac Type Severity Reaction Status Date / Time VAENSSA Inhibitors Allergy Unknown Verified 06/30/18 11:27 baclofen Allergy Confusion Verified 06/30/18 11:27 cefepime HCl [From Maxipime] Allergy Rash/Hives Verified 06/30/18 11:27 cephalexin Allergy Rash/Hives Verified 06/30/18 11:27 ciprofloxacin Allergy Rash/Hives Verified 06/30/18 11:27 clindamycin Allergy Nausea & Verified 06/30/18 11:27 Vomiting erythromycin base Allergy Rash/Hives Verified 06/30/18 11:27 heparin Allergy Unknown Verified 06/30/18 11:27 lisinopril [From Zestril] Allergy Unknown Verified 06/30/18 11:27 lorazepam [From Ativan] Allergy Confusion Verified 06/30/18 11:27 metronidazole [From Flagyl] Allergy Nausea & Verified 06/30/18 11:27 Vomiting penicillin G Allergy Rash/Hives Verified 06/30/18 11:27 shellfish derived [Shellfish] Allergy Swelling Verified 06/30/18 11:27 Sulfa (Sulfonamide Allergy Swelling Verified 06/30/18 11:27 Antibiotics) steroids Allergy Unknown Uncoded 06/30/18 11:15 Physical Exam Vitals: Vital Signs Temp Pulse Pulse Resp BP BP Pulse Ox 07/01/18 08:00 80 07/01/18 07:00 98.5 F 80 12 98/52 96 07/01/18 01:29 98.5 F 87 16 97/53 92 L 06/30/18 22:47 90 118/66 06/30/18 19:29 98.5 F 87 16 131/70 94 L 06/30/18 15:26 85 16 129/62 98 Intake and Output 06/30/18 07/01/18 07/01/18 22:59 06:59 14:59 Other: # Voids 1 1 Weight 91.9 kg Results - Lab Results Most recent lab results Calcium 7.9 mg/dL (8.4-10.2) L 07/01/18 07:30 07/01/18 07:30 07/01/18 07:30 Assessment and Plan Plan: Assessment: 1. Acute kidney injury secondary to obstructive uropathy. Creatinine 3.37 toda y. 2. Bilateral hydronephrosis. Patient had bilateral ureteral stents exchanged earlier this month. 3. Metabolic acidosis secondary to acute kidney injury. 4. Volume overload. 5. Anemia of chronic kidney disease. Iron deficiency. Plan: I will increase Lasix to 80 mg IV twice daily. Check iron studies. Add oral sodium bicarbonate. Await urology recommendations. Avoid nephrotoxins. Continue to monitor renal function and urine output. Thank you for the consultation. I will continue to follow patient with you during her hospital stay.
--- NOTE | 2018-07-01 13:38 | P.CRDCN ---
History of Present Illness History of present illness: This is a pleasant 67-year-old female past medical history significant for frequent urinary tract infections with hydronephrosis s/p ureteral stent placemen, atrophic left kidney, Double J-catheter exchange in place, breast cancer, skin cancer, uterine cancer, lung cancer and DVT in the past. She denies history of coronary artery disease, hypertension, dyslipidemia or diabetes mellitus. 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 We have been asked to see her in consultation for edema. She was recently admitted and discharged 06/24/2018 here with urinary tract infection with acute kidney injury and was receiving IV antibiotics at home. She states she started noticing increasing lower extremity swelling almost immediately upon going home. She also has been more short of breath over the last week. On discharge 06/11 she weight 72.4 kg and this admission she is 92.5 kg. She denies chest pain, dizziness or palpitations. EKG on arrival reveals sinus mechanism with no acute ST or T-wave abnormalities. Chest x-ray with evidence of right lung base small pleural effusion. Abdominal x-rays unremarkable. Laboratory data reviewed, WBC 4.4, hemoglobin 7.6, platelets 199, sodium 143, potassium 4.8, BUN 41, creatinine 3.37, cardiac enzymes negative 1, NT proBNP 2070, protein 5.4 and albumin 2.3. She has been initiated on Lasix IV 20 mg daily per primary care team. At the time of my exam: CONSTITUTIONAL: Denies fever. Denies chills. EYES: Denies blurred vision. Denies vision changes. Denies eye pain. EARS, NOSE, MOUTH & THROAT: Denies headache. Denies sore throat. Denies ear pain. CARDIOVASCULAR: Denies chest pain. Complains of shortness of breath. Denies orthopnea. Denies PND. Denies palpitations. RESPIRATORY: Denies cough. GASTROINTESTINAL: Denies abdominal pain. Denies diarrhea. Denies constipation. Denies nausea. Denies vomiting. MUSCULOSKELETAL: Denies myalgias. INTEGUMENTARY: Denies pruitis. Denies rash. NEUROLOGIC: Denies numbness. Denies tingling. Denies weakness. PSYCHIATRIC: Denies anxiety. Denies depression. ENDOCRINE: Denies fatigue. Denies weight change. Denies polydipsia. Denies polyurina. GENITOURINARY: Denies burning, hematuria or urgency with micturation. HEMATOLOGIC: Denies history of anemia. Denies bleeding. Blood pressure 90/52 heart rate 80 afebrile maintaining oxygen saturation on room GENERAL: This is a 67-year-old female in no apparent distress at the time of my examination. HEENT: Head is atraumatic, normocephalic. Pupils are equal, round. Sclerae anicteric. Conjunctivae are clear. Mucous membranes of the mouth are moist. Neck is supple. There is no jugular venous distention. No carotid bruit is heard. LUNGS: Clear to auscultation no wheezes, rales or rhonchi. No chest wall tenderness is noted on palpation or with deep breathing. HEART: Regular rate and rhythm without murmurs, rubs or gallops. S1 and S2 heard. ABDOMEN: Soft, nontender. Bowel sounds are heard. No organomegaly noted. EXTREMITIES: Significant bilateral lower extremity edema, non-pitting, that goes all the way up her legs to mid-thigh. No calf tenderness noted. VASCULAR: Radial and dorsalis pedis pulses palpated, no evidence of clubbing. NEUROLOGIC: Patient is awake, alert and oriented x3. ASSESSMENT Acute on chronic renal failure Fluid overload related to acute renal failure Normocytic normochromic anemia PLAN Fluid overload seems to be related to acute kidney injury, not heart failure. However, will obtain echo to assess cardiac structure and function to be sure. Nephrology will manage the lasix. Thank you kindly for this consultation. Nurse Practitioner note has been reviewed, I agree with a documented findings and plan of care. Patient was seen and examined. Past Medical History Past Medical History: Blood Disorder, Cancer, Deep Vein Thrombosis (DVT), GI Bleed, Liver Disease, Respiratory Disorder Additional Past Medical History / Comment(s): 09-10-14 admitted to [facility] with c/o blood in urine and rectal bleeding, DX GI BLEED AND UTI. other hx: Breast Ca x2; Skin Ca squamous and melanoma; uterine ca, lung cancer LOWER LEFT LOBE 70%, c-diff- 6-5-15 snd feb 2017, on xarelto for dvt and portal vein thrombosis. 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 Wound to BACK r/t lung CA, healed 6 months ago History of Any Multi-Drug Resistant Organisms: MRSA Date of last positivie culture/infection: 09/17/17 MDRO Source:: MRSA URINE Past Surgical History: Adenoidectomy, Appendectomy, Breast Surgery, Cholecystectomy, Hysterectomy, Orthopedic Surgery, Tonsillectomy Additional Past Surgical History / Comment(s): Mastectomy bilateral; Left lower lobectomy 70%; exploratory laparotomy, [facility]X AT [facility]- CUR RENTLY HAS 100 SPOTS THAT THEY ARE WATCHING REMMOVED 4 SO FAR.lasik eye sx, past "abcess on back(ecoli) pt stated they had to open a channel,removed 2 ribs and some muscle and it was open to drain to 18 months". surgical repair to Right wrist, right femur, and right hip in 2018 Additional Past Anesthesia/Blood Transfusion Reaction / Comment(s): PAST BLOOD TRANSFUSIONS- NO COMPLICATIONS Past Psychological History: Depression Additional Psychological History / Comment(s): LOW DOSE LEXAPRO, CURRENTLY NO DEPRESSION, PT normally lives at home with her zeeshan, however currently patient resides at [facility] due to right arm and hip fractures . pt started she had just recently started working w/pt getting up w/walker and assistance and transfer w/assistance to w/c Smoking Status: Former smoker Past Alcohol Use History: None Reported Additional Past Alcohol Use History / Comment(s): STARTED SMOKING AT AGE 13, SMOKED 1 PPD SMOKED FOR 3 YEARS THEN CUT DOWN TO ONLY SMOKING WHEN OUT WITH FRIENDS.QUIT 1978. Past Drug Use History: None Reported - Past Family History Father Additional Family Medical History / Comment(s): FROM COMPLICATIONS OF SCHRAPNEL IN BODY Mother Additional Family Medical History / Comment(s): STOMACH PROBLEMS, EMPHYSEMA Medications and Allergies Home Medications Medication Instructions Recorded Confirmed Type Levothyroxine Sodium [Synthroid] 50 mcg PO DAILY@0600 07/04/17 06/30/18 History Escitalopram Oxalate [Lexapro] 20 mg PO DAILY 07/06/17 06/30/18 History Cholecalciferol [Vitamin D3] 2,000 unit PO DAILY@1700 07/22/17 06/30/18 History Aspirin EC [Ecotrin] 325 mg PO DAILY@1700 08/30/17 06/30/18 History Furosemide [Lasix] 20 mg PO DAILY@0600 08/30/17 06/30/18 History ARIPiprazole [Abilify] 2 mg PO HS 06/04/18 06/30/18 History Allergies Allergy/AdvReac Type Severity Reaction Status Date / Time VANESSA Inhibitors Allergy Unknown Verified 06/30/18 11:27 baclofen Allergy Confusion Verified 06/30/18 11:27 cefepime HCl [From Maxipime] Allergy Rash/Hives Verified 06/30/18 11:27 cephalexin Allergy Rash/Hives Verified 06/30/18 11:27 ciprofloxacin Allergy Rash/Hives Verified 06/30/18 11:27 clindamycin Allergy Nausea & Verified 06/30/18 11:27 Vomiting erythromycin base Allergy Rash/Hives Verified 06/30/18 11:27 heparin Allergy Unknown Verified 06/30/18 11:27 lisinopril [From Zestril] Allergy Unknown Verified 06/30/18 11:27 lorazepam [From Ativan] Allergy Confusion Verified 06/30/18 11:27 metronidazole [From Flagyl] Allergy Nausea & Verified 06/30/18 11:27 Vomiting penicillin G Allergy Rash/Hives Verified 06/30/18 11:27 shellfish derived [Shellfish] Allergy Swelling Verified 06/30/18 11:27 Sulfa (Sulfonamide Allergy Swelling Verified 06/30/18 11:27 Antibiotics) steroids Allergy Unknown Uncoded 06/30/18 11:15 Physical Exam Vitals: Vital Signs Temp Pulse Pulse Resp BP BP Pulse Ox 07/01/18 08:00 80 07/01/18 07:00 98.5 F 80 12 98/52 96 07/01/18 01:29 98.5 F 87 16 97/53 92 L 06/30/18 22:47 90 118/66 06/30/18 19:29 98.5 F 87 16 131/70 94 L 06/30/18 15:26 85 16 129/62 98 06/30/18 11:13 98.5 F 94 18 124/72 98 Intake and Output 06/30/18 07/01/18 07/01/18 22:59 06:59 14:59 Other: # Voids 1 1 Weight 91.9 kg Results 07/01/18 07:30 07/01/18 07:30 Cardiac Enzymes 06/30/18 06/30/18 07/01/18 Range/Units 12:30 12:30 07:30 AST 39 H 31 (14-36) U/L Troponin I <0.012 (0.000-0.034) ng/mL Coagulation 06/30/18 Range/Units 12:30 PT 10.0 (9.0-12.0) sec APTT 19.9 L (22.0-30.0) sec CBC 06/30/18 07/01/18 Range/Units 12:30 07:30 WBC 4.7 4.4 (3.8-10.6) k/uL RBC 3.07 L 2.69 L (3.80-5.40) m/uL Hgb 8.5 L 7.6 L (11.4-16.0) gm/dL Hct 27.4 L 24.5 L (34.0-46.0) % Plt Count 240 199 (150-450) k/uL Comprehensive Metabolic Panel 06/30/18 07/01/18 Range/Units 12:30 07:30 Sodium 141 143 (137-145) mmol/L Potassium 4.9 4.8 (3.5-5.1) mmol/L Chloride 118 H 119 H (98-107) mmol/L Carbon Dioxide 14 L 17 L (22-30) mmol/L BUN 39 H 41 H (7-17) mg/dL Creatinine 3.26 H 3.37 H (0.52-1.04) mg/dL Glucose 87 83 (74-99) mg/dL Calcium 8.1 L 7.9 L (8.4-10.2) mg/dL AST 39 H 31 (14-36) U/L ALT 31 28 (9-52) U/L Alkaline Phosphatase 197 H 150 H (38-126) U/L Total Protein 6.1 L 5.4 L (6.3-8.2) g/dL Albumin 2.8 L 2.3 L (3.5-5.0) g/dL Current Medications Generic Name Dose Route Start Last Admin Trade Name Freq PRN Reason Stop Dose Admin Hydrocodone Bitart/Acetaminophen 1 each 06/30/18 20:44 07/01/18 05:50 [place] 10 PO 1 each Q6H PRN Administration Pain Aripiprazole 2 mg 06/30/18 21:00 06/30/18 22:50 Abilify PO 2 mg HS CHAVA Administration Aspirin 325 mg 07/01/18 17:00 Aspirin PO DAILY@1700 [facility] Cholecalciferol 2,000 unit 07/01/18 17:00 Vitamin D3 PO DAILY@1700 [facility] Escitalopram Oxalate 20 mg 07/01/18 09:00 07/01/18 08:33 Lexapro PO 20 mg DAILY [facility] Administration Furosemide 20 mg 06/30/18 21:00 07/01/18 08:33 Lasix IV 20 mg Q12HR [facility] Administration Sodium Chloride 1,000 mls @ 20 mls/hr 06/30/18 15:30 07/01/18 08:29 Saline 0.9% IV Not Given .Q24H [facility] Levothyroxine Sodium 50 mcg 07/01/18 06:00 07/01/18 05:50 Synthroid PO 50 mcg DAILY@0600 [facility] Administration Naloxone HCl 0.2 mg 06/30/18 15:30 Narcan IV Q2M PRN Opioid Reversal Ondansetron HCl 4 mg 06/30/18 17:49 07/01/18 08:34 Zofran IVP 4 mg Q6HR PRN Administration Nausea And Vomiting Intake and Output 06/30/18 07/01/18 07/01/18 22:59 06:59 14:59 Other: # Voids 1 1 Weight 91.9 kg 07/01/18 07:30 07/01/18 07:30
[2018-07-01] MEDS: SODIUM BICARBONATE TAB 650 MG TAB PO SCH ×2 (14:07→22:23)
[2018-07-01] MEDS: ASPIRIN 81 MG PO SCH (16:24)
[2018-07-01] MEDS: CHOLECALCIFEROL 1,000 UNIT TAB PO SCH (16:24)
[2018-07-01 16:47] LABS: Iron Saturation 4.13 (12.00-45.00)
--- NOTE | 2018-07-01 16:50 | P.HPIM ---
History of Present Illness H&P Date: 07/01/18 Chief Complaint: Significant edema, 40 pound weight gain This is a 67-year-old female presented to the ER as advised by PCP with significant bilateral leg edema, approximate 40 pound weight gain in 2-1/2 weeks, shortness of breath with exertion and laying flat, acute on chronic renal failure in a patient who recently had renal stents replaced 2 weeks ago. Reports had nausea vomiting and diarrhea at home, diarrhea has subsided. This morning he had nausea with dry heaving, received Zofran. Reports incontinent of urine for the last 7-8 months. Denies chest pain. Denies history of CHF. Abdominal x-ray nonspecific, renal ultrasound reporting bilateral hydronephrosis . EKG sinus rhythm. Echo pending. Creatinine 3.26 on admission up to 3.37. Hemoglobin 8.5, on admission, down to 7.6. Denies chest pain, palpitations. Complains of right-sided mid to lower quadrant abdominal pain that radiates to the back. Patient recently completed IV antibiotic therapy of Invanz for [id number] E. coli UTI, with PICC line discontinued this past Saturday. States she has been dealing with recurrent bladder infections for over 1 year. On 06/11/2018 patient was 72.4 kg, now 92.53 on admission. Afebrile, WBC 4.4.systolic blood pressures 90s to 110s. Review of Systems Review of systems: CONSTITUTIONAL: No fever, no malaise, positive fatigue. HEENT: No recent visual problems or hearing problems. Denied any sore throat. CARDIOVASCULAR: No chest pain, positive orthopnea, no palpitations, no syncope. PULMONARY: Positive shortness of breath with exertion and lying flat , no cough, no hemoptysis. GASTROINTESTINAL: recent diarrhea-subsided, positive nausea, positive vomiting, right-sided mid to lower quadrant abdominal pain. NEUROLOGICAL: No headaches, no weakness, no numbness. HEMATOLOGICAL: Denies any bleeding or petechiae. GENITOURINARY: Denies any burning micturition, frequency, or urgency. MUSCULOSKELETAL/RHEUMATOLOGICAL: Significant swelling of bilateral lower extremities ENDOCRINE: Denies any polyuria or polydipsia. PSYCHIATRIC: No anxiety, no depression The rest of the 14 point review of systems is negative Past Medical History Past Medical History: Blood Disorder, Cancer, Deep Vein Thrombosis (DVT), GI Bleed, Liver Disease, Respiratory Disorder Additional Past Medical History / Comment(s): 09-10-14 admitted to [facility] with c/o blood in urine and rectal bleeding, DX GI BLEED AND UTI. other hx: Breast Ca x2; Skin Ca squamous and melanoma; uterine ca, lung cancer LOWER LEFT LOBE 70%, c-diff- 6-5-15 snd feb 2017, on xarelto for dvt and portal vein thrombosis. 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 Wound to BACK r/t lung CA, healed 6 months ago History of Any Multi-Drug Resistant Organisms: MRSA Date of last positivie culture/infection: 09/17/17 MDRO Source:: MRSA URINE Past Surgical History: Adenoidectomy, Appendectomy, Breast Surgery, Cholecystectomy, Hysterectomy, Orthopedic Surgery, Tonsillectomy Additional Past Surgical History / Comment(s): Mastectomy bilateral; Left lower lobectomy 70%; exploratory laparotomy, LASER SX AT [facility] FOR MELANOMA- CURRENTLY HAS 100 SPOTS THAT THEY ARE WATCHING REMMOVED 4 SO FAR.lasik eye sx, past "abcess on back(ecoli) pt stated they had to open a channel,removed 2 ribs and some muscle and it was open to drain to 18 months". surgical repair to Right wrist, right femur, and right hip in 2018 Additional Past Anesthesia/Blood Transfusion Reaction / Comment(s): PAST BLOOD TRANSFUSIONS- NO COMPLICATIONS Past Psychological History: Depression Additional Psychological History / Comment(s): LOW DOSE LEXAPRO, CURRENTLY NO DEPRESSION, PT normally lives at home with her zeeshan, however currently patient resides at [facility] due to right arm and hip fractures . pt started she had just recently started working w/pt getting up w/walker and assistance and transfer w/assistance to w/c Smoking Status: Former smoker Past Alcohol Use History: None Reported Additional Past Alcohol Use History / Comment(s): STARTED SMOKING AT AGE 13, SMOKED 1 PPD SMOKED FOR 3 YEARS THEN CUT DOWN TO ONLY SMOKING WHEN OUT WITH FRIENDS.QUIT 1978. Past Drug Use History: None Reported - Past Family History Father Additional Family Medical History / Comment(s): FROM COMPLICATIONS OF SCHRAPNEL IN BODY Mother Additional Family Medical History / Comment(s): STOMACH PROBLEMS, EMPHYSEMA Medications and Allergies Home Medications Medication Instructions Recorded Confirmed Type Levothyroxine Sodium [Synthroid] 50 mcg PO DAILY@0600 07/04/17 06/30/18 History Escitalopram Oxalate [Lexapro] 20 mg PO DAILY 07/06/17 06/30/18 History Cholecalciferol [Vitamin D3] 2,000 unit PO DAILY@1700 07/22/17 06/30/18 History Aspirin EC [Ecotrin] 325 mg PO DAILY@1700 08/30/17 06/30/18 History Furosemide [Lasix] 20 mg PO DAILY@0600 08/30/17 06/30/18 History ARIPiprazole [Abilify] 2 mg PO HS 06/04/18 06/30/18 History Allergies Allergy/AdvReac Type Severity Reaction Status Date / Time VANESSA Inhibitors Allergy Unknown Verified 06/30/18 11:27 baclofen Allergy Confusion Verified 06/30/18 11:27 cefepime HCl [From Maxipime] Allergy Rash/Hives Verified 06/30/18 11:27 cephalexin Allergy Rash/Hives Verified 06/30/18 11:27 ciprofloxacin Allergy Rash/Hives Verified 06/30/18 11:27 clindamycin Allergy Nausea & Verified 06/30/18 11:27 Vomiting erythromycin base Allergy Rash/Hives Verified 06/30/18 11:27 heparin Allergy Unknown Verified 06/30/18 11:27 lisinopril [From Zestril] Allergy Unknown Verified 06/30/18 11:27 lorazepam [From Ativan] Allergy Confusion Verified 06/30/18 11:27 metronidazole [From Flagyl] Allergy Nausea & Verified 06/30/18 11:27 Vomiting penicillin G Allergy Rash/Hives Verified 06/30/18 11:27 shellfish derived [Shellfish] Allergy Swelling Verified 06/30/18 11:27 Sulfa (Sulfonamide Allergy Swelling Verified 06/30/18 11:27 Antibiotics) steroids Allergy Unknown Uncoded 06/30/18 11:15 Physical Exam Vitals: Vital Signs Temp Pulse Pulse Resp BP BP Pulse Ox 07/01/18 08:00 80 07/01/18 07:00 98.5 F 80 12 98/52 96 07/01/18 01:29 98.5 F 87 16 97/53 92 L 06/30/18 22:47 90 118/66 06/30/18 19:29 98.5 F 87 16 131/70 94 L 06/30/18 15:26 85 16 129/62 98 06/30/18 11:13 98.5 F 94 18 124/72 98 Intake and Output 06/30/18 07/01/18 07/01/18 22:59 06:59 14:59 Other: # Voids 1 1 Weight 91.9 kg PHYSICAL EXAM: VITAL SIGNS: As above GENERAL: Sitting up in bed, no acute distress HEENT: Conjunctivae normal. eyes normal. Oral mucosa moist NECK: No JVD. No thyroid enlargement. No LNs CARDIOVASCULAR: S1, S2 muffled. No murmur RESPIRATION: Breath sounds diminished in the bases. No rhonchi or crackles. No bronchial breathing. ABDOMEN: Soft, mildly distended, mild right mid- lower quadrant tenderness . No guarding. no masses palpable. Bowel sounds heard. LEGS: Positive bilateral lower extremity edema, up to groin, nonpitting non- weeping.no calf tenderness . PSYCHIATRY: Alert and oriented -3, mood and affect normal. NERVOUS SYSTEM: Cranial N 2-12 grossly normal. Diffuse weakness No focal deficits Skin: no lesions, no rash Results CBC & Chem 7: 07/01/18 07:30 07/01/18 07:30 Labs: Abnormal Lab Results - Last 24 Hours (Table) 06/30/18 06/30/18 06/30/18 Range/Units 12:30 12:30 12:30 RBC 3.07 L (3.80-5.40) m/uL Hgb 8.5 L (11.4-16.0) gm/dL Hct 27.4 L (34.0-46.0) % MCHC (31.0-37.0) g/dL RDW 16.8 H (11.5-15.5) % Lymphocytes # 0.8 L (1.0-4.8) k/uL APTT 19.9 L (22.0-30.0) sec Chloride 118 H (98-107) mmol/L Carbon Dioxide 14 L (22-30) mmol/L BUN 39 H (7-17) mg/dL Creatinine 3.26 H (0.52-1.04) mg/dL Calcium 8.1 L (8.4-10.2) mg/dL AST 39 H (14-36) U/L Alkaline Phosphatase 197 H (38-126) U/L Total Protein 6.1 L (6.3-8.2) g/dL Albumin 2.8 L (3.5-5.0) g/dL 07/01/18 07/01/18 Range/Units 07:30 07:30 RBC 2.69 L (3.80-5.40) m/uL Hgb 7.6 L (11.4-16.0) gm/dL Hct 24.5 L (34.0-46.0) % MCHC 30.9 L (31.0-37.0) g/dL RDW 16.5 H (11.5-15.5) % Lymphocytes # 0.7 L (1.0-4.8) k/uL APTT (22.0-30.0) sec Chloride 119 H (98-107) mmol/L Carbon Dioxide 17 L (22-30) mmol/L BUN 41 H (7-17) mg/dL Creatinine 3.37 H (0.52-1.04) mg/dL Calcium 7.9 L (8.4-10.2) mg/dL AST (14-36) U/L Alkaline Phosphatase 150 H (38-126) U/L Total Protein 5.4 L (6.3-8.2) g/dL Albumin 2.3 L (3.5-5.0) g/dL Thrombosis Risk Factor Assmnt - Choose All That Apply Any of the Below Risk Factors Present?: Yes Each Factor Represents 1 point: Swollen legs (current) Other Risk Factors: Yes Each Risk Factor Represents 2 Points: Age 61-74 years Each Risk Factor Represents 3 Points: History of DVT/PE Thrombosis Risk Factor Assessment Total Risk Factor Score: 6 Thrombosis Risk Factor Assessment Level: High Risk Assessment and Plan Assessment: -Fluid overload related to acute renal failure. Significant bilateral leg edema. Doubt CHF-echo pending -Acute on chronic renal failure, stage III. Acute secondary to obstructive uropathy. Chronic secondary to nephrosclerosis. Baseline 1.3 -Bilateral hydronephrosis in a patient with recent bilateral ureteral stent replacements -Anemia of chronic disease, secondary to renal failure, iron deficiency -Metabolic acidosis secondary to acute renal failure -Recurrent UTIs, recently treated for multidrug resistant E. coli UTI -History of nonalcoholic cirrhosis -Clotting disorder, not factor V -Hypertension -Depression -Melanoma, uterine cancer, Lung Ca -History of DVT Plan: Continue on current medication regime ,monitoring and symptomatic treatment. Continue diuresing with IV Lasix, diuretics increased as per nephrology. Urology consulted, further recommendations pending. Evaluated by cardiology, 2-D echo pending. Close monitoring of renal function, electrolytes, hemoglobin with repeat labs ordered for a.m. Home medication have been reviewed and resumed. Prognosis guarded. Further recommendations to follow. The impression and plan of care has been dictated as directed. : I performed a history and examination of this patient, discussed the same with the dictator. I agree with the dictator's note ,documented as a scribe. Any additional findings or plans will be noted. Time taken: 35 minutes
[2018-07-01] MEDS ORDERED: ASPIRIN 325 MG TAB PO SCH (17:00)
--- NOTE | 2018-07-01 17:06 | P.GSCN ---
History of Present Illness Consult date: 07/01/18 Reason for Consult: Renal Failure Requesting physician: Miles Collado History of present illness: The patient is a 67-year-old white female admitted for inpatient IV antibiotic treatment due to an E. coli urinary tract infection resistant to oral therapy with tetracycline several weeks ago. She has a history of chronic right hydronephrosis secondary to ureteral scarring presumably related to previous pelvic radiation therapy. She has been palliated by placement of a right ureteral stent which is changed every 6 months. She underwent bilateral ureteral stent placement on 06/11/2018. However, since that time, she has experienced lower extremity edema and is thus admitted. Review of Systems - Constitutional Denies chills, Denies fever - Cardiovascular Reports dyspnea on exertion, Reports leg edema, Denies chest pain - Gastrointestinal Reports nausea, Denies vomiting - Genitourinary Genitourinary: Denies dysuria, Denies hematuria Past Medical History Past Medical History: Blood Disorder, Cancer, Deep Vein Thrombosis (DVT), GI Bleed, Liver Disease, Respiratory Disorder Additional Past Medical History / Comment(s): 09-10-14 admitted to [facility] with c/o blood in urine and rectal bleeding, DX GI BLEED AND UTI. other hx: Breast Ca x2; Skin Ca squamous and melanoma; uterine ca, lung cancer LOWER LEFT LOBE 70%, c-diff- --15 snd feb 2017, on xarelto for dvt and portal vein thrombosis. 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 Wound to BACK r/t lung CA, healed 6 months ago History of Any Multi-Drug Resistant Organisms: MRSA Year Discovered:: 09/17/17 MDRO Source:: MRSA URINE Past Surgical History: Adenoidectomy, Appendectomy, Breast Surgery, Cholecystectomy, Hysterectomy, Orthopedic Surgery, Tonsillectomy Additional Past Surgical History / Comment(s): Mastectomy bilateral; Left lower lobectomy 70%; exploratory laparotomy, LASER SX AT [facility] FOR MELANOMA- CURRENTLY HAS 100 SPOTS THAT THEY ARE WATCHING REMMOVED 4 SO FAR.lasik eye sx, past "abcess on back(ecoli) pt stated they had to open a channel,removed 2 ribs and some muscle and it was open to drain to 18 months". surgical repair to Right wrist, right femur, and right hip in 2018 Additional Past Anesthesia/Blood Transfusion Reaction / Comm: PAST BLOOD TRANSFUSIONS- NO COMPLICATIONS Past Psychological History: Depression Additional Psychological History / Comment(s): LOW DOSE LEXAPRO, CURRENTLY NO DEPRESSION, PT normally lives at home with her zeeshan, however currently patient resides at [facility] due to right arm and hip fractures . pt started she had just recently started working w/pt getting up w/walker and assistance and transfer w/assistance to w/c Smoking Status: Former smoker Past Alcohol Use History: None Reported Additional Past Alcohol Use History / Comment(s): STARTED SMOKING AT AGE 13, SMOKED 1 PPD SMOKED FOR 3 YEARS THEN CUT DOWN TO ONLY SMOKING WHEN OUT WITH FRIENDS.QUIT 1978. Past Drug Use History: None Reported - Past Family History Father Additional Family Medical History / Comment(s): FROM COMPLICATIONS OF SCHRAPNEL IN BODY Mother Additional Family Medical History / Comment(s): STOMACH PROBLEMS, EMPHYSEMA Medications and Allergies Home Medications Medication Instructions Recorded Confirmed Type Levothyroxine Sodium [Synthroid] 50 mcg PO DAILY@0600 07/04/17 06/30/18 History Escitalopram Oxalate [Lexapro] 20 mg PO DAILY 07/06/17 06/30/18 History Cholecalciferol [Vitamin D3] 2,000 unit PO DAILY@1700 07/22/17 06/30/18 History Aspirin EC [Ecotrin] 325 mg PO DAILY@1700 08/30/17 06/30/18 History Furosemide [Lasix] 20 mg PO DAILY@0600 08/30/17 06/30/18 History ARIPiprazole [Abilify] 2 mg PO HS 06/04/18 06/30/18 History Allergies Allergy/AdvReac Type Severity Reaction Status Date / Time VANESSA Inhibitors Allergy Unknown Verified 06/30/18 11:27 baclofen Allergy Confusion Verified 06/30/18 11:27 cefepime HCl [From Maxipime] Allergy Rash/Hives Verified 06/30/18 11:27 cephalexin Allergy Rash/Hives Verified 06/30/18 11:27 ciprofloxacin Allergy Rash/Hives Verified 06/30/18 11:27 clindamycin Allergy Nausea & Verified 06/30/18 11:27 Vomiting erythromycin base Allergy Rash/Hives Verified 06/30/18 11:27 heparin Allergy Unknown Verified 06/30/18 11:27 lisinopril [From Zestril] Allergy Unknown Verified 06/30/18 11:27 lorazepam [From Ativan] Allergy Confusion Verified 06/30/18 11:27 metronidazole [From Flagyl] Allergy Nausea & Verified 06/30/18 11:27 Vomiting penicillin G Allergy Rash/Hives Verified 06/30/18 11:27 shellfish derived [Shellfish] Allergy Swelling Verified 06/30/18 11:27 Sulfa (Sulfonamide Allergy Swelling Verified 06/30/18 11:27 Antibiotics) steroids Allergy Unknown Uncoded 06/30/18 11:15 Surgical - Exam Vital Signs Temp Pulse Resp BP Pulse Ox 98.5 F 94 18 124/72 98 06/30/18 11:13 06/30/18 11:13 06/30/18 11:13 06/30/18 11:13 06/30/18 11:13 - General well developed, well nourished, no distress - Respiratory normal respiratory effort - Abdomen Soft, mildly distended, with mild right-sided tenderness. No guarding, no rebound. - Psychiatric oriented to time, oriented to person, oriented to place, speech is normal, memory intact Results - Labs 07/01/18 07:30 07/01/18 07:30 Abnormal Lab Results - Last 24 Hours (Table) 06/30/18 06/30/18 06/30/18 Range/Units 12:30 12:30 12:30 RBC 3.07 L (3.80-5.40) m/uL Hgb 8.5 L (11.4-16.0) gm/dL Hct 27.4 L (34.0-46.0) % RDW 16.8 H (11.5-15.5) % Lymphocytes # 0.8 L (1.0-4.8) k/uL APTT 19.9 L (22.0-30.0) sec Chloride 118 H (98-107) mmol/L Carbon Dioxide 14 L (22-30) mmol/L BUN 39 H (7-17) mg/dL Creatinine 3.26 H (0.52-1.04) mg/dL Calcium 8.1 L (8.4-10.2) mg/dL AST 39 H (14-36) U/L Alkaline Phosphatase 197 H (38-126) U/L Total Protein 6.1 L (6.3-8.2) g/dL Albumin 2.8 L (3.5-5.0) g/dL Diabetes panel 06/30/18 Range/Units 12:30 Sodium 141 (137-145) mmol/L Potassium 4.9 (3.5-5.1) mmol/L Chloride 118 H (98-107) mmol/L Carbon Dioxide 14 L (22-30) mmol/L BUN 39 H (7-17) mg/dL Creatinine 3.26 H (0.52-1.04) mg/dL Glucose 87 (74-99) mg/dL Calcium 8.1 L (8.4-10.2) mg/dL AST 39 H (14-36) U/L ALT 31 (9-52) U/L Alkaline Phosphatase 197 H (38-126) U/L Total Protein 6.1 L (6.3-8.2) g/dL Albumin 2.8 L (3.5-5.0) g/dL Calcium panel 06/30/18 Range/Units 12:30 Calcium 8.1 L (8.4-10.2) mg/dL Albumin 2.8 L (3.5-5.0) g/dL Pituitary panel 06/30/18 Range/Units 12:30 Sodium 141 (137-145) mmol/L Potassium 4.9 (3.5-5.1) mmol/L Chloride 118 H (98-107) mmol/L Carbon Dioxide 14 L (22-30) mmol/L BUN 39 H (7-17) mg/dL Creatinine 3.26 H (0.52-1.04) mg/dL Glucose 87 (74-99) mg/dL Calcium 8.1 L (8.4-10.2) mg/dL Adrenal panel 06/30/18 Range/Units 12:30 Sodium 141 (137-145) mmol/L Potassium 4.9 (3.5-5.1) mmol/L Chloride 118 H (98-107) mmol/L Carbon Dioxide 14 L (22-30) mmol/L BUN 39 H (7-17) mg/dL Creatinine 3.26 H (0.52-1.04) mg/dL Glucose 87 (74-99) mg/dL Calcium 8.1 L (8.4-10.2) mg/dL Total Bilirubin 0.4 (0.2-1.3) mg/dL AST 39 H (14-36) U/L ALT 31 (9-52) U/L Alkaline Phosphatase 197 H (38-126) U/L Total Protein 6.1 L (6.3-8.2) g/dL Albumin 2.8 L (3.5-5.0) g/dL - Imaging Abdominal x-ray: report reviewed, image reviewed US - kidney/bladder: report reviewed Assessment and Plan (1) Hydronephrosis Current Visit: Yes Status: Acute Code(s): N13.30 - UNSPECIFIED HYDRONEPHROSIS SNOMED Code(s): 22137418 Plan: Ultrasound shows evidence of right hydronephrosis. The right renal parenchyma is thin, and therefore that kidney likely functions poorly. A KUB x-ray shows that both ureteral stents are properly positioned. The left kidney was poorly seen on ultrasound. Although her serum creatinine level is higher than it was earlier this month, it has been this high in the past, and given the lower extremity edema is my feeling that the renal failure exacerbation is likely not obstructive in nature. We will continue to follow Mrs. Fowler with you.
[2018-07-01] MEDS: PANTOPRAZOLE 40 MG/10 ML VIAL IVP SCH (18:19)
[2018-07-01] MEDS: ARIPiprazole 2 MG TAB PO SCH (22:22)
[2018-07-01] MEDS: FUROSEMIDE 10 MG/ML 10 ML VIAL IV SCH (22:23)
--- NOTE | 2018-07-01 22:48 | P.CONS ---
History of Present Illness - Reason for Consult Consult date: 07/01/18 Anemia Requesting physician: Dorian Collado - Chief Complaint Renal Failure and SOB - History of Present Illness The patient is a 67-year-old lady, with a very complicated past oncologic history. He has had a history of multiple cancers, including bilateral breast cancer, non-small cell lung cancer, and uterine cancer. For her breast cancers , she has had mastectomies on need site, as well as adjuvant chemotherapy for each episode. Her lung cancer was also treated with surgical resection on the left, followed by adjuvant chemotherapy. Uterine cancers treated with surgery, radiation including external beam radiation and brachytherapy, as well as chemotherapy. Since then the patient has developed multiple skin melanomas, which have been treated with local excisions. She has a history of portal vein thrombosis diagnosed about 3 years ago, as well as a DVT in the right leg 7 years ago and one in the left leg 6 year ago. She was initially on Coumadin for portal vein thrombosis, but apparently had difficulty regulating her INR. She is not sure if one of her LLE DVTs actually represented a failure of Coumadin. She has been on Xarelto now for at least a year. In 08/2014, the patient had a prolonged hospitalization at [facility] for C. diff colitis. At that time, Xarelto was discontinued. Resumed on discharge. She was admitted to [facility] on 09/10/2014 with blood in the stool, as well as blood in the urine. Apparently she had been having blood in the stool off and on for about 3 months. It had become more prominent once Xarelto was resumed. 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 After discharge, she contacted her primary oncologist, , and was asked to resume Xarelto. She did complete her course of vancomycin. States that she started having small amounts of blood in her stool again. She came back to the emergency room, as she woke up on the day of admission, 09/24/2014, with a large amount of blood in her diaper. At the time she was also complaining of crampy abdominal pain as well as abdominal distention. The patient is being followed by GI, as well as infectious disease. She did have computed tomography scan of the abdomen and pelvis, as well as upper and lower endoscopies. CAT scan showed evidence of what appeared to be diffuse enteritis. On colonoscopy there was friability and submucosal hemorrhage in the distal sigmoid and rectum. 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 Appearance was not typical of C diff colitis. His stool test during her previous admission as well as during this admission have remained negative for Clostridium difficile. On the patient's labs during her previous admissions, have revealed a chronic anemia with hemoglobin usually in the 8-9 range. This has been apparent since prior to 2014. Her white blood count, has also been low mostly at level levels varying between 2.6-4.5. She was admitted to the hospital earlier this month and underwent bilateral ureteral stents exchanged. Since she was discharged she has gained over 40 pounds and has developed severe edema in both her lower extremities. Nephrology has been following and a Renal ultrasound was suggestive of bilateral hydronephrosis. She is voiding, denies hematuria. Complaints of increase SOB, Nausea without emesis. She has been afebrile. On admission hemoglobin 7.6, creatinine 3.37. She underwent complete anemia work-up in 2014, this has been repeated. Review of Systems A 14 point review of systems assessed and completed and al negative except HPI Past Medical History Past Medical History: Blood Disorder, Cancer, Deep Vein Thrombosis (DVT), GI Bleed, Liver Disease, Respiratory Disorder Additional Past Medical History / Comment(s): 09-10-14 admitted to [facility] with c/o blood in urine and rectal bleeding, DX GI BLEED AND UTI. other hx: Breast Ca x2; Skin Ca squamous and melanoma; uterine ca, lung cancer LOWER LEFT LOBE 70%, c-diff- 08-13-14 snd feb 2017, on xarelto for dvt and portal vein thrombosis. 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 Wound to BACK r/t lung CA, healed 6 months ago History of Any Multi-Drug Resistant Organisms: MRSA Year Discovered:: 09/17/17 MDRO Source:: MRSA URINE Past Surgical History: Adenoidectomy, Appendectomy, Breast Surgery, Cholecystectomy, Hysterectomy, Orthopedic Surgery, Tonsillectomy Additional Past Surgical History / Comment(s): Mastectomy bilateral; Left lower lobectomy 70%; exploratory laparotomy, LASER SX AT [facility] FOR MELANOMA- CURRENTLY HAS 100 SPOTS THAT THEY ARE WATCHING REMMOVED 4 SO FAR.lasik eye sx, past "abcess on back(ecoli) pt stated they had to open a channel,removed 2 ribs and some muscle and it was open to drain to 18 months". surgical repair to Right wrist, right femur, and right hip in 2018 Additional Past Anesthesia/Blood Transfusion Reaction / Comm: PAST BLOOD TRANSFUSIONS- NO COMPLICATIONS Past Psychological History: Depression Additional Psychological History / Comment(s): LOW DOSE LEXAPRO, CURRENTLY NO DEPRESSION, PT normally lives at home with her zeeshan, however currently patient resides at [facility] due to right arm and hip fractures . pt started she had just recently started working w/pt getting up w/walker and assistance and transfer w/assistance to w/c Smoking Status: Former smoker Past Alcohol Use History: None Reported Additional Past Alcohol Use History / Comment(s): STARTED SMOKING AT AGE 13, SMOKED 1 PPD SMOKED FOR 3 YEARS THEN CUT DOWN TO ONLY SMOKING WHEN OUT WITH FRIENDS.QUIT 1978. Past Drug Use History: None Reported - Past Family History Father Additional Family Medical History / Comment(s): FROM COMPLICATIONS OF SCHRAPNEL IN BODY Mother Additional Family Medical History / Comment(s): STOMACH PROBLEMS, EMPHYSEMA Medications and Allergies Home Medications Medication Instructions Recorded Confirmed Type Levothyroxine Sodium [Synthroid] 50 mcg PO DAILY@0600 07/04/17 06/30/18 History Escitalopram Oxalate [Lexapro] 20 mg PO DAILY 07/06/17 06/30/18 History Cholecalciferol [Vitamin D3] 2,000 unit PO DAILY@1700 07/22/17 06/30/18 History Aspirin EC [Ecotrin] 325 mg PO DAILY@1700 08/30/17 06/30/18 History Furosemide [Lasix] 20 mg PO DAILY@0600 08/30/17 06/30/18 History ARIPiprazole [Abilify] 2 mg PO HS 06/04/18 06/30/18 History Allergies Allergy/AdvReac Type Severity Reaction Status Date / Time VANESSA Inhibitors Allergy Unknown Verified 06/30/18 11:27 baclofen Allergy Confusion Verified 06/30/18 11:27 cefepime HCl [From Maxipime] Allergy Rash/Hives Verified 06/30/18 11:27 cephalexin Allergy Rash/Hives Verified 06/30/18 11:27 ciprofloxacin Allergy Rash/Hives Verified 06/30/18 11:27 clindamycin Allergy Nausea & Verified 06/30/18 11:27 Vomiting erythromycin base Allergy Rash/Hives Verified 06/30/18 11:27 heparin Allergy Unknown Verified 06/30/18 11:27 lisinopril [From Zestril] Allergy Unknown Verified 06/30/18 11:27 lorazepam [From Ativan] Allergy Confusion Verified 06/30/18 11:27 metronidazole [From Flagyl] Allergy Nausea & Verified 06/30/18 11:27 Vomiting penicillin G Allergy Rash/Hives Verified 06/30/18 11:27 shellfish derived [Shellfish] Allergy Swelling Verified 06/30/18 11:27 Sulfa (Sulfonamide Allergy Swelling Verified 06/30/18 11:27 Antibiotics) steroids Allergy Unknown Uncoded 06/30/18 11:15 Physical Exam Vitals: Vital Signs Temp Pulse Resp BP Pulse Ox 07/01/18 19:42 98.4 F 90 17 104/58 92 L 07/01/18 15:24 80 07/01/18 15:00 98 F 89 12 92/50 91 L 07/01/18 08:00 80 07/01/18 07:00 98.5 F 80 12 98/52 96 07/01/18 01:29 98.5 F 87 16 97/53 92 L 06/30/18 22:47 90 118/66 Intake and Output 07/01/18 07/01/18 07/01/18 06:59 14:59 22:59 Other: # Voids 1 2 Weight 91.9 kg Gen: Alert and Oriented, NAD Head: NCNT Neck: Supple, No adenopathy Lungs: Diminished bases, no increased effort Heart: Tachy, Reg Abdomen: NT, Obese Extremities: BLE Edema Neuro: No sensory or motor deficits Results CBC & Chem 7: 07/01/18 07:30 07/01/18 07:30 Labs: Abnormal Lab Results - Last 24 Hours (Table) 07/01/18 07/01/18 07/01/18 Range/Units 07:30 07:30 07:30 RBC 2.69 L (3.80-5.40) m/uL Hgb 7.6 L (11.4-16.0) gm/dL Hct 24.5 L (34.0-46.0) % MCHC 30.9 L (31.0-37.0) g/dL RDW 16.5 H (11.5-15.5) % Lymphocytes # 0.7 L (1.0-4.8) k/uL Chloride 119 H (98-107) mmol/L Carbon Dioxide 17 L (22-30) mmol/L BUN 41 H (7-17) mg/dL Creatinine 3.37 H (0.52-1.04) mg/dL Calcium 7.9 L (8.4-10.2) mg/dL Iron 10 L (50-170) ug/dL Iron Saturation 4.13 L (12.00-45.00) Alkaline Phosphatase 150 H (38-126) U/L Total Protein 5.4 L (6.3-8.2) g/dL Albumin 2.3 L (3.5-5.0) g/dL Chest x-ray: report reviewed Assessment and Plan (1) Hydronephrosis Current Visit: Yes Status: Acute Code(s): N13.30 - UNSPECIFIED HYDRONEPHROSI S SNOMED Code(s): 36931031 (2) Leg edema Current Visit: Yes Status: Acute Code(s): R60.0 - LOCALIZED EDEMA SNOMED Code(s): 756449882 (3) REBECCA (acute kidney injury) Current Visit: No Status: Acute Code(s): N17.9 - ACUTE KIDNEY FAILURE, UNSPECIFIED SNOMED Code(s): 15683138 (4) Anemia Current Visit: No Status: Acute Priority: High Code(s): D64.9 - ANEMIA, UNSPECIFIED SNOMED Code(s): 647330358 Plan: Assessment and Recs: Normocytic Anemia: - Likely Multifactorial as this is chronic with baseline between 8-9 since before 2014 - COmponent of Kidney Disease (stage unknown, nephrology is following) - Full work-up re-evaluated today for erythropoetin and nutritional deficits Renal Insufficiency: Nephrology COmplex and Multiple co-morbidies as per HPI Other Medical acute issues per Primary team and Nephrology Physcian Attest: I ahve completed the full history and physcial of this patient and devloped the complete impression and plan, agree with above dictated as a scribe.
[2018-07-02] MEDS: HYDROcodone/APAP 10-325MG 1 EACH TAB PO PRN ×3 (00:35→22:49)
[2018-07-02] MEDS: LEVOTHYROXINE 50 MCG TAB PO SCH (06:24)
--- NOTE | 2018-07-02 07:04 | ECHOF ---
Referral Reason:fluid overload MEASUREMENTS -------- HEIGHT: 175.3 cm WEIGHT: 91.6 kg BP: RVIDd: 3.3 cm (< 3.3) IVSd: 1.0 cm (0.6 - 1.1) LVIDd: 4.3 cm (3.9 - 5.3) LVPWd: 1.1 cm (0.6 - 1.1) IVSs: 1.6 cm LVIDs: 2.7 cm LVPWs: 1.8 cm LAESV Index (A-L): 36.52 ml/m Ao Diam: 3.2 cm (2.0 - 3.7) AV Cusp: 1.4 cm (1.5 - 2.6) LA Diam: 4.1 cm (2.7 - 3.8) MV EXCURSION: 18.742 mm (> 18.000) MV EF SLOPE: 94 mm/s (70 - 150) EPSS: 0.5 cm MV E Hugh: 0.96 m/s MV DecT: 211 ms MV A Hugh: 0.86 m/s MV E/A Ratio: 1.11 RAP: 5.00 mmHg RVSP: 35.04 mmHg FINDINGS -------- Sinus rhythm. This was a technically good study. The left ventricular size is normal. Left ventricular wall thickness is normal. Overall left vent ricular systolic function is normal with, an EF between 55 - 60 %. The right ventricle is normal in size. LA is moderately dilated 34-39 ml/m2 The right atrial size is normal. Aortic valve is trileaflet and is mildly thickened. The mitral valve leaflets are mildly thickened. Mild mitral annular calcification present. Mild m itral regurgitation is present. Mild tricuspid regurgitation present. The right ventricular systolic pressure, as measured by Doppl er, is 35.04mmHg. There is no pulmonic regurgitation present. The aortic root size is normal. IVC Not well visulized. There is a trivial pericardial effusion present. CONCLUSIONS -------- 1. Sinus rhythm. 2. This was a technically good study. 3. The left ventricular size is normal. 4. Left ventricular wall thickness is normal. 5. Overall left ventricular systolic function is normal with, an EF between 55 - 60 %. 6. The right ventricle is normal in size. 7. LA is moderately dilated 34-39 ml/m2 8. The right atrial size is normal. 9. Aortic valve is trileaflet and is mildly thickened. 10. The mitral valve leaflets are mildly thickened. 11. Mild mitral annular calcification present. 12. Mild mitral regurgitation is present. 13. Mild tricuspid regurgitation present. 14. The right ventricular systolic pressure, as measured by Doppler, is 35.04mmHg. 15. There is no pulmonic regurgitation present. 16. The aortic root size is normal. 17. IVC Not well visulized. 18. There is a trivial pericardial effusion present. DONOR PROCESSOR: Renetta Wadsworth RDCS
[2018-07-02 07:29] LABS: Anisocytosis Slight; Basophils % (A) 0 %; Eosinophils # (A) 0.2 k/uL (0-0.7); Eosinophils % (A) 5 %; HCT 24.7 % (34.0-46.0); HGB 7.6 gm/dL (11.4-16.0); Hypochromasia Marked; Lymphocytes # (A) 0.8 k/uL (1.0-4.8); Lymphocytes % (A) 17 %; MCHC 30.9 g/dL (31.0-37.0); MCV 90.4 fL (80.0-100.0); Monocytes # (A) 0.4 k/uL (0-1.0); Monocytes % (A) 7 %; Neutrophils # (A) 3.3 k/uL (1.3-7.7); Neutrophils % (A) 68 %; Platelet Count 213 k/uL (150-450); RBC 2.73 m/uL (3.80-5.40); RDW 16.6 % (11.5-15.5); Reticulocyte % 1.4 % (0.5-2.0); WBC 4.9 k/uL (3.8-10.6)
[2018-07-02 08:07] LABS: Albumin 2.4 g/dL (3.5-5.0); Magnesium 1.1 mg/dL (1.6-2.3); Potassium 4.8 mmol/L (3.5-5.1); Total Bilirubin 0.2 mg/dL (0.2-1.3); Total Protein 5.5 g/dL (6.3-8.2)
[2018-07-02] MEDS ORDERED: Magnesium Replacement Protocol 1 EACH MISC MISCELLANE PRN (08:23)
[2018-07-02] MEDS ORDERED: MAGNESIUM SULFATE-D5W PMX 1 GM in DEXTROSE/WATER 1 100ML.BAG IVPB ONE ×2 (10:00→18:04)
--- NOTE | 2018-07-02 10:15 | P.PN ---
Subjective Patient is seen in follow-up for acute kidney injury on chronic kidney disease. Patient has chronic kidney disease stage III with baseline creatinine near 1.3 secondary to nephrosclerosis. Renal function is worsening with creatinine up to 3.73 today. Patient presented with edema and over 40 pound weight gain over the last 2 weeks. She is currently maintained on Lasix 80 mg IV twice daily. She's wearing briefs so accurate urine output is not documented. Still quite edematous. Hydronephrosis noted on ultrasound. She has bilateral ureteral stents that were exchanged earlier this month. Denies chest pain. Oral intake is fair. Vital signs are stable. General: The patient appeared well nourished and normally developed. HEENT: Head exam is unremarkable. Neck is without jugular venous distension. LUNGS: Breath sounds decreased. HEART: Rate and Rhythm are regular. First and second heart sounds normal. No murmurs, rubs or gallops. ABDOMEN: Abdominal exam reveals normal bowel sounds. Non-tender and non- distended. No evidence of peritonitis. EXTREMITITES: 2+edema. Objective - Vital Signs Vital signs: Vital Signs Temp 98.9 F 07/02/18 07:00 Pulse 93 07/02/18 07:00 Resp 16 07/02/18 07:00 BP 106/54 07/02/18 07:00 Pulse Ox 90 L 07/02/18 07:00 Intake & Output 07/01/18 07/02/18 07/02/18 18:59 06:59 18:59 Intake Total 236 Balance 236 Intake: Oral 236 Other: # Voids 2 1 - Labs CBC & Chem 7: 07/02/18 07:10 07/02/18 07:10 Labs: Abnormal Lab Results - Last 24 Hours (Table) 07/01/18 07/02/18 07/02/18 Range/Units 07:30 07:10 07:10 RBC 2.73 L (3.80-5.40) m/uL Hgb 7.6 L (11.4-16.0) gm/dL Hct 24.7 L (34.0-46.0) % MCHC 30.9 L (31.0-37.0) g/dL RDW 16.6 H (11.5-15.5) % Lymphocytes # 0.8 L (1.0-4.8) k/uL Chloride 118 H (98-107) mmol/L Carbon Dioxide 20 L (22-30) mmol/L BUN 42 H (7-17) mg/dL Creatinine 3.73 H (0.52-1.04) mg/dL Calcium 8.0 L (8.4-10.2) mg/dL Magnesium 1.1 L (1.6-2.3) mg/dL Iron 10 L (50-170) ug/dL Iron Saturation 4.13 L (12.00-45.00) AST 37 H (14-36) U/L Alkaline Phosphatase 165 H (38-126) U/L Total Protein 5.5 L (6.3-8.2) g/dL Albumin 2.4 L (3.5-5.0) g/dL Assessment and Plan Plan: Assessment: 1. Acute kidney injury secondary to obstructive uropathy. Creatinine 3.73 today. Rule out nephrotic syndrome. Last month's UA revealed no evidence of proteinuria. 2. Bilateral hydronephrosis. Patient had bilateral ureteral stents exchanged earlier this month. CAT scan of the abdomen and pelvis is pending. Urology following. 3. Metabolic acidosis secondary to acute kidney injury. Better. Maintained on oral sodium bicarbonate. 4. Volume overload. Again this is likely from underlying obstructive etiology. Echocardiogram revealed preserved ejection fraction. I will rule out nephrotic syndrome. 5. Anemia of chronic kidney disease. Severe iron deficiency noted. 6. Hypomagnesemia secondary to diuresis. Plan: Maintain Lasix 80 mg IV twice daily. Replace magnesium. 4 g IV today. IV iron 3 doses. First dose today. Follow-up CAT scan results. Check urinalysis and quantify proteinuria. Follow-up electrophoresis studies.
[2018-07-02 12:07] LABS: Protein, Total 5.2 g/dL (6.2-8.2); Rheumatoid Factor 41 IU/mL (0-15)
[2018-07-02 13:05] LABS: Erythrocyte Sedimentation Rate 47 mm/hr (0-20)
[2018-07-02 13:26] LABS: Immunoglobulin M 83.9 mg/dL (40.0-280.0)
[2018-07-02] MEDS: ONDANSETRON 4 MG/2 ML VIAL IVP PRN ×2 (13:31→22:23)
[2018-07-02] MEDS: IOPAMIDOL-300 CONTRAST 30 ML VIAL (ORAL USE) PO PRN ×2 (13:36→14:45)
[2018-07-02] MEDS: SODIUM BICARBONATE TAB 650 MG TAB PO SCH ×2 (13:38→22:01)
[2018-07-02] MEDS: ESCITALOPRAM 20 MG TAB PO SCH (13:38)
[2018-07-02] MEDS: PANTOPRAZOLE 40 MG/10 ML VIAL IVP SCH (13:38)
[2018-07-02] MEDS: FUROSEMIDE 10 MG/ML 10 ML VIAL IV SCH ×2 (13:39→22:04)
[2018-07-02] MEDS: MAGNESIUM SULFATE-D5W PMX 1 GM in DEXTROSE/WATER 1 100ML.BAG IVPB SCH ×3 (13:40→17:11)
--- NOTE | 2018-07-02 13:46 | P.PN ---
Subjective This is a pleasant 67-year-old female past medical history significant for frequent urinary tract infections with hydronephrosis s/p ureteral stent placement, atrophic left kidney, Double J-catheter exchange in place, breast cancer, skin cancer, uterine cancer, lung cancer and DVT in the past. She denies history of coronary artery disease, hypertension, dyslipidemia or diabetes mellitus. She does not follow with a legal department manager for any reason. Patient was seen and examined resting comfortably sitting up in bed. She denies symptoms of chest discomfort, shortness of breath, dizziness or palpitations. She states she has not really gotten up out of bed much since yesterday. She is currently maintained on Lasix 80 mg twice a day. Laboratory data reviewed, WBC 4.9, hemoglobin 7.6, platelets 213, sodium 143, potassium 4.8, creatinine 3.73. Blood pressure 106/54 heart rate 93 afebrile maintaining oxygen saturation. An accurate documentation of intake and output secondary to urinary incontinence. GENERAL: This is a 67-year-old female in no apparent distress at the time of my examination. HEENT: Head is atraumatic, normocephalic. Pupils are equal, round. Sclerae anicteric. Conjunctivae are clear. Mucous membranes of the mouth are moist. Neck is supple. There is no jugular venous distention. No carotid bruit is heard. LUNGS: Clear to auscultation no wheezes, rales or rhonchi. No chest wall tenderness is noted on palpation or with deep breathing. HEART: Regular rate and rhythm without murmurs, rubs or gallops. S1 and S2 heard. EXTREMITIES: Significant bilateral lower extremity edema, non-pitting, that goes all the way up her legs to mid-thigh, slightly improved from yesterday. No calf tenderness noted. ASSESSMENT Acute on chronic renal failure Fluid overload related to acute renal failure Normocytic normochromic anemia Hypomagnesemia PLAN Continue with aggressive diuresis per nephrology. We will follow as needed, please call for further questions or concerns. Nurse Practitioner note has been reviewed, I agree with a documented findings and plan of care. Patient was seen and examined. Objective - Vital Signs Vital signs: Vital Signs Temp 98.9 F 07/02/18 07:00 Pulse 93 07/02/18 07:00 Resp 16 07/02/18 07:00 BP 106/54 07/02/18 07:00 Pulse Ox 90 L 07/02/18 07:00 Intake & Output 07/01/18 07/02/18 07/02/18 18:59 06:59 18:59 Intake Total 236 Balance 236 Intake: Oral 236 Other: # Voids 2 1 - Labs CBC & Chem 7: 07/02/18 07:10 07/02/18 07:10 Labs: Abnormal Lab Results - Last 24 Hours (Table) 07/01/18 07/02/18 07/02/18 Range/Units 07:30 07:10 07:10 RBC 2.73 L (3.80-5.40) m/uL Hgb 7.6 L (11.4-16.0) gm/dL Hct 24.7 L (34.0-46.0) % MCHC 30.9 L (31.0-37.0) g/dL RDW 16.6 H (11.5-15.5) % Lymphocytes # 0.8 L (1.0-4.8) k/uL Chloride 118 H (98-107) mmol/L Carbon Dioxide 20 L (22-30) mmol/L BUN 42 H (7-17) mg/dL Creatinine 3.73 H (0.52-1.04) mg/dL Calcium 8.0 L (8.4-10.2) mg/dL Magnesium 1.1 L (1.6-2.3) mg/dL Iron 10 L (50-170) ug/dL Iron Saturation 4.13 L (12.00-45.00) AST 37 H (14-36) U/L Alkaline Phosphatase 165 H (38-126) U/L Total Protein 5.5 L (6.3-8.2) g/dL Albumin 2.4 L (3.5-5.0) g/dL
[2018-07-02 15:07] LABS: Appearance,Urine Turbid (Clear); Bacteria,Urine Rare /hpf; Bilirubin,Urine Negative (Negative); Blood,Urine Moderate (Negative); Color,Urine Light Yellow; Glucose,Urine (UA) Negative (Negative); Ketones,Urine Negative (Negative); Leukocyte Esterase,Urine Large (Negative); Nitrite,Urine Negative (Negative); PH, Urine 5.5 (5.0-8.0); Protein,Urine 1+ (Negative); RBC,Urine 90 /hpf (0-5); Specific Gravity,Urine 1.019 (1.001-1.035); Squamous Epithelial Cell,Urine 8 /hpf (0-4); Urobilinogen,Urine <2.0 mg/dL (<2.0); WBC,Urine >182 /hpf (0-5)
--- NOTE | 2018-07-02 15:25 | P.PN ---
Subjective Progress Note Date: 07/02/18 This is a 67-year-old female presented to the ER as advised by PCP with significant bilateral leg edema, approximate 40 pound weight gain in 2-1/2 weeks, shortness of breath with exertion and laying flat, acute on chronic renal failure in a patient who recently had renal stents replaced 2 weeks ago. Repo rts had nausea vomiting and diarrhea at home, diarrhea has subsided. This morning he had nausea with dry heaving, received Zofran. Reports incontinent of urine for the last 7-8 months. Denies chest pain. Denies history of CHF. Abdominal x-ray nonspecific, renal ultrasound reporting bilateral hy dronephrosis. EKG sinus rhythm. Echo pending. Creatinine 3.26 on admission up to 3.37. Hemoglobin 8.5, on admission, down to 7.6. Denies chest pain, palpitations. Complains of right-sided mid to lower quadrant abdominal pain that radiates to the back. Patient recently completed IV antibiotic therapy of Invanz for [id number] E. coli UTI, with PICC line discontinued this past Saturday. States she has been dealing with recurrent bladder infections for over 1 year. On 06/11/2018 patient was 72.4 kg, now 92.53 on admission. Afebrile, WBC 4.4.systolic blood pressures 90s to 110s. 07/02/2018 Maintained on IV push Lasix, I&O inaccurate secondary to incontinence. Reweighed this afternoon on standing scale, 92.2 kg, 92.5 kg on admission. Echo reporting normal LV function, 55-60%. Magnesium 1.1, receiving supplements. CT of abdomen ordered by urology, pending. Creatinine worsening, 3.73. Significant bilateral lower extremity edema persists, mildly improved. Denies chest pain, palpitations or increased shortness of breath. Objective - Vital Signs Vital signs: Vital Signs Temp 97.5 F L 07/02/18 14:51 Pulse 93 07/02/18 07:00 Resp 18 07/02/18 14:51 BP 144/76 07/02/18 14:51 Pulse Ox 94 L 07/02/18 14:51 Intake & Output 07/01/18 07/02/18 07/02/18 18:59 06:59 18:59 Intake Total 236 Balance 236 Weight 92.2 kg Intake: Oral 236 Other: # Voids 2 1 - Exam PHYSICAL EXAM: VITAL SIGNS: As above GENERAL: Sitting up in bed, no acute distress HEENT: Conjunctivae normal. eyes normal. Oral mucosa moist NECK: No JVD. No thyroid enlargement. No LNs CARDIOVASCULAR: S1, S2 muffled. No murmur RESPIRATION: Breath sounds diminished in the bases. No rhonchi or crackles. No bronchial breathing. ABDOMEN: Soft, mildly distended, mild right mid- lower quadrant tenderness . No guarding. no masses palpable. Bowel sounds heard. LEGS: Mildly improved, softer ,Positive bilateral lower extremity edema, up to groin, nonpitting non-weeping.no calf tenderness . PSYCHIATRY: Alert and oriented -3, mood and affect normal. NERVOUS SYSTEM: Cranial N 2-12 grossly normal. Diffuse weakness No focal deficits Skin: no lesions, no rash - Labs CBC & Chem 7: 07/02/18 07:10 07/02/18 07:10 Labs: Abnormal Lab Results - Last 24 Hours (Table) 07/01/18 07/02/18 07/02/18 Range/Units 07:30 07:10 07:10 RBC 2.73 L (3.80-5.40) m/uL Hgb 7.6 L (11.4-16.0) gm/dL Hct 24.7 L (34.0-46.0) % MCHC 30.9 L (31.0-37.0) g/dL RDW 16.6 H (11.5-15.5) % Lymphocytes # 0.8 L (1.0-4.8) k/uL ESR 47 H (0-20) mm/hr Chloride 118 H (98-107) mmol/L Carbon Dioxide 20 L (22-30) mmol/L BUN 42 H (7-17) mg/dL Creatinine 3.73 H (0.52-1.04) mg/dL Calcium 8.0 L (8.4-10.2) mg/dL Magnesium 1.1 L (1.6-2.3) mg/dL Iron 10 L (50-170) ug/dL Iron Saturation 4.13 L (12.00-45.00) AST 37 H (14-36) U/L Alkaline Phosphatase 165 H (38-126) U/L Total Protein 5.5 L (6.3-8.2) g/dL Total Protein (PEP) (6.2-8.2) g/dL Albumin 2.4 L (3.5-5.0) g/dL Urine Appearance (Clear) Urine Protein (Negative) Urine Blood (Negative) Ur Leukocyte Esterase (Negative) Urine RBC (0-5) /hpf Urine WBC (0-5) /hpf Urine WBC Clumps (None) /hpf Ur Squamous Epith Cells (0-4) /hpf Urine Bacteria (None) /hpf IgA (60.0-350.0) mg/dL Rheumatoid Factor (0-15) IU/mL Free [place] LC, Quant (0.33-1.94) mg/dL Free Lambda LC, Quant (0.57-2.63) mg/dL 07/02/18 07/02/18 07/02/18 Range/Units 07:10 07:10 14:15 RBC (3.80-5.40) m/uL Hgb (11.4-16.0) gm/dL Hct (34.0-46.0) % MCHC (31.0-37.0) g/dL RDW (11.5-15.5) % Lymphocytes # (1.0-4.8) k/uL ESR (0-20) mm/hr Chloride (98-107) mmol/L Carbon Dioxide (22-30) mmol/L BUN (7-17) mg/dL Creatinine (0.52-1.04) mg/dL Calcium (8.4-10.2) mg/dL Magnesium (1.6-2.3) mg/dL Iron 9 L (50-170) ug/dL Iron Saturation (12.00-45.00) AST (14-36) U/L Alkaline Phosphatase (38-126) U/L Total Protein (6.3-8.2) g/dL Total Protein (PEP) 5.2 L (6.2-8.2) g/dL Albumin (3.5-5.0) g/dL Urine Appearance Turbid H (Clear) Urine Protein 1+ H (Negative) Urine Blood Moderate H (Negative) Ur Leukocyte Esterase Large H (Negative) Urine RBC 90 H (0-5) /hpf Urine WBC >182 H (0-5) /hpf Urine WBC Clumps Many H (None) /hpf Ur Squamous Epith Cells 8 H (0-4) /hpf Urine Bacteria Rare H (None) /hpf IgA 359.0 H (60.0-350.0) mg/dL Rheumatoid Factor 41 H (0-15) IU/mL Free [place] LC, Quant 20.80 H (0.33-1.94) mg/dL Free Lambda LC, Quant 8.87 H (0.57-2.63) mg/dL Assessment and Plan Assessment: -Fluid overload related to acute renal failure. Significant bilateral leg edema. Doubt CHF-echo pending -Acute on chronic renal failure, stage III. Acute secondary to obstructive uropathy. Chronic secondary to nephrosclerosis. Baseline 1.3 -Bilateral hydronephrosis in a patient with recent bilateral ureteral stent replacements -Anemia of chronic disease, secondary to renal failure, iron deficiency -Metabolic acidosis secondary to acute renal failure -Recurrent UTIs, recently treated for multidrug resistant E. coli UTI -History of nonalcoholic cirrhosis -Clotting disorder, not factor V -Hypertension -Depression -Melanoma, uterine cancer, Lung Ca, breast cancer -History of DVT -Hypomagnesemia Plan: Continue on current medication regime ,monitoring and symptomatic treatment. Magnesium supplements .iron ordered .Diuretics increased per nephrology. Daily weights . Abdomen CT pending. UA pending.Close monitoring of renal function, electrolytes, hemoglobin with repeat labs ordered for a.m. Prognosis guarded given multiple complex medical issues. The impression and plan of care has been dictated as directed. : I performed a history and examination of this patient, discussed the same with the dictator. I agree with the dictator's note ,documented as a scribe. Any ad ditional findings or plans will be noted. Time taken: 35 minutes
[2018-07-02] MEDS: SODIUM CHLORIDE 0.9% 1,000 ML IV SCH (15:41)
--- NOTE | 2018-07-02 15:51 | CT ---
EXAMINATION TYPE: CT abdomen pelvis wo con DATE OF EXAM: 07/02/2018 COMPARISON: 08/31/2019 1T 18 INDICATION: Pelvic mass and lower extremity edema DLP: 794.6 mGycm, Automated exposure control for dose reduction was used. CONTRAST: 0 mL of Isovue 300. Study performed with Oral Contrast TECHNIQUE: Axial images were obtained from above the diaphragm to the pubic rami in the axial plane a t 5 mm thick sections. Reconstructed images are reviewed on the computer in the coronal plane. FINDINGS: Limited CT sections are obtained the lung bases. There is a small right pleural effusion. Some strea k atelectasis appears to be at the right base extending to the right infrahilar region. Small amount of left pleural effusion is present. Infrahilar consolidation is present on the right.. Right breast prosthesis is evident. CT ABDOMEN: Moderate fatty infiltration is within the small liver. Spleen has mild diminished density. Ascites is present throughout the abdomen. Pancreas appears normal. Gallbladder surgically absent. Adrenal glan ds are normal. Kidneys: No masses are evident. There is marked right hydronephrosis. Moderate left hydronephrosis is present. Bilateral ureteral stents are present extending to the urinary bladder. No cysts are presen t. Aorta: Vascular calcification is within the aorta. Inferior vena cava: Normal. CT PELVIS: Loops of bowel within the abdomen and pelvis are normal. There are loops of bowel which are incom pletely distended or lack oral contrast limiting their evaluation. Oral contrast extends through the ascending transverse, and descending colon. Small amount of contrast within the sigmoid colon. Appendix: Not identified. No suspicious tubular structures are evident. Urinary bladder: Discrete abnormality is not identified. There is some decompression causing limitati on on the evaluation. Additionally, the adjacent ascites makes visualization difficult. Genitourinary structures: Uterus and ovaries are not identified. Osseous structures: No suspicious lytic or sclerotic lesions. There is a right hip pin present. Degen erative changes are at sacroiliac joints. Some facet degenerative changes in the lower lumbar spine. IMPRESSIONS: 1. Small right and minimal left pleural effusion. 2. Moderately prominent ascites, increased from prior. 3. Marked right hydronephrosis. Moderate left hydronephrosis present. Ureteral stents are present papito aterally.
--- NOTE | 2018-07-02 17:43 | P.PN ---
Subjective Progress Note Date: 07/02/18 Principal diagnosis: Anemia, iron deficiency and chronic kidney disease Patient seen in follow-up today, she denies any bleeding, moderate fatigue when active, mild shortness of breath on exertion, some generalized weakness, nothing progressive at this time. She does feel better today than on admission. Objective - Vital Signs Vital signs: Vital Signs Temp 97.5 F L 07/02/18 14:51 Pulse 93 07/02/18 07:00 Resp 18 07/02/18 15:54 BP 144/76 07/02/18 14:51 Pulse Ox 94 L 07/02/18 14:51 Intake & Output 07/01/18 07/02/18 07/02/18 18:59 06:59 18:59 Intake Total 236 Balance 236 Weight 92.2 kg Intake: Oral 236 Other: # Voids 2 1 - Constitutional General appearance: Present: cooperative, no acute distress, thin - EENT Eyes: Present: anicteric sclerae, EOMI ENT: Present: hearing grossly normal - Respiratory Respiratory: bilateral: CTA - Cardiovascular Heart sounds: normal: S1, S2 Abnormal Heart Sounds: Absent: systolic murmur, diastolic murmur, rub, S3 Gallop, S4 Gallop, click, other - Peripheral edema leg Peripheral Edema: bilateral: Trace - Gastrointestinal General gastrointestinal: Present: distended, normal bowel sounds, soft. Abse nt: absent bowel sounds, decreased bowel sounds, hepatomegaly, hyperactive bowel sounds, organomegaly, rigid, scaphoid, splenomegaly, tenderness, umbilical hernia, ventral hernia - Integumentary Integumentary: Present: pale - Neurologic Neurologic: Present: CNII-XII intact - Musculoskeletal Musculoskeletal: Present: generalized weakness, strength equal bilaterally - Psychiatric Psychiatric: Present: A&O x's 3, appropriate affect, intact judgment & insight - Labs CBC & Chem 7: 07/02/18 07:10 07/02/18 07:10 Labs: Abnormal Lab Results - Last 24 Hours (Table) 07/02/18 07/02/18 07/02/18 Range/Units 07:10 07:10 07:10 RBC 2.73 L (3.80-5.40) m/uL Hgb 7.6 L (11.4-16.0) gm/dL Hct 24.7 L (34.0-46.0) % MCHC 30.9 L (31.0-37.0) g/dL RDW 16.6 H (11.5-15.5) % Lymphocytes # 0.8 L (1.0-4.8) k/uL ESR 47 H (0-20) mm/hr Chloride 118 H (98-107) mmol/L Carbon Dioxide 20 L (22-30) mmol/L BUN 42 H (7-17) mg/dL Creatinine 3.73 H (0.52-1.04) mg/dL Calcium 8.0 L (8.4-10.2) mg/dL Magnesium 1.1 L (1.6-2.3) mg/dL Iron 9 L (50-170) ug/dL AST 37 H (14-36) U/L Alkaline Phosphatase 165 H (38-126) U/L Total Protein 5.5 L (6.3-8.2) g/dL Total Protein (PEP) 5.2 L (6.2-8.2) g/dL Albumin 2.4 L (3.5-5.0) g/dL Urine Appearance (Clear) Urine Protein (Negative) Urine Blood (Negative) Ur Leukocyte Esterase (Negative) Urine RBC (0-5) /hpf Urine WBC (0-5) /hpf Urine WBC Clumps (None) /hpf Ur Squamous Epith Cells (0-4) /hpf Urine Bacteria (None) /hpf U Random Total Protein (<12) mg/dL IgA (60.0-350.0) mg/dL Rheumatoid Factor 41 H (0-15) IU/mL Free [place] LC, Quant 20.80 H (0.33-1.94) mg/dL Free Lambda LC, Quant 8.87 H (0.57-2.63) mg/dL 07/02/18 07/02/18 07/02/18 Range/Units 07:10 14:15 14:15 RBC (3.80-5.40) m/uL Hgb (11.4-16.0) gm/dL Hct (34.0-46.0) % MCHC (31.0-37.0) g/dL RDW (11.5-15.5) % Lymphocytes # (1.0-4.8) k/uL ESR (0-20) mm/hr Chloride (98-107) mmol/L Carbon Dioxide (22-30) mmol/L BUN (7-17) mg/dL Creatinine (0.52-1.04) mg/dL Calcium (8.4-10.2) mg/dL Magnesium (1.6-2.3) mg/dL Iron (50-170) ug/dL AST (14-36) U/L Alkaline Phosphatase (38-126) U/L Total Protein (6.3-8.2) g/dL Total Protein (PEP) (6.2-8.2) g/dL Albumin (3.5-5.0) g/dL Urine Appearance Turbid H (Clear) Urine Protein 1+ H (Negative) Urine Blood Moderate H (Negative) Ur Leukocyte Esterase Large H (Negative) Urine RBC 90 H (0-5) /hpf Urine WBC >182 H (0-5) /hpf Urine WBC Clumps Many H (None) /hpf Ur Squamous Epith Cells 8 H (0-4) /hpf Urine Bacteria Rare H (None) /hpf U Random Total Protein 47 H (<12) mg/dL IgA 359.0 H (60.0-350.0) mg/dL Rheumatoid Factor (0-15) IU/mL Free [place] LC, Quant (0.33-1.94) mg/dL Free Lambda LC, Quant (0.57-2.63) mg/dL Assessment and Plan (1) Iron deficiency anemia Current Visit: Yes Status: Chronic Priority: Medium Code(s): D50.9 - IRON DEFICIENCY ANEMIA, UNSPECIFIED SNOMED Code(s): 71120325 (2) Anemia in chronic kidney disease Current Visit: Yes Status: Chronic Priority: Medium Code(s): N18.9 - CHR ONIC KIDNEY DISEASE, UNSPECIFIED; D63.1 - ANEMIA IN CHRONIC KIDNEY DISEASE SNOMED Code(s): 611327702 Plan: Workup shows iron deficiency. Patient is having a CT of the abdomen and pelvis today. Will hold off giving parenteral iron supplementation until after imaging is complete. Plan for iron supplementation parenterally. Patient was having difficulty tolerating by mouth supplementation, nausea. F/U in 2-3 weeks. CBC daily while inpatient. Patient has been seen by Nephrology, await their opinion regarding degree of kidney disease and whether erythropoietin supplementation is appropriate. Because of iron deficiency gastroenterology workup is recommended. Patient has seen Dr. Colby in the past. She last had a colonoscopy in 2014, she does not remember if she's had an EGD. Would recommend follow-up in the outpatient [facility] to reestablish with Dr. Colby to see if and when endoscopies are most appropriate in her situation.
[2018-07-02] MEDS: ASPIRIN 81 MG PO SCH (18:16)
[2018-07-02] MEDS: CHOLECALCIFEROL 1,000 UNIT TAB PO SCH (18:16)
[2018-07-02] MEDS: SODIUM FERRIC GLUCONAT-SUCROSE 125 MG in SODIUM CHLORIDE 0.9% 100 ML IVPB SCH (18:16)
[2018-07-02] MEDS: ARIPiprazole 2 MG TAB PO SCH (22:01)
[2018-07-03] MEDS: LEVOTHYROXINE 50 MCG TAB PO SCH (05:48)
[2018-07-03 08:20] LABS: Calcium 8.2 mg/dL (8.4-10.2); Magnesium 1.9 mg/dL (1.6-2.3); Potassium 4.8 mmol/L (3.5-5.1)
[2018-07-03] MEDS: SODIUM BICARBONATE TAB 650 MG TAB PO SCH ×2 (08:21→21:40)
[2018-07-03] MEDS: PANTOPRAZOLE 40 MG/10 ML VIAL IVP SCH (08:21)
[2018-07-03] MEDS: ESCITALOPRAM 20 MG TAB PO SCH (08:22)
[2018-07-03] MEDS: FUROSEMIDE 10 MG/ML 10 ML VIAL IV SCH ×2 (08:22→21:23)
[2018-07-03] MEDS: HYDROcodone/APAP 10-325MG 1 EACH TAB PO PRN ×3 (08:27→22:05)
[2018-07-03] MEDS: ONDANSETRON 4 MG/2 ML VIAL IVP PRN ×3 (08:28→21:41)
[2018-07-03] MEDS: SODIUM FERRIC GLUCONAT-SUCROSE 125 MG in SODIUM CHLORIDE 0.9% 100 ML IVPB SCH (09:36)
--- NOTE | 2018-07-03 11:54 | P.PN ---
Subjective Patient is seen in follow-up for acute kidney injury on chronic kidney disease. Patient has chronic kidney disease stage III with baseline creatinine near 1.3 secondary to nephrosclerosis. Renal function is worsening with creatinine up to 3.88 today which is due to diuresis. Patient presented with edema and over 40 pound weight gain over the last 2 weeks. She is currently maintained on Lasix 80 mg IV twice daily. She's wearing briefs so accurate urine output is not documented. Still quite edematous but improving. Hydronephrosis noted on ultrasound as well as CAT scan. She has bilateral ureteral stents that were exchanged earlier this month. Denies chest pain. Oral intake is fair. Vital signs are stable. General: The patient appeared well nourished and normally developed. HEENT: Head exam is unremarkable. Neck is without jugular venous distension. LUNGS: Breath sounds decreased. HEART: Rate and Rhythm are regular. First and second heart sounds normal. No murmurs, rubs or gallops. ABDOMEN: Abdominal exam reveals normal bowel sounds. Non-tender and non- distended. No evidence of peritonitis. EXTREMITITES: 2+ edema. Objective - Vital Signs Vital signs: Vital Signs Temp 99.3 F 07/03/18 07:00 Pulse 94 07/03/18 07:00 Resp 16 07/03/18 08:00 BP 105/60 07/03/18 07:00 Pulse Ox 94 L 07/03/18 07:00 Intake & Output 07/02/18 07/03/18 07/03/18 18:59 06:59 18:59 Intake Total 236 100 Balance 236 100 Weight 92.2 kg 91.9 kg Intake: Oral 236 100 Other: # Voids 4 - Labs CBC & Chem 7: 07/02/18 07:10 07/03/18 07:28 Labs: Abnormal Lab Results - Last 24 Hours (Table) 07/02/18 07/02/18 07/02/18 Range/Units 07:10 07:10 07:10 ESR 47 H (0-20) mm/hr Chloride (98-107) mmol/L Carbon Dioxide (22-30) mmol/L BUN (7-17) mg/dL Creatinine (0.52-1.04) mg/dL Glucose (74-99) mg/dL Calcium (8.4-10.2) mg/dL Iron 9 L (50-170) ug/dL Total Protein (PEP) 5.2 L (6.2-8.2) g/dL Urine Appearance (Clear) Urine Protein (Negative) Urine Blood (Negative) Ur Leukocyte Esterase (Negative) Urine RBC (0-5) /hpf Urine WBC (0-5) /hpf Urine WBC Clumps (None) /hpf Ur Squamous Epith Cells (0-4) /hpf Urine Bacteria (None) /hpf U Random Total Protein (<12) mg/dL IgA 359.0 H (60.0-350.0) mg/dL Rheumatoid Factor 41 H (0-15) IU/mL Free [place] LC, Quant 20.80 H (0.33-1.94) mg/dL Free [place] LC, Quant 8.87 H (0.57-2.63) mg/dL 07/02/18 07/02/18 07/03/18 Range/Units 14:15 14:15 07:28 ESR (0-20) mm/hr Chloride 115 H (98-107) mmol/L Carbon Dioxide 18 L (22-30) mmol/L BUN 46 H (7-17) mg/dL Creatinine 3.88 H (0.52-1.04) mg/dL Glucose 100 H (74-99) mg/dL Calcium 8.2 L (8.4-10.2) mg/dL Iron (50-170) ug/dL Total Protein (PEP) (6.2-8.2) g/dL Urine Appearance Turbid H (Clear) Urine Protein 1+ H (Negative) Urine Blood Moderate H (Negative) Ur Leukocyte Esterase Large H (Negative) Urine RBC 90 H (0-5) /hpf Urine WBC >182 H (0-5) /hpf Urine WBC Clumps Many H (None) /hpf Ur Squamous Epith Cells 8 H (0-4) /hpf Urine Bacteria Rare H (None) /hpf U Random Total Protein 47 H (<12) mg/dL IgA (60.0-350.0) mg/dL Rheumatoid Factor (0-15) IU/mL Free [place] LC, Quant (0.33-1.94) mg/dL Free [place] LC, Quant (0.57-2.63) mg/dL Microbiology - Last 24 Hours (Table) 07/02/18 14:15 Urine Culture - Preliminary Urine,Voided Assessment and Plan Plan: Assessment: 1. Acute kidney injury secondary to obstructive uropathy and diuresis. Creatinine 3.88 today. No evidence of nephrotic syndrome - UPC 1.15. Last month's UA revealed no evidence of proteinuria. 2. Bilateral hydronephrosis. Patient had bilateral ureteral stents exchanged earlier this month. Urology following. 3. Metabolic acidosis secondary to acute kidney injury. Maintained on oral sodium bicarbonate. 4. Volume overload. Again this is likely from underlying obstructive etiology. Echocardiogram revealed preserved ejection fraction. No evidence of nephrotic syndrome. 5. Anemia of chronic kidney disease. Severe iron deficiency noted. 6. Hypomagnesemia secondary to diuresis. Better. Plan: Maintain Lasix 80 mg IV twice daily. IV iron 3 doses. Second dose today. Add Aranesp. Follow-up electrophoresis studies. Follow-up urine culture. Check serologies although doubt GN.
[2018-07-03] MEDS: DARBEPOETIN ALFA 40 MCG/0.4 ML SYRINGE SQ SCH (14:35)
--- NOTE | 2018-07-03 16:11 | P.PN ---
Subjective Progress Note Date: 07/03/18 This is a 67-year-old female presented to the ER as advised by PCP with significant bilateral leg edema, approximate 40 pound weight gain in 2-1/2 weeks, shortness of breath with exertion and laying flat, acute on chronic renal failure in a patient who recently had renal stents replaced 2 weeks ago. Repo rts had nausea vomiting and diarrhea at home, diarrhea has subsided. This morning he had nausea with dry heaving, received Zofran. Reports incontinent of urine for the last 7-8 months. Denies chest pain. Denies history of CHF. Abdominal x-ray nonspecific, renal ultrasound reporting bilateral hy dronephrosis. EKG sinus rhythm. Echo pending. Creatinine 3.26 on admission up to 3.37. Hemoglobin 8.5, on admission, down to 7.6. Denies chest pain, palpitations. Complains of right-sided mid to lower quadrant abdominal pain that radiates to the back. Patient recently completed IV antibiotic therapy of Invanz for [id number] E. coli UTI, with PICC line discontinued this past Saturday. States she has been dealing with recurrent bladder infections for over 1 year. On 06/11/2018 patient was 72.4 kg, now 92.53 on admission. Afebrile, WBC 4.4.systolic blood pressures 90s to 110s. 07/02/2018 Maintained on IV push Lasix, I&O inaccurate secondary to incontinence. Reweighed this afternoon on standing scale, 92.2 kg, 92.5 kg on admission. Echo reporting normal LV function, 55-60%. Magnesium 1.1, receiving supplements. CT of abdomen ordered by urology, pending. Creatinine worsening, 3.73. Significant bilateral lower extremity edema persists, mildly improved. Denies chest pain, palpitations or increased shortness of breath. 07/03/2018 maintained on diuretics as per nephrology. Renal function continues worsening up to 3.88. Inaccurate I& O secondary to incontinence. Bilateral lower extremity edema slowly improving. Abdomen increasing firmness. Complains of nausea. Denies chest pain, palpitations. No increasing shortness of breath except when laying flat, or with minimal exertion. Bilateral hydronephrosis reported on computed tomography scan with bilateral ureteral stents present. Objective - Vital Signs Vital signs: Vital Signs Temp 98.6 F 07/03/18 15:00 Pulse 83 07/03/18 15:00 Resp 16 07/03/18 15:00 BP 99/64 07/03/18 15:00 Pulse Ox 94 L 07/03/18 15:00 Intake & Output 07/02/18 07/03/18 07/03/18 18:59 06:59 18:59 Intake Total 236 100 Balance 236 100 Weight 92.2 kg 91.9 kg Intake: Oral 236 100 Other: # Voids 4 - Exam PHYSICAL EXAM: VITAL SIGNS: As above GENERAL: Sitting up in bed, no acute distress, nauseated, tired appearing HEENT: Conjunctivae normal. eyes normal. Oral mucosa moist NECK: No JVD. No thyroid enlargement. No LNs CARDIOVASCULAR: S1, S2 muffled. No murmur RESPIRATION: Breath sounds diminished in the bases. No rhonchi or crackles. No bronchial breathing. ABDOMEN: Soft, firm ,distended, positive ascites, persistent right mid- lower quadrant tenderness extending to right flank area. No guarding. no masses palpable. Bowel sounds heard. LEGS: Mildly improved, softer ,Positive bilateral lower extremity edema, up to groin PSYCHIATRY: Alert and oriented -3, mood and affect normal. NERVOUS SYSTEM: Cranial N 2-12 grossly normal. Diffuse weakness No focal deficits Skin: no lesions, no rash - Labs CBC & Chem 7: 07/02/18 07:10 07/03/18 07:28 Labs: Abnormal Lab Results - Last 24 Hours (Table) 07/03/18 Range/Units 07:28 Chloride 115 H (98-107) mmol/L Carbon Dioxide 18 L (22-30) mmol/L BUN 46 H (7-17) mg/dL Creatinine 3.88 H (0.52-1.04) mg/dL Glucose 100 H (74-99) mg/dL Calcium 8.2 L (8.4-10.2) mg/dL Microbiology - Last 24 Hours (Table) 07/02/18 14:15 Urine Culture - Preliminary Urine,Voided Assessment and Plan Assessment: -Fluid overload related to obstructive uropathy without evidence of nephrotic syndrome. Significant bilateral leg edema. Echo reporting normal LV function. -Acute on chronic renal failure, stage III. Acute secondary to obstructive uropathy, and diuresing. Chronic secondary to nephrosclerosis. Baseline 1.3 -Bilateral hydronephrosis in a patient with recent bilateral ureteral stent replacements. -Anemia of chronic disease, secondary to renal failure, iron deficiency -Metabolic acidosis secondary to acute renal failure -Recurrent UTIs, recently treated for multidrug resistant E. coli UTI -History of nonalcoholic cirrhosis -Clotting disorder, not factor V -Hypertension -Depression -Melanoma, uterine cancer, Lung Ca, breast cancer -History of DVT -Hypomagnesemia Plan: Continue on current medication regime , sodium bicarb ,monitoring and symptomatic treatment. King catheter to be placed for accurate I&O .maintain diuresing as per nephrology .urine culture pending .further recommendations from urology pending. Prognosis guarded given multiple complex medical issues. The impression and plan of care has been dictated as directed. : I performed a history and examination of this patient, discussed the same with the dictator. I agree with the dictator's note ,documented as a scribe. Any additional findings or plans will be noted. Time taken: 35 minutes
[2018-07-03] MEDS: SODIUM CHLORIDE 0.9% 1,000 ML IV SCH (17:04)
[2018-07-03] MEDS: ASPIRIN 81 MG PO SCH (17:06)
[2018-07-03] MEDS: CHOLECALCIFEROL 1,000 UNIT TAB PO SCH (17:06)
--- NOTE | 2018-07-03 19:44 | P.PN ---
Subjective Progress Note Date: 07/03/18 the patient is known for bilateral hydronephrosis. SHe recently had stent exchange without difficulty SHe presented with weight gain and worsening of her kidney function THe stents are in good place I will exchange her stents but I doubt that it will correct her problem. I will set her up for this t omorrow Objective - Vital Signs Vital signs: Vital Signs Temp 98.6 F 07/03/18 15:00 Pulse 83 07/03/18 15:00 Resp 16 07/03/18 16:00 BP 99/64 07/03/18 15:00 Pulse Ox 94 L 07/03/18 15:00 Intake & Output 07/03/18 07/03/18 07/04/18 06:59 18:59 06:59 Intake Total 100 Output Total 1000 Balance 100 -1000 Weight 91.9 kg Intake: Oral 100 Output: Urine 1000 Uretheral (King) 400 Other: Voiding Method Indwelling Catheter # Voids 4 - Labs CBC & Chem 7: 07/02/18 07:10 07/03/18 07:28 Labs: Abnormal Lab Results - Last 24 Hours (Table) 07/03/18 Range/Units 07:28 Chloride 115 H (98-107) mmol/L Carbon Dioxide 18 L (22-30) mmol/L BUN 46 H (7-17) mg/dL Creatinine 3.88 H (0.52-1.04) mg/dL Glucose 100 H (74-99) mg/dL Calcium 8.2 L (8.4-10.2) mg/dL Microbiology - Last 24 Hours (Table) 07/02/18 14:15 Urine Culture - Preliminary Urine,Voided
[2018-07-03] MEDS: ARIPiprazole 2 MG TAB PO SCH (21:40)
[2018-07-04] MEDS: LEVOTHYROXINE 50 MCG TAB PO SCH (05:45)
[2018-07-04] MEDS: ONDANSETRON 4 MG/2 ML VIAL IVP PRN ×3 (05:57→23:00)
[2018-07-04] MEDS: HYDROcodone/APAP 10-325MG 1 EACH TAB PO PRN ×3 (06:14→23:00)
[2018-07-04] MEDS: ESCITALOPRAM 20 MG TAB PO SCH (07:33)
[2018-07-04] MEDS: SODIUM BICARBONATE TAB 650 MG TAB PO SCH ×2 (07:33→21:14)
[2018-07-04] MEDS: PANTOPRAZOLE 40 MG/10 ML VIAL IVP SCH (07:33)
[2018-07-04] MEDS: FUROSEMIDE 10 MG/ML 10 ML VIAL IV SCH ×2 (07:33→21:14)
[2018-07-04 08:33] LABS: Anisocytosis Slight; HGB 8.3 gm/dL (11.4-16.0); Hypochromasia Marked; MCH 28.9 pg (25.0-35.0); MCHC 31.9 g/dL (31.0-37.0); MCV 90.6 fL (80.0-100.0); Mean Platelet Volume 7.8; Platelet Count 250 k/uL (150-450); RBC 2.87 m/uL (3.80-5.40); RDW 16.5 % (11.5-15.5); WBC 6.3 k/uL (3.8-10.6)
[2018-07-04] MEDS: SODIUM FERRIC GLUCONAT-SUCROSE 125 MG in SODIUM CHLORIDE 0.9% 100 ML IVPB SCH (08:42)
--- NOTE | 2018-07-04 09:13 | P.PN ---
Subjective Patient is seen in follow-up for acute kidney injury on chronic kidney disease. Patient has chronic kidney disease stage III with baseline creatinine near 1.3 secondary to nephrosclerosis. Renal function has been worsening over the last few days. Creatinine was 3.88 yesterday and is 3.85 today. Patient presented with edema and over 40 pound weight gain over the last 2 weeks. She is currently maintained on Lasix 80 mg IV twice daily. King catheter was inserted yesterday for strict I's and O's. Urine output documented as 2 L in the last 24 hours. Still quite edematous but improving. Hydronephrosis noted on ultrasound as well as CAT scan. She has bilateral ureteral stents that were exchanged earlier this month - she is scheduled to undergo stent exchange today. Denies chest pain. Oral intake is fair. Vital signs are stable. General: The patient appeared well nourished and normally developed. HEENT: Head exam is unremarkable. Neck is without jugular venous distension. LUNGS: Breath sounds decreased. HEART: Rate and Rhythm are regular. First and second heart sounds normal. No murmurs, rubs or gallops. ABDOMEN: Abdominal exam reveals normal bowel sounds. Non-tender and non- distended. No evidence of peritonitis. EXTREMITITES: 2+ edema. Objective - Vital Signs Vital signs: Vital Signs Temp 98 F 07/04/18 07:00 Pulse 89 07/04/18 07:00 Resp 18 07/04/18 07:38 BP 101/55 07/04/18 07:00 Pulse Ox 90 L 07/04/18 07:00 Intake & Output 07/03/18 07/04/18 07/04/18 18:59 06:59 18:59 Intake Total 250 Output Total 1000 1025 Balance -1000 -775 Weight 91.231 kg Intake: Oral 250 Output: Urine 1000 1025 Uretheral (King) 400 Other: Voiding Method Indwelling Catheter Indwelling Catheter Indwelling Catheter - Labs CBC & Chem 7: 07/04/18 08:19 07/04/18 08:19 Labs: Abnormal Lab Results - Last 24 Hours (Table) 07/02/18 07/04/18 07/04/18 Range/Units 07:10 08: 08:19 RBC 2.87 L (3.80-5.40) m/uL Hgb 8.3 L (11.4-16.0) gm/dL Hct 26.0 L (34.0-46.0) % RDW 16.5 H (11.5-15.5) % BUN 51 H (7-17) mg/dL Creatinine 3.85 H (0.52-1.04) mg/dL Methylmalonic Acid 0.64 H (<0.40) umol/L Microbiology - Last 24 Hours (Table) 07/02/18 14:15 Urine Culture - Final Urine,Voided Assessment and Plan Plan: Assessment: 1. Acute kidney injury secondary to obstructive uropathy and diuresis. Creatinine 3.85 today. No evidence of nephrotic syndrome - UPC 1.15. Last month's UA revealed no evidence of proteinuria. Urine eosinophils 2%. YVETTE negative. 2. Bilateral hydronephrosis. Patient had bilateral ureteral stents exchanged earlier this month. Urology following. Scheduled for stent exchange today. 3. Metabolic acidosis secondary to acute kidney injury. Maintained on oral sodium bicarbonate. 4. Volume overload. Again this is likely from underlying obstructive etiology. Echocardiogram revealed preserved ejection fraction. No evidence of nephrotic syndrome. 5. Anemia of chronic kidney disease. Severe iron deficiency noted. 6. Hypomagnesemia secondary to diuresis. Better. Plan: Maintain Lasix 80 mg IV twice daily. IV iron 3 doses. Third dose today. Maintain Aranesp. Follow-up pending serologies. Discontinue Protonix. I will add Pepcid instead. I will start her on trial of steroids for possible ALLERGIC interstitial nephritis - prednisone 60 mg daily and gradually taper over the next 1-2 months depending on her renal function.
[2018-07-04] MEDS: FAMOTIDINE 20 MG TAB PO SCH (09:55)
--- NOTE | 2018-07-04 09:59 | P.PN ---
Subjective Progress Note Date: 07/04/18 This is a 67-year-old female presented to the ER as advised by PCP with significant bilateral leg edema, approximate 40 pound weight gain in 2-1/2 weeks, shortness of breath with exertion and laying flat, acute on chronic renal failure in a patient who recently had renal stents replaced 2 weeks ago. Repo rts had nausea vomiting and diarrhea at home, diarrhea has subsided. This morning he had nausea with dry heaving, received Zofran. Reports incontinent of urine for the last 7-8 months. Denies chest pain. Denies history of CHF. Abdominal x-ray nonspecific, renal ultrasound reporting bilateral hy dronephrosis. EKG sinus rhythm. Echo pending. Creatinine 3.26 on admission up to 3.37. Hemoglobin 8.5, on admission, down to 7.6. Denies chest pain, palpitations. Complains of right-sided mid to lower quadrant abdominal pain that radiates to the back. Patient recently completed IV antibiotic therapy of Invanz for [id number] E. coli UTI, with PICC line discontinued this past Saturday. States she has been dealing with recurrent bladder infections for over 1 year. On 06/11/2018 patient was 72.4 kg, now 92.53 on admission. Afebrile, WBC 4.4.systolic blood pressures 90s to 110s. 07/02/2018 Maintained on IV push Lasix, I&O inaccurate secondary to incontinence. Reweighed this afternoon on standing scale, 92.2 kg, 92.5 kg on admission. Echo reporting normal LV function, 55-60%. Magnesium 1.1, receiving supplements. CT of abdomen ordered by urology, pending. Creatinine worsening, 3.73. Significant bilateral lower extremity edema persists, mildly improved. Denies chest pain, palpitations or increased shortness of breath. 07/03/2018 maintained on diuretics as per nephrology. Renal function continues worsening up to 3.88. Inaccurate I& O secondary to incontinence. Bilateral lower extremity edema slowly improving. Abdomen increasing firmness. Complains of nausea. Denies chest pain, palpitations. No increasing shortness of breath except when laying flat, or with minimal exertion. Bilateral hydronephrosis reported on computed tomography scan with bilateral ureteral stents present. 07/04/2018 King catheter inserted yesterday for strict I&O's; diuresing well on Lasix IV push with 24-hour I&O reflecting a negative fluid balance, significant edema present-improving. Case discussed with urology yesterday afternoon, patient is scheduled for stent exchange today. Creatinine 3.85( 3.88 yesterday). Abdomen distended, firm. Complains of right abdominal quadrant tenderness extending to right flank -unchanged, mild increased shortness of breath. Currently wearing 2 L nasal cannula. maintaining O2 sats of flow 90s. Denies chest pain, palpitations. Afebrile, T-max 99, normal WBC. Urine culture negative. Objective - Vital Signs Vital signs: Vital Signs Temp 98 F 07/04/18 07:00 Pulse 89 07/04/18 07:00 Resp 18 07/04/18 07:38 BP 101/55 07/04/18 07:00 Pulse Ox 90 L 07/04/18 07:00 Intake & Output 07/03/18 07/04/18 07/04/18 18:59 06:59 18:59 Intake Total 250 Output Total 1000 1025 Balance -1000 -775 Weight 91.231 kg Intake: Oral 250 Output: Urine 1000 1025 Uretheral (King) 400 Other: Voiding Method Indwelling Catheter Indwelling Catheter Indwelling Catheter - Exam PHYSICAL EXAM: VITAL SIGNS: As above GENERAL: Sitting up in bed, no acute distress HEENT: Conjunctivae normal. eyes normal. NECK: No JVD. No thyroid enlargement. No LNs CARDIOVASCULAR: S1, S2 muffled. No murmur RESPIRATION: Breath sounds diminished in the bases. No rhonchi or crackles. No w heezing. ABDOMEN: Soft, firm ,distended, positive ascites, persistent right mid- lower quadrant tenderness extending to right flank area. No guarding. no masses palpable. Bowel sounds heard. LEGS: Slowly improving, softer ,Positive bilateral lower extremity edema, up to groin PSYCHIATRY: Alert and oriented -3, mood and affect normal. NERVOUS SYSTEM: Cranial N 2-12 grossly normal. Diffuse weakness No focal deficits Skin: no lesions, no rash - Labs CBC & Chem 7: 07/04/18 08:19 07/04/18 08:19 Labs: Abnormal Lab Results - Last 24 Hours (Table) 07/02/18 07/04/18 07/04/18 Range/Units 07:10 08:19 08:19 RBC 2.87 L (3.80-5.40) m/uL Hgb 8.3 L (11.4-16.0) gm/dL Hct 26.0 L (34.0-46.0) % RDW 16.5 H (11.5-15.5) % BUN 51 H (7-17) mg/dL Creatinine 3.85 H (0.52-1.04) mg/dL Methylmalonic Acid 0.64 H (<0.40) umol/L Microbiology - Last 24 Hours (Table) 07/02/18 14:15 Urine Culture - Final Urine,Voided Assessment and Plan Assessment: -Fluid overload related to obstructive uropathy without evidence of nephrotic syndrome. Significant bilateral leg edema. Echo reporting normal LV function. -Acute on chronic renal failure, stage III. Acute secondary to obstructive uropathy, and diuresing. Chronic secondary to nephrosclerosis. Baseline 1.3 -Bilateral hydronephrosis in a patient with recent bilateral ureteral stent replacements. -Anemia of chronic disease, secondary to renal failure, iron deficiency -Metabolic acidosis secondary to acute renal failure -Recurrent UTIs, recently treated for multidrug resistant E. coli UTI -History of nonalcoholic cirrhosis -Clotting disorder, not factor V -Hypertension -Depression -Melanoma, uterine cancer, Lung Ca, breast cancer -History of DVT -Hypomagnesemia, improving Plan: Continue on current medication regime , Pepcid, sodium bicarb ,monitoring and symptomatic treatment. Maintain strict I&O . Patient is an add-on for today with urology for stent replacements-pending . Steroids added to med regime for potential ALLERGIC interstitial nephritis .Continue diuresing as per nephrology . Close monitoring of renal function, electrolytes with repeat labs ordered for a.m. Prognosis guarded given multiple complex medical issues. The impression and plan of care has been dictated as directed. : I performed a history and examination of this patient, discussed the same with the dictator. I agree with the dictator's note ,documented as a scribe. Any additional findings or plans will be noted. Time taken: 35 minutes
[2018-07-04 13:51] LABS: Albumin 1.96 g/dL (3.80-4.90); Gamma Globulin 1.23 g/dL (0.70-1.50)
[2018-07-04] MEDS ORDERED: LACTATED RINGERS 1,000 ML IV ONE ×2 (14:30→16:00)
[2018-07-04] MEDS ORDERED: SUCCINYLCHOLINE CHLORIDE 100 MG/5 ML SYR IV ONE (15:22)
[2018-07-04] MEDS ORDERED: LIDOCAINE 1% INJ 10MG/ML (20 ML MDV) ONE (15:22)
[2018-07-04] MEDS ORDERED: PROPOFOL 10 MG/ML 20 ML VIAL IV ONE (15:22)
[2018-07-04 16:15] LABS: Hepatitis A Antibody IgM Non-Reactive (Non-Reactive); Hepatitis B Core IgM Non-Reactive (Non-Reactive)
--- NOTE | 2018-07-04 16:19 | P.OP ---
Date of Procedure: 07/04/18 Preoperative Diagnosis: bilateral hydronephrosis Postoperative Diagnosis: same, Procedure(s) Performed: cysto with exchange of double catheter 7 x24 Anesthesia: LENA Surgeon: Dorian Contreras Estimated Blood Loss (ml): 25 Pathology: none sent Condition: stable Disposition: PACU Indications for Procedure: The patient is a 67-year-old female with multiple cancers including [employer] cancer for which she has had radiation therapy. She developed bilateral hydronephrosis felt to be due to either metastatic cancer or radiation obstruction of the ureters. Bilateral double-J catheters were placed several months ago. It was felt by her oncologist at the [facility] that her obstruction was not due to cancer. She had exchange of her catheters several weeks ago. She presented the hospital with weight gain and increasing renal failure with a creatinine of 3.3. His remained in the mid 3 range ever since. She had a King catheter placed and it did not improve her creatinine. She had a computed tomography scan of abdomen and pelvis looking for disease causing obstruction of her lower extremities and none was seen. She is marked swelling of her lower extremities. She has ascites. The question is whether the catheters or obstructed in the ureters causing the rising creatinine or whether she has other problems leading to this. She comes for exchange catheters. Description of Procedure: The patient is brought to the operating suite. She's given general endotracheal anesthesia. She's placed lithotomy position with sterile prep and drape. She has marked perineal irritation. The King catheter was removed. She is given a sterile prep and drape. Cystoscopy Foroblique lens and 22-Greek sheath is performed. The bladder somewhat inflamed. There is catheter debris. There is no tumor noted. The right double-J catheters grasped with the grasping forceps and pulled the urethral meatus. An 035 wires passed through this up into the kidney. His backloaded on the cystoscope and a new 7 x 24 double-J catheters passed up into the right kidney that coils in the kidney and the bladder. I do the same on the left side appeared to pass a new 7 x 24 double-J catheter without difficulty. The cystoscope was removed. Catheters are in good place endoscopically and fluoroscopically. A new 16-Greek catheter is placed. We'll see if this helps her renal insufficiency. I'm more concerned however about her ascites and lower extremity edema worrying about carcinomatosis.
[2018-07-04] MEDS: SODIUM CHLORIDE 0.9% 1,000 ML IV SCH (17:25)
[2018-07-04] MEDS: ASPIRIN 81 MG PO SCH (17:25)
[2018-07-04] MEDS: CHOLECALCIFEROL 1,000 UNIT TAB PO SCH (17:25)
[2018-07-04] MEDS: predniSONE 20 MG TAB PO SCH (17:25)
[2018-07-04 20:47] LABS: DNA Double-Stranded NEGATIVE (NEGATIVE)
[2018-07-04] MEDS: ARIPiprazole 2 MG TAB PO SCH (21:14)
[2018-07-05] MEDS: LEVOTHYROXINE 50 MCG TAB PO SCH (05:59)
[2018-07-05 07:40] LABS: Calcium 8.5 mg/dL (8.4-10.2); Magnesium 1.7 mg/dL (1.6-2.3); Potassium 4.4 mmol/L (3.5-5.1)
[2018-07-05] MEDS: FUROSEMIDE 10 MG/ML 10 ML VIAL IV SCH ×2 (08:22→21:12)
[2018-07-05] MEDS: ONDANSETRON 4 MG/2 ML VIAL IVP PRN ×3 (08:22→21:31)
[2018-07-05] MEDS: HYDROcodone/APAP 10-325MG 1 EACH TAB PO PRN ×3 (08:23→21:30)
[2018-07-05] MEDS: ESCITALOPRAM 20 MG TAB PO SCH (08:23)
[2018-07-05] MEDS: FAMOTIDINE 20 MG TAB PO SCH (08:23)
[2018-07-05] MEDS: predniSONE 20 MG TAB PO SCH (08:23)
[2018-07-05] MEDS: SODIUM BICARBONATE TAB 650 MG TAB PO SCH ×2 (08:23→21:24)
[2018-07-05] MEDS: SODIUM FERRIC GLUCONAT-SUCROSE 125 MG in SODIUM CHLORIDE 0.9% 100 ML IVPB SCH (09:31)
--- NOTE | 2018-07-05 09:42 | P.PN ---
Subjective Progress Note Date: 07/05/18 The patient underwent exchange of bilateral stents yesterday without problems. Her urine output is been excellent overnight. Unfortunately her creatinine only dropped minimally. We will continue to monitor. I suspect this problem is not due to her ureteral obstruction. Objective - Vital Signs Vital signs: Vital Signs Temp 97.4 F L 07/05/18 07:45 Pulse 72 07/05/18 07:45 Resp 16 07/05/18 07:45 BP 113/59 07/05/18 07:45 Pulse Ox 96 07/05/18 07:45 Intake & Output 07/04/18 07/05/18 07/05/18 18:59 06:59 18:59 Intake Total 550 Output Total 650 1850 Balance -100 -1850 Weight 87.3 kg Intake: IV 550 Output: Urine 650 1850 Uretheral (King) 1850 Other: Voiding Method Indwelling Catheter Indwelling Catheter Indwelling Catheter # Bowel Movements 1 - Labs CBC & Chem 7: 07/04/18 08:19 07/05/18 07:05 Labs: Abnormal Lab Results - Last 24 Hours (Table) 07/02/18 07/05/18 Range/Units 07:10 07:05 Chloride 113 H (98-107) mmol/L Carbon Dioxide 20 L (22-30) mmol/L BUN 52 H (7-17) mg/dL Creatinine 3.79 H (0.52-1.04) mg/dL Glucose 172 H (74-99) mg/dL Albumin (PEP) 1.96 L (3.80-4.90) g/dL [id number] 0.43 H (0.10-0.40) g/dL
--- NOTE | 2018-07-05 10:15 | FL ---
Fluoroscopy HISTORY: Cystoscopy with stent exchange 8 seconds fluoroscopy time supplied to the referring clinician. 0 intraoperative C-arm images docume nt the procedure. See dictated report from urology.
--- NOTE | 2018-07-05 11:19 | PN ---
PROGRESS NOTE Patient underwent a bilateral ureteral stent wound removal due to worsening renal failure, worsening hydronephrosis and a 50 pound weight gain in 2 weeks since the stents were priorly replaced. Her creatinine is slowly improving. Today it is a little bit better down to 3.79 from 3.8 cm. If she continues to worsen, does not improve over the next few days, she will need to be transferred down to a tertiary center. LUNGS:Clear. CARDIOVASCULAR: S1, S2. GI: Soft. HEMATOLOGY; Negative Homans. saw her yesterday. Maintain on Lasix 80 IV b.i.d. Quite edematous, but improving. Hydronephrosis continues. Her creatinine is slowly improving. We will continue to follow and if the patient continues to improve with her creatinine level is a good sign and we will continue with diuresis until next week. MMEUGENIOL / AMBER: [id number] /
--- NOTE | 2018-07-05 12:59 | P.PN ---
Subjective Progress Note Date: 07/05/18 Seen and examined for the follow-up of acute kidney injury. Creatinine high but stable. Had stents exchange yesterday. No nausea vomiting or diarrhea. 2.5 L of urine output in the last 24 hours. Objective - Vital Signs Vital signs: Vital Signs Temp 97.4 F L 07/05/18 07:45 Pulse 72 07/05/18 07:45 Resp 16 07/05/18 07:45 BP 113/59 07/05/18 07:45 Pulse Ox 96 07/05/18 07:45 Intake & Output 07/04/18 07/05/18 07/05/18 18:59 06:59 18:59 Intake Total 550 Output Total 650 1850 Balance -100 -1850 Weight 87.3 kg Intake: IV 550 Output: Urine 650 1850 Uretheral (King) 1850 Other: Voiding Method Indwelling Catheter Indwelling Catheter Indwelling Catheter # Bowel Movements 1 - Exam No acute distress Lying in bed S1-S2 heard King catheter Edema - Labs CBC & Chem 7: 07/04/18 08:19 07/05/18 07:05 Labs: Abnormal Lab Results - Last 24 Hours (Table) 07/02/18 07/05/18 Range/Units 07:10 07:05 Chloride 113 H (98-107) mmol/L Carbon Dioxide 20 L (22-30) mmol/L BUN 52 H (7-17) mg/dL Creatinine 3.79 H (0.52-1.04) mg/dL Glucose 172 H (74-99) mg/dL Albumin (PEP) 1.96 L (3.80-4.90) g/dL [id number] 0.43 H (0.10-0.40) g/dL Assessment and Plan Assessment: #1 acute kidney injury secondary to obstructive uropathy. Concern for AIN on steroids #2 CK D3 secondary to recurrent acute kidney injury and obstruction with a baseline creatinine of 1.3 MG per DL #3 volume overload #4 metabolic acidosis #5 anemia with on a kidney disease Plan: #1 continue with Lasix 80 mg IV twice a day #2 monitor renal function closely. #3 on prednisone with a concern for AIN #4 appreciate urology input #5 AM labs
[2018-07-05] MEDS: ASPIRIN 81 MG PO SCH (16:18)
[2018-07-05] MEDS: CHOLECALCIFEROL 1,000 UNIT TAB PO SCH (16:18)
[2018-07-05] MEDS: SODIUM CHLORIDE 0.9% 1,000 ML IV SCH (16:18)
[2018-07-05] MEDS ORDERED: FUROSEMIDE 10 MG/ML 4 ML VIAL IV STA (21:12)
[2018-07-05] MEDS: ARIPiprazole 2 MG TAB PO SCH (21:24)
[2018-07-06] MEDS: HYDROcodone/APAP 10-325MG 1 EACH TAB PO PRN ×4 (02:34→22:27)
[2018-07-06] MEDS: LEVOTHYROXINE 50 MCG TAB PO SCH (05:20)
[2018-07-06] MEDS: ESCITALOPRAM 20 MG TAB PO SCH (07:48)
[2018-07-06] MEDS: SODIUM BICARBONATE TAB 650 MG TAB PO SCH ×2 (07:48→20:22)
[2018-07-06] MEDS: predniSONE 20 MG TAB PO SCH (07:48)
[2018-07-06] MEDS: FAMOTIDINE 20 MG TAB PO SCH (07:48)
[2018-07-06] MEDS: ONDANSETRON 4 MG/2 ML VIAL IVP PRN ×3 (08:24→22:27)
--- NOTE | 2018-07-06 09:52 | P.PN ---
Subjective Progress Note Date: 07/06/18 Unfortunately the creatinine has changed minimally in this patient. Her urine output is good. The ureteral catheter exchange unfortunately has not helped her renal insufficiency at this point in time. Objective - Vital Signs Vital signs: Vital Signs Temp 98.0 F 07/06/18 07:00 Pulse 71 07/06/18 07:00 Resp 20 07/06/18 07:00 BP 98/55 07/06/18 07:00 Pulse Ox 90 L 07/06/18 07:00 Intake & Output 07/05/18 07/06/18 07/06/18 18:59 06:59 18:59 Output Total 1150 Balance -1150 Weight 89.5 kg Output: Urine 1150 Other: Voiding Method Indwelling Catheter Indwelling Catheter Indwelling Catheter - Labs CBC & Chem 7: 07/04/18 08:19 07/05/18 07:05
--- NOTE | 2018-07-06 10:27 | P.PN ---
Subjective Progress Note Date: 07/06/18 Seen and examined for the follow-up of acute kidney injury. Creatinine high but stable, no new labs today. Had stents exchange on Saturday. No nausea vomiting or diarrhea. 1150 ML's of urine output in the last 24 hours. Objective - Vital Signs Vital signs: Vital Signs Temp 98.0 F 07/06/18 07:00 Pulse 71 07/06/18 07:00 Resp 20 07/06/18 07:00 BP 98/55 07/06/18 07:00 Pulse Ox 90 L 07/06/18 07:00 Intake & Output 07/05/18 07/06/18 07/06/18 18:59 06:59 18:59 Output Total 1150 Balance -1150 Weight 89.5 kg Output: Urine 1150 Other: Voiding Method Indwelling Catheter Indwelling Catheter Indwelling Catheter - Exam No acute distress Lying in bed S1-S2 heard King catheter Edema - Labs CBC & Chem 7: 07/04/18 08:19 07/05/18 07:05 Assessment and Plan Assessment: #1 acute kidney injury secondary to obstructive uropathy. Concern for AIN on steroids #2 CK D3 secondary to recurrent acute kidney injury and obstruction with a baseline creatinine of 1.3 MG per DL #3 volume overload #4 metabolic acidosis #5 anemia with on a kidney disease Plan: #1 continue with Lasix 80 mg IV twice a day. No new labs today #2 monitor renal function closely. #3 on prednisone with a concern for AIN #4 appreciate urology input #5 AM labs
[2018-07-06] MEDS: FUROSEMIDE 10 MG/ML 10 ML VIAL IV SCH (10:39)
[2018-07-06] MEDS: SODIUM CHLORIDE 0.9% 1,000 ML IV SCH (16:19)
[2018-07-06] MEDS: CHOLECALCIFEROL 1,000 UNIT TAB PO SCH (16:19)
[2018-07-06] MEDS: ASPIRIN 81 MG PO SCH (16:19)
--- NOTE | 2018-07-06 16:52 | PN ---
PROGRESS NOTE DATE OF SERVICE: 07/06/2018 She was seen on July 06, 2018. I am covering for Dr. Miles Collado. The patient is feeling weak. She is less short of breath. Continues to lose fluid. She is sitting up in bed and is not in any respiratory distress. PHYSICAL EXAMINATION: The blood pressure is 111/63, respiratory rate of 16, pulse rate 75, temperature 97.9 degrees Fahrenheit, O2 saturation on room air is 92%. HEENT is unremarkable. CHEST: Reveals decreased breath sounds in the bases. CARDIOVASCULAR SYSTEM: S1, S2. ABDOMEN is soft. EXTREMITIES: There is 1+ to 2+ pedal edema. BUN is 52, creatinine of 3.79, sodium 143, potassium 4.4, chloride 113, bicarb 20. I's and O's shows fluid balance to be -900, but it is unclear whether this is accurate as her intake is 0. Her weight itself has gone up. IMPRESSION: At this time is: 1. Acute on chronic renal failure. 2. Hydronephrosis status post stent placement. Continue steroids, Lasix. Appreciate Nephrology and Urology input and interventions. MMODL / IJN: [id number] /
[2018-07-06] MEDS: ARIPiprazole 2 MG TAB PO SCH (20:22)
[2018-07-06] MEDS: FUROSEMIDE 10 MG/ML 4 ML VIAL IV SCH (20:22)
[2018-07-07] MEDS: ONDANSETRON 4 MG/2 ML VIAL IVP PRN ×4 (05:54→22:59)
[2018-07-07] MEDS: HYDROcodone/APAP 10-325MG 1 EACH TAB PO PRN ×4 (05:54→22:59)
[2018-07-07] MEDS: LEVOTHYROXINE 50 MCG TAB PO SCH (05:54)
[2018-07-07] MEDS: FUROSEMIDE 10 MG/ML 4 ML VIAL IV SCH (07:59)
[2018-07-07] MEDS: ESCITALOPRAM 20 MG TAB PO SCH (07:59)
[2018-07-07] MEDS: SODIUM BICARBONATE TAB 650 MG TAB PO SCH ×2 (07:59→19:58)
[2018-07-07] MEDS: FAMOTIDINE 20 MG TAB PO SCH (07:59)
[2018-07-07] MEDS: predniSONE 20 MG TAB PO SCH (07:59)
[2018-07-07 08:08] LABS: Calcium 8.8 mg/dL (8.4-10.2); Potassium 4.3 mmol/L (3.5-5.1)
--- NOTE | 2018-07-07 11:27 | P.PN ---
Subjective Patient is seen in follow-up for acute kidney injury on chronic kidney disease. Patient has chronic kidney disease stage III with baseline creatinine near 1.3 secondary to nephrosclerosis. Renal function slightly improved. Creatinine 2.57 today. Patient presented with edema and over 40 pound weight gain over 2 weeks. She is currently maintained on Lasix 40 mg IV twice daily. King catheter was inserted for strict I's and O's. Urine output documented as 2.1 L in the last 24 hours. Still quite edematous but improving. Hydronephrosis not ed on ultrasound as well as CAT scan. She has bilateral ureteral stents that were exchanged on July 04. Denies chest pain. Oral intake is fair. Vital signs are stable. General: The patient appeared well nourished and normally developed. HEENT: Head exam is unremarkable. Neck is without jugular venous distension. LUNGS: Breath sounds decreased. HEART: Rate and Rhythm are regular. First and second heart sounds normal. No murmurs, rubs or gallops. ABDOMEN: Abdominal exam reveals normal bowel sounds. Non-tender and non- distended. No evidence of peritonitis. EXTREMITITES: 2+ edema. Objective - Vital Signs Vital signs: Vital Signs Temp 97.8 F 07/07/18 07:45 Pulse 71 07/07/18 07:45 Resp 16 07/07/18 07:45 BP 112/66 07/07/18 07:45 Pulse Ox 95 07/07/18 07:45 Intake & Output 07/06/18 07/07/18 07/07/18 18:59 06:59 18:59 Intake Total 100 Output Total 900 1250 Balance -900 -1150 Intake: Oral 100 Output: Urine 900 1250 Uretheral (King) 1250 Other: Voiding Method Indwelling Catheter Indwelling Catheter Indwelling Catheter - Labs CBC & Chem 7: 07/04/18 08:19 07/07/18 07:04 Labs: Abnormal Lab Results - Last 24 Hours (Table) 07/04/18 07/07/18 Range/Units 08:19 07:04 Chloride 110 H (98-107) mmol/L BUN 69 H (7-17) mg/dL Creatinine 3.57 H (0.52-1.04) mg/dL Glucose 120 H (74-99) mg/dL Tot Complement (CH50) >98 H (42 - 95) U/mL Assessment and Plan Plan: Assessment: 1. Acute kidney injury secondary to obstructive uropathy and diuresis. Creatinine 3.57 today. No evidence of nephrotic syndrome - UPC 1.15. Last month's UA revealed no evidence of proteinuria. Urine eosinophils 2%. Rest of the serologies negative. 2. Bilateral hydronephrosis. Patient had bilateral ureteral stents exchanged on July 04. Urology following. 3. Metabolic acidosis secondary to acute kidney injury. Maintained on oral sodium bicarbonate. Better. 4. Volume overload. Echocardiogram revealed preserved ejection fraction. No evidence of nephrotic syndrome. 5. Anemia of chronic kidney disease. Severe iron deficiency noted. Status post 3 doses of IV iron. Maintained on Aranesp. 6. Hypomagnesemia secondary to diuresis. Plan: Start Lasix drip at 10 mL an hour. Discontinued Protonix. Now on Pepcid. Maintain prednisone for possible ALLERGIC interstitial nephritis. Prednisone was started on July 04. This will be tapered over the next 1-2 months outpatient. Repeat electrolytes in the morning. Patient will be at high risk for kidney biopsy due to atrophic left kidney as well as hydronephrosis bilaterally.
[2018-07-07] MEDS: FUROSEMIDE 100 MG in SODIUM CHLORIDE 0.9% 90 ML IV SCH ×2 (11:59→19:57)
--- NOTE | 2018-07-07 12:50 | PN ---
PROGRESS NOTE She is status post ureteral stents placement. Her Lasix was cut from 80 mg down to 40 mg by myself due to hypotension. Her creatinine is improving from 3.79 down to 3.57. She is on IV iron doses for severe anemia. Awaiting renal recommendations. She is on a prednisone taper. Creatinine appears to be slowly improving. She is on Pepcid for GERD. Midrin p.r.n. for hypotension. She is on prednisone oral, sodium bicarbonate oral. Her diet is being advanced. She has been started on low-dose Lasix drip. Her renal physician, her lymphedema-type changes are improving. Blood pressure is now in the 101-112 systolic over 58-66, 95% on room air, temp 97.8, pulse 71 to 79, respiratory rate 16 to 20. Cardiovascular S1, S2. Lungs show essentially clear. Hematologic negative Homans. Hematologic, she has actually 3+ to 4 anasarca type changes in her lower legs, which is slightly improving. ASSESSMENT: 1. Ureteral obstruction status post ureteral stent placement. 2. Interstitial nephritis. Continue with IV diuresis, steroid taper. have been replaced already. 3. Severe iron deficiency. She is on IV iron transfusions. Urine complement levels were seen. Hepatitis is negative. Urine eosinophiles negative. Await for renal physician recommendations. Possible discharge home later this week. MMODL / IJN: [id number] /
[2018-07-07 14:15] LABS: C-ANCA <1:20 Titer (<1:20); P-ANCA <1:20 Titer (<1:20)
[2018-07-07] MEDS: SODIUM CHLORIDE 0.9% 1,000 ML IV SCH (15:06)
[2018-07-07] MEDS: ASPIRIN 81 MG PO SCH (17:36)
[2018-07-07] MEDS: CHOLECALCIFEROL 1,000 UNIT TAB PO SCH (17:36)
[2018-07-07] MEDS: ARIPiprazole 2 MG TAB PO SCH (19:58)
[2018-07-08] MEDS: HYDROcodone/APAP 10-325MG 1 EACH TAB PO PRN ×2 (05:03→20:42)
[2018-07-08] MEDS: ONDANSETRON 4 MG/2 ML VIAL IVP PRN (05:04)
[2018-07-08] MEDS: LEVOTHYROXINE 50 MCG TAB PO SCH (05:04)
[2018-07-08] MEDS: FUROSEMIDE 100 MG in SODIUM CHLORIDE 0.9% 90 ML IV SCH ×2 (05:17→16:44)
[2018-07-08] MEDS: FAMOTIDINE 20 MG TAB PO SCH (07:40)
[2018-07-08] MEDS: predniSONE 20 MG TAB PO SCH (07:40)
[2018-07-08] MEDS: ESCITALOPRAM 20 MG TAB PO SCH (07:40)
[2018-07-08] MEDS: SODIUM BICARBONATE TAB 650 MG TAB PO SCH (07:41)
[2018-07-08 07:56] LABS: Anisocytosis Slight; Basophils % (A) 0 %; Eosinophils % (A) 0 %; HCT 31.7 % (34.0-46.0); Hypochromasia Moderate; Lymphocytes # (A) 0.9 k/uL (1.0-4.8); Lymphocytes % (A) 11 %; MCH 27.8 pg (25.0-35.0); MCHC 30.8 g/dL (31.0-37.0); MCV 90.3 fL (80.0-100.0); Mean Platelet Volume 7.6; Monocytes # (A) 0.5 k/uL (0-1.0); Monocytes % (A) 6 %; Neutrophils # (A) 6.8 k/uL (1.3-7.7); Neutrophils % (A) 82 %; Platelet Count 283 k/uL (150-450); RBC 3.51 m/uL (3.80-5.40); RDW 17.7 % (11.5-15.5); WBC 8.3 k/uL (3.8-10.6)
[2018-07-08 08:08] LABS: HGB 9.8 gm/dL (11.4-16.0)
[2018-07-08 08:28] LABS: Albumin 2.8 g/dL (3.5-5.0); Calcium 8.7 mg/dL (8.4-10.2); Magnesium 1.4 mg/dL (1.6-2.3); Potassium 3.9 mmol/L (3.5-5.1); Total Bilirubin 0.3 mg/dL (0.2-1.3); Total Protein 6.2 g/dL (6.3-8.2)
--- NOTE | 2018-07-08 11:05 | P.PN ---
Subjective Patient is seen in follow-up for acute kidney injury on chronic kidney disease. Patient has chronic kidney disease stage III with baseline creatinine near 1.3 secondary to nephrosclerosis. Renal function is improving. Creatinine 3.28 today. Patient presented with edema and over 40 pound weight gain over 2 weeks. She is currently maintained on Lasix drip - UO 7.7 L in last 24 hours. King catheter was inserted for strict I's and O's. Still quite edematous but improving. Hydronephrosis noted on ultrasound as well as CAT scan. She has bi lateral ureteral stents that were exchanged on July 04. Denies chest pain. Oral intake is fair. Vital signs are stable. General: The patient appeared well nourished and normally developed. HEENT: Head exam is unremarkable. Neck is without jugular venous distension. LUNGS: Breath sounds decreased. HEART: Rate and Rhythm are regular. First and second heart sounds normal. No murmurs, rubs or gallops. ABDOMEN: Abdominal exam reveals normal bowel sounds. Non-tender and non- distended. No evidence of peritonitis. EXTREMITITES: 2+ edema. Objective - Vital Signs Vital signs: Vital Signs Temp 97.7 F 07/08/18 08:00 Pulse 74 07/08/18 08:00 Resp 16 07/08/18 08:00 BP 119/62 07/08/18 08:00 Pulse Ox 95 07/08/18 08:00 Intake & Output 07/07/18 07/08/18 07/08/18 18:59 06:59 18:59 Intake Total 1080 373.000 Output Total 1700 6000 950 Balance -620 -5627.000 -950 Weight 89.5 kg Intake: Intake, IV Titration 173.000 Amount Furosemide 100 mg In 173.000 Sodium Chloride 0.9% 90 ml @ 10 MG/HR 10 mls/hr IV .Q10H [facility] Rx#: [id number] Oral 1080 200 Output: Urine 1700 6000 950 Uretheral (King) 3600 Other: Voiding Method Indwelling Catheter Indwelling Catheter Indwelling Catheter # Bowel Movements 1 - Labs CBC & Chem 7: 07/08/18 07:20 07/08/18 07:20 Labs: Abnormal Lab Results - Last 24 Hours (Table) 07/08/18 07/08/18 Range/Units 07:20 07:20 RBC 3.51 L (3.80-5.40) m/uL Hgb 9.8 L D (11.4-16.0) gm/dL Hct 31.7 L (34.0-46.0) % MCHC 30.8 L (31.0-37.0) g/dL RDW 17.7 H (11.5-15.5) % Lymphocytes # 0.9 L (1.0-4.8) k/uL BUN 77 H (7-17) mg/dL Creatinine 3.28 H (0.52-1.04) mg/dL Glucose 112 H (74-99) mg/dL Magnesium 1.4 L (1.6-2.3) mg/dL Alkaline Phosphatase 195 H (38-126) U/L Total Protein 6.2 L (6.3-8.2) g/dL Albumin 2.8 L (3.5-5.0) g/dL Assessment and Plan Plan: Assessment: 1. Acute kidney injury secondary to obstructive uropathy and possible AIN. Renal function better. Creatinine 3.28 today. No evidence of nephrotic syndrome - UPC 1.15. Last month's UA revealed no evidence of proteinuria. Urine eosinophils 2%. Rest of the serologies negative. 2. Bilateral hydronephrosis. Patient had bilateral ureteral stents exchanged on July 04. Urology following. 3. Metabolic acidosis secondary to acute kidney injury. Maintained on oral sodium bicarbonate. Resolved. 4. Volume overload. Echocardiogram revealed preserved ejection fraction. No evidence of nephrotic syndrome. 5. Anemia of chronic kidney disease. Severe iron deficiency noted. Status post 3 doses of IV iron. Maintained on Aranesp. 6. Hypomagnesemia secondary to diuresis. Plan: Maintain Lasix drip at 10 mL an hour. Discontinued Protonix. Now on Pepcid. Replace magnesium. 3 g IV today. Maintain prednisone for possible ALLERGIC interstitial nephritis. Prednisone was started on July 04. This will be tapered over the next 1-2 months outpatient. Repeat electrolytes in the morning. Patient will be at high risk for kidney biopsy due to atrophic left kidney as well as hydronephrosis bilaterally.
[2018-07-08] MEDS: MAGNESIUM SULFATE-D5W PMX 1 GM in DEXTROSE/WATER 1 100ML.BAG IVPB SCH ×3 (11:46→14:10)
[2018-07-08] MEDS: SODIUM CHLORIDE 0.9% 1,000 ML IV SCH (15:37)
[2018-07-08] MEDS: CHOLECALCIFEROL 1,000 UNIT TAB PO SCH (16:44)
[2018-07-08] MEDS: ASPIRIN 81 MG PO SCH (16:44)
[2018-07-08] MEDS: ARIPiprazole 2 MG TAB PO SCH (20:43)
--- NOTE | 2018-07-08 22:25 | PN ---
PROGRESS NOTE SUBJECTIVE: Vtfih[age]yglp-frdm-old white female. Metabolic acidosis is improved. Bicarb has been discontinued. Creatinine continues to improve. Baseline creatinine is 1.3. The creatinine has improved down to low 3s. Vital signs are stable. Afebrile. Hematology negative. She has lymphedema changes. Lungs are clear. Temperature 97.7, pulse 74, respiratory 16, blood pressure 119 over 60s, oxygen 95% on room air. Three plus edema. Hemoglobin is 9.8, up from 8. BUN is 77, creatinine 3.28, magnesium 1.4. ASSESSMENT: 1. Hypomagnesemia. 2. Anemia of chronic disease. 3. Acute kidney injury secondary to obstructive uropathy, possible AIN. Renal function is better. Creatinine is now down to 3.28. 4. Bilateral hydronephrosis. Ureteral stents placed. 5. Metabolic acidosis. 6. Volume overload. Patient is improving. Please see further orders. Patient to continue on Lasix drip. Replace magnesium. Prednisone is continued for possible allergic interstitial nephritis. Continue current treatments. MMODL / IJN: [id number] /
[2018-07-09] MEDS: FUROSEMIDE 100 MG in SODIUM CHLORIDE 0.9% 90 ML IV SCH ×2 (03:27→14:39)
[2018-07-09] MEDS: LEVOTHYROXINE 50 MCG TAB PO SCH (05:51)
[2018-07-09] MEDS: HYDROcodone/APAP 10-325MG 1 EACH TAB PO PRN ×2 (05:51→18:20)
[2018-07-09] MEDS: predniSONE 20 MG TAB PO SCH (07:56)
[2018-07-09] MEDS: FAMOTIDINE 20 MG TAB PO SCH (07:56)
[2018-07-09] MEDS: ESCITALOPRAM 20 MG TAB PO SCH (07:56)
[2018-07-09 09:17] LABS: Anisocytosis Slight; Basophils % (A) 0 %; Eosinophils % (A) 0 %; HCT 36.5 % (34.0-46.0); HGB 11.6 gm/dL (11.4-16.0); Hypochromasia Slight; Lymphocytes # (A) 1.1 k/uL (1.0-4.8); Lymphocytes % (A) 11 %; MCH 28.2 pg (25.0-35.0); MCHC 31.7 g/dL (31.0-37.0); MCV 88.8 fL (80.0-100.0); Mean Platelet Volume 7.6; Monocytes # (A) 0.6 k/uL (0-1.0); Monocytes % (A) 6 %; Neutrophils # (A) 7.6 k/uL (1.3-7.7); Neutrophils % (A) 81 %; Platelet Count 191 k/uL (150-450); RBC 4.11 m/uL (3.80-5.40); RDW 17.7 % (11.5-15.5); WBC 9.3 k/uL (3.8-10.6)
[2018-07-09 10:19] LABS: Albumin 3.5 g/dL (3.5-5.0); Calcium 8.7 mg/dL (8.4-10.2); Total Bilirubin 0.6 mg/dL (0.2-1.3); Total Protein 7.3 g/dL (6.3-8.2)
[2018-07-09 10:28] LABS: Potassium 4.1 mmol/L (3.5-5.1)
--- NOTE | 2018-07-09 12:56 | P.PN ---
Subjective Patient is seen in follow-up for acute kidney injury on chronic kidney disease. Patient has chronic kidney disease stage III with baseline creatinine near 1.3 secondary to nephrosclerosis. Renal function is improving. Creatinine 3.28 today. Patient presented with edema and over 40 pound weight gain over 2 weeks. She is currently maintained on Lasix drip - UO 6.4 L in last 24 hours. King catheter was inserted for strict I's and O's. Still quite edematous but improving. Hydronephrosis noted on ultrasound as well as CAT scan. She has bi lateral ureteral stents that were exchanged on July 04. Denies chest pain. Oral intake is fair. Renal function is improving. Vital signs are stable. General: The patient appeared well nourished and normally developed. HEENT: Head exam is unremarkable. Neck is without jugular venous distension. LUNGS: Breath sounds decreased. HEART: Rate and Rhythm are regular. First and second heart sounds normal. No murmurs, rubs or gallops. ABDOMEN: Abdominal exam reveals normal bowel sounds. Non-tender and non- distended. No evidence of peritonitis. EXTREMITITES: 2+ edema. Objective - Vital Signs Vital signs: Vital Signs Temp 97.8 F 07/09/18 07:13 Pulse 70 07/09/18 07:13 Resp 16 07/09/18 07:13 BP 112/66 07/09/18 07:13 Pulse Ox 92 L 07/09/18 07:13 Intake & Output 07/08/18 07/09/18 07/09/18 18:59 06:59 18:59 Intake Total 640 100 540 Output Total 3350 3100 Balance -2710 -3000 540 Weight 82.6 kg Intake: Intake, IV Titration 100 100 Amount Furosemide 100 mg In 100 100 Sodium Chloride 0.9% 90 ml @ 10 MG/HR 10 mls/hr IV .Q10H [facility] Rx#: [id number] Oral 540 540 Output: Urine 3350 3100 Uretheral (King) 3100 Other: Voiding Method Indwelling Catheter Indwelling Catheter Indwelling Catheter # Bowel Movements 1 - Labs CBC & Chem 7: 07/09/18 08:36 07/09/18 08:36 Labs: Abnormal Lab Results - Last 24 Hours (Table) 07/09/18 07/09/18 Range/Units 08:36 08:36 RDW 17.7 H (11.5-15.5) % BUN 84 H (7-17) mg/dL Creatinine 2.87 H (0.52-1.04) mg/dL Glucose 147 H (74-99) mg/dL AST 37 H (14-36) U/L Alkaline Phosphatase 219 H (38-126) U/L Assessment and Plan Plan: Assessment: 1. Acute kidney injury secondary to obstructive uropathy and possible AIN. Renal function better. Creatinine 2.87 today. No evidence of nephrotic syndrome - UPC 1.15. Last month's UA revealed no evidence of proteinuria. Urine eosinophils 2%. Rest of the serologies negative. 2. Bilateral hydronephrosis. Patient had bilateral ureteral stents exchanged on July 04. Urology following. 3. Metabolic acidosis secondary to acute kidney injury. Resolved. 4. Volume overload. Echocardiogram revealed preserved ejection fraction. No evidence of nephrotic syndrome. 5. Anemia of chronic kidney disease. Severe iron deficiency noted. Status post 3 doses of IV iron. Maintained on Aranesp. 6. Hypomagnesemia secondary to diuresis. . Plan: Maintain Lasix drip at 10 mL an hour. Discontinued Protonix. Now on Pepcid. Maintain prednisone for possible ALLERGIC interstitial nephritis. Prednisone was started on July 04. I will repeat UA and urine eosinophils. Repeat electrolytes in the morning. Patient will be at high risk for kidney biopsy due to atrophic left kidney as well as hydronephrosis bilaterally.
[2018-07-09 14:05] LABS: Appearance,Urine Turbid (Clear); Bacteria,Urine Many /hpf; Bilirubin,Urine Negative (Negative); Blood,Urine Large (Negative); Color,Urine Yellow; Glucose,Urine (UA) Negative (Negative); Ketones,Urine Negative (Negative); Leukocyte Esterase,Urine Large (Negative); Nitrite,Urine Negative (Negative); PH, Urine 5.5 (5.0-8.0); Protein,Urine 1+ (Negative); RBC,Urine >182 /hpf (0-5); Specific Gravity,Urine 1.016 (1.001-1.035); Urobilinogen,Urine <2.0 mg/dL (<2.0); WBC,Urine >182 /hpf (0-5)
[2018-07-09] MEDS: SODIUM CHLORIDE 0.9% 1,000 ML IV SCH (16:39)
[2018-07-09] MEDS: CHOLECALCIFEROL 1,000 UNIT TAB PO SCH (17:15)
[2018-07-09] MEDS: ASPIRIN 81 MG PO SCH (17:15)
[2018-07-09] MEDS: ARIPiprazole 2 MG TAB PO SCH (19:59)
[2018-07-10] MEDS: FUROSEMIDE 100 MG in SODIUM CHLORIDE 0.9% 90 ML IV SCH ×3 (00:12→20:04)
[2018-07-10] MEDS: LEVOTHYROXINE 50 MCG TAB PO SCH (05:06)
--- NOTE | 2018-07-10 07:27 | P.PN ---
Subjective Progress Note Date: 07/09/18 This is a 67-year-old female presented to the ER as advised by PCP with significant bilateral leg edema, approximate 40 pound weight gain in 2-1/2 weeks, shortness of breath with exertion and laying flat, acute on chronic renal failure in a patient who recently had renal stents replaced 2 weeks ago. Repo rts had nausea vomiting and diarrhea at home, diarrhea has subsided. This morning he had nausea with dry heaving, received Zofran. Reports incontinent of urine for the last 7-8 months. Denies chest pain. Denies history of CHF. Abdominal x-ray nonspecific, renal ultrasound reporting bilateral hy dronephrosis. EKG sinus rhythm. Echo pending. Creatinine 3.26 on admission up to 3.37. Hemoglobin 8.5, on admission, down to 7.6. Denies chest pain, palpitations. Complains of right-sided mid to lower quadrant abdominal pain that radiates to the back. Patient recently completed IV antibiotic therapy of Invanz for [id number]-ellpfujre E. coli UTI, with PICC line discontinued this past Saturday. States she has been dealing with recurrent bladder infections for over 1 year. On 06/11/2018 patient was 72.4 kg, now 92.53 on admission. Afebrile, WBC 4.4.systolic blood pressures 90s to 110s. 07/02/2018 Maintained on IV push Lasix, I&O inaccurate secondary to incontinence. Reweighed this afternoon on standing scale, 92.2 kg, 92.5 kg on admission. Echo reporting normal LV function, 55-60%. Magnesium 1.1, receiving supplements. CT of abdomen ordered by urology, pending. Creatinine worsening, 3.73. Significant bilateral lower extremity edema persists, mildly improved. Denies chest pain, palpitations or increased shortness of breath. 07/03/2018 maintained on diuretics as per nephrology. Renal function continues worsening up to 3.88. Inaccurate I& O secondary to incontinence. Bilateral lower extremity edema slowly improving. Abdomen increasing firmness. Complains of nausea. Denies chest pain, palpitations. No increasing shortness of breath except when laying flat, or with minimal exertion. Bilateral hydronephrosis reported on computed tomography scan with bilateral ureteral stents present. 07/04/2018 King catheter inserted yesterday for strict I&O's; diuresing well on Lasix IV push with 24-hour I&O reflecting a negative fluid balance, significant edema present-improving. Case discussed with urology yesterday afternoon, patient is scheduled for stent exchange today. Creatinine 3.85( 3.88 yesterday). Abdomen distended, firm. Complains of right abdominal quadrant tenderness extending to right flank -unchanged, mild increased shortness of breath. Currently wearing 2 L nasal cannula. maintaining O2 sats of flow 90s. Denies chest pain, palpitations. Afebrile, T-max 99, normal WBC. Urine culture negative. 07/09/2018 diuresing well, maintained on Lasix drip, with 24-hour I&O reflecting a negative fluid balance. Bilateral leg edema, significant, slowly improving. Orthopnea and exertional shortness of breath persists. Maintaining O2 sats in the 90s on room air. Renal function continues to improve, down to 2.87. Status post bilateral ureteral stents exchanged on 07/04/2018. Maintained on prednisone for potential ALLERGIC interstitial nephritis. Afebrile, previous Urine culture negative, current UA reporting large leukocytes, high WBCs, many bacteria. Objective - Vital Signs Vital signs: Vital Signs Temp 98.2 F 07/09/18 13:31 Pulse 136 H 07/09/18 13:31 Resp 16 07/09/18 13:31 BP 112/76 07/09/18 13:31 Pulse Ox 95 07/09/18 13:31 Intake & Output 07/08/18 07/09/18 07/09/18 18:59 06:59 18:59 Intake Total 526 317 9003 Output Total 3350 3100 1700 Balance -2710 -3000 20 Weight 82.6 kg Intake: Intake, IV Titration 100 100 100 Amount Furosemide 100 mg In 100 100 100 Sodium Chloride 0.9% 90 ml @ 10 MG/HR 10 mls/hr IV .Q10H [facility] Rx#: [id number] Oral 540 1620 Output: Urine 3350 3100 1700 Uretheral (King) 3100 Other: Voiding Method Indwelling Catheter Indwelling Catheter Indwelling Catheter # Bowel Movements 1 - Exam PHYSICAL EXAM: VITAL SIGNS: As above GENERAL: Sitting up in bed, no acute distress HEENT: Conjunctivae normal. eyes normal. Oral mucosa moist NECK: No JVD. No thyroid enlargement. No LNs CARDIOVASCULAR: S1, S2 muffled. No murmur RESPIRATION: Nonlabored, bilateral bases diminished No rhonchi or crackles. No wheezing. ABDOMEN: Softer, distended, nontender. No guarding. no masses palpable. Bowel sounds heard. LEGS: Slowly improving, softer , significant positive bilateral lower extremity edema, up to groin PSYCHIATRY: Alert and oriented -3, mood and affect normal. NERVOUS SYSTEM: Cranial N 2-12 grossly normal. Diffuse weakness No focal deficits Skin: no lesions, no rash - Labs CBC & Chem 7: 07/09/18 08:36 07/09/18 08:36 Labs: Abnormal Lab Results - Last 24 Hours (Table) 07/09/18 07/09/18 07/09/18 Range/Units 08:36 08:36 13:50 RDW 17.7 H (11.5-15.5) % BUN 84 H (7-17) mg/dL Creatinine 2.87 H (0.52-1.04) mg/dL Glucose 147 H (74-99) mg/dL AST 37 H (14-36) U/L Alkaline Phosphatase 219 H (38-126) U/L Urine Appearance Turbid H (Clear) Urine Protein 1+ H (Negative) Urine Blood Large H (Negative) Ur Leukocyte Esterase Large H (Negative) Urine RBC >182 H (0-5) /hpf Urine WBC >182 H (0-5) /hpf Urine WBC Clumps Many H (None) /hpf Urine Bacteria Many H (None) /hpf Assessment and Plan Assessment: -Fluid overload related to obstructive uropathy without evidence of nephrotic syndrome. Significant bilateral leg edema. Echo reporting normal LV function. -Acute on chronic renal failure, stage III. Acute secondary to obstructive uropathy, and diuresing. Chronic secondary to nephrosclerosis. Baseline 1.3 -Bilateral hydronephrosis in a patient with recent bilateral ureteral stent replacements. Status post bilateral ureteral stent exchange 07/04/2018. -Anemia of chronic disease, secondary to renal failure, iron deficiency. -Metabolic acidosis secondary to acute renal failure, resolved -Recurrent UTIs, recently treated for multidrug resistant E. coli UTI -History of nonalcoholic cirrhosis -Clotting disorder, not factor V -Hypertension -Depression -Melanoma, uterine cancer, Lung Ca, breast cancer -History of DVT -Hypomagnesemia, secondary to diuresing improving Plan: Continue on current medication regime , Pepcid ,monitoring and symptomatic treatment. Diuresing with Lasix drip as per nephrology. Strict I&O . Steroids maintained for potential ALLERGIC interstitial nephritis .patient high risk for kidney biopsy secondary to atrophic left kidney and bilateral hydronephrosis as per nephrology. Slowly improving. Close monitoring of renal function, electrolytes with repeat labs ordered for a.m. .Prognosis guarded given multiple complex medical issues. Further recommendations to follow. The impression and plan of care has been dictated as directed. : I performed a history and examination of this patient, discussed the same with the dictator. I agree with the dictator's note ,documented as a scribe. Any additional findings or plans will be noted. Time taken: 35 minutes
[2018-07-10] MEDS: predniSONE 20 MG TAB PO SCH (08:46)
[2018-07-10] MEDS: FAMOTIDINE 20 MG TAB PO SCH (08:46)
[2018-07-10] MEDS: ESCITALOPRAM 20 MG TAB PO SCH (08:46)
[2018-07-10] MEDS: HYDROcodone/APAP 10-325MG 1 EACH TAB PO PRN ×3 (09:14→22:47)
[2018-07-10 09:23] LABS: Anisocytosis Slight; Basophils % (A) 0 %; Eosinophils % (A) 0 %; HCT 38.4 % (34.0-46.0); HGB 11.7 gm/dL (11.4-16.0); Hypochromasia Moderate; Lymphocytes # (A) 0.7 k/uL (1.0-4.8); Lymphocytes % (A) 8 %; MCH 27.5 pg (25.0-35.0); MCHC 30.3 g/dL (31.0-37.0); MCV 90.7 fL (80.0-100.0); Mean Platelet Volume 7.7; Monocytes # (A) 0.5 k/uL (0-1.0); Monocytes % (A) 6 %; Neutrophils # (A) 7.9 k/uL (1.3-7.7); Neutrophils % (A) 85 %; Platelet Count 302 k/uL (150-450); RBC 4.24 m/uL (3.80-5.40); RDW 18.6 % (11.5-15.5); WBC 9.3 k/uL (3.8-10.6)
[2018-07-10 09:45] LABS: Albumin 3.7 g/dL (3.5-5.0); Calcium 9.1 mg/dL (8.4-10.2); Potassium 3.5 mmol/L (3.5-5.1); Total Bilirubin 0.6 mg/dL (0.2-1.3); Total Protein 7.7 g/dL (6.3-8.2)
[2018-07-10] MEDS ORDERED: POTASSIUM CHLORIDE ER 20 MEQ TAB.ER PO STA (13:39)
--- NOTE | 2018-07-10 13:40 | P.PN ---
Subjective Patient is seen in follow-up for acute kidney injury on chronic kidney disease. Patient has chronic kidney disease stage III with baseline creatinine near 1.3 secondary to nephrosclerosis. Renal function is improving. Creatinine 2.59 today. Patient presented with edema and over 40 pound weight gain over 2 weeks. She is currently maintained on Lasix drip - UO 4.9 L in last 24 hours. King catheter was inserted for strict I's and O's. Still quite edematous but improving. Hydronephrosis noted on ultrasound as well as CAT scan. She has bi lateral ureteral stents that were exchanged on July 04. Denies chest pain. Oral intake is fair. She is also maintained on prednisone for presumed ALLERGIC interstitial nephritis. Vital signs are stable. General: The patient appeared well nourished and normally developed. HEENT: Head exam is unremarkable. Neck is without jugular venous distension. LUNGS: Breath sounds decreased. HEART: Rate and Rhythm are regular. First and second heart sounds normal. No murmurs, rubs or gallops. ABDOMEN: Abdominal exam reveals normal bowel sounds. Non-tender and non- distended. No evidence of peritonitis. EXTREMITITES: 2+ edema. Objective - Vital Signs Vital signs: Vital Signs Temp 98.2 F 07/10/18 07:00 Pulse 69 07/10/18 07:00 Resp 16 07/10/18 07:00 BP 116/56 07/10/18 07:00 Pulse Ox 92 L 07/10/18 07:00 Intake & Output 07/09/18 07/10/18 07/10/18 18:59 06:59 18:59 Intake Total 2260 95.5 98.667 Output Total 3000 1900 800 Balance -740 -1804.5 -701.333 Weight 79.7 kg Intake: Intake, IV Titration 100 95.5 98.667 Amount Furosemide 100 mg In 100 95.5 98.667 Sodium Chloride 0.9% 90 ml @ 10 MG/HR 10 mls/hr IV .Q10H [facility] Rx#: [id number] Oral 2160 Output: Urine 3000 1900 800 Uretheral (King) 950 800 Other: Voiding Method Indwelling Catheter Indwelling Catheter Indwelling Catheter # Bowel Movements 4 - Labs CBC & Chem 7: 07/10/18 08:48 07/10/18 08:48 Labs: Abnormal Lab Results - Last 24 Hours (Table) 07/09/18 07/10/18 07/10/18 Range/Units 13:50 08:48 08:48 MCHC 30.3 L (31.0-37.0) g/dL RDW 18.6 H (11.5-15.5) % Neutrophils # 7.9 H (1.3-7.7) k/uL Lymphocytes # 0.7 L (1.0-4.8) k/uL Chloride 96 L (98-107) mmol/L Carbon Dioxide 35 H (22-30) mmol/L BUN 84 H (7-17) mg/dL Creatinine 2.59 H (0.52-1.04) mg/dL Glucose 112 H (74-99) mg/dL Alkaline Phosphatase 221 H (38-126) U/L Urine Appearance Turbid H (Clear) Urine Protein 1+ H (Negative) Urine Blood Large H (Negative) Ur Leukocyte Esterase Large H (Negative) Urine RBC >182 H (0-5) /hpf Urine WBC >182 H (0-5) /hpf Urine WBC Clumps Many H (None) /hpf Urine Bacteria Many H (None) /hpf Assessment and Plan Plan: Assessment: 1. Acute kidney injury secondary to obstructive uropathy and possible AIN. Renal function better. Creatinine 2.9 today. No evidence of nephrotic syndrome - UPC 1.15. Last month's UA revealed no evidence of proteinuria. Urine eosinophils 2% - repeat 0%. Rest of the serologies negative. 2. Bilateral hydronephrosis. Patient had bilateral ureteral stents exchanged on July 04. Urology following. 3. Metabolic acidosis secondary to acute kidney injury. Resolved. 4. Volume overload. Echocardiogram revealed preserved ejection fraction. No evidence of nephrotic syndrome. 5. Anemia of chronic kidney disease. Severe iron deficiency noted. Status post 3 doses of IV iron. Maintained on Aranesp. 6. Hypomagnesemia secondary to diuresis. Better. 7. Hypokalemia secondary to diuresis. Plan: Maintain Lasix drip at 10 mL an hour. Add metolazone 5 mg daily. Replace potassium. 40 mEq today. Discontinued Protonix. Now on Pepcid. Maintain prednisone for possible ALLERGIC interstitial nephritis. Prednisone was started on July 04. I will decrease the dose to 40 mg daily. Repeat electrolytes in the morning.
--- NOTE | 2018-07-10 14:30 | P.PN ---
Subjective Progress Note Date: 07/10/18 This is a 67-year-old female presented to the ER as advised by PCP with significant bilateral leg edema, approximate 40 pound weight gain in 2-1/2 weeks, shortness of breath with exertion and laying flat, acute on chronic renal failure in a patient who recently had renal stents replaced 2 weeks ago. Repo rts had nausea vomiting and diarrhea at home, diarrhea has subsided. This morning he had nausea with dry heaving, received Zofran. Reports incontinent of urine for the last 7-8 months. Denies chest pain. Denies history of CHF. Abdominal x-ray nonspecific, renal ultrasound reporting bilateral hy dronephrosis. EKG sinus rhythm. Echo pending. Creatinine 3.26 on admission up to 3.37. Hemoglobin 8.5, on admission, down to 7.6. Denies chest pain, palpitations. Complains of right-sided mid to lower quadrant abdominal pain that radiates to the back. Patient recently completed IV antibiotic therapy of Invanz for [id number] E. coli UTI, with PICC line discontinued this past Saturday. States she has been dealing with recurrent bladder infections for over 1 year. On 06/11/2018 patient was 72.4 kg, now 92.53 on admission. Afebrile, WBC 4.4.systolic blood pressures 90s to 110s. 07/02/2018 Maintained on IV push Lasix, I&O inaccurate secondary to incontinence. Reweighed this afternoon on standing scale, 92.2 kg, 92.5 kg on admission. Echo reporting normal LV function, 55-60%. Magnesium 1.1, receiving supplements. CT of abdomen ordered by urology, pending. Creatinine worsening, 3.73. Significant bilateral lower extremity edema persists, mildly improved. Denies chest pain, palpitations or increased shortness of breath. 07/03/2018 maintained on diuretics as per nephrology. Renal function continues worsening up to 3.88. Inaccurate I& O secondary to incontinence. Bilateral lower extremity edema slowly improving. Abdomen increasing firmness. Complains of nausea. Denies chest pain, palpitations. No increasing shortness of breath except when laying flat, or with minimal exertion. Bilateral hydronephrosis reported on computed tomography scan with bilateral ureteral stents present. 07/04/2018 King catheter inserted yesterday for strict I&O's; diuresing well on Lasix IV push with 24-hour I&O reflecting a negative fluid balance, significant edema present-improving. Case discussed with urology yesterday afternoon, patient is scheduled for stent exchange today. Creatinine 3.85( 3.88 yesterday). Abdomen distended, firm. Complains of right abdominal quadrant tenderness extending to right flank -unchanged, mild increased shortness of breath. Currently wearing 2 L nasal cannula. maintaining O2 sats of flow 90s. Denies chest pain, palpitations. Afebrile, T-max 99, normal WBC. Urine culture negative. 07/09/2018 diuresing well, maintained on Lasix drip, with 24-hour I&O reflecting a negative fluid balance. Bilateral leg edema, significant, slowly improving. Orthopnea and exertional shortness of breath persists. Maintaining O2 sats in the 90s on room air. Renal function continues to improve, down to 2.87. Status post bilateral ureteral stents exchanged on 07/04/2018. Maintained on prednisone for potential ALLERGIC interstitial nephritis. Afebrile, previous Urine culture negative, current UA reporting large leukocytes, high WBCs, many bacteria. 07/10/2018 significant bilateral leg edema continues to slowly improve .Diures ing well on Lasix drip with 24-hour I&O reflecting a negative fluid balance. Diamox added to med regime as per nephrology. Creatinine continues to improve, currently 2.59. Potassium 3.5, receiving supplementation. Afebrile. PT/OT. Up in chair for meals. Objective - Vital Signs Vital signs: Vital Signs Temp 98.2 F 07/10/18 07:00 Pulse 69 07/10/18 07:00 Resp 16 07/10/18 07:00 BP 116/56 07/10/18 07:00 Pulse Ox 92 L 07/10/18 07:00 Intake & Output 07/09/18 07/10/18 07/10/18 18:59 06:59 18:59 Intake Total 2260 95.5 98.667 Output Total 3000 1900 800 Balance -740 -1804.5 -701.333 Weight 79.7 kg Intake: Intake, IV Titration 100 95.5 98.667 Amount Furosemide 100 mg In 100 95.5 98.667 Sodium Chloride 0.9% 90 ml @ 10 MG/HR 10 mls/hr IV .Q10H [facility] Rx#: [id number] Oral 2160 Output: Urine 3000 1900 800 Uretheral (King) 950 800 Other: Voiding Method Indwelling Catheter Indwelling Catheter Indwelling Catheter # Bowel Movements 4 - Exam PHYSICAL EXAM: VITAL SIGNS: As above GENERAL: Sitting up in chair, no acute distress HEENT: Conjunctivae normal. eyes normal. Oral mucosa moist NECK: No JVD. No thyroid enlargement. No LNs CARDIOVASCULAR: S1, S2 muffled. No murmur RESPIRATION: Nonlabored, bilateral bases diminished No rhonchi or crackles. No wheezing. ABDOMEN: Softer, distended, nontender. No guarding. no masses palpable. Bowel sounds heard. LEGS: significant positive bilateral lower extremity edema, slowly improving PSYCHIATRY: Alert and oriented -3, mood and affect normal. NERVOUS SYSTEM: Cranial N 2-12 grossly normal. Diffuse weakness No focal defi cits - Labs CBC & Chem 7: 07/10/18 08:48 07/10/18 08:48 Labs: Abnormal Lab Results - Last 24 Hours (Table) 07/10/18 07/10/18 Range/Units 08:48 08:48 MCHC 30.3 L (31.0-37.0) g/dL RDW 18.6 H (11.5-15.5) % Neutrophils # 7.9 H (1.3-7.7) k/uL Lymphocytes # 0.7 L (1.0-4.8) k/uL Chloride 96 L (98-107) mmol/L Carbon Dioxide 35 H (22-30) mmol/L BUN 84 H (7-17) mg/dL Creatinine 2.59 H (0.52-1.04) mg/dL Glucose 112 H (74-99) mg/dL Alkaline Phosphatase 221 H (38-126) U/L Assessment and Plan Assessment: -Fluid overload related to obstructive uropathy without evidence of nephrotic syndrome. Significant bilateral leg edema. Echo reporting normal LV function. -Acute on chronic renal failure, stage III. Acute secondary to obstructive uropathy, and diuresing. Chronic secondary to nephrosclerosis. Baseline 1.3 -Bilateral hydronephrosis in a patient with recent bilateral ureteral stent replacements. Status post bilateral ureteral stent exchange 07/04/2018. -Anemia of chronic disease, secondary to renal failure, iron deficiency. -Metabolic acidosis secondary to acute renal failure, resolved -Recurrent UTIs, recently treated for multidrug resistant E. coli UTI -History of nonalcoholic cirrhosis -Clotting disorder, not factor V -Hypertension -Depression -Melanoma, uterine cancer, Lung Ca, breast cancer -History of DVT -Hypomagnesemia, secondary to diuresing improving Plan: Continue on current medication regime , Pepcid ,monitoring and symptomatic treatment. Diuresing as per nephrology; Diamox added in addition to Lasix drip. Strict I&O . Steroids maintained for potential ALLERGIC interstitial nephritis .Slowly improving. Close monitoring of renal function, electrolytes with repeat labs ordered for a.m. .Prognosis guarded given multiple complex medical issues. Further recommendations to follow. The impression and plan of care has been dictated as directed. : I performed a history and examination of this patient, discussed the same with the dictator. I agree with the dictator's note ,documented as a scribe. Any additional findings or plans will be noted. Time taken: 35 minutes
[2018-07-10] MEDS: CHOLECALCIFEROL 1,000 UNIT TAB PO SCH (16:23)
[2018-07-10] MEDS: DARBEPOETIN ALFA 40 MCG/0.4 ML SYRINGE SQ SCH (16:23)
[2018-07-10] MEDS: ASPIRIN 81 MG PO SCH (16:23)
[2018-07-10] MEDS: SODIUM CHLORIDE 0.9% 1,000 ML IV SCH (16:40)
[2018-07-10] MEDS: METOLAZONE 5 MG TAB PO SCH (17:27)
[2018-07-10] MEDS: ARIPiprazole 2 MG TAB PO SCH (20:04)
[2018-07-11] MEDS: FUROSEMIDE 100 MG in SODIUM CHLORIDE 0.9% 90 ML IV SCH ×2 (05:13→13:04)
[2018-07-11] MEDS: HYDROcodone/APAP 10-325MG 1 EACH TAB PO PRN ×3 (05:13→20:35)
[2018-07-11] MEDS: LEVOTHYROXINE 50 MCG TAB PO SCH (05:13)
[2018-07-11] MEDS: predniSONE 20 MG TAB PO SCH (08:28)
[2018-07-11] MEDS: ESCITALOPRAM 20 MG TAB PO SCH (08:29)
[2018-07-11] MEDS: FAMOTIDINE 20 MG TAB PO SCH (08:29)
[2018-07-11] MEDS: METOLAZONE 5 MG TAB PO SCH (08:30)
[2018-07-11 08:47] LABS: Anisocytosis Slight; Basophils % (A) 0 %; Eosinophils % (A) 0 %; HCT 31.6 % (34.0-46.0); Hypochromasia Slight; Lymphocytes # (A) 0.4 k/uL (1.0-4.8); Lymphocytes % (A) 4 %; MCH 28.3 pg (25.0-35.0); MCHC 31.4 g/dL (31.0-37.0); Mean Platelet Volume 7.8; Monocytes # (A) 0.4 k/uL (0-1.0); Monocytes % (A) 4 %; Neutrophils # (A) 10.2 k/uL (1.3-7.7); Neutrophils % (A) 92 %; Platelet Count 266 k/uL (150-450); RBC 3.52 m/uL (3.80-5.40); RDW 18.4 % (11.5-15.5); WBC 11.2 k/uL (3.8-10.6)
[2018-07-11 08:50] LABS: HGB 9.9 gm/dL (11.4-16.0)
[2018-07-11] MEDS: ONDANSETRON 4 MG/2 ML VIAL IVP PRN ×2 (08:50→13:51)
[2018-07-11 09:00] LABS: Albumin 3.1 g/dL (3.5-5.0); Calcium 8.6 mg/dL (8.4-10.2); Magnesium 1.6 mg/dL (1.6-2.3); Potassium 3.8 mmol/L (3.5-5.1); Total Bilirubin 0.4 mg/dL (0.2-1.3); Total Protein 6.6 g/dL (6.3-8.2)
[2018-07-11] MEDS: SODIUM CHLORIDE 0.9% 1,000 ML IV SCH (13:51)
[2018-07-11] MEDS: SALT AND SODA MOUTHWASH 1,000 ML PO SCH ×3 (13:51→20:34)
[2018-07-11] MEDS: CLOTRIMAZOLE TROCHE 10 MG TROCHE MUCOUS MEM SCH ×3 (13:52→20:34)
--- NOTE | 2018-07-11 14:26 | P.PN ---
Subjective Progress Note Date: 07/11/18 This is a 67-year-old female presented to the ER as advised by PCP with significant bilateral leg edema, approximate 40 pound weight gain in 2-1/2 weeks, shortness of breath with exertion and laying flat, acute on chronic renal failure in a patient who recently had renal stents replaced 2 weeks ago. Repo rts had nausea vomiting and diarrhea at home, diarrhea has subsided. This morning he had nausea with dry heaving, received Zofran. Reports incontinent of urine for the last 7-8 months. Denies chest pain. Denies history of CHF. Abdominal x-ray nonspecific, renal ultrasound reporting bilateral hy dronephrosis. EKG sinus rhythm. Echo pending. Creatinine 3.26 on admission up to 3.37. Hemoglobin 8.5, on admission, down to 7.6. Denies chest pain, palpitations. Complains of right-sided mid to lower quadrant abdominal pain that radiates to the back. Patient recently completed IV antibiotic therapy of Invanz for [id number] E. coli UTI, with PICC line discontinued this past Saturday. States she has been dealing with recurrent bladder infections for over 1 year. On 06/11/2018 patient was 72.4 kg, now 92.53 on admission. Afebrile, WBC 4.4.systolic blood pressures 90s to 110s. 07/02/2018 Maintained on IV push Lasix, I&O inaccurate secondary to incontinence. Reweighed this afternoon on standing scale, 92.2 kg, 92.5 kg on admission. Echo reporting normal LV function, 55-60%. Magnesium 1.1, receiving supplements. CT of abdomen ordered by urology, pending. Creatinine worsening, 3.73. Significant bilateral lower extremity edema persists, mildly improved. Denies chest pain, palpitations or increased shortness of breath. 07/03/2018 maintained on diuretics as per nephrology. Renal function continues worsening up to 3.88. Inaccurate I& O secondary to incontinence. Bilateral lower extremity edema slowly improving. Abdomen increasing firmness. Complains of nausea. Denies chest pain, palpitations. No increasing shortness of breath except when laying flat, or with minimal exertion. Bilateral hydronephrosis reported on computed tomography scan with bilateral ureteral stents present. 07/04/2018 King catheter inserted yesterday for strict I&O's; diuresing well on Lasix IV push with 24-hour I&O reflecting a negative fluid balance, significant edema present-improving. Case discussed with urology yesterday afternoon, patient is scheduled for stent exchange today. Creatinine 3.85( 3.88 yesterday). Abdomen distended, firm. Complains of right abdominal quadrant tenderness extending to right flank -unchanged, mild increased shortness of breath. Currently wearing 2 L nasal cannula. maintaining O2 sats of flow 90s. Denies chest pain, palpitations. Afebrile, T-max 99, normal WBC. Urine culture negative. 07/09/2018 diuresing well, maintained on Lasix drip, with 24-hour I&O reflecting a negative fluid balance. Bilateral leg edema, significant, slowly improving. Orthopnea and exertional shortness of breath persists. Maintaining O2 sats in the 90s on room air. Renal function continues to improve, down to 2.87. Status post bilateral ureteral stents exchanged on 07/04/2018. Maintained on prednisone for potential ALLERGIC interstitial nephritis. Afebrile, previous Urine culture negative, current UA reporting large leukocytes, high WBCs, many bacteria. 07/10/2018 significant bilateral leg edema continues to slowly improve .Diures ing well on Lasix drip with 24-hour I&O reflecting a negative fluid balance. Diamox added to med regime as per nephrology. Creatinine continues to improve, currently 2.59. Potassium 3.5, receiving supplementation. Afebrile. PT/OT. Up in chair for meals. 07/11/2018 continues on Lasix drip, BUN up to 93, creatinine down to 2.39. Had a rough night, started feeling increased malaise,fatigue after dinner last night. Afebrile. This morning increased nausea, no emesis, diarrhea 4 episodes after breakfast. Denies cough. No chest pain, no palpitations no increased shortness of breath. Objective - Vital Signs Vital signs: Vital Signs Temp 97.9 F 07/11/18 07:24 Pulse 69 07/11/18 07:24 Resp 15 07/11/18 00:58 BP 107/60 07/11/18 07:24 Pulse Ox 97 07/11/18 07:24 Intake & Output 07/10/18 07/11/18 07/11/18 18:59 06:59 18:59 Intake Total 98.667 191.5 Output Total 800 2625 Balance -701.333 -2433.5 Weight 76.9 kg Intake: Intake, IV Titration 98.667 191.5 Amount Furosemide 100 mg In 98.667 191.5 Sodium Chloride 0.9% 90 ml @ 10 MG/HR 10 mls/hr IV .Q10H [facility] Rx#: [id number] Output: Urine 800 2625 Uretheral (King) 800 1100 Other: Voiding Method Indwelling Catheter Indwelling Catheter Indwelling Catheter - Exam PHYSICAL EXAM: VITAL SIGNS: As above GENERAL: Sitting up in chair, no acute distress, tired appearing HEENT: Conjunctivae normal. eyes normal. Oral mucosa moist NECK: No JVD. No thyroid enlargement. No LNs CARDIOVASCULAR: S1, S2 regular, No murmur RESPIRATION: Nonlabored, bilateral bases diminished No rhonchi ,crackles or wheezing. ABDOMEN: Softer, distended, nontender. No guarding. no masses palpable. Bowel sounds heard. LEGS: significant positive bilateral lower extremity edema, improving PSYCHIATRY: Alert and oriented -3, mood and affect normal. NERVOUS SYSTEM: Cranial N 2-12 grossly normal. Diffuse weakness No focal deficits - Labs CBC & Chem 7: 07/11/18 07:55 07/11/18 07:55 Labs: Abnormal Lab Results - Last 24 Hours (Table) 07/11/18 07/11/18 Range/Units 07:55 07:55 WBC 11.2 H (3.8-10.6) k/uL RBC 3.52 L (3.80-5.40) m/uL Hgb 9.9 L D (11.4-16.0) gm/dL Hct 31.6 L (34.0-46.0) % RDW 18.4 H (11.5-15.5) % Neutrophils # 10.2 H (1.3-7.7) k/uL Lymphocytes # 0.4 L (1.0-4.8) k/uL Chloride 91 L (98-107) mmol/L Carbon Dioxide 39 H (22-30) mmol/L BUN 93 H (7-17) mg/dL Creatinine 2.39 H (0.52-1.04) mg/dL Glucose 116 H (74-99) mg/dL Alkaline Phosphatase 192 H (38-126) U/L Albumin 3.1 L (3.5-5.0) g/dL Microbiology - Last 24 Hours (Table) 07/10/18 09:00 Urine Culture - Preliminary Urine,Catheterized Assessment and Plan Assessment: -Fluid overload related to obstructive uropathy without evidence of nephrotic syndrome. Significant bilateral leg edema. Echo reporting normal LV function. -Acute on chronic renal failure, stage III. Acute secondary to obstructive uropathy, and diuresing. Chronic secondary to nephrosclerosis. Baseline 1.3 -Bilateral hydronephrosis in a patient with recent bilateral ureteral stent replacements. Status post bilateral ureteral stent exchange 07/04/2018. -Anemia of chronic disease, secondary to renal failure, iron deficiency. -Metabolic acidosis secondary to acute renal failure, resolved -Recurrent UTIs, recently treated for multidrug resistant E. coli UTI -History of nonalcoholic cirrhosis -Clotting disorder, not factor V -Hypertension -Depression -Melanoma, uterine cancer, Lung Ca, breast cancer -History of DVT -Hypomagnesemia, secondary to diuresing improving -Diarrhea, associated with malaise, fatigue; ruling out C. difficile colitis as well as influenza Plan: Continue on current medication regime , Pepcid ,monitoring and symptomatic treatment. Patient having multiple stools this morning, culture ordered to rule out C. diff .influenza screen ordered .Diuresing and steroids as per nephrology.Close monitoring of renal function, electrolytes with repeat labs ordered for a.m. Prognosis guarded given multiple complex medical issues. The impression and plan of care has been dictated as directed. : I performed a history and examination of this patient, discussed the same with the dictator. I agree with the dictator's note ,documented as a scribe. Any additional findings or plans will be noted. Time taken: 35 minutes
--- NOTE | 2018-07-11 14:41 | P.PN ---
Subjective Progress Note Date: 07/11/18 Principal diagnosis: Anemia, iron deficiency and chronic kidney disease In follow-up today patient is complaining of nausea, she has vomited a few times, she denies nosebleed, hematemesis, coffee-ground emesis, chest pain, hemoptysis, abdominal pain, hematuria, she noted a dark stool, no abdominal pain or cramping no bloody stool. Objective - Vital Signs Vital signs: Vital Signs Temp 97.9 F 07/11/18 07:24 Pulse 69 07/11/18 07:24 Resp 15 07/11/18 00:58 BP 107/60 07/11/18 07:24 Pulse Ox 97 07/11/18 07:24 Intake & Output 07/10/18 07/11/18 07/11/18 18:59 06:59 18:59 Intake Total 98.667 191.5 78.5 Output Total 800 2625 1400 Balance -701.333 -2433.5 -1321.5 Weight 76.9 kg Intake: Intake, IV Titration 98.667 191.5 78.5 Amount Furosemide 100 mg In 98.667 191.5 78.5 Sodium Chloride 0.9% 90 ml @ 10 MG/HR 10 mls/hr IV .Q10H [facility] Rx#: [id number] Output: Urine 800 2625 1400 Uretheral (King) 800 1100 Other: Voiding Method Indwelling Catheter Indwelling Catheter Indwelling Catheter - Constitutional General appearance: Present: average body habitus, cooperative, no acute distress - EENT Eyes: Present: anicteric sclerae, EOMI ENT: Present: hearing grossly normal, thrush - Neck Neck: Absent: lymphadenopathy, stridor - Respiratory Respiratory: bilateral: diminished - Cardiovascular Rhythm: regular Heart sounds: normal: S1, S2 - Peripheral edema leg Peripheral Edema: bilateral: None - Gastrointestinal General gastrointestinal: Present: normal bowel sounds, soft - Neurologic Neurologic: Present: CNII-XII intact - Musculoskeletal Musculoskeletal: Present: strength equal bilaterally - Psychiatric Psychiatric: Present: A&O x's 3, appropriate affect, intact judgment & insight - Allied health notes Allied health notes reviewed: nursing - Labs CBC & Chem 7: 07/11/18 07:55 07/11/18 07:55 Labs: Abnormal Lab Results - Last 24 Hours (Table) 07/11/18 07/11/18 Range/Units 07:55 07:55 WBC 11.2 H (3.8-10.6) k/uL RBC 3.52 L (3.80-5.40) m/uL Hgb 9.9 L D (11.4-16.0) gm/dL Hct 31.6 L (34.0-46.0) % RDW 18.4 H (11.5-15.5) % Neutrophils # 10.2 H (1.3-7.7) k/uL Lymphocytes # 0.4 L (1.0-4.8) k/uL Chloride 91 L (98-107) mmol/L Carbon Dioxide 39 H (22-30) mmol/L BUN 93 H (7-17) mg/dL Creatinine 2.39 H (0.52-1.04) mg/dL Glucose 116 H (74-99) mg/dL Alkaline Phosphatase 192 H (38-126) U/L Albumin 3.1 L (3.5-5.0) g/dL Microbiology - Last 24 Hours (Table) 07/10/18 09:00 Urine Culture - Preliminary Urine,Catheterized Assessment and Plan (1) Iron deficiency anemia Narrative/Plan: Patient has received 4 doses of parenteral iron. She is now on oral iron. Patient is also been started on Aranesp for her chronic kidney disease. Patient's hemoglobin was up in the 11 range for the last 2 days and that has come back down into the high 9 range-this was prior baseline. No gross evidence of bleeding other than a stated black stool. Occult has been ordered. CBC in the a.m. Current Visit: Yes Status: Chronic Priority: Medium Code(s): D50.9 - IRON DEFICIENCY ANEMIA, UNSPECIFIED SNOMED Code(s): 07571451 (2) Anemia in chronic kidney disease Narrative/Plan: Aranesp has been initiated by nephrology Current Visit: Yes Status: Chronic Priority: Medium Code(s): N18.9 - CHRONIC KIDNEY DISEASE, UNSPECIFIED; D63.1 - ANEMIA IN CHRONIC KIDNEY DISEASE SNOMED Code(s): 281103125 (3) Thrush, oral Narrative/Plan: Clotrimazole gloria, salt and soda to rinse the mouth Current Visit: Yes Status: Acute Priority: High Code(s): B37.0 - CANDIDAL STOMATITIS SNOMED Code(s): 74058527 Plan: Because of iron deficiency gastroenterology workup is recommended. Patient has seen Dr. Colby in the past. She last had a colonoscopy in 2014, she does not remember if she's had an EGD. Would recommend follow-up in the outpatient setting to reestablish with Dr. Colby to see if and when endoscopies are most appropriate in her situation.
[2018-07-11] MEDS: ASPIRIN 81 MG PO SCH (17:20)
[2018-07-11] MEDS: CHOLECALCIFEROL 1,000 UNIT TAB PO SCH (17:21)
[2018-07-11] MEDS: ARIPiprazole 2 MG TAB PO SCH (20:34)
--- NOTE | 2018-07-11 21:30 | PN ---
PROGRESS NOTE Patient is seen for followup for acute kidney injury. She is currently being treated for volume overload and is maintained on Lasix drip. She has had good urine output with significant decrease in weight from 79.7 kg to 76.9 kg. Renal function is also improved. Overall, patient states she is feeling better. PHYSICAL EXAMINATION: VITAL SIGNS: This morning, blood pressure was 107/60, heart rate 80 per minute. She is afebrile. CARDIOVASCULAR: Examination of the heart S1, S2. LUNGS: Examination lungs bilateral breath sounds are heard. ABDOMEN is soft, nontender. EXTREMITIES: Examination lower extremities shows edema 2+ bilaterally. [employer] exam is grossly intact. Patient is moving all 4 extremities. LABS: Show sodium 140, potassium 3.9, chloride 91, BUN 93, serum creatinine 2.39, hemoglobin 9.9 g/dL. ASSESSMENT: 1. Acute kidney injury, cardiorenal, currently improving. Continue with the Lasix drip for now. 2. Volume overload, significantly improved. The patient remains with quite a bit of edema. We will continue with the Lasix drip. 3. Metabolic acidosis associated with renal failure, now improved. 4. Hypokalemia secondary to diuretics. 5. History of bilateral hydronephrosis with previous history of bilateral ureteral stents being followed by Urology. PLAN: Continue with the Lasix drip and Zaroxolyn. Repeat labs in a.m. MMODL / IJN: [id number] /
[2018-07-12] MEDS: CLOTRIMAZOLE TROCHE 10 MG TROCHE MUCOUS MEM SCH ×6 (00:18→23:43)
[2018-07-12] MEDS: FUROSEMIDE 100 MG in SODIUM CHLORIDE 0.9% 90 ML IV SCH ×2 (00:18→11:35)
[2018-07-12] MEDS: SALT AND SODA MOUTHWASH 1,000 ML PO SCH ×5 (00:19→23:31)
[2018-07-12] MEDS: HYDROcodone/APAP 10-325MG 1 EACH TAB PO PRN ×3 (05:07→20:34)
[2018-07-12] MEDS: LEVOTHYROXINE 50 MCG TAB PO SCH (05:08)
[2018-07-12 08:00] LABS: Anisocytosis Slight; Basophils % (A) 0 %; Eosinophils % (A) 0 %; HCT 32.2 % (34.0-46.0); HGB 9.7 gm/dL (11.4-16.0); Hypochromasia Slight; Lymphocytes # (A) 0.7 k/uL (1.0-4.8); Lymphocytes % (A) 10 %; MCH 27.3 pg (25.0-35.0); MCHC 30.2 g/dL (31.0-37.0); MCV 90.3 fL (80.0-100.0); Mean Platelet Volume 7.8; Monocytes # (A) 0.6 k/uL (0-1.0); Monocytes % (A) 8 %; Neutrophils # (A) 6.3 k/uL (1.3-7.7); Neutrophils % (A) 81 %; Platelet Count 227 k/uL (150-450); RBC 3.56 m/uL (3.80-5.40); RDW 18.2 % (11.5-15.5); WBC 7.7 k/uL (3.8-10.6)
[2018-07-12 08:13] LABS: Calcium 8.4 mg/dL (8.4-10.2); Total Bilirubin 0.4 mg/dL (0.2-1.3); Total Protein 6.3 g/dL (6.3-8.2)
[2018-07-12] MEDS: METOLAZONE 5 MG TAB PO SCH (10:11)
[2018-07-12] MEDS: FAMOTIDINE 20 MG TAB PO SCH (10:11)
[2018-07-12] MEDS: predniSONE 20 MG TAB PO SCH (10:11)
[2018-07-12] MEDS: ESCITALOPRAM 20 MG TAB PO SCH (10:11)
--- NOTE | 2018-07-12 12:35 | P.PN ---
Subjective Progress Note Date: 07/12/18 Seen and examined for the follow-up of acute kidney injury. Creatinine slowly creeping. Currently on Lasix drip. No nausea vomiting diarrhea. Tolerating diet. 4 L of urine output in the last 24 hours. Objective - Vital Signs Vital signs: Vital Signs Temp 97.9 F 07/12/18 07:00 Pulse 70 07/12/18 07:00 Resp 16 07/12/18 07:00 BP 124/61 07/12/18 07:00 Pulse Ox 97 07/12/18 07:00 Intake & Output 07/11/18 07/12/18 07/12/18 18:59 06:59 18:59 Intake Total 78.5 540 100 Output Total 1400 2600 1000 Balance -1321.5 -0 -900 Weight 73.3 kg 73.3 kg Intake: Intake, IV Titration 78.5 300 100 Amount Furosemide 100 mg In 78.5 100 100 Sodium Chloride 0.9% 90 ml @ 10 MG/HR 10 mls/hr IV .Q10H [facility] Rx#: [id number] Sodium Chloride 0.9% 1, 200 000 ml @ 20 mls/hr IV . Q24H [facility] Rx#:[id number] Oral 240 Output: Urine 1400 2600 1000 Uretheral (King) 2600 1000 Other: Voiding Method Indwelling Catheter Indwelling Catheter Indwelling Catheter - Exam No acute distress Lying in bed S1-S2 heard King catheter Edema better. - Labs CBC & Chem 7: 07/12/18 07:13 07/12/18 07:13 Labs: Abnormal Lab Results - Last 24 Hours (Table) 07/11/18 07/12/18 07/12/18 Range/Units 13:47 07:13 07:13 RBC 3.56 L (3.80-5.40) m/uL Hgb 9.7 L (11.4-16.0) gm/dL Hct 32.2 L (34.0-46.0) % MCHC 30.2 L (31.0-37.0) g/dL RDW 18.2 H (11.5-15.5) % Lymphocytes # 0.7 L (1.0-4.8) k/uL Chloride 86 L (98-107) mmol/L Carbon Dioxide 44 H* (22-30) mmol/L BUN 110 H* (7-17) mg/dL Creatinine 2.60 H (0.52-1.04) mg/dL Glucose 105 H (74-99) mg/dL Alkaline Phosphatase 166 H (38-126) U/L Albumin 3.0 L (3.5-5.0) g/dL Stool Occult Blood Positive H (Negative) Microbiology - Last 24 Hours (Table) 07/10/18 09:00 Urine Culture - Final Urine,Catheterized Enterobacter cloacae 07/11/18 10:35 Urine Culture - Preliminary Urine,Catheterized Assessment and Plan Assessment: #1 acute kidney injury secondary to obstructive uropathy. Concern for AIN on steroids. Creeping creatinine suspect overdiuresis. #2 CKD3 secondary to recurrent acute kidney injury and obstruction with a baseline creatinine of 1.3 MG per DL #3 edema better #4 metabolic alkalosis secondary to over diuresis #5 anemia with on a kidney disease Plan: #1 stop Lasix drip and metolazone. Add torsemide 40 mg by mouth daily from tomorrow. #2 monitor renal function closely. #3 on prednisone with a concern for AIN #4 appreciate urology input #5 add acetazolamide if bicarb is more than 40 and also check ABG by tomorrow
[2018-07-12] MEDS: SODIUM CHLORIDE 0.9% 1,000 ML IV SCH (14:21)
[2018-07-12] MEDS: CHOLECALCIFEROL 1,000 UNIT TAB PO SCH (17:15)
[2018-07-12] MEDS: ASPIRIN 81 MG PO SCH (17:15)
[2018-07-12] MEDS ORDERED: HYDROmorphone 0.5 MG/0.5 ML SYRINGE IM PRN (17:27)
[2018-07-12] MEDS: ARIPiprazole 2 MG TAB PO SCH (20:34)
--- NOTE | 2018-07-12 23:15 | PN ---
PROGRESS NOTE SUBJECTIVE: White female, had a little bit of GI bleeding. Waiting for Hematology consult, GI consult as Hemoccult-positive stool. Hemoglobin today is 9.7. Continues to lose large amounts of weight since admission. Her creatinine is 2.60 with a BUN of 110, glucose is mid 100s to low 100s. PHYSICAL: Cardiovascular S1, S2. Lungs clear. GI soft. ASSESSMENT: 1. Acute tubular necrosis with obstructive renal disease, status post left ureter catheterization with stent placement bilaterally. Remains on steroids for interstitial nephritis. Blood pressure remains good. Continues to lose 7 pounds a day. This swelling in her legs is much better. 2. Urinary tract infection. Continue antibiotics. 3. Anemia of chronic disease. Stop Lasix drip and metolazone and torsemide 40 mg a day ay tomorrow. Continue prednisone. The patient is improving. Possible discharge home in 2-3 days. MMODL / IJN: [id number] /
[2018-07-12] MEDS: HYDROmorphone 0.5 MG/0.5 ML SYRINGE IVP PRN (23:43)
[2018-07-12] MEDS: MIDODRINE 5 MG TAB PO PRN (23:47)
[2018-07-13] MEDS: SALT AND SODA MOUTHWASH 1,000 ML PO SCH ×5 (03:08→19:47)
[2018-07-13] MEDS: CLOTRIMAZOLE TROCHE 10 MG TROCHE MUCOUS MEM SCH ×4 (06:06→19:47)
[2018-07-13] MEDS: HYDROcodone/APAP 10-325MG 1 EACH TAB PO PRN ×2 (06:07→11:28)
[2018-07-13] MEDS: LEVOTHYROXINE 50 MCG TAB PO SCH (06:10)
[2018-07-13 07:55] LABS: Albumin 3.4 g/dL (3.5-5.0); Calcium 8.5 mg/dL (8.4-10.2); Magnesium 1.6 mg/dL (1.6-2.3); Potassium 3.9 mmol/L (3.5-5.1); Total Bilirubin 0.6 mg/dL (0.2-1.3); Total Protein 6.9 g/dL (6.3-8.2)
[2018-07-13 08:19] LABS: Anisocytosis Slight; Basophils % (A) 0 %; Eosinophils % (A) 0 %; HCT 34.9 % (34.0-46.0); Hypochromasia Slight; Lymphocytes # (A) 1.1 k/uL (1.0-4.8); Lymphocytes % (A) 10 %; MCH 28.3 pg (25.0-35.0); MCHC 31.4 g/dL (31.0-37.0); MCV 90.2 fL (80.0-100.0); Mean Platelet Volume 8.4; Monocytes # (A) 0.6 k/uL (0-1.0); Monocytes % (A) 5 %; Neutrophils # (A) 8.7 k/uL (1.3-7.7); Neutrophils % (A) 84 %; Platelet Count 230 k/uL (150-450); RBC 3.87 m/uL (3.80-5.40); RDW 18.2 % (11.5-15.5); WBC 10.4 k/uL (3.8-10.6)
[2018-07-13] MEDS: HYDROmorphone 0.5 MG/0.5 ML SYRINGE IVP PRN ×2 (08:28→19:47)
[2018-07-13] MEDS: ESCITALOPRAM 20 MG TAB PO SCH (08:29)
[2018-07-13] MEDS: TORSEMIDE 20 MG TAB PO SCH (08:29)
[2018-07-13] MEDS: predniSONE 20 MG TAB PO SCH (08:34)
[2018-07-13] MEDS: FAMOTIDINE 20 MG TAB PO SCH (08:34)
--- NOTE | 2018-07-13 10:38 | P.PN ---
Subjective Progress Note Date: 07/13/18 Seen and examined for the follow-up of acute kidney injury. Creatinine better today after discontinuing Lasix drip. No nausea vomiting diarrhea. 4 L of urine in the last 24 hours, with a net negative of 2800 ML's.. Objective - Vital Signs Vital signs: Vital Signs Temp 97.9 F 07/13/18 07:00 Pulse 67 07/13/18 07:00 Resp 16 07/13/18 07:00 BP 111/68 07/13/18 07:00 Pulse Ox 91 L 07/13/18 07:00 Intake & Output 07/12/18 07/13/18 07/13/18 18:59 06:59 18:59 Intake Total 880 250 Output Total 1902019 Balance -1020 -1770 Weight 73.3 kg 72.5 kg Intake: Intake, IV Titration 340 Amount Furosemide 100 mg In 100 Sodium Chloride 0.9% 90 ml @ 10 MG/HR 10 mls/hr IV .Q10H [facility] Rx#: [id number] Sodium Chloride 0.9% 1, 240 000 ml @ 20 mls/hr IV . Q24H [facility] Rx#:[id number] Oral 540 250 Output: Urine 1899 2019 Uretheral (King) 1000 Other: Voiding Method Indwelling Catheter Indwelling Catheter Indwelling Catheter - Exam No acute distress Lying in bed S1-S2 heard King catheter Edema better. - Labs CBC & Chem 7: 07/13/18 06:36 07/13/18 06:36 Labs: Abnormal Lab Results - Last 24 Hours (Table) 07/13/18 07/13/18 Range/Units 06:36 06:36 Hgb 11.0 L (11.4-16.0) gm/dL RDW 18.2 H (11.5-15.5) % Neutrophils # 8.7 H (1.3-7.7) k/uL Chloride 86 L (98-107) mmol/L Carbon Dioxide 43 H* (22-30) mmol/L BUN 114 H* (7-17) mg/dL Creatinine 2.37 H (0.52-1.04) mg/dL AST 38 H (14-36) U/L Alkaline Phosphatase 176 H (38-126) U/L Albumin 3.4 L (3.5-5.0) g/dL Microbiology - Last 24 Hours (Table) 07/11/18 10:35 Urine Culture - Preliminary Urine,Catheterized Gram Neg Bacilli 07/10/18 09:00 Urine Culture - Final Urine,Catheterized Enterobacter cloacae Assessment and Plan Assessment: #1 acute kidney injury secondary to obstructive uropathy. Concern for AIN on steroids. #2 CKD3 secondary to recurrent acute kidney injury and obstruction with a b aseline creatinine of 1.3 MG per DL #3 edema better #4 metabolic alkalosis secondary to over diuresis #5 anemia with on a kidney disease #6 proteinuria 1 g on urine protein creatinine ratio Plan: #1 Lasix drip and metolazone was stopped yesterday. Started on torsemide 40 mg by mouth daily. Add low-dose metolazone by tomorrow . #2 monitor renal function closely. #3 on prednisone with a concern for AIN #4 appreciate urology input #5 add acetazolamide if bicarb is more than 40 and also check ABG, based on tomorrow's labs.
--- NOTE | 2018-07-13 11:17 | CONS ---
CONSULTATION REQUESTING PHYSICIAN: Dr. Collado. REASON FOR CONSULTATION: Acute upper gastrointestinal bleed. HISTORY OF PRESENT ILLNESS: The patient is a 67-year-old pleasant white female who was admitted to the hospital 12 days ago with acute kidney injury/recurrent urinary tract infection. She was diagnosed with hydronephrosis in the past, underwent ureteral stent placement by Dr. Contreras. She was also diagnosed with acute interstitial nephritis and presently being treated with prednisone because of worsening kidney parameters. Last bilateral ureteral stent exchange about a week ago. We were consulted because of acute upper gastrointestinal bleed. The patient states that she was doing well. However, yesterday she developed severe intense nausea and had 4 episodes of coffee-grounds emesis and at the same time he had about 3 bowel movements that were black and tarry in nature. She complains of some epigastric discomfort. Denies any prior history of peptic ulcer disease. She reports no recent NSAID use. Does not recall having a GI bleed in the past. On review of her records, she did have an EGD and colonoscopy by Dr. Clemens in 2014, which showed some gastritis and small colon polyps. PAST MEDICAL HISTORY: Significant for hypothyroidism, chronic kidney injury, anxiety, depression, history of bilateral hydronephrosis requiring bilateral ureteral stent placement, history of uterine cancer and breast cancer, DVT in the past, questionable history of cirrhosis of the liver, but patient could not answer much questions about it. PAST SURGICAL HISTORY: Adenoidectomy, appendectomy, breast lumpectomy, cholecystectomy, hysterectomy, tonsillectomy. SOCIAL HISTORY: No smoking or alcohol use. FAMILY HISTORY: Father of complications of shrapnel in the body and mother had some stomach problems. REVIEW OF SYSTEMS: CARDIOPULMONARY: She denies any chest pain or shortness of breath. GENITOURINARY: No recent dysuria or hematuria. MUSCULOSKELETAL: Unremarkable. SKIN: Unremarkable. ENDOCRINE: Unremarkable. PSYCHIATRIC: Unremarkable. NEUROLOGY: Unremarkable. ENT/VISION: Unremarkable. CONSTITUTIONAL: No recent weight loss. No fever, chills, night sweats. ALLERGIES: Include VANESSA INHIBITORS, BACLOFEN, MAXIPIME, CEPHALEXIN, CIPRO, CLINDAMYCIN, ERYTHROMYCIN, LISINOPRIL, ATIVAN, FLAGYL, SHELLFISH, AND SULFA AND STEROIDS. MEDICATIONS: Medications in the hospital: Abilify, aspirin, vitamin D3, Mucinex, Aranesp, Lexapro, Pepcid, Century, Dilaudid, Synthroid, magnesium, Narcan, Zofran, Demadex, prednisone. PHYSICAL EXAMINATION: She appears comfortable. No apparent distress. VITAL SIGNS: Stable. Blood pressure is 132/63, pulse rate 69, temperature 97.9. HEENT examination unremarkable. Conjunctivae pink. Sclerae anicteric. Oral cavity no lesions. NECK: No JVD or lymph node enlargement. Chest was clear to auscultation. HEART: Regular rate and rhythm. Abdomen is soft. There is mild tenderness in the epigastric area. Bowel sounds are positive. No organomegaly. EXTREMITIES: no pedal edema. SKIN: No rashes. NEUROLOGIC: Alert and oriented x3. No focal deficits. LABS: From today; WBC 10.4, hemoglobin 11, platelets are normal. BUN is 114 and creatinine is 2.34. Stool Hemoccult was positive. IMPRESSION: 1. Acute kidney injury superimposed on chronic kidney disease. The patient with bilateral hydronephrosis status post ureteral stent placement by Dr. Contreras a few months ago, which has been exchanged last week. Continues to have gradually worsening BUN and creatinine during the hospitalization. Dr. Sawant following the patient closely. She was diagnosed with interstitial nephritis and presently on prednisone 100 mg daily. 2. Acute upper gastrointestinal bleed. She had 4 episodes of coffee-grounds emesis and few episodes of melena. Hemoglobin however remained stable at 11 g/dL. Rule out peptic ulcer disease. RECOMMENDATION: 1. We will continue with Pepcid 20 mg daily. 2. Continue with a regular diet. 3. We will proceed with an upper endoscopy tomorrow. I discussed with the patient the risks, benefits and complications of the procedure and she is agreeable to it. Thank you for this consultation. MMODL / IJN: [id number] /
[2018-07-13] MEDS: SODIUM CHLORIDE 0.9% 1,000 ML IV SCH (12:49)
[2018-07-13] MEDS: CHOLECALCIFEROL 1,000 UNIT TAB PO SCH (16:45)
[2018-07-13] MEDS: ASPIRIN 81 MG PO SCH (16:46)
[2018-07-13] MEDS: ONDANSETRON 4 MG/2 ML VIAL IVP PRN (18:07)
[2018-07-13] MEDS: ARIPiprazole 2 MG TAB PO SCH (20:04)
--- NOTE | 2018-07-13 20:56 | PN ---
PROGRESS NOTE SUBJECTIVE: This is a 67-year-old white female with renal insufficiency and acute tubular necrosis secondary to ureter obstruction. Ureteral stents were replaced. Creatinine is improving down to 2.3. Due to Hemoccult-positive stool, she is going to have a EGD in the morning. CARDIOVASCULAR: S1, S2. LUNGS: Clear. GI: Soft. HEMATOLOGY: Negative Homans. PSYCH: Fair mood and affect. ASSESSMENT: Acute renal insufficiency, chronic renal disease due to ureteral obstruction. Please see further orders. EGD in the morning. MMODL / IJN: [id number] /
[2018-07-14] MEDS: CLOTRIMAZOLE TROCHE 10 MG TROCHE MUCOUS MEM SCH ×5 (00:07→21:05)
[2018-07-14] MEDS: SALT AND SODA MOUTHWASH 1,000 ML PO SCH ×3 (00:07→19:29)
[2018-07-14] MEDS: ESCITALOPRAM 20 MG TAB PO SCH (08:33)
[2018-07-14] MEDS: LEVOTHYROXINE 50 MCG TAB PO SCH (08:33)
[2018-07-14] MEDS: predniSONE 20 MG TAB PO SCH (08:33)
[2018-07-14] MEDS: FAMOTIDINE 20 MG TAB PO SCH (08:33)
[2018-07-14] MEDS: TORSEMIDE 20 MG TAB PO SCH (08:34)
[2018-07-14] MEDS: ONDANSETRON 4 MG/2 ML VIAL IVP PRN ×2 (08:40→16:56)
[2018-07-14 09:58] LABS: ALT 41 U/L (9-52); AST 33 U/L (14-36); Albumin 3.3 g/dL (3.5-5.0); Alkaline Phosphatase 154 U/L (38-126); Anion Gap 12 mmol/L; Calcium 8.5 mg/dL (8.4-10.2); Chloride 84 mmol/L (98-107); Glucose 90 mg/dL (74-99); Potassium 3.7 mmol/L (3.5-5.1); Sodium 136 mmol/L (137-145); Total Bilirubin 0.6 mg/dL (0.2-1.3); Total Protein 6.7 g/dL (6.3-8.2)
[2018-07-14 10:00] LABS: Anisocytosis Slight; Basophils % (A) 0 %; Eosinophils % (A) 0 %; HCT 33.3 % (34.0-46.0); HGB 10.7 gm/dL (11.4-16.0); Hypochromasia Slight; Lymphocytes # (A) 0.7 k/uL (1.0-4.8); Lymphocytes % (A) 9 %; MCH 28.9 pg (25.0-35.0); MCHC 32.3 g/dL (31.0-37.0); MCV 89.7 fL (80.0-100.0); Mean Platelet Volume 8.2; Monocytes # (A) 0.6 k/uL (0-1.0); Monocytes % (A) 8 %; Neutrophils # (A) 6.2 k/uL (1.3-7.7); Neutrophils % (A) 81 %; Platelet Count 147 k/uL (150-450); RBC 3.71 m/uL (3.80-5.40); RDW 17.7 % (11.5-15.5); WBC 7.6 k/uL (3.8-10.6)
[2018-07-14 10:23] LABS: Blood Urea Nitrogen 109 mg/dL (7-17)
[2018-07-14 10:24] LABS: Carbon Dioxide >40 mmol/L (22-30)
[2018-07-14] MEDS ORDERED: PROPOFOL 10 MG/ML 20 ML VIAL IV ONE (11:33)
[2018-07-14] MEDS ORDERED: LIDOCAINE 1% INJ 10MG/ML (20 ML MDV) ONE (11:33)
[2018-07-14] MEDS ORDERED: IV FLUID CONTINUATION 1,000 ML IV ONE (11:34)
--- NOTE | 2018-07-14 12:08 | P.PCN ---
Date of Procedure: 07/14/18 Description of Procedure: BRIEF HISTORY: 67-year-old female who presents after recent medical hospitalization for treatment of acute kidney injury and recurrent urinary tract infections during which she was treated with ureteral stent placement and with steroids for treatment of acute interstitial nephritis who reports multiple episodes of coffee-ground emesis and melena. The patient reports severe nausea with 4 episodes of coffee-ground emesis as well as 3 bowel movements described as black and tarry in nature. Denies any prior episodes of GI bleeding. Denies any history of peptic ulcer disease. Last EGD and colonoscopy in 2014 showed gastritis and small colonic polyp. PROCEDURE PERFORMED: Esophagogastroduodenoscopy with biopsy. PREOPERATIVE DIAGNOSIS: Melena, coffee-ground emesis, anemia of acute blood loss. ESTIMATED BLOOD LOSS: Minimal. IV sedation per anesthesia. PROCEDURE: After informed consent was obtained, the patient was brought into the endoscopy unit. IV sedation was administered by Anesthesia under continuous monitoring. Initially the Olympus GIF-190 video endoscope was inserted into the mouth. Esophagus intubated without any difficulty. It was gradually advanced into the stomach and duodenum and carefully examined. The bulb and the second part of the duodenum appeared normal, except for some mild scattered erythema consistent with mild duodenitis with biopsies taken. The scope at this time was withdrawn to the stomach, adequately insufflated with air, and upon careful examination, mucosa of the antrum, body, cardia and the fundus appeared grossly normal except for some scattered erythema and irritation in the antrum and body suggestive of moderate gastritis with CT of the antrum and body taken. The scope was then withdrawn into the esophagus. Small hiatal was noted. The GE junction was located at 37 cm from the incisors. The esophagus appeared normal. There were no erosions or ulcerations seen and the patient tolerated the procedure well. IMPRESSION: 1. Moderate gastritis antrum and body, biopsied. 2. Mild duodenitis biopsied. 3. Small hiatal hernia. 4. No active bleeding or old blood noted, upper GI bleeding likely from Ruth-Tejada tear in the setting of nausea and vomiting. RECOMMENDATIONS: The findings of this examination were discussed with the patient. Okay for regular diet. Continue to monitor hemoglobin and hematocrit and transfuse as needed. Continue Protonix daily. Await pathology from biopsies.
--- NOTE | 2018-07-14 15:41 | P.PN ---
Subjective Progress Note Date: 07/14/18 This is a 67-year-old female presented to the ER as advised by PCP with significant bilateral leg edema, approximate 40 pound weight gain in 2-1/2 weeks, shortness of breath with exertion and laying flat, acute on chronic renal failure in a patient who recently had renal stents replaced 2 weeks ago. Repo rts had nausea vomiting and diarrhea at home, diarrhea has subsided. This morning he had nausea with dry heaving, received Zofran. Reports incontinent of urine for the last 7-8 months. Denies chest pain. Denies history of CHF. Abdominal x-ray nonspecific, renal ultrasound reporting bilateral hy dronephrosis. EKG sinus rhythm. Echo pending. Creatinine 3.26 on admission up to 3.37. Hemoglobin 8.5, on admission, down to 7.6. Denies chest pain, palpitations. Complains of right-sided mid to lower quadrant abdominal pain that radiates to the back. Patient recently completed IV antibiotic therapy of Invanz for [id number] E. coli UTI, with PICC line discontinued this past Saturday. States she has been dealing with recurrent bladder infections for over 1 year. On 06/11/2018 patient was 72.4 kg, now 92.53 on admission. Afebrile, WBC 4.4.systolic blood pressures 90s to 110s. 07/02/2018 Maintained on IV push Lasix, I&O inaccurate secondary to incontinence. Reweighed this afternoon on standing scale, 92.2 kg, 92.5 kg on admission. Echo reporting normal LV function, 55-60%. Magnesium 1.1, receiving supplements. CT of abdomen ordered by urology, pending. Creatinine worsening, 3.73. Significant bilateral lower extremity edema persists, mildly improved. Denies chest pain, palpitations or increased shortness of breath. 07/03/2018 maintained on diuretics as per nephrology. Renal function continues worsening up to 3.88. Inaccurate I& O secondary to incontinence. Bilateral lower extremity edema slowly improving. Abdomen increasing firmness. Complains of nausea. Denies chest pain, palpitations. No increasing shortness of breath except when laying flat, or with minimal exertion. Bilateral hydronephrosis reported on computed tomography scan with bilateral ureteral stents present. 07/04/2018 King catheter inserted yesterday for strict I&O's; diuresing well on Lasix IV push with 24-hour I&O reflecting a negative fluid balance, significant edema present-improving. Case discussed with urology yesterday afternoon, patient is scheduled for stent exchange today. Creatinine 3.85( 3.88 yesterday). Abdomen distended, firm. Complains of right abdominal quadrant tenderness extending to right flank -unchanged, mild increased shortness of breath. Currently wearing 2 L nasal cannula. maintaining O2 sats of flow 90s. Denies chest pain, palpitations. Afebrile, T-max 99, normal WBC. Urine culture negative. 07/09/2018 diuresing well, maintained on Lasix drip, with 24-hour I&O reflecting a negative fluid balance. Bilateral leg edema, significant, slowly improving. Orthopnea and exertional shortness of breath persists. Maintaining O2 sats in the 90s on room air. Renal function continues to improve, down to 2.87. Status post bilateral ureteral stents exchanged on 07/04/2018. Maintained on prednisone for potential ALLERGIC interstitial nephritis. Afebrile, previous Urine culture negative, current UA reporting large leukocytes, high WBCs, many bacteria. 07/10/2018 significant bilateral leg edema continues to slowly improve .Diures ing well on Lasix drip with 24-hour I&O reflecting a negative fluid balance. Diamox added to med regime as per nephrology. Creatinine continues to improve, currently 2.59. Potassium 3.5, receiving supplementation. Afebrile. PT/OT. Up in chair for meals. 07/11/2018 continues on Lasix drip, BUN up to 93, creatinine down to 2.39. Had a rough night, started feeling increased malaise,fatigue after dinner last night. Afebrile. This morning increased nausea, no emesis, diarrhea 4 episodes after breakfast. Denies cough. No chest pain, no palpitations no increased shortness of breath. 07/14/2018 NPO, scheduled for EGD. Yesterday had positive Hemoccult stool ,multiple coffee-ground emesis, subsided. Labs pending. Maintained on IV antibiotics Azactam. King changed with UA/culture repeated as per ID. Objective - Vital Signs Vital signs: Vital Signs Temp 98.2 F 07/14/18 07:00 Pulse 55 L 07/14/18 07:00 Resp 12 07/14/18 07:00 BP 130/60 07/14/18 07:00 Pulse Ox 97 07/14/18 07:00 Intake & Output 07/13/18 07/14/18 07/14/18 18:59 06:59 18:59 Intake Total 360 Output Total 1600 1490 Balance -1240 -1490 Weight 72.3 kg Intake: Oral 360 Output: Urine 1600 1490 Other: Voiding Method Indwelling Catheter Indwelling Catheter # Bowel Movements 1 - Exam PHYSICAL EXAM: VITAL SIGNS: As above GENERAL: Sitting up in bed, no acute distress HEENT: Conjunctivae normal. eyes normal. Oral mucosa dry NECK: No JVD. No thyroid enlargement. No LNs CARDIOVASCULAR: S1, S2 regular, No murmur RESPIRATION: Nonlabored, bilateral bases diminished No rhonchi ,crackles or wheezing. ABDOMEN: Softer, distended, nontender. No guarding. no masses palpable. Bowel sounds heard. LEGS: significant improvement in bilateral lower extremity edema, PSYCHIATRY: Alert and oriented -3, mood and affect normal. NERVOUS SYSTEM: Cranial N 2-12 grossly normal. Diffuse weakness No focal deficits - Labs CBC & Chem 7: 07/14/18 08:55 07/14/18 08:55 Labs: Abnormal Lab Results - Last 24 Hours (Table) 07/13/18 07/13/18 Range/Units 06:36 06:36 Hgb 11.0 L (11.4-16.0) gm/dL RDW 18.2 H (11.5-15.5) % Neutrophils # 8.7 H (1.3-7.7) k/uL Chloride 86 L (98-107) mmol/L Carbon Dioxide 43 H* (22-30) mmol/L BUN 114 H* (7-17) mg/dL Creatinine 2.37 H (0.52-1.04) mg/dL AST 38 H (14-36) U/L Alkaline Phosphatase 176 H (38-126) U/L Albumin 3.4 L (3.5-5.0) g/dL Assessment and Plan Assessment: -Fluid overload related to obstructive uropathy without evidence of nephrotic syndrome. Significant bilateral leg edema. Echo reporting normal LV function. -Acute on chronic renal failure, stage III. Acute secondary to obstructive uropathy, and diuresing. Chronic secondary to nephrosclerosis. Baseline 1.3 -Bilateral hydronephrosis in a patient with recent bilateral ureteral stent replacements. Status post bilateral ureteral stent exchange 07/04/2018. -Anemia of chronic disease, secondary to renal failure, iron deficiency. -Metabolic acidosis secondary to acute renal failure, resolved -Acute UTI with Enterobacter Clocae & Klebsiella Oxytoca, in a patient with Recurrent UTIs, recently treated for multidrug resistant E. coli UTI -History of nonalcoholic cirrhosis -Clotting disorder, not factor V -Hypertension -Depression -Melanoma, uterine cancer, Lung Ca, breast cancer -History of DVT Plan: Continue on current medication regime , Pepcid ,monitoring and symptomatic treatment. Maintain IV antibiotics as per ID. Urine cultures repeated followin g King catheter change. NPO, awaiting EGD today.Close monitoring of renal function, electrolytes with repeat labs ordered for a.m. Prognosis guarded given multiple complex medical issues. The impression and plan of care has been dictated as directed. : I performed a history and examination of this patient, discussed the same with the dictator. I agree with the dictator's note ,documented as a scribe. Any additional findings or plans will be noted. Time taken: 35 minutes
[2018-07-14] MEDS: AZTREONAM 1 GM in SODIUM CHLORIDE 0.9% 50 ML IVPB SCH ×2 (16:55→21:15)
[2018-07-14] MEDS: HYDROcodone/APAP 10-325MG 1 EACH TAB PO PRN (16:56)
[2018-07-14] MEDS: acetaZOLAMIDE 250 MG TAB PO SCH ×2 (16:57→21:06)
[2018-07-14] MEDS: SODIUM CHLORIDE 0.9% 1,000 ML IV SCH (16:57)
[2018-07-14 17:40] LABS: Appearance,Urine Cloudy (Clear); Bilirubin,Urine Negative (Negative); Blood,Urine Trace (Negative); Color,Urine Light Yellow; Glucose,Urine (UA) Negative (Negative); Ketones,Urine Negative (Negative); Leukocyte Esterase,Urine Large (Negative); Mucus,Urine Rare /hpf; Nitrite,Urine Negative (Negative); Protein,Urine Negative (Negative); RBC,Urine 8 /hpf (0-5); Specific Gravity,Urine 1.011 (1.001-1.035); Squamous Epithelial Cell,Urine 1 /hpf (0-4); Urobilinogen,Urine <2.0 mg/dL (<2.0); WBC,Urine 137 /hpf (0-5)
--- NOTE | 2018-07-14 17:47 | PN ---
PROGRESS NOTE Patient is seen for followup for acute kidney injury and volume overload. She has been maintained on Lasix drip, which is now discontinued. Patient is on oral diuretics. She states she is feeling much better. Her weight is down and staying about the same as yesterday. On examination this morning, blood pressure was 130/60, heart rate 55 per minute. She is afebrile. EXAMINATION OF THE HEART: S1 and S2. EXAMINATION OF LUNGS: Bilateral breath sounds are heard. ABDOMEN: Soft, non-tender. Examination of lower extremities shows edema 1+ bilaterally, significantly reduced. [employer] DIRECT[employer] exam is grossly intact. Labs show sodium 136, potassium 3.7. CO2 is more than 40. BUN 109, serum creatinine 2.20, hemoglobin 10.7 g/dL. ASSESSMENT: 1. Acute kidney injury, cardiorenal, currently improving. 2. Severe volume overload, now significantly improved post Lasix drip. 3. Metabolic alkalosis secondary to diuretics. I will add Diamox and discontinue the sodium bicarb. 4. Positive stool for occult blood, being followed by GI and scheduled for endoscopy. 5. Hypothyroidism. PLAN: Decrease Demadex. Hold sodium bicarb mouthwash, given the significant alkalosis and one dose of Diamox today. Repeat labs in a.m.. MMODL / IJN: [id number] /
[2018-07-14] MEDS: CHOLECALCIFEROL 1,000 UNIT TAB PO SCH (17:58)
[2018-07-14] MEDS: ASPIRIN 81 MG PO SCH (17:58)
[2018-07-14] MEDS: ARIPiprazole 2 MG TAB PO SCH (21:06)
[2018-07-14] MEDS: HYDROmorphone 0.5 MG/0.5 ML SYRINGE IVP PRN (21:12)
--- NOTE | 2018-07-14 22:04 | P.CONS ---
History of Present Illness - Reason for Consult Consult date: 07/14/18 Infection Requesting physician: Miles Collado - Chief Complaint Leg swelling x weeks,positive urine culture, multiple antibiotic ALLERGIES - History of Present Illness Patient is 67 year female who was recently admitted this facility patient did have a right-sided hydronephrosis for the patient did have exchange of ureteral stent done on 06/11/2018, patient did have multiple antibiotic ALLERGIES urine culture positive for E. coli that was treated with IV Azactam, patient subsequently started having more swelling in her legs and gained almost 40 pounds for the patient has been healthy admitted to this facility about 2 weeks ago and has been managed by multiple consultants including neurology and nephrology and pulmonary services, the patient did have King catheter that was placed on admission, a UA done 2 days ago was positive and the cultures are cur rently showing Enterobacter and Klebsiella that prompted this infectious disease consultation. The patient has been afebrile throughout her hospital stay and did not have any elevated white count however the patient has been complaining of pain in the right lower abdominal area more of a dull aching pain with intensity of about 7 out of 10 with no radiation the patient has felt nauseated but no vomiting and denies having any diarrhea Review of Systems CONSTITUTIONAL: Positive for weakness. no Fever EYES: No complaint. ENT:No complaint. RESPIRATORY: No complaint. CARDIOVASCULAR: As per history of present illness GENITOURINARY: As per history of present illness GASTROINTESTINAL: As per history of present illness. MUSCULOSKELETAL: No complaint. INTEGUMENTARY: No complaint. PSYCHOLOGICAL: No complaint. ENDOCRINE: No complaint. NEUROLOGIC: No complaint. Past Medical History Past Medical History: Blood Disorder, Cancer, Deep Vein Thrombosis (DVT), GI Bleed, Liver Disease, Respiratory Disorder Additional Past Medical History / Comment(s): 09-10-14 admitted to [facility] with c/o blood in urine and rectal bleeding, DX GI BLEED AND UTI. other hx: Breast Ca x2; Skin Ca squamous and melanoma; uterine ca, lung cancer LOWER LEFT LOBE 70%, c-diff- 6-5-15 snd feb 2017, on xarelto for dvt and portal vein thrombosis. 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 Wound to BACK r/t lung CA, healed 6 months ago History of Any Multi-Drug Resistant Organisms: MRSA Year Discovered:: 09/17/17 MDRO Source:: MRSA URINE Past Surgical History: Adenoidectomy, Appendectomy, Breast Surgery, Cholecystectomy, Hysterectomy, Orthopedic Surgery, Tonsillectomy Additional Past Surgical History / Comment(s): Mastectomy bilateral; Left lower lobectomy 70%; exploratory laparotomy, LASER SX AT [facility] FOR MELANOMA- CURRENTLY HAS 100 SPOTS THAT THEY ARE WATCHING REMMOVED 4 SO FAR.lasik eye sx, past "abcess on back(ecoli) pt stated they had to open a channel,removed 2 ribs and some muscle and it was open to drain to 18 months". surgical repair to Right wrist, right femur, and right hip in 2018 Additional Past Anesthesia/Blood Transfusion Reaction / Comm: PAST BLOOD TRANSF USIONS- NO COMPLICATIONS Past Psychological History: Depression Additional Psychological History / Comment(s): LOW DOSE LEXAPRO, CURRENTLY NO DEPRESSION, PT normally lives at home with her zeeshan, however currently patient resides at [facility] due to right arm and hip fractures . pt started she had just recently started working w/pt getting up w/walker and assistance and transfer w/assistance to w/c Smoking Status: Former smoker Past Alcohol Use History: None Reported Additional Past Alcohol Use History / Comment(s): STARTED SMOKING AT AGE 13, SMOKED 1 PPD SMOKED FOR 3 YEARS THEN CUT DOWN TO ONLY SMOKING WHEN OUT WITH FRIENDS.QUIT 1978. Past Drug Use History: None Reported - Past Family History Father Additional Family Medical History / Comment(s): FROM COMPLICATIONS OF SCHRAPNEL IN BODY Mother Additional Family Medical History / Comment(s): STOMACH PROBLEMS, EMPHYSEMA Medications and Allergies Home Medications Medication Instructions Recorded Confirmed Type Levothyroxine Sodium [Synthroid] 50 mcg PO DAILY@0600 07/04/17 06/30/18 History Escitalopram Oxalate [Lexapro] 20 mg PO DAILY 07/06/17 06/30/18 History Cholecalciferol [Vitamin D3 (25 2,000 unit PO DAILY@1700 07/22/17 06/30/18 History Mcg = 1000 Iu)] Aspirin EC [Ecotrin] 325 mg PO DAILY@1700 08/30/17 06/30/18 History Furosemide [Lasix] 20 mg PO DAILY@0600 08/30/17 06/30/18 History ARIPiprazole [Abilify] 2 mg PO HS 06/04/18 06/30/18 History Allergies Allergy/AdvReac Type Severity Reaction Status Date / Time VANESSA Inhibitors Allergy Unknown Verified 07/04/18 14:33 baclofen Allergy Confusion Verified 07/04/18 14:33 cefepime HCl [From Maxipime] Allergy Rash/Hives Verified 07/04/18 14:33 cephalexin Allergy Rash/Hives Verified 07/04/18 14:33 ciprofloxacin Allergy Rash/Hives Verified 07/04/18 14:33 clindamycin Allergy Nausea & Verified 07/04/18 14:33 Vomiting erythromycin base Allergy Rash/Hives Verified 07/04/18 14:33 heparin Allergy Unknown Verified 07/04/18 14:33 lisinopril [From Zestril] Allergy Unknown Verified 07/04/18 14:33 lorazepam [From Ativan] Allergy Confusion Verified 07/04/18 14:33 metronidazole [From Flagyl] Allergy Nausea & Verified 07/04/18 14:33 Vomiting penicillin G Allergy Rash/Hives Verified 07/04/18 14:33 shellfish derived [Shellfish] Allergy Swelling Verified 07/04/18 14:33 Sulfa (Sulfonamide Allergy Swelling Verified 07/04/18 14:33 Antibiotics) steroids Allergy Unknown Uncoded 07/04/18 14:33 Physical Exam Vitals: Vital Signs Temp Pulse Pulse Pulse Resp BP Pulse Ox 07/14/18 07:30 55 L 07/14/18 07:00 98.2 F 55 L 12 130/60 97 07/14/18 01:35 98.0 F 67 18 123/61 99 07/13/18 19:46 98.1 F 74 17 118/60 96 07/13/18 15:00 98.2 F 81 16 97/57 92 L Intake and Output 07/13/18 07/14/18 07/14/18 22:59 06:59 14:59 Intake Total 120 Output Total 800 1490 600 Balance -680 -1490 -600 Intake: Oral 120 Output: Urine 800 1490 600 Other: Voiding Method Indwelling Catheter Indwelling Catheter Weight 72.3 kg GENERAL DESCRIPTION: Elderly female lying in bed, no distress. No tachypnea or accessory muscle of respiration use. HEENT: Shows Pallor , no scleral icterus. Oral mucous membrane is dry. No pharyngeal erythema or thrush NECK: Trachea central, no thyromegaly. LUNGS: Unlabored breathing. Decreased breath sound the base. No wheeze or crackle. HEART: S1, S2, regular rate and rhythm. No loud murmur ABDOMEN: Soft, mild right lower quadrant tenderness , guarding or rigidity, no organomegaly EXTREMITIES: 2+ edema of feet. SKIN: No rash, no masses palpable. NEUROLOGICAL: The patient is awake, alert, oriented x3, mood and affect normal. Results CBC & Chem 7: 07/14/18 08:55 07/14/18 08:55 Labs: Abnormal Lab Results - Last 24 Hours (Table) 07/14/18 07/14/18 Range/Units 08:55 08:55 RBC 3.71 L (3.80-5.40) m/uL Hgb 10.7 L (11.4-16.0) gm/dL Hct 33.3 L (34.0-46.0) % RDW 17.7 H (11.5-15.5) % Plt Count 147 L (150-450) k/uL Lymphocytes # 0.7 L (1.0-4.8) k/uL Sodium 136 L (137-145) mmol/L Chloride 84 L (98-107) mmol/L Carbon Dioxide >40 H* (22-30) mmol/L BUN 109 H* (7-17) mg/dL Creatinine 2.20 H (0.52-1.04) mg/dL Alkaline Phosphatase 154 H (38-126) U/L Albumin 3.3 L (3.5-5.0) g/dL Microbiology - Last 24 Hours (Table) 07/11/18 10:35 Urine Culture - Final Urine,Catheterized Enterobacter cloacae Klebsiella oxytoca Assessment and Plan Assessment: 1-patient with a positive urine culture showing Klebsiella and Enterobacter in this patient who did have a King catheter for the last 2 weeks since admission Hospital for lower extremity swelling and also with no fever or elevated white count with question of possible King colonization versus a UTI 2-patient with multiple antibiotic ALLERGIES that would limit the number of ant ibiotic that could be safe to use Plan: 1-change King catheter and obtain urine culture from the new King 2-empirically add Azactam 1 g every 12 while waiting for the repeat urine culture finalized We will follow-up on clinical condition and cultures to further adjust m edication if needed Thank you for this consultation will follow this patient along with you Time with Patient: Greater than 30
[2018-07-15] MEDS: LEVOTHYROXINE 50 MCG TAB PO SCH (05:59)
[2018-07-15] MEDS: HYDROmorphone 0.5 MG/0.5 ML SYRINGE IVP PRN (06:04)
[2018-07-15] MEDS: CLOTRIMAZOLE TROCHE 10 MG TROCHE MUCOUS MEM SCH ×5 (06:04→20:47)
[2018-07-15 08:51] LABS: Albumin 3.1 g/dL (3.5-5.0); Calcium 8.6 mg/dL (8.4-10.2); Total Bilirubin 0.6 mg/dL (0.2-1.3); Total Protein 6.4 g/dL (6.3-8.2)
[2018-07-15] MEDS ORDERED: TORSEMIDE 20 MG TAB PO SCH (09:00)
[2018-07-15 09:11] LABS: Anisocytosis Slight; Basophils % (A) 0 %; Eosinophils % (A) 0 %; HCT 32.5 % (34.0-46.0); Hypochromasia Moderate; Lymphocytes # (A) 1.2 k/uL (1.0-4.8); Lymphocytes % (A) 13 %; MCH 28.3 pg (25.0-35.0); MCHC 30.9 g/dL (31.0-37.0); MCV 91.5 fL (80.0-100.0); Mean Platelet Volume 8.6; Monocytes # (A) 0.8 k/uL (0-1.0); Monocytes % (A) 9 %; Neutrophils % (A) 76 %; Platelet Count 220 k/uL (150-450); RBC 3.56 m/uL (3.80-5.40); RDW 18.4 % (11.5-15.5); WBC 9.3 k/uL (3.8-10.6)
[2018-07-15 09:14] LABS: Potassium 4.4 mmol/L (3.5-5.1)
--- NOTE | 2018-07-15 10:12 | P.PN ---
Subjective Progress Note Date: 07/15/18 Principal diagnosis: GI bleed Status post EGD yesterday findings of moderate gastritis mild duodenitis small hiatal hernia and no active bleeding. Presently no complaints. Denies hematemesis hematochezia melena. Tolerating diet. Hemoglobin stable 10. BUN 113. Creatinine increased 2.9. Objective - Vital Signs Vital signs: Vital Signs Temp 98.1 F 07/15/18 08:30 Pulse 69 07/15/18 08:30 Resp 16 07/15/18 08:30 BP 116/69 07/15/18 08:30 Pulse Ox 100 07/15/18 08:30 Intake & Output 07/14/18 07/15/18 07/15/18 18:59 06:59 18:59 Intake Total 50 400 Output Total 2400 Balance -2350 400 Weight 70.4 kg Intake: IV 50 Oral 400 Output: Urine 2400 Uretheral (King) 1000 Other: Voiding Method Indwelling Catheter Indwelling Catheter - Exam General appearance: The patient is alert, oriented, in no acute distress. HET: Head is normocephalic and atraumatic. Pupils are equal and reactive. Oropharynx is clear without lesions. Neck: Supple without lymphadenopathy. Trachea midline. Heart: S1 S2. Regular rate and rhythm. Lungs: No crackles or wheezes are heard. Abdomen: Soft, nontender, nondistended with bowel sounds. No peritoneal signs. No palpable organomegaly or masses. Extremities: Normal skin color and turgor. No cyanosis, rash, ulceration, clubbing, or edema. Radial and pedal pulses are 2/4 bilaterally. Neurological: No focal deficits. Strength and sensation are grossly intact. - Labs CBC & Chem 7: 07/15/18 08:23 07/15/18 08:23 Labs: Abnormal Lab Results - Last 24 Hours (Table) 07/14/18 07/14/18 07/15/18 Range/Units 08:55 17:27 08:23 RBC 3.56 L (3.80-5.40) m/uL Hgb 10.0 L (11.4-16.0) gm/dL Hct 32.5 L (34.0-46.0) % MCHC 30.9 L (31.0-37.0) g/dL RDW 18.4 H (11.5-15.5) % Sodium 136 L (137-145) mmol/L Chloride 84 L (98-107) mmol/L Carbon Dioxide >40 H* (22-30) mmol/L BUN 109 H* (7-17) mg/dL Creatinine 2.20 H (0.52-1.04) mg/dL Alkaline Phosphatase 154 H (38-126) U/L Albumin 3.3 L (3.5-5.0) g/dL Urine Appearance Cloudy H (Clear) Urine Blood Trace H (Negative) Ur Leukocyte Esterase Large H (Negative) Urine RBC 8 H (0-5) /hpf Urine WBC 137 H (0-5) /hpf Urine WBC Clumps Moderate H (None) /hpf Urine Mucus Rare H (None) /hpf 07/15/18 Range/Units 08:23 RBC (3.80-5.40) m/uL Hgb (11.4-16.0) gm/dL Hct (34.0-46.0) % MCHC (31.0-37.0) g/dL RDW (11.5-15.5) % Sodium (137-145) mmol/L Chloride 92 L (98-107) mmol/L Carbon Dioxide 40 H (22-30) mmol/L BUN 113 H* (7-17) mg/dL Creatinine 2.92 H (0.52-1.04) mg/dL Alkaline Phosphatase 139 H (38-126) U/L Albumin 3.1 L (3.5-5.0) g/dL Urine Appearance (Clear) Urine Blood (Negative) Ur Leukocyte Esterase (Negative) Urine RBC (0-5) /hpf Urine WBC (0-5) /hpf Urine WBC Clumps (None) /hpf Urine Mucus (None) /hpf Microbiology - Last 24 Hours (Table) 07/14/18 17:27 Urine Culture - Preliminary Urine,Catheterized 07/11/18 10:35 Urine Culture - Final Urine,Catheterized Enterobacter cloacae Klebsiella oxytoca Assessment and Plan Assessment: Impression: 1. Acute upper GI bleed status post EGD for evaluation of coffee-ground emesis no evidence of peptic ulcer disease or active bleeding possible Ruth-Tejada tear. EGD findings of mild duodenitis moderate gastritis and small hiatal hernia. Hemoglobin stable 10.0. 2. cute kidney injury superimposed on chronic kidney disease. Bilateral hydr onephrosis status post ureteral stent placement a few months ago with exchange last week. BUN/creatinine elevated slightly worse today. Nephrology following closely. Underlying history of interstitial nephritis presently on prednisone therapy. Plan: 1. Continue with diet as tolerated. Continue present medical therapy. Continue with Pepcid 20 mg daily. CBC monitoring. Assessment and plan a care discussed with Dr. Nielsen
[2018-07-15] MEDS: AZTREONAM 1 GM in SODIUM CHLORIDE 0.9% 50 ML IVPB SCH ×2 (10:31→22:01)
[2018-07-15] MEDS: ESCITALOPRAM 20 MG TAB PO SCH (10:32)
[2018-07-15] MEDS: FAMOTIDINE 20 MG TAB PO SCH (10:32)
[2018-07-15] MEDS: acetaZOLAMIDE 250 MG TAB PO SCH ×2 (10:32→22:01)
[2018-07-15] MEDS: predniSONE 20 MG TAB PO SCH (10:33)
--- NOTE | 2018-07-15 10:56 | P.PN ---
Subjective Progress Note Date: 07/15/18 This is a 67-year-old female presented to the ER as advised by PCP with significant bilateral leg edema, approximate 40 pound weight gain in 2-1/2 weeks, shortness of breath with exertion and laying flat, acute on chronic renal failure in a patient who recently had renal stents replaced 2 weeks ago. Repo rts had nausea vomiting and diarrhea at home, diarrhea has subsided. This morning he had nausea with dry heaving, received Zofran. Reports incontinent of urine for the last 7-8 months. Denies chest pain. Denies history of CHF. Abdominal x-ray nonspecific, renal ultrasound reporting bilateral hy dronephrosis. EKG sinus rhythm. Echo pending. Creatinine 3.26 on admission up to 3.37. Hemoglobin 8.5, on admission, down to 7.6. Denies chest pain, palpitations. Complains of right-sided mid to lower quadrant abdominal pain that radiates to the back. Patient recently completed IV antibiotic therapy of Invanz for [id number] E. coli UTI, with PICC line discontinued this past Saturday. States she has been dealing with recurrent bladder infections for over 1 year. On 06/11/2018 patient was 72.4 kg, now 92.53 on admission. Afebrile, WBC 4.4.systolic blood pressures 90s to 110s. 07/02/2018 Maintained on IV push Lasix, I&O inaccurate secondary to incontinence. Reweighed this afternoon on standing scale, 92.2 kg, 92.5 kg on admission. Echo reporting normal LV function, 55-60%. Magnesium 1.1, receiving supplements. CT of abdomen ordered by urology, pending. Creatinine worsening, 3.73. Significant bilateral lower extremity edema persists, mildly improved. Denies chest pain, palpitations or increased shortness of breath. 07/03/2018 maintained on diuretics as per nephrology. Renal function continues worsening up to 3.88. Inaccurate I& O secondary to incontinence. Bilateral lower extremity edema slowly improving. Abdomen increasing firmness. Complains of nausea. Denies chest pain, palpitations. No increasing shortness of breath except when laying flat, or with minimal exertion. Bilateral hydronephrosis reported on computed tomography scan with bilateral ureteral stents present. 07/04/2018 King catheter inserted yesterday for strict I&O's; diuresing well on Lasix IV push with 24-hour I&O reflecting a negative fluid balance, significant edema present-improving. Case discussed with urology yesterday afternoon, patient is scheduled for stent exchange today. Creatinine 3.85( 3.88 yesterday). Abdomen distended, firm. Complains of right abdominal quadrant tenderness extending to right flank -unchanged, mild increased shortness of breath. Currently wearing 2 L nasal cannula. maintaining O2 sats of flow 90s. Denies chest pain, palpitations. Afebrile, T-max 99, normal WBC. Urine culture negative. 07/09/2018 diuresing well, maintained on Lasix drip, with 24-hour I&O reflecting a negative fluid balance. Bilateral leg edema, significant, slowly improving. Orthopnea and exertional shortness of breath persists. Maintaining O2 sats in the 90s on room air. Renal function continues to improve, down to 2.87. Status post bilateral ureteral stents exchanged on 07/04/2018. Maintained on prednisone for potential ALLERGIC interstitial nephritis. Afebrile, previous Urine culture negative, current UA reporting large leukocytes, high WBCs, many bacteria. 07/10/2018 significant bilateral leg edema continues to slowly improve .Diures ing well on Lasix drip with 24-hour I&O reflecting a negative fluid balance. Diamox added to med regime as per nephrology. Creatinine continues to improve, currently 2.59. Potassium 3.5, receiving supplementation. Afebrile. PT/OT. Up in chair for meals. 07/11/2018 continues on Lasix drip, BUN up to 93, creatinine down to 2.39. Had a rough night, started feeling increased malaise,fatigue after dinner last night. Afebrile. This morning increased nausea, no emesis, diarrhea 4 episodes after breakfast. Denies cough. No chest pain, no palpitations no increased shortness of breath. 07/14/2018 NPO, scheduled for EGD. Yesterday had positive Hemoccult stool ,multiple coffee-ground emesis, subsided. Labs pending. Maintained on IV antibiotics Azactam. King changed with UA/culture repeated as per ID. 07/15/2018 patient underwent EGD yesterday, tolerated procedure well. Reported moderate gastritis, biopsies obtained, mild duodenitis, small hiatal hernia, no active bleeding. Hemoglobin 10. Patient is status post Lasix drip, on Diamox with Demadex decreased yesterday as per nephrology. Significant improvement in bilateral leg edema. Creatinine worsening, up to 2.92 with BUN of 113. Good diet intake, reports nausea, no emesis. She reports multiple episodes of diarrhea throughout the night and early this morning. Formed stools yesterday as reported per staff. Continues to have persistent right flank pain that radiates to lower mid back. King catheter changed with UA/urine culture repeated. UA repeating large leukocytes, moderate WBCs, culture results pending. Afebrile, normal WBC. Objective - Vital Signs Vital signs: Vital Signs Temp 98.1 F 07/15/18 08:30 Pulse 69 07/15/18 08:30 Resp 16 07/15/18 08:30 BP 116/69 07/15/18 08:30 Pulse Ox 100 07/15/18 08:30 Intake & Output 07/14/18 07/15/18 07/15/18 18:59 06:59 18:59 Intake Total 50 400 Output Total 2400 Balance -2350 400 Weight 70.4 kg Intake: IV 50 Oral 400 Output: Urine 2400 Uretheral (King) 1000 Other: Voiding Method Indwelling Catheter Indwelling Catheter - Exam PHYSICAL EXAM: VITAL SIGNS: As above GENERAL: Sitting up in bed, no acute distress, nauseated HEENT: Conjunctivae normal. eyes normal. Oral mucosa moist NECK: No JVD. Trachea midline, No thyroid enlargement. No LNs CARDIOVASCULAR: S1, S2 regular, No murmur RESPIRATION: Nonlabored, essentially clear with bilateral bases diminished No rhonchi ,crackles or wheezing. ABDOMEN: Softer, nondistended, nontender. No guarding. no masses palpable. Bowel sounds heard. Right flank tenderness. LEGS: significant improvement in bilateral lower extremity edema, radial/pedal pulses bilaterally present PSYCHIATRY: Alert and oriented -3, mood and affect normal. NERVOUS SYSTEM: Cranial N 2-12 grossly normal. Diffuse weakness No focal deficits Microbiology 07/14/18 17:27 Urine,Catheterized Urine Culture - Preliminary 07/11/18 10:35 Urine,Catheterized Urine Culture - Final Enterobacter cloacae Klebsiella oxytoca 07/10/18 09:00 Urine,Catheterized Urine Culture - Final Enterobacter cloacae 07/02/18 14:15 Urine,Voided Urine Culture - Final - Labs CBC & Chem 7: 07/15/18 08:23 07/15/18 08:23 Labs: Abnormal Lab Results - Last 24 Hours (Table) 07/14/18 07/15/18 07/15/18 Range/Units 17:27 08:23 08:23 RBC 3.56 L (3.80-5.40) m/uL Hgb 10.0 L (11.4-16.0) gm/dL Hct 32.5 L (34.0-46.0) % MCHC 30.9 L (31.0-37.0) g/dL RDW 18.4 H (11.5-15.5) % Chloride 92 L (98-107) mmol/L Carbon Dioxide 40 H (22-30) mmol/L BUN 113 H* (7-17) mg/dL Creatinine 2.92 H (0.52-1.04) mg/dL Alkaline Phosphatase 139 H (38-126) U/L Albumin 3.1 L (3.5-5.0) g/dL Urine Appearance Cloudy H (Clear) Urine Blood Trace H (Negative) Ur Leukocyte Esterase Large H (Negative) Urine RBC 8 H (0-5) /hpf Urine WBC 137 H (0-5) /hpf Urine WBC Clumps Moderate H (None) /hpf Urine Mucus Rare H (None) /hpf Microbiology - Last 24 Hours (Table) 07/14/18 17:27 Urine Culture - Preliminary Urine,Catheterized 07/11/18 10:35 Urine Culture - Final Urine,Catheterized Enterobacter cloacae Klebsiella oxytoca Assessment and Plan Assessment: -Fluid overload related to obstructive uropathy without evidence of nephrotic syndrome. Significant bilateral leg edema, improving. Echo reporting normal LV function. -Acute on chronic renal failure, stage III. Acute secondary to obstructive uropathy, and diuresing. Chronic secondary to nephrosclerosis. Baseline 1.3 -Possible acute interstitial nephritis, in a patient with history of, on steroids as per nephrology -Bilateral hydronephrosis in a patient with recent bilateral ureteral stent replacements. Status post bilateral ureteral stent exchange 07/04/2018. -Acute upper GI bleed, coffee-ground emesis, status post EGD reporting no active bleed, possible Ruth-Tejada tear, moderate gastritis, mild duodenitis and small hiatal hernia. -Anemia of chronic disease, secondary to renal failure, iron deficiency. -Metabolic acidosis secondary to acute renal failure, resolved -Acute UTI with Enterobacter Clocae & Klebsiella Oxytoca, in a patient with Recurrent UTIs, recently treated for multidrug resistant E. 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 Maintain IV antibiotics as per ID. Urine cultures repeated following King catheter change. NPO, awaiting EGD today.Close monitoring of renal function, electrolytes with repeat labs ordered for a.m. Prognosis guarded given multiple complex medical issues. The impression and plan of care has been dictated as directed. : I performed a history and examination of this patient, discussed the same with the dictator. I agree with the dictator's note ,documented as a scribe. Any additional findings or plans will be noted. Time taken: 35 minutes
[2018-07-15] MEDS: HYDROcodone/APAP 10-325MG 1 EACH TAB PO PRN (12:34)
--- NOTE | 2018-07-15 15:22 | PN ---
PROGRESS NOTE DATE OF SERVICE: 07/15/2018 REASON FOR FOLLOWUP: Gram-negative infection with multiple antibiotic allergies. INTERVAL HISTORY: The patient is currently afebrile. Patient is breathing comfortably. Still complaining of some right lower abdominal pain, though no nausea, vomiting. The patient's King catheter has been changed, but no diarrhea. PHYSICAL EXAMINATION: Blood pressure 116/59 with a pulse of 69, temperature 98.1, she is 100% on room air. General description is an elderly female, up in the bed in no distress. RESPIRATORY SYSTEM: Unlabored breathing, clear to auscultation anteriorly. HEART: S1, S2. Regular rate and rhythm. ABDOMEN: Soft, no tenderness. LABS: Hemoglobin 10, white count of 9.3 with a BUN of 113, creatinine 4.92, repeat urine culture obtained still positive. DIAGNOSTIC IMPRESSION AND PLAN: Patient with positive urine culture with Enterobacter and Klebsiella. After change of King, the patient repeat cultures are currently pending. positive. The patient has been getting Azactam 1 g will continue because of multiple antibiotic allergies. Family present at bedside. Questions were answered. MMODL / IJN: [id number] /
--- NOTE | 2018-07-15 15:42 | XR ---
EXAMINATION TYPE: XR chest 1V DATE OF EXAM: 07/15/2018 COMPARISON: 06/30/2018 INDICATION: CHF TECHNIQUE: Single frontal view of the chest is obtained. FINDINGS: The heart size is normal. The pulmonary vasculature is normal. There is streak opacity in the right medial lower lobe may be some atelectasis. Small amount of fluid is at the left costophrenic angle IMPRESSION: 1. Small left pleural effusion. 2. Streak atelectasis right lung base
[2018-07-15] MEDS: SODIUM CHLORIDE 0.9% 1,000 ML IV SCH (17:12)
[2018-07-15] MEDS: MIDODRINE 5 MG TAB PO PRN (17:13)
[2018-07-15] MEDS: CHOLECALCIFEROL 1,000 UNIT TAB PO SCH (17:13)
[2018-07-15] MEDS: ASPIRIN 81 MG PO SCH (17:13)
[2018-07-15] MEDS ORDERED: SODIUM CHLORIDE 0.9% 1,000 ML IV SCH (19:15)
--- NOTE | 2018-07-15 20:04 | PN ---
PROGRESS NOTE Patient is seen for followup for acute kidney injury. She was admitted to the hospital with creatinine of around 3.2. It peaked at 3.8 and then, as her volume status improved when Lasix drip was started, patient's serum creatinine came down to about 2.2 mg/dL. Today it is high at 2.9. Blood pressure was low and patient is maintained on midodrine. Lasix drip has been discontinued and she has been switched over to Demadex, the dose of which was decreased yesterday. Currently patient denies any chest pains or shortness of breath. Her weight continues to decrease and is down to 70 kg today from 92.5 on initial admission. On examination today, blood pressure was 116/69, heart rate 69 per minute. She is afebrile. EXAMINATION OF THE HEART: S1 and S2. EXAMINATION OF LUNGS: Bilateral breath sounds are heard. ABDOMEN: Soft, non-tender. Examination of lower extremities shows no significant edema. EBD TEACHER exam is grossly intact. Labs show sodium 141, potassium 4.4, BUN 113, serum creatinine 2.9, hemoglobin of 10.0 g/dL. ASSESSMENT: 1. Acute kidney injury, cardiorenal, which had improved. Serum creatinine is again elevated, mainly related to recent diuresis. I will hold off on the Demadex and will give her normal saline for about 6-8 hours today. 2. Metabolic alkalosis secondary to diuresis, currently improved. Patient is maintained on Diamox as well. 3. Severe volume overload, now improved significantly. 4. Positive stool for occult blood, status post esophagogastroduodenoscopy which showed moderate gastritis. No active bleeding was noted. 5. Urinary tract infection with urine culture positive for enterobacter and klebsiella, being followed by Infectious Disease and maintained on aztreonam. PLAN: IV saline for 6-8 hours today. Hold off on Demadex. Repeat labs in a.m. MMODL / IJN: [id number] /
[2018-07-15] MEDS: ARIPiprazole 2 MG TAB PO SCH (21:38)
[2018-07-16] MEDS: CLOTRIMAZOLE TROCHE 10 MG TROCHE MUCOUS MEM SCH ×5 (00:54→20:26)
[2018-07-16] MEDS: LEVOTHYROXINE 50 MCG TAB PO SCH (05:42)
[2018-07-16] MEDS: ESCITALOPRAM 20 MG TAB PO SCH (09:41)
[2018-07-16] MEDS: FAMOTIDINE 20 MG TAB PO SCH (09:41)
[2018-07-16] MEDS: AZTREONAM 1 GM in SODIUM CHLORIDE 0.9% 50 ML IVPB SCH ×2 (09:41→20:26)
[2018-07-16] MEDS: predniSONE 20 MG TAB PO SCH (09:41)
[2018-07-16] MEDS: acetaZOLAMIDE 250 MG TAB PO SCH ×2 (09:42→21:46)
--- NOTE | 2018-07-16 09:42 | P.PN ---
Subjective Progress Note Date: 07/16/18 Treasure has no specific complaints. Not much of an appetite. Started IVFs yesterday for intravascular depletion related to diuretic therapy for Cardiorenal syndrome. Labs pending for this morning. Objective - Vital Signs Vital signs: Vital Signs Temp 97.9 F 07/16/18 07:13 Pulse 67 07/16/18 07:13 Resp 15 07/16/18 07:13 BP 107/58 07/16/18 07:13 Pulse Ox 99 07/16/18 07:13 Intake & Output 07/15/18 07/16/18 07/16/18 18:59 06:59 18:59 Intake Total 425 Output Total 1400 Balance -975 Weight 70.4 kg Intake: Intake, IV Titration 425 Amount Sodium Chloride 0.9% 1, 425 000 ml @ 50 mls/hr IV . Q20H [facility] Rx#:[id number] Output: Urine 1400 Other: Voiding Method Indwelling Catheter Indwelling Catheter - Constitutional General appearance: Present: no acute distress - Respiratory Respiratory: bilateral: CTA - Cardiovascular Rhythm: regular Heart sounds: normal: S1, S2 - Gastrointestinal General gastrointestinal: Present: normal bowel sounds, soft - Psychiatric Psychiatric: Present: A&O x's 3 - Labs CBC & Chem 7: 07/15/18 08:23 07/15/18 08:23 Labs: Microbiology - Last 24 Hours (Table) 07/14/18 17:27 Urine Culture - Preliminary Urine,Catheterized Gram Neg Bacilli Assessment and Plan Assessment: 1. Nonoliguric Sania secondary to Cardiorenal syndrome but with worsening renal function secondary to diuretics. - - IVFs given yesterday. - - AM labs pending. 2. Stage 3 CKD with baseline creatinine 1.6. 3. Bilateral Hydronephrosis with bilateral ureteral stents. 4. Metabolic Alkalosis secondary to diuretics - - improved. On diamox. 5. Hypotension - - on midodrine BP stable. 6. Anemia multifactoral - - On Aranesp. 7. Enterobacter and Klebsiella UTI - on meropenem. King was changed Plan: 1. Continue to hold diuretics. 2. Received IVFs, awaiting am labs. 3. Continue Diamox. Can likely discontinue if drop below 40.
[2018-07-16] MEDS: HYDROcodone/APAP 10-325MG 1 EACH TAB PO PRN (09:47)
[2018-07-16 10:17] LABS: Calcium 8.4 mg/dL (8.4-10.2); Potassium 3.5 mmol/L (3.5-5.1)
--- NOTE | 2018-07-16 11:42 | P.PN ---
Subjective Progress Note Date: 07/16/18 Principal diagnosis: GI bleed Status post EGD findings of moderate gastritis mild duodenitis small hiatal hernia and no active bleeding. Presently no complaints. Denies hematemesis hematochezia melena. Tolerating diet. Creatinine remains at 2.9. Objective - Vital Signs Vital signs: Vital Signs Temp 97.9 F 07/16/18 07:13 Pulse 67 07/16/18 07:13 Resp 15 07/16/18 07:13 BP 107/58 07/16/18 07:13 Pulse Ox 99 07/16/18 07:13 Intake & Output 07/15/18 07/16/18 07/16/18 18:59 06:59 18:59 Intake Total 425 Output Total 1400 Balance -975 Weight 70.4 kg Intake: Intake, IV Titration 425 Amount Sodium Chloride 0.9% 1, 425 000 ml @ 50 mls/hr IV . Q20H [facility] Rx#:[id number] Output: Urine 1400 Other: Voiding Method Indwelling Catheter Indwelling Catheter - Exam General appearance: The patient is alert, oriented, in no acute distress. HET: Head is normocephalic and atraumatic. Pupils are equal and reactive. Oropharynx is clear without lesions. Neck: Supple without lymphadenopathy. Trachea midline. Heart: S1 S2. Regular rate and rhythm. Lungs: No crackles or wheezes are heard. Abdomen: Soft, nontender, nondistended with bowel sounds. No peritoneal signs. No palpable organomegaly or masses. Extremities: Normal skin color and turgor. No cyanosis, rash, ulceration, clubbing, or edema. Radial and pedal pulses are 2/4 bilaterally. Neurological: No focal deficits. Strength and sensation are grossly intact. - Labs CBC & Chem 7: 07/15/18 08:23 07/16/18 09:07 Labs: Microbiology - Last 24 Hours (Table) 07/14/18 17:27 Urine Culture - Preliminary Urine,Catheterized Gram Neg Bacilli Assessment and Plan Assessment: Impression: 1. Acute upper GI bleed status post EGD for evaluation of coffee-ground emesis no evidence of peptic ulcer disease or active bleeding possible Ruth-Tejada tear. EGD findings of mild duodenitis moderate gastritis and small hiatal hernia. Hemoglobin stable 10.0. 2. cute kidney injury superimposed on chronic kidney disease. Bilateral hydronephrosis status post ureteral stent placement a few months ago with exchange last week. BUN/creatinine elevated slightly worse today. Nephrology following closely. Underlying history of interstitial nephritis presently on prednisone therapy. Plan: 1. Continue with diet as tolerated. Continue present medical therapy. Continue with Pepcid 20 mg daily. CBC monitoring. Assessment and plan a care discussed with Dr. Nielsen
[2018-07-16 13:57] VITALS: BMI 22.8
--- NOTE | 2018-07-16 14:52 | PN ---
PROGRESS NOTE DATE OF SERVICE: 07/16/2018 REASON FOR FOLLOWUP: Catheter associated urinary tract infection. INTERVAL HISTORY: The patient is currently afebrile. The patient is breathing comfortably. Denies having any chest pain or some cough. Abdominal pain has improved. No nausea, vomiting and no diarrhea. PHYSICAL EXAMINATION: Blood pressure 107/58 with a pulse of 57, temperature 97.9, he is 99% on 2 L nasal cannula. General description is an elderly female up in the chair in no distress. RESPIRATORY SYSTEM: Unlabored breathing, clear to auscultation anteriorly. HEART: S1, S2. Regular rate and rhythm. ABDOMEN: Soft, no tenderness. LABS: Hemoglobin is 10, white count of 9.3 with a BUN of 107, creatinine 2.96. Repeat urine after change of King catheter showing gram-negative bacilli. DIAGNOSTIC IMPRESSION AND PLAN: Patient with Enterobacter and Klebsiella positive culture with urine culture still positive. We are waiting for the sensitivity to finalize to determine discharge antibiotics. Currently on Azactam to continue for now. Continue supportive care. MMODL / IJN: [id number] /
[2018-07-16] MEDS: SENNOSIDES-DOCUSATE SODIUM 1 EACH TAB PO SCH ×2 (16:44→20:26)
[2018-07-16] MEDS: CHOLECALCIFEROL 1,000 UNIT TAB PO SCH (16:44)
[2018-07-16] MEDS: ASPIRIN 81 MG PO SCH (16:44)
--- NOTE | 2018-07-16 17:49 | P.PN ---
Subjective Progress Note Date: 07/16/18 This is a 67-year-old female presented to the ER as advised by PCP with significant bilateral leg edema, approximate 40 pound weight gain in 2-1/2 weeks, shortness of breath with exertion and laying flat, acute on chronic renal failure in a patient who recently had renal stents replaced 2 weeks ago. Repo rts had nausea vomiting and diarrhea at home, diarrhea has subsided. This morning he had nausea with dry heaving, received Zofran. Reports incontinent of urine for the last 7-8 months. Denies chest pain. Denies history of CHF. Abdominal x-ray nonspecific, renal ultrasound reporting bilateral hy dronephrosis. EKG sinus rhythm. Echo pending. Creatinine 3.26 on admission up to 3.37. Hemoglobin 8.5, on admission, down to 7.6. Denies chest pain, palpitations. Complains of right-sided mid to lower quadrant abdominal pain that radiates to the back. Patient recently completed IV antibiotic therapy of Invanz for [id number] E. coli UTI, with PICC line discontinued this past Saturday. States she has been dealing with recurrent bladder infections for over 1 year. On 06/11/2018 patient was 72.4 kg, now 92.53 on admission. Afebrile, WBC 4.4.systolic blood pressures 90s to 110s. 07/02/2018 Maintained on IV push Lasix, I&O inaccurate secondary to incontinence. Reweighed this afternoon on standing scale, 92.2 kg, 92.5 kg on admission. Echo reporting normal LV function, 55-60%. Magnesium 1.1, receiving supplements. CT of abdomen ordered by urology, pending. Creatinine worsening, 3.73. Significant bilateral lower extremity edema persists, mildly improved. Denies chest pain, palpitations or increased shortness of breath. 07/03/2018 maintained on diuretics as per nephrology. Renal function continues worsening up to 3.88. Inaccurate I& O secondary to incontinence. Bilateral lower extremity edema slowly improving. Abdomen increasing firmness. Complains of nausea. Denies chest pain, palpitations. No increasing shortness of breath except when laying flat, or with minimal exertion. Bilateral hydronephrosis reported on computed tomography scan with bilateral ureteral stents present. 07/04/2018 King catheter inserted yesterday for strict I&O's; diuresing well on Lasix IV push with 24-hour I&O reflecting a negative fluid balance, significant edema present-improving. Case discussed with urology yesterday afternoon, patient is scheduled for stent exchange today. Creatinine 3.85( 3.88 yesterday). Abdomen distended, firm. Complains of right abdominal quadrant tenderness extending to right flank -unchanged, mild increased shortness of breath. Currently wearing 2 L nasal cannula. maintaining O2 sats of flow 90s. Denies chest pain, palpitations. Afebrile, T-max 99, normal WBC. Urine culture negative. 07/09/2018 diuresing well, maintained on Lasix drip, with 24-hour I&O reflecting a negative fluid balance. Bilateral leg edema, significant, slowly improving. Orthopnea and exertional shortness of breath persists. Maintaining O2 sats in the 90s on room air. Renal function continues to improve, down to 2.87. Status post bilateral ureteral stents exchanged on 07/04/2018. Maintained on prednisone for potential ALLERGIC interstitial nephritis. Afebrile, previous Urine culture negative, current UA reporting large leukocytes, high WBCs, many bacteria. 07/10/2018 significant bilateral leg edema continues to slowly improve .Diures ing well on Lasix drip with 24-hour I&O reflecting a negative fluid balance. Diamox added to med regime as per nephrology. Creatinine continues to improve, currently 2.59. Potassium 3.5, receiving supplementation. Afebrile. PT/OT. Up in chair for meals. 07/11/2018 continues on Lasix drip, BUN up to 93, creatinine down to 2.39. Had a rough night, started feeling increased malaise,fatigue after dinner last night. Afebrile. This morning increased nausea, no emesis, diarrhea 4 episodes after breakfast. Denies cough. No chest pain, no palpitations no increased shortness of breath. 07/14/2018 NPO, scheduled for EGD. Yesterday had positive Hemoccult stool ,multiple coffee-ground emesis, subsided. Labs pending. Maintained on IV antibiotics Azactam. King changed with UA/culture repeated as per ID. 07/15/2018 patient underwent EGD yesterday, tolerated procedure well. Reported moderate gastritis, biopsies obtained, mild duodenitis, small hiatal hernia, no active bleeding. Hemoglobin 10. Patient is status post Lasix drip, on Diamox with Demadex decreased yesterday as per nephrology. Significant improvement in bilateral leg edema. Creatinine worsening, up to 2.92 with BUN of 113. Good diet intake, reports nausea, no emesis. She reports multiple episodes of diarrhea throughout the night and early this morning. Formed stools yesterday as reported per staff. Continues to have persistent right flank pain that radiates to lower mid back. King catheter changed with UA/urine culture repeated. UA repeating large leukocytes, moderate WBCs, culture results pending. Afebrile, normal WBC. 07/16/2018 repeat urine culture post King catheter change, reporting gram- negative bacilli, final results pending. T9 IV antibiotics as per infectious disease. No active bleeding. Creatinine 2.9. Diet intake improving. Denies nausea, vomiting or diarrhea. Eyes chest pain, palpitations or increasing shortness of breath. Objective - Vital Signs Vital signs: Vital Signs Temp 97.9 F 07/16/18 07:13 Pulse 67 07/16/18 07:13 Resp 15 07/16/18 07:13 BP 107/58 07/16/18 07:13 Pulse Ox 99 07/16/18 07:13 Intake & Output 07/15/18 07/16/18 07/16/18 18:59 06:59 18:59 Intake Total 425 Output Total 1400 Balance -975 Weight 70.4 kg Intake: Intake, IV Titration 425 Amount Sodium Chloride 0.9% 1, 425 000 ml @ 50 mls/hr IV . Q20H [facility] Rx#:[id number] Output: Urine 1400 Other: Voiding Method Indwelling Catheter Indwelling Catheter - Exam PHYSICAL EXAM: VITAL SIGNS: As above GENERAL: Sitting up in bed, no acute distress HEENT: Conjunctivae normal. eyes normal. Oral mucosa moist NECK: No JVD. Trachea midline, No thyroid enlargement. No LNs CARDIOVASCULAR: S1, S2 regular, No murmur RESPIRATION: Nonlabored, essentially clear with bilateral bases diminished No rhonchi ,crackles or wheezing. ABDOMEN: Softer, nondistended, nontender. No guarding. no masses palpable. Bowel sounds heard. LEGS: significant improvement in bilateral lower extremity edema, radial/pedal pulses bilaterally present PSYCHIATRY: Alert and oriented -3, mood and affect normal. NERVOUS SYSTEM: Cranial N 2-12 grossly normal. Diffuse weakness No focal deficits, sensation grossly intact. Microbiology 07/14/18 17:27 Urine,Catheterized Urine Culture - Preliminary Gram Neg Bacilli 07/11/18 10:35 Urine,Catheterized Urine Culture - Final Enterobacter cloacae Klebsiella oxytoca 07/10/18 09:00 Urine,Catheterized Urine Culture - Final Enterobacter cloacae 07/02/18 14:15 Urine,Voided Urine Culture - Final - Labs CBC & Chem 7: 07/15/18 08:23 07/16/18 09:07 Labs: Microbiology - Last 24 Hours (Table) 07/14/18 17:27 Urine Culture - Preliminary Urine,Catheterized Gram Neg Bacilli Assessment and Plan Assessment: -Fluid overload related to obstructive uropathy without evidence of nephrotic syndrome. Significant bilateral leg edema, improving. Echo reporting normal LV function. -Acute on chronic renal failure, stage III. Acute secondary to obstructive uropathy, and diuresing. Chronic secondary to nephrosclerosis. Baseline 1.3 -Possible acute interstitial nephritis, in a patient with history of, on jose roids as per nephrology -Bilateral hydronephrosis in a patient with recent bilateral ureteral stent replacements. Status post bilateral ureteral stent exchange 07/04/2018. -Acute upper GI bleed, coffee-ground emesis, status post EGD reporting no active bleed, possible Ruth-Tejada tear, moderate gastritis, mild duodenitis and small hiatal hernia. -Anemia of chronic disease, secondary to renal failure, iron deficiency. -Metabolic acidosis secondary to acute renal failure, resolved -Acute UTI with Enterobacter Clocae & Klebsiella Oxytoca, in a patient with Recurrent UTIs, recently treated for multidrug resistant E. 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 Maintain IV antibiotics as per ID. final repeat urine culture results pending. Discharge planning in progress for tomorrow pending both ID and nephrology clearance. The impression and plan of care has been dictated as directed. : I performed a history and examination of this patient, discussed the same with the dictator. I agree with the dictator's note ,documented as a scribe. Any additional findings or plans will be noted. Time taken: 35 minutes
[2018-07-16] MEDS: ARIPiprazole 2 MG TAB PO SCH (20:15)
[2018-07-16] MEDS: SODIUM CHLORIDE 0.9% 1,000 ML IV SCH (20:27)
[2018-07-17] MEDS: CLOTRIMAZOLE TROCHE 10 MG TROCHE MUCOUS MEM SCH ×5 (00:19→19:53)
[2018-07-17] MEDS: LEVOTHYROXINE 50 MCG TAB PO SCH (05:59)
[2018-07-17] MEDS: AZTREONAM 1 GM in SODIUM CHLORIDE 0.9% 50 ML IVPB SCH (09:26)
[2018-07-17] MEDS: ESCITALOPRAM 20 MG TAB PO SCH (09:27)
[2018-07-17] MEDS: SENNOSIDES-DOCUSATE SODIUM 1 EACH TAB PO SCH ×2 (09:27→19:53)
[2018-07-17] MEDS: predniSONE 20 MG TAB PO SCH (09:27)
[2018-07-17] MEDS: FAMOTIDINE 20 MG TAB PO SCH (09:27)
[2018-07-17] MEDS ORDERED: ERTAPENEM 0.5 GM in SODIUM CHLORIDE 0.9% 50 ML IVPB STA (11:33)
[2018-07-17 12:08] LABS: Anisocytosis Slight; HCT 31.1 % (34.0-46.0); HGB 9.1 gm/dL (11.4-16.0); Hypochromasia Marked; MCH 28.2 pg (25.0-35.0); MCHC 29.4 g/dL (31.0-37.0); MCV 96.2 fL (80.0-100.0); Macrocytosis Slight; Mean Platelet Volume 8.6; Platelet Count 183 k/uL (150-450); RBC 3.23 m/uL (3.80-5.40); RDW 18.3 % (11.5-15.5)
[2018-07-17 12:28] LABS: Calcium 8.7 mg/dL (8.4-10.2)
[2018-07-17] MEDS: DARBEPOETIN ALFA 40 MCG/0.4 ML SYRINGE SQ SCH (12:53)
--- NOTE | 2018-07-17 13:14 | P.DS ---
Providers Date of admission: 06/30/18 15:48 Expected date of discharge: 07/17/18 Attending physician: Miles Collado Consults: 06/30/18 15:34 Consult Physician Urgent Consulting Provider: Nando Colby Consult Reason/Comments: edema Do you want consulting provider notified?: Yes Consult Physician Urgent Consulting Provider: Dorian Contreras Consult Reason/Comments: Renal insufficiency, ureteral stents Do you want consulting provider notified?: Yes 06/30/18 16:25 Consult Physician Routine Consulting Provider: Darcie Sawant Consult Reason/Comments: 50 pound weight gain 2 weeks Do you want consulting provider notified?: Yes 07/01/18 08:18 Consult Physician Routine Consulting Provider: Andrae Cruz Consult Reason/Comments: anemia Do you want consulting provider notified?: Yes 07/13/18 14:06 Consult Physician Stat Consulting Provider: Rex Epps Consult Reason/Comments: infection Do you want consulting provider notified?: Yes Primary care physician: [facility] Course: Final Diagnoses: -Fluid overload related to obstructive uropathy without evidence of nephrotic syndrome. Significant bilateral leg edema, improving. Echo reporting normal LV function. -Acute on chronic renal failure, stage III. Acute secondary to obstructive uropathy, and diuresing. Chronic secondary to nephrosclerosis. Baseline 1.3 -Possible acute interstitial nephritis, in a patient with history of, steroid taper as per nephrology -Bilateral hydronephrosis in a patient with recent bilateral ureteral stent replacements. Status post bilateral ureteral stent exchange 07/04/2018. -Acute upper GI bleed, coffee-ground emesis, status post EGD reporting no active bleed, possible Ruth-[place] tear, moderate gastritis, mild duodenitis and small hiatal hernia. -Anemia of chronic disease, secondary to renal failure, iron deficiency. -Metabolic acidosis secondary to acute renal failure, resolved -Acute UTI with Enterobacter Clocae & Klebsiella Oxytoca, in a patient with Recurrent UTIs, recently treated for multidrug resistant E. coli UTI. Repeat urine culture reporting Enterobacter cloacae. -History of nonalcoholic cirrhosis -Clotting disorder, not factor V -Hypertension -Depression -Melanoma, uterine cancer, Lung Ca, breast cancer -History of DVT Hospital course:This is a 67-year-old female presented to the ER as advised by PCP with significant bilateral leg edema, approximate 40 pound weight gain in 2- 1/2 weeks, shortness of breath with exertion and laying flat, acute on chronic renal failure in a patient who recently had renal stents replaced 2 weeks ago. Reports had nausea vomiting and diarrhea at home, diarrhea has subsided. This morning he had nausea with dry heaving, received Zofran. Reports incontinent of urine for the last 7-8 months. Denies chest pain. Denies history of CHF. Abdominal x-ray nonspecific, renal ultrasound reporting bilateral hydronephrosis. EKG sinus rhythm. Echo pending. Creatinine 3.26 on admission up to 3.37. Hemoglobin 8.5, on admission, down to 7.6. Denies chest pain, palpitations. Complains of right-sided mid to lower quadrant abdominal pain that radiates to the back. Patient recently completed IV antibiotic therapy of Invanz for [id number] E. coli UTI, with PICC line discontinued this past Saturday. States she has been dealing with recurrent bladder infections for over 1 year. On 06/11/2018 patient was 72.4 kg, now 92.53 on admission. Afebrile, WBC 4.4.systolic blood pressures 90s to 110s. 07/02/2018 Maintained on IV push Lasix, I&O inaccurate secondary to incontinence. Reweighed this afternoon on standing scale, 92.2 kg, 92.5 kg on admission. Echo reporting normal LV function, 55-60%. Magnesium 1.1, receiving supplements. CT of abdomen ordered by urology, pending. Creatinine worsening, 3.73. Significant bilateral lower extremity edema persists, mildly improved. Denies chest pain, palpitations or increased shortness of breath. 07/03/2018 maintained on diuretics as per nephrology. Renal function continues worsening up to 3.88. Inaccurate I& O secondary to incontinence. Bilateral lower extremity edema slowly improving. Abdomen increasing firmness. Complains of nausea. Denies chest pain, palpitations. No increasing shortness of breath except when laying flat, or with minimal exertion. Bilateral hydronephrosis reported on computed tomography scan with bilateral ureteral stents present. 07/04/2018 King catheter inserted yesterday for strict I&O's; diuresing well on Lasix IV push with 24-hour I&O reflecting a negative fluid balance, significant edema present-improving. Case discussed with urology yesterday afternoon, patient is scheduled for stent exchange today. Creatinine 3.85( 3.88 yesterday). Abdomen distended, firm. Complains of right abdominal quadrant tenderness extending to right flank -unchanged, mild increased shortness of breath. Currently wearing 2 L nasal cannula. maintaining O2 sats of flow 90s. Denies chest pain, palpitations. Afebrile, T-max 99, normal WBC. Urine culture negative. 07/09/2018 diuresing well, maintained on Lasix drip, with 24-hour I&O reflecting a negative fluid balance. Bilateral leg edema, significant, slowly improving. Orthopnea and exertional shortness of breath persists. Maintaining O2 sats in the 90s on room air. Renal function continues to improve, down to 2.87. Status post bilateral ureteral stents exchanged on 07/04/2018. Maintained on prednisone for potential ALLERGIC interstitial nephritis. Afebrile, previous Urine culture negative, current UA reporting large leukocyt es, high WBCs, many bacteria. 07/10/2018 significant bilateral leg edema continues to slowly improve .Diuresing well on Lasix drip with 24-hour I&O reflecting a negative fluid balance. Diamox added to med regime as per nephrology. Creatinine continues to improve, currently 2.59. Potassium 3.5, receiving supplementation. Afebrile. PT/OT. Up in chair for meals. 07/11/2018 continues on Lasix drip, BUN up to 93, creatinine down to 2.39. Had a rough night, started feeling increased malaise,fatigue after dinner last night. Afebrile. This morning increased nausea, no emesis, diarrhea 4 ep isodes after breakfast. Denies cough. No chest pain, no palpitations no increased shortness of breath. 07/14/2018 NPO, scheduled for EGD. Yesterday had positive Hemoccult stool ,multiple coffee-ground emesis, subsided. Labs pending. Maintained on IV antibiotics Azactam. King changed with UA/culture repeated as per ID. 07/15/2018 patient underwent EGD yesterday, tolerated procedure well. Reported moderate gastritis, biopsies obtained, mild duodenitis, small hiatal hernia, no active bleeding. Hemoglobin 10. Patient is status post Lasix drip, on Diamox with Demadex decreased yesterday as per nephrology. Significant improvement in bilateral leg edema. Creatinine worsening, up to 2.92 with BUN of 113. Good diet intake, reports nausea, no emesis. She reports multiple episodes of diarrhea throughout the night and early this morning. Formed stools yesterday as reported per staff. Continues to have persistent right flank pain that radiates to lower mid back. King catheter changed with UA/urine culture repeated. UA repeating large leukocytes, moderate WBCs, culture results pending. Afebrile, normal WBC. 07/16/2018 repeat urine culture post King catheter change, reporting gram- negative bacilli, final results pending. IV antibiotics as per infectious disease. No active bleeding. Creatinine 2.9. Diet intake improving. Denies nausea, vomiting or diarrhea. Eyes chest pain, palpitations or increasing shortness of breath. 07/17/2017 repeat urine culture reporting Enterobacter cloacae. DC antibiotics as per infectious disease. Significant clinical improvement. Patient will be discharged to [facility] subacute rehab in stable condition with guarded prognosis pending nephrology's clearance. EXAM: GENERAL: alert & oriented x 3 no acute distress CARDIOVASCULAR: S1, S2 regular, No murmur RESPIRATION: Nonlabored, essentially clear with bilateral bases diminished No rhonchi ,crackles or wheezing. ABDOMEN: Softer, nondistended, nontender. No guarding. no masses palpable. Bowel sounds heard. LEGS: significant improvement in bilateral lower extremity edema, radial/pedal pulses bilaterally present NERVOUS SYSTEM: Cranial N 2-12 grossly normal. Diffuse weakness No focal deficits, sensation grossly intact. The impression and plan of care has been dictated as directed. : I performed a history and examination of this patient, discussed the same with the dictator. I agree with the dictator's note ,documented as a scribe. Any additional findings or plans will be noted. Time taken: 35 minutes Patient Condition at Discharge: Stable Plan - Discharge Summary New Discharge Prescriptions: New Darbepoetin Mike [Aranesp] 40 mcg SQ Q7D syringe Clotrimazole Gloria [Mycelex Gloria] 10 mg MUCOUS MEM 5XD gloria Famotidine [Pepcid] 20 mg PO DAILY tab Midodrine [ProAmatine] 5 mg PO AC-TID PRN tab PRN Reason: Hypotension Sennosides-Docusate Sodium [Senokot-S] 2 each PO BID tab Ertapenem [INVanz] 0.5 gm IVPB Q24H #7 bag Continue Levothyroxine Sodium [Synthroid] 50 mcg PO DAILY@0600 Escitalopram Oxalate [Lexapro] 20 mg PO DAILY Cholecalciferol [Vitamin D3 (25 Mcg = 1000 Iu)] 2,000 unit PO DAILY@1700 Aspirin EC [Ecotrin] 325 mg PO DAILY@1700 ARIPiprazole [Abilify] 2 mg PO HS Discontinued Furosemide [Lasix] 20 mg PO DAILY@0600 Discharge Medication List Levothyroxine Sodium [Synthroid] 50 mcg PO DAILY@0600 07/04/17 [History] Escitalopram Oxalate [Lexapro] 20 mg PO DAILY 07/06/17 [History] Cholecalciferol [Vitamin D3 (25 Mcg = 1000 Iu)] 2,000 unit PO DAILY@1700 07/22/17 [History] Aspirin EC [Ecotrin] 325 mg PO DAILY@1700 08/30/17 [History] ARIPiprazole [Abilify] 2 mg PO HS 06/04/18 [History] Clotrimazole Gloria [Mycelex Gloria] 10 mg MUCOUS MEM 5XD gloria 07/17/18 [Rx] Darbepoetin Mike [Aranesp] 40 mcg SQ Q7D syringe 07/17/18 [Rx] Ertapenem [INVanz] 0.5 gm IVPB Q24H #7 bag 07/17/18 [Rx] Famotidine [Pepcid] 20 mg PO DAILY tab 07/17/18 [Rx] Midodrine [ProAmatine] 5 mg PO AC-TID PRN tab 07/17/18 [Rx] Sennosides-Docusate Sodium [Senokot-S] 2 each PO BID tab 07/17/18 [Rx] Follow up Appointment(s)/Referral(s): Andrae Cruz MD [STAFF PHYSICIAN] - 07/24/18 2:45 pm Miles Collado MD [Primary Care Provider] - [facility], [NON-STAFF] - As Needed [facility], [REFERRING] - As Needed Dorian Contreras MD [STAFF PHYSICIAN] - 07/22/18 8:40 am Patient Instructions/Handouts: Pressure Injury (DC), Urethral Stent Placement (DC) Activity/Diet/Wound Care/Special Instructions: Regular diet Elevate legs at rest, activity as tolerated, fall precautions. Stay off wounds on coccyx. Change positions every 2 hours while awake. Care Plan Goals (MU): [facility] Antibx as per ID Prednisone taper, diuretic recomendations & final clearance as perp nephrology. Diet:Cardiac Activity: as tolerated cbc,bmp in 3 days Discharge Disposition: TRANSFER TO SNF/ECF
--- NOTE | 2018-07-17 14:21 | PN ---
PROGRESS NOTE DATE OF SERVICE: 07/17/2018 REASON FOR FOLLOWUP: Catheter-associated urinary tract infection. INTERVAL HISTORY: The patient is currently afebrile. Patient is breathing comfortably. Denies significant chest pain or cough. No worsening abdominal pain. No nausea, no vomiting. PHYSICAL EXAMINATION: Her blood pressure is 104/63 with a pulse of 104, temperature 97.6. General description is an elderly female, lying in bed in no distress. RESPIRATORY SYSTEM: Unlabored breathing, clear to auscultation anteriorly. HEART: S1, S2. Regular rate and rhythm. ABDOMEN: Soft, nontender. LABS: Hemoglobin 9.1, white count 12.0. Creatinine is 2.30. Repeat urine has been followed as Enterobacter cloaca. DIAGNOSTIC IMPRESSION AND PLAN: Patient with back weakness with urinary tract infection. The patient who did have multiple antibiotic allergies have previous tolerated Invanz was switched over antibiotic therapy to Invanz 500 mg daily for 7 days to finish a course of therapy with close outpatient followup. MMODL / IJN: [id number] /
[2018-07-17] MEDS: ASPIRIN 81 MG PO SCH (17:11)
[2018-07-17] MEDS: CHOLECALCIFEROL 1,000 UNIT TAB PO SCH (17:12)
--- NOTE | 2018-07-17 17:12 | PN ---
PROGRESS NOTE Patient is seen for followup for acute kidney injury and chronic kidney disease. Patient is status post diuresis for volume overload. Renal function is fairly stable, slightly improved. Serum creatinine is down to 2.3 from 2.9 yesterday. There are plans for possible discharge today to [facility]. Patient's daughter noticed that she has had some change in her mentation, and she felt that this happened previously when patient received any medication for nausea. At this time she has not received any Zofran or Compazine. She did get [place] earlier. Diamox was discontinued yesterday. Patient continues to have good urine output. Her weight is down to about 63.9. On examination, blood pressure this morning was 97/55, heart rate 80 per minute. EXAMINATION OF THE HEART: S1 and S2. EXAMINATION OF LUNGS: Bilateral breath sounds are heard. Decreased breath sounds at the bases. ABDOMEN: Soft, non-tender. Examination of lower extremities shows no evidence of edema. [employer]ODU[employer] G[employer]ER exam is grossly intact. Patient moving all 4 extremities. She does seem confused at times. Labs show sodium 140, potassium 3.0, BUN 104, serum creatinine 2.3. ASSESSMENT: 1. Acute kidney injury, acute tubular necrosis, currently improved. 2. Underlying obstructive uropathy, status post bilateral ureteral stent exchange recently. Baseline creatinine about 1.7 to 1.6 mg/dL. 3. Sepsis from urinary tract infection. Urine culture grew Enterobacter cloacae and Klebsiella oxytoca. 4. Hypokalemia secondary to decreased oral intake and recent diuresis. We will replace. 5. Metabolic alkalosis, status post Diamox, which was discontinued yesterday. 6. Anemia of chronic disease, maintained on Aranesp. PLAN: Replace potassium. Maintain patient on a small dose of Demadex at 10 mg at the time of discharge. She will need close followup as outpatient along with repeat renal profile in about 2-3 days. MMODL / IJN: [id number] /
[2018-07-17] MEDS: SODIUM CHLORIDE 0.9% 1,000 ML IV SCH (19:53)
[2018-07-17 20:57] VITALS: RESP 16
[2018-07-17] MEDS: ARIPiprazole 2 MG TAB PO SCH (23:31)
[2018-07-18] MEDS: CLOTRIMAZOLE TROCHE 10 MG TROCHE MUCOUS MEM SCH ×3 (00:06→10:11)
[2018-07-18] MEDS: LEVOTHYROXINE 50 MCG TAB PO SCH (06:01)
[2018-07-18 08:23] VITALS: BP 109/68; PULSE 63; TEMP 98.8
[2018-07-18] MEDS: predniSONE 20 MG TAB PO SCH (10:00)
[2018-07-18] MEDS: FAMOTIDINE 20 MG TAB PO SCH (10:01)
[2018-07-18] MEDS: SENNOSIDES-DOCUSATE SODIUM 1 EACH TAB PO SCH (10:01)
[2018-07-18] MEDS: ESCITALOPRAM 20 MG TAB PO SCH (10:01)
--- NOTE | 2018-07-18 19:38 | PN ---
PROGRESS NOTE Patient is seen for followup for acute kidney injury on top of chronic kidney disease. Patient was significantly volume-overloaded and was maintained on Lasix drip, which was then discontinued. She did receive IV fluids overnight. Renal function has stabilized, creatinine staying at about 2.3 mg/dL. There were issues with confusion on and off. On examination today, blood pressure was 109/68, heart rate 63 per minute. She is afebrile. EXAMINATION OF THE HEART: S1 and S2. EXAMINATION OF LUNGS: Decreased breath sounds at bases. ABDOMEN: Soft, non-tender. Examination of lower extremities shows no significant edema. FRONT END DEVELOPER exam shows patient is moving all 4 extremities. Labs are not available from today. Yesterday BUN was 104, serum creatinine 2.3 mg/dL. ASSESSMENT: 1. Acute kidney injury, acute tubular necrosis and cardiorenal, currently improved. 2. Chronic obstructive uropathy, status post recent change of bilateral stents. 3. Hypotension, maintained on midodrine. 4. Urinary tract infection with Enterobacter cloacae and Klebsiella oxytoca, status post antibiotics. 5. Anemia, maintained on Aranesp. 6. Hypokalemia. I do not have any labs from today. We will make sure her potassium was supplemented, as it was 3.0 yesterday. PLAN: Wean down steroids. Monitor labs as outpatient and follow up for CKD as outpatient. MMODL / IJN: [id number] /
== END 2018-07-18 11:37 | DRG 659 ==
LOC: EC 10:34 → 4SSUR 15:48
PROVIDERS: ADMIT Family Medicine; ATTEND Family Medicine
PROC: 0T788DZ Dilation of Bilateral Ureters with Intraluminal Device, Via Natural or Artificial Opening Endoscopic (ICD-10-PCS; 2018-07-04)
PROC: 0TP98DZ Removal of Intraluminal Device from Ureter, Via Natural or Artificial Opening Endoscopic (ICD-10-PCS; principal; 2018-07-04 07:30)
PROC: 0DB98ZX Excision of Duodenum, Via Natural or Artificial Opening Endoscopic, Diagnostic (ICD-10-PCS; 2018-07-14)
PROC: 0DB78ZX Excision of Stomach, Pylorus, Via Natural or Artificial Opening Endoscopic, Diagnostic (ICD-10-PCS; 2018-07-14)
DX: T83.518A Infection and inflammatory reaction due to other urinary catheter, initial encounter (principal); N17.0 Acute kidney failure with tubular necrosis; K22.6 Gastro-esophageal laceration-hemorrhage syndrome; D62 Acute posthemorrhagic anemia; D68.9 Coagulation defect, unspecified; E87.2 Acidosis; B37.0 Candidal stomatitis; N13.6 Pyonephrosis; B96.20 Unspecified Escherichia coli [E. coli] as the cause of diseases classified elsewhere; B96.1 Klebsiella pneumoniae [K. pneumoniae] as the cause of diseases classified elsewhere; B96.89 Other specified bacterial agents as the cause of diseases classified elsewhere; Z16.24 Resistance to multiple antibiotics; Z85.820 Personal history of malignant melanoma of skin; Z85.42 Personal history of malignant neoplasm of other parts of uterus; Z85.118 Personal history of other malignant neoplasm of bronchus and lung; Z85.3 Personal history of malignant neoplasm of breast; D50.9 Iron deficiency anemia, unspecified; D63.1 Anemia in chronic kidney disease; E83.42 Hypomagnesemia; E03.9 Hypothyroidism, unspecified; E87.6 Hypokalemia; E87.70 Fluid overload, unspecified; F32.9 Major depressive disorder, single episode, unspecified; I13.10 Hypertensive heart and chronic kidney disease without heart failure, with stage 1 through stage 4 chronic kidney disease, or unspecified chronic kidney disease; Z86.718 Personal history of other venous thrombosis and embolism; I89.0 Lymphedema, not elsewhere classified; K21.9 Gastro-esophageal reflux disease without esophagitis; Z86.19 Personal history of other infectious and parasitic diseases; K29.70 Gastritis, unspecified, without bleeding; K29.80 Duodenitis without bleeding; K44.9 Diaphragmatic hernia without obstruction or gangrene; Z86.010 Personal history of colon polyps; K74.60 Unspecified cirrhosis of liver; N18.3 Chronic kidney disease, stage 3 (moderate); R32 Unspecified urinary incontinence; T50.2X5A Adverse effect of carbonic-anhydrase inhibitors, benzothiadiazides and other diuretics, initial encounter; Y84.6 Urinary catheterization as the cause of abnormal reaction of the patient, or of later complication, without mention of misadventure at the time of the procedure; Z79.01 Long term (current) use of anticoagulants; Z79.52 Long term (current) use of systemic steroids; Z79.82 Long term (current) use of aspirin; Z79.890 Hormone replacement therapy; Z79.899 Other long term (current) drug therapy; Z82.5 Family history of asthma and other chronic lower respiratory diseases; Z87.19 Personal history of other diseases of the digestive system; Z87.440 Personal history of urinary (tract) infections; Z87.891 Personal history of nicotine dependence; Z88.1 Allergy status to other antibiotic agents; Z90.13 Acquired absence of bilateral breasts and nipples; Z90.710 Acquired absence of both cervix and uterus; Z88.2 Allergy status to sulfonamides; Z88.8 Allergy status to other drugs, medicaments and biological substances; Z88.0 Allergy status to penicillin; Z91.013 Allergy to seafood; T66.XXXS Radiation sickness, unspecified, sequela; Z90.2 Acquired absence of lung [part of]; Z90.49 Acquired absence of other specified parts of digestive tract; F41.9 Anxiety disorder, unspecified; Z91.81 History of falling; Z83.6 Family history of other diseases of the respiratory system
CPT/HCPCS: 36410; 36415; 43239; 71045; 71046; 74018; 74176; 76770; 76937; 80048; 80053; 80074; 81001; 82272; 82550; 82565; 82570; 82607; 82668; 82728; 82746; 82784; 83540; 83550; 83615; 83735; 83880; 83883; 83921; 84156; 84165; 84484; 84520; 85025; 85027; 85045; 85610; 85652; 85730; 86038; 86160; 86162; 86225; 86255; 86334; 86335; 86431; 86850; 86900; 86901; 87077; 87086; 87186; 87205; 87502; 88305; 93005; 93306; 94760; 96374; 99285

== ENCOUNTER 2018-07-21 17:37 | Inpatient (IN) | payer MEDICARE, OTHER ==
[2018-07-21] MEDS ORDERED: PANTOPRAZOLE 40 MG/10 ML VIAL IVP STA (18:14)
[2018-07-21] MEDS ORDERED: MORPHINE SULFATE 4 MG/ML SYRINGE IVP STA (18:30)
[2018-07-21] MEDS ORDERED: ONDANSETRON 4 MG/2 ML VIAL IVP STA (18:30)
--- NOTE | 2018-07-21 18:45 | ED ---
GI Bleed HPI - General Chief complaint: GI Bleed Stated complaint: GI Bleed Time Seen by Provider: 07/21/18 18:05 Source: patient Mode of arrival: EMS Limitations: no limitations - History of Present Illness Initial comments: 67-year-old female patient with past medical history significant for chronic renal failure, anemia of chronic disease, and clotting disorder presents to the emergency department today for evaluation of dark tarry stools. Patient was released from the hospital 3 days ago after being admitted for edema and renal failure both secondary to obstructive uropathy. Patient did have an acute upper GI bleed during her admission. She underwent upper endoscopy with GI and was found to have a possible Ruth Tejada tear, moderate gastritis, and mild duodenitis. She was started on pepcid. Patient states that she has had 4-5 dark tarry stools starting today. Patient states she is having generalized abdominal pain worse in the right lower quadrant. She states she has been nauseated but has not vomited. She denies any fever or chills. She denies any weakness or dizziness. Denies any chest pain or shortness of breath. Patient denies any recent rash, shortness breath, chest pain, diarrhea, constipation, back pain, numbness, tingling, hematuria, dysuria, urinary urgency, urinary frequency, headache, visual changes, or any other complaints. - Related Data Home Medications Medication Instructions Recorded Confirmed Levothyroxine Sodium [Synthroid] 50 mcg PO DAILY@0600 07/04/17 07/21/18 Escitalopram Oxalate [Lexapro] 20 mg PO DAILY 07/06/17 07/21/18 Cholecalciferol [Vitamin D3 (25 2,000 unit PO DAILY@1700 07/22/17 07/21/18 Mcg = 1000 Iu)] Aspirin EC [Ecotrin] 325 mg PO DAILY@1700 08/30/17 07/21/18 ARIPiprazole [Abilify] 2 mg PO HS 06/04/18 07/21/18 Bisacodyl [Dulcolax] 10 mg RECTAL DAILY PRN 07/21/18 07/21/18 Clotrimazole Adela [Mycelex 10 mg PO 5XD PRN 07/21/18 07/21/18 Adela] HYDROcodone/APAP 5-325MG [[place] 1 tab PO Q8H PRN 07/21/18 07/21/18 5-325] Lactose-Reduced Food [Ensure Plus] 237 ml PO TID 07/21/18 07/21/18 Magnesium Hydroxide [Milk of 7,200 mg PO DAILY PRN 07/21/18 07/21/18 Magnesia Concentrate] Na Phos,M-B/Na Phos,Di-Ba [Fleet 133 ml RECTAL DAILY PRN 07/21/18 07/21/18 Adult] predniSONE See Taper PO DIRECTED 07/21/18 07/21/18 Previous Rx's Medication Instructions Recorded Epoetin Mike [Procrit] 10,000 unit SQ DIRECTED #4 vial 07/17/18 Ertapenem [INVanz] 0.5 gm IVPB Q24H #7 bag 07/17/18 Famotidine [Pepcid] 20 mg PO DAILY tab 07/17/18 Midodrine [ProAmatine] 5 mg PO AC-TID PRN tab 07/17/18 Sennosides-Docusate Sodium 2 each PO BID tab 07/17/18 [Senokot-S] Torsemide [Demadex] 10 mg PO DAILY #30 tablet 07/17/18 Allergies Allergy/AdvReac Type Severity Reaction Status Date / Time VANESSA Inhibitors Allergy Unknown Verified 07/21/18 18:22 baclofen Allergy Confusion Verified 07/21/18 18:22 cefepime HCl [From Maxipime] Allergy Rash/Hives Verified 07/21/18 18:22 cephalexin Allergy Rash/Hives Verified 07/21/18 18:22 ciprofloxacin Allergy Rash/Hives Verified 07/21/18 17:50 clindamycin Allergy Nausea & Verified 07/21/18 18:22 Vomiting erythromycin base Allergy Rash/Hives Verified 07/21/18 18:22 heparin Allergy Unknown Verified 07/21/18 18:22 lisinopril [From Zestril] Allergy Unknown Verified 07/21/18 18:22 lorazepam [From Ativan] Allergy Confusion Verified 07/21/18 18:22 metronidazole [From Flagyl] Allergy Nausea & Verified 07/21/18 18:22 Vomiting penicillin G Allergy Rash/Hives Verified 07/21/18 18:22 shellfish derived [Shellfish] Allergy Swelling Verified 07/21/18 18:22 Sulfa (Sulfonamide Allergy Swelling Verified 07/21/18 18:22 Antibiotics) steroids Allergy Unknown Uncoded 07/21/18 17:50 Review of Systems ROS Statement: Those systems with pertinent positive or pertinent negative responses have been documented in the HPI. ROS Other: All systems not noted in ROS Statement are negative. Past Medical History Past Medical History: Blood Disorder, Cancer, Deep Vein Thrombosis (DVT), GI Bleed, Liver Disease, Respiratory Disorder Additional Past Medical History / Comment(s): admit 07/27 for upper GI bleed. 09-10-14 admitted to [facility] with c/o blood in urine and rectal bleeding, DX GI BLEED AND UTI. other hx: Breast Ca x2; Skin Ca squamous and melanoma; uterine ca, lung cancer LOWER LEFT LOBE 70%, c-diff- 6-5-15 snd feb 2017, on xarelto for dvt and portal vein thrombosis. 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 Wound to BACK r/t lung CA, healed 6 months ago History of Any Multi-Drug Resistant Organisms: MRSA Date of last positivie culture/infection: 09/17/17 MDRO Source:: MRSA URINE Past Surgical History: Adenoidectomy, Appendectomy, Breast Surgery, Cholecystectomy, Hysterectomy, Orthopedic Surgery, Tonsillectomy Additional Past Surgical History / Comment(s): Mastectomy bilateral; Left lower lobectomy 70%; exploratory laparotomy, LASER SX AT [facility] FOR MELANOMA- CURRENTLY HAS 100 SPOTS THAT THEY ARE WATCHING REMMOVED 4 SO FAR.lasik eye sx, past "abcess on back(ecoli) pt stated they had to open a channel,removed 2 ribs and some muscle and it was open to drain to 18 months". surgical repair to Right wrist, right femur, and right hip in 2018 Additional Past Anesthesia/Blood Transfusion Reaction / Comment(s): PAST BLOOD TRANSFUSIONS- NO COMPLICATIONS Past Psychological History: Depression Smoking Status: Former smoker Past Alcohol Use History: None Reported Past Drug Use History: None Reported - Past Family History Father Additional Family Medical History / Comment(s): FROM COMPLICATIONS OF SCHRAPNEL IN BODY Mother Additional Family Medical History / Comment(s): STOMACH PROBLEMS, EMPHYSEMA General Exam Limitations: no limitations General appearance: alert, in no apparent distress, other (Social well-d eveloped, well-nourished, pale appearing adult female patient in no acute distress. Vital signs upon presentation are temperature 98.4F, pulse 87, respirations 18, blood pressure 103/57, pulse ox 99% on room air.) Eye exam: Present: normal appearance, PERRL, EOMI. Absent: scleral icterus, conjunctival injection, periorbital swelling ENT exam: Present: normal exam, normal oropharynx, mucous membranes moist Respiratory exam: Present: normal lung sounds bilaterally. Absent: respiratory distress, wheezes, rales, rhonchi, stridor Cardiovascular Exam: Present: regular rate, normal rhythm, normal heart sounds. Absent: systolic murmur, diastolic murmur, rubs, gallop, clicks GI/Abdominal exam: Present: soft, tenderness (Generalized tenderness), normal bowel sounds. Absent: distended, guarding, rebound, rigid Neurological exam: Present: alert, oriented X3, CN II-XII intact Psychiatric exam: Present: normal affect, normal mood Skin exam: Present: warm, dry, intact, normal color. Absent: rash Course Vital Signs 07/21/18 17:40 Temperature 98.4 F Pulse Rate 87 Respiratory 18 Rate Blood Pressure 103/57 O2 Sat by Pulse 99 Oximetry Medical Decision Making - Medical Decision Making 67-year-old female patient with past medical history significant for upper GI bleeding presents to the emergency department today for evaluation of dark tarry stools. Patient did have 4-5 episodes prior to arrival. Labs reviewed and did reveal a hemoglobin of 7.6 which is increased from a test on this morning. Physical examination did reveal some mild generalized upper abdominal tender ness, patient was diagnosed with gastritis and duodenitis earlier last week. Vital signs have been stable while here in the department. She will be admitted to Dr. Collado. We will continue protonix. - Lab Data Result diagrams: 07/21/18 20:00 07/21/18 20:00 Lab Results 07/21/18 07/21/18 07/21/18 Range/Units 20:00 20:00 20:00 WBC 8.6 (3.8-10.6) k/uL RBC 2.74 L (3.80-5.40) m/uL Hgb 7.6 L (11.4-16.0) gm/dL Hct 26.8 L (34.0-46.0) % MCV 98.1 (80.0-100.0) fL MCH 27.8 (25.0-35.0) pg MCHC 28.4 L (31.0-37.0) g/dL RDW 19.0 H (11.5-15.5) % Plt Count 157 (150-450) k/uL Neutrophils % 89 % Lymphocytes % 7 % Monocytes % 3 % Eosinophils % 0 % Basophils % 0 % Neutrophils # 7.6 (1.3-7.7) k/uL Lymphocytes # 0.6 L (1.0-4.8) k/uL Monocytes # 0.3 (0-1.0) k/uL Eosinophils # 0.0 (0-0.7) k/uL Basophils # 0.0 (0-0.2) k/uL Hypochromasia Marked Anisocytosis Slight Macrocytosis Slight Sodium 137 (137-145) mmol/L Potassium 4.8 (3.5-5.1) mmol/L Chloride 109 H (98-107) mmol/L Carbon Dioxide 22 (22-30) mmol/L Anion Gap 6 mmol/L BUN 85 H (7-17) mg/dL Creatinine 1.54 H (0.52-1.04) mg/dL Est GFR (CKD-EPI)AfAm 39 (>60 ml/min/1.73 sqM) Est GFR (CKD-EPI)NonAf 34 (>60 ml/min/1.73 sqM) Glucose 126 H (74-99) mg/dL Calcium 8.6 (8.4-10.2) mg/dL Total Bilirubin 0.3 (0.2-1.3) mg/dL AST 33 (14-36) U/L ALT 26 (9-52) U/L Alkaline Phosphatase 105 (38-126) U/L Troponin I (0.000-0.034) ng/mL Total Protein 6.0 L (6.3-8.2) g/dL Albumin 3.0 L (3.5-5.0) g/dL Lipase 164 (23-300) U/L Blood Type B Positive Blood Type Recheck No Antibody Screen NEGATIVE Spec Expiration Date 07/24/2018 - 229907/21/18 Range/Units 20:00 WBC (3.8-10.6) k/uL RBC (3.80-5.40) m/uL Hgb (11.4-16.0) gm/dL Hct (34.0-46.0) % MCV (80.0-100.0) fL MCH (25.0-35.0) pg MCHC (31.0-37.0) g/dL RDW (11.5-15.5) % Plt Count (150-450) k/uL Neutrophils % % Lymphocytes % % Monocytes % % Eosinophils % % Basophils % % Neutrophils # (1.3-7.7) k/uL Lymphocytes # (1.0-4.8) k/uL Monocytes # (0-1.0) k/uL Eosinophils # (0-0.7) k/uL Basophils # (0-0.2) k/uL Hypochromasia Anisocytosis Macrocytosis Sodium (137-145) mmol/L Potassium (3.5-5.1) mmol/L Chloride (98-107) mmol/L Carbon Dioxide (22-30) mmol/L Anion Gap mmol/L BUN (7-17) mg/dL Creatinine (0.52-1.04) mg/dL Est GFR (CKD-EPI)AfAm (>60 ml/min/1.73 sqM) Est GFR (CKD-EPI)NonAf (>60 ml/min/1.73 sqM) Glucose (74-99) mg/dL Calcium (8.4-10.2) mg/dL Total Bilirubin (0.2-1.3) mg/dL AST (14-36) U/L ALT (9-52) U/L Alkaline Phosphatase (38-126) U/L Troponin I 0.026 (0.000-0.034) ng/mL Total Protein (6.3-8.2) g/dL Albumin (3.5-5.0) g/dL Lipase (23-300) U/L Blood Type Blood Type Recheck Antibody Screen Spec Expiration Date Disposition Clinical Impression: Upper GI bleed Disposition: ADMITTED IP TO THIS [facility] Condition: Serious Decision to Admit Reason: Admit from EC Decision Date: 07/21/18 Decision Time: 21:54
[2018-07-21 20:17] LABS: Anisocytosis Slight; Basophils % (A) 0 %; Eosinophils % (A) 0 %; HCT 26.8 % (34.0-46.0); HGB 7.6 gm/dL (11.4-16.0); Hypochromasia Marked; Lymphocytes # (A) 0.6 k/uL (1.0-4.8); Lymphocytes % (A) 7 %; MCH 27.8 pg (25.0-35.0); MCHC 28.4 g/dL (31.0-37.0); MCV 98.1 fL (80.0-100.0); Macrocytosis Slight; Mean Platelet Volume 7.7; Monocytes # (A) 0.3 k/uL (0-1.0); Monocytes % (A) 3 %; Neutrophils # (A) 7.6 k/uL (1.3-7.7); Neutrophils % (A) 89 %; Platelet Count 157 k/uL (150-450); RBC 2.74 m/uL (3.80-5.40); WBC 8.6 k/uL (3.8-10.6)
[2018-07-21 20:24] LABS: Calcium 8.6 mg/dL (8.4-10.2); Potassium 4.8 mmol/L (3.5-5.1); Total Bilirubin 0.3 mg/dL (0.2-1.3)
[2018-07-21] MEDS ORDERED: NALOXONE 0.4 MG/ML 1 ML VIAL IV PRN (21:39)
[2018-07-21] MEDS ORDERED: MORPHINE SULFATE 4 MG/ML SYRINGE IV PRN (21:39)
[2018-07-21] MEDS: SODIUM CHLORIDE 0.9% 1,000 ML IV SCH (23:03)
[2018-07-22] MEDS ORDERED: MAGNESIUM HYDROXIDE 2,400 MG/10 ML CUP PO PRN ×2 (00:04→00:21)
[2018-07-22] MEDS ORDERED: CLOTRIMAZOLE TROCHE 10 MG TROCHE PO PRN (00:04)
[2018-07-22] MEDS ORDERED: EPOETIN ALFA 10000 UNIT SQ SCH (00:15)
[2018-07-22] MEDS: HYDROcodone/APAP 5-325MG 1 EACH TAB PO PRN ×3 (01:02→20:33)
[2018-07-22] MEDS: ARIPiprazole 2 MG TAB PO SCH ×2 (01:02→20:33)
[2018-07-22] MEDS: LEVOTHYROXINE 50 MCG TAB PO SCH (05:06)
[2018-07-22] MEDS ORDERED: MIDODRINE 5 MG TAB PO PRN (07:30)
[2018-07-22] MEDS ORDERED: NON-FORMULARY DRUG (Lactose-Reduced Food [Ensure Plus] 237 ML) PO SCH (09:00)
[2018-07-22] MEDS ORDERED: NA PHOS,M-B/NA PHOS,DI-BA 133 ML ENEMA RECTAL PRN (09:00)
[2018-07-22] MEDS ORDERED: BISACODYL 10 MG SUPP RECTAL PRN (09:00)
[2018-07-22] MEDS ORDERED: FAMOTIDINE 20 MG TAB PO SCH (09:00)
[2018-07-22] MEDS: ESCITALOPRAM 20 MG TAB PO SCH (10:01)
[2018-07-22] MEDS: PANTOPRAZOLE 40 MG/10 ML VIAL IV SCH (10:01)
[2018-07-22 10:28] LABS: Anisocytosis Slight; Basophils % (A) 0 %; Eosinophils # (A) 0.1 k/uL (0-0.7); Eosinophils % (A) 3 %; Hypochromasia Marked; Lymphocytes # (A) 0.6 k/uL (1.0-4.8); Lymphocytes % (A) 13 %; MCH 29.5 pg (25.0-35.0); MCV 98.3 fL (80.0-100.0); Macrocytosis Slight; Mean Platelet Volume 8.3; Monocytes # (A) 0.3 k/uL (0-1.0); Monocytes % (A) 7 %; Neutrophils # (A) 3.4 k/uL (1.3-7.7); Neutrophils % (A) 76 %; Platelet Count 132 k/uL (150-450); RBC 2.24 m/uL (3.80-5.40); RDW 18.8 % (11.5-15.5); WBC 4.4 k/uL (3.8-10.6)
[2018-07-22 10:36] LABS: HGB 6.6 gm/dL (11.4-16.0)
[2018-07-22 10:44] LABS: Albumin 2.5 g/dL (3.5-5.0); Calcium 8.3 mg/dL (8.4-10.2); Total Bilirubin 0.3 mg/dL (0.2-1.3); Total Protein 5.2 g/dL (6.3-8.2)
[2018-07-22 11:13] VITALS: BMI 22.8
[2018-07-22] MEDS: FUROSEMIDE 20 MG TAB PO SCH (11:21)
[2018-07-22] MEDS: SENNOSIDES-DOCUSATE SODIUM 1 EACH TAB PO SCH ×2 (11:22→20:29)
--- NOTE | 2018-07-22 13:22 | P.GSCN ---
History of Present Illness Consult date: 07/22/18 Reason for Consult: gi bleed Requesting physician: Miles Collado History of present illness: CHIEF COMPLAINT: GI bleed HISTORY OF PRESENT ILLNESS: 67-year-old female who states she was sent to the hospital from her rehab facility secondary to low hemoglobin. Patient reports recent admission to the hospital and underwent EGD on 07/13/2018 revealing moderate gastritis, mild duodenitis, small hiatal hernia, and possible upper GI bleeding likely from Ruth-Tejada tear in the setting of nausea and vomiting. Patient reports she has been having multiple dark tarry stools since she has been discharged from the hospital. She also complains of right lower quadrant abdominal pain. Denies nausea or vomiting. PAST MEDICAL HISTORY: See list. PAST SURGICAL HISTORY: See list. SOCIAL HISTORY: No illicit drug use. REVIEW OF SYSTEMS: CONSTITUTIONAL: Denies fever or chills. HEENT: Denies blurred vision, vision changes, or eye pain. Denies hemoptysis CARDIOVASCULAR: Denies chest pain or pressure. RESPIRATORY: No shortness of breath. GASTROINTESTINAL: Refer to [facility] for pertinent findings HEMATOLOGIC: Denies bleeding disorders. GENITOURINARY: Denies any blood in urine. SKIN: Denies pruitis. Denies rash. PHYSICAL EXAM: VITAL SIGNS: Reviewed. GENERAL: Well-developed in no acute distress. HEENT: No sclera icterus. Extraocular movements grossly intact. Moist buccal mucosa. Head is atraumatic, normocephalic. ABDOMEN: Soft. Nondistended. Tenderness upon palpation of right lower quadrant. NEUROLOGIC: Alert and oriented. Cranial nerves II through XII grossly intact. LABORATORY DATA: Hemoglobin on admission 7.6. Repeat 6.6 ASSESSMENT: 1. Acute blood loss anemia 2. Recent EGD revealing moderate gastritis, mild duodenitis, small hiatal hernia PLAN: Clear liquid diet. NPO after midnight Monitor hemoglobin. Transfusions per primary care EGD/colonoscopy tomorrow Nurse practitioner note has been reviewed by physician. Signing provider agrees with the documented findings, assessment, and plan of care. Past Medical History Past Medical History: Blood Disorder, Cancer, Deep Vein Thrombosis (DVT), GI Bleed, Liver Disease, Respiratory Disorder Additional Past Medical History / Comment(s): admit 07/27 for upper GI bleed. 7-315 admitted to [facility] with c/o blood in urine and rectal bleeding, DX GI BLEED AND UTI. other hx: Breast Ca x2; Skin Ca squamous and melanoma; uterine ca, lung cancer LOWER LEFT LOBE 70%, c-diff- 6-5-15 snd feb 2017, on xarelto for dvt and portal vein thrombosis. 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 Wound to BACK r/t lung CA, healed 6 months ago History of Any Multi-Drug Resistant Organisms: MRSA Year Discovered:: 09/17/17 MDRO Source:: MRSA URINE Past Surgical History: Adenoidectomy, Appendectomy, Breast Surgery, Chol ecystectomy, Hysterectomy, Orthopedic Surgery, Tonsillectomy Additional Past Surgical History / Comment(s): Mastectomy bilateral; Left lower lobectomy 70%; exploratory laparotomy, [facility] MELANOMA- CURRENTLY HAS 100 SPOTS THAT THEY ARE WATCHING REMMOVED 4 SO FAR.lasik eye sx, past "abcess on back(ecoli) pt stated they had to open a channel,removed 2 ribs and some muscle and it was open to drain to 18 months". surgical repair to Right wrist, right femur, and right hip in 2018 Additional Past Anesthesia/Blood Transfusion Reaction / Comm: PAST BLOOD TRANSFUSIONS- NO COMPLICATIONS Past Psychological History: Depression Additional Psychological History / Comment(s): LOW DOSE LEXAPRO, CURRENTLY NO DEPRESSION, PT normally lives at home with her zeeshan, however currently patient resides at [facility] due to right arm and hip fractures . pt started she had just recently started working w/pt getting up w/walker and assistance and transfer w/assistance to w/c Smoking Status: Former smoker Past Alcohol Use History: None Reported Additional Past Alcohol Use History / Comment(s): STARTED SMOKING AT AGE 13, SMOKED 1 PPD SMOKED FOR 3 YEARS THEN CUT DOWN TO ONLY SMOKING WHEN OUT WITH FRIENDS.QUIT 1978. Past Drug Use History: None Reported - Past Family History Father Additional Family Medical History / Comment(s): FROM COMPLICATIONS OF SCHRAPNEL IN BODY Mother Additional Family Medical History / Comment(s): STOMACH PROBLEMS, EMPHYSEMA Medications and Allergies Home Medications Medication Instructions Recorded Confirmed Type Levothyroxine Sodium [Synthroid] 50 mcg PO DAILY@0600 07/04/17 07/21/18 History Escitalopram Oxalate [Lexapro] 20 mg PO DAILY 07/06/17 07/21/18 History Cholecalciferol [Vitamin D3 (25 2,000 unit PO DAILY@1700 07/22/17 07/21/18 History Mcg = 1000 Iu)] Aspirin EC [Ecotrin] 325 mg PO DAILY@1700 08/30/17 07/21/18 History ARIPiprazole [Abilify] 2 mg PO HS 06/04/18 07/21/18 History Epoetin Mike [Procrit] 10,000 unit SQ DIRECTED #4 vial 07/17/18 07/21/18 Rx Ertapenem [INVanz] 0.5 gm IVPB Q24H #7 bag 07/17/18 07/21/18 Rx Famotidine [Pepcid] 20 mg PO DAILY tab 07/17/18 07/21/18 Rx Midodrine [ProAmatine] 5 mg PO AC-TID PRN tab 07/17/18 07/21/18 Rx Sennosides-Docusate Sodium 2 each PO BID tab 07/17/18 07/21/18 Rx [Senokot-S] Torsemide [Demadex] 10 mg PO DAILY #30 tablet 07/17/18 07/21/18 Rx Bisacodyl [Dulcolax] 10 mg RECTAL DAILY PRN 07/21/18 07/21/18 History Clotrimazole Adela [Mycelex 10 mg PO 5XD PRN 07/21/18 07/21/18 History Adela] HYDROcodone/APAP 5-325MG [[place] 1 tab PO Q8H PRN 07/21/18 07/21/18 History 5-325] Lactose-Reduced Food [Ensure Plus] 237 ml PO TID 07/21/18 07/21/18 History Magnesium Hydroxide [Milk of 7,200 mg PO DAILY PRN 07/21/18 07/21/18 History Magnesia Concentrate] Na Phos,M-B/Na Phos,Di-Ba [Fleet 133 ml RECTAL DAILY PRN 07/21/18 07/21/18 History Adult] predniSONE See Taper PO DIRECTED 07/21/18 07/21/18 History Allergies Allergy/AdvReac Type Severity Reaction Status Date / Time VANESSA Inhibitors Allergy Unknown Verified 07/21/18 18:22 baclofen Allergy Confusion Verified 07/21/18 18:22 cefepime HCl [From Maxipime] Allergy Rash/Hives Verified 07/21/18 18:22 cephalexin Allergy Rash/Hives Verified 07/21/18 18:22 ciprofloxacin Allergy Rash/Hives Verified 07/21/18 17:50 clindamycin Allergy Nausea & Verified 07/21/18 18:22 Vomiting erythromycin base Allergy Rash/Hives Verified 07/21/18 18:22 heparin Allergy Unknown Verified 07/21/18 18:22 lisinopril [From Zestril] Allergy Unknown Verified 07/21/18 18:22 lorazepam [From Ativan] Allergy Confusion Verified 07/21/18 18:22 metronidazole [From Flagyl] Allergy Nausea & Verified 07/21/18 18:22 Vomiting penicillin G Allergy Rash/Hives Verified 07/21/18 18:22 shellfish derived [Shellfish] Allergy Swelling Verified 07/21/18 18:22 Sulfa (Sulfonamide Allergy Swelling Verified 07/21/18 18:22 Antibiotics) steroids Allergy Unknown Uncoded 07/21/18 17:50 Surgical - Exam Vital Signs Temp Pulse Resp BP Pulse Ox 98.4 F 87 18 103/57 99 07/21/18 17:40 07/21/18 17:40 07/21/18 17:40 07/21/18 17:40 07/21/18 17:40 Results - Labs 07/22/18 09:57 07/22/18 09:57 Abnormal Lab Results - Last 24 Hours (Table) 07/21/18 07/21/18 07/22/18 Range/Units 20:00 20:00 09:57 RBC 2.74 L 2.24 L (3.80-5.40) m/uL Hgb 7.6 L 6.6 L* (11.4-16.0) gm/dL Hct 26.8 L 22.0 L (34.0-46.0) % MCHC 28.4 L 30.0 L (31.0-37.0) g/dL RDW 19.0 H 18.8 H (11.5-15.5) % Plt Count 132 L (150-450) k/uL Lymphocytes # 0.6 L 0.6 L (1.0-4.8) k/uL Chloride 109 H (98-107) mmol/L Carbon Dioxide (22-30) mmol/L BUN 85 H (7-17) mg/dL Creatinine 1.54 H (0.52-1.04) mg/dL Glucose 126 H (74-99) mg/dL Calcium (8.4-10.2) mg/dL Total Protein 6.0 L (6.3-8.2) g/dL Albumin 3.0 L (3.5-5.0) g/dL 07/22/18 Range/Units 09:57 RBC (3.80-5.40) m/uL Hgb (11.4-16.0) gm/dL Hct (34.0-46.0) % MCHC (31.0-37.0) g/dL RDW (11.5-15.5) % Plt Count (150-450) k/uL Lymphocytes # (1.0-4.8) k/uL Chloride 112 H (98-107) mmol/L Carbon Dioxide 20 L (22-30) mmol/L BUN 74 H (7-17) mg/dL Creatinine 1.41 H (0.52-1.04) mg/dL Glucose (74-99) mg/dL Calcium 8.3 L (8.4-10.2) mg/dL Total Protein 5.2 L (6.3-8.2) g/dL Albumin 2.5 L (3.5-5.0) g/dL Diabetes panel 07/21/18 07/22/18 Range/Units 20:00 09:57 Sodium 137 138 (137-145) mmol/L Potassium 4.8 4.0 (3.5-5.1) mmol/L Chloride 109 H 112 H (98-107) mmol/L Carbon Dioxide 22 20 L (22-30) mmol/L BUN 85 H 74 H (7-17) mg/dL Creatinine 1.54 H 1.41 H (0.52-1.04) mg/dL Glucose 126 H 80 (74-99) mg/dL Calcium 8.6 8.3 L (8.4-10.2) mg/dL AST 33 26 (14-36) U/L ALT 26 30 (9-52) U/L Alkaline Phosphatase 105 91 (38-126) U/L Total Protein 6.0 L 5.2 L (6.3-8.2) g/dL Albumin 3.0 L 2.5 L (3.5-5.0) g/dL Calcium panel 07/21/18 07/22/18 Range/Units 20:00 09:57 Calcium 8.6 8.3 L (8.4-10.2) mg/dL Albumin 3.0 L 2.5 L (3.5-5.0) g/dL Pituitary panel 07/21/18 07/22/18 Range/Units 20:00 09:57 Sodium 137 138 (137-145) mmol/L Potassium 4.8 4.0 (3.5-5.1) mmol/L Chloride 109 H 112 H (98-107) mmol/L Carbon Dioxide 22 20 L (22-30) mmol/L BUN 85 H 74 H (7-17) mg/dL Creatinine 1.54 H 1.41 H (0.52-1.04) mg/dL Glucose 126 H 80 (74-99) mg/dL Calcium 8.6 8.3 L (8.4-10.2) mg/dL Adrenal panel 07/21/18 07/22/18 Range/Units 20:00 09:57 Sodium 137 138 (137-145) mmol/L Potassium 4.8 4.0 (3.5-5.1) mmol/L Chloride 109 H 112 H (98-107) mmol/L Carbon Dioxide 22 20 L (22-30) mmol/L BUN 85 H 74 H (7-17) mg/dL Creatinine 1.54 H 1.41 H (0.52-1.04) mg/dL Glucose 126 H 80 (74-99) mg/dL Calcium 8.6 8.3 L (8.4-10.2) mg/dL Total Bilirubin 0.3 0.3 (0.2-1.3) mg/dL AST 33 26 (14-36) U/L ALT 26 30 (9-52) U/L Alkaline Phosphatase 105 91 (38-126) U/L Total Protein 6.0 L 5.2 L (6.3-8.2) g/dL Albumin 3.0 L 2.5 L (3.5-5.0) g/dL
[2018-07-22] MEDS ORDERED: PEG 3350-NA SULF,BICARB,CL/KCL 4,000 ML BOTTLE PO ONE (14:00)
[2018-07-22] MEDS: ASPIRIN 325 MG TAB PO SCH (15:46)
[2018-07-22] MEDS: CHOLECALCIFEROL 1,000 UNIT TAB PO SCH (15:54)
[2018-07-22] MEDS ORDERED: FUROSEMIDE 10 MG/ML 2 ML VIAL IV ONE (18:33)
[2018-07-22] MEDS: SODIUM CHLORIDE 0.9% 1,000 ML IV SCH (19:20)
--- NOTE | 2018-07-23 04:09 | HP ---
HISTORY AND PHYSICAL CHIEF COMPLAINT: GI bleed. HISTORY OF PRESENT ILLNESS: This is a 67-year-old white female transferred to the hospital due to massive GI bleed with hemoglobin dropping down to 6.9. Two units of packed red blood cells have been ordered. Possibly upper GI bleeding from Ruth-Tejada tear. Nausea and vomiting versus possible lower bowel bleed. Endoscopy is planned for the morning with colonoscopy and EGD. PAST MEDICAL HISTORY: 1. Acute renal failure secondary to urostomy tube obstruction. 2. Chronic kidney disease. 3. Chronic neuropathy. 4. Multiple history of cancers. SOCIAL HISTORY: Negative. REVIEW OF SYSTEMS: Fourteen-point review of systems negative except for weakness and fatigue. PHYSICAL EXAMINATION: VITAL SIGNS: Stable. Afebrile. CARDIOVASCULAR: S1, S2. LUNGS: Transmitted upper airway sounds. HEMATOLOGY: Negative Homans. GI: Diffuse tenderness. Increased bowel sounds x4. PSYCH: Fair mood and affect. NEUROLOGIC: Alert and oriented x3. Acute blood-loss anemia, acute on chronic severe anemia. Colonoscopy, EGD in the morning, status post acute kidney injury with renal disease secondary to urostomy obstruction, improved. Will transfuse 2 units packed red blood cells. Please see further orders. MMODL / IJN: [id number] /
[2018-07-23] MEDS: HYDROcodone/APAP 5-325MG 1 EACH TAB PO PRN ×2 (05:52→16:38)
[2018-07-23] MEDS: LEVOTHYROXINE 50 MCG TAB PO SCH (05:52)
[2018-07-23] MEDS: ESCITALOPRAM 20 MG TAB PO SCH (07:51)
[2018-07-23] MEDS: FUROSEMIDE 20 MG TAB PO SCH (07:51)
[2018-07-23] MEDS: SENNOSIDES-DOCUSATE SODIUM 1 EACH TAB PO SCH ×2 (07:52→21:08)
[2018-07-23 08:49] LABS: Anisocytosis Slight; Basophils % (A) 0 %; Eosinophils # (A) 0.1 k/uL (0-0.7); Eosinophils % (A) 2 %; HCT 29.2 % (34.0-46.0); Hypochromasia Slight; Lymphocytes # (A) 0.3 k/uL (1.0-4.8); Lymphocytes % (A) 6 %; MCH 29.4 pg (25.0-35.0); MCHC 31.5 g/dL (31.0-37.0); MCV 93.4 fL (80.0-100.0); Monocytes # (A) 0.3 k/uL (0-1.0); Monocytes % (A) 5 %; Neutrophils # (A) 4.2 k/uL (1.3-7.7); Neutrophils % (A) 86 %; Platelet Count 123 k/uL (150-450); Poikilocytosis Slight; RBC 3.12 m/uL (3.80-5.40); RDW 17.7 % (11.5-15.5); WBC 4.9 k/uL (3.8-10.6)
[2018-07-23 08:58] LABS: HGB 9.2 gm/dL (11.4-16.0)
[2018-07-23 09:09] LABS: Albumin 2.5 g/dL (3.5-5.0); Calcium 7.9 mg/dL (8.4-10.2); Potassium 4.4 mmol/L (3.5-5.1); Total Bilirubin 0.7 mg/dL (0.2-1.3); Total Protein 5.2 g/dL (6.3-8.2)
[2018-07-23] MEDS: PANTOPRAZOLE 40 MG/10 ML VIAL IV SCH (10:00)
[2018-07-23] MEDS ORDERED: IV FLUID CONTINUATION 500 ML IV ONE (11:42)
[2018-07-23] MEDS ORDERED: PROPOFOL 10 MG/ML 20 ML VIAL IV ONE (11:42)
--- NOTE | 2018-07-23 11:56 | CDI ---
Documentation Clarification Form Date: 07/23/2018 11:39:00 AM From: Lyudmila Fitch RN, CCDS Admit Date: 07/21/2018 9:39:00 PM Patient Name: Treasure Fowler Visit Number: [id number] ATTENTION: The Clinical Documentation Specialists (CDI) and [facility] Coding Staff appreciate your assistance in clarifying documentation. Please respond to the clarification below the line at the bottom and electronically sign. The CDI & [facility] Coding staff will review the response and follow-up if needed. Please note: Queries are made part of the Legal Health Record. If you have any questions, please contact the author of this message via ITS. Dr. Miles Collado Patient was admitted with acute renal failure secondary to urostomy tube obstruction with a documented history of CKD that requires further specificity. History/Risk Factors: ARF secondary to urostomy tube obstruction, ckd, chronic neuropathy, ca, liver disease Clinical Indicators: Current BUN: 85/74/54 CR: 1.54/1.41/1.38 GFR: 34/38/39 Patients Baseline BUN/CR/GFR:85/1.65/32 Treatment: IVF @ 50 cc/hr In order to capture the severity of condition, please clarify if the condition signifies: CKD Stage 1 (GFR > 90) CKD Stage 2 (GFR 60-89) CKD Stage 3 (GFR 30-59) CKD Stage 4 (GFR 15-29) CKD Stage 5 (GFR <15) ESRD Other, please specify Unable to determine (Last Revision: June 2017) MTDD
--- NOTE | 2018-07-23 12:06 | P.OP ---
Date of Procedure: 07/23/18 Preoperative Diagnosis: GI bleed Postoperative Diagnosis: Antral gastritis Hiatal hernia Mild esophagitis Normal colon Procedure(s) Performed: EGD Colonoscopy Anesthesia: MAC Surgeon: Naveen Johnson Pathology: other (Antrum, esophagus) Condition: stable Disposition: PACU Description of Procedure: N PROCEDURE: The patient was placed on the endoscopy table in the lateral position. Digital rectal examination was performed which revealed no abnormalities. s. Flexible colonoscope was then placed in the patient's anus and passed throughout the entire colon. The ileocecal valve was visualized. The cecum, ascending, transverse, descending and sigmoid colon were normal. The rectum was normal as well. There is no evidence of any GI bleed within the colon. Next the gastroscope placed oropharynx and then into the esophagus and stomach. Scope then placed through the pylorus. The first and second portion of the duodenum appeared normal. Scope summer back the antrum and there was some mild inflammation this area was biopsied. The scope was then retroflexed and the remainder of the stomach appeared normal. There was a hiatal hernia. The GE junction was at 38 cm. The distal esophagus appeared mildly inflamed a biopsies performed. The proximal esophagusAppeared normal. Scope was withdrawn for patient. There is no evidence of any upper GI bleed.
--- NOTE | 2018-07-23 14:22 | P.DS ---
Providers Date of admission: 07/21/18 21:39 Expected date of discharge: 07/23/18 Attending physician: Miles Collado Consults: 07/22/18 08:26 Consult Physician Urgent Consulting Provider: Naveen Johnson Consult Reason/Comments: gi bleed Do you want consulting provider notified?: Yes Primary care physician: [facility] Course: Final Diagnoses: -Acute blood loss anemia, status post transfusion of 2 units packed RBCs; recent EGD reporting no active bleed, possible Ruth-Tejada tear, moderate gastritis, mild duodenitis and small hiatal hernia. Repeat EGD and colonoscopy reporting antral gastritis, hiatal hernia, esophagitis and normal colon. -Chronic anemia secondary to renal failure, iron deficiency -Recent UTI with Enterobacter cloacae, continues on IV antibiotics as previously prescribed per infectious disease -Acute on chronic kidney stage III -Bilateral hydronephrosis in a patient with recent bilateral ureteral stent replacements. Status post bilateral ureteral stent exchange 07/04/2018. -Recent Interstitial nephritis, continues on prednisone taper as per nephrology -Chronic neuropathy -Multiple history of cancers Hospital course: This is a 67-year-old female admitted from subacute rehab with acute blood loss anemia. Hemoglobin dropped to 6.9, received 2 units packed RBCs with significant clinical improvement, hemoglobin up to 9.2. Patient recently had EGD reporting moderate gastritis, duodenitis and small hiatal hernia. Creatinine currently 1.38. Evaluated by general surgery, underwent colonoscopy and repeat EGD. Endoscopies reported antral gastritis, hiatal hernia, mild esophagitis, normal colon. Cleared by surgery for discharge. Patient is being discharged back to [facility] subacute rehab in a stable condition with guarded prognosis. _ PHYSICAL EXAM: GENERAL: Sitting up in bed, no acute distress HEENT: Conjunctivae normal. eyes normal. NECK: No JVD. No thyroid enlargement. No LNs CARDIOVASCULAR: S1, S2 regular. No murmur RESPIRATION: Breath sounds diminished in the bases. No rhonchi or crackles. No bronchial breathing. ABDOMEN: Soft, mild diffuse tenderness . No guarding. no masses palpable. Bowel sounds heard. LEGS: No edema. no swelling PSYCHIATRY: Alert and oriented -3, mood and affect normal. NERVOUS SYSTEM: Cranial N 2-12 grossly normal. Moves all 4 limbs. Diffuse weakness No focal deficits. No sensory deficit. Skin: no lesions, no rash Joints: No active swelling. No inflammation. Lymphatic system. No LN neck axilla or groin. The impression and plan of care has been dictated as directed. : I performed a history and examination of this patient, discussed the same with the dictator. I agree with the dictator's note ,documented as a scribe. Any additional findings or plans will be noted. Time taken: 35 minutes Patient Condition at Discharge: Stable Plan - Discharge Summary Discharge Rx Participant: No New Discharge Prescriptions: Continue Levothyroxine Sodium [Synthroid] 50 mcg PO DAILY@0600 Escitalopram Oxalate [Lexapro] 20 mg PO DAILY Cholecalciferol [Vitamin D3 (25 Mcg = 1000 Iu)] 2,000 unit PO DAILY@1700 Aspirin EC [Ecotrin] 325 mg PO DAILY@1700 ARIPiprazole [Abilify] 2 mg PO HS Famotidine [Pepcid] 20 mg PO DAILY tab Midodrine [ProAmatine] 5 mg PO AC-TID PRN tab PRN Reason: Hypotension Sennosides-Docusate Sodium [Senokot-S] 2 each PO BID tab Ertapenem [INVanz] 0.5 gm IVPB Q24H #7 bag Torsemide [Demadex] 10 mg PO DAILY #30 tablet Epoetin Mike [Procrit] 10,000 unit SQ DIRECTED #4 vial Magnesium Hydroxide [Milk of Magnesia Concentrate] 7,200 mg PO DAILY PRN PRN Reason: Constipation Na Phos,M-B/Na Phos,Di-Ba [Fleet Adult] 133 ml RECTAL DAILY PRN PRN Reason: constipation Bisacodyl [Dulcolax] 10 mg RECTAL DAILY PRN PRN Reason: constipation Clotrimazole Adela [Mycelex Adela] 10 mg PO 5XD PRN PRN Reason: THRUSH Lactose-Reduced Food [Ensure Plus] 237 ml PO TID HYDROcodone/APAP 5-325MG [Gibbon 5-325] 1 tab PO Q8H PRN #9 tab PRN Reason: Pain predniSONE See Taper PO DIRECTED #0 Discharge Medication List Levothyroxine Sodium [Synthroid] 50 mcg PO DAILY@0600 07/04/17 [History] Escitalopram Oxalate [Lexapro] 20 mg PO DAILY 07/06/17 [History] Cholecalciferol [Vitamin D3 (25 Mcg = 1000 Iu)] 2,000 unit PO DAILY@1700 07/22/17 [History] Aspirin EC [Ecotrin] 325 mg PO DAILY@1700 08/30/17 [History] ARIPiprazole [Abilify] 2 mg PO HS 06/04/18 [History] Epoetin Mike [Procrit] 10,000 unit SQ DIRECTED #4 vial 07/17/18 [Rx] Ertapenem [INVanz] 0.5 gm IVPB Q24H #7 bag 07/17/18 [Rx] Famotidine [Pepcid] 20 mg PO DAILY tab 07/17/18 [Rx] Midodrine [ProAmatine] 5 mg PO AC-TID PRN tab 07/17/18 [Rx] Sennosides-Docusate Sodium [Senokot-S] 2 each PO BID tab 07/17/18 [Rx] Torsemide [Demadex] 10 mg PO DAILY #30 tablet 07/17/18 [Rx] Bisacodyl [Dulcolax] 10 mg RECTAL DAILY PRN 07/21/18 [History] Clotrimazole Adela [Mycelex Adela] 10 mg PO 5XD PRN 07/21/18 [History] Lactose-Reduced Food [Ensure Plus] 237 ml PO TID 07/21/18 [History] Magnesium Hydroxide [Milk of Magnesia Concentrate] 7,200 mg PO DAILY PRN 07/21/18 [History] Na Phos,M-B/Na Phos,Di-Ba [Fleet Adult] 133 ml RECTAL DAILY PRN 07/21/18 [History] HYDROcodone/APAP 5-325MG [Gibbon 5-325] 1 tab PO Q8H PRN #9 tab 07/23/18 [Rx] predniSONE See Taper PO DIRECTED #0 07/23/18 [Rx] Follow up Appointment(s)/Referral(s): Miles Collado MD [Primary Care Provider] - 3 Days Naveen Johnson MD [STAFF PHYSICIAN] - 07/31/18 3:10 pm Activity/Diet/Wound Care/Special Instructions: [facility] Diet: Cardiac Activity: As tolerated CBC,BMP in 3 days.
[2018-07-23] MEDS: SODIUM CHLORIDE 0.9% 1,000 ML IV SCH (15:45)
[2018-07-23] MEDS: CHOLECALCIFEROL 1,000 UNIT TAB PO SCH (16:35)
[2018-07-23] MEDS: ASPIRIN 325 MG TAB PO SCH (16:35)
[2018-07-23] MEDS: ARIPiprazole 2 MG TAB PO SCH (21:12)
[2018-07-24] MEDS: HYDROcodone/APAP 5-325MG 1 EACH TAB PO PRN (03:49)
[2018-07-24] MEDS: LEVOTHYROXINE 50 MCG TAB PO SCH (05:05)
[2018-07-24 07:10] VITALS: BP 97/61; PULSE 98; RESP 12; TEMP 98.3
[2018-07-24] MEDS: ESCITALOPRAM 20 MG TAB PO SCH (07:47)
[2018-07-24] MEDS: FUROSEMIDE 20 MG TAB PO SCH (07:47)
[2018-07-24] MEDS: SENNOSIDES-DOCUSATE SODIUM 1 EACH TAB PO SCH (07:47)
[2018-07-24] MEDS: PANTOPRAZOLE 40 MG/10 ML VIAL IV SCH (07:47)
[2018-07-24] MEDS: SODIUM CHLORIDE 0.9% 1,000 ML IV SCH (07:48)
--- NOTE | 2018-07-24 12:02 | P.PN ---
Subjective Progress Note Date: 07/24/18 CHIEF COMPLAINT: GI bleed HISTORY OF PRESENT ILLNESS: The patient is status post EGD and colonoscopy revealing antral gastritis, hiatal hernia, mild esophagitis, and normal colon. Patient is feeling well this morning. Denies nausea or vomiting. Tolerating PO intake. Denies bloody bowel movements. PHYSICAL EXAM: VITAL SIGNS: Reviewed. GENERAL: Well-developed in no acute distress. HEENT: No sclera icterus. Extraocular movements grossly intact. Moist buccal mucosa. Head is atraumatic, normocephalic. ABDOMEN: Soft. Nondistended. Nontender NEUROLOGIC: Alert and oriented. Cranial nerves II through XII grossly intact. ASSESSMENT: 1. Acute blood loss anemia 2. Recent EGD revealing moderate gastritis, mild duodenitis, small hiatal hernia 3. status post EGD and colonoscopy revealing antral gastritis, hiatal hernia, mild esophagitis, and normal colon PLAN: Continue diet. Advance as tolerated. Patient is stable for discharge from a surgical standpoint. Nurse practitioner note has been reviewed by physician. Signing provider agrees with the documented findings, assessment, and plan of care. Objective - Vital Signs Vital signs: Vital Signs Temp 98.3 F 07/24/18 06:56 Pulse 98 07/24/18 09:08 Resp 12 07/24/18 06:56 BP 97/61 07/24/18 06:56 Pulse Ox 95 07/24/18 06:56 Intake & Output 07/23/18 07/24/18 07/24/18 18:59 06:59 18:59 Intake Total 850 500 Output Total 903 500 Balance -53 0 Intake: IV 100 Intake, IV Titration 350 Amount Sodium Chloride 0.9% 1, 350 000 ml @ 50 mls/hr IV . Q20H [facility] Rx#:[id number] Oral 400 500 Output: Urine 900 500 Stool 3 Other: Voiding Method Indwelling Catheter Indwelling Catheter Indwelling Catheter # Bowel Movements 1 - Labs CBC & Chem 7: 07/23/18 07:17 07/23/18 07:17
[2018-07-25] MEDS ORDERED: PANTOPRAZOLE 40 MG TABLET PO SCH (09:00)
[2018-07-31] MEDS ORDERED: DARBEPOETIN ALFA 25 MCG/0.42 ML SYRINGE SQ SCH (09:00)
== END 2018-07-24 11:28 | DRG 378 ==
LOC: EC 17:37 → 4SSUR 21:39
PROVIDERS: ADMIT Family Medicine; ATTEND Family Medicine
PROC: 30233N1 Transfusion of Nonautologous Red Blood Cells into Peripheral Vein, Percutaneous Approach (ICD-10-PCS; 2018-07-22)
PROC: 0DJD8ZZ Inspection of Lower Intestinal Tract, Via Natural or Artificial Opening Endoscopic (ICD-10-PCS; principal; 2018-07-23 15:05)
PROC: 0DB78ZX Excision of Stomach, Pylorus, Via Natural or Artificial Opening Endoscopic, Diagnostic (ICD-10-PCS; principal; 2018-07-23 15:05)
DX: K29.71 Gastritis, unspecified, with bleeding (principal); D62 Acute posthemorrhagic anemia; N13.30 Unspecified hydronephrosis; N17.9 Acute kidney failure, unspecified; K20.9 Esophagitis, unspecified; D63.1 Anemia in chronic kidney disease; G62.9 Polyneuropathy, unspecified; K44.9 Diaphragmatic hernia without obstruction or gangrene; K74.60 Unspecified cirrhosis of liver; Z79.82 Long term (current) use of aspirin; Z79.890 Hormone replacement therapy; Z79.899 Other long term (current) drug therapy; Z82.5 Family history of asthma and other chronic lower respiratory diseases; Z85.118 Personal history of other malignant neoplasm of bronchus and lung; Z85.3 Personal history of malignant neoplasm of breast; Z85.42 Personal history of malignant neoplasm of other parts of uterus; Z85.820 Personal history of malignant melanoma of skin; Z87.891 Personal history of nicotine dependence; Z90.13 Acquired absence of bilateral breasts and nipples; Z90.710 Acquired absence of both cervix and uterus; Z88.2 Allergy status to sulfonamides; Z88.8 Allergy status to other drugs, medicaments and biological substances; Z88.1 Allergy status to other antibiotic agents; Z88.0 Allergy status to penicillin; Z91.013 Allergy to seafood; Z90.49 Acquired absence of other specified parts of digestive tract; F32.9 Major depressive disorder, single episode, unspecified; N18.3 Chronic kidney disease, stage 3 (moderate)
CPT/HCPCS: 36415; 43239; 45378; 80053; 83690; 84484; 85025; 86850; 86900; 86901; 86920; 88305; 96374; 96375; 99285

== ENCOUNTER → 2018-10-03 | Outpatient (CLI) | payer MEDICARE, OTHER ==
[2018-10-03 18:48] LABS: African American GFR (CKD) 19.2 (60.0-200.0); BUN/Creat Ratio 18.57 Ratio (12.00-20.00); Calcium 8.6 mg/dL (8.7-10.3); Potassium 4.1 mmol/L (3.5-5.5)
== END | disposition home or self-care (01) ==
LOC: LABWHC1 12:13
PROVIDERS: ATTEND Urology
DX: N13.30 Unspecified hydronephrosis (principal)
CPT/HCPCS: 36415; 80048

== ENCOUNTER → 2018-10-07 | Outpatient (CLI) | payer MEDICARE, OTHER ==
[2018-10-07 13:20] LABS: Anisocytosis Slight; Basophils # (A) 0.1 k/uL (0-0.2); Basophils % (A) 1 %; Eosinophils # (A) 0.2 k/uL (0-0.7); Eosinophils % (A) 4 %; HCT 33.6 % (34.0-46.0); Hypochromasia Marked; Lymphocytes # (A) 1.6 k/uL (1.0-4.8); Lymphocytes % (A) 36 %; MCH 26.4 pg (25.0-35.0); MCHC 29.7 g/dL (31.0-37.0); Mean Platelet Volume 7.6; Monocytes # (A) 0.3 k/uL (0-1.0); Monocytes % (A) 6 %; Neutrophils # (A) 2.3 k/uL (1.3-7.7); Neutrophils % (A) 51 %; Platelet Count 264 k/uL (150-450); RBC 3.78 m/uL (3.80-5.40); RDW 16.7 % (11.5-15.5); WBC 4.4 k/uL (3.8-10.6)
[2018-10-07 20:25] LABS: Vitamin D 25 Hydroxy 25.7 ng/mL (30.0-100.0)
[2018-10-07 20:42] LABS: African American GFR (CKD) 19.2 (60.0-200.0); Anion Gap 11.5 mmol/L (4.00-12.00); Carbon Dioxide 19.5 mmol/L (21.6-31.8); Non-African American GFR(CKD) 16.5 (60.0-200.0); Potassium 5.1 mmol/L (3.5-5.5)
[2018-10-07 20:46] LABS: T4, Free (Free Thyroxine) 1.2 ng/dL (0.80-1.80)
[2018-10-07 21:31] LABS: Vitamin B12 >4000.0 pg/mL (211-911)
== END | disposition home or self-care (01) ==
LOC: LABWHC1 12:18
PROVIDERS: ATTEND Family Medicine
DX: I10 Essential (primary) hypertension (principal); B89 Unspecified parasitic disease; E11.9 Type 2 diabetes mellitus without complications; Z79.899 Other long term (current) drug therapy
CPT/HCPCS: 36415; 80051; 82306; 82565; 82607; 84439; 84443; 84481; 84520; 85025

== ENCOUNTER 2018-12-03 14:55 | Inpatient (IN) | payer MEDICARE, OTHER ==
[2018-12-03] MEDS ORDERED: SODIUM CHLORIDE 0.9% 500 ML 500 ML IV STA (15:28)
[2018-12-03] MEDS ORDERED: SODIUM CHLORIDE 0.9% 1,000 ML IV STA ×2 (15:28)
--- NOTE | 2018-12-03 15:32 | ED ---
Weakness HPI - General Chief complaint: Urogenital Stated complaint: UTI/abd pain Time Seen by Provider: 12/03/18 15:09 Source: patient, RN notes reviewed, old records reviewed Mode of arrival: wheelchair Limitations: no limitations - History of Present Illness Initial comments: This is a 5-year-old female the ER for evaluation patient presented today for evaluation of abdominal pain abdominal pain with burning with urination. Patient states she's had symptoms times one and a half weeks progressively worsening no nausea no vomiting no chest pain no current shortness of breath. Patient has long-standing history of Ca no recent change in medications no drug or alcohol abuse no fevers MD Complaint: generalized weakness (Suprapubic abdominal pain) -: week(s) Severity: mild Severity scale (1-10): 2 Quality: aching Consistency: constant Improves with: none Worsens with: none Context: recent illness Associated Symptoms: dysuria, nausea/vomiting, shortness of breath - Related Data Home Medications Medication Instructions Recorded Confirmed Levothyroxine Sodium [Synthroid] 50 mcg PO DAILY@0600 07/04/17 12/03/18 Escitalopram Oxalate [Lexapro] 20 mg PO DAILY 07/06/17 12/03/18 Furosemide [Lasix] 20 mg PO DAILY 12/03/18 12/03/18 Allergies Allergy/AdvReac Type Severity Reaction Status Date / Time VANESSA Inhibitors Allergy Unknown Verified 12/03/18 16:53 baclofen Allergy Confusion Verified 12/03/18 16:53 cefepime HCl [From Maxipime] Allergy Rash/Hives Verified 12/03/18 16:53 cephalexin Allergy Rash/Hives Verified 12/03/18 16:53 ciprofloxacin Allergy Rash/Hives Verified 12/03/18 16:53 clindamycin Allergy Nausea & Verified 12/03/18 16:53 Vomiting erythromycin base Allergy Rash/Hives Verified 12/03/18 16:53 heparin Allergy Unknown Verified 12/03/18 16:53 lisinopril [From Zestril] Allergy Unknown Verified 12/03/18 16:53 lorazepam [From Ativan] Allergy Confusion Verified 12/03/18 16:53 metronidazole [From Flagyl] Allergy Nausea & Verified 12/03/18 16:53 Vomiting penicillin G Allergy Rash/Hives Verified 12/03/18 16:53 shellfish derived [Shellfish] Allergy Swelling Verified 12/03/18 16:53 Sulfa (Sulfonamide Allergy Swelling Verified 12/03/18 16:53 Antibiotics) steroids Allergy Unknown Uncoded 12/03/18 15:07 Review of Systems ROS Statement: Those systems with pertinent positive or pertinent negative responses have been documented in the HPI. ROS Other: All systems not noted in ROS Statement are negative. Past Medical History Past Medical History: Blood Disorder, Cancer, Deep Vein Thrombosis (DVT), GI Bleed, Liver Disease, Respiratory Disorder Additional Past Medical History / Comment(s): admit 07/27 for upper GI bleed. [facility] in urine and rectal bleeding, DX GI BLEED AND UTI. other hx: Breast Ca x2; Skin Ca squamous and melanoma; uterine ca, lung cancer LOWER LEFT LOBE 70%, c-diff- 6-5-15 snd feb 2017, on xarelto for dvt and portal vein thrombosis. 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 Wound to BACK r/t lung CA, healed 6 months ago History of Any Multi-Drug Resistant Organisms: C-DIFF, MRSA Date of last positivie culture/infection: 09/17/17 MDRO Source:: MRSA URINE Past Surgical History: Adenoidectomy, Appendectomy, Breast Surgery, Cholecystectomy, Hysterectomy, Orthopedic Surgery, Tonsillectomy Additional Past Surgical History / Comment(s): Mastectomy bilateral; Left lower lobectomy 70%; exploratory laparotomy, LASER SX AT [facility] FOR MELANOMA- CUR RENTLY HAS 100 SPOTS THAT THEY ARE WATCHING REMMOVED 4 SO FAR.lasik eye sx, past "abcess on back(ecoli) pt stated they had to open a channel,removed 2 ribs and some muscle and it was open to drain to 18 months". surgical repair to Right wrist, right femur, and right hip in 2018 Additional Past Anesthesia/Blood Transfusion Reaction / Comment(s): PAST BLOOD TRANSFUSIONS- NO COMPLICATIONS Past Psychological History: Depression Smoking Status: Former smoker Past Alcohol Use History: None Reported Past Drug Use History: None Reported - Past Family History Father Additional Family Medical History / Comment(s): FROM COMPLICATIONS OF SCHRAPNEL IN BODY Mother Additional Family Medical History / Comment(s): STOMACH PROBLEMS, EMPHYSEMA General Exam Limitations: no limitations General appearance: alert, in no apparent distress, anxious, in distress Head exam: Present: atraumatic, normocephalic, normal inspection Eye exam: Present: normal appearance, PERRL, EOMI. Absent: scleral icterus, conjunctival injection, periorbital swelling ENT exam: Present: normal exam, mucous membranes moist Neck exam: Present: normal inspection. Absent: tenderness, meningismus, lymphadenopathy Respiratory exam: Present: normal lung sounds bilaterally. Absent: respiratory distress, wheezes, rales, rhonchi, stridor Cardiovascular Exam: Present: tachycardia, irregular rhythm (SVT), normal heart sounds. Absent: systolic murmur, diastolic murmur, rubs, gallop, clicks GI/Abdominal exam: Present: soft, normal bowel sounds. Absent: distended, tenderness, guarding, rebound, rigid Extremities exam: Present: normal inspection, full ROM, normal capillary refill. Absent: tenderness, pedal edema, joint swelling, calf tenderness Back exam: Present: normal inspection Neurological exam: Present: alert, oriented X3, CN II-XII intact Psychiatric exam: Present: normal affect, normal mood Skin exam: Present: warm, dry, intact, normal color. Absent: rash Course Vital Signs 12/03/18 12/03/18 12/03/18 15:00 17:45 18:00 Temperature 97.9 F Pulse Rate 179 H 105 H 98 Respiratory 16 14 15 Rate Blood Pressure 63/47 103/59 108/61 O2 Sat by Pulse 100 97 98 Oximetry 12/03/18 12/03/18 18:30 19:00 Temperature Pulse Rate 105 H 101 H Respiratory 16 16 Rate Blood Pressure 100/57 119/66 O2 Sat by Pulse 97 98 Oximetry - Reevaluation(s) Reevaluation #1: 12/03/18 19:03 Medical record is reviewed Reevaluation #2: 12/03/18 19:03 Patient was is significantly difficult IV start, patient was in SVT, during central line placement patient in SVT into a sinus tachycardia Reevaluation #3: 12/03/18 19:04 She has no active nausea vomiting or diarrhea here in the ER. Her has been vomiting for last 3 days with no appetite - Consultations Consultation #1: Spoke with Dr. Conway who is aware of patient and agreeable for admission EKG Findings - EKG Comments: EKG Findings:: EKGs a wide complex QRS tachycardia 175 every QRS 206, QTc 443 Procedures - Central Line Placement Right IJ Consent Obtained: verbal consent Patient Placed on Monitor/Pulse Ox: Yes Prep: mask, gown, gloves Central Line Prep: Povidone-Iodine 1% Local Anesthesia Used: Lidocaine 1% Ultrasound Used for Placement: Yes Central Line Lumen Inserted: triple Bloods Obtained for Lab: Yes Central Line Position: good blood return, all ports aspirated, flushed, capped, sutured in place with 3-0 nylon Dressing Applied: Tegaderm Post Procedure X-Ray: tip of catheter in good position (deep) Patient Tolerated Procedure: well, other (patient converted from SVT to NSR) Complications: none, transient dysrhythmias during insertion Medical Decision Making - Medical Decision Making 68-year-old female presenting for a ER for evaluation persistent nausea vomiting dehydration found to be in SVT, patient is difficult IV start we were able to get central line placed on placement did cardiovert to sinus tachycardia patient be admitted for continued resuscitation symptomatically treatment - Lab Data Result diagrams: 12/03/18 16:00 12/03/18 16:00 Lab Results 12/03/18 12/03/18 12/03/18 Range/Units 16:00 16:00 16:00 WBC 10.2 (3.8-10.6) k/uL RBC 3.91 (3.80-5.40) m/uL Hgb 9.9 L (11.4-16.0) gm/dL Hct 31.7 L (34.0-46.0) % MCV 81.0 D (80.0-100.0) fL MCH 25.2 (25.0-35.0) pg MCHC 31.1 (31.0-37.0) g/dL RDW 18.6 H (11.5-15.5) % Plt Count 436 (150-450) k/uL Neutrophils % 80 % Lymphocytes % 14 % Monocytes % 3 % Eosinophils % 1 % Basophils % 1 % Neutrophils # 8.2 H (1.3-7.7) k/uL Lymphocytes # 1.5 (1.0-4.8) k/uL Monocytes # 0.3 (0-1.0) k/uL Eosinophils # 0.1 (0-0.7) k/uL Basophils # 0.1 (0-0.2) k/uL Hypochromasia Marked Anisocytosis Slight Microcytosis Slight PT (9.0-12.0) sec INR (<1.2) APTT (22.0-30.0) sec Sodium 141 (137-145) mmol/L Potassium 3.8 (3.5-5.1) mmol/L Chloride 116 H (98-107) mmol/L Carbon Dioxide 11 L (22-30) mmol/L Anion Gap 14 mmol/L BUN 67 H (7-17) mg/dL Creatinine 2.79 H (0.52-1.04) mg/dL Est GFR (CKD-EPI)AfAm 19 (>60 ml/min/1.73 sqM) Est GFR (CKD-EPI)NonAf 17 (>60 ml/min/1.73 sqM) Glucose 115 H (74-99) mg/dL Plasma Lactic Acid Alex (0.7-2.0) mmol/L Calcium 9.0 (8.4-10.2) mg/dL Phosphorus (2.5-4.5) mg/dL Magnesium 1.7 (1.6-2.3) mg/dL Total Bilirubin 0.5 (0.2-1.3) mg/dL AST 16 (14-36) U/L ALT 17 (9-52) U/L Alkaline Phosphatase 206 H (38-126) U/L Creatine Kinase <20 L (30-135) U/L CK-MB (CK-2) 0.9 (0.0-2.4) ng/mL Troponin I <0.012 (0.000-0.034) ng/mL NT-Pro-B Natriuret Pep pg/mL Total Protein 7.4 (6.3-8.2) g/dL Albumin 3.0 L (3.5-5.0) g/dL TSH 3.060 (0.465-4.680) mIU/L 12/03/18 12/03/18 12/03/18 Range/Units 16:00 16:53 16:53 WBC (3.8-10.6) k/uL RBC (3.80-5.40) m/uL Hgb (11.4-16.0) gm/dL Hct (34.0-46.0) % MCV (80.0-100.0) fL MCH (25.0-35.0) pg MCHC (31.0-37.0) g/dL RDW (11.5-15.5) % Plt Count (150-450) k/uL Neutrophils % % Lymphocytes % % Monocytes % % Eosinophils % % Basophils % % Neutrophils # (1.3-7.7) k/uL Lymphocytes # (1.0-4.8) k/uL Monocytes # (0-1.0) k/uL Eosinophils # (0-0.7) k/uL Basophils # (0-0.2) k/uL Hypochromasia Anisocytosis Microcytosis PT 9.8 (9.0-12.0) sec INR 0.9 (<1.2) APTT 22.3 (22.0-30.0) sec Sodium (137-145) mmol/L Potassium (3.5-5.1) mmol/L Chloride (98-107) mmol/L Carbon Dioxide (22-30) mmol/L Anion Gap mmol/L BUN (7-17) mg/dL Creatinine (0.52-1.04) mg/dL Est GFR (CKD-EPI)AfAm (>60 ml/min/1.73 sqM) Est GFR (CKD-EPI)NonAf (>60 ml/min/1.73 sqM) Glucose (74-99) mg/dL Plasma Lactic Acid Alex 1.0 (0.7-2.0) mmol/L Calcium (8.4-10.2) mg/dL Phosphorus (2.5-4.5) mg/dL Magnesium (1.6-2.3) mg/dL Total Bilirubin (0.2-1.3) mg/dL AST (14-36) U/L ALT (9-52) U/L Alkaline Phosphatase (38-126) U/L Creatine Kinase (30-135) U/L CK-MB (CK-2) (0.0-2.4) ng/mL Troponin I (0.000-0.034) ng/mL NT-Pro-B Natriuret Pep 1720 pg/mL Total Protein (6.3-8.2) g/dL Albumin (3.5-5.0) g/dL TSH (0.465-4.680) mIU/L 12/03/18 Range/Units 16:53 WBC (3.8-10.6) k/uL RBC (3.80-5.40) m/uL Hgb (11.4-16.0) gm/dL Hct (34.0-46.0) % MCV (80.0-100.0) fL MCH (25.0-35.0) pg MCHC (31.0-37.0) g/dL RDW (11.5-15.5) % Plt Count (150-450) k/uL Neutrophils % % Lymphocytes % % Monocytes % % Eosinophils % % Basophils % % Neutrophils # (1.3-7.7) k/uL Lymphocytes # (1.0-4.8) k/uL Monocytes # (0-1.0) k/uL Eosinophils # (0-0.7) k/uL Basophils # (0-0.2) k/uL Hypochromasia Anisocytosis Microcytosis PT (9.0-12.0) sec INR (<1.2) APTT (22.0-30.0) sec Sodium (137-145) mmol/L Potassium (3.5-5.1) mmol/L Chloride (98-107) mmol/L Carbon Dioxide (22-30) mmol/L Anion Gap mmol/L BUN (7-17) mg/dL Creatinine (0.52-1.04) mg/dL Est GFR (CKD-EPI)AfAm (>60 ml/min/1.73 sqM) Est GFR (CKD-EPI)NonAf (>60 ml/min/1.73 sqM) Glucose (74-99) mg/dL Plasma Lactic Acid Alex (0.7-2.0) mmol/L Calcium (8.4-10.2) mg/dL Phosphorus 3.9 (2.5-4.5) mg/dL Magnesium (1.6-2.3) mg/dL Total Bilirubin (0.2-1.3) mg/dL AST (14-36) U/L ALT (9-52) U/L Alkaline Phosphatase (38-126) U/L Creatine Kinase (30-135) U/L CK-MB (CK-2) (0.0-2.4) ng/mL Troponin I (0.000-0.034) ng/mL NT-Pro-B Natriuret Pep pg/mL Total Protein (6.3-8.2) g/dL Albumin (3.5-5.0) g/dL TSH (0.465-4.680) mIU/L - Radiology Data Radiology results: report reviewed (Initial chest x-ray does show deep positioning of right IJ CVC), image reviewed Critical Care Time Critical Care Time: Yes Total Critical Care Time: 31 Disposition Clinical Impression: SVT (supraventricular tachycardia), REBECCA (acute kidney injury), Dehydration, Nausea and vomiting, Weakness Disposition: ADMITTED IP TO THIS [facility] Condition: Serious Is patient prescribed a controlled substance at d/c from ED?: No Referrals: Miles Collado MD [Primary Care Provider] - 1-2 days
[2018-12-03 16:15] LABS: Anisocytosis Slight; Basophils # (A) 0.1 k/uL (0-0.2); Basophils % (A) 1 %; Eosinophils # (A) 0.1 k/uL (0-0.7); Eosinophils % (A) 1 %; HCT 31.7 % (34.0-46.0); HGB 9.9 gm/dL (11.4-16.0); Hypochromasia Marked; Lymphocytes # (A) 1.5 k/uL (1.0-4.8); Lymphocytes % (A) 14 %; MCH 25.2 pg (25.0-35.0); MCHC 31.1 g/dL (31.0-37.0); Mean Platelet Volume 7.7; Microcytosis Slight; Monocytes # (A) 0.3 k/uL (0-1.0); Monocytes % (A) 3 %; Neutrophils # (A) 8.2 k/uL (1.3-7.7); Neutrophils % (A) 80 %; Platelet Count 436 k/uL (150-450); RBC 3.91 m/uL (3.80-5.40); RDW 18.6 % (11.5-15.5); WBC 10.2 k/uL (3.8-10.6)
[2018-12-03 16:28] LABS: ALT 17 U/L (9-52); AST 16 U/L (14-36); African American GFR (CKD) 19 (>60 ml/min/1.73 sqM); Alkaline Phosphatase 206 U/L (38-126); Anion Gap 14 mmol/L; Blood Urea Nitrogen 67 mg/dL (7-17); Carbon Dioxide 11 mmol/L (22-30); Chloride 116 mmol/L (98-107); Creatine Kinase <20 U/L (30-135); Glucose 115 mg/dL (74-99); Magnesium 1.7 mg/dL (1.6-2.3); Potassium 3.8 mmol/L (3.5-5.1); Sodium 141 mmol/L (137-145); Total Bilirubin 0.5 mg/dL (0.2-1.3); Total Protein 7.4 g/dL (6.3-8.2)
[2018-12-03 16:57] LABS: Creatine Kinase MB 0.9 ng/mL (0.0-2.4); Troponin I <0.012 ng/mL (0.000-0.034)
[2018-12-03] MEDS ORDERED: ONDANSETRON 4 MG/2 ML VIAL IVP STA (16:58)
[2018-12-03 17:11] LABS: INR 0.9 (<1.2); Prothrombin Time 9.8 sec (9.0-12.0)
[2018-12-03 17:18] LABS: Partial Thromboplastin Time 22.3 sec (22.0-30.0)
--- NOTE | 2018-12-03 17:40 | XR ---
EXAMINATION TYPE: XR chest 1V portable DATE OF EXAM: 12/03/2018 COMPARISON: 07/15/2018 HISTORY: Status post central line placement TECHNIQUE: Single frontal view of the chest is obtained. FINDINGS: There is deep placement of the right central line terminating in the high right atrium. Th is could be retracted approximately 5 cm for more optimal placement. There is rotation of the mediast inum secondary to patient positioning shifting the mediastinum to the left. Multiple overlying leads are seen. Improved right basilar atelectasis. Trace left pleural effusion remains. Generalized osseou s demineralization. IMPRESSION: Deep positioning of the right internal jugular central venous catheter within the high r ight atrium. This could be retracted approximately 5 cm for optimal placement. Improved right basilar Stable left trace pleural effusion.
[2018-12-03] MEDS ORDERED: NITROGLYCERIN SL TABS 0.4 MG TAB SUBLINGUAL PRN (19:00)
[2018-12-03] MEDS ORDERED: ASPIRIN 81 MG PO STA (19:00)
[2018-12-03 19:08] LABS: Appearance,Urine Turbid (Clear); Bacteria,Urine Many /hpf; Bilirubin,Urine Negative (Negative); Blood,Urine Small (Negative); Budding Yeast,Urine Many /hpf; Color,Urine Light Red; Glucose,Urine (UA) Negative (Negative); Ketones,Urine Negative (Negative); Leukocyte Esterase,Urine Large (Negative); Nitrite,Urine Negative (Negative); PH, Urine 7.5 (5.0-8.0); Protein,Urine 3+ (Negative); RBC,Urine 11 /hpf (0-5); Specific Gravity,Urine 1.013 (1.001-1.035); Urobilinogen,Urine <2.0 mg/dL (<2.0)
[2018-12-03] MEDS: MORPHINE SULFATE 4 MG/ML SYRINGE IV PRN (22:45)
--- NOTE | 2018-12-03 23:53 | HP ---
HISTORY AND PHYSICAL CHIEF COMPLAINT: [id number] white female came in with abdominal pain, burning with urination, frequent diarrhea, progressively losing weight, not eating or drinking and shortness of breath. Longstanding history of cancer. No recent change in her medications, alcohol or drugs. She is generalized getting weaker and losing weight and having diarrhea. She had SVT which resolved with putting a central line in from 170s down to 102. She is admitted for cardiac monitoring and workup for possible urosepsis and abdominal pain and chest pain, shortness of breath. HOME MEDICINES: 1. Synthroid 50 mcg daily. 2. Lexapro 20 daily. 3. Lasix 20 daily. ALLERGIES: 1. VANESSA INHIBITORS. 2. BACLOFEN. 3. CEFEPIME. 4. CEPHALEXIN. 5. CIPRO. 6. CLINDAMYCIN. 7. ERYTHROMYCIN. 8. LISINOPRIL. 9. LORAZEPAM. 10.FLAGYL. 11.SULFA. 12.STEROIDS. REVIEW OF SYSTEMS: Fourteen-point review of systems negative except for mentioned in HPI. PAST MEDICAL HISTORY: 1. Ureteral stenosis. 2. Hydronephrosis. 3. DVT. 4. GI bleed. 5. Liver disease. 6. Respiratory disorder. 7. Blood disorder. 8. Breast cancer x2. 9. Skin cancer, squamous melanoma. 10.Uterine cancer. 11.Lung cancer, left lower lobe. 12.C difficile. 13.Portal vein thrombosis. 14.Non-alcoholic cirrhosis. 15.Lung cancer. 16.Colitis. 17.MRSA urine. 18.Depression. SURGERIES: 1. Cholecystectomy. 2. Breast surgery. 3. Appendectomy. 4. Adenoidectomy. 5. Hysterectomy. 6. Orthopedic surgery. 7. Tonsillectomy. 8. LASIK surgery. SOCIAL HISTORY: Former smoker. No alcohol. No illicit drugs. FAMILY HISTORY: Father from shrapnel in his body in the war. Mother with stomach problems and emphysema. PHYSICAL EXAMINATION: She looks weak, fatigued. She looks her stated age. Thin, cachectic. HEENT: Normocephalic, atraumatic. Pupils equal, round, reactive. No scleral icterus. RESPIRATORY: Normal breath sounds. CARDIOVASCULAR: Irregularly irregular rhythm. GI: Soft. Mild tenderness to palpation. Distended. No guarding or rebound. LUNGS: Scattered wheeze x4. PSYCH: Normal mood and affect. SKIN: Wrinkling. Temperature 97.9, pulse 98 to 179, blood pressure O2 97% to 100% on room air. EKG: Wide-complex. ASSESSMENT: 1. Nausea, vomiting, dehydration. 2. Supraventricular tachycardia. CT scan abdomen and chest was done. 1. Acute on chronic anemia. 2. Acute on chronic renal insufficiency. 3. Chronic renal disease, stage III to IV. Lactic acid 1. 1. Dehydration. Please see further orders. Cardiology consult. CT scan abdomen and chest. Please see further orders. MMODL / IJN: [id number] /
--- NOTE | 2018-12-04 00:33 | CT ---
EXAMINATION TYPE: CT ChestAbdPelvis wo con DATE OF EXAM: 12/03/2018 COMPARISON: CT abdomen pelvis 07/02/2018 HISTORY: PAIN weight loss CT DLP: 562.1 mGycm. Automated Exposure Control for Dose Reduction was Utilized. TECHNIQUE: CT scan of the thorax, abdomen and pelvis is performed without IV contrast. FINDINGS: There is some patchy atelectasis at the lung bases. Heart size is normal. Liver shows no focal defect. Bile ducts are not dilated. Stomach is intact. Spleen appears normal. Th ere is no pancreatic mass. There are clips from cholecystectomy. There is free fluid in the abdomen and more noticeable around the right lobe of the liver. There is p ossible hepatic cirrhosis. There are bilateral ureteral stents that appear in good position. Bladder distends smoothly. There is mild bladder wall thickening. Kidneys show hydronephrosis. There is moderate atrophy and thinning of the left renal cortex. Right kidney shows no atrophy. There is no retroperitoneal adenopathy. There is no inguinal hernia. There is minimal mesenteric edema. There are some mildly distended fluid-fille d loops of small bowel that measure up to 3 cm. There is intestinal gas down to the rectum. I do not suspect a mechanical bowel obstruction. There is no sign of free air. There are surgical clips in the anterior abdomen. There is 50% anterior wedging of T10 vertebral body that appears old. There is right hip nailing. The bony pelvis appears intact. IMPRESSION: There is some pleural thickening and atelectasis at the lung bases worse on the left side and improve d compared to old exam. There is decreased pleural fluid compared to old exam. Hepatic cirrhosis. Distended multiple loops of small bowel suggestive of ileus. No free air. Mild mesenteric edema and m inimal subcutaneous edema could relate to anasarca. This is improved compared to old exam. Bilateral ureteral stents with bilateral hydronephrosis. Left renal atrophy. Kidneys unchanged. Mild bladder wall thickening could relate to cystitis. Minimal free fluid in the abdomen. There is significant improvement in the subcutaneous edema and ascites compared to last exam. There i s T10 compression fracture unchanged.
[2018-12-04] MEDS: MORPHINE SULFATE 4 MG/ML SYRINGE IV PRN ×2 (04:23→22:16)
[2018-12-04] MEDS: METOPROLOL TARTRATE 25 MG TAB PO SCH ×2 (04:31→09:27)
[2018-12-04] MEDS: SODIUM CHLORIDE 0.9% 1,000 ML IV SCH ×3 (04:31→15:48)
[2018-12-04 04:37] LABS: Anisocytosis Slight; Basophils % (A) 1 %; Eosinophils % (A) 1 %; HCT 26.1 % (34.0-46.0); Hypochromasia Marked; Lymphocytes # (A) 0.8 k/uL (1.0-4.8); Lymphocytes % (A) 12 %; MCH 23.5 pg (25.0-35.0); MCHC 28.1 g/dL (31.0-37.0); MCV 83.5 fL (80.0-100.0); Mean Platelet Volume 7.1; Monocytes # (A) 0.5 k/uL (0-1.0); Monocytes % (A) 6 %; Neutrophils # (A) 5.7 k/uL (1.3-7.7); Neutrophils % (A) 80 %; Platelet Count 285 k/uL (150-450); RBC 3.13 m/uL (3.80-5.40); WBC 7.2 k/uL (3.8-10.6)
[2018-12-04 04:56] LABS: HGB 7.3 gm/dL (11.4-16.0)
[2018-12-04 04:57] LABS: Albumin 2.3 g/dL (3.5-5.0); Cholesterol 88 mg/dL (<200); HDL Cholesterol 28 mg/dL (40-60); LDL Cholesterol,Calculated 47 mg/dL (0-99); Potassium 3.8 mmol/L (3.5-5.1); Total Bilirubin 0.3 mg/dL (0.2-1.3); Total Protein 5.8 g/dL (6.3-8.2); Triglycerides 66 mg/dL (<150)
[2018-12-04] MEDS: LEVOTHYROXINE 50 MCG TAB PO SCH (06:48)
[2018-12-04] MEDS: FUROSEMIDE 20 MG TAB PO SCH (09:26)
[2018-12-04] MEDS: ASPIRIN 325 MG TAB PO SCH (09:27)
[2018-12-04] MEDS: ESCITALOPRAM 20 MG TAB PO SCH (09:27)
--- NOTE | 2018-12-04 13:04 | P.CRDCN ---
History of Present Illness Consult date: 12/04/18 History of present illness: This is a 67-year-old female with history of recurrent urinary tract infection, and hydronephrosis lung cancer and also DVT. Patient is admitted yesterday with complaints of palpitations and shortness of breath. She is also diagnosed to have UTI. She was found to be in supraventricular tachycardia on admission. Apparently when they're putting central line, patient converted back to sinus rhythm. She was put on beta ann therapy. Since admission patient has been stable. Her troponin values showed him mildly elevation. However, the pattern is not consistent with acute coronary injury. Patient had an echocardiogram done in June of this year which showed normal LV function. Patient seemed to be reasonably comfortable at this time. We'll continue with beta ann therapy. I'll get an echocardiogram. No further cardiac workup at this time Past Medical History Past Medical History: Blood Disorder, Cancer, Deep Vein Thrombosis (DVT), GI Bleed, Liver Disease, Respiratory Disorder Additional Past Medical History / Comment(s): admit 07/27 for upper GI bleed. 09-10-14 admitted to [facility] with c/o blood in urine and rectal bleeding, DX GI BLEED AND UTI. other hx: Breast Ca x2; Skin Ca squamous and melanoma; uterine ca, lung cancer LOWER LEFT LOBE 70%, c-diff- 08-13-15 snd feb 2017, on xarelto for dvt and portal vein thrombosis. 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 Wound to BACK r/t lung CA, healed 6 months ago History of Any Multi-Drug Resistant Organisms: C-DIFF, MRSA Date of last positivie culture/infection: 09/17/17 MDRO Source:: MRSA URINE Past Surgical History: Adenoidectomy, Appendectomy, Breast Surgery, Cholecystectomy, Hysterectomy, Orthopedic Surgery, Tonsillectomy Additional Past Surgical History / Comment(s): Mastectomy bilateral; Left lower lobectomy 70%; exploratory laparotomy, LASER SX AT [facility] FOR MELANOMA- [facility]ILLIPV[facility] TLY HAS 100 SPOTS THAT THEY ARE WATCHING REMMOVED 4 SO FAR.lasik eye sx, past "abcess on back(ecoli) pt stated they had to open a channel,removed 2 ribs and some muscle and it was open to drain to 18 months". surgical repair to Right wrist, right femur, and right hip in 2018 Past Anesthesia/Blood Transfusion Reactions: No Reported Reaction Additional Past Anesthesia/Blood Transfusion Reaction / Comment(s): PAST BLOOD TRANSFUSIONS- NO COMPLICATIONS Past Psychological History: Depression Additional Psychological History / Comment(s): LOW DOSE LEXAPRO, CURRENTLY NO DEPRESSION, PT normally lives at home with her zeeshan, however currently patient resides at [facility] due to right arm and hip fractures . pt started she had just recently started working w/pt getting up w/walker and assistance and transfer w/assistance to w/c Smoking Status: Former smoker Past Alcohol Use History: None Reported Additional Past Alcohol Use History / Comment(s): STARTED SMOKING AT AGE 13, SMOKED 1 PPD SMOKED FOR 3 YEARS THEN CUT DOWN TO ONLY SMOKING WHEN OUT WITH FRIENDS.QUIT 1978. Past Drug Use History: None Reported - Past Family History Father Additional Family Medical History / Comment(s): FROM COMPLICATIONS OF SCHRAPNEL IN BODY Mother Additional Family Medical History / Comment(s): STOMACH PROBLEMS, EMPHYSEMA Medications and Allergies Home Medications Medication Instructions Recorded Confirmed Type Levothyroxine Sodium [Synthroid] 50 mcg PO DAILY@0600 07/04/17 12/03/18 History Escitalopram Oxalate [Lexapro] 20 mg PO DAILY 07/06/17 12/03/18 History Furosemide [Lasix] 20 mg PO DAILY 12/03/18 12/03/18 History Allergies Allergy/AdvReac Type Severity Reaction Status Date / Time VANESSA Inhibitors Allergy Unknown Verified 12/03/18 16:53 baclofen Allergy Confusion Verified 12/03/18 16:53 cefepime HCl [From Maxipime] Allergy Rash/Hives Verified 12/03/18 16:53 cephalexin Allergy Rash/Hives Verified 12/03/18 16:53 ciprofloxacin Allergy Rash/Hives Verified 12/03/18 16:53 clindamycin Allergy Nausea & Verified 12/03/18 16:53 Vomiting erythromycin base Allergy Rash/Hives Verified 12/03/18 16:53 heparin Allergy Unknown Verified 12/03/18 16:53 lisinopril [From Zestril] Allergy Unknown Verified 12/03/18 16:53 lorazepam [From Ativan] Allergy Confusion Verified 12/03/18 16:53 metronidazole [From Flagyl] Allergy Nausea & Verified 12/03/18 16:53 Vomiting penicillin G Allergy Rash/Hives Verified 12/03/18 16:53 shellfish derived [Shellfish] Allergy Swelling Verified 12/03/18 16:53 Sulfa (Sulfonamide Allergy Swelling Verified 12/03/18 16:53 Antibiotics) steroids Allergy Unknown Uncoded 12/03/18 15:07 Physical Exam Vitals: Vital Signs Temp Pulse Pulse Resp BP BP Pulse Ox 12/04/18 11:12 76 16 100/56 99 12/04/18 07:35 98.2 F 79 16 100/48 95 12/04/18 04:00 98.2 F 89 18 98/57 99 12/04/18 02:02 98.1 F 97 18 98/58 98 12/03/18 21:00 98.7 F 104 H 18 104/65 99 12/03/18 20:54 98.7 F 104 H 18 104/65 99 12/03/18 19:30 101 H 14 94/80 12/03/18 19:00 101 H 16 119/66 98 12/03/18 18:30 105 H 16 100/57 97 12/03/18 18:00 98 15 108/61 98 12/03/18 17:45 105 H 14 103/59 97 12/03/18 15:00 97.9 F 179 H 16 63/47 100 Intake and Output 12/03/18 12/04/18 12/04/18 22:59 06:59 14:59 Intake Total 640 Balance 640 Intake: Intake, IV Titration 400 Amount Sodium Chloride 0.9% 1, 400 000 ml @ 100 mls/hr IV . Q[facility]H [facility] Rx#:[id number] Oral 240 Other: # Voids 1 1 2 Weight 65.771 kg 64 kg GENERAL EXAM: Patient is alert and oriented and doesn't appear to be in any acute distress HEENT: Normocephalic. Normal reaction of pupils, equal size, normal range of extraocular motion. No erythema or exudates in the throat. NECK: No masses, no nuchal rigidity. CHEST: No chest wall deformity. LUNGS: Decreased air exchange HEART: S1 and S2 normal with no audible mumurs or gallops. Regular rhythm, fem orals equal on both sides.. ABDOMEN: No hepatosplenomegaly, normal bowel sounds, no guarding or rigidity. SKIN: No rashes CENTRAL NERVOUS SYSTEM: No focal deficits. EXTREMITIES: No cyanosis, clubbing or edema. Results 12/04/18 04:24 12/04/18 04:24 Cardiac Enzymes 12/03/18 12/03/18 12/03/18 Range/Units 16:00 16:00 22:13 AST 16 (14-36) U/L CK-MB (CK-2) 0.9 (0.0-2.4) ng/mL Troponin I <0.012 0.054 H* (0.000-0.034) ng/mL 12/04/18 12/04/18 Range/Units 04:24 04:24 AST 12 L (14-36) U/L CK-MB (CK-2) (0.0-2.4) ng/mL Troponin I 0.038 H* (0.000-0.034) ng/mL Coagulation 12/03/18 Range/Units 16:53 PT 9.8 (9.0-12.0) sec APTT 22.3 (22.0-30.0) sec Lipids 12/04/18 Range/Units 04:24 Triglycerides 66 (<150) mg/dL Cholesterol 88 (<200) mg/dL HDL Cholesterol 28 L (40-60) mg/dL CBC 12/03/18 12/04/18 Range/Units 16:00 04:24 WBC 10.2 7.2 (3.8-10.6) k/uL RBC 3.91 3.13 L (3.80-5.40) m/uL Hgb 9.9 L 7.3 L D (11.4-16.0) gm/dL Hct 31.7 L 26.1 L (34.0-46.0) % Plt Count 436 285 (150-450) k/uL Comprehensive Metabolic Panel 12/03/18 12/04/18 Range/Units 16:00 04:24 Sodium 141 139 (137-145) mmol/L Potassium 3.8 3.8 (3.5-5.1) mmol/L Chloride 116 H 117 H (98-107) mmol/L Carbon Dioxide 11 L 13 L (22-30) mmol/L BUN 67 H 62 H (7-17) mg/dL Creatinine 2.79 H 2.55 H (0.52-1.04) mg/dL Glucose 115 H 113 H (74-99) mg/dL Calcium 9.0 8.0 L (8.4-10.2) mg/dL AST 16 12 L (14-36) U/L ALT 17 13 (9-52) U/L Alkaline Phosphatase 206 H 142 H (38-126) U/L Total Protein 7.4 5.8 L (6.3-8.2) g/dL Albumin 3.0 L 2.3 L (3.5-5.0) g/dL Current Medications Generic Name Dose Route Start Last Admin Trade Name Freq PRN Reason Stop Dose Admin Aspirin 325 mg 12/04/18 09:00 12/04/18 09:27 Aspirin PO 325 mg DAILY [facility] Administration Escitalopram Oxalate 20 mg 12/04/18 09:00 12/04/18 09:27 Lexapro PO 20 mg DAILY [facility] Administration Furosemide 20 mg 12/04/18 09:00 12/04/18 09:26 Lasix PO 20 mg DAILY [facility] Administration Sodium Chloride 1,000 mls @ 100 mls/hr 12/03/18 19:00 12/04/18 06:51 Saline 0.9% IV 100 mls/hr .Q10H [facility] Administration Levothyroxine Sodium 50 mcg 12/04/18 06:00 12/04/18 06:48 Synthroid PO 50 mcg DAILY@0600 [facility] Administration Metoprolol Tartrate 12.5 mg 12/04/18 21:00 Lopressor PO BID [facility] Morphine Sulfate 4 mg 12/03/18 19:00 12/04/18 04:23 Morphine Sulfate (Inj) IV 4 mg Q4HR PRN Administration Chest Pain Nitroglycerin 0.4 mg 12/03/18 19:00 Nitrostat SUBLINGUAL Q5M PRN Chest Pain Intake and Output 12/03/18 12/04/18 12/04/18 22:59 06:59 14:59 Intake Total 640 Balance 640 Intake: Intake, IV Titration 400 Amount Sodium Chloride 0.9% 1, 400 000 ml @ 100 mls/hr IV . Q10H [facility] Rx#:[id number] Oral 240 Other: # Voids 1 1 2 Weight 65.771 kg 64 kg 12/04/18 04:24 12/04/18 04:24 EKG Interpretations (text) Admission EKG showed SVT Assessment and Plan (1) SVT (supraventricular tachycardia) Current Visit: Yes Status: Acute Code(s): I47.1 - SUPRAVENTRICULAR TACHYCARDIA SNOMED Code(s): 6538727 (2) Urinary tract infection Current Visit: No Status: Acute Code(s): N39.0 - URINARY TRACT INFECTION, SITE NOT SPECIFIED SNOMED Code(s): 48949266 (3) Lung cancer Current Visit: Yes Status: Acute Code(s): C34.90 - MALIGNANT NEOPLASM OF UNS P PART OF UNSP BRONCHUS OR LUNG SNOMED Code(s): 247679767 Plan: I'll get an echocardiogram. Continue beta ann therapy. If echo is normal, no further cardiac workup. Troponin elevation is nonspecific and probably related to tachycardia
[2018-12-04] MEDS ORDERED: AZTREONAM 2 GM in SODIUM CHLORIDE 0.9% 100 ML IVPB STA (17:34)
[2018-12-04] MEDS ORDERED: FLUCONAZOLE IN NACL,ISO-OSM 200 MG in SALINE 1 50ML.BAG IVPB STA (17:35)
[2018-12-04] MEDS: ACETAMINOPHEN TAB 325 MG TAB PO PRN (19:34)
--- NOTE | 2018-12-04 21:57 | P.PN ---
Subjective Progress Note Date: 12/04/18 This is a 68-year-old female admitted with acute UTI, SVT in a patient with history of lung CA and multiple other medical issues. Reports bilateral lower quadrant pain that radiates into the bilateral flanks. Reports significant nausea ,vomiting with significant weight loss over the last month from 210 pounds down to 136 pounds. Today able to tolerate diet intake with no nausea or vomiting. Reports shortness of breath with exertion. Reports bowel odor to urine. Patient converted from SVT during placement of IJ. Echo pending. CT of abdomen and pelvis suggestive of ileus, no free air, possible anasarca, bilateral hydronephrosis, kidneys unchanged, possible cystitis, minimal free fluid in the abdomen, hepatic cirrhosis. Afebrile. Hemoglobin 7.3, albumin 2.3, creatinine 2.55. Alk phos down to 142. Positive UA, culture pending. Objective - Vital Signs Vital signs: Vital Signs Temp 97.5 F L 12/04/18 15:47 Pulse 83 12/04/18 15:47 Resp 16 12/04/18 15:47 BP 89/52 12/04/18 15:47 Pulse Ox 99 12/04/18 11:12 Intake & Output 12/03/18 12/04/18 12/04/18 18:59 06:59 18:59 Intake Total 880 Balance 880 Weight 65.771 kg 64 kg Intake: Intake, IV Titration 400 Amount Sodium Chloride 0.9% 1, 400 000 ml @ 100 mls/hr IV . Q10H [facility] Rx#:[id number] Oral 480 Other: # Voids 1 2 - Exam PHYSICAL EXAM: VITAL SIGNS: As above GENERAL: Sitting up in bed, cachectic, fatigued, HEENT: Conjunctivae normal. eyes normal. NECK: No JVD. No thyroid enlargement. No LNs CARDIOVASCULAR: S1, S2 regular.. No murmur RESPIRATION: Breath sounds diminished in the bases. No rhonchi or crackles. Fine expiratory wheezing ABDOMEN: Soft, distended, mild diffuse tenderness more so to bilateral lower quadrants, bilateral flanks. No guarding. no masses palpable. No ascites, No hepatosplenomegaly.Bowel sounds heard. LEGS: No edema. no swelling , no clubbing, or cyanosis. Calves nontender. PSYCHIATRY: Alert and oriented X3, mood and affect normal. NERVOUS SYSTEM: Cranial N 2-12 grossly normal. Moves all 4 limbs. Diffuse weakness ,No focal deficits. Skin: no rash, wrinkling Joints: No active swelling. No inflammation. - Labs CBC & Chem 7: 12/04/18 04:24 12/04/18 04:24 Labs: Abnormal Lab Results - Last 24 Hours (Table) 12/03/18 12/03/18 12/04/18 Range/Units 18:52 22:13 04:24 RBC (3.80-5.40) m/uL Hgb (11.4-16.0) gm/dL Hct (34.0-46.0) % MCH (25.0-35.0) pg MCHC (31.0-37.0) g/dL RDW (11.5-15.5) % Lymphocytes # (1.0-4.8) k/uL Chloride (98-107) mmol/L Carbon Dioxide (22-30) mmol/L BUN (7-17) mg/dL Creatinine (0.52-1.04) mg/dL Glucose (74-99) mg/dL Calcium (8.4-10.2) mg/dL AST (14-36) U/L Alkaline Phosphatase (38-126) U/L Troponin I 0.054 H* 0.038 H* (0.000-0.034) ng/mL Total Protein (6.3-8.2) g/dL Albumin (3.5-5.0) g/dL HDL Cholesterol (40-60) mg/dL Urine Appearance Turbid H (Clear) Urine Protein 3+ H (Negative) Urine Blood Small H (Negative) Ur Leukocyte Esterase Large H (Negative) Urine RBC 11 H (0-5) /hpf Urine WBC >182 H (0-5) /hpf Urine WBC Clumps Many H (None) /hpf Urine Bacteria Many H (None) /hpf Urine Yeast (Budding) Many H (None) /hpf 12/04/18 12/04/18 12/04/18 Range/Units 04:24 04:24 04:24 RBC 3.13 L (3.80-5.40) m/uL Hgb 7.3 L D (11.4-16.0) gm/dL Hct 26.1 L (34.0-46.0) % MCH 23.5 L (25.0-35.0) pg MCHC 28.1 L (31.0-37.0) g/dL RDW 18.0 H (11.5-15.5) % Lymphocytes # 0.8 L (1.0-4.8) k/uL Chloride 117 H (98-107) mmol/L Carbon Dioxide 13 L (22-30) mmol/L BUN 62 H (7-17) mg/dL Creatinine 2.55 H (0.52-1.04) mg/dL Glucose 113 H (74-99) mg/dL Calcium 8.0 L (8.4-10.2) mg/dL AST 12 L (14-36) U/L Alkaline Phosphatase 142 H (38-126) U/L Troponin I (0.000-0.034) ng/mL Total Protein 5.8 L (6.3-8.2) g/dL Albumin 2.3 L (3.5-5.0) g/dL HDL Cholesterol 28 L (40-60) mg/dL Urine Appearance (Clear) Urine Protein (Negative) Urine Blood (Negative) Ur Leukocyte Esterase (Negative) Urine RBC (0-5) /hpf Urine WBC (0-5) /hpf Urine WBC Clumps (None) /hpf Urine Bacteria (None) /hpf Urine Yeast (Budding) (None) /hpf Microbiology - Last 24 Hours (Table) 12/03/18 18:52 Urine Culture - Preliminary Urine,Voided Assessment and Plan Assessment: Abdominal pain, bilateral lower quadrants with Nausea, vomiting, dehydration, weight loss -SVT -Elevated troponin, possibly related to tachycardia as per cardiology -Acute on chronic anemia -Acute on chronic renal failure, stage III to 4 -Acute UTI -Chronic anemia secondary to renal failure, iron deficiency -History of UTI with Enterobacter cloacae -Bilateral hydronephrosis in a patient with recent bilateral ureteral stent replacements. Status post bilateral ureteral stent exchange 07/04/2018. -History of Interstitial nephritis -Chronic neuropathy -Multiple history of cancers -Bibibasilar atelectasis -Hepatic cirrhosis -Possible ileus -Possible anasarca -Possible cystitis -T10 compression fracture unchanged -Moderate protein calorie malnutrition, BMI 20.8, large weight loss reported over the last month. Plan: Continue current medication regime, monitoring and symptomatically t reatment. Maintain IV antibiotics of Azactam, fluconazole. IV fluid hydration. Infectious disease, nephrology consulted. Urine culture pending Echo pending. Close monitoring of renal function, electrolytes with repeat labs ordered for a.m. Stool cultures ordered. Aggressive pulmonary toileting with incentive spirometer ordered. Dietary consulted .Follow closely with multiple consults. Prognosis guarded given multiple complex medical issues. PT/OT. Further recommendations to follow. The impression and plan of care has been dictated as directed. : I performed a history and examination of this patient, discussed the same with the dictator. I agree with the dictator's note ,documented as a scribe. Any additional findings or plans will be noted.
[2018-12-04] MEDS: METOPROLOL TARTRATE 12.5 MG TAB PO SCH (22:16)
[2018-12-04] MEDS: PANTOPRAZOLE 40 MG/10 ML VIAL IVP SCH (23:36)
[2018-12-05] MEDS: LEVOTHYROXINE 50 MCG TAB PO SCH (06:52)
[2018-12-05] MEDS: SODIUM CHLORIDE 0.9% 1,000 ML IV SCH ×2 (06:55→08:14)
[2018-12-05 07:17] LABS: Anisocytosis Slight; Basophils # (A) 0.1 k/uL (0-0.2); Basophils % (A) 2 %; Eosinophils # (A) 0.1 k/uL (0-0.7); Eosinophils % (A) 1 %; HCT 31.6 % (34.0-46.0); Hypochromasia Marked; Lymphocytes # (A) 1.1 k/uL (1.0-4.8); Lymphocytes % (A) 14 %; MCH 25.6 pg (25.0-35.0); MCHC 30.6 g/dL (31.0-37.0); MCV 83.7 fL (80.0-100.0); Mean Platelet Volume 7.3; Monocytes # (A) 0.5 k/uL (0-1.0); Monocytes % (A) 6 %; Neutrophils % (A) 77 %; Platelet Count 278 k/uL (150-450); RBC 3.77 m/uL (3.80-5.40); RDW 18.2 % (11.5-15.5); WBC 7.9 k/uL (3.8-10.6)
[2018-12-05 07:20] LABS: Albumin 2.7 g/dL (3.5-5.0); Calcium 8.1 mg/dL (8.4-10.2); Potassium 4.1 mmol/L (3.5-5.1); Total Bilirubin 0.3 mg/dL (0.2-1.3); Total Protein 6.6 g/dL (6.3-8.2)
[2018-12-05 07:34] LABS: HGB 9.7 gm/dL (11.4-16.0)
[2018-12-05] MEDS ORDERED: DEXTROSE 5% IN WATER 1,000 ML with SODIUM BICARB (1 MEQ/ML) 150 ML IV SCH (08:00)
[2018-12-05] MEDS: FUROSEMIDE 20 MG TAB PO SCH (08:12)
[2018-12-05] MEDS: ESCITALOPRAM 20 MG TAB PO SCH (08:13)
[2018-12-05] MEDS: PANTOPRAZOLE 40 MG/10 ML VIAL IVP SCH (08:13)
[2018-12-05] MEDS: METOPROLOL TARTRATE 12.5 MG TAB PO SCH ×2 (08:13→20:36)
[2018-12-05] MEDS: ASPIRIN 325 MG TAB PO SCH (08:13)
[2018-12-05 08:30] LABS: Poikilocytosis (M) Present
--- NOTE | 2018-12-05 08:55 | CONS ---
CONSULTATION REASON FOR CONSULT: Renal failure. HISTORY OF PRESENT ILLNESS: Patient is a 68-year-old female with history of chronic kidney disease, NKF stage III- IV, baseline creatinine 1.3-1.5 mg/dL secondary to obstructive uropathy with bilateral ureteral stents. Previous history of urinary tract infection. Patient was admitted to the hospital with complaints off abdominal pain, burning sensation while passing urine. Patient also had diarrhea initially, currently improved. She denied any fever, chills. She did have some nausea, but no major vomiting. PAST MEDICAL HISTORY: Significant for chronic kidney disease, obstructive uropathy, bilateral ureteral stents, history of UTI previously, history of DVT, history of GI bleed, uterine cancer, status post hysterectomy, history of breast cancer, status post mastectomy, melanoma status post resection. Previous history of C diff colitis, GI bleed. PAST SURGICAL HISTORY: Adenoidectomy, appendicectomy, cholecystectomy, hysterectomy, orthopedic surgery, tonsillectomy, mastectomy, left lower lobectomy, explorative laparotomy. SOCIAL HISTORY: Patient is a former smoker. No history of drug abuse or alcohol abuse. MEDICATIONS: Prior to admission included Synthroid, Lexapro, Lasix. ALLERGIES: Are multiple including VANESSA INHIBITORS, BACLOFEN, CEFEPIME, CEPHALEXIN, CIPRO, CLINDAMYCIN, ERYTHROMYCIN, LISINOPRIL, ATIVAN, FLAGYL, SHELLFISH, PENICILLIN, SULFA, STEROIDS. REVIEW OF SYSTEMS: As per HPI. Other systems negative. PHYSICAL EXAMINATION: Patient is comfortable, awake, alert, oriented x3, not in any acute distress. Blood pressure 95/53, heart rate 80 per minute. She is afebrile. Examination of the heart S1, S2. Examination of the lungs, bilateral breath sounds are heard. Abdomen is soft, nontender. Examination of the lower extremities shows trace edema bilaterally. ANIMAL CARE SUPERVISOR exam grossly intact. LABS: Show sodium 142, potassium 4.1, chloride 118, CO2 is 13, BUN 62, serum creatinine 2.75 mm. CAT scan shows bilateral hydronephrosis with ureteral stents, which is chronic and not new and kidneys are unchanged. There is atrophy noted on the left side. ASSESSMENT: 1. Chronic kidney disease, NKF stage III-IV, serum creatinine slightly higher than usual. The patient has had a creatinine about 1.7-1.4 in July of 2018. Etiology is chronic obstructive uropathy, bilateral ureteral stents, some degree of nephrosclerosis as well. 2. Acute kidney injury. Prerenal associated volume depletion. Will maintain patient on IV fluids and repeat labs. 3. If renal function does not continue to improve, we will consult Urology for possibly a component of obstructive uropathy. 4. Non-gap metabolic acidosis secondary to diarrhea, renal failure, as well as possibly related to obstructive uropathy. Will start patient on IV bicarb. 5. Urinary tract infection. Urine culture is growing gram-negative bacilli. Patient is maintained on antibiotics. PLAN: Start IV bicarb. Continue empiric antibiotic antibiotics. Repeat labs in a.m. Check iron profile. Previous iron saturation was only 4% in June of 2018. Thank you for this consultation. Will continue to follow the patient with you during her hospitalization. MMODL / IJN: [id number] /
[2018-12-05] MEDS ORDERED: AZTREONAM 1 GM in SODIUM CHLORIDE 0.9% 50 ML IVPB SCH (09:00)
[2018-12-05] MEDS ORDERED: FLUCONAZOLE 100 MG TAB PO SCH (09:00)
[2018-12-05] MEDS: ACETAMINOPHEN TAB 325 MG TAB PO PRN ×2 (10:29→20:34)
[2018-12-05] MEDS: FLUCONAZOLE 100 MG TAB PO SCH (10:29)
[2018-12-05] MEDS: AZTREONAM 1 GM in SODIUM CHLORIDE 0.9% 50 ML IVPB SCH ×2 (10:29→20:34)
--- NOTE | 2018-12-05 10:58 | ECHOF ---
Referral Reason:SVT MEASUREMENTS -------- HEIGHT: 175.3 cm WEIGHT: 63.5 kg BP: 100/56 RVIDd: 4.2 cm (< 3.3) IVSd: 1.0 cm (0.6 - 1.1) LVIDd: 4.5 cm (3.9 - 5.3) LVPWd: 1.0 cm (0.6 - 1.1) IVSs: 1.6 cm LVIDs: 2.8 cm LVPWs: 1.6 cm LAESV Index (A-L): 34.59 ml/m Ao Diam: 2.9 cm (2.0 - 3.7) AV Cusp: 1.6 cm (1.5 - 2.6) LA Diam: 3.4 cm (2.7 - 3.8) EPSS: 0.3 cm MV E Hugh: 0.49 m/s MV DecT: 303 ms MV A Hugh: 0.72 m/s MV E/A Ratio: 0.68 RAP: 5.00 mmHg RVSP: 19.09 mmHg MV EF SLOPE: 77.03 mm/s (70 - 150) MV EXCURSION: 1.61 cm (> 18.000) FINDINGS -------- Sinus rhythm. This was a technically adequate study. The left ventricular size is normal. Left ventricular wall thickness is normal. Overall left vent ricular systolic function is normal with, an EF between 55 - 60 %. The right ventricle is severely enlarged. LA is moderately dilated 34-39 ml/m2 The right atrial size is normal. Mobile interatrial septum. The aortic valve is trileaflet, and appears structurally normal. No aortic stenosis or regurgitation. Mild mitral annular calcification present. Mild mitral regurgitation is present. Mild tricuspid regurgitation present. There is no evidence of pulmonary hypertension. The right v entricular systolic pressure, as measured by Doppler, is 19.09mmHg. There is no pulmonic regurgitation present. The aortic root size is normal. IVC not well visualized There is no pericardial effusion. CONCLUSIONS -------- 1. Sinus rhythm. 2. The left ventricular size is normal. 3. Left ventricular wall thickness is normal. 4. Overall left ventricular systolic function is normal with, an EF between 55 - 60 %. 5. 6. The right ventricle is severely enlarged. 7. LA is moderately dilated 34-39 ml/m2 8. Mobile interatrial septum. 9. The aortic valve is trileaflet, and appears structurally normal. No aortic stenosis or regurgitati on. 10. Mild mitral annular calcification present. 11. Mild mitral regurgitation is present. 12. Mild tricuspid regurgitation present. 13. There is no evidence of pulmonary hypertension. 14. There is no pulmonic regurgitation present. 15. The aortic root size is normal. 16. IVC not well visualized 17. There is no pericardial effusion. CAPACITY ANALYST: Fern Davis RDCS
[2018-12-05] MEDS: DEXTROSE 5% IN WATER 1,000 ML with SODIUM BICARB (1 MEQ/ML) 150 ML IV SCH (11:25)
[2018-12-05 13:29] VITALS: BMI 22.0
--- NOTE | 2018-12-05 13:51 | P.GSCN ---
History of Present Illness Consult date: 12/05/18 Reason for Consult: abnormal CT scan Requesting physician: Jena Cohen History of present illness: CHIEF COMPLAINT: Abnormal computed tomography scan HISTORY OF PRESENT ILLNESS: 68-year-old female who is admitted to hospital secondary to urinary tract infection and SVT. General surgery consulted secondary to abnormal CT scan. Patient examined at the bedside. She reports suprapubic tenderness. She states her urine has a very foul odor. She denies nausea or vomiting. She has been tolerating diet. She does report a large weight loss of almost 100 pounds over the last year. She reports soft stools over the last few weeks. Denies constipation. PAST MEDICAL HISTORY: See list. PAST SURGICAL HISTORY: See list. SOCIAL HISTORY: No illicit drug use. REVIEW OF SYSTEMS: CONSTITUTIONAL: Denies fever or chills. HEENT: Denies blurred vision, vision changes, or eye pain. Denies hemoptysis CARDIOVASCULAR: Denies chest pain or pressure. RESPIRATORY: No shortness of breath. GASTROINTESTINAL: Refer to HPI for pertinent findings HEMATOLOGIC: Denies bleeding disorders. GENITOURINARY: Denies any blood in urine. SKIN: Denies pruitis. Denies rash. PHYSICAL EXAM: VITAL SIGNS: Reviewed. GENERAL: Well-developed in no acute distress. HEENT: No sclera icterus. Extraocular movements grossly intact. Moist buccal mucosa. Head is atraumatic, normocephalic. ABDOMEN: Soft. Nondistended. Tenderness with palpation to suprapubic region. NEUROLOGIC: Alert and oriented. Cranial nerves II through XII grossly intact. LABORATORY DATA: WBC 7.9. Hemoglobin 9.7. Platelet count 278. IMAGING: CT abdomen and pelvis completed reveals hepatic cirrhosis. Distended multiple loops of small bowel suggestive of ileus. No free air. Mild mesenteric edema and minimal subcutaneous edema could relate anasarca. ASSESSMENT: 1. Urinary tract infection 2. Ileus, suspect secondary to urinary tract infection, no evidence of mechanical bowel obstruction PLAN: 1. Continue diet as tolerated 2. Continue antibiotics for UTI 3. No surgical intervention recommended. Expect ileus to resolve with resolution of UTI. Nurse practitioner note has been reviewed by physician. Signing provider agrees with the documented findings, assessment, and plan of care. Past Medical History Past Medical History: Blood Disorder, Cancer, Deep Vein Thrombosis (DVT), GI Bleed, Liver Disease, Respiratory Disorder Additional Past Medical History / Comment(s): admit 07/27 for upper GI bleed. 09-10-14 admitted to [facility] with c/o blood in urine and rectal bleeding, DX GI BLEED AND UTI. other hx: Breast Ca x2; Skin Ca squamous and melanoma; uterine ca, lung cancer LOWER LEFT LOBE 70%, c-diff- 6-5-15 snd feb 2017, on xarelto for dvt and portal vein thrombosis. 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 Wound to BACK r/t lung CA, healed 6 months ago History of Any Multi-Drug Resistant Organisms: C-DIFF, MRSA Year Discovered:: 09/17/17 MDRO Source:: MRSA URINE Past Surgical History: Adenoidectomy, Appendectomy, Breast Surgery, Cholecystectomy, Hysterectomy, Orthopedic Surgery, Tonsillectomy Additional Past Surgical History / Comment(s): Mastectomy bilateral; Left lower lobectomy 70%; exploratory laparotomy, [facility] SX AT [facility]ELANOMA- CURRENTLY HAS 100 SPOTS THAT THEY ARE WATCHING REMMOVED 4 SO FAR.lasik eye sx, past "abcess on back(ecoli) pt stated they had to open a channel,removed 2 ribs and some muscle and it was open to drain to 18 months". surgical repair to Right wrist, right femur, and right hip in 2018 Past Anesthesia/Blood Transfusion Reactions: No Reported Reaction Additional Past Anesthesia/Blood Transfusion Reaction / Comm: PAST BLOOD TRANSFUSIONS- NO COMPLICATIONS Past Psychological History: Depression Additional Psychological History / Comment(s): LOW DOSE LEXAPRO, CURRENTLY NO DEPRESSION, PT normally lives at home with her zeeshan, however currently patient resides at [facility] due to right arm and hip fractures . pt started she had just recently started working w/pt getting up w/walker and assistance and transfer w/assistance to w/c Smoking Status: Former smoker Past Alcohol Use History: None Reported Additional Past Alcohol Use History / Comment(s): STARTED SMOKING AT AGE 13, SMOKED 1 PPD SMOKED FOR 3 YEARS THEN CUT DOWN TO ONLY SMOKING WHEN OUT WITH FRIENDS.QUIT 1978. Past Drug Use History: None Reported - Past Family History Father Additional Family Medical History / Comment(s): FROM COMPLICATIONS OF SCHRAPNEL IN BODY Mother Additional Family Medical History / Comment(s): STOMACH PROBLEMS, EMPHYSEMA Medications and Allergies Home Medications Medication Instructions Recorded Confirmed Type Levothyroxine Sodium [Synthroid] 50 mcg PO DAILY@0600 07/04/17 12/03/18 History Escitalopram Oxalate [Lexapro] 20 mg PO DAILY 07/06/17 12/03/18 History Furosemide [Lasix] 20 mg PO DAILY 12/03/18 12/03/18 History Allergies Allergy/AdvReac Type Severity Reaction Status Date / Time VANESSA Inhibitors Allergy Unknown Verified 12/03/18 16:53 baclofen Allergy Confusion Verified 12/03/18 16:53 cefepime HCl [From Maxipime] Allergy Rash/Hives Verified 12/03/18 16:53 cephalexin Allergy Rash/Hives Verified 12/03/18 16:53 ciprofloxacin Allergy Rash/Hives Verified 12/03/18 16:53 clindamycin Allergy Nausea & Verified 12/03/18 16:53 Vomiting erythromycin base Allergy Rash/Hives Verified 12/03/18 16:53 heparin Allergy Unknown Verified 12/03/18 16:53 lisinopril [From Zestril] Allergy Unknown Verified 12/03/18 16:53 lorazepam [From Ativan] Allergy Confusion Verified 12/03/18 16:53 metronidazole [From Flagyl] Allergy Nausea & Verified 12/03/18 16:53 Vomiting penicillin G Allergy Rash/Hives Verified 12/03/18 16:53 shellfish derived [Shellfish] Allergy Swelling Verified 12/03/18 16:53 Sulfa (Sulfonamide Allergy Swelling Verified 12/03/18 16:53 Antibiotics) steroids Allergy Unknown Uncoded 12/03/18 15:07 Surgical - Exam Vital Signs Temp Pulse Resp BP Pulse Ox 97.9 F 179 H 16 63/47 100 12/03/18 15:00 12/03/18 15:00 12/03/18 15:00 12/03/18 15:00 12/03/18 15:00 Results - Labs 12/05/18 06:17 12/05/18 06:17 Abnormal Lab Results - Last 24 Hours (Table) 12/05/18 12/05/18 Range/Units 06:17 06:17 RBC 3.77 L (3.80-5.40) m/uL Hgb 9.7 L D (11.4-16.0) gm/dL Hct 31.6 L (34.0-46.0) % MCHC 30.6 L (31.0-37.0) g/dL RDW 18.2 H (11.5-15.5) % Chloride 118 H (98-107) mmol/L Carbon Dioxide 13 L (22-30) mmol/L BUN 62 H (7-17) mg/dL Creatinine 2.75 H (0.52-1.04) mg/dL Calcium 8.1 L (8.4-10.2) mg/dL Alkaline Phosphatase 161 H (38-126) U/L Albumin 2.7 L (3.5-5.0) g/dL Microbiology - Last 24 Hours (Table) 12/03/18 18:52 Urine Culture - Preliminary Urine,Voided Gram Neg Bacilli Diabetes panel 12/05/18 Range/Units 06:17 Sodium 142 (137-145) mmol/L Potassium 4.1 (3.5-5.1) mmol/L Chloride 118 H (98-107) mmol/L Carbon Dioxide 13 L (22-30) mmol/L BUN 62 H (7-17) mg/dL Creatinine 2.75 H (0.52-1.04) mg/dL Glucose 88 (74-99) mg/dL Calcium 8.1 L (8.4-10.2) mg/dL AST 14 (14-36) U/L ALT 10 (9-52) U/L Alkaline Phosphatase 161 H (38-126) U/L Total Protein 6.6 (6.3-8.2) g/dL Albumin 2.7 L (3.5-5.0) g/dL Calcium panel 12/05/18 Range/Units 06:17 Calcium 8.1 L (8.4-10.2) mg/dL Albumin 2.7 L (3.5-5.0) g/dL Pituitary panel 12/05/18 Range/Units 06:17 Sodium 142 (137-145) mmol/L Potassium 4.1 (3.5-5.1) mmol/L Chloride 118 H (98-107) mmol/L Carbon Dioxide 13 L (22-30) mmol/L BUN 62 H (7-17) mg/dL Creatinine 2.75 H (0.52-1.04) mg/dL Glucose 88 (74-99) mg/dL Calcium 8.1 L (8.4-10.2) mg/dL Adrenal panel 12/05/18 Range/Units 06:17 Sodium 142 (137-145) mmol/L Potassium 4.1 (3.5-5.1) mmol/L Chloride 118 H (98-107) mmol/L Carbon Dioxide 13 L (22-30) mmol/L BUN 62 H (7-17) mg/dL Creatinine 2.75 H (0.52-1.04) mg/dL Glucose 88 (74-99) mg/dL Calcium 8.1 L (8.4-10.2) mg/dL Total Bilirubin 0.3 (0.2-1.3) mg/dL AST 14 (14-36) U/L ALT 10 (9-52) U/L Alkaline Phosphatase 161 H (38-126) U/L Total Protein 6.6 (6.3-8.2) g/dL Albumin 2.7 L (3.5-5.0) g/dL
--- NOTE | 2018-12-05 15:20 | P.CONS ---
History of Present Illness - Reason for Consult Consult date: 12/04/18 Urinary tract infection and multiple antibiotic ALLERGIES Requesting physician: Miles Collado - Chief Complaint Abdominal pain and burning urination times few days - History of Present Illness Patient is a 68-year-old female with a past medical history significa nt for complicated urinary tract infection in this patient who did have a bilateral ureteral stents for bilateral hydronephrosis and history of recurrent UTI the patient also have multiple antibiotic ALLERGIES patient presented to [facility] yesterday with chief complaints of lower abdominal pain and burning with urination symptom has been going on for a few days before she was in the hospital the patient be complaining of cloudy foul-smelling urine with burning and frequency patient did have some suprapubic discomfort and lower abdominal pain more of a dull aching intensity about 5-6 out of 10 and no radiation patient has felt nauseated but no vomiting the patient did have chills and fever with these symptoms the patient was evaluated by the ER physician, the patient did have a CT chest abdominal parasite did show some pleural thickening atelectasis in lung bases worse on the left side and apparently improved compared to last exam, also there was evidence of distended multiple loops of small bowel suggestive of ileus bilateral ureteral stents and bilateral hydronephrosis left renal atrophy mild bladder wall thickening, patient presentation hospital was afebrile her white count was normal she did have a positive UA with large leukocyte estrace and many WBC because of her multiple antibiotic ALLERGIES infectious disease was consulted for further recommendation regarding antibiotic therapy Review of Systems Positive point has been mentioned in the HPI rest of the systems are negative Past Medical History Past Medical History: Blood Disorder, Cancer, Deep Vein Thrombosis (DVT), GI Bleed, Liver Disease, Respiratory Disorder Additional Past Medical History / Comment(s): admit 07/27 for upper GI bleed. 7-3-15 admitted to [facility] with c/o blood in urine and rectal bleeding, DX GI BLEED AND UTI. other hx: Breast Ca x2; Skin Ca squamous and melanoma; uterine ca, lung cancer LOWER LEFT LOBE 70%, c-diff- 6-5-15 snd feb 2017, on xarelto for dvt and portal vein thrombosis. 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 Wound to BACK r/t lung CA, healed 6 months ago History of Any Multi-Drug Resistant Organisms: C-DIFF, MRSA Year Discovered:: 09/17/17 MDRO Source:: MRSA URINE Past Surgical History: Adenoidectomy, Appendectomy, Breast Surgery, Cholecystectomy, Hysterectomy, Orthopedic Surgery, Tonsillectomy Additional Past Surgical History / Comment(s): Mastectomy bilateral; Left lower lobectomy 70%; exploratory laparotomy, LASER SX AT [facility] FOR MELANOMA- CURRENTLY HAS 100 SPOTS THAT THEY ARE WATCHING REMMOVED 4 SO FAR.lasik eye sx, past "abcess on back(ecoli) pt stated they had to open a channel,removed 2 ribs and some muscle and it was open to drain to 18 months". surgical repair to Right wrist, right femur, and right hip in 2018 Past Anesthesia/Blood Transfusion Reactions: No Reported Reaction Additional Past Anesthesia/Blood Transfusion Reaction / Comm: PAST BLOOD TRANSFUSIONS- NO COMPLICATIONS Past Psychological History: Depression Additional Psychological History / Comment(s): LOW DOSE LEXAPRO, CURRENTLY NO DEPRESSION, PT normally lives at home with her zeeshan, however currently patient resides at [facility] due to right arm and hip fractures . pt started she had just recently started working w/pt getting up w/walker and assistance and transfer w/assistance to w/c Smoking Status: Former smoker Past Alcohol Use History: None Reported Additional Past Alcohol Use History / Comment(s): STARTED SMOKING AT AGE 13, SMOKED 1 PPD SMOKED FOR 3 YEARS THEN CUT DOWN TO ONLY SMOKING WHEN OUT WITH FRIENDS.QUIT 1978. Past Drug Use History: None Reported - Past Family History Father Additional Family Medical History / Comment(s): FROM COMPLICATIONS OF SCHRAPNEL IN BODY Mother Additional Family Medical History / Comment(s): STOMACH PROBLEMS, EMPHYSEMA Medications and Allergies Home Medications Medication Instructions Recorded Confirmed Type Levothyroxine Sodium [Synthroid] 50 mcg PO DAILY@0600 07/04/17 12/03/18 History Escitalopram Oxalate [Lexapro] 20 mg PO DAILY 07/06/17 12/03/18 History Furosemide [Lasix] 20 mg PO DAILY 12/03/18 12/03/18 History Allergies Allergy/AdvReac Type Severity Reaction Status Date / Time VANESSA Inhibitors Allergy Unknown Verified 12/03/18 16:53 baclofen Allergy Confusion Verified 12/03/18 16:53 cefepime HCl [From Maxipime] Allergy Rash/Hives Verified 12/03/18 16:53 cephalexin Allergy Rash/Hives Verified 12/03/18 16:53 ciprofloxacin Allergy Rash/Hives Verified 12/03/18 16:53 clindamycin Allergy Nausea & Verified 12/03/18 16:53 Vomiting erythromycin base Allergy Rash/Hives Verified 12/03/18 16:53 heparin Allergy Unknown Verified 12/03/18 16:53 lisinopril [From Zestril] Allergy Unknown Verified 12/03/18 16:53 lorazepam [From Ativan] Allergy Confusion Verified 12/03/18 16:53 metronidazole [From Flagyl] Allergy Nausea & Verified 12/03/18 16:53 Vomiting penicillin G Allergy Rash/Hives Verified 12/03/18 16:53 shellfish derived [Shellfish] Allergy Swelling Verified 12/03/18 16:53 Sulfa (Sulfonamide Allergy Swelling Verified 12/03/18 16:53 Antibiotics) steroids Allergy Unknown Uncoded 12/03/18 15:07 Physical Exam Vitals: Vital Signs Temp Pulse Pulse Resp BP BP Pulse Ox 12/04/18 15:47 97.5 F L 83 16 89/52 12/04/18 11:12 76 16 100/56 99 12/04/18 07:35 98.2 F 79 16 100/48 95 12/04/18 04:00 98.2 F 89 18 98/57 99 12/04/18 02:02 98.1 F 97 18 98/58 98 12/03/18 21:00 98.7 F 104 H 18 104/65 99 12/03/18 20:54 98.7 F 104 H 18 104/65 99 12/03/18 19:30 101 H 14 94/80 12/03/18 19:00 101 H 16 119/66 98 12/03/18 18:30 105 H 16 100/57 97 12/03/18 18:00 98 15 108/61 98 12/03/18 17:45 105 H 14 103/59 97 Intake and Output 12/04/18 12/04/18 12/04/18 06:59 14:59 22:59 Intake Total 880 Balance 880 Intake: Intake, IV Titration 400 Amount Sodium Chloride 0.9% 1, 400 000 ml @ 100 mls/hr IV . Q10H [facility] Rx#:[id number] Oral 480 Other: # Voids 1 2 Weight 64 kg GENERAL DESCRIPTION: An elderly female lying in bed, no distress. No tachypnea or accessory muscle of respiration use. HEENT: Shows Pallor , no scleral icterus. Oral mucous membrane is dry. No pharyngeal erythema or thrush NECK: Trachea central, no thyromegaly. LUNGS: Unlabored breathing. Decreased breath sound at the base. No wheeze or crackle. HEART: S1, S2, regular rate and rhythm. No loud murmur ABDOMEN: Soft, mild lower abdominal tenderness , no guarding or rigidity, no organomegaly EXTREMITIES: No edema of feet. SKIN: No rash, no masses palpable. NEUROLOGICAL: The patient is awake, alert, oriented x3, mood and affect normal. Results CBC & Chem 7: 12/05/18 06:17 12/05/18 06:17 Labs: Abnormal Lab Results - Last 24 Hours (Table) 12/03/18 12/03/18 12/03/18 Range/Units 16:00 18:52 22:13 RBC (3.80-5.40) m/uL Hgb (11.4-16.0) gm/dL Hct (34.0-46.0) % MCH (25.0-35.0) pg MCHC (31.0-37.0) g/dL RDW (11.5-15.5) % Lymphocytes # (1.0-4.8) k/uL Chloride 116 H (98-107) mmol/L Carbon Dioxide 11 L (22-30) mmol/L BUN 67 H (7-17) mg/dL Creatinine 2.79 H (0.52-1.04) mg/dL Glucose 115 H (74-99) mg/dL Calcium (8.4-10.2) mg/dL AST (14-36) U/L Alkaline Phosphatase 206 H (38-126) U/L Creatine Kinase <20 L (30-135) U/L Troponin I 0.054 H* (0.000-0.034) ng/mL Total Protein (6.3-8.2) g/dL Albumin 3.0 L (3.5-5.0) g/dL HDL Cholesterol (40-60) mg/dL Urine Appearance Turbid H (Clear) Urine Protein 3+ H (Negative) Urine Blood Small H (Negative) Ur Leukocyte Esterase Large H (Negative) Urine RBC 11 H (0-5) /hpf Urine WBC >182 H (0-5) /hpf Urine WBC Clumps Many H (None) /hpf Urine Bacteria Many H (None) /hpf Urine Yeast (Budding) Many H (None) /hpf 12/04/18 12/04/18 12/04/18 Range/Units 04:24 04:24 04:24 RBC 3.13 L (3.80-5.40) m/uL Hgb 7.3 L D (11.4-16.0) gm/dL Hct 26.1 L (34.0-46.0) % MCH 23.5 L (25.0-35.0) pg MCHC 28.1 L (31.0-37.0) g/dL RDW 18.0 H (11.5-15.5) % Lymphocytes # 0.8 L (1.0-4.8) k/uL Chloride (98-107) mmol/L Carbon Dioxide (22-30) mmol/L BUN (7-17) mg/dL Creatinine (0.52-1.04) mg/dL Glucose (74-99) mg/dL Calcium (8.4-10.2) mg/dL AST (14-36) U/L Alkaline Phosphatase (38-126) U/L Creatine Kinase (30-135) U/L Troponin I 0.038 H* (0.000-0.034) ng/mL Total Protein (6.3-8.2) g/dL Albumin (3.5-5.0) g/dL HDL Cholesterol 28 L (40-60) mg/dL Urine Appearance (Clear) Urine Protein (Negative) Urine Blood (Negative) Ur Leukocyte Esterase (Negative) Urine RBC (0-5) /hpf Urine WBC (0-5) /hpf Urine WBC Clumps (None) /hpf Urine Bacteria (None) /hpf Urine Yeast (Budding) (None) /hpf 12/04/18 Range/Units 04:24 RBC (3.80-5.40) m/uL Hgb (11.4-16.0) gm/dL Hct (34.0-46.0) % MCH (25.0-35.0) pg MCHC (31.0-37.0) g/dL RDW (11.5-15.5) % Lymphocytes # (1.0-4.8) k/uL Chloride 117 H (98-107) mmol/L Carbon Dioxide 13 L (22-30) mmol/L BUN 62 H (7-17) mg/dL Creatinine 2.55 H (0.52-1.04) mg/dL Glucose 113 H (74-99) mg/dL Calcium 8.0 L (8.4-10.2) mg/dL AST 12 L (14-36) U/L Alkaline Phosphatase 142 H (38-126) U/L Creatine Kinase (30-135) U/L Troponin I (0.000-0.034) ng/mL Total Protein 5.8 L (6.3-8.2) g/dL Albumin 2.3 L (3.5-5.0) g/dL HDL Cholesterol (40-60) mg/dL Urine Appearance (Clear) Urine Protein (Negative) Urine Blood (Negative) Ur Leukocyte Esterase (Negative) Urine RBC (0-5) /hpf Urine WBC (0-5) /hpf Urine WBC Clumps (None) /hpf Urine Bacteria (None) /hpf Urine Yeast (Budding) (None) /hpf Microbiology - Last 24 Hours (Table) 12/03/18 18:52 Urine Culture - Preliminary Urine,Voided Assessment and Plan Assessment: 1-patient presenting to the hospital with lower abdominal pain and cloudy and foul-smelling urine in addition to burning likely representing a symptomatic urinary tract infection and likely from enteric gram-negative pathogen 2-Patient with multiple antibiotic ALLERGIES that would limit the number of antibiotic safe to use 3-renal insufficiency with a creatinine clearance of 21 mL per minute and high risk of nephrotoxicity from certain antibiotics (1) Allergy to multiple antibiotics Current Visit: Yes Status: Acute Code(s): Z88.1 - ALLERGY STATUS TO OTHER ANTIBIOTIC AGENTS STATUS SNOMED Code(s): 926087028500850 (2) Urinary tract infection Current Visit: No Status: Acute Code(s): N39.0 - URINARY TRACT INFECTION, SITE NOT SPECIFIED SNOMED Code(s): 44813300 Plan: 1-Azactam 2 g 1 and then 1 g every 12 follow her dose has been adjusted for creatinine clearance of 21 mL per minute 2-Diflucan 200 mg 1 and then 100 mg daily 3-gentle IV fluid We will follow on clinical condition and cultures to further adjust medication if needed Thank you for this consultation will follow this patient with you Time with Patient: Greater than 30
[2018-12-05 16:39] LABS: Iron Saturation 3.75 (12.00-45.00)
--- NOTE | 2018-12-05 17:35 | P.PN ---
Subjective Progress Note Date: 12/05/18 This patient with history of lung cancer being treated with chemotherapy and also immunotherapy was admitted to the hospital with palpitations and evidence of SVT. Patient converted while internal jugular line was being placed to sinus rhythm. Patient remained in sinus rhythm. She was initiated on beta ann. Tolerating very well. We'll continue current medical therapy and we'll be seeing her on when necessary basis. Echo showed normal LV function Objective - Vital Signs Vital signs: Vital Signs Temp 98.6 F 12/05/18 07:43 Pulse 76 12/05/18 15:00 Resp 16 12/05/18 15:00 BP 92/53 12/05/18 15:00 Pulse Ox 99 12/05/18 15:00 Intake & Output 12/04/18 12/05/18 12/05/18 18:59 06:59 18:59 Intake Total 1000 750 Balance 1000 750 Weight 67.7 kg 67.7 kg Intake: Intake, IV Titration 400 750 Amount Aztreonam 1 gm In Sodium 50 Chloride 0.9% 50 ml @ 100 mls/hr IVPB Q12HR [facility] Rx #:[id number] Dextrose 5% in Water 1, 200 000 ml @ 100 mls/hr IV . [id number] [facility] with Sodium Bicarb (1 Meq/ml) 150 ml Rx#:[id number] Sodium Chloride 0.9% 1, 400 500 000 ml @ 100 mls/hr IV . Q10H [facility] Rx#:[id number] Oral 600 Other: Voiding Method Toilet # Voids 2 1 2 - Exam GENERAL EXAM: Patient is alert and oriented and doesn't appear to be in any acute distress HEENT: Normocephalic. Normal reaction of pupils, equal size, normal range of extraocular motion. No erythema or exudates in the throat. NECK: No masses, no nuchal rigidity. CHEST: No chest wall deformity. LUNGS: Diminished breath sounds HEART: S1 and S2 normal with no audible mumurs or gallops. Regular rhythm, femorals equal on both sides.. ABDOMEN: No hepatosplenomegaly, normal bowel sounds, no guarding or rigidity. SKIN: No rashes CENTRAL NERVOUS SYSTEM: No focal deficits. EXTREMITIES: No cyanosis, clubbing or edema. - Labs CBC & Chem 7: 12/05/18 06:17 12/05/18 06:17 Labs: Abnormal Lab Results - Last 24 Hours (Table) 12/05/18 12/05/18 12/05/18 Range/Units 06:17 06:17 06:17 RBC 3.77 L (3.80-5.40) m/uL Hgb 9.7 L D (11.4-16.0) gm/dL Hct 31.6 L (34.0-46.0) % MCHC 30.6 L (31.0-37.0) g/dL RDW 18.2 H (11.5-15.5) % Chloride 118 H (98-107) mmol/L Carbon Dioxide 13 L (22-30) mmol/L BUN 62 H (7-17) mg/dL Creatinine 2.75 H (0.52-1.04) mg/dL Calcium 8.1 L (8.4-10.2) mg/dL Iron 9 L (50-170) ug/dL Iron Saturation 3.75 L (12.00-45.00) Alkaline Phosphatase 161 H (38-126) U/L Albumin 2.7 L (3.5-5.0) g/dL Microbiology - Last 24 Hours (Table) 12/03/18 18:52 Urine Culture - Preliminary Urine,Voided Gram Neg Bacilli Assessment and Plan (1) SVT (supraventricular tachycardia) Current Visit: Yes Status: Acute Code(s): I47.1 - SUPRAVENTRICULAR TACHYCARDIA SNOMED Code(s): 3620794 (2) Urinary tract infection Current Visit: No Status: Acute Code(s): N39.0 - URINARY TRACT INFECTION, SITE NOT SPECIFIED SNOMED Code(s): 58901303 (3) Lung cancer Current Visit: Yes Status: Acute Code(s): C34.90 - MALIGNANT NEOPLASM OF UNSP PART OF UNSP BRONCHUS OR LUNG SNOMED Code(s): 526435116 Plan: Patient hasn't had any recurrence of SVT. Tolerating beta ann. Echo showed normal LV function. We'll follow as needed
--- NOTE | 2018-12-05 17:49 | PN ---
PROGRESS NOTE DATE OF SERVICE: 12/05/2018 REASON FOR FOLLOWUP: Complicated urinary tract infection. INTERVAL HISTORY: The patient is currently afebrile. The patient is breathing comfortably. She is still complaining of some abdominal discomfort and foul-smelling urine. No worsening, though. No diarrhea. No chest pain, shortness of breath or cough. PHYSICAL EXAMINATION: Blood pressure is 95/53 with a pulse of 70, temperature 98.6. He is 98% on room air. General description is an elderly female up in the room in no distress. RESPIRATORY SYSTEM: Unlabored breathing. Clear to auscultation anteriorly. HEART: S1, S2. Regular rate and rhythm. ABDOMEN: Soft. No tenderness. LABS: Hemoglobin 9.7, white count 7.9. BUN of 62, creatinine 2.75. Urine showing a gram- negative. DIAGNOSTIC IMPRESSION AND PLAN: Patient with gram-negative complicated urinary tract infection with a previous history of urinary tract infections. Review of the micro data shows sensitive pathogen; however, the patient does have MULTIPLE ANTIBIOTIC ALLERGIES. Patient is currently covered with Azactam and Diflucan; to continue while waiting for the culture to finalize. Continue with supportive care. MMODL / IJN: [id number] /
--- NOTE | 2018-12-05 22:07 | PN ---
PROGRESS NOTE SUBJECTIVE: This is a 68-year-old white female who is admitted with drug-resistant UTI on IV Azactam. Consistent improvement from medical standpoint. No chest pain. No shortness of breath. Strength is slowly improving. Diet is slowly improving. CARDIOVASCULAR: S1, S2. HEMATOLOGY: Negative Homans. PSYCH: Fair mood and affect. NEUROLOGIC: Alert and oriented x3. ASSESSMENT: 1. Drug-resistant urinary tract infection. 2. History of breast cancer. 3. Cirrhosis. 4. Recurrent supraventricular tachycardia. Continue broad-spectrum antibiotics. Cover with Azactam and Diflucan. Continue with supportive care. Possibly send up to cardiac floor. MMODL / IJN: [id number] /
[2018-12-06] MEDS: DEXTROSE 5% IN WATER 1,000 ML with SODIUM BICARB (1 MEQ/ML) 150 ML IV SCH ×3 (00:02→20:39)
[2018-12-06 06:32] LABS: Anisocytosis Slight; Basophils # (A) 0.1 k/uL (0-0.2); Basophils % (A) 1 %; Eosinophils # (A) 0.1 k/uL (0-0.7); Eosinophils % (A) 2 %; HCT 24.3 % (34.0-46.0); Hypochromasia Marked; Lymphocytes # (A) 0.8 k/uL (1.0-4.8); Lymphocytes % (A) 15 %; MCH 24.9 pg (25.0-35.0); MCHC 30.5 g/dL (31.0-37.0); MCV 81.7 fL (80.0-100.0); Mean Platelet Volume 7.7; Microcytosis Slight; Monocytes # (A) 0.4 k/uL (0-1.0); Monocytes % (A) 7 %; Neutrophils # (A) 3.7 k/uL (1.3-7.7); Neutrophils % (A) 73 %; Platelet Count 232 k/uL (150-450); RBC 2.97 m/uL (3.80-5.40); RDW 18.1 % (11.5-15.5); WBC 5.1 k/uL (3.8-10.6)
[2018-12-06 06:44] LABS: HGB 7.4 gm/dL (11.4-16.0)
[2018-12-06 06:47] LABS: Albumin 2.1 g/dL (3.5-5.0); Calcium 7.3 mg/dL (8.4-10.2); Total Bilirubin 0.3 mg/dL (0.2-1.3); Total Protein 5.2 g/dL (6.3-8.2)
[2018-12-06] MEDS: PANTOPRAZOLE 40 MG TABLET PO SCH (06:47)
[2018-12-06] MEDS: LEVOTHYROXINE 50 MCG TAB PO SCH (06:47)
[2018-12-06] MEDS: ASPIRIN 325 MG TAB PO SCH (08:28)
[2018-12-06] MEDS: FLUCONAZOLE 100 MG TAB PO SCH (08:28)
[2018-12-06] MEDS: METOPROLOL TARTRATE 12.5 MG TAB PO SCH ×2 (08:28→20:38)
[2018-12-06] MEDS: ESCITALOPRAM 20 MG TAB PO SCH (08:28)
[2018-12-06] MEDS: ACETAMINOPHEN TAB 325 MG TAB PO PRN ×2 (08:29→20:38)
[2018-12-06] MEDS: AZTREONAM 1 GM in SODIUM CHLORIDE 0.9% 50 ML IVPB SCH ×2 (08:30→20:39)
[2018-12-06] MEDS: MORPHINE SULFATE 4 MG/ML SYRINGE IV PRN ×2 (09:48→16:11)
--- NOTE | 2018-12-06 13:01 | P.PN ---
Subjective Progress Note Date: 12/06/18 Seen and examined for the follow-up of acute kidney injury. Creatinine slowly rising. Still has abdominal pain. No nausea vomiting diarrhea. 1800 ML of urine output in the last 24 hours. Objective - Vital Signs Vital signs: Vital Signs Temp 98.2 F 12/06/18 07:00 Pulse 86 12/06/18 08:00 Resp 16 12/06/18 08:00 BP 104/58 12/06/18 07:00 Pulse Ox 97 12/06/18 07:00 Intake & Output 12/05/18 12/06/18 12/06/18 18:59 06:59 18:59 Intake Total 972 900 260 Balance 972 900 260 Weight 67.7 kg Intake: Intake, IV Titration 750 900 Amount Aztreonam 1 gm In Sodium 50 Chloride 0.9% 50 ml @ 100 mls/hr IVPB Q12HR [facility] Rx #:[id number] Dextrose 5% in Water 1, 200 900 000 ml @ 100 mls/hr IV . [id number] [facility] with Sodium Bicarb (1 Meq/ml) 150 ml Rx#:[id number] Sodium Chloride 0.9% 1, 500 000 ml @ 100 mls/hr IV . Q10H [facility] Rx#:[id number] Oral 222 260 Other: Voiding Method Toilet Toilet Toilet # Voids 2 1 2 # Bowel Movements 1 - Exam No acute distress. S1-S2 heard Lungs clear Abdomen distended Edema - Labs CBC & Chem 7: 12/06/18 06:10 12/06/18 06:10 Labs: Abnormal Lab Results - Last 24 Hours (Table) 12/05/18 12/06/18 12/06/18 Range/Units 06:17 06:10 06:10 RBC 2.97 L (3.80-5.40) m/uL Hgb 7.4 L D (11.4-16.0) gm/dL Hct 24.3 L (34.0-46.0) % MCH 24.9 L (25.0-35.0) pg MCHC 30.5 L (31.0-37.0) g/dL RDW 18.1 H (11.5-15.5) % Lymphocytes # 0.8 L (1.0-4.8) k/uL Chloride 113 H (98-107) mmol/L Carbon Dioxide 16 L (22-30) mmol/L BUN 65 H (7-17) mg/dL Creatinine 2.81 H (0.52-1.04) mg/dL Glucose 122 H (74-99) mg/dL Calcium 7.3 L (8.4-10.2) mg/dL Iron 9 L (50-170) ug/dL Iron Saturation 3.75 L (12.00-45.00) AST 12 L (14-36) U/L Total Protein 5.2 L (6.3-8.2) g/dL Albumin 2.1 L (3.5-5.0) g/dL Microbiology - Last 24 Hours (Table) 12/03/18 18:52 Urine Culture - Final Urine,Voided Morganella morganii Assessment and Plan Assessment: #1 acute kidney injury suspect to volume depletion. Rule out obstructive uropathy with clogging up of bilateral ureteral stents. #2 chronic kidney disease stage III with a baseline creatinine of 1.4-1.7 MG per DL. #3 metabolic acidosis secondary to acute kidney injury #4 complicated UTI #5 hypotension Plan: #1 continue with IV fluids, with bicarb drip. Antibiotics as per infectious disease. #2 monitor renal function closely if it's persistently high may need urology evaluation for stent exchange. #3 avoid nephrotoxic agents and hypotensive episodes.
--- NOTE | 2018-12-06 14:23 | P.PN ---
Subjective Progress Note Date: 12/06/18 CHIEF COMPLAINT: Ileus HISTORY OF PRESENT ILLNESS: The patient is a 68-year-old female who comes in with UTI and ileus. She is reports moderate pressure along her suprapubic area at the her bladder. She is tolerating sandwich and crackers. ROS: No reports of nausea and vomiting. No fevers or chills. No productive sputum PHYSICAL EXAM: VITAL SIGNS: Reviewed CONSTITUTIONAL: Well developed and in no acute distress. EYES: Conjuctivae without sclera icterus. Extraocular movements grossly intact. HEAD, EARS, NOSE, THROAT: Moist buccal mucosa. Head is atraumatic, normocephalic. Hears conversational speech. No nasal drainage. NECK: Supple. No thyroidomegaly. RESPIRATORY: Non-labored respirations and equal bilateral excursions. CARDIOVASCULAR: Palpable 2+ radial pulses. ABDOMEN: Soft. No peritonitis. Tender along supra-pubic area. MUSCULOSKELETAL: No gross deformity of the lower extremities noted. No clubbing. No cyanosis. SKIN: Good skin turgor. Well perfused. NEUROLOGIC: Cranial nerves I through XII grossly intact. No focal or lateralizing signs. PSYCH: Appropriate affect. Alert and oriented to person, place and time. CLINCAL LABS: White blood cell count normal. UA turbid with WBC, bacteria ASSESSMENT: 1. Ileus 2. UTI PLAN: 1. Recommend bladder ultrasound for urinary retention 2. Recommend placement of staton for urinary retention Objective - Vital Signs Vital signs: Vital Signs Temp 98.2 F 12/06/18 07:00 Pulse 86 12/06/18 08:00 Resp 16 12/06/18 08:00 BP 104/58 12/06/18 07:00 Pulse Ox 97 12/06/18 07:00 Intake & Output 12/05/18 12/06/18 12/06/18 18:59 06:59 18:59 Intake Total 972 900 260 Balance 972 900 260 Weight 67.7 kg Intake: Intake, IV Titration 750 900 Amount Aztreonam 1 gm In Sodium 50 Chloride 0.9% 50 ml @ 100 mls/hr IVPB Q12HR [facility] Rx #:[id number] Dextrose 5% in Water 1, 200 900 000 ml @ 100 mls/hr IV . [id number] [facility] with Sodium Bicarb (1 Meq/ml) 150 ml Rx#:[id number] Sodium Chloride 0.9% 1, 500 000 ml @ 100 mls/hr IV . Q10H [facility] Rx#:[id number] Oral 222 260 Other: Voiding Method Toilet Toilet Toilet # Voids 2 1 2 # Bowel Movements 1 - Labs CBC & Chem 7: 12/06/18 06:10 12/06/18 06:10 Labs: Abnormal Lab Results - Last 24 Hours (Table) 12/05/18 12/06/18 12/06/18 Range/Units 06:17 06:10 06:10 RBC 2.97 L (3.80-5.40) m/uL Hgb 7.4 L D (11.4-16.0) gm/dL Hct 24.3 L (34.0-46.0) % MCH 24.9 L (25.0-35.0) pg MCHC 30.5 L (31.0-37.0) g/dL RDW 18.1 H (11.5-15.5) % Lymphocytes # 0.8 L (1.0-4.8) k/uL Chloride 113 H (98-107) mmol/L Carbon Dioxide 16 L (22-30) mmol/L BUN 65 H (7-17) mg/dL Creatinine 2.81 H (0.52-1.04) mg/dL Glucose 122 H (74-99) mg/dL Calcium 7.3 L (8.4-10.2) mg/dL Iron 9 L (50-170) ug/dL Iron Saturation 3.75 L (12.00-45.00) AST 12 L (14-36) U/L Total Protein 5.2 L (6.3-8.2) g/dL Albumin 2.1 L (3.5-5.0) g/dL Microbiology - Last 24 Hours (Table) 12/03/18 18:52 Urine Culture - Final Urine,Voided Morganella morganii Assessment and Plan (1) Ileus Current Visit: Yes Status: Acute Code(s): K56.7 - ILEUS, UNSPECIFIED SNOMED Code(s): 990347760 (2) REBECCA (acute kidney injury) Current Visit: Yes Status: Acute Code(s): N17.9 - ACUTE KIDNEY FAILURE, UNSPECIFIED SNOMED Code(s): 25255042 (3) Dehydration Current Visit: Yes Status: Acute Code(s): E86.0 - DEHYDRATION SNOMED Code(s): 20630247 (4) Abdominal pain Current Visit: No Status: Acute Priority: High Code(s): R10.9 - UNSPECIFIED ABDOMINAL PAIN SNOMED Code(s): 01189676 (5) Anemia in chronic kidney disease Current Visit: No Status: Chronic Priority: Medium Code(s): N18.9 - CHRONIC KIDNEY DISEASE, UNSPECIFIED; D63.1 - ANEMIA IN CHRONIC KIDNEY DISEASE SNOMED Code(s): 028473587
--- NOTE | 2018-12-06 15:40 | PN ---
PROGRESS NOTE DATE OF SERVICE: 12/06/2018 REASON FOR FOLLOWUP: Complicated UTI with multi-drug allergies. INTERVAL HISTORY: The patient is currently afebrile. The patient is still complaining of lower abdominal pressure and pain. Denies having any chest pain, shortness of breath or cough. No nausea, vomiting or any diarrhea. PHYSICAL EXAMINATION: Blood pressure is 104/58 with a pulse of 86, temperature 98.2. She is 97% on room air. General description is an elderly female lying in bed in no distress. RESPIRATORY SYSTEM: Unlabored breathing. Clear to auscultation anteriorly. HEART: S1, S2. Regular rate and rhythm. ABDOMEN: Soft. No tenderness. LABS: Hemoglobin 7.4, white count 5.1. Urine with morganella that is sensitive to Azactam, which the patient is currently on. DIAGNOSTIC IMPRESSION AND PLAN: Patient with a morganella urinary tract infection, complicated. The patient does have a history of bilateral ureteral stones and hydronephrosis. The patient is currently covered with Azactam; to continue while monitoring her clinical course closely. Continue with supportive care. MMODL / IJN: [id number] /
--- NOTE | 2018-12-06 17:14 | US ---
EXAMINATION TYPE: US kidneys/renal and bladder DATE OF EXAM: 12/06/2018 COMPARISON: CT & US 2019 CLINICAL HISTORY: renal failure, bladder pain. Renal failure, patient has bilateral ureteral stents, history of hydronephrosis, exam done portable. EXAM MEASUREMENTS: Right Kidney: 10.4 x 5.6 x 5.9 cm Left Kidney: 10.2 x 6.0 x 5.7 cm Right Kidney: hydronephrosis, stent seen in renal pelvis Left Kidney: hydronephrosis, stent seen in renal pelvis Bladder: not fully distended Ascites seen RUQ and midline pelvis IMPRESSION: 1. Bilateral hydronephrosis. Bilateral stents are evident. 2. Ascites the right upper quadrant.
--- NOTE | 2018-12-07 00:50 | PN ---
PROGRESS NOTE SUBJECTIVE: 68-year-old white female with SVT with drug-resistant UTI on IV infusion. Cardiovascular S1, S2. Sinus rhythm. Lungs clear. GI soft. Hematology: Negative Homans. ASSESSMENT: 1. Drug-resistant urinary tract infection. 2. Atypical chest pain. 3. Supraventricular tachycardia. Continue current treatment. Follow up in the next 24 to 48 hours. MMODL / IJN: [id number] /
[2018-12-07 00:58] LABS: Calcium 6.9 mg/dL (8.4-10.2); Potassium 3.5 mmol/L (3.5-5.1)
[2018-12-07] MEDS: PANTOPRAZOLE 40 MG TABLET PO SCH (06:33)
[2018-12-07] MEDS: LEVOTHYROXINE 50 MCG TAB PO SCH (06:33)
[2018-12-07] MEDS: MORPHINE SULFATE 4 MG/ML SYRINGE IV PRN ×3 (06:34→21:52)
[2018-12-07] MEDS: FLUCONAZOLE 100 MG TAB PO SCH (09:00)
[2018-12-07] MEDS: ESCITALOPRAM 20 MG TAB PO SCH (09:00)
[2018-12-07] MEDS: ASPIRIN 325 MG TAB PO SCH (09:00)
[2018-12-07] MEDS: AZTREONAM 1 GM in SODIUM CHLORIDE 0.9% 50 ML IVPB SCH ×2 (09:01→21:51)
[2018-12-07] MEDS: DEXTROSE 5% IN WATER 1,000 ML with SODIUM BICARB (1 MEQ/ML) 150 ML IV SCH (09:04)
--- NOTE | 2018-12-07 11:12 | P.PN ---
Subjective Progress Note Date: 12/07/18 Seen and examined for the follow-up of acute kidney injury. Creatinine slowly rising. Still has abdominal pain. No nausea vomiting diarrhea. 300 ML of documented urine output in the last 24 hours. Objective - Vital Signs Vital signs: Vital Signs Temp 97.8 F 12/07/18 07:00 Pulse 101 H 12/07/18 07:00 Resp 16 12/07/18 07:00 BP 90/50 12/07/18 07:00 Pulse Ox 94 L 12/07/18 07:00 Intake & Output 12/06/18 12/07/18 12/07/18 18:59 06:59 18:59 Intake Total 542 Output Total 300 Balance 542 -300 Intake: IV 60 Invasive Line 1 60 Oral 482 Output: Urine 300 Other: Voiding Method Toilet Toilet Toilet # Voids 1 1 - Exam No acute distress. S1-S2 heard Lungs clear Abdomen distended Edema - Labs CBC & Chem 7: 12/06/18 06:10 12/07/18 00:17 Labs: Abnormal Lab Results - Last 24 Hours (Table) 12/07/18 Range/Units 00:17 BUN 67 H (7-17) mg/dL Creatinine 2.89 H (0.52-1.04) mg/dL Glucose 150 H (74-99) mg/dL Calcium 6.9 L (8.4-10.2) mg/dL Assessment and Plan Assessment: #1 acute kidney injury suspect to volume depletion. Rule out obstructive uropathy with clogging up of bilateral ureteral stents. #2 chronic kidney disease stage III with a baseline creatinine of 1.4-1.7 MG per DL. #3 metabolic acidosis secondary to acute kidney injury #4 complicated UTI #5 hypotension Plan: #1 continue with IV fluids, change bicarbonate to normal saline. Creatinine stable #2 antibiotics per infectious disease. #3 urology evaluation #4 avoid nephrotoxic agents and hypotensive episodes.
[2018-12-07] MEDS: SODIUM CHLORIDE 0.9% 1,000 ML IV SCH (12:39)
--- NOTE | 2018-12-07 15:58 | P.PN ---
Subjective Progress Note Date: 12/07/18 CHIEF COMPLAINT: Ileus HISTORY OF PRESENT ILLNESS: The patient is a 68-year-old female who comes in with UTI and ileus. Compared to yesterday, she still complains of suprapubic pain. I personally ordered an ultrasound of her bladder and kidneys demonstrating hydronephrosis. Otherwise she is tolerating diet at least full liquid diet. King catheter has been placed per my request. ROS: No reports of nausea and vomiting. No fevers or chills. No productive sputum PHYSICAL EXAM: VITAL SIGNS: Reviewed CONSTITUTIONAL: Well developed and in no acute distress. EYES: Conjuctivae without sclera icterus. Extraocular movements grossly intact. HEAD, EARS, NOSE, THROAT: Moist buccal mucosa. Head is atraumatic, normocephalic. Hears conversational speech. No nasal drainage. NECK: Supple. No thyroidomegaly. RESPIRATORY: Non-labored respirations and equal bilateral excursions. CARDIOVASCULAR: Palpable 2+ radial pulses. ABDOMEN: Soft. No peritonitis. Tender along supra-pubic area. MUSCULOSKELETAL: No gross deformity of the lower extremities noted. No clubbing. No cyanosis. SKIN: Good skin turgor. Well perfused. NEUROLOGIC: Cranial nerves I through XII grossly intact. No focal or lateralizing signs. PSYCH: Appropriate affect. Alert and oriented to person, place and time. : Urine clear and yellow. RADIOLOGY: Ultrasound of bladder and kidney report reviewed consistent with bilateral hydronephrosis with stent placement. Mild abdominal ascites confirmed. ASSESSMENT: 1. Ileus 2. UTI 3. Bilateral hydronephrosis PLAN: 1. At this time, urology consultation has been placed. 2. No acute general surgical intervention needed. 3. At this time, we'll follow up as needed. Please reconsult if needed. Objective - Vital Signs Vital signs: Vital Signs Temp 99 F 12/07/18 15:34 Pulse 94 12/07/18 15:34 Resp 16 12/07/18 15:34 BP 94/47 12/07/18 15:34 Pulse Ox 95 12/07/18 15:34 Intake & Output 12/06/18 12/07/18 12/07/18 18:59 06:59 18:59 Intake Total 542 596 Output Total 300 Balance 542 -300 596 Intake: IV 60 Invasive Line 1 60 Oral 482 596 Output: Urine 300 Other: Voiding Method Toilet Toilet Toilet # Voids 1 1 - Labs CBC & Chem 7: 12/06/18 06:10 12/07/18 00:17 Labs: Abnormal Lab Results - Last 24 Hours (Table) 12/07/18 Range/Units 00:17 BUN 67 H (7-17) mg/dL Creatinine 2.89 H (0.52-1.04) mg/dL Glucose 150 H (74-99) mg/dL Calcium 6.9 L (8.4-10.2) mg/dL Assessment and Plan (1) Ileus Current Visit: Yes Status: Acute Code(s): K56.7 - ILEUS, UNSPECIFIED SNOMED Code(s): 144148808 (2) REBECCA (acute kidney injury) Current Visit: Yes Status: Acute Code(s): N17.9 - ACUTE KIDNEY FAILURE, UNSPECIFIED SNOMED Code(s): 51219923 (3) Dehydration Current Visit: Yes Status: Acute Code(s): E86.0 - DEHYDRATION SNOMED Code(s): 08179099 (4) Abdominal pain Current Visit: No Status: Acute Priority: High Code(s): R10.9 - UNSPECIFIED ABDOMINAL PAIN SNOMED Code(s): 02563597 (5) Anemia in chronic kidney disease Current Visit: No Status: Chronic Priority: Medium Code(s): N18.9 - CHRONIC KIDNEY DISEASE, UNSPECIFIED; D63.1 - ANEMIA IN CHRONIC KIDNEY DISEASE SNOMED Code(s): 152699304 (6) Hydronephrosis due to obstruction of ureter Current Visit: Yes Status: Acute Code(s): N13.2 - HYDRONEPHROSIS WITH RENAL AND URETERAL CALCULOUS OBSTRUCTION SNOMED Code(s): 129802753 (7) Hydronephrosis due to obstruction of bladder Current Visit: Yes Status: Acute Code(s): N13.30 - UNSPECIFIED HYDRONEPHROSIS; N32.0 - BLADDER-NECK OBSTRUCTION SNOMED Code(s): 939735700
--- NOTE | 2018-12-07 17:52 | P.GSCN ---
History of Present Illness Consult date: 12/07/18 Reason for Consult: Bilateral hydronephrosis History of present illness: Ms. Fowler is a 68-year-old female with a past medical history significant for recurrent urinary tract infection. She was admitted for UTI, on presentation she was complaining of abdominal pain, dysuria and N/V. Of note she has hx o bilateral ureteral stents placed by Dr. Contreras, but she is unsure why they were placed and when they were changed last. On presentation she underwent a CT chest abdominal and pelvis which showed bilateral hydronephrosis, atrophic left kidney and bilateral ureteral stents. She had CT from 06/2018 which showed hydronephrosis, and comparison of the CTs did not show evidence of hydronephrosis progression. On evaluation today she still complains of abdominal pain and nausea. Review of Systems - Constitutional Denies chills, Denies fever - Cardiovascular Denies chest pain, Denies dyspnea on exertion - Respiratory Denies cough, Denies dyspnea - Gastrointestinal Reports abdominal pain, Reports nausea, Reports vomiting - Genitourinary Genitourinary: Reports dysuria, Reports flank pain - Neurological Reports weakness, Denies tremors Past Medical History Past Medical History: Blood Disorder, Cancer, Deep Vein Thrombosis (DVT), GI Bleed, Liver Disease, Respiratory Disorder Additional Past Medical History / Comment(s): admit 07/27 for upper GI bleed. 09-10-14 admitted to [facility] with c/o blood in urine and rectal bleeding, DX GI BLEED AND UTI. other hx: Breast Ca x2; Skin Ca squamous and melanoma; uterine ca, lung cancer LOWER LEFT LOBE 70%, c-diff- 08-13- snd feb 2017, on xarelto for dvt and portal vein thrombosis. 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 Wound to BACK r/t lung CA, healed 6 months ago History of Any Multi-Drug Resistant Organisms: C-DIFF, MRSA Year Discovered:: 09/17/17 MDRO Source:: MRSA URINE Past Surgical History: Adenoidectomy, Appendectomy, Breast Surgery, Cholecystectomy, Hysterectomy, Orthopedic Surgery, Tonsillectomy Additional Past Surgical History / Comment(s): Mastectomy bilateral; Left lower lobectomy 70%; exploratory laparotomy, LASER SX AT [facility] FOR MELANOMA- CURRENTLY HAS 100 SPOTS THAT THEY ARE WATCHING REMMOVED 4 SO FAR.lasik eye sx, past "abcess on back(ecoli) pt stated they had to open a channel,removed 2 ribs and some muscle and it was open to drain to 18 months". surgical repair to Right wrist, right femur, and right hip in 2018 Past Anesthesia/Blood Transfusion Reactions: No Reported Reaction Additional Past Anesthesia/Blood Transfusion Reaction / Comm: PAST BLOOD TRANSFUSIONS- NO COMPLICATIONS Past Psychological History: Depression Additional Psychological History / Comment(s): LOW DOSE LEXAPRO, CURRENTLY NO DEPRESSION, PT normally lives at home with her zeeshan, however currently patient resides at [facility] due to right arm and hip fractures . pt started she had just recently started working w/pt getting up w/walker and assistance and transfer w/assistance to w/c Smoking Status: Former smoker Past Alcohol Use History: None Reported Additional Past Alcohol Use History / Comment(s): STARTED SMOKING AT AGE 13, SMOKED 1 PPD SMOKED FOR 3 YEARS THEN CUT DOWN TO ONLY SMOKING WHEN OUT WITH FRIENDS.QUIT 1978. Past Drug Use History: None Reported - Past Family History Father Additional Family Medical History / Comment(s): FROM COMPLICATIONS OF SCHRAPNEL IN BODY Mother Additional Family Medical History / Comment(s): STOMACH PROBLEMS, EMPHYSEMA Medications and Allergies Home Medications Medication Instructions Recorded Confirmed Type Levothyroxine Sodium [Synthroid] 50 mcg PO DAILY@0600 07/04/17 12/03/18 History Escitalopram Oxalate [Lexapro] 20 mg PO DAILY 07/06/17 12/03/18 History Furosemide [Lasix] 20 mg PO DAILY 12/03/18 12/03/18 History Allergies Allergy/AdvReac Type Severity Reaction Status Date / Time VANESSA Inhibitors Allergy Unknown Verified 12/03/18 16:53 baclofen Allergy Confusion Verified 12/03/18 16:53 cefepime HCl [From Maxipime] Allergy Rash/Hives Verified 12/03/18 16:53 cephalexin Allergy Rash/Hives Verified 12/03/18 16:53 ciprofloxacin Allergy Rash/Hives Verified 12/03/18 16:53 clindamycin Allergy Nausea & Verified 12/03/18 16:53 Vomiting erythromycin base Allergy Rash/Hives Verified 12/03/18 16:53 heparin Allergy Unknown Verified 09/25/19 16:53 lisinopril [From Zestril] Allergy Unknown Verified 12/03/18 16:53 lorazepam [From Ativan] Allergy Confusion Verified 12/03/18 16:53 metronidazole [From Flagyl] Allergy Nausea & Verified 12/03/18 16:53 Vomiting penicillin G Allergy Rash/Hives Verified 12/03/18 16:53 shellfish derived [Shellfish] Allergy Swelling Verified 12/03/18 16:53 Sulfa (Sulfonamide Allergy Swelling Verified 12/03/18 16:53 Antibiotics) steroids Allergy Unknown Uncoded 12/03/18 15:07 Surgical - Exam Vital Signs Temp Pulse Resp BP Pulse Ox 97.9 F 179 H 16 63/47 100 12/03/18 15:00 12/03/18 15:00 12/03/18 15:00 12/03/18 15:00 12/03/18 15:00 - General no distress, no pain - Respiratory normal expansion, normal respiratory effort - Abdomen Abdomen: soft, tender (diffuse), no rigid, no rebound, no distended - Neurologic no confused, no memory loss - Psychiatric oriented to time, oriented to person, oriented to place, speech is normal Results - Labs 12/06/18 06:10 12/07/18 00:17 Abnormal Lab Results - Last 24 Hours (Table) 12/07/18 Range/Units 00:17 BUN 67 H (7-17) mg/dL Creatinine 2.89 H (0.52-1.04) mg/dL Glucose 150 H (74-99) mg/dL Calcium 6.9 L (8.4-10.2) mg/dL Diabetes panel 12/07/18 Range/Units 00:17 Sodium 137 (137-145) mmol/L Potassium 3.5 (3.5-5.1) mmol/L Chloride 105 (98-107) mmol/L Carbon Dioxide 23 (22-30) mmol/L BUN 67 H (7-17) mg/dL Creatinine 2.89 H (0.52-1.04) mg/dL Glucose 150 H (74-99) mg/dL Calcium 6.9 L (8.4-10.2) mg/dL Calcium panel 12/07/18 Range/Units 00:17 Calcium 6.9 L (8.4-10.2) mg/dL Pituitary panel 12/07/18 Range/Units 00:17 Sodium 137 (137-145) mmol/L Potassium 3.5 (3.5-5.1) mmol/L Chloride 105 (98-107) mmol/L Carbon Dioxide 23 (22-30) mmol/L BUN 67 H (7-17) mg/dL Creatinine 2.89 H (0.52-1.04) mg/dL Glucose 150 H (74-99) mg/dL Calcium 6.9 L (8.4-10.2) mg/dL Adrenal panel 12/07/18 Range/Units 00:17 Sodium 137 (137-145) mmol/L Potassium 3.5 (3.5-5.1) mmol/L Chloride 105 (98-107) mmol/L Carbon Dioxide 23 (22-30) mmol/L BUN 67 H (7-17) mg/dL Creatinine 2.89 H (0.52-1.04) mg/dL Glucose 150 H (74-99) mg/dL Calcium 6.9 L (8.4-10.2) mg/dL - Imaging CT scan - abdomen: other (bilateral stents in place, no evidence of significant calcification, bilateral hydro, stable compared to CT from 06/2018. atrophic left kidney) Assessment and Plan Assessment: 68 yo female admitted with UTI, hx of recurrent UTI. Has hx of bilateral ureteral stent placed at [facility]. unkown why stent were placed and when stent were changed last Plan: -Continue Abx treatment -[place] is stable compared to CT from 06/2018, evaluate and treat other causes of REBECCA. stents obstruction could be contributing to ERBECCA given that it's unknown when stent were changed last -Will obtain records from [facility] to assess when the stent were changed last. If stent were changed > 3 months ago, then will exchange stents. Patient will need to have UTI treated prior to any stent exchange
--- NOTE | 2018-12-07 18:05 | PN ---
PROGRESS NOTE 68-year-old white female with SVT, which she has had no further recurrences. She is being treated for drug-resistant UTI. At this time, she feels she is getting a little bit better. Seen by Dr. New Epps today. Her creatinine is slowly rising due to acute kidney injury. Temperature 97.8, pulse is low 100s, respiratory rate 16 to 18, blood pressure 90 over 50s O2 94%. Hemoglobin 7.4, BUN 67, creatinine 2.89. Lungs are clear. Heart S1, S2. She is going to get a little bit of extra IV fluids due to a little bit of hypotension. Antibiotics per Infectious Disease. Urology evaluation. IMPRESSION AND PLAN: 1. Acute kidney injury secondary to volume depletion. 2. Possibly obstructive uropathy with stents. 3. Chronic kidney disease stage 3. 4. Metabolic acidosis. 5. Complicated urinary tract infection. 6. Please see further orders. MMODL / IJN: [id number] /
[2018-12-07] MEDS: ACETAMINOPHEN TAB 325 MG TAB PO PRN (23:19)
[2018-12-08] MEDS: SODIUM CHLORIDE 0.9% 1,000 ML IV SCH ×2 (03:24→21:23)
[2018-12-08] MEDS: MORPHINE SULFATE 4 MG/ML SYRINGE IV PRN ×4 (03:25→22:29)
[2018-12-08 06:23] LABS: Anisocytosis Slight; Basophils % (A) 1 %; Eosinophils # (A) 0.1 k/uL (0-0.7); Eosinophils % (A) 4 %; HCT 22.6 % (34.0-46.0); HGB 7.2 gm/dL (11.4-16.0); Hypochromasia Marked; Lymphocytes % (A) 26 %; MCH 25.3 pg (25.0-35.0); MCHC 31.9 g/dL (31.0-37.0); MCV 79.2 fL (80.0-100.0); Mean Platelet Volume 6.3; Microcytosis Slight; Monocytes # (A) 0.3 k/uL (0-1.0); Monocytes % (A) 8 %; Neutrophils # (A) 2.2 k/uL (1.3-7.7); Neutrophils % (A) 59 %; Platelet Count 217 k/uL (150-450); RBC 2.85 m/uL (3.80-5.40); RDW 17.2 % (11.5-15.5); WBC 3.7 k/uL (3.8-10.6)
[2018-12-08 06:32] LABS: Calcium 6.8 mg/dL (8.4-10.2); Total Bilirubin 0.4 mg/dL (0.2-1.3); Total Protein 5.1 g/dL (6.3-8.2)
[2018-12-08] MEDS: LEVOTHYROXINE 50 MCG TAB PO SCH (06:33)
[2018-12-08] MEDS: ACETAMINOPHEN TAB 325 MG TAB PO PRN ×2 (06:33→21:23)
[2018-12-08] MEDS: PANTOPRAZOLE 40 MG TABLET PO SCH (06:33)
--- NOTE | 2018-12-08 07:28 | PN ---
PROGRESS NOTE DATE OF SERVICE: 12/07/2018 REASON FOR FOLLOWUP: Complicated urinary tract infection. INTERVAL HISTORY: The patient is currently afebrile. Patient is breathing comfortably. Patient denies having any chest pain or any cough. Still complaining of lower abdominal discomfort and cloudy foul-smelling urine. Currently, the patient did have a King catheter. PHYSICAL EXAMINATION: Blood pressure is 94/47, pulse of 94, temperature of 99, she is 95% on room air. General description is an elderly female, lying in bed in no distress. RESPIRATORY SYSTEM: Unlabored breathing. Clear to auscultation. HEART: S1, S2. Regular rate and rhythm. ABDOMEN: Soft, no tenderness. EXTREMITIES: No edema of the feet. LABS: BUN of 67, creatinine is 2.89. DIAGNOSTIC IMPRESSION AND PLAN: Patient with completed Morganella urinary tract infection. This patient did have bilateral hydronephrosis and ureteral stent placement, despite being on antibiotic on the basis of the culture report. The patient did have significant amount of cloudy purulent urine. The patient may benefit from exchange of these stents in order to completely clear this infection. This will be discussed with Nephrology. Repeat urine culture will be ordered and continue supportive care. MMODL / IJN: [id number] /
[2018-12-08] MEDS: ESCITALOPRAM 20 MG TAB PO SCH (09:38)
[2018-12-08] MEDS: ASPIRIN 325 MG TAB PO SCH (09:38)
[2018-12-08] MEDS: FLUCONAZOLE 100 MG TAB PO SCH (09:38)
[2018-12-08] MEDS: AZTREONAM 1 GM in SODIUM CHLORIDE 0.9% 50 ML IVPB SCH ×2 (09:39→21:22)
--- NOTE | 2018-12-08 11:46 | CDI ---
Documentation Clarification Form Date: 12/08/2018 11:31:47 AM From: Alia GasparHouMARKELL, CCDS Admit Date: 12/03/2018 7:02:00 PM Patient Name: Treasure Fowler Visit Number: [id number] Discharge Date: ATTENTION: The Clinical Documentation Specialists (CDI) and [facility] Coding Staff appreciate your assistance in clarifying documentation. Please respond to the clarification below the line at the bottom and electronically sign. The CDI & [facility] Coding staff will review the response and follow-up if needed. Please note: Queries are made part of the Legal Health Record. If you have any questions, please contact the author of this message via ITS. Dr. Darcie Sawant: Acute Renal failure is documented in the ED note, the nephrology consult & per the subsequent nephrology progress notes documented as suspect to volume depletion. History Risk factors/Other underlying illness: CKD III-IV, Non-alcoholic cirrhosis of liver, portal vein thrombosis, recurrent UTIs with bilateral ureteral stents. Clinical Indicators: Admitted with abdominal pain, nausea, vomiting, SVT, hypotension & dehydration. Diagnosed with pyonephrosis, REBECCA, Moderate protein calorie malnutrition, dehydration & hypotension. BP: 63/47* Labs: Hgb 9.9* - 7.3*, BUN 67^, Cr 2.79^, GFR 17, Glucose 115, Alk Phos 206^, elevated troponins. Baseline Creatinine 1.4 - 1.7 secondary to obstructive uropathy with bilateral stents. Treatment: IV fl bolus, IV fl 100, IV Zofran, IV Ms, IV fluid rate 100, IV Aztreonam, IV Fluconazole/Na Cl, IV PPI, IV Dextrose/Water w/Nabicarb, In your professional opinion, can you please clarify if the condition can be further specified? Acute Renal Failure with Acute Tubular Necrosis Acute Renal Failure with Renal Cortical Necrosis Acute Renal Failure with other specified pathological cause, please specify Acute Renal Failure with other cause, please specify Unable to determine Other, please specify ___volume depletion versus obstructive uropathy.____ (Last Revision: December 2016) MTDD
--- NOTE | 2018-12-08 13:06 | P.PN ---
Subjective Patient is seen in follow-up for acute kidney injury on chronic kidney disease. Creatinine up to 3.05 today. Patient has history of obstructive uropathy with bilateral ureteral stents. Currently on antibiotics for UTI. Oral intake is fair. No vomiting or diarrhea. No chest pain or shortness of breath. Maintained on normal saline at 100 mL an hour. Vital signs are stable. General: The patient appeared well nourished and normally developed. HEENT: Head exam is unremarkable. Neck is without jugular venous distension. LUNGS: Lungs are clear to auscultation and percussion. Breath sounds decreased. HEART: Rate and Rhythm are regular. First and second heart sounds normal. No murmurs, rubs or gallops. ABDOMEN: Abdominal exam reveals normal bowel sounds. Non-tender and non- distended. No evidence of peritonitis. EXTREMITITES: 1+ edema. Objective - Vital Signs Vital signs: Vital Signs Temp 98.7 F 12/08/18 03:15 Pulse 97 12/08/18 03:15 Resp 16 12/08/18 08:00 BP 91/52 12/08/18 03:15 Pulse Ox 94 L 12/08/18 03:15 Intake & Output 12/07/18 12/08/18 12/08/18 18:59 06:59 18:59 Intake Total 818 236 Output Total 200 500 Balance 618 -500 236 Intake: Oral 818 236 Output: Urine 200 500 Other: Voiding Method Toilet Indwelling Catheter Indwelling Catheter - Labs CBC & Chem 7: 12/08/18 05:47 12/08/18 05:47 Labs: Abnormal Lab Results - Last 24 Hours (Table) 12/08/18 12/08/18 Range/Units 05:47 05:47 WBC 3.7 L (3.8-10.6) k/uL RBC 2.85 L (3.80-5.40) m/uL Hgb 7.2 L (11.4-16.0) gm/dL Hct 22.6 L (34.0-46.0) % MCV 79.2 L (80.0-100.0) fL RDW 17.2 H (11.5-15.5) % BUN 69 H (7-17) mg/dL Creatinine 3.05 H (0.52-1.04) mg/dL Calcium 6.8 L (8.4-10.2) mg/dL Alkaline Phosphatase 184 H (38-126) U/L Total Protein 5.1 L (6.3-8.2) g/dL Albumin 2.0 L (3.5-5.0) g/dL Assessment and Plan Plan: Assessment: 1. Acute kidney injury secondary to UTI and obstructive uropathy. Creatinine 3.05 today. 2. Hydronephrosis with bilateral ureteral stents. Patient is unsure when they were last exchanged. Urology following. 3. UTI. Urine culture positive for Morganella maintained on antibiotics. 4. Chronic kidney disease stage III. Baseline creatinine in the range of 1.4- 1.7 secondary to nephrosclerosis. 5. Metabolic acidosis secondary to acute kidney injury. Resolved. 6. Anemia of chronic kidney disease. Rule out iron deficiency. Plan: Decreased rate of normal saline to 50 mL an hour. Encouraged oral intake. Await urology input regarding exchanging the ureteral stents. Avoid nephrotoxins. Repeat electrolytes in the morning. Check iron studies. Add Aranesp.
[2018-12-08] MEDS: DARBEPOETIN ALFA 40 MCG/0.4 ML SYRINGE SQ SCH (18:14)
[2018-12-08 19:30] LABS: Ferritin 165.4 ng/mL (10.0-291.0)
[2018-12-08 21:25] LABS: Iron Saturation 3.63 (12.00-45.00)
[2018-12-08 22:47] LABS: Appearance,Urine Turbid (Clear); Bacteria,Urine Many /hpf; Bilirubin,Urine Negative (Negative); Blood,Urine Small (Negative); Color,Urine Red; Glucose,Urine (UA) Negative (Negative); Ketones,Urine Negative (Negative); Leukocyte Esterase,Urine Large (Negative); Nitrite,Urine Negative (Negative); PH, Urine 6.5 (5.0-8.0); Protein,Urine 3+ (Negative); RBC,Urine 53 /hpf (0-5); Urobilinogen,Urine <2.0 mg/dL (<2.0)
[2018-12-08 22:52] LABS: Specific Gravity,Urine 1.013 (1.001-1.035)
--- NOTE | 2018-12-08 22:55 | PN ---
PROGRESS NOTE DATE OF SERVICE: 12/08/2018 REASON FOR FOLLOWUP: Complicated urinary tract infection. INTERVAL HISTORY: The patient is currently afebrile. Still complaining of lower abdominal pain and cloudy urine. Some nausea but no vomiting. Denies any chest pain, shortness of breath or cough. PHYSICAL EXAMINATION: Blood pressure is 91/52 with a pulse of 97, temperature 98.7. She is 94% on room air. General description is an elderly female lying in bed in no distress. RESPIRATORY SYSTEM: Unlabored breathing. Clear to auscultation anteriorly. HEART: S1, S2. Regular rate and rhythm. ABDOMEN: Soft. No tenderness. LABS: Hemoglobin 7.2, white count 3.7, BUN of 69, creatinine 3.05. Repeat UA was ordered yesterday; despite the patient having a King catheter, it has not been sent unfortunately. DIAGNOSTIC IMPRESSION AND PLAN: Patient with complicated urinary tract infection in this patient who did have bilateral hydronephrosis and ureteral stents despite being on antibiotics for the organism that has been grown in the culture, likely indicating patient needs to have replacement of those stents. This will be discussed further with Urology. Continue the Azactam at this point and continue with supportive care. MMODL / IJN: [id number] /
--- NOTE | 2018-12-08 23:03 | PN ---
PROGRESS NOTE SUBJECTIVE: [id number] white female, UTI, ascites, dehydration, urosepsis and abdominal pain. She continues to have diffuse abdominal pain, worsening renal function. We are waiting for Urology to see about ureteral stenosis as a cause of worsening renal function. Remains on broad-spectrum aztreonam for IV antibiotics. CARDIOVASCULAR: S1, S2. LUNGS: Clear. GI: Soft. Tenderness to palpation, diffuse. HEMATOLOGY: Negative Homans. ASSESSMENT: 1. Urinary tract infection. 2. Urosepsis. 3. Urolithiasis. 4. Ascites. 5. Dehydration. 6. Sepsis. 7. Worsening renal function. Continue on IV aztreonam. Wait for Urology for possible ureteral stent replacement. MMODL / IJN: [id number] /
[2018-12-09] MEDS: LEVOTHYROXINE 50 MCG TAB PO SCH (05:57)
[2018-12-09 06:37] LABS: Calcium 7.4 mg/dL (8.4-10.2); Magnesium 1.2 mg/dL (1.6-2.3); Potassium 4.2 mmol/L (3.5-5.1)
[2018-12-09] MEDS: MORPHINE SULFATE 4 MG/ML SYRINGE IV PRN ×3 (08:35→21:58)
[2018-12-09] MEDS: ESCITALOPRAM 20 MG TAB PO SCH (08:36)
[2018-12-09] MEDS: PANTOPRAZOLE 40 MG TABLET PO SCH (08:36)
[2018-12-09] MEDS: ASPIRIN 325 MG TAB PO SCH (08:36)
[2018-12-09] MEDS: FLUCONAZOLE 100 MG TAB PO SCH (08:36)
[2018-12-09] MEDS: AZTREONAM 1 GM in SODIUM CHLORIDE 0.9% 50 ML IVPB SCH ×2 (08:36→20:30)
[2018-12-09] MEDS: SODIUM CHLORIDE 0.9% 1,000 ML IV SCH (19:11)
--- NOTE | 2018-12-09 19:47 | PN ---
PROGRESS NOTE Patient is seen for followup for acute kidney injury. She does have underlying obstructive uropathy with history of bilateral ureteral stents. Renal function has been worsening over the past 2 to 3 days. Patient was evaluated by Urology and currently awaiting decision regarding possible change of ureteral stents if it was done more than 3 months ago. At this time urine output is about 700 mL for the last 24 hours. Patient is not on any nephrotoxic medications. Her blood pressure is on the lower side. However, she is not on any antihypertensive medications. Patient remains on IV fluids at 50 mL/hour. On examination today, blood pressure was 109/63, heart rate 94 per minute. Patient is afebrile. EXAMINATION OF THE HEART: S1 and S2. EXAMINATION OF LUNGS: Decreased breath sounds at bases. ABDOMEN: Soft, non-tender. Examination of lower extremities shows edema 1+ bilaterally. HAMMERER TAB exam is grossly intact. Labs show sodium 139, potassium 4.2, BUN 69, serum creatinine 3.31. UA shows WBCs more than 182. Three plus protein is noted. Urine culture had grown Morganella morganii. ASSESSMENT: 1. Acute kidney injury on top of chronic kidney disease; possible obstructive uropathy. No nephrotoxic agents on board. Blood pressure is on the lower side. However, patient normally runs low. She is maintained on IV fluids, which I will continue. In view of worsening renal function, consider change of ureteral stents, as patient feels it was done more than 3 months ago. I will discuss with Urology. 2. Urinary tract infection, maintained on aztreonam. 3. Chronic kidney disease, stage IV, secondary to obstructive uropathy and nephrosclerosis. 4. Metabolic acidosis secondary to renal failure, possible obstructive uropathy, now resolved. PLAN: Discuss with Urology regarding possible change of stents, as patient feels it was done more than 3 months ago. MMODL / IJN: [id number] /
--- NOTE | 2018-12-09 21:57 | PN ---
PROGRESS NOTE 68-year-old white female status post SVT, acute renal insufficiency, UTI, urosepsis, urolithiasis with ureteral stenosis and stents that need to be replaced with worsening renal insufficiency. Cardiovascular S1-S2. Lungs clear. GI: Diffuse tenderness. Hematology negative Homans. ASSESSMENT: 1. Urinary tract infection. 2. Urosepsis. 3. Urolithiasis. 4. Supraventricular tachycardia. 5. Acute renal insufficiency. 6. Ascites. 7. Dehydration. Continue current treatments. IV Azactam. Possible ureteral stent removal and replacement. Await for urology. MMODL / IJN: [id number] /
--- NOTE | 2018-12-09 23:11 | PN ---
PROGRESS NOTE DATE OF SERVICE: 12/09/2018 REASON FOR FOLLOWUP: Complicated urinary tract infection with multiple antibiotic allergies. INTERVAL HISTORY: The patient is currently afebrile. The patient has been breathing comfortably. Patient denies having any chest pain or any cough. No nausea. No vomiting. Denies any worsening abdominal pain. No diarrhea. PHYSICAL EXAMINATION: Blood pressure 110/72 with a pulse of 102, temperature 98.8. She is 95% on room air. General description is an elderly female lying in bed in no distress. RESPIRATORY SYSTEM: Unlabored breathing. Clear to auscultation anteriorly. HEART: S1, S2. Regular rate and rhythm. ABDOMEN: Soft. No tenderness. LABS: Creatinine is up to 3.31. Repeat urine is still positive. DIAGNOSTIC IMPRESSION AND PLAN: Patient with complicated urinary tract infection with urine culture positive for enterobacter in this patient who does have MULTIPLE ANTIBIOTIC ALLERGIES. The patient is currently covered with Azactam. Still has significant positive UA with worsening of her kidney function. She will benefit from placement of a ureteral catheter. This will be discussed with Urology. Continue Azactam. Discontinue the Diflucan. MMODL / IJN: [id number] /
[2018-12-10] MEDS: SODIUM CHLORIDE 0.9% 1,000 ML IV SCH (02:32)
[2018-12-10] MEDS: LEVOTHYROXINE 50 MCG TAB PO SCH (05:06)
[2018-12-10] MEDS: MORPHINE SULFATE 4 MG/ML SYRINGE IV PRN ×5 (05:08→21:42)
[2018-12-10] MEDS: AZTREONAM 1 GM in SODIUM CHLORIDE 0.9% 50 ML IVPB SCH ×2 (08:35→21:41)
[2018-12-10] MEDS: PANTOPRAZOLE 40 MG TABLET PO SCH (08:35)
[2018-12-10] MEDS: ESCITALOPRAM 20 MG TAB PO SCH (08:35)
[2018-12-10] MEDS: ASPIRIN 325 MG TAB PO SCH (08:35)
[2018-12-10 10:00] LABS: Calcium 7.9 mg/dL (8.4-10.2); Potassium 4.3 mmol/L (3.5-5.1)
[2018-12-10] MEDS: SODIUM FERRIC GLUCONAT-SUCROSE 125 MG in SODIUM CHLORIDE 0.9% 100 ML IVPB SCH (15:39)
[2018-12-10] MEDS: MIDODRINE 5 MG TAB PO SCH (17:08)
--- NOTE | 2018-12-10 20:23 | PN ---
PROGRESS NOTE Patient is seen for followup for acute kidney injury. Patient has underlying chronic kidney disease. She has had some worsening of her renal function. She does have obstructive uropathy with bilateral ureteral stents, bilateral hydronephrosis. Patient believes her stents were placed more than 3 months ago. She is scheduled for exchange of the stents as outpatient, and we will try to contact Urology for possibly exchanging the stents while patient is in the hospital. Her creatinine has been slowly increasing. I do not see any other obvious reason for her acute kidney injury except for some degree of hypotension, although patient usually runs low blood pressure. She has been maintained on IV fluids. However, patient is complaining of lower extremity edema. On examination today, blood pressure was 110/68, heart rate 89 per minute. She is afebrile. EXAMINATION OF THE HEART: S1 and S2. EXAMINATION OF LUNGS: Bilateral breath sounds are heard. ABDOMEN: Soft, non-tender. Examination of lower extremities shows trace edema bilaterally. TRAMPOLINE TEAM COACH exam is grossly intact. Labs show sodium 141, potassium 4.3, BUN 67, serum creatinine 3.29. ASSESSMENT: 1. Chronic kidney disease with an element of acute kidney injury, acute tubular necrosis versus obstructive uropathy. We will try to contact Urology for possibly changing the ureteral stents, as patient feels it was done more than 3 months ago. I will also add midodrine to help with the hypotension. 2. Urinary tract infection; urine culture growing Morganella morganii; maintained on empiric antibiotics. 3. Severe anemia with no active bleeding noted. Significant iron deficiency noted. Patient is maintained on IV iron. PLAN: Add midodrine. Repeat labs in a.m. Contact Urology. MMEUGENIOL / YURIN: [id number] /
--- NOTE | 2018-12-10 22:50 | PN ---
PROGRESS NOTE Status post SVT, acute renal insufficiency, UTI, urosepsis, urolithiasis, ascites, dehydration, who is waiting for ureteral stent replacement by Urology. Continue on IV Azactam. CARDIOVASCULAR: S1-S2. LUNGS clear. GI increased diffuse tenderness. HEMATOLOGY: 2 to 3+ edema. PLAN: Continue with broad-spectrum IV Azactam. Wait for ureteral tube. Removal and replacement. MMODL / IJN: [id number] /
--- NOTE | 2018-12-10 23:51 | PN ---
PROGRESS NOTE DATE OF SERVICE: 12/10/2018 REASON FOR FOLLOWUP: Complicated urinary tract infection. INTERVAL HISTORY: The patient is currently afebrile. The patient has been breathing comfortably. Denies having any chest pain or cough. No worsening abdominal pain. Still has significantly cloudy urine output. No diarrhea. PHYSICAL EXAMINATION: Blood pressure 91/56, pulse of 89, temperature 98.1. She is 97% on 2 L nasal cannula. General description is an elderly female lying in bed in no distress. RESPIRATORY SYSTEM: Unlabored breathing. Clear to auscultation anteriorly. HEART: S1, S2. Regular rate and rhythm. ABDOMEN: Soft. No tenderness. LABS: BUN of 67, creatinine 3.29. DIAGNOSTIC IMPRESSION AND PLAN: Patient with a complicated urinary tract infection in this patient. Initial culture with morganella and repeat is now showing a group D enterococcus. Daptomycin will be added in view of her multiple antibiotic allergies and high risk of nephrotoxicity from the vancomycin with her current kidney function. Continue with supportive care. MMODL / IJN: [id number] /
[2018-12-11] MEDS: SODIUM CHLORIDE 0.9% 1,000 ML IV SCH ×2 (02:13→20:24)
[2018-12-11] MEDS: MORPHINE SULFATE 4 MG/ML SYRINGE IV PRN ×5 (05:06→22:47)
[2018-12-11] MEDS: LEVOTHYROXINE 50 MCG TAB PO SCH (05:07)
[2018-12-11] MEDS: ASPIRIN 325 MG TAB PO SCH (08:05)
[2018-12-11] MEDS: PANTOPRAZOLE 40 MG TABLET PO SCH (08:05)
[2018-12-11] MEDS: MIDODRINE 5 MG TAB PO SCH ×3 (08:05→17:05)
[2018-12-11] MEDS: ESCITALOPRAM 20 MG TAB PO SCH (08:05)
[2018-12-11] MEDS: AZTREONAM 1 GM in SODIUM CHLORIDE 0.9% 50 ML IVPB SCH ×2 (08:05→20:21)
[2018-12-11 08:26] LABS: Anisocytosis Slight; Basophils # (A) 0.1 k/uL (0-0.2); Basophils % (A) 1 %; Eosinophils # (A) 0.3 k/uL (0-0.7); Eosinophils % (A) 6 %; HCT 23.5 % (34.0-46.0); HGB 7.5 gm/dL (11.4-16.0); Hypochromasia Marked; Lymphocytes # (A) 1.2 k/uL (1.0-4.8); Lymphocytes % (A) 25 %; MCH 25.3 pg (25.0-35.0); MCHC 31.8 g/dL (31.0-37.0); MCV 79.3 fL (80.0-100.0); Mean Platelet Volume 6.6; Microcytosis Slight; Monocytes # (A) 0.6 k/uL (0-1.0); Monocytes % (A) 11 %; Neutrophils # (A) 2.5 k/uL (1.3-7.7); Neutrophils % (A) 52 %; Platelet Count 274 k/uL (150-450); RBC 2.96 m/uL (3.80-5.40); RDW 17.2 % (11.5-15.5); WBC 4.9 k/uL (3.8-10.6)
[2018-12-11 09:00] LABS: Poikilocytosis (M) Present
[2018-12-11] MEDS: SODIUM FERRIC GLUCONAT-SUCROSE 125 MG in SODIUM CHLORIDE 0.9% 100 ML IVPB SCH (09:02)
[2018-12-11 09:06] LABS: Albumin 2.2 g/dL (3.5-5.0); Calcium 7.9 mg/dL (8.4-10.2); Potassium 5.1 mmol/L (3.5-5.1); Total Bilirubin 0.4 mg/dL (0.2-1.3); Total Protein 5.6 g/dL (6.3-8.2)
--- NOTE | 2018-12-11 17:52 | PN ---
PROGRESS NOTE Patient is seen for followup for acute kidney injury. Her serum creatinine is staying at about 3.29-3.3 mg/dL. The patient is maintained on IV fluids. 24 hour urine output about 700-650 mL. There is concern for possible underlying obstructive uropathy in view of chronic obstructive uropathy and bilateral ureteral stents. We are awaiting urology input regarding need for exchange of stents. PHYSICAL EXAMINATION: This morning: Blood pressure was 93/58, heart rate of 90 per minute, patient is afebrile. Examination of the heart S1, S2. Examination of the lungs, bilateral breath sounds are heard. Abdomen is soft, nontender. Examination of lower extremities shows trace edema bilaterally. LABS: Hemoglobin 7.5, sodium 144, potassium 5.1, BUN 73, serum creatinine 3.28. ASSESSMENT: 1. Chronic kidney disease, obstructive uropathy, history of bilateral ureteral stents. 2. Acute kidney injury. Possibly worsening obstructive uropathy versus secondary to low blood pressure. Renal function is stable for the last 2 days. However, her creatinine is much higher than her baseline of about 2.3-2.4 mg/dL. Contact Urology for possible exchange of stents. 3. Anemia with severe iron deficiency noted, maintained on IV iron and Aranesp. 4. Gastroesophageal reflux disease. 5. Urinary tract infection. Urine culture growing Morganella morganii and Enterococcus faecalis, maintained on IV antibiotics including Dapto and aztreonam, being followed by Infectious Disease. PLAN: Continue IV fluids. We will try to contact Urology again. ANYA / YURIN: [id number] /
--- NOTE | 2018-12-11 19:48 | P.PN ---
Progress Note - Text Progress Note Date: 12/11/18 Ms. Fowler is a 68-year-old female with a past medical history significant for recurrent urinary tract infection. Chronic urinary retention, chronic hydronephrosis been managed by ureteral stents. Last stent exchange was in 06/[address] Contreras. Review of CT from current admission and 06/2018 shows stable hydro. There is no progression of hydronephrosis, worsening of obstruction is unlikely. Her urine culture December 08 showed morganella and enterococcus. She is currently on abx. Creat baseline is 2.2-2.4, it has stabilized to 3.3. Of note she is been having intermittent low BP -Patient will need her UTI adequately treated prior to stent exchange. We have scheduled her for bilateral ureteral stent exchange on 12/[address] Contreras, continue abx until her stent exchange -King can be removed prior to discharge, and she can resume CIC
--- NOTE | 2018-12-12 00:02 | PN ---
PROGRESS NOTE DATE OF SERVICE: 12/11/2018 REASON FOR FOLLOWUP: Complicated urinary tract infection. INTERVAL HISTORY: The patient is currently afebrile, has been breathing comfortably. The patient has been complaining of lower abdominal pain, though no worsening. No chest pain, shortness of breath or cough. No abdominal pain or diarrhea. PHYSICAL EXAMINATION: Blood pressure is 101/64 with a pulse of 83, temperature 98.7. She is 97% on room air. General description is an elderly female lying in bed in no distress. RESPIRATORY SYSTEM: Unlabored breathing. Clear to auscultation anteriorly. HEART: S1, S2. Regular rate and rhythm. ABDOMEN: Soft. No tenderness. LABS: Hemoglobin 7.5, white count 4.9, BUN of 73, creatinine 3.28. DIAGNOSTIC IMPRESSION AND PLAN: Patient with complicated urinary tract infection in this patient who did have bilateral ureteral stent and hydronephrosis. Patient will need exchange of this catheter while on antibiotic therapy. In view of her multiple antibiotic allergies, no oral option is available. She will get a midline for concentration of IV antibiotic until these stents are changed, as apparently currently scheduled for December 17. MMODL / IJN: [id number] /
[2018-12-12] MEDS: LEVOTHYROXINE 50 MCG TAB PO SCH (05:01)
--- NOTE | 2018-12-12 06:23 | PN ---
PROGRESS NOTE SUBJECTIVE: This is a 68-year-old white female with SVT, UTI with urosepsis, remains on IV aztreonam. She is going to have ureteral stents replaced next Saturday. We discussed with [place] about her going home in the meantime, but she states she has severe pain. She is worried about coming back to the hospital. She wants to stay until she gets her ureteral stents replaced. CARDIOVASCULAR: S1, S2. LUNGS: Clear. GI: Diffuse tenderness to palpation, diffuse. HEMATOLOGY: Negative Homans. ASSESSMENT: 1. Supraventricular tachycardia. 2. Acute renal insufficiency. 3. Ascites. 4. Dehydration. 5. Urinary tract infection. 6. Urosepsis. 7. . Continue current treatment. Follow up in next 24 to 48 hours. Remain on IV aztreonam. We will discharge home once cleared by [facility] Phys[facility] and Infectious Disease. She will have ureteral stent replaced next week. MMODL / IJN: [id number] /
[2018-12-12] MEDS: ESCITALOPRAM 20 MG TAB PO SCH (08:12)
[2018-12-12] MEDS: ASPIRIN 325 MG TAB PO SCH (08:12)
[2018-12-12] MEDS: PANTOPRAZOLE 40 MG TABLET PO SCH (08:12)
[2018-12-12] MEDS: AZTREONAM 1 GM in SODIUM CHLORIDE 0.9% 50 ML IVPB SCH (08:12)
[2018-12-12] MEDS: MIDODRINE 5 MG TAB PO SCH ×3 (08:12→17:58)
[2018-12-12] MEDS: SODIUM FERRIC GLUCONAT-SUCROSE 125 MG in SODIUM CHLORIDE 0.9% 100 ML IVPB SCH (08:31)
[2018-12-12] MEDS: MORPHINE SULFATE 4 MG/ML SYRINGE IV PRN ×4 (08:31→23:07)
[2018-12-12] MEDS ORDERED: ERTAPENEM 0.5 GM in SODIUM CHLORIDE 0.9% 50 ML IVPB STA (15:05)
--- NOTE | 2018-12-12 17:32 | PN ---
PROGRESS NOTE Patient is seen for followup for chronic kidney disease and acute kidney injury. She was admitted to the hospital with urinary tract infection, currently maintained on antibiotics. The plan from urology standpoint is to change the stents after the IV antibiotics. Her renal function is fairly stable over the last 2 to 3 days. However, her creatinine is much higher than her usual baseline of about 2.5 to 2.6 mg/dL. No significant complaints today. On examination, blood pressure was 102/67, heart rate 90 per minute. She is afebrile. EXAMINATION OF THE HEART: S1 and S2. EXAMINATION OF LUNGS: Bilateral breath sounds are heard. ABDOMEN: Soft, non-tender. Examination of the lower extremities shows trace edema bilaterally. CREDIT COLLECTIONS SPECIALIST exam is grossly intact. Labs show sodium of 144 from yesterday, potassium 5.1, BUN 73, serum creatinine 3.28. ASSESSMENT: 1. Acute kidney injury associated with underlying infection, possibly worsening obstructive uropathy. Patient will have the exchange of her bilateral stents over the next few days after she has finished her antibiotics. 2. Anemia with severe iron deficiency, maintained on IV iron and Aranesp. 3. Urinary tract infection. Urine culture growing Morganella morganii and Enterococcus faecalis. Maintained on daptomycin and aztreonam and being followed by Gastroenterology. 4. Chronic kidney disease secondary to obstructive uropathy with history of bilateral ureteral stents. Baseline creatinine about 2.5 to 2.6 mg/dL. PLAN: Continue antibiotics. Check labs in a.m. MMODL / IJN: [id number] /
[2018-12-12] MEDS: SODIUM CHLORIDE 0.9% 1,000 ML IV SCH (17:58)
--- NOTE | 2018-12-12 19:44 | PN ---
PROGRESS NOTE DATE OF SERVICE: 12/12/2018. REASON FOR FOLLOWUP: Complicated urinary tract infection. INTERVAL HISTORY: The patient is currently afebrile. The patient has been breathing comfortably. The patient denies having any chest pain or cough. No nausea or vomiting. No worsening abdominal pain. Urine is slightly clearing out. PHYSICAL EXAMINATION: Blood pressure 109/67, pulse 95, temperature 98.1. She is 98% on room air. General description is an elderly female up in the chair in no distress. RESPIRATORY SYSTEM: Unlabored breathing. Clear to auscultation anteriorly. HEART: S1, S2. Regular rate and rhythm. ABDOMEN: Soft. No tenderness. LABS: Hemoglobin 7.5, white count 4.9, BUN of 73, creatinine 3.28. DIAGNOSTIC IMPRESSION AND PLAN: Patient with complicated urinary tract infection. This patient did have bilateral renal stents. Urine with Enterococcus faecalis and morganella. Antibiotic was switched to Invanz with anticipation for discharge today. However, apparently discharge has been put on hold and the patient is scheduled for replacement of the stents on Saturday. She will be continued on Invanz and daptomycin until the procedure is completed. Questions and concerns were answered. MMODL / IJN: [id number] /
--- NOTE | 2018-12-12 20:34 | PN ---
PROGRESS NOTE This is a 68-year-old white female who is status post SVT. Remains on broad-spectrum IV aztreonam for the next 5 days until ureteral stents are replaced next week by Urology. Discussed the case with Dr. Epps. She is still complaining of severe weakness and fatigue and worsening renal insufficiency. CARDIOVASCULAR: S1, S2. LUNGS: Clear. INTEGUMENT: She looks weak and fatigued. GI: There is tenderness to palpation. No mass or organomegaly. HEMATOLOGY: Negative Homans. ASSESSMENT: 1. Supraventricular tachycardia. 2. Acute renal insufficiency. 3. Urinary tract infection. 4. Urosepsis. 5. . 6. Acute on chronic renal disease. 7. Dehydration. Continue current treatments. Include IV aztreonam. Ureteral stent replacement will be needed. Continue on IV antibiotics until that happens. MMODL / IJN: [id number] /
[2018-12-13] MEDS: MORPHINE SULFATE 4 MG/ML SYRINGE IV PRN ×4 (05:12→15:46)
[2018-12-13] MEDS: LEVOTHYROXINE 50 MCG TAB PO SCH (05:12)
[2018-12-13 07:48] LABS: Calcium 8.2 mg/dL (8.4-10.2); Potassium 4.8 mmol/L (3.5-5.1)
[2018-12-13] MEDS: ESCITALOPRAM 20 MG TAB PO SCH (08:42)
[2018-12-13] MEDS: ERTAPENEM 0.5 GM in SODIUM CHLORIDE 0.9% 50 ML IVPB SCH (08:42)
[2018-12-13] MEDS: PANTOPRAZOLE 40 MG TABLET PO SCH (08:42)
[2018-12-13] MEDS: ASPIRIN 325 MG TAB PO SCH (08:42)
[2018-12-13] MEDS: MIDODRINE 5 MG TAB PO SCH ×3 (08:43→16:58)
[2018-12-13] MEDS: SODIUM FERRIC GLUCONAT-SUCROSE 125 MG in SODIUM CHLORIDE 0.9% 100 ML IVPB SCH (09:52)
[2018-12-13] MEDS: ACETAMINOPHEN TAB 325 MG TAB PO PRN (13:00)
[2018-12-13] MEDS: SODIUM CHLORIDE 0.9% 1,000 ML IV SCH (13:49)
--- NOTE | 2018-12-13 14:45 | PN ---
PROGRESS NOTE Patient is seen for followup for acute kidney injury on top of chronic kidney disease. She is currently being treated with antibiotics for underlying urinary tract infection. Patient needs to have a bilateral ureteral stent exchange. However, this will be done sometime next week after patient has received antibiotics and treatment of UTI. Creatinine seems to have worsened again to 3.6 from 3.2 two days ago. Baseline creatinine is 1.7 to 2.3 as of August of 2018. The patient is maintained on IV fluids. She has been eating okay. She is also complaining of increased lower extremity edema. No complaints of chest pains or shortness of breath. PHYSICAL EXAMINATION: On examination this morning, blood pressure was 116/68, heart rate 98 per minute. She is afebrile. EXAMINATION OF THE HEART: S1, S2. EXAMINATION OF THE LUNGS: Bilateral breath sounds are heard. Abdomen is soft, nontender. Examination of lower extremities shows edema 1+ bilaterally. BUSINESS ADMINISTRATION PROGRAM CHAIR EXAM: Grossly intact. LABS: Labs show sodium of 144, potassium 4.8, CO2 is 18, BUN 74, creatinine 3.6. ASSESSMENT: 1. Acute kidney injury on top of chronic kidney disease, most likely obstructive uropathy. Awaiting stent exchange. 2. Urinary tract infection, being maintained on antibiotics. Urine culture grew Morganella morganii and Enterococcus faecalis. 3. Mild metabolic acidosis. I will add sodium bicarb. 4. Chronic hypotension, maintained on midodrine. 5. Anemia with severe iron deficiency, maintained on IV iron as well as Aranesp. PLAN: Add oral sodium bicarb. Discontinue IV fluids. MMODL / IJN: [id number] /
--- NOTE | 2018-12-13 17:11 | PN ---
PROGRESS NOTE SUBJECTIVE: This is a 68-year-old white female, UTI, urosepsis, , SVT, acute renal insufficiency, ascites, dehydration. Remains on IV antibiotics, aztreonam until ureteral stents replaced. CARDIOVASCULAR: S1. S2. LUNGS: Clear. GI: Soft. HEMATOLOGY: Negative Homans. ASSESSMENT: 1. Urinary tract infection. 2. Urosepsis. 3. . 4. Supraventricular tachycardia. 5. Acute renal insufficiency. 6. Ascites. 7. Dehydration. Continue current treatment for the next 24 to 48 hours for ureteral stent replacement. Continue on IV aztreonam for drug-resistant UTI. MMODL / IJN: [id number] /
[2018-12-14] MEDS: SODIUM BICARBONATE TAB 650 MG TAB PO SCH ×3 (00:01→21:56)
[2018-12-14] MEDS: ACETAMINOPHEN TAB 325 MG TAB PO PRN ×2 (00:01→09:54)
[2018-12-14] MEDS: LEVOTHYROXINE 50 MCG TAB PO SCH (06:29)
--- NOTE | 2018-12-14 09:39 | PN ---
PROGRESS NOTE 68-year-old white female who has got worsening renal function. Awaiting ureteral stent replacement. Remains on IV antibiotics per Dr. Epps. ( ) replaced. She has acute kidney injury on top of chronic disease and UTI, on antibiotics. Morganella on enterococcus. Found to have metabolic acidosis, chronic hypertension, on midodrine, anemia. Add sodium bicarbonate. Discontinue IV fluids. Await for ureteral stent replacement per Urology. CARDIOVASCULAR: S1, S2. Lungs are clear. Abdomen is firm and distended. Continue current treatment as mentioned above. MMODL / IJN: [id number] /
[2018-12-14] MEDS: ASPIRIN 325 MG TAB PO SCH (09:54)
[2018-12-14] MEDS: ESCITALOPRAM 20 MG TAB PO SCH (09:54)
[2018-12-14] MEDS: SODIUM FERRIC GLUCONAT-SUCROSE 125 MG in SODIUM CHLORIDE 0.9% 100 ML IVPB SCH (09:56)
[2018-12-14] MEDS: MIDODRINE 5 MG TAB PO SCH ×3 (09:56→17:28)
[2018-12-14] MEDS: PANTOPRAZOLE 40 MG TABLET PO SCH (09:56)
[2018-12-14] MEDS: ERTAPENEM 0.5 GM in SODIUM CHLORIDE 0.9% 50 ML IVPB SCH (11:09)
[2018-12-14] MEDS: MORPHINE SULFATE 4 MG/ML SYRINGE IV PRN ×2 (11:09→17:33)
--- NOTE | 2018-12-14 11:14 | US ---
EXAMINATION TYPE: US abdomen complete DATE OF EXAM: 12/14/2018 COMPARISON: Previous study dated 12/06/2018. CLINICAL HISTORY: bloating/renal insuff. Bloating, renal failure, UTI, bilateral renal stents EXAM MEASUREMENTS: Liver Length: 11.7 cm CBD: 0.8 cm Spleen: 9.0 cm Right Kidney: 10.6 x 6.2 x 6.3 cm Left Kidney: 9.4 x 4.7 x 4.8 cm Pancreas: Obscured by bowel gas Liver: Small in size, lobulated contour, small amount of ascites surrounding liver Gallbladder: Surgically absent Evidence for sonographic Blanco's sign: No CBD: wnl Spleen: wnl Right Kidney: [place] as seen on previous Left Kidney: [place] as see on previous, small in size when compared to right with cortical thinning Upper IVC: wnl Abd Aorta: Majority gassed out The gallbladder is obscured. The liver is normal in size without evidence of biliary dilatation. There is a small amount of ascite s surrounding the Gallbladder is been removed. The distal common hepatic duct measures 8 mm. There is no sonographic Mu rphy's sign. There is bilateral hydronephrosis similar to the previous study. Spleen is normal in size. Visualized portions of aorta and IVC are normal. IMPRESSION: 1. STABLE HYDRONEPHROSIS OF BOTH KIDNEYS. 2. SMALL LIVER WITH SURROUNDING ASCITES MAY REFLECT CIRRHOSIS.
--- NOTE | 2018-12-14 18:57 | PN ---
PROGRESS NOTE Patient is seen for followup for acute kidney injury on top of chronic kidney disease. Her creatinine has been slowly increasing. It was up to 3.6 yesterday. We are awaiting bilateral ureteral stent placement. The patient is maintained on antibiotics for UTI. Plan is to change the stents after the antibiotics. Urine output about 1.1 L over 24 hours. The patient has an indwelling King catheter. EXAMINATION: Today blood pressure 106/63, heart rate 97 per minute, she is afebrile. Examination of the heart S1, S2. Examination of the lungs, decreased breath sounds at bases. Abdomen is soft, nontender. Examination of lower extremities shows trace edema bilaterally. SALT REFINER exam grossly intact. LAB: Show hemoglobin 7.5 on December 11. Sodium 144, potassium 4.8, serum creatinine 3.6 yesterday. ASSESSMENT: 1. Acute kidney injury on top of chronic kidney disease secondary to most likely obstructive uropathy as well as possibly a component of hypotension hypoperfusion. However, blood pressure has been stable over the last few days and renal function has been worsening. IV fluids have been discontinued as patient has increased lower extremity edema. There are no nephrotoxic agents on board. 2. Chronic kidney disease, NKF stage IV. Baseline creatinine about 1.7-2.3 mg/dL as of August of 2018. 3. Mild metabolic acidosis. Maintained on oral sodium bicarb. 4. Anemia with severe iron deficiency maintained on IV iron and Aranesp. PLAN: DC IV iron. Continue Aranesp. Check labs in a.m. including CBC. Await bilateral ureteral stent exchange. MMODL / IJN: [id number] /
--- NOTE | 2018-12-14 21:04 | PN ---
PROGRESS NOTE 68-year-old white female with SVT, UTI, urosepsis, complaining of more abdominal distention today. We will order an abdominal ultrasound at this time. CARDIOVASCULAR: S1/S2. LUNG: Clear. GI: Increased bowel sounds x4. HEMATOLOGY: Negative Homans. ASSESSMENT: 1. Urinary tract infection. 2. Urosepsis. 3. Urolithiasis. 4. Supraventricular tachycardia. 5. Acute renal insufficiency. 6. Ascites. 7. Dehydration. Follow up in next 24-48 hours for possible discharge after ureteral stent placement is done. In the meantime, continue on IV antibiotics. An ultrasound of the abdomen will be done. MMODL / IJN: [id number] /
[2018-12-15] MEDS: ACETAMINOPHEN TAB 325 MG TAB PO PRN ×3 (03:26→18:09)
[2018-12-15] MEDS: LEVOTHYROXINE 50 MCG TAB PO SCH (06:01)
[2018-12-15 07:31] LABS: Albumin 2.2 g/dL (3.5-5.0); Calcium 8.3 mg/dL (8.4-10.2); Potassium 4.9 mmol/L (3.5-5.1); Total Bilirubin 0.3 mg/dL (0.2-1.3); Total Protein 5.6 g/dL (6.3-8.2)
[2018-12-15] MEDS: MORPHINE SULFATE 4 MG/ML SYRINGE IV PRN ×3 (07:37→20:15)
[2018-12-15] MEDS: ESCITALOPRAM 20 MG TAB PO SCH (07:38)
[2018-12-15] MEDS: PANTOPRAZOLE 40 MG TABLET PO SCH (07:38)
[2018-12-15] MEDS: ERTAPENEM 0.5 GM in SODIUM CHLORIDE 0.9% 50 ML IVPB SCH (07:38)
[2018-12-15] MEDS: MIDODRINE 5 MG TAB PO SCH ×3 (07:38→16:38)
[2018-12-15] MEDS: ASPIRIN 325 MG TAB PO SCH (07:38)
[2018-12-15] MEDS: SODIUM BICARBONATE TAB 650 MG TAB PO SCH ×2 (07:38→20:12)
[2018-12-15 07:42] LABS: Anisocytosis Slight; Basophils % (A) 1 %; Eosinophils # (A) 0.2 k/uL (0-0.7); Eosinophils % (A) 4 %; HCT 23.6 % (34.0-46.0); Hypochromasia Marked; Lymphocytes # (A) 1.1 k/uL (1.0-4.8); Lymphocytes % (A) 22 %; MCH 25.6 pg (25.0-35.0); MCHC 29.4 g/dL (31.0-37.0); Mean Platelet Volume 6.2; Monocytes # (A) 0.3 k/uL (0-1.0); Monocytes % (A) 6 %; Neutrophils # (A) 3.1 k/uL (1.3-7.7); Neutrophils % (A) 65 %; Platelet Count 364 k/uL (150-450); RBC 2.72 m/uL (3.80-5.40); RDW 17.8 % (11.5-15.5); WBC 4.9 k/uL (3.8-10.6)
[2018-12-15] MEDS: DARBEPOETIN ALFA 40 MCG/0.4 ML SYRINGE SQ SCH (12:09)
[2018-12-15] MEDS ORDERED: FUROSEMIDE 10 MG/ML 4 ML VIAL IV STA (12:40)
--- NOTE | 2018-12-15 13:04 | CDI ---
Documentation Clarification Form Date: 12/15/2018 12:54:23 PM From: Alia GasparHouMARKELL fong, CCDS Admit Date: 12/03/2018 7:02:00 PM Patient Name: Treasure Fowler Visit Number: [id number] Discharge Date: ATTENTION: The Clinical Documentation Specialists (CDI) and [facility] Coding Staff appreciate your assistance in clarifying documentation. Please respond to the clarification below the line at the bottom and electronically sign. The CDI & [facility] Coding staff will review the response and follow-up if needed. Please note: Queries are made part of the Legal Health Record. If you have any questions, please contact the author of this message via ITS. Dr. Miles Collado or Dr. Nichols: The diagnosis Sepsis was documented in the record, in the 12/08 progress note but is not consistently noted in subsequent documentation. The subsequent documentation states "urosepsis". History/Risk Factors: Ureteral stenosis, Liver disease, Brease CA, Skin CA: melanoma, Uterine CA, Lung CA, C Diff, Portal vein thrombosis, colitis & MRSA in urine. Clinical Indicators: Presented with UTI & abdominal pain. Diagnosed with UTI, REBECCA & SVT in ED. Admission VS: T 97.9, P 179^, R 16, BP 63/57*, PO 100 RA LAB: WBC 10.2, Hgb 9.9*, Neut 8.2^, BUN 67^, Cr 2.79^, Alk Phos 206^, Trops: <0.012, 0.054^^, 0.038^^; Lactic Acid 1.0. Treatment: IV fluid bolus, IV fluid rate 100, IV Zofran, IV Ms, IV Aztreonam, IV Fluconazole, IV Ertapenem, IV Lasix Consults: Cardiology, Infectious Disease, Nephrology, Surgery, Urology Please clarify if the above diagnosis of Sepsis is: Ruled out Ruled in: o Specify cause if known o Specify associated organism if known o Specify if present on admission Other, please specify Clinically unable to determine (Last Revision: December 2017-New) sepsis due to resistant UTI MTDD
--- NOTE | 2018-12-15 14:13 | PN ---
PROGRESS NOTE Patient is seen for followup for acute kidney injury on top of chronic kidney disease. Her renal function has been worsening over the last few days with creatinine up to 4 now. We are waiting for a stent exchange by Urology. Currently patient is on antibiotics for underlying urinary tract infection. Blood pressure had been low. Patient was maintained on IV fluids. However, she is complaining of some shortness of breath, increased lower extremity edema. Therefore, fluids have been discontinued. PHYSICAL EXAMINATION: On examination today, blood pressure was 112/71, heart rate 94 per minute. She is afebrile. Examination of the heart S1, S2. Examination of the lungs, bilateral breath sounds are heard. Abdomen is soft, nontender. Examination of the lower extremities shows edema 1+ bilaterally. DYNAMICS AX SOLUTION ARCHITECT exam is grossly intact. LABS: Show serum creatinine of 4.0, BUN 72, sodium 144, potassium 4.9, chloride 115, CO2 is 19, hemoglobin 7.0. ASSESSMENT: 1. Acute kidney injury mostly obstructive uropathy. There was an element of prerenal state; however, that seems to have resolved. Awaiting exchange of the bilateral ureteral stent by Urology. 2. Urinary tract infection, maintained on antibiotics. 3. Mild volume overload. Will give 1 dose of Lasix. 4. Mild metabolic acidosis. Maintained on oral sodium bicarb. 5. Anemia with severe iron-deficiency, status post IV iron. Maintained on Aranesp. PLAN: Continue Aranesp. Await ureteral stent exchange and continue antibiotics. MMODL / IJN: [id number] /
--- NOTE | 2018-12-15 22:38 | PN ---
PROGRESS NOTE [id number] white female with worsening creatinine of 4.0. No chest pain or shortness of breath. Continues to have worsening renal function. Will need ureteral stent replacements on Saturday, 2 days from now. Otherwise, continue with fluids and renal status monitoring, IV antibiotics for drug-resistant UTI. CARDIOVASCULAR: S1, S2. LUNGS: Clear. GI: Soft, distended. HEMATOLOGY: Negative Homans. ASSESSMENT: 1. Drug-resistant urinary tract infection. 2. Acute on chronic renal insufficiency. 3. Worsening renal function. Continue with IV antibiotics, ureteral stent replacement. Follow up in the next 24 to 48 hours. MMODL / IJN: [id number] /
[2018-12-16] MEDS: LEVOTHYROXINE 50 MCG TAB PO SCH (05:11)
[2018-12-16] MEDS: MIDODRINE 5 MG TAB PO SCH ×3 (08:22→17:26)
[2018-12-16] MEDS: SODIUM BICARBONATE TAB 650 MG TAB PO SCH ×2 (08:22→20:16)
[2018-12-16] MEDS: PANTOPRAZOLE 40 MG TABLET PO SCH (08:22)
[2018-12-16] MEDS: ESCITALOPRAM 20 MG TAB PO SCH (08:22)
[2018-12-16] MEDS: MORPHINE SULFATE 4 MG/ML SYRINGE IV PRN ×4 (08:23→23:23)
[2018-12-16] MEDS: ASPIRIN 325 MG TAB PO SCH (08:23)
[2018-12-16] MEDS: ERTAPENEM 0.5 GM in SODIUM CHLORIDE 0.9% 50 ML IVPB SCH (08:23)
[2018-12-16 15:32] LABS: Appearance,Urine Turbid (Clear); Bacteria,Urine Occasional /hpf; Bilirubin,Urine Negative (Negative); Blood,Urine Moderate (Negative); Color,Urine Yellow; Glucose,Urine (UA) Negative (Negative); Ketones,Urine Negative (Negative); Leukocyte Esterase,Urine Large (Negative); Nitrite,Urine Negative (Negative); PH, Urine 6.5 (5.0-8.0); Protein,Urine 2+ (Negative); RBC,Urine 68 /hpf (0-5); Specific Gravity,Urine 1.018 (1.001-1.035); Urobilinogen,Urine <2.0 mg/dL (<2.0); WBC,Urine >182 /hpf (0-5)
--- NOTE | 2018-12-16 16:53 | XR ---
EXAMINATION TYPE: XR chest 1V portable DATE OF EXAM: 12/16/2018 COMPARISON: Prior chest x-ray and CT 12/03/2018 HISTORY: Congestive heart failure, history of lung cancer TECHNIQUE: Single frontal view of the chest is obtained. FINDINGS: Findings are similar. There are postop changes noted centered over the mediastinum. Patien t is rotated. Probable subsegmental atelectatic changes or scarring present at the right lung base, t here is eventration of right hemidiaphragm. No evident pneumothorax. Heart size is likely stable. Rig ht jugular central venous catheter shows the distal tip of the right atrium. Left hemidiaphragm is se cured. The aorta is dense. I am loss in the left hemithorax. IMPRESSION: Probable basilar atelectasis or scarring. Postop changes.
[2018-12-16 17:05] LABS: Anisocytosis Slight; HGB 7.4 gm/dL (11.4-16.0); Hypochromasia Marked; MCH 24.5 pg (25.0-35.0); MCHC 28.3 g/dL (31.0-37.0); MCV 86.6 fL (80.0-100.0); Mean Platelet Volume 7.6; Platelet Count 407 k/uL (150-450); RBC 3.01 m/uL (3.80-5.40); RDW 18.9 % (11.5-15.5)
--- NOTE | 2018-12-16 17:48 | PN ---
PROGRESS NOTE DATE OF SERVICE: 12/16/2018 This 68-year-old woman who was admitted with drug-resistant UTI also had acute on chronic renal insufficiency. Patient is complaining of significant tremulousness as well as weakness; some wasting also. Nephrology and Urology are following the patient closely. PT/OT is also following the patient closely. Past medical history reviewed. The patient is on Invanz, also. REVIEW OF SYSTEMS: CARDIOVASCULAR SYSTEM: No angina, palpitations. RESPIRATORY SYSTEM: As mentioned earlier. GI: No nausea, vomiting. : No dysuria or retention. NERVOUS SYSTEM: Generalized weakness. CURRENT MEDICATIONS: Reviewed. They include: 1. Tylenol 650 q.6 p.r.n. 2. Aspirin 325 mg daily. 3. Daptomycin 300 mg IV q.48 hours. 4. Aranesp 40 mcg q.7 days. 5. Ertapenem 0.5 grams IV daily. 6. Lexapro 20 mg p.o. daily. 7. Synthroid 50 mcg p.o. daily. 8. Midodrine 5 mg before meals t.i.d. 9. Morphine sulfate 4 mg q.4 p.r.n. 10.Nitrostat p.r.n. 11.Protonix 40 mg daily. 12.Sodium bicarb 650 p.o. b.i.d. PHYSICAL EXAMINATION: Patient is alert, oriented x3. Pulse 88, blood pressure 108/60, respirations 16, temperature 97.8, pulse ox 96% on room air. HEENT: Conjunctivae normal. NECK: No jugular venous distention. CARDIOVASCULAR SYSTEM: S1, S2 muffled. RESPIRATORY SYSTEM: Breath sounds diminished at the bases. A few scattered rhonchi. No crackles. ABDOMEN: Soft, non-tender. LEGS: No edema. No swelling. NERVOUS SYSTEM: Diffusely weak. Wasting and tremors also present. LABS: Labs at this time show WBC 4.9, hemoglobin 7, sodium 144, potassium 4.9, creatinine 4.10. UA noted. The cultures are Enterococcus faecalis and Morganella morganii. ASSESSMENT: 1. Acute complicated urinary tract infection, drug-resistant, with Enterococcus faecalis as well as Morganella morganii, with possible sepsis. Drug Invanz. 2. Acute on chronic renal failure with acute tubular necrosis, prerenal renal failure. 3. Bilateral ureteral stents. 4. Anemia, symptomatic, multifactorial. 5. Hypoalbuminemia with mild to moderate protein-calorie malnutrition. 6. Gait dysfunction. 7. History of deep vein thrombosis. 8. History of gastrointestinal bleed. 9. History of breast cancer. 10.History of squamous cell cancer and melanoma. 11.History of lung cancer. 12.History of Clostridium difficile colitis. 13.History of portal vein thrombosis. 14.History of nonalcoholic cirrhosis. 15.Factor V Leiden deficiency. 16.History of appendectomy. 17.History of breast surgery. 18.History of depression. 19.FULL CODE. RECOMMENDATIONS AND DISCUSSION: In this 68-year-old woman who presented with multiple medical issues, at this time I recommend to continue the current management, continue with symptomatic treatment, IV antibiotics, supplement vitamins. Closely follow with multiple consultants. Further recommendations to follow. PT/OT evaluation eventually. ECF rehab. See orders for further details. Prognosis guarded. Further recommendations to follow. MMODL / IJN: [id number] / MTDD
--- NOTE | 2018-12-16 19:06 | PN ---
PROGRESS NOTE Patient is seen for followup for acute kidney injury on top of chronic kidney disease. The patient is comfortable. She denies any significant complaints except for nausea. Her oral intake is fair. The patient is scheduled for stent exchange tomorrow. PHYSICAL EXAMINATION: On examination today, blood pressure was 113/68, heart rate of 88 per minute, patient is afebrile. Examination of the heart S1, S2. Examination of the lungs, bilateral breath sounds are heard. ABDOMEN: Soft, nontender. Examination of lower extremities shows trace edema bilaterally. INSTRUCTOR OF SOCIOLOGY exam grossly intact. LABS: Not available from today. Hemoglobin was 7.4 g/dL. ASSESSMENT: 1. Acute kidney injury with most likely component of obstructive uropathy. Scheduled for stent exchange tomorrow. The patient is off IV fluids. 2. Anemia with severe iron deficiency status post IV iron. Maintained on Aranesp. 3. Chronic kidney disease stage IV, secondary to obstructive uropathy. 4. Urinary tract infection with Enterococcus faecalis and Morganella morganii, maintained on antibiotics. 5. Generalized debility. PLAN: Continue antibiotics. Repeat labs in a.m. MMODL / IJN: [id number] /
--- NOTE | 2018-12-16 19:42 | P.PN ---
Subjective Progress Note Date: 12/16/18 the patient will undergo cysto with exchange of bilateral double j catheters tomorrow Objective - Vital Signs Vital signs: Vital Signs Temp 97.8 F 12/16/18 15:18 Pulse 88 12/16/18 15:18 Resp 16 12/16/18 15:18 BP 108/60 12/16/18 15:18 Pulse Ox 96 12/16/18 15:18 Intake & Output 12/16/18 12/16/18 12/17/18 06:59 18:59 06:59 Intake Total 1030 Output Total 700 Balance -700 1030 Intake: Intake, IV Titration 50 Amount Ertapenem 0.5 gm In 50 Sodium Chloride 0.9% 50 ml @ 100 mls/hr IVPB DAILY [facility] Rx#:[id number] Oral 980 Output: Urine 700 Other: Voiding Method Indwelling Catheter Indwelling Catheter Indwelling Catheter # Bowel Movements 1 - Labs CBC & Chem 7: 12/16/18 16:22 12/15/18 06:19 Labs: Abnormal Lab Results - Last 24 Hours (Table) 12/16/18 12/16/18 Range/Units 15:17 16:22 RBC 3.01 L (3.80-5.40) m/uL Hgb 7.4 L (11.4-16.0) gm/dL Hct 26.0 L (34.0-46.0) % MCH 24.5 L (25.0-35.0) pg MCHC 28.3 L (31.0-37.0) g/dL RDW 18.9 H (11.5-15.5) % Urine Appearance Turbid H (Clear) Urine Protein 2+ H (Negative) Urine Blood Moderate H (Negative) Ur Leukocyte Esterase Large H (Negative) Urine RBC 68 H (0-5) /hpf Urine WBC >182 H (0-5) /hpf Urine WBC Clumps Moderate H (None) /hpf Urine Bacteria Occasional H (None) /hpf
[2018-12-17] MEDS: LEVOTHYROXINE 50 MCG TAB PO SCH (03:47)
[2018-12-17] MEDS: MORPHINE SULFATE 4 MG/ML SYRINGE IV PRN ×2 (07:29→13:59)
[2018-12-17] MEDS: ASPIRIN 325 MG TAB PO SCH (07:38)
[2018-12-17] MEDS: ESCITALOPRAM 20 MG TAB PO SCH (07:38)
[2018-12-17] MEDS: SODIUM BICARBONATE TAB 650 MG TAB PO SCH ×2 (07:38→20:06)
[2018-12-17] MEDS: MIDODRINE 5 MG TAB PO SCH ×3 (07:38→18:37)
[2018-12-17] MEDS: PANTOPRAZOLE 40 MG TABLET PO SCH (07:38)
[2018-12-17] MEDS: ERTAPENEM 0.5 GM in SODIUM CHLORIDE 0.9% 50 ML IVPB SCH (08:20)
[2018-12-17] MEDS ORDERED: SODIUM CHLORIDE 0.9% 500 ML 500 ML IV ONE (09:56)
[2018-12-17 10:22] LABS: Calcium 8.3 mg/dL (8.4-10.2); Potassium 4.8 mmol/L (3.5-5.1)
[2018-12-17] MEDS ORDERED: PROPOFOL 10 MG/ML 20 ML VIAL IV ONE (10:46)
[2018-12-17] MEDS ORDERED: LIDOCAINE 1% INJ 10MG/ML (20 ML MDV) ONE (10:46)
[2018-12-17] MEDS ORDERED: fentaNYL (PF) 50 MCG/ML 2 ML AMP ONE (10:46)
[2018-12-17] MEDS ORDERED: MIDAZOLAM 2 MG/2 ML VIAL ONE (10:46)
[2018-12-17] MEDS ORDERED: KETAMINE 10 MG/ML 20 ML VIAL ONE (10:46)
[2018-12-17] MEDS ORDERED: IOPAMIDOL-370 50ML BTL IRRIGATION ONE ×2 (11:29)
--- NOTE | 2018-12-17 11:58 | P.OP ---
Date of Procedure: 12/17/18 Preoperative Diagnosis: Bilateral hydronephrosis secondary to radiation therapy for uterine cancer Postoperative Diagnosis: Same Procedure(s) Performed: Cystoscopy exchange of bilateral ureteral catheter Anesthesia: MAC Surgeon: Dorian Contreras Pathology: none sent Condition: stable Disposition: PACU Indications for Procedure: The patient is an unfortunate 68-year-old female multiple medical problems including uterine carcinoma treated with radiation therapy and hysterectomy leading to radiation scarring of the bladder and ureters. She has secondary hydronephrosis to this. She also has a history of breast cancer, melanoma as well as bowel issues. He is brought in the hospital with a urine infection and has been treated. She now comes for stent change it was done several months ago. She has chronic renal failure due to obstructive uropathy. This may be aggravated by the infection and perhaps an occlusion of one of the ureteral catheters Description of Procedure: The patient is brought to the operating suite. She is given a sedative anesthetic. She's placed lithotomy position with a sterile prep and drape. Cystoscopy of the Foroblique lens and 22[place] sheath identifies a normal urethra. The bladder is chronically inflamed with edema. Both ureteral radha fices are identified. There is no obvious tumor or stone or Fistula. The left double-J catheters pulled to the urethral meatus. I attempted to pass an 035 wire through it. It is encrusted internally. I thus removed the stent and through the cystoscope passed an 035 wire up through the left ureteral orifice, ureter and into the kidney. Over the wires passed a 6 x 24 double-J catheter without difficulty I then reintroduced the cystoscope. I pulled the right double-J catheter to the urethral meatus. I Again attempt to pass a wire through the right double-J catheter but I failed to do so. It also is encrusted. I reintroduced the cystoscope into the bladder. Through the right ureter and 035 wires passed and meets obstruction in the proximal ureter. I passed a 6-[place] open-ended c atheter over the wire. This allows me to direct the wire into the pelvis without difficulty. Over the wires pass a 6 x 24 double-J catheter in the right kidney. Bladder is drained. I reintroduced a King catheter. The patient's awake and returned recovery room in good condition Impression. Bilateral hydronephrosis. The left kidney on computed tomography scan is somewhat atrophic. I suspect the right kidney was blocked due to an occluded catheter were secured to the renal insufficiency. Hopefully her renal insufficiency and urine infection will clear with the new double-J catheter.
[2018-12-17] MEDS ORDERED: ONDANSETRON 4 MG/2 ML VIAL IVP ONE (12:12)
[2018-12-17] MEDS ORDERED: SODIUM CHLORIDE 0.9% 1,000 ML IV ONE (12:12)
--- NOTE | 2018-12-17 16:46 | FL ---
EXAMINATION TYPE: FL cystogram DATE OF EXAM: 12/17/2018 COMPARISON: CT December 03, 2018 HISTORY: Renal stones TECHNIQUE: Fluoroscopy. FINDINGS: Fluoroscopic guidance was provided during retrograde cystogram procedure performed by Dr. Contreras. A total of 35 seconds of fluoroscopic time was utilized during the procedure and 4 spot image s are acquired. Images acquired show removal of one ureter stent and contrast opacification proximal portion of other ureter stent. IMPRESSION: As Above.
--- NOTE | 2018-12-17 17:12 | P.PN ---
Subjective Progress Note Date: 12/17/18 Principal diagnosis: Covering for Dr. Collado This is a 68-year-old woman who was recently admitted for drug-resistant UTI and also had acute on chronic renal insufficiency and is being closely monitored. Nephrology and urology are following the patient. Today patient was going down with Dr. Noble and undergoing double-J tube catheter replacement. Patient was also to have a PICC line placed for continued IV antibiotic therapy. Infectious disease is following closely and arranging for IV antibiotics upon discharge. Patient will be going to [facility]. Patient's hemoglobin today was 7.4 and is being closely monitored. Per nursing staff patient is asymptomatic and hemod ynamically stable. Will continue to monitor closely. Objective - Vital Signs Vital signs: Vital Signs Temp 97.8 F 12/17/18 14:49 Pulse 93 12/17/18 14:49 Resp 16 12/17/18 14:49 BP 92/56 12/17/18 14:49 Pulse Ox 95 12/17/18 14:49 Intake & Output 12/16/18 12/17/18 12/17/18 18:59 06:59 18:59 Intake Total 1030 400 Output Total 400 0 Balance 1030 -400 400 Weight 67.7 kg Intake: IV 400 Intake, IV Titration 50 Amount Ertapenem 0.5 gm In 50 Sodium Chloride 0.9% 50 ml @ 100 mls/hr IVPB DAILY [facility] Rx#:[id number] Oral 980 Output: Urine 400 Estimated Blood Loss 0 Other: Voiding Method Indwelling Catheter Indwelling Catheter Indwelling Catheter # Voids 1 # Bowel Movements 1 - Exam Gen: This is a 68-year-old female lying in bed in no acute distress. Vital signs are stable. Temp is 98.9F, pulse is 98, respirations are 16, blood pressure is 115/67, oxygen saturation is 93% on room air. Patient is going down for a double-J catheter replacement HEENT: Head is atraumatic, normocephalic. Pupils equal, round. Sclerae is anicteric. NECK: Supple. No JVD. No lymphadenopathy. No thyromegaly. LUNGS: Diminished breath sounds at the bases with a few scattered rhonchi noted. No wheezing noted on exam No intercostal retractions. HEART: Regular S1 and S2 are muffled. No murmur. ABDOMEN: Soft. Bowel sounds are present. No masses. No tenderness. EXTREMITIES: No pedal edema. Muscle wasting noted with tremors present on exam NEUROLOGICAL: Patient is awake, alert and oriented x3. Cranial nerves 2 through 12 are grossly intact. Diffuse weakness - Labs CBC & Chem 7: 12/16/18 16:22 12/17/18 09:27 Labs: Abnormal Lab Results - Last 24 Hours (Table) 12/16/18 12/17/18 Range/Units 16:22 09:27 RBC 3.01 L (3.80-5.40) m/uL Hgb 7.4 L (11.4-16.0) gm/dL Hct 26.0 L (34.0-46.0) % MCH 24.5 L (25.0-35.0) pg MCHC 28.3 L (31.0-37.0) g/dL RDW 18.9 H (11.5-15.5) % Chloride 118 H (98-107) mmol/L Carbon Dioxide 18 L (22-30) mmol/L BUN 72 H (7-17) mg/dL Creatinine 4.64 H (0.52-1.04) mg/dL Calcium 8.3 L (8.4-10.2) mg/dL Microbiology - Last 24 Hours (Table) 12/16/18 15:20 Urine Culture - Preliminary Urine,Catheterized Assessment and Plan Assessment: Acute complicated urinary tract infection, drug-resistant, with enterococcus faecalis as well as Morganella morganii, with possible sepsis. Currently on Invanz and daptomycin Acute on chronic renal failure with acute tubular necrosis, prerenal renal failure Bilateral ureteral stents Anemia, symptomatic, multifactorial Hypoalbuminemia with mild to moderate protein calorie malnutrition Gait dysfunction history of deep vein thrombosis history of gastro-intestinal bleed History of breast cancer history of squamous cell cancer and melanoma History of lung cancer History of Clostridium difficile colitis History of portal vein thrombosis History of nonalcoholic cirrhosis Factor 5 Leiden deficiency History of appendectomy History of breast surgery History of depression Full code Recommendations and discussion: In this 68-year-old female who is presented with multiple medical issues, we recommend to continue current medications, management, and symptomatic treatment. Continue with IV antibiotics per infectious disease recommendations as patient is receiving a PICC line today for continued IV antibiotic therapy. Infectious disease is arranging for long-term IV antibiotics. Continue to follow closely with multiple medical consultations. Will await report from marija holmanble-J catheter replacement today with urology. Further recommendations to follow. Case management and child protective services social worker following as patient will likely go to [facility] upon discharge. Guarded prognosis. Possible discharge in 24-48 hours.
--- NOTE | 2018-12-17 19:40 | PN ---
PROGRESS NOTE Patient was seen this morning. She was going to the OR for ureteral stent exchange. She was a bit nervous this morning. Blood pressure was 102/56, heart rate of 80 per minute. Patient was afebrile. Examination of the heart S1, S2. Examination of the lungs, decreased breath sounds at bases. Abdomen is soft, nontender. Examination of lower extremities shows trace edema bilaterally. 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 LABS: From today showed serum creatinine 4.64, BUN 72, sodium 145, potassium 4.8. ASSESSMENT: 1. Acute kidney injury, most likely obstructive uropathy. Scheduled for bilateral stent exchange today. 2. Urinary tract infection, status post antibiotics. Currently maintained on antibiotics. 3. Chronic kidney disease, stage IV, secondary to obstructive uropathy with atrophic left kidney and right kidney hydronephrosis. PLAN: Repeat labs in a.m. Expect improvement with the stent placement. MMODL / IJN: [id number] /
--- NOTE | 2018-12-17 22:45 | PN ---
PROGRESS NOTE DATE OF SERVICE: 12/17/2018. REASON FOR FOLLOWUP: Complicated urinary tract infection. INTERVAL HISTORY: The patient is currently afebrile. Patient has been taken to the OR this morning, status post exchange of ureteral stent bilaterally. The patient has tolerated the procedure. Currently denies any worsening abdominal pain. No chest pain or shortness of breath. No cough and no diarrhea. PHYSICAL EXAMINATION: Blood pressure 104/55, pulse of 84, temperature 97.8. She is 100% on 2 L nasal cannula. General description is an elderly female lying in bed in no distress. Respiratory system: Unlabored breathing. Clear to auscultation, anteriorly. Heart is S1, S2. Regular rate and rhythm. ABDOMEN: Soft, no tenderness. LABS: Hemoglobin 7.4, white count 7.0, BUN of 72, creatinine 4.64. DIAGNOSTIC IMPRESSION AND PLAN: Patient with complicated urinary tract infection in this patient who shows faecalis and Morganella in this patient who does HAVE MULTIPLE ANTIBIOTIC ALLERGIES. Patient is currently covered with daptomycin and Invanz to continue in view of complicated Infection. May need to continue with IV antibiotic for another week. This has been discussed with the nurse case manager and and continue supportive care. MMODL / IJN: [id number] /
[2018-12-18] MEDS: LEVOTHYROXINE 50 MCG TAB PO SCH (05:17)
--- NOTE | 2018-12-18 06:45 | P.PN ---
Subjective Progress Note Date: 12/18/18 The patient underwent stent change yesterday. She is feeling better. Her vital signs are stable. From urologic standpoint she can be discharged home when approved by medicine and infectious disease. Objective - Vital Signs Vital signs: Vital Signs Temp 98.2 F 12/18/18 01:50 Pulse 94 12/18/18 01:50 Resp 16 12/17/18 14:49 BP 93/53 12/18/18 01:50 Pulse Ox 97 12/18/18 01:50 Intake & Output 12/17/18 12/17/18 12/18/18 06:59 18:59 06:59 Intake Total 400 Output Total 400 0 400 Balance -400 400 -400 Weight 67.7 kg Intake: IV 400 Output: Urine 400 400 Estimated Blood Loss 0 Other: Voiding Method Indwelling Catheter Indwelling Catheter Indwelling Catheter # Voids 1 1 # Bowel Movements 1 - Labs CBC & Chem 7: 12/16/18 16:22 12/17/18 09:27 Labs: Abnormal Lab Results - Last 24 Hours (Table) 12/17/18 Range/Units 09:27 Chloride 118 H (98-107) mmol/L Carbon Dioxide 18 L (22-30) mmol/L BUN 72 H (7-17) mg/dL Creatinine 4.64 H (0.52-1.04) mg/dL Calcium 8.3 L (8.4-10.2) mg/dL Microbiology - Last 24 Hours (Table) 12/16/18 15:20 Urine Culture - Final Urine,Catheterized
[2018-12-18] MEDS: ESCITALOPRAM 20 MG TAB PO SCH (08:49)
[2018-12-18] MEDS: ASPIRIN 325 MG TAB PO SCH (08:49)
[2018-12-18] MEDS: SODIUM BICARBONATE TAB 650 MG TAB PO SCH ×2 (08:49→20:19)
[2018-12-18] MEDS: MIDODRINE 5 MG TAB PO SCH ×3 (08:49→18:23)
[2018-12-18] MEDS: ACETAMINOPHEN TAB 325 MG TAB PO PRN ×2 (08:49→18:44)
[2018-12-18] MEDS: PANTOPRAZOLE 40 MG TABLET PO SCH (08:49)
[2018-12-18 08:50] LABS: Calcium 8.3 mg/dL (8.4-10.2); Potassium 4.8 mmol/L (3.5-5.1)
[2018-12-18] MEDS: ERTAPENEM 0.5 GM in SODIUM CHLORIDE 0.9% 50 ML IVPB SCH (08:50)
[2018-12-18 09:10] LABS: Anisocytosis Slight; HCT 25.3 % (34.0-46.0); HGB 7.2 gm/dL (11.4-16.0); Hypochromasia Marked; MCH 25.8 pg (25.0-35.0); MCHC 28.6 g/dL (31.0-37.0); MCV 90.5 fL (80.0-100.0); Mean Platelet Volume 6.5; Platelet Count 377 k/uL (150-450); RBC 2.79 m/uL (3.80-5.40); RDW 19.1 % (11.5-15.5); WBC 3.9 k/uL (3.8-10.6)
[2018-12-18] MEDS ORDERED: FUROSEMIDE 40 MG TAB PO STA (10:26)
[2018-12-18 11:15] LABS: Eosinophils # (M) 0.08 k/uL (0-0.7); Lymphocytes # (M) 1.29 k/uL (1.0-4.8); Monocytes # (M) 0.12 k/uL (0-1.0); Neutrophils % (M) 62 %; Nucleated Red Blood Cells 0 /100 WBC (0-0); Total Cells Counted 100
[2018-12-18 11:18] LABS: Poikilocytosis (M) Present
[2018-12-18] MEDS: MORPHINE SULFATE 4 MG/ML SYRINGE IV PRN (12:36)
[2018-12-18] MEDS ORDERED: LIDOCAINE 1% INJ 10MG/ML (20 ML MDV) ONE (13:33)
--- NOTE | 2018-12-18 14:25 | IR ---
PICC LINE PLACEMENT: HISTORY: Infection requiring long-term antibiotic therapy PROCEDURE: Ultrasound and fluoroscopic guidance of PICC line placement. COMPLICATIONS: None ANESTHESIA: 1. 1% Lidocaine locally. FINDINGS/TECHNIQUE: The procedure was explained to the patient. The risks, complications, benefits and alternatives were discussed and any questions were answered. Informed consent was obtained. The patient was placed supine on the fluoroscopic table and prepped and draped in the usual sterile fash ion. Utilizing a 21 gauge needle and sonographic and fluoroscopic guidance, access in the right bas ilic vein was achieved and there is placement of a 0.018 guidewire. The vein is patent. A 4-F sheat h was placed over the guidewire. The guidewire and dilator were removed and a 4-F. PICC line was claudio gertrude through the sheath with the tip at the level of the SVC. The sheath was removed, the catheter wa s flushed and sutured into position. The patient was stable throughout the procedure and remained st able upon discharge from the Department of Radiology. The vein puncture was patent under ultrasound. A amos scale image was obtained to document patency of the vein punctured. All elements of the maximal barrier technique were utilized. FLUOROSCOPY TIME: 0.4 minutes and one image submitted IMPRESSION: Successful PICC line placement under ultrasound and fluoroscopic guidance.
--- NOTE | 2018-12-18 14:26 | PN ---
PROGRESS NOTE Patient is seen for followup for chronic kidney disease and acute kidney injury. She was admitted to the hospital with UTI. Patient has been maintained on antibiotics. She has an atrophic left kidney and right kidney showed hydronephrosis. In fact, bilateral hydronephrosis was noted. The patient had exchange of her ureteral stent yesterday; however, it appears from the notes that it was encrusted, but the procedure was successful and patient has had good urine output; however, her creatinine has increased to 4.7 today from 4.6. I will continue to monitor as it may start to decrease now since she just has the procedure yesterday. PHYSICAL EXAMINATION: Today, patient is comfortable. Blood pressure was 93/53, heart rate of 86 per minute. She is afebrile. Examination of the heart S1, S2. Examination of the lungs, bilateral breath sounds are heard. Abdomen is soft, non-tender. Examination of the lower extremities shows edema 1+ bilaterally. 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 LABS: Show hemoglobin 7.2, sodium 147, potassium 4.8, chloride 120, CO2 is 18, BUN 67, serum creatinine 4.7. UA shows WBCs more than 182 on 12/16/2018. ASSESSMENT: 1. Acute kidney injury secondary to obstructive uropathy, status post stent exchange yesterday. Expect improvement in renal function over the next few days. 2. Mild hypernatremia secondary to free water deficit. Patient is advised to increase plain water intake. 3. Lower extremity edema, mild hyperkalemia. I will give her a dose of p.o. Lasix. 4. Chronic kidney disease, NKF stage IV secondary to obstructive uropathy with baseline creatinine about 2.7-2.5 mg/dL. 5. Chronic hypotension maintained on midodrine. 6. Urinary tract infection with urine culture growing Enterococcus faecalis, Morganella morganii, maintained on antibiotics. Repeat cultures are negative. PLAN: Lasix p.o. x1. Encourage increased free water intake. Repeat labs in a.m. MMODL / IJN: [id number] /
[2018-12-18 18:40] LABS: Glucose,Whole Blood 99 mg/dL (75-99)
--- NOTE | 2018-12-18 23:56 | PN ---
PROGRESS NOTE DATE OF SERVICE: 12/18/2018 REASON FOR FOLLOWUP: Complicated urinary tract infection. INTERVAL HISTORY: The patient is currently afebrile. The patient has been breathing comfortably. Denies having any chest pain or cough. No nausea, vomiting or any worsening abdominal pain. PHYSICAL EXAMINATION: Blood pressure is 101/65 with a pulse of 79, temperature of 97.8. She is 93% on room air. General description is an elderly female up in the chair in no distress. RESPIRATORY SYSTEM: Unlabored breathing with decreased breath sounds at the base. No wheeze. HEART: S1, S2. Regular rate and rhythm. ABDOMEN: Soft. No tenderness. LABS: Hemoglobin 7.2, white count of 3.9 with a BUN of 67, creatinine 4.77. DIAGNOSTIC IMPRESSION AND PLAN: Patient with complicated urinary tract infection with Enterococcus faecalis and morganella in this patient who did have MULTIPLE ANTIBIOTIC ALLERGIES. Patient is currently covered with Invanz and daptomycin. She will continue for at least 2 weeks in the outpatient setting to finish her course of therapy. Continue with supportive care. MMEUGENIOL / YURIN: [id number] /
--- NOTE | 2018-12-19 01:37 | P.PN ---
Subjective Progress Note Date: 12/18/18 Principal diagnosis: Covering for Dr. Collado This is a 68-year-old woman who was recently admitted for drug-resistant UTI and also had acute on chronic renal insufficiency and is being closely monitored. Nephrology and urology are following the patient. Today patient was going down with Dr. Noble and undergoing double-J tube catheter replacement. Patient was also to have a PICC line placed for continued IV antibiotic therapy. Infectious disease is following closely and arranging for IV antibiotics upon discharge. Patient will be going to [facility]. Patient's hemoglobin today was 7.4 and is being closely monitored. Per nursing staff patient is asymptomatic and hemod ynamically stable. Will continue to monitor closely. 12/18/2018 Patient is sitting up in the chair in no acute distress. Patient underwent double J catheter replacement with Dr. Contreras yesterday and denies any acute overnight issues. Patient is being followed by nephrology. Current creatinine today is 4.77 which is slightly higher than previous. Will await repeat am labs to see the trend. Patient is receiving a PICC line today as she states they were unable to find a vein yesterday. Patient is having some bilateral lower extremity swelling that she states has worsened since yesterday. A one time dose of lasix was ordered by nephrology. Patient denies any chest pain or palpitations. Patient states she does have some shortness of breath with exertion. Patient denies any nausea or vomiting and is tolerating diet. Patient will be going to [facility] once stabilized. Will continue to monitor closely. Objective - Vital Signs Vital signs: Vital Signs Temp 98.1 F 12/18/18 19:05 Pulse 88 12/18/18 19:05 Resp 18 12/18/18 19:00 BP 97/56 12/18/18 19:05 Pulse Ox 94 L 12/18/18 19:05 Intake & Output 12/18/18 12/18/18 12/19/18 06:59 18:59 06:59 Intake Total 118 Output Total 400 400 Balance -400 -282 Intake: Oral 118 Output: Urine 400 400 Other: Voiding Method Indwelling Catheter Indwelling Catheter Indwelling Catheter # Voids 1 410 # Bowel Movements 1 - Exam Gen: This is a 68-year-old female lying in bed in no acute distress. Vital signs are stable. Temp is 97.9F, pulse is 86, respirations are 16, blood pressure is 95/63, oxygen saturation is 99% on 2L via [place] HEENT: Head is atraumatic, normocephalic. Pupils equal, round. Sclerae is anicteric. NECK: Supple. No JVD. No lymphadenopathy. No thyromegaly. LUNGS: Diminished breath sounds at the bases with a few scattered rhonchi noted. No wheezing noted on exam No intercostal retractions. HEART: Regular rhythm. S1 and S2 are muffled. No murmur. ABDOMEN: Soft. Bowel sounds are present. No masses. No tenderness. EXTREMITIES: mild bilateral lower extremity swelling and edema 2+ pitting. NEUROLOGICAL: Patient is awake, alert and oriented x3. Cranial nerves 2 through 12 are grossly intact. Diffuse weakness - Labs CBC & Chem 7: 12/18/18 07:53 12/18/18 07:53 Labs: Abnormal Lab Results - Last 24 Hours (Table) 12/18/18 12/18/18 Range/Units 07:53 07:53 RBC 2.79 L (3.80-5.40) m/uL Hgb 7.2 L (11.4-16.0) gm/dL Hct 25.3 L (34.0-46.0) % MCHC 28.6 L (31.0-37.0) g/dL RDW 19.1 H (11.5-15.5) % Sodium 147 H (137-145) mmol/L Chloride 120 H (98-107) mmol/L Carbon Dioxide 18 L (22-30) mmol/L BUN 67 H (7-17) mg/dL Creatinine 4.77 H (0.52-1.04) mg/dL Glucose 68 L (74-99) mg/dL Calcium 8.3 L (8.4-10.2) mg/dL Assessment and Plan Assessment: Acute complicated urinary tract infection, drug-resistant, with enterococcus faecalis as well as Morganella morganii, with possible sepsis. Currently on Invanz. Acute on chronic renal failure with acute tubular necrosis, prerenal renal failure Bilateral ureteral stents Anemia, symptomatic, multifactorial Hypoalbuminemia with mild to moderate protein calorie malnutrition Gait dysfunction history of deep vein thrombosis history of gastro-intestinal bleed History of breast cancer history of squamous cell cancer and melanoma History of lung cancer History of Clostridium difficile colitis History of portal vein thrombosis History of nonalcoholic cirrhosis Factor 5 Leiden deficiency History of appendectomy History of breast surgery History of depression Full code Recommendations and discussion: In this 68-year-old female who is presented with multiple medical issues, we recommend to continue current medications, management, and symptomatic treatment. Continue with IV antibiotics per infectious disease recommendations as patient is receiving a PICC line today for continued IV antibiotic therapy. Infectious disease is arranging for long-term IV antibiotics. Continue to follow closely with multiple medical consultations. Will repeat am labs. Further recommendations to follow. Case management and social media analyst following as patient will likely go to [facility] upon discharge. Guarded prognosis. Possible discharge in 24-48 hours.
[2018-12-19] MEDS: ACETAMINOPHEN TAB 325 MG TAB PO PRN ×3 (04:14→21:32)
[2018-12-19] MEDS: LEVOTHYROXINE 50 MCG TAB PO SCH (05:42)
[2018-12-19 08:14] LABS: Anisocytosis Slight; Basophils % (A) 1 %; Eosinophils # (A) 0.1 k/uL (0-0.7); Eosinophils % (A) 3 %; HCT 24.3 % (34.0-46.0); HGB 7.1 gm/dL (11.4-16.0); Hypochromasia Marked; Lymphocytes # (A) 1.1 k/uL (1.0-4.8); Lymphocytes % (A) 25 %; MCH 26.1 pg (25.0-35.0); MCHC 29.1 g/dL (31.0-37.0); MCV 89.7 fL (80.0-100.0); Mean Platelet Volume 6.3; Monocytes # (A) 0.2 k/uL (0-1.0); Monocytes % (A) 5 %; Neutrophils # (A) 2.8 k/uL (1.3-7.7); Neutrophils % (A) 64 %; Platelet Count 388 k/uL (150-450); RDW 19.6 % (11.5-15.5); WBC 4.3 k/uL (3.8-10.6)
[2018-12-19 08:30] LABS: Potassium 4.9 mmol/L (3.5-5.1)
[2018-12-19] MEDS: PANTOPRAZOLE 40 MG TABLET PO SCH (08:37)
[2018-12-19] MEDS: ASPIRIN 325 MG TAB PO SCH (08:37)
[2018-12-19] MEDS: MIDODRINE 5 MG TAB PO SCH ×3 (08:37→17:48)
[2018-12-19] MEDS: SODIUM BICARBONATE TAB 650 MG TAB PO SCH ×2 (08:37→21:32)
[2018-12-19] MEDS: ESCITALOPRAM 20 MG TAB PO SCH (08:37)
[2018-12-19] MEDS: ERTAPENEM 0.5 GM in SODIUM CHLORIDE 0.9% 50 ML IVPB SCH (08:38)
--- NOTE | 2018-12-19 15:45 | P.PN ---
Subjective Progress Note Date: 12/19/18 Principal diagnosis: Covering for Dr. Collado This is a 68-year-old woman who was recently admitted for drug-resistant UTI and also had acute on chronic renal insufficiency and is being closely monitored. Nephrology and urology are following the patient. Today patient was going down with Dr. Noble and undergoing double-J tube catheter replacement. Patient was also to have a PICC line placed for continued IV antibiotic therapy. Infectious disease is following closely and arranging for IV antibiotics upon discharge. Patient will be going to [facility]. Patient's hemoglobin today was 7.4 and is being closely monitored. Per nursing staff patient is asymptomatic and hemod ynamically stable. Will continue to monitor closely. 12/18/2018 Patient is sitting up in the chair in no acute distress. Patient underwent double J catheter replacement with Dr. Contreras yesterday and denies any acute overnight issues. Patient is being followed by nephrology. Current creatinine today is 4.77 which is slightly higher than previous. Will await repeat am labs to see the trend. Patient is receiving a PICC line today as she states they were unable to find a vein yesterday. Patient is having some bilateral lower extremity swelling that she states has worsened since yesterday. A one time dose of lasix was ordered by nephrology. Patient denies any chest pain or palpitations. Patient states she does have some shortness of breath with exertion. Patient denies any nausea or vomiting and is tolerating diet. Patient will be going to [facility] once stabilized. Will continue to monitor closely. 12/19/2018 Patient is sitting up in no acute distress with bilateral legs elevated for con tinued lower extremity edema. Edema to the feet have improved and SCDs are noted. Patient was given a one-time dose of oral Lasix per nephrology and states that it helped. Patient did receive a PICC line yesterday for long-term IV antibiotic therapy. Infectious disease is following closely. Patient's urine output has improved and looks more clear and is currently on IV antibiotics and will continue at this time. Patient continues to have abdominal and lower back pain. Patient does have IV morphine ordered as needed and will continue to monitor closely. Discussed with the patient at length about concerned with her low blood pressure and current kidney conditions the pain medications should be taken cautiously. Patient verbalizes understanding of this treatment plan. Nephrology is following. Patient's creatinine continues to rise and is 4.90 which is up from 4.77 yesterday. Will continue to monitor closely. Patient continues to work with PT/OT for strength and mobility. Simin garcia denies any chest pain or palpitations at this time. Patient is afebrile. Patient denies any nausea or vomiting but is having some abdominal discomfort. Patient states that she is passing gas and having bowel movements. Patient denies noticing any blood in the stool and monitoring hemoglobin closely as her hemoglobin today is 7.1. Objective - Vital Signs Vital signs: Vital Signs Temp 97.6 F 12/19/18 15:00 Pulse 85 12/19/18 15:00 Resp 18 12/19/18 15:00 BP 95/59 12/19/18 15:00 Pulse Ox 92 L 12/19/18 15:00 Intake & Output 12/18/18 12/19/18 12/19/18 18:59 06:59 18:59 Intake Total 118 1260 Output Total 400 1200 400 Balance -282 60 -400 Intake: Oral 118 1260 Output: Urine 400 1200 400 Uretheral (King) 600 Other: Voiding Method Indwelling Catheter Indwelling Catheter Indwelling Catheter # Voids 410 # Bowel Movements 1 1 1 - Exam Gen: This is a 68-year-old female lying in bed in no acute distress. Vital signs are stable. Temp is 97.6F, pulse is 85, respirations are 18, blood pressure is 95/59, oxygen saturation is 92% on room air HEENT: Head is atraumatic, normocephalic. Pupils equal, round. Sclerae is anicteric. NECK: Supple. No JVD. No lymphadenopathy. No thyromegaly. LUNGS: Diminished breath sounds at the bases with a few scattered rhonchi noted. No wheezing noted on exam No intercostal retractions. HEART: Regular rhythm. S1 and S2 are muffled. No murmur. ABDOMEN: Soft. Bowel sounds are present. No masses. Mild tenderness upon palpation. EXTREMITIES: mild bilateral lower extremity swelling and edema 2+ pitting. Pedal edema has slightly improved NEUROLOGICAL: Patient is awake, alert and oriented x3. Cranial nerves 2 through 12 are grossly intact. Diffuse weakness - Labs CBC & Chem 7: 12/19/18 07:44 12/19/18 07:44 Labs: Abnormal Lab Results - Last 24 Hours (Table) 12/19/18 12/19/18 Range/Units 07:44 07:44 RBC 2.70 L (3.80-5.40) m/uL Hgb 7.1 L (11.4-16.0) gm/dL Hct 24.3 L (34.0-46.0) % MCHC 29.1 L (31.0-37.0) g/dL RDW 19.6 H (11.5-15.5) % Sodium 149 H (137-145) mmol/L Chloride 119 H (98-107) mmol/L Carbon Dioxide 21 L (22-30) mmol/L BUN 66 H (7-17) mg/dL Creatinine 4.90 H (0.52-1.04) mg/dL Glucose 120 H (74-99) mg/dL Calcium 8.0 L (8.4-10.2) mg/dL Assessment and Plan Assessment: Acute complicated urinary tract infection, drug-resistant, with enterococcus faecalis as well as Morganella morganii, with possible sepsis. Currently on Invanz. Acute on chronic renal failure with acute tubular necrosis, prerenal renal failure Bilateral ureteral stents replaced yesterday with Dr. Contreras Anemia, symptomatic, multifactorial Hypoalbuminemia with mild to moderate protein calorie malnutrition Gait dysfunction history of deep vein thrombosis history of gastro-intestinal bleed History of breast cancer history of squamous cell cancer and melanoma History of lung cancer History of Clostridium difficile colitis History of portal vein thrombosis History of nonalcoholic cirrhosis Factor 5 Leiden deficiency History of appendectomy History of breast surgery History of depression Full code Recommendations and discussion: In this 68-year-old female who is presented with multiple medical issues, we recommend to continue current medications, management, and symptomatic treatment. Creatinine continues to trend upwards and is currently 4.9. Nephrology is following closely. Continue with IV antibiotics per infectious disease recommendations as patient received a PICC yesterday for continued IV antibiotic therapy. Infectious disease is arranging for long-term IV antibiotics. Continue to follow closely with multiple medical consultations. Will repeat am labs. Further recommendations to follow. Case management and social professionals following as patient will likely go to [facility] upon discharge. Guarded prognosis. Possible discharge in 24-48 hours.
--- NOTE | 2018-12-19 17:18 | PN ---
PROGRESS NOTE DATE OF SERVICE: 12/19/2018. REASON FOR FOLLOWUP: Complicated urinary tract infection. INTERVAL HISTORY: The patient is currently afebrile. She has been complaining of feeling dizzy. No headache, though. No chest pain, shortness of breath or cough. No nausea or vomiting. No abdominal pain or diarrhea. PHYSICAL EXAMINATION: Blood pressure 96/60 with a pulse of 82, temperature 98.1. She is 100% on 2 L nasal cannula. General description is an elderly female up in the chair in no distress. RESPIRATORY SYSTEM: Unlabored breathing. Clear to auscultation anteriorly. HEART: S1, S2. Regular rate and rhythm. ABDOMEN: Soft. No tenderness. Urine is currently clearing up. LABS: Hemoglobin 7.1, white count 4.3 with a BUN of 66, creatinine 4.90. DIAGNOSTIC IMPRESSION AND PLAN: Patient with Enterococcus faecalis, morganella urinary tract infection, currently covered with Invanz, to continue for another week to 10 days to finish her course of therapy. Monitor clinical course and kidney function closely. Continue with supportive care. MMODL / YURIN: [id number] /
[2018-12-19] MEDS: DEXTROSE 5% IN WATER 1,000 ML IV SCH (17:46)
--- NOTE | 2018-12-19 18:39 | PN ---
PROGRESS NOTE Patient is seen for followup for acute kidney injury. It is mainly obstructive uropathy. Patient is status post stent exchange done yesterday. Serum creatinine continues to rise. Patient has not been eating or drinking much. Her urine output seems to have improved. Patient has left atrophic kidney and she had right hydronephrosis. [id number] urine output now at about 1600. On examination today, blood pressure was 96/60, heart rate of 82 per minute. Patient is afebrile. EXAMINATION OF THE HEART: S1 and S2. EXAMINATION OF LUNGS: Decreased breath sounds at bases. ABDOMEN: Soft, non-tender. Examination of lower extremities shows edema 1+ bilaterally. Labs show hemoglobin 7.1, sodium 149, potassium 4.9, BUN 66, serum creatinine 4.9. ASSESSMENT: 1. Acute kidney injury, mostly obstructive uropathy, status post stent exchange. Patient has left atrophic kidney, and right kidney was hydronephrotic. Her creatinine continues to rise, although urine output has improved. If her renal function continues to worsen, patient will need to start dialysis. 2. Hypernatremia associated with free water deficit. Patient is encouraged to increase oral intake. I will add a small amount of D5W. 3. Severe urinary tract infection with Enterococcus faecalis and Morganella morganii with sepsis, maintained on Invanz. 4. Chronic kidney disease, stage IV, secondary to obstructive uropathy; baseline creatinine previously 2.7 to 2.5 mg/dL. 5. Chronic hypotension, maintained on midodrine. PLAN: Add D5W at 50 mL/hour. Repeat labs in a.m. If renal function continues to worsen, patient will need to start dialysis. MMODL / IJN: [id number] /
[2018-12-20] MEDS: LEVOTHYROXINE 50 MCG TAB PO SCH (05:45)
[2018-12-20] MEDS: ACETAMINOPHEN TAB 325 MG TAB PO PRN ×3 (05:45→18:06)
[2018-12-20 07:33] LABS: Potassium 5.9 mmol/L (3.5-5.1)
[2018-12-20] MEDS: PANTOPRAZOLE 40 MG TABLET PO SCH (07:37)
[2018-12-20] MEDS: MIDODRINE 5 MG TAB PO SCH ×3 (07:37→18:06)
[2018-12-20 07:51] LABS: Anisocytosis Moderate; Basophils # (A) 0.1 k/uL (0-0.2); Basophils % (A) 1 %; Eosinophils # (A) 0.1 k/uL (0-0.7); Eosinophils % (A) 2 %; HCT 27.6 % (34.0-46.0); HGB 8.1 gm/dL (11.4-16.0); Hypochromasia Marked; Lymphocytes # (A) 1.1 k/uL (1.0-4.8); Lymphocytes % (A) 22 %; MCHC 29.5 g/dL (31.0-37.0); Mean Platelet Volume 6.5; Monocytes # (A) 0.3 k/uL (0-1.0); Monocytes % (A) 5 %; Neutrophils # (A) 3.4 k/uL (1.3-7.7); Neutrophils % (A) 68 %; Platelet Count 374 k/uL (150-450); RBC 3.14 m/uL (3.80-5.40); RDW 20.2 % (11.5-15.5); WBC 5.1 k/uL (3.8-10.6)
[2018-12-20] MEDS: SODIUM BICARBONATE TAB 650 MG TAB PO SCH ×3 (08:34→20:53)
[2018-12-20] MEDS: ERTAPENEM 0.5 GM in SODIUM CHLORIDE 0.9% 50 ML IVPB SCH (08:35)
[2018-12-20] MEDS: ESCITALOPRAM 20 MG TAB PO SCH (08:35)
[2018-12-20] MEDS: ASPIRIN 325 MG TAB PO SCH (08:35)
[2018-12-20] MEDS ORDERED: INSULIN REGULAR 100 UNIT/ML VIAL IV ONE (10:46)
[2018-12-20] MEDS ORDERED: SODIUM BICARB 8.4% 50 ML SYR (1 MEQ/ML) IV STA (10:46)
[2018-12-20] MEDS ORDERED: DEXTROSE 50% SYRINGE 50 ML IVP STA (10:46)
[2018-12-20] MEDS ORDERED: DEXTROSE 10 % IN WATER 250 ML IV ONE (10:48)
--- NOTE | 2018-12-20 10:48 | P.PN ---
Subjective Patient is seen in follow-up for acute kidney injury on chronic kidney disease. Patient has chronic kidney disease stage IV with baseline creatinine near 2.5. Creatinine peaked at 4.9 this admission and is 4.68 today. She remains nonoliguric. Sodium this morning is 147 and potassium is 5.9. She is awake and alert. Denies chest pain or shortness of breath. No vomiting or diarrhea. Patient underwent cystoscopy with bilateral ureteral stent exchange on December 17. Vital signs are stable. General: The patient appeared well nourished and normally developed. HEENT: Head exam is unremarkable. Neck is without jugular venous distension. LUNGS: Lungs are clear to auscultation and percussion. Breath sounds decreased. HEART: Rate and Rhythm are regular. First and second heart sounds normal. No murmurs, rubs or gallops. ABDOMEN: Abdominal exam reveals normal bowel sounds. Non-tender. EXTREMITITES: 1+ edema. Objective - Vital Signs Vital signs: Vital Signs Temp 98.1 F 12/20/18 07:00 Pulse 78 12/20/18 07:00 Resp 16 12/20/18 07:00 BP 108/66 12/20/18 07:00 Pulse Ox 94 L 12/20/18 07:58 Intake & Output 12/19/18 12/20/18 12/20/18 18:59 06:59 18:59 Intake Total 200 1200 222 Output Total 700 800 Balance -500 400 222 Intake: Intake, IV Titration 600 Amount Dextrose 5% in Water 1, 600 000 ml @ 50 mls/hr IV . Q20H [facility] Rx#:[id number] Oral 200 600 222 Output: Urine 700 800 Uretheral (King) 400 Other: Voiding Method Indwelling Catheter Indwelling Catheter Indwelling Catheter # Bowel Movements 1 - Labs CBC & Chem 7: 12/20/18 06:53 12/20/18 06:53 Labs: Abnormal Lab Results - Last 24 Hours (Table) 12/20/18 12/20/18 Range/Units 06:53 06:53 RBC 3.14 L (3.80-5.40) m/uL Hgb 8.1 L (11.4-16.0) gm/dL Hct 27.6 L (34.0-46.0) % MCHC 29.5 L (31.0-37.0) g/dL RDW 20.2 H (11.5-15.5) % Sodium 147 H (137-145) mmol/L Potassium 5.9 H (3.5-5.1) mmol/L Chloride 120 H (98-107) mmol/L Carbon Dioxide 19 L (22-30) mmol/L BUN 67 H (7-17) mg/dL Creatinine 4.68 H (0.52-1.04) mg/dL Glucose 106 H (74-99) mg/dL Calcium 8.0 L (8.4-10.2) mg/dL Assessment and Plan Plan: Assessment: 1. Acute kidney injury secondary to obstructive uropathy. Creatinine peaked at 4.9 this admission and is 4.68 today. 2. Bilateral hydronephrosis status post exchange of ureteral stents this admission. Urology following. 3. Hypernatremia secondary to lack of oral water intake. Better. 4. Hyperkalemia secondary to acute kidney injury and metabolic acidosis. 5. Anemia of chronic kidney disease. Maintained on Aranesp. 6. UTI maintained on antibiotics. 7. Chronic kidney disease stage IV secondary to obstructive uropathy. Baseline creatinine near 2.5. 8. Chronic hypotension maintained on midodrine. 9. Metabolic acidosis due to acute kidney injury maintained on oral sodium bi carbonate. Plan: Increase D5W to 70 mL an hour. 10 units of IV insulin with an amp of D50 now. 2 A of sodium bicarbonate IV push now. Low potassium diet. Repeat potassium level this afternoon. Continue to monitor renal function and urine output. Continue to assess on a daily basis for need for renal replacement therapy.
[2018-12-20] MEDS: DEXTROSE 5% IN WATER 1,000 ML IV SCH (14:24)
--- NOTE | 2018-12-20 22:34 | PN ---
PROGRESS NOTE DATE OF SERVICE: 12/20/2018. REASON FOR FOLLOWUP: Complicated urinary tract infection. INTERVAL HISTORY: The patient is currently afebrile. The patient has been breathing comfortably. The patient complains of feeling weak and tired and some dizziness. No chest pain. No cough. Abdominal pain has improved. No nausea, vomiting or diarrhea. PHYSICAL EXAMINATION: Blood pressure is 104/53 with a pulse of 79. Temperature 97.9. General description is an elderly female up in the chair in no distress. Respiratory system: Unlabored breathing. Clear to auscultation anteriorly. Heart S1, S2 regular rate and rhythm. Abdomen soft. No tenderness. LABS: Hemoglobin 8.1, white count 5.1 with a BUN of 67, creatinine is 4.68. DIAGNOSTIC IMPRESSION AND PLAN: Patient with complicated urinary tract infection. Urine culture positive for Morganella. The patient is covered with . Continue supportive care. MMODL / IJN: [id number] /
[2018-12-21] MEDS: DEXTROSE 5% IN WATER 1,000 ML IV SCH ×3 (04:10→22:35)
[2018-12-21] MEDS: LEVOTHYROXINE 50 MCG TAB PO SCH (05:24)
[2018-12-21 07:27] LABS: Calcium 7.5 mg/dL (8.4-10.2); Magnesium 1.3 mg/dL (1.6-2.3); Potassium 4.3 mmol/L (3.5-5.1)
[2018-12-21] MEDS: PANTOPRAZOLE 40 MG TABLET PO SCH (07:42)
[2018-12-21] MEDS: SODIUM BICARBONATE TAB 650 MG TAB PO SCH ×2 (07:42→20:38)
[2018-12-21] MEDS: MIDODRINE 5 MG TAB PO SCH ×3 (07:42→17:12)
[2018-12-21] MEDS: ACETAMINOPHEN TAB 325 MG TAB PO PRN ×3 (07:42→20:38)
[2018-12-21] MEDS: ASPIRIN 325 MG TAB PO SCH (07:42)
[2018-12-21] MEDS: ESCITALOPRAM 20 MG TAB PO SCH (07:42)
[2018-12-21] MEDS: ERTAPENEM 0.5 GM in SODIUM CHLORIDE 0.9% 50 ML IVPB SCH (08:19)
[2018-12-21] MEDS ORDERED: FUROSEMIDE 10 MG/ML 4 ML VIAL IV STA (11:11)
--- NOTE | 2018-12-21 11:12 | P.PN ---
Subjective Patient is seen in follow-up for acute kidney injury on chronic kidney disease. Patient has chronic kidney disease stage IV with baseline creatinine near 2.5. Creatinine peaked at 4.9 this admission and is 4.46 today. She remains nonoliguric. Sodium this morning is 146 and potassium is down to 4.3. She is awake and alert. Denies chest pain or shortness of breath. No vomiting or diarrhea. Patient underwent cystoscopy with bilateral ureteral stent exchange on December 17. Complains of swelling in her lower extremities. Vital signs are stable. General: The patient appeared well nourished and normally developed. HEENT: Head exam is unremarkable. Neck is without jugular venous distension. LUNGS: Lungs are clear to auscultation and percussion. Breath sounds decreased. HEART: Rate and Rhythm are regular. First and second heart sounds normal. No murmurs, rubs or gallops. ABDOMEN: Abdominal exam reveals normal bowel sounds. Non-tender. EXTREMITITES: 1+ edema. Objective - Vital Signs Vital signs: Vital Signs Temp 98.1 F 12/21/18 07:00 Pulse 74 12/21/18 07:00 Resp 16 12/21/18 07:00 BP 104/63 12/21/18 07:00 Pulse Ox 90 L 12/21/18 07:00 Intake & Output 12/20/18 12/21/18 12/21/18 18:59 06:59 18:59 Intake Total 1574 296 Output Total 300 Balance 1574 -300 296 Intake: Intake, IV Titration 760 Amount Dextrose 10 % in Water 250 250 ml @ 999 mls/hr IV ONCE ONE Rx#:[id number] Dextrose 5% in Water 1, 210 000 ml @ 70 mls/hr IV . [id number] [facility] Rx#:[id number] Ertapenem 0.5 gm In 300 Sodium Chloride 0.9% 50 ml @ 100 mls/hr IVPB DAILY [facility] Rx#:[id number] Oral 814 296 Output: Urine 300 Other: Voiding Method Indwelling Catheter Indwelling Catheter Indwelling Catheter # Bowel Movements 2 - Labs CBC & Chem 7: 12/20/18 06:53 12/21/18 07:00 Labs: Abnormal Lab Results - Last 24 Hours (Table) 12/21/18 Range/Units 07:00 Sodium 146 H (137-145) mmol/L Chloride 116 H (98-107) mmol/L BUN 58 H (7-17) mg/dL Creatinine 4.46 H (0.52-1.04) mg/dL Calcium 7.5 L (8.4-10.2) mg/dL Magnesium 1.3 L (1.6-2.3) mg/dL Assessment and Plan Plan: Assessment: 1. Acute kidney injury secondary to obstructive uropathy. Creatinine peaked at 4.9 this admission and is 4.46 today. 2. Bilateral hydronephrosis status post exchange of ureteral stents this admission. Urology following. 3. Hypernatremia secondary to lack of oral water intake. Better. 4. Hyperkalemia secondary to acute kidney injury and metabolic acidosis. Improved with medical management. 5. Anemia of chronic kidney disease. Maintained on Aranesp. 6. UTI maintained on antibiotics. 7. Chronic kidney disease stage IV secondary to obstructive uropathy. Baseline creatinine near 2.5. 8. Chronic hypotension maintained on midodrine. 9. Metabolic acidosis due to acute kidney injury maintained on oral sodium bicarbonate. Better. 10. Hypomagnesemia from poor oral intake. Plan: Maintain D5W at 70 mL an hour. Lasix 40 mg IV once today. Replace magnesium. 3 g IV today. Continue to monitor renal function and urine output. Continue to assess on a daily basis for need for renal replacement therapy.
[2018-12-21] MEDS: MAGNESIUM SULFATE-D5W PMX 1 GM in DEXTROSE/WATER 1 100ML.BAG IVPB SCH ×3 (11:34→13:38)
--- NOTE | 2018-12-21 17:01 | PN ---
PROGRESS NOTE DATE OF SERVICE: 12/21/2018. REASON FOR FOLLOWUP: Complicated urinary tract infection. INTERVAL HISTORY: The patient is currently afebrile. Patient has been breathing comfortably. Still complaining of feeling dizzy when she gets up. No headache. No chest pain, cough. No abdominal pain or diarrhea. PHYSICAL EXAMINATION: Blood pressure 96/60 with a pulse of 90. Temperature 97.9. She is 98% on room air. General description is an elderly female up in the bed in no distress. Respiratory system: Unlabored breathing with decreased breath sounds at the bases. No wheeze. Heart S1, S2. Regular rate and rhythm. Abdomen soft. No tenderness. Genitourinary: King catheter draining clear urine. LABS: His creatinine is down to 4.46. DIAGNOSTIC IMPRESSION AND PLAN: Patient complicated urinary tract infection status post recent replacement Morganella. Patient covered with Invanz to continue for another 10 days to finish a course of therapy. Continue supportive care. MMODL / IJN: [id number] /
--- NOTE | 2018-12-22 | P.PN ---
Subjective Progress Note Date: 12/20/18 Principal diagnosis: Acute urinary tract infection complicated Acute on chronic kidney disease Hyperkalemia This is a 68-year-old woman who was recently admitted for drug-resistant UTI and also had acute on chronic renal insufficiency and is being closely monitored. Nephrology and urology are following the patient. Today patient was going down with Dr. Noble and undergoing double-J tube catheter replacement. Patient was also to have a PICC line placed for continued IV antibiotic therapy. Infectious disease is following closely and arranging for IV antibiotics upon discharge. Patient will be going to [facility]. Patient's hemoglobin today was 7.4 and is being closely monitored. Per nursing staff patient is asymptomatic and hemodynamically stable. Will continue to monitor closely. 12/18/2018 Patient is sitting up in the chair in no acute distress. Patient underwent double J catheter replacement with Dr. Contreras yesterday and denies any acute overnight issues. Patient is being followed by nephrology. Current creatinine today is 4.77 which is slightly higher than previous. Will await repeat am labs to see the trend. Patient is receiving a PICC line today as she states they were unable to find a vein yesterday. Patient is having some bilateral lower extremity swelling that she states has worsened since yesterday. A one time dose of lasix was ordered by nephrology. Patient denies any chest pain or palpitations. Patient states she does have some shortness of breath with exertion. Patient denies any nausea or vomiting and is tolerating diet. Patient will be going to [facility] once stabilized. Will continue to monitor closely. 12/19/2018 Patient is sitting up in no acute distress with bilateral legs elevated for continued lower extremity edema. Edema to the feet have improved and SCDs are noted. Patient was given a one-time dose of oral Lasix per nephrology and states that it helped. Patient did receive a PICC line yesterday for long-term IV antibiotic therapy. Infectious disease is following closely. Patient's urine output has improved and looks more clear and is currently on IV antibiotics and will continue at this time. Patient continues to have abdominal and lower back pain. Patient does have IV morphine ordered as needed and will c ontinue to monitor closely. Discussed with the patient at length about concerned with her low blood pressure and current kidney conditions the pain medications should be taken cautiously. Patient verbalizes understanding of this treatment plan. Nephrology is following. Patient's creatinine continues to rise and is 4.90 which is up from 4.77 yesterday. Will continue to monitor closely. Patient continues to work with PT/OT for strength and mobility. Patient denies any chest pain or palpitations at this time. Patient is afebrile. Patient denies any nausea or vomiting but is having some abdominal discomfort. Patient states that she is passing gas and having bowel movements. Patient denies noticing any blood in the stool and monitoring hemoglobin closely as her hemoglobin today is 7.1. 12 20 2018 Patient is status post cystoscopy with bilateral ureteral stent exchange on 12/17/2018 Patient is currently sitting in a chair comfortably. Complains of abdominal pain. Otherwise urine is clear. Patient is still dehydrated with sodium level 147 dose from 149 today. Potassium level is 5.9. Creatinine 4.68 with slight improvement. Patient does have chronic kidney disease stage IV with baseline creatinine around 2.5. No complaints of nausea vomiting or diarrhea. No fever no chills. Patient is being continued on gentle hydration with D5 water at 70 mL per hour. Currently on antibiotics in the form of Invanz for enterococcus urinary tract infection. Next and pulmonary and ID is on board. Current medications reviewed. Objective - Vital Signs Vital signs: Vital Signs Temp 98.4 F 12/21/18 19:59 Pulse 88 12/21/18 19:59 Resp 17 12/21/18 19:59 BP 99/62 12/21/18 19:59 Pulse Ox 95 12/21/18 19:59 Intake & Output 12/21/18 12/21/18 12/22/18 06:59 18:59 06:59 Intake Total 1023 Output Total 300 450 675 Balance -300 573 -675 Intake: Oral 1023 Output: Urine 300 450 675 Other: Voiding Method Indwelling Catheter Indwelling Catheter Indwelling Catheter - Exam Gen: This is a 68-year-old female lying in bed in no acute distress. Vital signs are stable. HEENT: Head is atraumatic, normocephalic. Pupils equal, round. Sclerae is anicteric. NECK: Supple. No JVD. No lymphadenopathy. No thyromegaly. LUNGS: Diminished breath sounds at the bases with a few scattered rhonchi noted. No wheezing noted on exam No intercostal retractions. HEART: Regular rhythm. S1 and S2 are muffled. No murmur. ABDOMEN: Soft. Bowel sounds are present. No masses. Mild tenderness upon palpation. EXTREMITIES: mild bilateral lower extremity swelling and edema 2+ pitting. Pedal edema has slightly improved NEUROLOGICAL: Patient is awake, alert and oriented x3. Cranial nerves 2 through 12 are grossly intact. Diffuse weakness - Labs CBC & Chem 7: 12/20/18 06:53 12/21/18 07:00 Labs: Abnormal Lab Results - Last 24 Hours (Table) 12/21/18 Range/Units 07:00 Sodium 146 H (137-145) mmol/L Chloride 116 H (98-107) mmol/L BUN 58 H (7-17) mg/dL Creatinine 4.46 H (0.52-1.04) mg/dL Calcium 7.5 L (8.4-10.2) mg/dL Magnesium 1.3 L (1.6-2.3) mg/dL Assessment and Plan Assessment: Acute complicated urinary tract infection, drug-resistant, with enterococcus faecalis as well as Morganella morganii, with possible sepsis. Currently on Invanz. Acute on chronic renal failure with acute tubular necrosis, prerenal renal failure Bilateral ureteral stents replaced yesterday with Dr. Contreras Anemia, symptomatic, multifactorial Hypoalbuminemia with mild to moderate protein calorie malnutrition Gait dysfunction history of deep vein thrombosis history of gastro-intestinal bleed History of breast cancer history of squamous cell cancer and melanoma History of lung cancer History of Clostridium difficile colitis History of portal vein thrombosis History of nonalcoholic cirrhosis Factor 5 Leiden deficiency History of appendectomy History of breast surgery History of depression Full code Recommendations and discussion: In this 68-year-old female who is presented with multiple medical issues, we recommend to continue current medications, management, and symptomatic treatment. Creatinine continues to improve. Nephrology is following closely. Continue with IV antibiotics per infectious disease recommendations as patient received a PICC yesterday for continued IV antibiotic therapy. Infectious disease is arranging for long-term IV antibiotics. Continue to follow closely with multiple medical consultations. Will repeat am labs. Further recommendations to follow. Case management and community mental health social worker following as patient will likely go to [facility] upon discharge. Guarded prognosis. Possible discharge in 24-48 hours. Time with Patient: Greater than 30
--- NOTE | 2018-12-22 00:03 | P.PN ---
Subjective Progress Note Date: 12/21/18 Principal diagnosis: Acute urinary tract infection complicated Acute on chronic kidney disease Hyperkalemia This is a 68-year-old woman who was recently admitted for drug-resistant UTI and also had acute on chronic renal insufficiency and is being closely monitored. Nephrology and urology are following the patient. Today patient was going down with Dr. Noble and undergoing double-J tube catheter replacement. Patient was also to have a PICC line placed for continued IV antibiotic therapy. Infectious disease is following closely and arranging for IV antibiotics upon discharge. Patient will be going to [facility]. Patient's hemoglobin today was 7.4 and is being closely monitored. Per nursing staff patient is asymptomatic and hemodynamically stable. Will continue to monitor closely. 12/18/2018 Patient is sitting up in the chair in no acute distress. Patient underwent double J catheter replacement with Dr. Contreras yesterday and denies any acute overnight issues. Patient is being followed by nephrology. Current creatinine today is 4.77 which is slightly higher than previous. Will await repeat am labs to see the trend. Patient is receiving a PICC line today as she states they were unable to find a vein yesterday. Patient is having some bilateral lower extremity swelling that she states has worsened since yesterday. A one time dose of lasix was ordered by nephrology. Patient denies any chest pain or palpitations. Patient states she does have some shortness of breath with exertion. Patient denies any nausea or vomiting and is tolerating diet. Patient will be going to [facility] once stabilized. Will continue to monitor closely. 12/19/2018 Patient is sitting up in no acute distress with bilateral legs elevated for continued lower extremity edema. Edema to the feet have improved and SCDs are noted. Patient was given a one-time dose of oral Lasix per nephrology and states that it helped. Patient did receive a PICC line yesterday for long-term IV antibiotic therapy. Infectious disease is following closely. Patient's urine output has improved and looks more clear and is currently on IV antibiotics and will continue at this time. Patient continues to have abdominal and lower back pain. Patient does have IV morphine ordered as needed and will c ontinue to monitor closely. Discussed with the patient at length about concerned with her low blood pressure and current kidney conditions the pain medications should be taken cautiously. Patient verbalizes understanding of this treatment plan. Nephrology is following. Patient's creatinine continues to rise and is 4.90 which is up from 4.77 yesterday. Will continue to monitor closely. Patient continues to work with PT/OT for strength and mobility. Patient denies any chest pain or palpitations at this time. Patient is afebrile. Patient denies any nausea or vomiting but is having some abdominal discomfort. Patient states that she is passing gas and having bowel movements. Patient denies noticing any blood in the stool and monitoring hemoglobin closely as her hemoglobin today is 7.1. 12 20 2018 Patient is status post cystoscopy with bilateral ureteral stent exchange on 12/17/2018 Patient is currently sitting in a chair comfortably. Complains of abdominal pain. Otherwise urine is clear. Patient is still dehydrated with sodium level 147 dose from 149 today. Potassium level is 5.9. Creatinine 4.68 with slight improvement. Patient does have chronic kidney disease stage IV with baseline creatinine around 2.5. No complaints of nausea vomiting or diarrhea. No fever no chills. Patient is being continued on gentle hydration with D5 water at 70 mL per hour. Currently on antibiotics in the form of Invanz for enterococcus urinary tract infection. Next and pulmonary and ID is on board. 12/21/2018 Patient denied any complaints of chest pain or shortness of breath. Still complains of abdominal pain. No fever no chills. Tolerating oral diet. No nausea vomiting and diarrhea. Patient does have urine output. Renal function improved with creatinine 4.46 today. Sodium level improved to 146 and potassium level came down to 4.3. Patient does complain of dizziness wi th eating up otherwise. No headache. No chest pain. Also complaints of bilateral leg swelling which has been chronic. Continued on IV hydration and antibiotics. ID and nephrology is following. Possible PICC line placement and long-term antibiotics and rehab transfer possibly next 24 hours. Active Medications Acetaminophen (Tylenol Tab) 650 mg PO Q6HR PRN PRN Reason: Fever and/ or Pain Last Admin: 12/21/18 20:38 Dose: 650 mg Documented by: Aspirin (Aspirin) 325 mg PO DAILY REPLACED BY [facility] Last Admin: 12/21/18 07:42 Dose: 325 mg Documented by: Darbepoetin Mike (Aranesp) 40 mcg SQ Q7D REPLACED BY [facility] Last Admin: 12/15/18 12:09 Dose: 40 mcg Documented by: Escitalopram Oxalate (Lexapro) 20 mg PO DAILY REPLACED BY [facility] Last Admin: 12/21/18 07:42 Dose: 20 mg Documented by: Ertapenem 0.5 gm/ Sodium (Chloride) 50 mls @ 100 mls/hr IVPB DAILY REPLACED BY [facility]; Protocol Last Admin: 12/21/18 08:19 Dose: 100 mls/hr Documented by: Dextrose/Water (Dextrose 5%-Water Iv Soln) 1,000 mls @ 70 mls/hr IV .[id number] REPLACED BY [facility] Last Admin: 12/21/18 22:35 Dose: 70 mls/hr Documented by: Levothyroxine Sodium (Synthroid) 50 mcg PO DAILY@0600 REPLACED BY [facility] Last Admin: 12/21/18 05:24 Dose: 50 mcg Documented by: Midodrine (Proamatine) 5 mg PO AC-TID REPLACED BY [facility] Last Admin: 12/21/18 17:12 Dose: 5 mg Documented by: Nitroglycerin (Nitrostat) 0.4 mg SUBLINGUAL Q5M PRN PRN Reason: Chest Pain Pantoprazole Sodium (Protonix) 40 mg PO AC-BRKFST REPLACED BY [facility] Last Admin: 12/21/18 07:42 Dose: 40 mg Documented by: Sodium Bicarbonate (Sodium Bicarbonate Tab) 650 mg PO BID REPLACED BY [facility] Last Admin: 12/21/18 20:38 Dose: 650 mg Documented by: Objective - Vital Signs Vital signs: Vital Signs Temp 98.4 F 12/21/18 19:59 Pulse 88 12/21/18 19:59 Resp 17 12/21/18 19:59 BP 99/62 12/21/18 19:59 Pulse Ox 95 12/21/18 19:59 Intake & Output 12/21/18 12/21/18 12/22/18 06:59 18:59 06:59 Intake Total 1023 Output Total 300 450 675 Balance -300 573 -675 Intake: Oral 1023 Output: Urine 300 450 675 Other: Voiding Method Indwelling Catheter Indwelling Catheter Indwelling Catheter - Exam Gen: This is a 68-year-old female lying in bed in no acute distress. Vital signs are stable. HEENT: Head is atraumatic, normocephalic. Pupils equal, round. Sclerae is anicteric. NECK: Supple. No JVD. No lymphadenopathy. No thyromegaly. LUNGS: Diminished breath sounds at the bases with a few scattered rhonchi noted. No wheezing noted on exam No intercostal retractions. HEART: Regular rhythm. S1 and S2 are muffled. No murmur. ABDOMEN: Soft. Bowel sounds are present. No masses. Mild tenderness upon palpation. EXTREMITIES: mild bilateral lower extremity swelling and edema 2+ pitting. Pedal edema has slightly improved NEUROLOGICAL: Patient is awake, alert and oriented x3. Cranial nerves 2 through 12 are grossly intact. Diffuse weakness - Labs CBC & Chem 7: 12/20/18 06:53 12/21/18 07:00 Labs: Abnormal Lab Results - Last 24 Hours (Table) 12/21/18 Range/Units 07:00 Sodium 146 H (137-145) mmol/L Chloride 116 H (98-107) mmol/L BUN 58 H (7-17) mg/dL Creatinine 4.46 H (0.52-1.04) mg/dL Calcium 7.5 L (8.4-10.2) mg/dL Magnesium 1.3 L (1.6-2.3) mg/dL Assessment and Plan Assessment: Acute complicated urinary tract infection, drug-resistant, with enterococcus faecalis as well as Morganella morganii, with possible sepsis. Currently on Invanz. Acute on chronic renal failure with acute tubular necrosis, prerenal renal failure Hyperkalemia improved. Hyponatremia Bilateral ureteral stents replaced by Dr. Contreras Anemia, symptomatic, multifactorial Hypoalbuminemia with mild to moderate protein calorie malnutrition Gait dysfunction history of deep vein thrombosis history of gastro-intestinal bleed History of breast cancer history of squamous cell cancer and melanoma History of lung cancer History of Clostridium difficile colitis History of portal vein thrombosis History of nonalcoholic cirrhosis Factor 5 Leiden deficiency History of appendectomy History of breast surgery History of depression Full code Recommendations and discussion: In this 68-year-old female who is presented with multiple medical issues, we recommend to continue current medications, management, and symptomatic treatment. Creatinine continues to improve. Nephrology is following closely. Continue with IV antibiotics per infectious disease recommendations as patient received a PICC yesterday for continued IV antibiotic therapy. Infectious disease is arranging for long-term IV antibiotics. Continue to follow closely with multiple medical consultations. Will repeat am labs. Further recommendations to follow. Case management and older adult social work specialist following as patient will likely go to [facility] upon discharge. Guarded prognosis. Possible discharge in 24-48 hours. Time with Patient: Greater than 30
[2018-12-22] MEDS: LEVOTHYROXINE 50 MCG TAB PO SCH (05:33)
[2018-12-22] MEDS: ACETAMINOPHEN TAB 325 MG TAB PO PRN ×2 (05:33→18:13)
[2018-12-22 06:46] LABS: Anisocytosis Moderate; Hypochromasia Marked; MCH 27.4 pg (25.0-35.0); MCHC 30.2 g/dL (31.0-37.0); MCV 90.7 fL (80.0-100.0); Macrocytosis Slight; Mean Platelet Volume 6.9; Platelet Count 265 k/uL (150-450); RBC 2.32 m/uL (3.80-5.40); RDW 21.3 % (11.5-15.5); WBC 3.3 k/uL (3.8-10.6)
[2018-12-22 07:00] LABS: Calcium 7.2 mg/dL (8.4-10.2); Potassium 3.9 mmol/L (3.5-5.1)
[2018-12-22 07:12] LABS: HGB 6.3 gm/dL (11.4-16.0)
[2018-12-22 07:43] LABS: Anisocytosis Moderate; Basophils # (A) 0.1 k/uL (0-0.2); Basophils % (A) 1 %; Eosinophils # (A) 0.2 k/uL (0-0.7); Eosinophils % (A) 6 %; HCT 24.3 % (34.0-46.0); HGB 7.2 gm/dL (11.4-16.0); Hypochromasia Marked; Lymphocytes # (A) 1.1 k/uL (1.0-4.8); Lymphocytes % (A) 27 %; MCHC 29.5 g/dL (31.0-37.0); MCV 88.3 fL (80.0-100.0); Mean Platelet Volume 6.2; Monocytes # (A) 0.2 k/uL (0-1.0); Monocytes % (A) 6 %; Neutrophils # (A) 2.2 k/uL (1.3-7.7); Neutrophils % (A) 57 %; Platelet Count 323 k/uL (150-450); RBC 2.75 m/uL (3.80-5.40); RDW 20.6 % (11.5-15.5)
[2018-12-22 07:53] LABS: Albumin 2.1 g/dL (3.5-5.0); Calcium 7.7 mg/dL (8.4-10.2); Potassium 4.1 mmol/L (3.5-5.1); Total Bilirubin 0.3 mg/dL (0.2-1.3); Total Protein 5.7 g/dL (6.3-8.2)
[2018-12-22] MEDS: MIDODRINE 5 MG TAB PO SCH ×3 (08:21→18:13)
[2018-12-22] MEDS: ESCITALOPRAM 20 MG TAB PO SCH (08:21)
[2018-12-22] MEDS: PANTOPRAZOLE 40 MG TABLET PO SCH (08:21)
[2018-12-22] MEDS: SODIUM BICARBONATE TAB 650 MG TAB PO SCH ×2 (08:21→20:09)
[2018-12-22] MEDS: ASPIRIN 325 MG TAB PO SCH (08:21)
[2018-12-22 08:29] LABS: Band Neutrophils % 1 %; Basophils # (M) 0.03 k/uL (0-0.2); Eosinophils # (M) 0.17 k/uL (0-0.7); Lymphocytes # (M) 0.86 k/uL (1.0-4.8); Monocytes # (M) 0.07 k/uL (0-1.0); Neutrophils % (M) 65 %; Nucleated Red Blood Cells 0 /100 WBC (0-0); Total Cells Counted 100
[2018-12-22 08:31] LABS: Target Cells Present
[2018-12-22] MEDS: ERTAPENEM 0.5 GM in SODIUM CHLORIDE 0.9% 50 ML IVPB SCH (11:17)
[2018-12-22] MEDS: DARBEPOETIN ALFA 40 MCG/0.4 ML SYRINGE SQ SCH (12:20)
--- NOTE | 2018-12-22 13:58 | PN ---
PROGRESS NOTE Patient is seen for followup for acute kidney injury on top of chronic kidney disease. She has underlying obstructive uropathy. Patient's serum creatinine had peaked at 4.9, it is currently trending down. It is down to about 4.0. Patient was maintained on D5W for hypernatremia. She states that she does not have much of an appetite and is complaining of increased lower extremity edema. The patient has an indwelling King catheter with fair urine output. She had bilateral ureteral stent exchange on December 17. She is treated for severe urinary tract infection on this admission with IV antibiotics. Baseline creatinine about 2.5-2.7 mg/dL. I have discussed with her regarding need for possible renal replacement therapy if renal function does not improve significantly. I have also told her at this time she does not need dialysis, but this may be coming close in the near future. PHYSICAL EXAMINATION: On examination today, blood pressure was 100/54, heart rate 78 per minute. She is afebrile. Examination of the heart S1, S2. Examination of the lungs, bilateral breath sounds are heard. Abdomen is soft, non-tender. Examination of the lower extremities shows edema 2+ bilaterally, INTERPRETER exam grossly intact. LABS: Show hemoglobin 7.2, sodium 142, potassium 4.1, chloride 113, BUN 57, creatinine 4.05. ASSESSMENT: 1. Acute kidney injury, mainly obstructive uropathy, slowly improving. 2. Hypernatremia, improved. I will discontinue the D5W. 3. Chronic kidney disease stage IV. Baseline creatinine about 2.5, mainly obstructive uropathy. Patient has an atrophic left kidney. 4. Urinary tract infection, status post antibiotics. 5. Chronic hypotension, maintained on midodrine. 6. Bilateral lower extremity edema associated with immobility, poor oral intake as well as renal failure, status post IV Lasix yesterday. I will repeat another dose of Lasix tomorrow. 7. Anemia, no active bleeding noted. Patient is maintained on Aranesp. 8. Metabolic acidosis maintained on oral sodium bicarb. PLAN: DC D5W, Continue with Aranesp. Repeat labs in a.m. I discussed with the patient regarding renal replacement therapy down the road. He does not need dialysis right at this time. MMODL / IJN: [id number] /
--- NOTE | 2018-12-22 15:46 | P.PN ---
Subjective Progress Note Date: 12/22/18 This is a 68-year-old female admitted with acute UTI, SVT in a patient with history of lung CA and multiple other medical issues. Reports bilateral lower quadrant pain that radiates into the bilateral flanks. Reports significant nausea ,vomiting with significant weight loss over the last month from 210 pounds down to 136 pounds. Today able to tolerate diet intake with no nausea or vomiting. Reports shortness of breath with exertion. Reports bowel odor to urine. Patient converted from SVT during placement of IJ. Echo pending. CT of abdomen and pelvis suggestive of ileus, no free air, possible anasarca, bilateral hydronephrosis, kidneys unchanged, possible cystitis, minimal free fluid in the abdomen, hepatic cirrhosis. Afebrile. Hemoglobin 7.3, albumin 2.3, creatinine 2.55. Alk phos down to 142. Positive UA, culture pending. 12/22/2018 patient is status post cystoscopy with exchange of bilateral ureteral stents on 12/17/2018 .complains of dizziness, increased weakness .significant edema ,waist, bilateral flank areas and legs.Creatinine 4.5, hemoglobin increased to 7.2. Maintained on D5W at 70 as per nephrology. Intermittent nausea, no vomiting, no diarrhea. Maintained on IV antibiotics of Invanz per picc as per ID. IV fluids of D5W at 70 as per nephrology. Objective - Vital Signs Vital signs: Vital Signs Temp 98.2 F 12/22/18 07:00 Pulse 78 12/22/18 07:00 Resp 16 12/22/18 07:00 BP 100/54 12/22/18 07:00 Pulse Ox 93 L 12/22/18 07:00 Intake & Output 12/21/18 12/22/18 12/22/18 18:59 06:59 18:59 Intake Total 1023 Output Total 450 1700 Balance 573 -1700 Intake: Oral 1023 Output: Urine 450 1700 Uretheral (King) 875 Other: Voiding Method Indwelling Catheter Indwelling Catheter Indwelling Catheter - Exam PHYSICAL EXAM: VITAL SIGNS: As above GENERAL: Sitting up in chair, fatigued, HEENT: Conjunctivae normal. eyes normal. Oral mucosa moist NECK: No JVD. No thyroid enlargement. No LNs CARDIOVASCULAR: S1, S2 regular.. No murmur RESPIRATION: Breath sounds diminished in the bases. No rhonchi or crackles. Fine expiratory wheezing ABDOMEN: Soft, distended, abdominal edema with mild diffuse tenderness. No guarding. no masses palpable.Bowel sounds heard. LEGS: Positive edema entire legs, up into abdomen and bilateral flanks PSYCHIATRY: Alert and oriented X3, mood and affect normal. NERVOUS SYSTEM: Cranial N 2-12 grossly normal. Moves all 4 limbs. Diffuse weakness ,No focal deficits. Microbiology 12/16/18 15:20 Urine,Catheterized Urine Culture - Final 12/08/18 22:20 Urine,Voided Urine Culture - Final Enterococcus faecalis Morganella morganii 12/03/18 18:52 Urine,Voided Urine Culture - Final Morganella morganii - Labs CBC & Chem 7: 12/22/18 07:26 12/22/18 07:26 Labs: Abnormal Lab Results - Last 24 Hours (Table) 12/22/18 12/22/18 12/22/18 Range/Units 06:30 06:30 07:26 WBC 3.3 L (3.8-10.6) k/uL RBC 2.32 L 2.75 L (3.80-5.40) m/uL Hgb 6.3 L* D 7.2 L (11.4-16.0) gm/dL Hct 21.0 L 24.3 L (34.0-46.0) % MCHC 30.2 L 29.5 L (31.0-37.0) g/dL RDW 21.3 H 20.6 H (11.5-15.5) % Lymphocytes # (Manual) 0.86 L (1.0-4.8) k/uL Chloride 113 H (98-107) mmol/L Carbon Dioxide 21 L (22-30) mmol/L BUN 52 H (7-17) mg/dL Creatinine 3.91 H (0.52-1.04) mg/dL Calcium 7.2 L (8.4-10.2) mg/dL Alkaline Phosphatase (38-126) U/L Total Protein (6.3-8.2) g/dL Albumin (3.5-5.0) g/dL 12/22/18 Range/Units 07:26 WBC (3.8-10.6) k/uL RBC (3.80-5.40) m/uL Hgb (11.4-16.0) gm/dL Hct (34.0-46.0) % MCHC (31.0-37.0) g/dL RDW (11.5-15.5) % Lymphocytes # (Manual) (1.0-4.8) k/uL Chloride 113 H (98-107) mmol/L Carbon Dioxide 21 L (22-30) mmol/L BUN 57 H (7-17) mg/dL Creatinine 4.05 H (0.52-1.04) mg/dL Calcium 7.7 L (8.4-10.2) mg/dL Alkaline Phosphatase 168 H (38-126) U/L Total Protein 5.7 L (6.3-8.2) g/dL Albumin 2.1 L (3.5-5.0) g/dL Assessment and Plan Assessment: Acute complicated urinary tract infection, drug-resistant, with enterococcus faecalis as well as Morganella morganii, with possible sepsis. Currently on Invanz. Acute on chronic renal failure with acute tubular necrosis, secondary to obstructive uropathy, chronic,stage IV. -Chronic hypotension maintained on midodrin. -Metabolic acidosis secondary to acute renal failure, maintained on oral sodium bicarb -SVT -Hypomagnesemia -Elevated troponin possibly related to tachycardia as per cardiology Hypernatremia, improved Bilateral hydronephrosis, bilateral ureteral stents replaced by Dr. Contreras, 11/2018 History of interstitial nephritis History of UTI with Enterobacter cloacae Acute on chronic Anemia, symptomatic, multifactorial including renal failure, iron deficiency Hypoalbuminemia with mild to moderate protein calorie malnutrition, BMI 22 Gait dysfunction history of deep vein thrombosis Chronic neuropathy Bibibasilar atelectasis history of gastro-intestinal bleed History of breast cancer history of squamous cell cancer and melanoma History of lung cancer History of Clostridium difficile colitis History of portal vein thrombosis History of nonalcoholic cirrhosis Factor 5 Leiden deficiency History of appendectomy History of breast surgery History of depression T10 compression fracture unchanged Status post PICC line placement Full code - Plan: Continue current medication regime, monitoring and symptomatically treatment. Maintain IV antibiotics as per ID.Close monitoring of renal function, electrolytes with repeat labs ordered for a.m. Aggressive pulmonary toileting with incentive spirometer ordered. Follow closely with multiple consults. Prognosis guarded given multiple complex medical issues. PT/OT. Subacute rehab at discharge.Further recommendations to follow. The impression and plan of care has been dictated as directed. : I performed a history and examination of this patient, discussed the same with the dictator. I agree with the dictator's note ,documented as a scribe. Any additional findings or plans will be noted.
--- NOTE | 2018-12-22 16:10 | PN ---
PROGRESS NOTE DATE OF SERVICE: 12/22/2018. REASON FOR FOLLOWUP: Complicated urinary tract infection. INTERVAL HISTORY: The patient is currently afebrile. Patient has been breathing comfortably. Still feeling weak and tired and dizzy. No chest pain. No cough. No abdominal pain. No diarrhea. PHYSICAL EXAMINATION: Blood pressure is 100/54 with a pulse of 73, temperature 98.2. She is 93% on room air. General description is an elderly female up in the bed in no distress. Respiratory system: Unlabored breathing. Clear to auscultation anteriorly. Heart S1, S2. Regular rate and rhythm. Abdomen soft. No tenderness. LABS: Hemoglobin 7.1, white count 4.0, creatinine 4.05. DIAGNOSTIC IMPRESSION AND PLAN: Patient with a complicated urinary tract infection, now with evidence of renal failure clinically, being followed by Nephrology and Urology services. has been changed currently. Invanz to continue for another 10 days for finish course of therapy. Continue supportive care. MMODL / IJN: [id number] /
[2018-12-23] MEDS: ACETAMINOPHEN TAB 325 MG TAB PO PRN ×3 (03:36→20:39)
[2018-12-23] MEDS: LEVOTHYROXINE 50 MCG TAB PO SCH (05:28)
[2018-12-23] MEDS: PANTOPRAZOLE 40 MG TABLET PO SCH (07:36)
[2018-12-23] MEDS: ESCITALOPRAM 20 MG TAB PO SCH (07:36)
[2018-12-23] MEDS: SODIUM BICARBONATE TAB 650 MG TAB PO SCH ×2 (07:37→20:39)
[2018-12-23] MEDS: MIDODRINE 5 MG TAB PO SCH ×3 (07:37→17:19)
[2018-12-23] MEDS: ASPIRIN 325 MG TAB PO SCH (07:37)
[2018-12-23] MEDS: ERTAPENEM 0.5 GM in SODIUM CHLORIDE 0.9% 50 ML IVPB SCH (07:38)
[2018-12-23 07:40] LABS: Anisocytosis Moderate; Basophils # (A) 0.1 k/uL (0-0.2); Basophils % (A) 1 %; Eosinophils # (A) 0.2 k/uL (0-0.7); Eosinophils % (A) 6 %; HCT 27.3 % (34.0-46.0); HGB 7.9 gm/dL (11.4-16.0); Hypochromasia Marked; Lymphocytes % (A) 23 %; MCH 26.5 pg (25.0-35.0); MCV 91.5 fL (80.0-100.0); Macrocytosis Slight; Mean Platelet Volume 6.1; Monocytes # (A) 0.3 k/uL (0-1.0); Monocytes % (A) 6 %; Neutrophils # (A) 2.7 k/uL (1.3-7.7); Neutrophils % (A) 62 %; Platelet Count 290 k/uL (150-450); RBC 2.98 m/uL (3.80-5.40); RDW 20.3 % (11.5-15.5); WBC 4.3 k/uL (3.8-10.6)
[2018-12-23 07:50] LABS: Calcium 7.8 mg/dL (8.4-10.2); Magnesium 1.8 mg/dL (1.6-2.3); Potassium 4.8 mmol/L (3.5-5.1)
[2018-12-23] MEDS ORDERED: FUROSEMIDE 10 MG/ML 4 ML VIAL IV STA (14:33)
--- NOTE | 2018-12-23 16:25 | PN ---
PROGRESS NOTE Patient is seen for followup for acute kidney injury on top of chronic kidney disease. She is currently sitting up in bed. Patient denies any significant complaints. Her renal function continues to improve slowly. PHYSICAL EXAMINATION: Blood pressure is 109/65, heart rate 102 per minute. She is afebrile. Examination of the heart S1, S2. Examination of the lungs, bilateral breath sounds are heard. ABDOMEN: Soft, nontender. Examination of lower extremities shows edema 2+ bilaterally. MILL MACHINIST exam is grossly intact. LAB: Show sodium 142, potassium 4.8, chloride 114, CO2 21, BUN 56, creatinine 3.92. ASSESSMENT: 1. Acute kidney injury mainly obstructive uropathy status post bilateral ureteral stent exchange with some improvement in renal function. 2. Lower extremity edema with mild volume overload. I will give 1 dose of IV Lasix today. 3. Anemia no active bleeding noted. The patient is maintained on Aranesp. She is status post IV fluids as well. 4. Metabolic acidosis. Maintained on oral sodium bicarb. 5. Hypothyroidism. 6. Chronic kidney disease, stage IV, secondary to obstructive uropathy with asymmetric kidneys and atrophic left kidney. 7. Urinary tract infection with urine culture growing Enterococcus faecalis and Morganella morganii, maintained on antibiotics. PLAN: IV Lasix x1 today. We can likely resume oral Lasix starting tomorrow. Continue with indwelling King catheter for now. Follow up as outpatient with Urology and Nephrology and encourage increased oral intake. MMODL / IJN: [id number] /
--- NOTE | 2018-12-23 18:00 | P.PN ---
Subjective Progress Note Date: 12/23/18 This is a 68-year-old female admitted with acute UTI, SVT in a patient with history of lung CA and multiple other medical issues. Reports bilateral lower quadrant pain that radiates into the bilateral flanks. Reports significant nausea ,vomiting with significant weight loss over the last month from 210 pounds down to 136 pounds. Today able to tolerate diet intake with no nausea or vomiting. Reports shortness of breath with exertion. Reports bowel odor to urine. Patient converted from SVT during placement of IJ. Echo pending. CT of abdomen and pelvis suggestive of ileus, no free air, possible anasarca, bilateral hydronephrosis, kidneys unchanged, possible cystitis, minimal free fluid in the abdomen, hepatic cirrhosis. Afebrile. Hemoglobin 7.3, albumin 2.3, creatinine 2.55. Alk phos down to 142. Positive UA, culture pending. 12/22/2018 patient is status post cystoscopy with exchange of bilateral ureteral stents on 12/17/2018 .complains of dizziness, increased weakness .significant edema ,waist, bilateral flank areas and legs.Creatinine 4.5, hemoglobin increased to 7.2. Maintained on D5W at 70 as per nephrology. Intermittent nausea, no vomiting, no diarrhea. Maintained on IV antibiotics of Invanz per picc as per ID. IV fluids of D5W at 70 as per nephrology. 12/23/2018 oxygen requirements worsening, now requiring 2 L nasal cannula to maintain O2 sats in the 90s.renal function continues to slowly improving, 3.92, sodium normalized 142. Received 1 dose of Lasix IV push today with oral Lasix ordered to start tomorrow as per nephrology. Maintained on Invanz as per infectious disease. Complains of multiple episodes of diarrhea today. Objective - Vital Signs Vital signs: Vital Signs Temp 98.6 F 12/23/18 07:00 Pulse 102 H 12/23/18 07:00 Resp 16 12/23/18 07:35 BP 109/65 12/23/18 07:00 Pulse Ox 92 L 12/23/18 07:00 Intake & Output 12/22/18 12/23/18 12/23/18 18:59 06:59 18:59 Intake Total 536 Output Total 800 Balance 536 -800 Weight 67.7 kg Intake: Oral 536 Output: Urine 800 Other: Voiding Method Indwelling Catheter Indwelling Catheter Indwelling Catheter # Bowel Movements 1 1 1 - Exam PHYSICAL EXAM: VITAL SIGNS: As above GENERAL: Sitting up in chair, no acute distress HEENT: Conjunctivae normal. eyes normal. Oral mucosa moist NECK: No JVD. No thyroid enlargement. No LNs CARDIOVASCULAR: S1, S2 regular.. No murmur RESPIRATION: Breath sounds diminished in the bases. No rhonchi or crackles. No wheezing ABDOMEN: Soft, distended, abdominal edema with mild diffuse tenderness. No guarding. no masses palpable.Bowel sounds heard. LEGS: Positive edema of legs, up into abdomen and bilateral flanks PSYCHIATRY: Alert and oriented X3, mood and affect normal. NERVOUS SYSTEM: Cranial N 2-12 grossly normal. Moves all 4 limbs. Diffuse weakness ,No focal deficits. Microbiology 12/16/18 15:20 Urine,Catheterized Urine Culture - Final 12/08/18 22:20 Urine,Voided Urine Culture - Final Enterococcus faecalis Morganella morganii 12/03/18 18:52 Urine,Voided Urine Culture - Final Morganella morganii - Labs CBC & Chem 7: 12/23/18 06:49 12/23/18 06:49 Labs: Abnormal Lab Results - Last 24 Hours (Table) 12/23/18 12/23/18 Range/Units 06:49 06:49 RBC 2.98 L (3.80-5.40) m/uL Hgb 7.9 L (11.4-16.0) gm/dL Hct 27.3 L (34.0-46.0) % MCHC 29.0 L (31.0-37.0) g/dL RDW 20.3 H (11.5-15.5) % Chloride 114 H (98-107) mmol/L Carbon Dioxide 21 L (22-30) mmol/L BUN 56 H (7-17) mg/dL Creatinine 3.92 H (0.52-1.04) mg/dL Calcium 7.8 L (8.4-10.2) mg/dL Assessment and Plan Assessment: Acute complicated urinary tract infection, drug-resistant, with enterococcus faecalis as well as Morganella morganii, with possible sepsis. Currently on Invanz. Acute on chronic renal failure with acute tubular necrosis, secondary to obstructive uropathy, chronic,stage IV. -Chronic hypotension maintained on midodrin. -Metabolic acidosis secondary to acute renal failure, maintained on oral sodium bicarb -SVT -Hypomagnesemia -Elevated troponin possibly related to tachycardia as per cardiology Hypernatremia, improved Bilateral hydronephrosis, bilateral ureteral stents replaced by Dr. Contreras, 12/17/2018 History of interstitial nephritis History of UTI with Enterobacter cloacae Acute on chronic Anemia, symptomatic, multifactorial including renal failure, iron deficiency Hypoalbuminemia with mild to moderate protein calorie malnutrition, BMI 22 Gait dysfunction history of deep vein thrombosis Chronic neuropathy Bibibasilar atelectasis history of gastro-intestinal bleed History of breast cancer history of squamous cell cancer and melanoma History of lung cancer History of Clostridium difficile colitis History of portal vein thrombosis History of nonalcoholic cirrhosis Factor 5 Leiden deficiency History of appendectomy History of breast surgery History of depression T10 compression fracture unchanged Status post PICC line placement Full code - Plan: Continue current medication regime, monitoring and symptomatically treatment. C. difficile culture ordered. Continue IV antibiotics of Invanz as per ID. diuretics as per nephrology- oral Lasix ordered to start tomorrow. Close monitoring of renal function, electrolytes with repeat labs ordered for a.m. Maintain aggressive pulmonary toileting with incentive spirometer ordered. Follow closely with multiple consults. Prognosis guarded given multiple complex medical issues. PT/OT. Patient is agreeable to Subacute rehab at discharge.Discharge planning in progress possibly from the latter part of this week. The impression and plan of care has been dictated as directed. : I performed a history and examination of this patient, discussed the same with the dictator. I agree with the dictator's note ,documented as a scribe. Any additional findings or plans will be noted.
--- NOTE | 2018-12-23 19:17 | PN ---
PROGRESS NOTE DATE OF SERVICE: 12/23/2018. REASON FOR FOLLOWUP: Complicated urinary tract infection. INTERVAL HISTORY: The patient is currently afebrile. Patient has been breathing comfortably. She has been feeling dizzy, but not as bad as yesterday. No chest pain. No cough. Minimal abdominal pain. No diarrhea. PHYSICAL EXAMINATION: Blood pressure 126/78 with a pulse of 89. Temperature 97.9. She is 95% on 2 L nasal cannula. General description is an elderly female up in the chair in no distress. Respiratory system: Unlabored breathing. Clear to auscultation anteriorly. Heart S1, S2. Regular rate and rhythm. Abdomen soft. No tenderness. LABS: Hemoglobin 7.8, white count 4.3, creatinine 3.92. DIAGNOSTIC IMPRESSION AND PLAN: Patient with complicated urinary tract infection in this patient with multiple allergies. The patient is currently covered with Invanz; to continue for another week to finish course of therapy. Monitor clinical course closely. Continue supportive care. MMODL / YURIN: [id number] /
--- NOTE | 2018-12-23 22:10 | XR ---
EXAMINATION: XR chest 1V portable DATE AND TIME: 12/23/2018 6:11 PM CLINICAL INDICATION: PHH; hypoxia TECHNIQUE: AP portable upright COMPARISON: 12/16/2018 FINDINGS: Right upper extremity PICC line tip superimposed over the proximal SVC. There is no pneumot horax. There is a relatively small right pleural effusion with partial right lung base airlessness. On the left, there is a smaller pleural effusion and the left lung base airlessness is less than the right. Cardiomediastinal silhouette and bones and soft tissues are unremarkable. IMPRESSION: Bilateral pleural effusions and bibasilar airlessness, greater on the right.
[2018-12-24] MEDS ORDERED: LEVOTHYROXINE 50 MCG TAB ONE (05:10)
[2018-12-24] MEDS ORDERED: ACETAMINOPHEN TAB 325 MG TAB ONE (05:10)
[2018-12-24 08:22] LABS: Calcium 7.9 mg/dL (8.4-10.2); Potassium 4.4 mmol/L (3.5-5.1)
[2018-12-24] MEDS: ERTAPENEM 0.5 GM in SODIUM CHLORIDE 0.9% 50 ML IVPB SCH (08:27)
[2018-12-24] MEDS: ESCITALOPRAM 20 MG TAB PO SCH (08:27)
[2018-12-24] MEDS: SODIUM BICARBONATE TAB 650 MG TAB PO SCH ×2 (08:27→20:05)
[2018-12-24] MEDS: ASPIRIN 325 MG TAB PO SCH (08:27)
[2018-12-24] MEDS: PANTOPRAZOLE 40 MG TABLET PO SCH (08:27)
[2018-12-24] MEDS: MIDODRINE 5 MG TAB PO SCH ×3 (08:27→16:42)
[2018-12-24 08:28] LABS: Anisocytosis Moderate; Basophils % (A) 1 %; Eosinophils # (A) 0.3 k/uL (0-0.7); Eosinophils % (A) 8 %; HCT 25.8 % (34.0-46.0); HGB 7.6 gm/dL (11.4-16.0); Hypochromasia Marked; Lymphocytes # (A) 0.8 k/uL (1.0-4.8); Lymphocytes % (A) 25 %; MCH 26.5 pg (25.0-35.0); MCHC 29.5 g/dL (31.0-37.0); MCV 90.1 fL (80.0-100.0); Macrocytosis Slight; Mean Platelet Volume 7.5; Monocytes # (A) 0.3 k/uL (0-1.0); Monocytes % (A) 8 %; Neutrophils # (A) 1.9 k/uL (1.3-7.7); Neutrophils % (A) 56 %; Platelet Count 270 k/uL (150-450); RBC 2.87 m/uL (3.80-5.40); RDW 21.1 % (11.5-15.5); WBC 3.4 k/uL (3.8-10.6)
[2018-12-24] MEDS: LEVOTHYROXINE 50 MCG TAB PO SCH (08:28)
[2018-12-24] MEDS: ACETAMINOPHEN TAB 325 MG TAB PO PRN ×2 (11:11→16:42)
[2018-12-24] MEDS ORDERED: FUROSEMIDE 10 MG/ML 4 ML VIAL IV STA (11:28)
--- NOTE | 2018-12-24 11:28 | P.PN ---
Subjective Patient is seen in follow-up for acute kidney injury on chronic kidney disease. Patient has chronic kidney disease stage IV with baseline creatinine near 2.5. Creatinine peaked at 4.9 this admission and is 3.87 today. She remains nonoliguric. She is awake and alert. Denies chest pain or shortness of breath. No vomiting or diarrhea. Patient underwent cystoscopy with bilateral ureteral stent exchange on December 17. Still complaining of edema in her extremities. Vital signs are stable. General: The patient appeared well nourished and normally developed. HEENT: Head exam is unremarkable. Neck is without jugular venous distension. LUNGS: Lungs are clear to auscultation and percussion. Breath sounds decreased. HEART: Rate and Rhythm are regular. First and second heart sounds normal. No murmurs, rubs or gallops. ABDOMEN: Abdominal exam reveals normal bowel sounds. Non-tender. EXTREMITITES: 1+ edema. Objective - Vital Signs Vital signs: Vital Signs Temp 98.4 F 12/24/18 07:32 Pulse 81 12/24/18 07:32 Resp 18 12/24/18 07:40 BP 101/54 12/24/18 07:32 Pulse Ox 94 L 12/24/18 07:32 Intake & Output 12/23/18 12/24/18 12/24/18 18:59 06:59 18:59 Intake Total 580 Output Total 1700 650 Balance -1700 -70 Intake: Oral 580 Output: Urine 1700 650 Other: Voiding Method Indwelling Catheter Indwelling Catheter Indwelling Catheter # Voids 1 # Bowel Movements 1 1 - Labs CBC & Chem 7: 12/24/18 06:24 12/24/18 06:24 Labs: Abnormal Lab Results - Last 24 Hours (Table) 12/24/18 12/24/18 Range/Units 06:24 06:24 WBC 3.4 L (3.8-10.6) k/uL RBC 2.87 L (3.80-5.40) m/uL Hgb 7.6 L (11.4-16.0) gm/dL Hct 25.8 L (34.0-46.0) % MCHC 29.5 L (31.0-37.0) g/dL RDW 21.1 H (11.5-15.5) % Lymphocytes # 0.8 L (1.0-4.8) k/uL Chloride 115 H (98-107) mmol/L BUN 53 H (7-17) mg/dL Creatinine 3.87 H (0.52-1.04) mg/dL Calcium 7.9 L (8.4-10.2) mg/dL Assessment and Plan Plan: Assessment: 1. Acute kidney injury secondary to obstructive uropathy. Creatinine peaked at 4.9 this admission and is 3.87 today. 2. Bilateral hydronephrosis status post exchange of ureteral stents this admission. Urology following. 3. Hypernatremia secondary to lack of oral water intake. Better. 4. Hyperkalemia secondary to acute kidney injury and metabolic acidosis. Improved with medical management. 5. Anemia of chronic kidney disease. Maintained on Aranesp. 6. UTI maintained on antibiotics. 7. Chronic kidney disease stage IV secondary to obstructive uropathy. Baseline creatinine near 2.5. 8. Chronic hypotension maintained on midodrine. 9. Metabolic acidosis due to acute kidney injury maintained on oral sodium bicarbonate. Better. 10. Hypomagnesemia from poor oral intake. Improved post replacement. Plan: Lasix 40 mg IV once today. Continue to monitor renal function and urine output. Repeat iron studies. No need for renal replacement therapy at this time.
[2018-12-24 18:53] LABS: Ferritin 511.2 ng/mL (10.0-291.0); Iron Saturation 12.65 (12.00-45.00)
--- NOTE | 2018-12-24 22:48 | PN ---
PROGRESS NOTE DATE OF SERVICE: 12/24/2018. REASON FOR FOLLOWUP VISIT: Complicated urinary tract infection. INTERVAL HISTORY: The patient is currently afebrile. The patient has been breathing comfortably, feeling slightly better today, but denies any chest pain. No cough. No nausea, vomiting. Did have episodes of diarrhea. Stool for C difficile came back negative. PHYSICAL EXAMINATION: Blood pressure 112/72 with a pulse of 95, temperature 98.1. She is 94% on room air. General description is an elderly female up in the chair in no distress. Respiratory system: Unlabored breathing. Clear to auscultation anteriorly. Heart S1, S2. Regular rate and rhythm. Abdomen soft. No tenderness. LABS: Hemoglobin 7.8, white count of 3.4 with a BUN of 33, creatinine 3.97. DIAGNOSTIC IMPRESSION AND PLAN: Patient with a complicated urinary tract infection in this patient who did have multiple antibiotic allergies. Currently covered with Invanz to continue for another week to finish a course of therapy. Monitor clinical course closely. MMODL / IJN: [id number] /
[2018-12-25] MEDS: ACETAMINOPHEN TAB 325 MG TAB PO PRN ×3 (05:17→20:38)
[2018-12-25] MEDS: LEVOTHYROXINE 50 MCG TAB PO SCH (05:17)
[2018-12-25 07:45] LABS: Anisocytosis Moderate; Basophils # (A) 0.1 k/uL (0-0.2); Basophils % (A) 1 %; Eosinophils # (A) 0.3 k/uL (0-0.7); Eosinophils % (A) 5 %; HCT 26.9 % (34.0-46.0); HGB 7.9 gm/dL (11.4-16.0); Hypochromasia Marked; Lymphocytes # (A) 0.8 k/uL (1.0-4.8); Lymphocytes % (A) 18 %; MCH 26.3 pg (25.0-35.0); MCHC 29.4 g/dL (31.0-37.0); MCV 89.2 fL (80.0-100.0); Mean Platelet Volume 6.3; Monocytes # (A) 0.3 k/uL (0-1.0); Monocytes % (A) 7 %; Neutrophils % (A) 65 %; Platelet Count 269 k/uL (150-450); RBC 3.01 m/uL (3.80-5.40); RDW 20.2 % (11.5-15.5); WBC 4.6 k/uL (3.8-10.6)
[2018-12-25 08:00] LABS: Albumin 2.5 g/dL (3.5-5.0); Calcium 8.3 mg/dL (8.4-10.2); Potassium 4.5 mmol/L (3.5-5.1); Total Bilirubin 0.3 mg/dL (0.2-1.3); Total Protein 6.5 g/dL (6.3-8.2)
[2018-12-25] MEDS: ESCITALOPRAM 20 MG TAB PO SCH (08:50)
[2018-12-25] MEDS: SODIUM BICARBONATE TAB 650 MG TAB PO SCH ×2 (08:50→20:39)
[2018-12-25] MEDS: PANTOPRAZOLE 40 MG TABLET PO SCH (08:50)
[2018-12-25] MEDS: ASPIRIN 325 MG TAB PO SCH (08:50)
[2018-12-25] MEDS: MIDODRINE 5 MG TAB PO SCH ×3 (08:50→16:55)
[2018-12-25] MEDS: ERTAPENEM 0.5 GM in SODIUM CHLORIDE 0.9% 50 ML IVPB SCH (08:50)
--- NOTE | 2018-12-25 15:00 | P.PN ---
Subjective Progress Note Date: 12/24/18 This is a 68-year-old female admitted with acute UTI, SVT in a patient with history of lung CA and multiple other medical issues. Reports bilateral lower quadrant pain that radiates into the bilateral flanks. Reports significant nausea ,vomiting with significant weight loss over the last month from 210 pounds down to 136 pounds. Today able to tolerate diet intake with no nausea or vomiting. Reports shortness of breath with exertion. Reports bowel odor to urine. Patient converted from SVT during placement of IJ. Echo pending. CT of abdomen and pelvis suggestive of ileus, no free air, possible anasarca, bilateral hydronephrosis, kidneys unchanged, possible cystitis, minimal free fluid in the abdomen, hepatic cirrhosis. Afebrile. Hemoglobin 7.3, albumin 2.3, creatinine 2.55. Alk phos down to 142. Positive UA, culture pending. 12/22/2018 patient is status post cystoscopy with exchange of bilateral ureteral stents on 12/17/2018 .complains of dizziness, increased weakness .significant edema ,waist, bilateral flank areas and legs.Creatinine 4.5, hemoglobin increased to 7.2. Maintained on D5W at 70 as per nephrology. Intermittent nausea, no vomiting, no diarrhea. Maintained on IV antibiotics of Invanz per picc as per ID. IV fluids of D5W at 70 as per nephrology. 12/23/2018 oxygen requirements worsening, now requiring 2 L nasal cannula to maintain O2 sats in the 90s.renal function continues to slowly improving, 3.92, sodium normalized 142. Received 1 dose of Lasix IV push today with oral Lasix ordered to start tomorrow as per nephrology. Maintained on Invanz as per infectious disease. Complains of multiple episodes of diarrhea today. 12/24/18 received another dose of Lasix 40 IV push today as per nephrology. One more week of Invanz to complete therapy as recommended per infectious disease. Creatinine down to 3.87. Diarrhea improving, negative for C. di fficile colitis. Afebrile, WBC 3.4. Chest x-ray last night reported bilateral small pleural effusions, greater on the right. Vital signs stable, maintaining O2 sats in the 90s on room air. Objective - Vital Signs Vital signs: Vital Signs Temp 98.4 F 12/24/18 07:32 Pulse 81 12/24/18 07:32 Resp 18 12/24/18 07:40 BP 101/54 12/24/18 07:32 Pulse Ox 94 L 12/24/18 07:32 Intake & Output 12/23/18 12/24/18 12/24/18 18:59 06:59 18:59 Intake Total 580 Output Total 1700 650 Balance -1700 -70 Intake: Oral 580 Output: Urine 1700 650 Other: Voiding Method Indwelling Catheter Indwelling Catheter Indwelling Catheter # Voids 1 # Bowel Movements 1 1 - Exam PHYSICAL EXAM: VITAL SIGNS: As above GENERAL: Sitting up in chair, no acute distress HEENT: Conjunctivae normal. eyes normal. Oral mucosa moist NECK: No JVD. No thyroid enlargement. No LNs CARDIOVASCULAR: S1, S2 regular.. No murmur RESPIRATION: Breath sounds diminished in the bases. No rhonchi or crackles. No wheezing ABDOMEN: Soft, distended, abdominal edema with mild diffuse tenderness. No guarding. no masses palpable.Bowel sounds heard. LEGS: Positive edema of legs, up into abdomen and bilateral flanks PSYCHIATRY: Alert and oriented X3, mood and affect normal. NERVOUS SYSTEM: Cranial N 2-12 grossly normal. Moves all 4 limbs. Diffuse weakness ,No focal deficits. Microbiology 12/16/18 15:20 Urine,Catheterized Urine Culture - Final 12/08/18 22:20 Urine,Voided Urine Culture - Final Enterococcus faecalis Morganella morganii 12/03/18 18:52 Urine,Voided Urine Culture - Final Morganella morganii - Labs CBC & Chem 7: 12/25/18 07:15 12/25/18 07:15 Labs: Abnormal Lab Results - Last 24 Hours (Table) 12/24/18 12/24/18 Range/Units 06:24 06:24 WBC 3.4 L (3.8-10.6) k/uL RBC 2.87 L (3.80-5.40) m/uL Hgb 7.6 L (11.4-16.0) gm/dL Hct 25.8 L (34.0-46.0) % MCHC 29.5 L (31.0-37.0) g/dL RDW 21.1 H (11.5-15.5) % Lymphocytes # 0.8 L (1.0-4.8) k/uL Chloride 115 H (98-107) mmol/L BUN 53 H (7-17) mg/dL Creatinine 3.87 H (0.52-1.04) mg/dL Calcium 7.9 L (8.4-10.2) mg/dL Assessment and Plan Assessment: Acute complicated urinary tract infection, drug-resistant, with enterococcus faecalis as well as Morganella morganii, with possible sepsis. Currently on Invanz. Acute on chronic renal failure with acute tubular necrosis, secondary to obstructive uropathy, chronic,stage IV. -Chronic hypotension maintained on midodrin. -Metabolic acidosis secondary to acute renal failure, maintained on oral sodium bicarb -SVT -Hypomagnesemia -Elevated troponin possibly related to tachycardia as per cardiology Hypernatremia, improved Bilateral hydronephrosis, bilateral ureteral stents replaced by Dr. Contreras, 12/17/2018 History of interstitial nephritis History of UTI with Enterobacter cloacae Acute on chronic Anemia, symptomatic, multifactorial including renal failure, iron deficiency Hypoalbuminemia with mild to moderate protein calorie malnutrition, BMI 22 Gait dysfunction history of deep vein thrombosis Chronic neuropathy Bibibasilar atelectasis history of gastro-intestinal bleed History of breast cancer history of squamous cell cancer and melanoma History of lung cancer History of Clostridium difficile colitis History of portal vein thrombosis History of nonalcoholic cirrhosis Factor 5 Leiden deficiency History of appendectomy History of breast surgery History of depression T10 compression fracture unchanged Status post PICC line placement Full code - Plan: Continue current medication regime, monitoring and symptomatically teja tment. Maintain IV antibiotics of Invanz as per ID. diuretics as per nephrology.Close monitoring of renal function, electrolytes with repeat labs ordered for a.m. Aggressive pulmonary toileting with incentive spirometer reinforced. PT/OT. Discharge planning in progress for subacute rehab. The impression and plan of care has been dictated as directed. : I performed a history and examination of this patient, discussed the same with the dictator. I agree with the dictator's note ,documented as a scribe. Any additional findings or plans will be noted.
--- NOTE | 2018-12-25 15:29 | P.PN ---
Subjective Progress Note Date: 12/25/18 This is a 68-year-old female admitted with acute UTI, SVT in a patient with history of lung CA and multiple other medical issues. Reports bilateral lower quadrant pain that radiates into the bilateral flanks. Reports significant nausea ,vomiting with significant weight loss over the last month from 210 pounds down to 136 pounds. Today able to tolerate diet intake with no nausea or vomiting. Reports shortness of breath with exertion. Reports bowel odor to urine. Patient converted from SVT during placement of IJ. Echo pending. CT of abdomen and pelvis suggestive of ileus, no free air, possible anasarca, bilateral hydronephrosis, kidneys unchanged, possible cystitis, minimal free fluid in the abdomen, hepatic cirrhosis. Afebrile. Hemoglobin 7.3, albumin 2.3, creatinine 2.55. Alk phos down to 142. Positive UA, culture pending. 12/22/2018 patient is status post cystoscopy with exchange of bilateral ureteral stents on 12/17/2018 .complains of dizziness, increased weakness .significant edema ,waist, bilateral flank areas and legs.Creatinine 4.5, hemoglobin increased to 7.2. Maintained on D5W at 70 as per nephrology. Intermittent nausea, no vomiting, no diarrhea. Maintained on IV antibiotics of Invanz per picc as per ID. IV fluids of D5W at 70 as per nephrology. 12/23/2018 oxygen requirements worsening, now requiring 2 L nasal cannula to maintain O2 sats in the 90s.renal function continues to slowly improving, 3.92, sodium normalized 142. Received 1 dose of Lasix IV push today with oral Lasix ordered to start tomorrow as per nephrology. Maintained on Invanz as per infectious disease. Complains of multiple episodes of diarrhea today. 12/24/18 received another dose of Lasix 40 IV push today as per nephrology. One more week of Invanz to complete therapy as recommended per infectious disease. Creatinine down to 3.87. Diarrhea improving, negative for C. di fficile colitis. Afebrile, WBC 3.4. Chest x-ray last night reported bilateral small pleural effusions, greater on the right. Vital signs stable, maintaining O2 sats in the 90s on room air. 12/25/2018 renal function continues to improve, trending down to 3.72. Alk phos 191. Continues on Invanz as per ID. Afebrile. Vital signs stable. Denies chest pain, palpitations or shortness of breath. Denies lightheadedness, dizziness or focal deficits. Objective - Vital Signs Vital signs: Vital Signs Temp 98.1 F 12/25/18 14:52 Pulse 78 12/25/18 14:52 Resp 16 12/25/18 14:52 BP 121/69 12/25/18 14:52 Pulse Ox 98 12/25/18 14:52 Intake & Output 12/24/18 12/25/18 12/25/18 18:59 06:59 18:59 Intake Total 200 400 Output Total 500 600 Balance -500 -400 400 Intake: Oral 200 400 Output: Urine 500 600 Other: Voiding Method Indwelling Catheter Indwelling Catheter Indwelling Catheter # Voids 1 # Bowel Movements 1 1 - Exam PHYSICAL EXAM: VITAL SIGNS: As above GENERAL: Sitting up in chair, no acute distress HEENT: Conjunctivae normal. eyes normal. Oral mucosa moist NECK: No JVD. No thyroid enlargement. No LNs CARDIOVASCULAR: S1, S2 regular. No murmur RESPIRATION: Breath sounds diminished in the bases. No rhonchi or crackles. No wheezing ABDOMEN: Soft, distended, abdominal edema with mild diffuse tenderness. No gua rding. no masses palpable.Bowel sounds heard. LEGS: Positive edema of legs, up into abdomen and bilateral flanks PSYCHIATRY: Alert and oriented X3, mood and affect normal. NERVOUS SYSTEM: Cranial N 2-12 grossly normal. Moves all 4 limbs. Diffuse weakness ,No focal deficits. Microbiology 12/16/18 15:20 Urine,Catheterized Urine Culture - Final 12/08/18 22:20 Urine,Voided Urine Culture - Final Enterococcus faecalis Morganella morganii 12/03/18 18:52 Urine,Voided Urine Culture - Final Morganella morganii - Labs CBC & Chem 7: 12/25/18 07:15 12/25/18 07:15 Labs: Abnormal Lab Results - Last 24 Hours (Table) 12/24/18 12/25/18 12/25/18 Range/Units 06:24 07:15 07:15 RBC 3.01 L (3.80-5.40) m/uL Hgb 7.9 L (11.4-16.0) gm/dL Hct 26.9 L (34.0-46.0) % MCHC 29.4 L (31.0-37.0) g/dL RDW 20.2 H (11.5-15.5) % Lymphocytes # 0.8 L (1.0-4.8) k/uL Chloride 114 H (98-107) mmol/L BUN 49 H (7-17) mg/dL Creatinine 3.72 H (0.52-1.04) mg/dL Calcium 8.3 L (8.4-10.2) mg/dL Iron 21 L (50-170) ug/dL TIBC 166 L (228-460) ug/dL Ferritin 511.2 H (10.0-291.0) ng/mL Alkaline Phosphatase 191 H (38-126) U/L Albumin 2.5 L (3.5-5.0) g/dL Assessment and Plan Assessment: Acute complicated urinary tract infection, drug-resistant, with enterococcus faecalis as well as Morganella morganii, with possible sepsis. Currently on Invanz. Acute on chronic renal failure with acute tubular necrosis, secondary to obstructive uropathy, chronic,stage IV. -Chronic hypotension maintained on midodrin. -Metabolic acidosis secondary to acute renal failure, maintained on oral sodium bicarb -SVT -Hypomagnesemia -Elevated troponin possibly related to tachycardia as per cardiology Hypernatremia, improved Bilateral hydronephrosis, bilateral ureteral stents replaced by Dr. Contreras, 1 History of interstitial nephritis History of UTI with Enterobacter cloacae Acute on chronic Anemia, symptomatic, multifactorial including renal failure, iron deficiency Hypoalbuminemia with mild to moderate protein calorie malnutrition, BMI 22 Gait dysfunction history of deep vein thrombosis Chronic neuropathy Bibibasilar atelectasis history of gastro-intestinal bleed History of breast cancer history of squamous cell cancer and melanoma History of lung cancer History of Clostridium difficile colitis History of portal vein thrombosis History of nonalcoholic cirrhosis Factor 5 Leiden deficiency History of appendectomy History of breast surgery History of depression T10 compression fracture unchanged Status post PICC line placement Full code - Plan: Continue current medication regime, monitoring and symptomatically treatment. Diuretics as per nephrology.Antibiotics of Invanz as per ID. Close monitoring of renal function, electrolytes with repeat labs ordered for a.m. Aggressive pulmonary toileting with incentive spirometer reinforced. Discharge planning in progress for [facility] rehab.tomorrow. The impression and plan of care has been dictated as directed. : I performed a history and examination of this patient, discussed the same with the dictator. I agree with the dictator's note ,documented as a scribe. Any additional findings or plans will be noted.
[2018-12-25] MEDS ORDERED: FUROSEMIDE 10 MG/ML 4 ML VIAL IV STA (15:59)
[2018-12-25] MEDS: LACTOBACILLUS ACIDOPH & BULGAR 1 EACH PACKET PO SCH ×2 (17:04→20:39)
--- NOTE | 2018-12-25 19:39 | PN ---
PROGRESS NOTE DATE OF SERVICE: 12/25/2018. REASON FOR FOLLOWUP: Complicated urinary tract infection. INTERVAL HISTORY: The patient is currently afebrile. Patient has been breathing comfortably. Denies having any chest pain or any cough. No nausea, vomiting. No abdominal pain or diarrhea. PHYSICAL EXAMINATION: Blood pressure 121/69 with a pulse of 73, temperature 98.1. She is 98% on 2 L nasal cannula. General description is an elderly female lying in bed in no distress. Respiratory system: Unlabored breathing. Clear to auscultation anteriorly. Heart S1, S2. Regular rate and rhythm. Abdomen soft. No tenderness. LABS: Hemoglobin 7.1, white count 4.3, BUN of 49, creatinine 3.72. DIAGNOSTIC IMPRESSION AND PLAN: Patient with complicated urinary tract infection. Culture has been positive for Morganella multiple antibiotic allergies. The patient is currently covered with Invanz to continue for about a week. Did have overall improvement of kidney function. Continue supportive care. MMODL / IJN: [id number] /
--- NOTE | 2018-12-25 19:40 | PN ---
PROGRESS NOTE Patient is seen for followup for acute kidney injury on top of chronic kidney disease. She is currently doing better. The patient is complaining of lower extremity edema for which she has been receiving Lasix daily. Renal function continues to improve, status post stent exchange. PHYSICAL EXAMINATION: This morning: Blood pressure 125/74, heart rate 88 per minute. She is afebrile. Examination of the heart S1, S2. Examination of the lungs, bilateral breath sounds are heard. Abdomen is soft, nontender. Examination of the lower extremities shows edema 2+ bilaterally. [employer] exam is grossly intact. LAB: Show sodium 145, potassium 4.5, BUN 49, creatinine 3.7, hemoglobin 7.9 g/dL. ASSESSMENT: 1. Acute kidney injury, obstructive uropathy with a solitary functioning kidney, currently improving, status post bilateral ureteral stent exchange. 2. Hypervolemia with lower extremity edema. Continue with IV Lasix. I will repeat another dose today. The patient is encouraged to increase oral intake particularly of protein and have also advised to increase activity as tolerated. 3. Chronic kidney disease secondary to obstructive uropathy with nephrolithiasis and with some evidence of left renal atrophy. However, ultrasound of the kidneys shows good sized kidneys bilaterally. 4. Metabolic acidosis maintained on oral sodium bicarb. 5. Anemia, status post IV iron. Maintained on Aranesp. 6. Urinary tract infection with Enterococcus faecalis and Morganella morganii, maintained on antibiotics. PLAN: Repeat IV Lasix x1. Encourage increased oral intake and increase activity as tolerated. MMODL / IJN: [id number] /
[2018-12-25] MEDS: DIPHENOX-ATROP 2.5-0.025 MG 1 EACH TAB PO PRN (20:38)
[2018-12-25] MEDS: FUROSEMIDE 10 MG/ML 4 ML VIAL IV SCH (23:19)
[2018-12-26] MEDS: LEVOTHYROXINE 50 MCG TAB PO SCH (05:22)
[2018-12-26] MEDS: ERTAPENEM 0.5 GM in SODIUM CHLORIDE 0.9% 50 ML IVPB SCH (08:30)
[2018-12-26] MEDS: ACETAMINOPHEN TAB 325 MG TAB PO PRN ×2 (08:30→16:56)
[2018-12-26] MEDS: ASPIRIN 325 MG TAB PO SCH (08:31)
[2018-12-26] MEDS: PANTOPRAZOLE 40 MG TABLET PO SCH (08:31)
[2018-12-26] MEDS: SODIUM BICARBONATE TAB 650 MG TAB PO SCH ×2 (08:31→20:12)
[2018-12-26] MEDS: ESCITALOPRAM 20 MG TAB PO SCH (08:31)
[2018-12-26] MEDS: MIDODRINE 5 MG TAB PO SCH ×3 (08:31→20:10)
[2018-12-26] MEDS: LACTOBACILLUS ACIDOPH & BULGAR 1 EACH PACKET PO SCH ×2 (08:31→20:12)
[2018-12-26] MEDS: FUROSEMIDE 10 MG/ML 4 ML VIAL IV SCH ×2 (08:31→20:12)
[2018-12-26 08:45] LABS: Anisocytosis Moderate; Basophils # (A) 0.1 k/uL (0-0.2); Basophils % (A) 1 %; Eosinophils # (A) 0.2 k/uL (0-0.7); Eosinophils % (A) 6 %; HCT 26.6 % (34.0-46.0); HGB 7.2 gm/dL (11.4-16.0); Hypochromasia Marked; Lymphocytes # (A) 0.9 k/uL (1.0-4.8); Lymphocytes % (A) 23 %; MCH 24.8 pg (25.0-35.0); MCHC 27.1 g/dL (31.0-37.0); MCV 91.8 fL (80.0-100.0); Macrocytosis Slight; Mean Platelet Volume 7.2; Monocytes # (A) 0.3 k/uL (0-1.0); Monocytes % (A) 7 %; Neutrophils # (A) 2.3 k/uL (1.3-7.7); Neutrophils % (A) 59 %; Platelet Count 233 k/uL (150-450); RBC 2.89 m/uL (3.80-5.40); RDW 20.8 % (11.5-15.5); WBC 3.8 k/uL (3.8-10.6)
[2018-12-26 09:06] LABS: Albumin 2.3 g/dL (3.5-5.0); Calcium 7.8 mg/dL (8.4-10.2); Potassium 4.4 mmol/L (3.5-5.1); Total Bilirubin 0.3 mg/dL (0.2-1.3)
[2018-12-26] MEDS: DIPHENOX-ATROP 2.5-0.025 MG 1 EACH TAB PO PRN ×2 (11:51→20:12)
--- NOTE | 2018-12-26 14:36 | P.PN ---
Subjective Patient is seen in follow-up for acute kidney injury on chronic kidney disease. Patient has chronic kidney disease stage IV with baseline creatinine near 2.5. Creatinine peaked at 4.9 this admission and is 3.51 today. She remains nonoliguric. She is awake and alert. Denies chest pain or shortness of breath. No vomiting or diarrhea. Patient underwent cystoscopy with bilateral ureteral stent exchange on December 17. Edema improving. Vital signs are stable. General: The patient appeared well nourished and normally developed. HEENT: Head exam is unremarkable. Neck is without jugular venous distension. LUNGS: Lungs are clear to auscultation and percussion. Breath sounds decreased. HEART: Rate and Rhythm are regular. First and second heart sounds normal. No murmurs, rubs or gallops. ABDOMEN: Abdominal exam reveals normal bowel sounds. Non-tender. EXTREMITITES: 1+ edema. Objective - Vital Signs Vital signs: Vital Signs Temp 99.3 F 12/26/18 07:00 Pulse 86 12/26/18 07:00 Resp 16 12/26/18 08:35 BP 111/65 12/26/18 07:00 Pulse Ox 94 L 12/26/18 07:00 Intake & Output 12/25/18 12/26/18 12/26/18 18:59 06:59 18:59 Intake Total 400 Output Total 2850 500 Balance 400 -2850 -500 Weight 67.7 kg Intake: Oral 400 Output: Urine 2850 500 Other: Voiding Method Indwelling Catheter Indwelling Catheter Indwelling Catheter # Voids 1 # Bowel Movements 1 1 - Labs CBC & Chem 7: 12/26/18 08:04 12/26/18 08:04 Labs: Abnormal Lab Results - Last 24 Hours (Table) 12/26/18 12/26/18 12/26/18 Range/Units 08:04 08:04 08:21 RBC 2.89 L (3.80-5.40) m/uL Hgb 7.2 L (11.4-16.0) gm/dL Hct 26.6 L (34.0-46.0) % MCH 24.8 L (25.0-35.0) pg MCHC 27.1 L (31.0-37.0) g/dL RDW 20.8 H (11.5-15.5) % Lymphocytes # 0.9 L (1.0-4.8) k/uL Chloride 113 H (98-107) mmol/L BUN 45 H (7-17) mg/dL Creatinine 3.51 H (0.52-1.04) mg/dL Plasma Lactic Acid Alex 0.6 L (0.7-2.0) mmol/L Calcium 7.8 L (8.4-10.2) mg/dL Alkaline Phosphatase 170 H (38-126) U/L Total Protein 6.0 L (6.3-8.2) g/dL Albumin 2.3 L (3.5-5.0) g/dL Assessment and Plan Plan: Assessment: 1. Acute kidney injury secondary to obstructive uropathy. Creatinine peaked at 4.9 this admission and is 3.51 today. 2. Bilateral hydronephrosis status post exchange of ureteral stents this admission. Urology following. 3. Hypernatremia secondary to lack of oral water intake. Better. 4. Hyperkalemia secondary to acute kidney injury and metabolic acidosis. Improved with medical management. 5. Anemia of chronic kidney disease. Maintained on Aranesp. Iron def noted. 6. UTI maintained on antibiotics. 7. Chronic kidney disease stage IV secondary to obstructive uropathy. Baseline creatinine near 2.5. 8. Chronic hypotension maintained on midodrine. 9. Metabolic acidosis due to acute kidney injury maintained on oral sodium bi carbonate. Better. 10. Hypomagnesemia from poor oral intake. Improved post replacement. Plan: Continue lasix 40 mg IV BID. Continue to monitor renal function and urine output. Iv iron x 3 doses. First dose today. No need for renal replacement therapy at this time.
[2018-12-26] MEDS: SODIUM FERRIC GLUCONAT-SUCROSE 125 MG in SODIUM CHLORIDE 0.9% 100 ML IVPB SCH (16:56)
[2018-12-26] MEDS: CHOLESTYRAMINE (WITH SUGAR) 4 GM PACKET PO SCH (16:57)
--- NOTE | 2018-12-26 17:10 | P.PN ---
Subjective Progress Note Date: 12/26/18 This is a 68-year-old female admitted with acute UTI, SVT in a patient with history of lung CA and multiple other medical issues. Reports bilateral lower quadrant pain that radiates into the bilateral flanks. Reports significant nausea ,vomiting with significant weight loss over the last month from 210 pounds down to 136 pounds. Today able to tolerate diet intake with no nausea or vomiting. Reports shortness of breath with exertion. Reports bowel odor to urine. Patient converted from SVT during placement of IJ. Echo pending. CT of abdomen and pelvis suggestive of ileus, no free air, possible anasarca, bilateral hydronephrosis, kidneys unchanged, possible cystitis, minimal free fluid in the abdomen, hepatic cirrhosis. Afebrile. Hemoglobin 7.3, albumin 2.3, creatinine 2.55. Alk phos down to 142. Positive UA, culture pending. 12/22/2018 patient is status post cystoscopy with exchange of bilateral ureteral stents on 12/17/2018 .complains of dizziness, increased weakness .significant edema ,waist, bilateral flank areas and legs.Creatinine 4.5, hemoglobin increased to 7.2. Maintained on D5W at 70 as per nephrology. Intermittent nausea, no vomiting, no diarrhea. Maintained on IV antibiotics of Invanz per picc as per ID. IV fluids of D5W at 70 as per nephrology. 12/23/2018 oxygen requirements worsening, now requiring 2 L nasal cannula to maintain O2 sats in the 90s.renal function continues to slowly improving, 3.92, sodium normalized 142. Received 1 dose of Lasix IV push today with oral Lasix ordered to start tomorrow as per nephrology. Maintained on Invanz as per infectious disease. Complains of multiple episodes of diarrhea today. 12/24/18 received another dose of Lasix 40 IV push today as per nephrology. One more week of Invanz to complete therapy as recommended per infectious disease. Creatinine down to 3.87. Diarrhea improving, negative for C. di fficile colitis. Afebrile, WBC 3.4. Chest x-ray last night reported bilateral small pleural effusions, greater on the right. Vital signs stable, maintaining O2 sats in the 90s on room air. 12/25/2018 renal function continues to improve, trending down to 3.72. Alk phos 191. Continues on Invanz as per ID. Afebrile. Vital signs stable. Denies chest pain, palpitations or shortness of breath. Denies lightheadedness, dizziness or focal deficits. 12/26/2018 Lasix increased yesterday with significant improvement in edema. Creatinine continues trending down to 3.51. Hemoglobin 7.2 Diarrhea remains significant. Invanz discontinued, Questran ordered. T-max 99.3. Denies chest pain, palpitations or shortness of breath. Objective - Vital Signs Vital signs: Vital Signs Temp 99.3 F 12/26/18 07:00 Pulse 86 12/26/18 07:00 Resp 16 12/26/18 07:00 BP 111/65 12/26/18 07:00 Pulse Ox 94 L 12/26/18 07:00 Intake & Output 12/25/18 12/26/18 12/26/18 18:59 06:59 18:59 Intake Total 400 Output Total 2850 Balance 400 -2850 Intake: Oral 400 Output: Urine 2850 Other: Voiding Method Indwelling Catheter Indwelling Catheter # Voids 1 # Bowel Movements 1 1 - Exam PHYSICAL EXAM: VITAL SIGNS: As above GENERAL: Sitting up in chair, no acute distress HEENT: Conjunctivae normal. eyes normal. Oral mucosa moist NECK: No JVD. No thyroid enlargement. No LNs CARDIOVASCULAR: S1, S2 regular. No murmur RESPIRATION: Breath sounds diminished in the bases. No rhonchi or crackles. No wheezing ABDOMEN: Soft, distended, abdominal edema with mild diffuse tenderness. No guarding. no masses palpable.Bowel sounds heard. LEGS: Decreased edema of legs, up into abdomen and bilateral flanks PSYCHIATRY: Alert and oriented X3, mood and affect normal. NERVOUS SYSTEM: Cranial N 2-12 grossly normal. Moves all 4 limbs. Diffuse w eakness ,No focal deficits. Microbiology 12/16/18 15:20 Urine,Catheterized Urine Culture - Final 12/08/18 22:20 Urine,Voided Urine Culture - Final Enterococcus faecalis Morganella morganii 12/03/18 18:52 Urine,Voided Urine Culture - Final Morganella morganii - Labs CBC & Chem 7: 12/26/18 08:04 12/26/18 08:04 Labs: Abnormal Lab Results - Last 24 Hours (Table) 10/18/19 10/18/19 10/18/19 Range/Units 08:04 08:04 08:21 RBC 2.89 L (3.80-5.40) m/uL Hgb 7.2 L (11.4-16.0) gm/dL Hct 26.6 L (34.0-46.0) % MCH 24.8 L (25.0-35.0) pg MCHC 27.1 L (31.0-37.0) g/dL RDW 20.8 H (11.5-15.5) % Lymphocytes # 0.9 L (1.0-4.8) k/uL Chloride 113 H (98-107) mmol/L BUN 45 H (7-17) mg/dL Creatinine 3.51 H (0.52-1.04) mg/dL Plasma Lactic Acid Alex 0.6 L (0.7-2.0) mmol/L Calcium 7.8 L (8.4-10.2) mg/dL Alkaline Phosphatase 170 H (38-126) U/L Total Protein 6.0 L (6.3-8.2) g/dL Albumin 2.3 L (3.5-5.0) g/dL Assessment and Plan Assessment: Acute complicated urinary tract infection, drug-resistant, with enterococcus faecalis as well as Morganella morganii, with possible sepsis. Currently on Invanz. Acute on chronic renal failure with acute tubular necrosis, secondary to obstructive uropathy, chronic,stage IV. -Chronic hypotension maintained on midodrin. -Metabolic acidosis secondary to acute renal failure, maintained on oral sodium bicarb -SVT -Hypomagnesemia -Elevated troponin possibly related to tachycardia as per cardiology Hypernatremia, improved Bilateral hydronephrosis, bilateral ureteral stents replaced by Dr. Contreras, 12/17/2018 History of interstitial nephritis History of UTI with Enterobacter cloacae Acute on chronic Anemia, symptomatic, multifactorial including renal failure, iron deficiency Hypoalbuminemia with mild to moderate protein calorie malnutrition, BMI 22 Gait dysfunction history of deep vein thrombosis Chronic neuropathy Bibibasilar atelectasis history of gastro-intestinal bleed History of breast cancer history of squamous cell cancer and melanoma History of lung cancer History of Clostridium difficile colitis History of portal vein thrombosis History of nonalcoholic cirrhosis Factor 5 Leiden deficiency History of appendectomy History of breast surgery History of depression T10 compression fracture unchanged Status post PICC line placement Full code - Plan: Continue current medication regime, monitoring and symptomatically treatment. Daily weights. Orthostatic vital signs every shift. Lidocaine patch added for pain management of back pain. Diuretics as per nephrology.Antibiotics dcd as per ID. Questran ordered. Close monitoring of renal function, electrolytes with repeat labs ordered for a.m. Aggressive pulmonary toileting with incentive spirometer reinforced. Discharge planning in progress for [facility] subacute rehab.Saturday. The impression and plan of care has been dictated as directed. : I performed a history and examination of this patient, discussed the same with the dictator. I agree with the dictator's note ,documented as a scribe. Any additional findings or plans will be noted.
--- NOTE | 2018-12-26 17:53 | PN ---
PROGRESS NOTE DATE OF SERVICE: 12/26/2018 REASON FOR FOLLOWUP: 1. Complicated UTI. 2. Diarrhea, antibiotic-associated. INTERVAL HISTORY: The patient is currently afebrile. She has been breathing comfortably. Denies having any chest pain or shortness of breath or cough. The patient did have significant diarrhea with multiple loose stools, though no blood or mucus in the stool. PHYSICAL EXAMINATION: Blood pressure is 111/65 with a pulse of 86, temperature 99.3. She is 94% on room air. General description is an elderly female up in the bed in no distress. RESPIRATORY SYSTEM: Unlabored breathing. Clear to auscultation anteriorly. HEART: S1, S2. Regular rate and rhythm. ABDOMEN: Soft. No tenderness. LABS: Hemoglobin 7.2, white count 3.8, BUN of 45, creatinine 3.51. Stool for C difficile is negative. DIAGNOSTIC IMPRESSION AND PLAN: Patient with a complicated urinary tract infection. Urine grew morganella and enterococcus. The patient has MULTIPLE ANTIBIOTIC ALLERGIES. Currently being treated with Invanz. She received about 10 days of IV antibiotics after change of her should be more than enough. In view of the significant diarrhea, more likely antibiotic- associated, we will go ahead and discontinue the Invanz. Will add Questran for symptomatic relief. Patient advised to increase her yogurt intake. All questions and concerns were answered. MMODL / IJN: [id number] /
[2018-12-26] MEDS: LIDOCAINE 5% PATCH TOPICAL SCH (20:11)
[2018-12-27] MEDS: LEVOTHYROXINE 50 MCG TAB PO SCH (05:30)
[2018-12-27] MEDS: LACTOBACILLUS ACIDOPH & BULGAR 1 EACH PACKET PO SCH ×2 (09:52→21:27)
[2018-12-27] MEDS: PANTOPRAZOLE 40 MG TABLET PO SCH (09:52)
[2018-12-27] MEDS: SODIUM BICARBONATE TAB 650 MG TAB PO SCH ×2 (09:52→21:25)
[2018-12-27] MEDS: LIDOCAINE 5% PATCH TOPICAL SCH ×2 (09:54→22:28)
[2018-12-27] MEDS: ESCITALOPRAM 20 MG TAB PO SCH (09:54)
[2018-12-27] MEDS: MIDODRINE 5 MG TAB PO SCH ×3 (09:54→16:55)
[2018-12-27] MEDS: FUROSEMIDE 10 MG/ML 4 ML VIAL IV SCH ×2 (09:55→21:25)
[2018-12-27] MEDS: ASPIRIN 325 MG TAB PO SCH (09:55)
[2018-12-27] MEDS: SODIUM FERRIC GLUCONAT-SUCROSE 125 MG in SODIUM CHLORIDE 0.9% 100 ML IVPB SCH (09:55)
[2018-12-27] MEDS: CHOLESTYRAMINE (WITH SUGAR) 4 GM PACKET PO SCH ×2 (09:55→13:44)
--- NOTE | 2018-12-27 10:59 | P.PN ---
Subjective Progress Note Date: 12/27/18 Seen and examined for the follow-up of acute kidney injury. Complaining of lower extremity swelling and left abdominal pain. No nausea vomiting diarrhea. Objective - Vital Signs Vital signs: Vital Signs Temp 98.4 F 12/27/18 08:00 Pulse 80 12/27/18 08:00 Resp 17 12/27/18 08:00 BP 119/63 12/27/18 08:00 Pulse Ox 94 L 12/27/18 08:00 Intake & Output 12/26/18 12/27/18 12/27/18 18:59 06:59 18:59 Intake Total 200 Output Total 500 1300 Balance -500 -1100 Weight 67.7 kg Intake: Oral 200 Output: Urine 500 1300 Other: Voiding Method Indwelling Catheter Indwelling Catheter Indwelling Catheter - Exam No acute distress. S1-S2 heard Lungs clear Abdomen distended Edema - Labs CBC & Chem 7: 12/26/18 08:04 12/26/18 08:04 Assessment and Plan Assessment: #1 acute kidney injury secondary to obstructive uropathy. Creatinine improving status post stent exchange. #2 chronic kidney disease stage III with a baseline creatinine of 1.7-2.5 MG per DL. #3 metabolic acidosis secondary to acute kidney injury #4 complicated UTI, finished course of antibiotics #5 low normal blood pressures. Plan: #1 continue with Lasix 40 mg IV twice a day. #2 appreciate urology input #3 avoid nephrotoxic agents and hypotensive episodes.
[2018-12-27] MEDS ORDERED: MORPHINE SULFATE ER 15 MG TABLET PO STA (11:19)
[2018-12-27] MEDS: MORPHINE SULFATE ER 15 MG TABLET PO SCH (21:25)
--- NOTE | 2018-12-28 03:47 | PN ---
PROGRESS NOTE 68-year-old white female with ureteral stent stenosis. Renal disease is slowly improving status post stent placement. SVT on admission has not recurred. UTI, finishing antibiotics. She is requesting increased abdominal pain medications of morphine, which will be restarted. Cardiovascular: S1, S2. Lungs clear. GI is diffuse tenderness. Hematology negative Homans. ASSESSMENT: 1. Supraventricular tachycardia. 2. Urinary tract infection. 3. Acute tubular necrosis. 4. Ureteral stent stenosis. Continue current treatment. Add morphine sulfate 50 mg b.i.d. Continue current treatments. IV Lasix continues to treat extreme large lymphedema type changes in the lower legs, which is improving her leg swelling. Renal function continues to improve. Follow up in the next 24-48 hours. Possible discharge home on Saturday or Saturday. MMODL / IJN: [id number] /
[2018-12-28] MEDS: LEVOTHYROXINE 50 MCG TAB PO SCH (05:28)
--- NOTE | 2018-12-28 07:57 | P.PN ---
Subjective Progress Note Date: 12/28/18 The patient had bilateral stent placement a week ago. She is still having some abdominal discomfort. I do not think this has anything to do with the stents. Creatinine is improving. I will change the stents again in 4-6 months. Objective - Vital Signs Vital signs: Vital Signs Temp 99.1 F 12/28/18 00:20 Pulse 92 12/28/18 00:20 Resp 18 12/28/18 05:23 BP 116/54 12/28/18 00:20 Pulse Ox 80 L 12/28/18 00:20 Intake & Output 12/27/18 12/28/18 12/28/18 18:59 06:59 18:59 Intake Total 100 Output Total 1600 1300 Balance -1600 -1200 Intake: Oral 100 Output: Urine 1600 1300 Other: Voiding Method Indwelling Catheter Indwelling Catheter # Voids 1 # Bowel Movements 1 - Labs CBC & Chem 7: 12/26/18 08:04 12/26/18 08:04
--- NOTE | 2018-12-28 10:37 | P.PN ---
Subjective Progress Note Date: 12/28/18 Seen and examined for the follow-up of acute kidney injury. feels better today. Objective - Vital Signs Vital signs: Vital Signs Temp 98.3 F 12/28/18 07:00 Pulse 84 12/28/18 07:00 Resp 17 12/28/18 07:00 BP 116/66 12/28/18 07:00 Pulse Ox 92 L 12/28/18 07:00 Intake & Output 12/27/18 12/28/18 12/28/18 18:59 06:59 18:59 Intake Total 100 Output Total 1600 1300 Balance -1600 -1200 Intake: Oral 100 Output: Urine 1600 1300 Other: Voiding Method Indwelling Catheter Indwelling Catheter # Voids 1 # Bowel Movements 1 - Exam No acute distress. S1-S2 heard Lungs clear Abdomen distended Edema - Labs CBC & Chem 7: 12/26/18 08:04 12/26/18 08:04 Assessment and Plan Assessment: #1 acute kidney injury secondary to obstructive uropathy. Creatinine improving status post stent exchange. #2 chronic kidney disease stage III with a baseline creatinine of 1.7-2.5 MG per DL. #3 metabolic acidosis secondary to acute kidney injury #4 complicated UTI, finished course of antibiotics #5 low normal blood pressures. Plan: #1 continue with Lasix 40 mg IV twice a day. #2 appreciate urology input #3 avoid nephrotoxic agents and hypotensive episodes.
[2018-12-28] MEDS: MORPHINE SULFATE ER 15 MG TABLET PO SCH ×2 (10:45→21:11)
[2018-12-28] MEDS: FUROSEMIDE 10 MG/ML 4 ML VIAL IV SCH ×2 (10:45→21:12)
[2018-12-28] MEDS: SODIUM FERRIC GLUCONAT-SUCROSE 125 MG in SODIUM CHLORIDE 0.9% 100 ML IVPB SCH (10:45)
[2018-12-28] MEDS: ASPIRIN 325 MG TAB PO SCH (10:46)
[2018-12-28] MEDS: ESCITALOPRAM 20 MG TAB PO SCH (10:46)
[2018-12-28] MEDS: LACTOBACILLUS ACIDOPH & BULGAR 1 EACH PACKET PO SCH ×2 (10:46→21:12)
[2018-12-28] MEDS: PANTOPRAZOLE 40 MG TABLET PO SCH (10:46)
[2018-12-28] MEDS: SODIUM BICARBONATE TAB 650 MG TAB PO SCH ×2 (10:46→21:11)
[2018-12-28] MEDS: MIDODRINE 5 MG TAB PO SCH ×3 (10:46→16:31)
[2018-12-28] MEDS: CHOLESTYRAMINE (WITH SUGAR) 4 GM PACKET PO SCH ×2 (10:48→16:28)
[2018-12-28] MEDS: ACETAMINOPHEN TAB 325 MG TAB PO PRN (16:38)
[2018-12-28] MEDS: LIDOCAINE 5% PATCH TOPICAL SCH (21:18)
[2018-12-28] MEDS ORDERED: MECLIZINE 12.5 MG TAB PO PRN (22:00)
--- NOTE | 2018-12-28 22:27 | PN ---
PROGRESS NOTE 68-year-old white female was admitted for UTI, renal failure secondary to ureteral stenosis, status post ureteral replacement. Creatinine is improving. Morphine is helping her abdominal pain. She is sleeping better. Labs are pending. Blood pressure 114/66, temp 98. She is on 93% on room air, daily weights are unavailable, but they were ordered. Cardiovascular S1-S2. Lungs clear. IV antibiotics was stopped. Continue with IV Lasix. Possible discharge home next day or 2 if PT and OT approve. Order some Antivert for dizziness p.r.n. She is getting dizzy standing up. MMODL / IJN: [id number] /
--- NOTE | 2018-12-28 23:09 | PN ---
PROGRESS NOTE DATE OF SERVICE: 12/28/2018. REASON FOR FOLLOWUP VISIT: 1. UTI. 2. Diarrhea. INTERVAL HISTORY: The patient is currently afebrile. Patient has been breathing comfortably. Denies having any chest pain or cough. Abdominal pain has improved and diarrhea has slowed down. PHYSICAL EXAMINATION: Blood pressure is 114/66, pulse of 80, temperature 98.6. She is 93% on room air. General description is an elderly female lying in bed in no distress. Respiratory system: Unlabored breathing. Clear to auscultation anteriorly. Heart S1, S2. Regular rate and rhythm. ABDOMEN: Soft, no tenderness. LABS: No new labs have been obtained over the last 2 days. DIAGNOSTIC IMPRESSION AND PLAN: 1. Patient with a complicated urinary tract infection and urine cultures has been finalized with Enterococcus and Morganella. The patient underlying urinary tract infection has been adequately treated. Currently off antibiotic for the last 2 days with no worsening of respiratory symptoms. 2. The patient with diarrhea possible antibiotic associated, did improve after discontinuation of the Invanz and advised to take probiotic and continue with Questran. MMODL / IJN: [id number] /
[2018-12-29] MEDS: LEVOTHYROXINE 50 MCG TAB PO SCH (05:53)
[2018-12-29] MEDS: ACETAMINOPHEN TAB 325 MG TAB PO PRN ×2 (05:57→17:00)
[2018-12-29 07:27] LABS: Anisocytosis Slight; Basophils % (A) 1 %; Eosinophils # (A) 0.2 k/uL (0-0.7); Eosinophils % (A) 6 %; HCT 26.3 % (34.0-46.0); HGB 7.8 gm/dL (11.4-16.0); Hypochromasia Marked; Lymphocytes # (A) 0.9 k/uL (1.0-4.8); Lymphocytes % (A) 22 %; MCH 26.8 pg (25.0-35.0); MCHC 29.8 g/dL (31.0-37.0); MCV 90.1 fL (80.0-100.0); Mean Platelet Volume 6.3; Monocytes # (A) 0.3 k/uL (0-1.0); Monocytes % (A) 8 %; Neutrophils # (A) 2.6 k/uL (1.3-7.7); Neutrophils % (A) 61 %; Platelet Count 190 k/uL (150-450); RBC 2.91 m/uL (3.80-5.40); RDW 18.9 % (11.5-15.5); WBC 4.3 k/uL (3.8-10.6)
[2018-12-29 07:40] LABS: Albumin 2.4 g/dL (3.5-5.0); Calcium 7.8 mg/dL (8.4-10.2); Potassium 4.6 mmol/L (3.5-5.1); Total Bilirubin 0.3 mg/dL (0.2-1.3); Total Protein 6.3 g/dL (6.3-8.2)
[2018-12-29] MEDS: MORPHINE SULFATE ER 15 MG TABLET PO SCH ×2 (08:49→21:41)
[2018-12-29] MEDS: ESCITALOPRAM 20 MG TAB PO SCH (08:49)
[2018-12-29] MEDS: FUROSEMIDE 10 MG/ML 4 ML VIAL IV SCH ×2 (08:50→21:40)
[2018-12-29] MEDS: LACTOBACILLUS ACIDOPH & BULGAR 1 EACH PACKET PO SCH ×2 (08:50→21:40)
[2018-12-29] MEDS: CHOLESTYRAMINE (WITH SUGAR) 4 GM PACKET PO SCH ×2 (08:50→16:17)
[2018-12-29] MEDS: ASPIRIN 325 MG TAB PO SCH (08:50)
[2018-12-29] MEDS: PANTOPRAZOLE 40 MG TABLET PO SCH (08:50)
[2018-12-29] MEDS: MIDODRINE 5 MG TAB PO SCH ×3 (08:50→17:01)
[2018-12-29] MEDS: SODIUM BICARBONATE TAB 650 MG TAB PO SCH ×2 (08:50→21:41)
[2018-12-29] MEDS: SODIUM FERRIC GLUCONAT-SUCROSE 125 MG in SODIUM CHLORIDE 0.9% 100 ML IVPB SCH (09:48)
--- NOTE | 2018-12-29 11:11 | P.PN ---
Subjective Patient is seen in follow-up for acute kidney injury on chronic kidney disease. Patient has chronic kidney disease stage IV with baseline creatinine near 2.5. Creatinine peaked at 4.9 this admission and is 3.19 today. She remains nonoliguric. She is awake and alert. Denies chest pain or shortness of breath. No vomiting or diarrhea. Patient underwent cystoscopy with bilateral ureteral stent exchange on December 17. Edema improving. Vital signs are stable. General: The patient appeared well nourished and normally developed. HEENT: Head exam is unremarkable. Neck is without jugular venous distension. LUNGS: Lungs are clear to auscultation and percussion. Breath sounds decreased. HEART: Rate and Rhythm are regular. First and second heart sounds normal. No murmurs, rubs or gallops. ABDOMEN: Abdominal exam reveals normal bowel sounds. Non-tender. EXTREMITITES: 1+ edema. Objective - Vital Signs Vital signs: Vital Signs Temp 99.1 F 12/29/18 07:00 Pulse 95 12/29/18 07:00 Resp 18 12/29/18 07:00 BP 111/59 12/29/18 07:00 Pulse Ox 95 12/29/18 07:00 Intake & Output 12/28/18 12/29/18 12/29/18 18:59 06:59 18:59 Intake Total 118 760 Output Total 2700 150 Balance -2582 610 Weight 78 kg Intake: Oral 118 760 Output: Urine 2700 150 Uretheral (King) 1600 Other: Voiding Method Indwelling Catheter Indwelling Catheter Indwelling Catheter - Labs CBC & Chem 7: 12/29/18 07:17 12/29/18 07:17 Labs: Abnormal Lab Results - Last 24 Hours (Table) 12/29/18 12/29/18 Range/Units 07:17 07:17 RBC 2.91 L (3.80-5.40) m/uL Hgb 7.8 L (11.4-16.0) gm/dL Hct 26.3 L (34.0-46.0) % MCHC 29.8 L (31.0-37.0) g/dL RDW 18.9 H (11.5-15.5) % Lymphocytes # 0.9 L (1.0-4.8) k/uL BUN 37 H (7-17) mg/dL Creatinine 3.19 H (0.52-1.04) mg/dL Calcium 7.8 L (8.4-10.2) mg/dL Alkaline Phosphatase 163 H (38-126) U/L Albumin 2.4 L (3.5-5.0) g/dL Assessment and Plan Plan: Assessment: 1. Acute kidney injury secondary to obstructive uropathy. Creatinine peaked at 4.9 this admission and is 3.19 today. 2. Bilateral hydronephrosis status post exchange of ureteral stents this admission. Urology following. 3. Hypernatremia secondary to lack of oral water intake. Better. 4. Hyperkalemia secondary to acute kidney injury and metabolic acidosis. Improved with medical management. 5. Anemia of chronic kidney disease. Maintained on Aranesp. Iron def noted. 6. UTI s/p antibiotics. 7. Chronic kidney disease stage IV secondary to obstructive uropathy. Baseline creatinine near 2.5. 8. Chronic hypotension maintained on midodrine. 9. Metabolic acidosis due to acute kidney injury maintained on oral sodium bicarbonate. Better. 10. Hypomagnesemia from poor oral intake. Improved post replacement. Plan: Continue lasix 40 mg IV BID. Continue to monitor renal function and urine output. Iv iron x 3 doses. Third dose today.
--- NOTE | 2018-12-29 14:07 | XR ---
EXAMINATION TYPE: XR abdomen 2V DATE OF EXAM: 12/29/2018 CLINICAL DATA: 68 year-old female abdominal pain, [facility] COMPARISON: 06/30/2018 FINDINGS: Small bilateral pleural effusions persist. No evidence for free intraperitoneal air. Graft is present throughout. A few scattered small air-fluid levels. A few mildly dilated loops of small bowel measur e up to 3.7 cm. Surgical clips in the bilateral pelvis and right upper quadrant with bilateral ureter al stents in place. No significant stool burden. IMPRESSION: 1. Scattered colonic and small bowel air fluid levels. A couple small bowel loops are mildly dilated at 3.7 cm. The presence of colonic air favors a generalized ileus or enteritis rather than small ramila l obstruction at this time. Short interval follow-up can be considered. 2. Continued small effusions.
--- NOTE | 2018-12-29 14:15 | P.DS ---
Providers Date of admission: 12/03/18 19:02 Expected date of discharge: 12/29/18 Attending physician: Miles Collado Consults: 12/03/18 19:00 Consult Physician Urgent Consulting Provider: Nathaly Robledo Consult Reason/Comments: svt Do you want consulting provider notified?: Yes 12/04/18 11:56 Consult Physician Routine Consulting Provider: Darcie Sawant Consult Reason/Comments: ARF, Cr >2.5 Do you want consulting provider notified?: Yes 12/04/18 11:57 Consult Physician Routine Consulting Provider: Rex Epps Consult Reason/Comments: UTI Do you want consulting provider notified?: Yes 12/07/18 10:40 Consult Physician Urgent Consulting Provider: Dorian Contreras Consult Reason/Comments: Suspected blockage Do you want consulting provider notified?: Yes 12/07/18 14:42 Consult Physician Routine Consulting Provider: Dorian Contreras Consult Reason/Comments: blocked ureteral stents Do you want consulting provider notified?: Yes 12/15/18 12:35 Consult Physician Routine Consulting Provider: Dorian Contreras Consult Reason/Comments: ureteral stent replacement Do you want consulting provider notified?: Yes Primary care physician: Miles Collado [facility] Course: Final Diagnoses: Acute complicated urinary tract infection, drug-resistant, with enterococcus faecalis as well as Morganella morganii, with possible sepsis. Acute on chronic renal failure with acute tubular necrosis, secondary to obstructive uropathy, chronic,stage IV. -Chronic hypotension maintained on midodrin. -Metabolic acidosis secondary to acute renal failure, maintained on oral sodium bicarb -SVT -Hypomagnesemia -Elevated troponin possibly related to tachycardia as per cardiology Bilateral hydronephrosis, bilateral ureteral stents replaced by Dr. Contreras, 12/17/2018 History of interstitial nephritis History of UTI with Enterobacter cloacae Acute on chronic Anemia, symptomatic, multifactorial including renal failure, iron deficiency Hypoalbuminemia with mild to moderate protein calorie malnutrition, BMI 22 Gait dysfunction history of deep vein thrombosis Chronic neuropathy Bibibasilar atelectasis history of gastro-intestinal bleed History of breast cancer history of squamous cell cancer and melanoma History of lung cancer History of Clostridium difficile colitis History of portal vein thrombosis History of nonalcoholic cirrhosis Factor 5 Leiden deficiency History of appendectomy History of breast surgery History of depression T10 compression fracture unchanged Status post PICC line placement Full code Hospital course:This is a 68-year-old female admitted with acute UTI, SVT in a patient with history of lung CA and multiple other medical issues. Reports bilateral lower quadrant pain that radiates into the bilateral flanks. Reports significant nausea ,vomiting with significant weight loss over the last month from 210 pounds down to 136 pounds. Today able to tolerate diet intake with no nausea or vomiting. Reports shortness of breath with exertion. Reports bowel odor to urine. Patient converted from SVT during placement of IJ. Echo pending. CT of abdomen and pelvis suggestive of ileus, no free air, possible anasarca, bilateral hydronephrosis, kidneys unchanged, possible cystitis, minimal free fluid in the abdomen, hepatic cirrhosis. Afebrile. Hemoglobin 7.3, albumin 2.3, creatinine 2.55. Alk phos down to 142. Positive UA, culture pending. 12/22/2018 patient is status post cystoscopy with exchange of bilateral ureteral stents on 12/17/2018 .complains of dizziness, increased weakness .significant edema ,waist, bilateral flank areas and legs.Creatinine 4.5, hemoglobin increased to 7.2. Maintained on D5W at 70 as per nephrology. Intermittent nausea, no vomiting, no diarrhea. Maintained on IV antibiotics of Invanz per picc as per ID. IV fluids of D5W at 70 as per nephrology. 12/23/2018 oxygen requirements worsening, now requiring 2 L nasal cannula to maintain O2 sats in the 90s.renal function continues to slowly improving, 3.92, sodium normalized 142. Received 1 dose of Lasix IV push today with oral Lasix ordered to start tomorrow as per nephrology. Maintained on Invanz as per infectious disease. Complains of multiple episodes of diarrhea today. 12/24/18 received another dose of Lasix 40 IV push today as per nephrology. One more week of Invanz to complete therapy as recommended per infectious disease. Creatinine down to 3.87. Diarrhea improving, negative for C. difficile colitis. Afebrile, WBC 3.4. Chest x-ray last night reported bilateral small pleural effusions, greater on the right. Vital signs stable, maintaining O2 sats in the 90s on room air. 12/25/2018 renal function continues to improve, trending down to 3.72. Alk phos 191. Continues on Invanz as per ID. Afebrile. Vital signs stable. Denies chest pain, palpitations or shortness of breath. Denies lightheadedness, dizziness or focal deficits. 12/26/2018 Lasix increased yesterday with significant improvement in edema. Creatinine continues trending down to 3.51. Hemoglobin 7.2 Diarrhea remains significant. Invanz discontinued, Questran ordered. T-max 99.3. Denies chest pain, palpitations or shortness of breath. Significant clinical improvement. Diarrhea 1 this morning. Antivert added on for complaints of dizziness, improving. Patient is being discharged to [facility] subacute rehab pending flat plate of abdomen, and diuretics as per nephrology, in a stable condition with guarded prognosis.. EXAM: GENERAL: Sitting up in chair, alert and oriented 3, no acute distress CARDIOVASCULAR: S1, S2 regular. No murmur RESPIRATION: Breath sounds diminished in the bases. No rhonchi or crackles. No wheezing ABDOMEN: Soft, distended, abdominal edema with mild diffuse tenderness. No guarding.Bowel sounds heard. LEGS: Decreased edema of legs, up into abdomen and bilateral flanks NERVOUS SYSTEM: Cranial N 2-12 grossly normal. Moves all 4 limbs. Diffuse weakness ,No focal deficits. Microbiology 12/16/18 15:20 Urine,Catheterized Urine Culture - Final 12/08/18 22:20 Urine,Voided Urine Culture - Final Enterococcus faecalis Morganella morganii 12/03/18 18:52 Urine,Voided Urine Culture - Final Morganella morganii The impression and plan of care has been dictated as directed. : I performed a history and examination of this patient, discussed the same with the dictator. I agree with the dictator's note ,documented as a scribe. Any additional findings or plans will be noted. Patient Condition at Discharge: Stable Plan - Discharge Summary Discharge Rx Participant: No New Discharge Prescriptions: New Meclizine [Antivert] 12.5 mg PO TID PRN tab PRN Reason: Vertigo Darbepoetin Mike [Aranesp] 40 mcg SQ Q7D syringe Aspirin 325 mg PO DAILY tab Lactobacillus Acidoph & Bulgar [Lactinex] 1 each PO BID packet Lidocaine 5% Patch [Lidoderm 5% Patch] 1 patch TOPICAL HS patch Diphenox-Atrop 2.5-0.025 mg [Lomotil] 1 each PO Q6HR PRN #12 tab PRN Reason: Diarrhea Morphine Sulfate ER [Ms Contin] 15 mg PO Q12HR #6 tablet Nitroglycerin Sl Tabs [Nitrostat] 0.4 mg SUBLINGUAL Q5M PRN tab PRN Reason: Chest Pain Midodrine [ProAmatine] 5 mg PO AC-TID tab Pantoprazole [Protonix] 40 mg PO AC-BRKFST tablet. Cholestyramine (with Sugar) [Questran Packet] 4 gm PO BID@0900,1400 packet Sodium Bicarbonate Tab 650 mg PO BID tab Acetaminophen Tab [Tylenol] 650 mg PO Q6HR PRN tab PRN Reason: Fever And/ Or Pain Continue Levothyroxine Sodium [Synthroid] 50 mcg PO DAILY@0600 Escitalopram Oxalate [Lexapro] 20 mg PO DAILY Furosemide [Lasix] 20 mg PO DAILY Discharge Medication List Levothyroxine Sodium [Synthroid] 50 mcg PO DAILY@0600 07/04/17 [History] Escitalopram Oxalate [Lexapro] 20 mg PO DAILY 07/06/17 [History] Furosemide [Lasix] 20 mg PO DAILY 12/03/18 [History] Acetaminophen Tab [Tylenol] 650 mg PO Q6HR PRN tab 12/29/18 [Rx] Aspirin 325 mg PO DAILY tab 12/29/18 [Rx] Cholestyramine (with Sugar) [Questran Packet] 4 gm PO BID@0900,1400 packet 12/29/18 [Rx] Darbepoetin Mike [Aranesp] 40 mcg SQ Q7D syringe 12/29/18 [Rx] Diphenox-Atrop 2.5-0.025 mg [Lomotil] 1 each PO Q6HR PRN #12 tab 12/29/18 [Rx] Lactobacillus Acidoph & Bulgar [Lactinex] 1 each PO BID packet 12/29/18 [Rx] Lidocaine 5% Patch [Lidoderm 5% Patch] 1 patch TOPICAL HS patch 12/29/18 [Rx] Meclizine [Antivert] 12.5 mg PO TID PRN tab 12/29/18 [Rx] Midodrine [ProAmatine] 5 mg PO AC-TID tab 12/29/18 [Rx] Morphine Sulfate ER [Ms Contin] 15 mg PO Q12HR #6 tablet 12/29/18 [Rx] Nitroglycerin Sl Tabs [Nitrostat] 0.4 mg SUBLINGUAL Q5M PRN tab 12/29/18 [Rx] Pantoprazole [Protonix] 40 mg PO AC-BRKFST tablet. 12/29/18 [Rx] Sodium Bicarbonate Tab 650 mg PO BID tab 12/29/18 [Rx] Follow up Appointment(s)/Referral(s): [facility] [Provider Group] - 01/05/19 3:15 pm (Dr Gill. At [facility]) Darcie Sawant MD [STAFF PHYSICIAN] - 01/06/19 1:00 pm Miles Collado MD [Primary Care Provider] - 3 Days Elena Mg [NON-STAFF] - As Needed Rex Epps MD [STAFF PHYSICIAN] - 01/12/19 10:45 am Dorian Contreras MD [STAFF PHYSICIAN] - 01/06/19 11:20 am Naveen Johnson MD [STAFF PHYSICIAN] - 01/08/19 2:30 pm Patient Instructions/Handouts: Supraventricular Tachycardia (DC), Urinary Tract Infection in Women (DC), Chronic Kidney Disease Diet (DC), Hydronephrosis (DC) Activity/Diet/Wound Care/Special Instructions: Elena. Diuretics, clearance as per Nephrology.Arabrendap, change to Procrit as p er nephrology.Pending ABD xray, Magnesium level. PVR Diet: regular Activity: as tolerated CBC,BMP in 3 days Discharge Disposition: TRANSFER TO SNF/ECF
[2018-12-29] MEDS: DARBEPOETIN ALFA 40 MCG/0.4 ML SYRINGE SQ SCH (16:17)
[2018-12-29] MEDS: MAGNESIUM SULFATE-D5W PMX 1 GM in DEXTROSE/WATER 1 100ML.BAG IVPB SCH ×2 (16:17→18:11)
[2018-12-29] MEDS ORDERED: IOPAMIDOL CONTRAST (ORAL USE) VIAL PO PRN (16:29)
--- NOTE | 2018-12-29 18:25 | CT ---
EXAMINATION TYPE: CT abdomen pelvis wo con DATE OF EXAM: 12/29/2018 COMPARISON: None INDICATION: Recent UTI. Abdominal pain. DLP: 696.7 mGycm, Automated exposure control for dose reduction was used. CONTRAST: 0 mL of Isovue 300. Study performed without Oral Contrast TECHNIQUE: Axial images were obtained from above the diaphragm to the pubic rami in the axial plane a t 5 mm thick sections. Reconstructed images are reviewed on the computer in the coronal plane. FINDINGS: Limited CT sections are obtained the lung bases. There is a small right and minimal left pleural eff usion. Right breast prosthesis is evident. Scoliosis is present. Lung bases appear clear.. CT ABDOMEN: Ascites is present. Liver: Normal Spleen: Normal Pancreas: Normal Adrenal glands: The adrenal glands are normal. Gallbladder: Surgically absent Kidneys: No masses are evident. Bilateral hydronephrosis present. Ureteral stents are present bilater ally. No cysts are present. No renal stones are identified. Aorta: Vascular calcification is within the aorta. Inferior vena cava: Normal. CT PELVIS: Loops of bowel within the abdomen and pelvis are normal. There are loops of bowel which are incom pletely distended or lack oral contrast limiting their evaluation. Fecal debris is present to the col on. Appendix: Normal as visualized. Urinary bladder: Partially decompressed. There is air within the nondependent portion of the urinary bladder. Genitourinary structures: Surgical clips are in the posterior and bladder region. The uterus ovaries are absent. No suspicious omental caking is evident. Osseous structures: No suspicious lytic or sclerotic lesions. There is a right hip with some beam angella dening artifact. IMPRESSIONS: 1. Small right and minimal left pleural effusion. 2. Ascites. 3. Scoliosis. 4. Bilateral hydronephrosis with ureteral stents present. 5. Air within urinary bladder
[2018-12-29] MEDS: LIDOCAINE 5% PATCH TOPICAL SCH (21:40)
--- NOTE | 2018-12-29 22:55 | PN ---
PROGRESS NOTE DATE OF SERVICE: 12/29/2018 REASON FOR FOLLOWUP: 1. Gram-negative UTI. 2. Diarrhea, antibiotic-associated. INTERVAL HISTORY: The patient is currently afebrile. The patient has been breathing comfortably. Denies having any chest pain, shortness of breath or cough. Diarrhea has slowed down and slightly forming up. Still has a King catheter; the urine is currently clean. PHYSICAL EXAMINATION: Blood pressure is 96/56, pulse of 93, temperature 98. She is 90% on room air. General description is an elderly female up in the bed in no distress. RESPIRATORY SYSTEM: Unlabored breathing. Clear to auscultation anteriorly. HEART: S1, S2. Regular rate and rhythm. ABDOMEN: Soft. No tenderness. LABS: Hemoglobin 7.8, white count 4.3, BUN of 37, creatinine 3.19. DIAGNOSTIC IMPRESSION AND PLAN: 1. Patient with a complicated urinary tract infection. Urine culture with morganella and enterococcus. Patient's underlying UTI has been adequately treated. Currently off antibiotic therapy. 2. Diarrhea, antibiotic-associated. Did have improvement. Advised to continue with probiotic and yogurt intake and Questran. Continue with supportive care. MMODL / IJN: [id number] /
[2018-12-30] MEDS: LEVOTHYROXINE 50 MCG TAB PO SCH (06:02)
[2018-12-30 08:00] VITALS: BP 98/58; PULSE 79; RESP 12; TEMP 98.3
[2018-12-30] MEDS: MIDODRINE 5 MG TAB PO SCH (08:27)
[2018-12-30] MEDS: SODIUM BICARBONATE TAB 650 MG TAB PO SCH (08:27)
[2018-12-30] MEDS: PANTOPRAZOLE 40 MG TABLET PO SCH (08:27)
[2018-12-30] MEDS: MORPHINE SULFATE ER 15 MG TABLET PO SCH (08:27)
[2018-12-30] MEDS: ASPIRIN 325 MG TAB PO SCH (08:27)
[2018-12-30] MEDS: LACTOBACILLUS ACIDOPH & BULGAR 1 EACH PACKET PO SCH (08:27)
[2018-12-30] MEDS: ESCITALOPRAM 20 MG TAB PO SCH (08:27)
[2018-12-30] MEDS: CHOLESTYRAMINE (WITH SUGAR) 4 GM PACKET PO SCH (08:28)
[2018-12-30] MEDS: FUROSEMIDE 10 MG/ML 4 ML VIAL IV SCH (08:28)
[2018-12-30 10:15] LABS: Calcium 8.1 mg/dL (8.4-10.2); Magnesium 2.1 mg/dL (1.6-2.3); Potassium 4.6 mmol/L (3.5-5.1)
--- NOTE | 2018-12-30 12:50 | P.PN ---
Subjective Patient is seen in follow-up for acute kidney injury on chronic kidney disease. Patient has chronic kidney disease stage IV with baseline creatinine near 2.5. Creatinine peaked at 4.9 this admission and is stable at 3.24 today. She remains nonoliguric. She is awake and alert. Denies chest pain or shortness of breath. No vomiting or diarrhea. Patient underwent cystoscopy with bilateral ureteral stent exchange on December 17. Edema improving. Maintained on IV Lasix. Vital signs are stable. General: The patient appeared well nourished and normally developed. HEENT: Head exam is unremarkable. Neck is without jugular venous distension. LUNGS: Lungs are clear to auscultation and percussion. Breath sounds decreased. HEART: Rate and Rhythm are regular. First and second heart sounds normal. No murmurs, rubs or gallops. ABDOMEN: Abdominal exam reveals normal bowel sounds. Non-tender. EXTREMITITES: 1+ edema. Objective - Vital Signs Vital signs: Vital Signs Temp 98.3 F 12/30/18 07:00 Pulse 79 12/30/18 07:00 Resp 12 12/30/18 07:00 BP 98/58 12/30/18 07:00 Pulse Ox 96 12/30/18 07:00 Intake & Output 12/29/18 12/30/18 12/30/18 18:59 06:59 18:59 Intake Total 960 Output Total 800 1 Balance -800 -1 960 Weight 75.5 kg Intake: Oral 960 Output: Urine 800 1 Uretheral (King) 800 Other: Voiding Method Indwelling Catheter Indwelling Catheter # Voids 2 # Bowel Movements 1 - Labs CBC & Chem 7: 12/29/18 07:17 12/30/18 09:23 Labs: Abnormal Lab Results - Last 24 Hours (Table) 12/29/18 12/30/18 Range/Units 07:17 09:23 BUN 37 H (7-17) mg/dL Creatinine 3.24 H (0.52-1.04) mg/dL Calcium 8.1 L (8.4-10.2) mg/dL Magnesium 1.5 L (1.6-2.3) mg/dL Assessment and Plan Plan: Assessment: 1. Acute kidney injury secondary to obstructive uropathy. Creatinine peaked at 4.9 this admission and is stable at 3.24 today. 2. Bilateral hydronephrosis status post exchange of ureteral stents this admission. Urology following. 3. Hypernatremia secondary to lack of oral water intake. Better. 4. Hyperkalemia secondary to acute kidney injury and metabolic acidosis. Improved with medical management. 5. Anemia of chronic kidney disease. Maintained on Aranesp. Iron def noted. Status post 3 doses of IV iron. 6. UTI s/p antibiotics. 7. Chronic kidney disease stage IV secondary to obstructive uropathy. Baseline creatinine near 2.5. 8. Chronic hypotension maintained on midodrine. 9. Metabolic acidosis due to acute kidney injury maintained on oral sodium bicarbonate. Better. 10. Hypomagnesemia from poor oral intake. Improved post replacement. Plan: Continue lasix 40 mg IV BID - changed to 40 mg orally twice daily upon disch arge. Stable to be discharged from nephrology standpoint. Repeat BMP and magnesium level to 3 days postdischarge and follow up outpatient in the next 1-2 weeks.
--- NOTE | 2018-12-30 13:08 | PN ---
PROGRESS NOTE DATE OF SERVICE: 12/30/2018 REASON FOR FOLLOWUP: 1. Complicated UTI. 2. Antibiotic associated diarrhea. INTERVAL HISTORY: The patient was seen on rounds this morning. The patient is afebrile. She is breathing comfortably. Denies having any chest pain, cough. has been discontinued. Denies any burning or frequency and the diarrhea has slowed down. PHYSICAL EXAMINATION: On examination, blood pressure 98/58 with a pulse of 79, temperature is 98.3. She is 96% on 2 L nasal cannula. General description is an elderly female up in the bed in no distress. RESPIRATORY SYSTEM: Unlabored breathing, clear to auscultation anteriorly. HEART: S1, S2. Regular rate and rhythm. ABDOMEN: Soft, no tenderness. LABS: Creatinine 3.24. DIAGNOSTIC IMPRESSION AND PLAN: 1. Patient with complicated urinary tract infection with Morganella and Enterococcus faecalis has been adequately treated, currently off antibiotic for almost 5 days with no worsening symptoms. 2. Diarrhea antibiotic associated, did improve after discontinuation of antibiotic. Otherwise to continue with probiotic and yogurt intake. MMODL / IJN: [id number] /
--- NOTE | 2018-12-30 16:13 | P.GSCN ---
History of Present Illness Consult date: 12/30/18 Reason for Consult: ileus Requesting physician: Jena Cohen History of present illness: CHIEF COMPLAINT: Ileus HISTORY OF PRESENT ILLNESS: 68-year-old female who was admitted to the hospital secondary to acute urinary tract infection. Patient developed abdominal pain du ring hospitalization. Abdominal x-ray was completed on 12/29/2017 revealing scattered colonic and small bowel air-fluid levels. A couple small bowel loops are mildly dilated at 3.7 cm. Presence of colonic air favors a generalized ileus or enteritis rather than small bowel obstruction. Patient also underwent computed tomography scan abdomen and pelvis revealing normal bowel loops. Fecal debris present in the colon. Patient reports some left upper and lower abdominal pain. She reports eating an omelet this morning for breakfast. Denies nausea or vomiting. Reports having bowel movements. PAST MEDICAL HISTORY: See list. PAST SURGICAL HISTORY: See list. SOCIAL HISTORY: No illicit drug use. REVIEW OF SYSTEMS: CONSTITUTIONAL: Denies fever or chills. HEENT: Denies blurred vision, vision changes, or eye pain. Denies hemoptysis CARDIOVASCULAR: Denies chest pain or pressure. RESPIRATORY: No shortness of breath. GASTROINTESTINAL: Refer to [facility] for pertinent findings HEMATOLOGIC: Denies bleeding disorders. GENITOURINARY: Denies any blood in urine. SKIN: Denies pruitis. Denies rash. PHYSICAL EXAM: VITAL SIGNS: Reviewed. GENERAL: Well-developed in no acute distress. HEENT: No sclera icterus. Extraocular movements grossly intact. Moist buccal mucosa. Head is atraumatic, normocephalic. ABDOMEN: Soft. Nondistended. Tenderness to left upper and lower quadrant. No peritoneal signs. NEUROLOGIC: Alert and oriented. Cranial nerves II through XII grossly intact. ASSESSMENT: 1. Abdominal pain 2. Ileus PLAN: 1. Continue diet as tolerated 2. No surgical intervention recommended 3. Discharge per medicine. Nurse practitioner note has been reviewed by physician. Signing provider agrees with the documented findings, assessment, and plan of care. Past Medical History Past Medical History: Blood Disorder, Cancer, Deep Vein Thrombosis (DVT), GI Bleed, Liver Disease, Respiratory Disorder Additional Past Medical History / Comment(s): admit 07/27 for upper GI bleed. 7-3-15 admitted to [facility] with c/o blood in urine and rectal bleeding, DX GI BLEED AND UTI. other hx: Breast Ca x2; Skin Ca squamous and melanoma; uterine ca, lung cancer LOWER LEFT LOBE 70%, c-diff- 6-5-15 snd feb 2017, on xarelto for dvt and portal vein thrombosis. 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 Wound to BACK r/t lung CA, healed 6 months ago History of Any Multi-Drug Resistant Organisms: C-DIFF, MRSA Year Discovered:: 09/17/17 MDRO Source:: MRSA URINE Past Surgical History: Adenoidectomy, Appendectomy, Breast Surgery, Cholec ystectomy, Hysterectomy, Orthopedic Surgery, Tonsillectomy Additional Past Surgical History / Comment(s): Mastectomy bilateral; Left lower lobectomy 70%; exploratory laparotomy, LASER SX AT [facility] FOR MELANOMA- CURRENTLY HAS 100 SPOTS THAT THEY ARE WATCHING REMMOVED 4 SO FAR.lasik eye sx, past "abcess on back(ecoli) pt stated they had to open a channel,removed 2 ribs and some muscle and it was open to drain to 18 months". surgical repair to Right wrist, right femur, and right hip in 2018 Past Anesthesia/Blood Transfusion Reactions: No Reported Reaction Additional Past Anesthesia/Blood Transfusion Reaction / Comm: PAST BLOOD TRANSFUSIONS- NO COMPLICATIONS Past Psychological History: Depression Additional Psychological History / Comment(s): LOW DOSE LEXAPRO, CURRENTLY NO DEPRESSION, PT normally lives at home with her zeeshan, however currently patient resides at [facility] due to right arm and hip fractures . pt started she had just recently started working w/pt getting up w/walker and assistance and transfer w/assistance to w/c Smoking Status: Former smoker Past Alcohol Use History: None Reported Additional Past Alcohol Use History / Comment(s): STARTED SMOKING AT AGE 13, SMOKED 1 PPD SMOKED FOR 3 YEARS THEN CUT DOWN TO ONLY SMOKING WHEN OUT WITH FRIENDS.QUIT 1978. Past Drug Use History: None Reported - Past Family History Father Additional Family Medical History / Comment(s): FROM COMPLICATIONS OF SCHRAPNEL IN BODY Mother Additional Family Medical History / Comment(s): STOMACH PROBLEMS, EMPHYSEMA Medications and Allergies Home Medications Medication Instructions Recorded Confirmed Type Levothyroxine Sodium [Synthroid] 50 mcg PO DAILY@0600 07/04/17 12/03/18 History Escitalopram Oxalate [Lexapro] 20 mg PO DAILY 07/06/17 12/03/18 History Acetaminophen Tab [Tylenol] 650 mg PO Q6HR PRN tab 12/29/18 Rx Aspirin 325 mg PO DAILY tab 12/29/18 Rx Cholestyramine (with Sugar) 4 gm PO BID@0900,1400 packet 12/29/18 Rx [Questran Packet] Diphenox-Atrop 2.5-0.025 mg 1 each PO Q6HR PRN #12 tab 12/29/18 Rx [Lomotil] Epoetin Mike [Epogen] 4,000 unit SQ DIRECTED #1 vial 12/29/18 Rx Furosemide [Lasix] 40 mg PO BID #1 tablet 12/29/18 Rx Lactobacillus Acidoph & Bulgar 1 each PO BID packet 12/29/18 Rx [Lactinex] Lidocaine 5% Patch [Lidoderm 5% 1 patch TOPICAL HS patch 12/29/18 Rx Patch] Meclizine [Antivert] 12.5 mg PO TID PRN tab 12/29/18 Rx Midodrine [ProAmatine] 5 mg PO AC-TID tab 12/29/18 Rx Morphine Sulfate ER [Ms Contin] 15 mg PO Q12HR #6 tablet 12/29/18 Rx Nitroglycerin Sl Tabs [Nitrostat] 0.4 mg SUBLINGUAL Q5M PRN tab 12/29/18 Rx Pantoprazole [Protonix] 40 mg PO AC-BRKFST tablet. 12/29/18 Rx Sodium Bicarbonate Tab 650 mg PO BID tab 12/29/18 Rx Allergies Allergy/AdvReac Type Severity Reaction Status Date / Time VANESSA Inhibitors Allergy Unknown Verified 12/03/18 16:53 baclofen Allergy Confusion Verified 12/03/18 16:53 cefepime HCl [From Maxipime] Allergy Rash/Hives Verified 12/03/18 16:53 cephalexin Allergy Rash/Hives Verified 12/03/18 16:53 ciprofloxacin Allergy Rash/Hives Verified 12/03/18 16:53 clindamycin Allergy Nausea & Verified 12/03/18 16:53 Vomiting erythromycin base Allergy Rash/Hives Verified 12/03/18 16:53 heparin Allergy Unknown Verified 12/03/18 16:53 lisinopril [From Zestril] Allergy Unknown Verified 12/03/18 16:53 lorazepam [From Ativan] Allergy Confusion Verified 12/03/18 16:53 metronidazole [From Flagyl] Allergy Nausea & Verified 12/03/18 16:53 Vomiting penicillin G Allergy Rash/Hives Verified 12/03/18 16:53 shellfish derived [Shellfish] Allergy Swelling Verified 12/03/18 16:53 Sulfa (Sulfonamide Allergy Swelling Verified 12/03/18 16:53 Antibiotics) steroids Allergy Unknown Uncoded 12/03/18 15:07 Surgical - Exam Vital Signs Temp Pulse Resp BP Pulse Ox 97.9 F 179 H 16 63/47 100 12/03/18 15:00 12/03/18 15:00 12/03/18 15:00 12/03/18 15:00 12/03/18 15:00 Results - Labs 12/29/18 07:17 12/30/18 09:23 Abnormal Lab Results - Last 24 Hours (Table) 12/30/18 Range/Units 09:23 BUN 37 H (7-17) mg/dL Creatinine 3.24 H (0.52-1.04) mg/dL Calcium 8.1 L (8.4-10.2) mg/dL Diabetes panel 12/30/18 Range/Units 09:23 Sodium 142 (137-145) mmol/L Potassium 4.6 (3.5-5.1) mmol/L Chloride 107 (98-107) mmol/L Carbon Dioxide 28 (22-30) mmol/L BUN 37 H (7-17) mg/dL Creatinine 3.24 H (0.52-1.04) mg/dL Glucose 98 (74-99) mg/dL Calcium 8.1 L (8.4-10.2) mg/dL Calcium panel 12/30/18 Range/Units 09:23 Calcium 8.1 L (8.4-10.2) mg/dL Pituitary panel 12/30/18 Range/Units 09:23 Sodium 142 (137-145) mmol/L Potassium 4.6 (3.5-5.1) mmol/L Chloride 107 (98-107) mmol/L Carbon Dioxide 28 (22-30) mmol/L BUN 37 H (7-17) mg/dL Creatinine 3.24 H (0.52-1.04) mg/dL Glucose 98 (74-99) mg/dL Calcium 8.1 L (8.4-10.2) mg/dL Adrenal panel 12/30/18 Range/Units 09:23 Sodium 142 (137-145) mmol/L Potassium 4.6 (3.5-5.1) mmol/L Chloride 107 (98-107) mmol/L Carbon Dioxide 28 (22-30) mmol/L BUN 37 H (7-17) mg/dL Creatinine 3.24 H (0.52-1.04) mg/dL Glucose 98 (74-99) mg/dL Calcium 8.1 L (8.4-10.2) mg/dL
== END 2018-12-30 12:00 | DRG 853 ==
LOC: EC 14:55 → 3SCARD 19:02 → 4SSUR 12-08 22:15
PROVIDERS: ADMIT Family Medicine; ATTEND Family Medicine
PROC: 0T788DZ Dilation of Bilateral Ureters with Intraluminal Device, Via Natural or Artificial Opening Endoscopic (ICD-10-PCS; 2018-12-17)
PROC: 0TP98DZ Removal of Intraluminal Device from Ureter, Via Natural or Artificial Opening Endoscopic (ICD-10-PCS; principal; 2018-12-17 10:15)
PROC: 02HV33Z Insertion of Infusion Device into Superior Vena Cava, Percutaneous Approach (ICD-10-PCS; 2018-12-18)
DX: A41.81 Sepsis due to Enterococcus (principal); N17.0 Acute kidney failure with tubular necrosis; N13.6 Pyonephrosis; C34.32 Malignant neoplasm of lower lobe, left bronchus or lung; D68.51 Activated protein C resistance; E44.0 Moderate protein-calorie malnutrition; E87.0 Hyperosmolality and hypernatremia; E87.1 Hypo-osmolality and hyponatremia; E87.2 Acidosis; I47.1 Supraventricular tachycardia; J98.11 Atelectasis; K52.1 Toxic gastroenteritis and colitis; K56.7 Ileus, unspecified; M48.54XA Collapsed vertebra, not elsewhere classified, thoracic region, initial encounter for fracture; N18.4 Chronic kidney disease, stage 4 (severe); N20.2 Calculus of kidney with calculus of ureter; R18.8 Other ascites; T83.85XA Stenosis due to genitourinary prosthetic devices, implants and grafts, initial encounter; A41.59 Other Gram-negative sepsis; R65.20 Severe sepsis without septic shock; B96.4 Proteus (mirabilis) (morganii) as the cause of diseases classified elsewhere; B96.89 Other specified bacterial agents as the cause of diseases classified elsewhere; Z87.891 Personal history of nicotine dependence; Z85.42 Personal history of malignant neoplasm of other parts of uterus; Z85.3 Personal history of malignant neoplasm of breast; Z85.820 Personal history of malignant melanoma of skin; Z85.828 Personal history of other malignant neoplasm of skin; D50.9 Iron deficiency anemia, unspecified; D63.1 Anemia in chronic kidney disease; E03.9 Hypothyroidism, unspecified; E83.42 Hypomagnesemia; E86.0 Dehydration; E87.5 Hyperkalemia; E87.70 Fluid overload, unspecified; G62.9 Polyneuropathy, unspecified; I12.9 Hypertensive chronic kidney disease with stage 1 through stage 4 chronic kidney disease, or unspecified chronic kidney disease; I89.0 Lymphedema, not elsewhere classified; I95.89 Other hypotension; K21.9 Gastro-esophageal reflux disease without esophagitis; T36.95XA Adverse effect of unspecified systemic antibiotic, initial encounter; K74.60 Unspecified cirrhosis of liver; Y84.2 Radiological procedure and radiotherapy as the cause of abnormal reaction of the patient, or of later complication, without mention of misadventure at the time of the procedure; Z79.2 Long term (current) use of antibiotics; Z79.82 Long term (current) use of aspirin; Z79.890 Hormone replacement therapy; Z79.899 Other long term (current) drug therapy; Z82.5 Family history of asthma and other chronic lower respiratory diseases; Z86.19 Personal history of other infectious and parasitic diseases; Z86.718 Personal history of other venous thrombosis and embolism; Z87.440 Personal history of urinary (tract) infections; Z87.442 Personal history of urinary calculi; Z88.1 Allergy status to other antibiotic agents; Z90.13 Acquired absence of bilateral breasts and nipples; Z90.49 Acquired absence of other specified parts of digestive tract; Z90.710 Acquired absence of both cervix and uterus; Z92.3 Personal history of irradiation; Z87.19 Personal history of other diseases of the digestive system; Z68.22 Body mass index [BMI] 22.0-22.9, adult; Z88.2 Allergy status to sulfonamides; Z88.8 Allergy status to other drugs, medicaments and biological substances; Z88.0 Allergy status to penicillin; Z91.013 Allergy to seafood; R26.9 Unspecified abnormalities of gait and mobility; R79.89 Other specified abnormal findings of blood chemistry; R42 Dizziness and giddiness; F32.9 Major depressive disorder, single episode, unspecified
CPT/HCPCS: 36415; 36556; 36573; 51701; 71045; 71250; 74019; 74176; 74430; 76700; 76770; 80048; 80053; 80061; 81001; 82550; 82553; 82728; 83540; 83550; 83605; 83735; 83880; 84100; 84132; 84443; 84484; 85025; 85027; 85610; 85730; 86850; 86900; 86901; 87077; 87086; 87186; 87324; 93005; 93306; 94760; 96361; 96374; 99291

== ENCOUNTER 2019-01-21 16:39 | Inpatient (IN) | payer MEDICARE, OTHER ==
[2019-01-21] MEDS ORDERED: SODIUM CHLORIDE 0.9% 500 ML 500 ML IV STA (16:49)
--- NOTE | 2019-01-21 17:03 | ED ---
General Adult HPI - General Chief complaint: Recheck/Abnormal Lab/Rx Stated complaint: Renal failure Time Seen by Provider: 01/21/19 16:48 Source: patient, EMS Mode of arrival: EMS Limitations: no limitations - History of Present Illness Initial comments: Dictation was produced using [employer] dictation software. please excuse any grammatical, word or spelling errors. Chief Complaint: 68-year-old female past history of chronic kidney disease, PICC line placement for antibiotics to treat urinary tract infection. History of Present Illness: 68-year-old female she was brought in by EMS from [facility]. Patient had surveillance labs performed today and shows that patient has worsening kidney function. Patient currently is being treated with IV antibiotics via PICC line placement for urinary tract infection. Patient has known history of chronic kidney disease. She had laboratory evaluation drawn today. Patient was measured creatinine of 3.37 and glomerular filtration rate of 13. Patient states she also has abdominal pain that has been ongoing for 3 weeks. States that her symptoms are constant and dull. Symptoms are worse with palpation. No radiation. She denies nausea, diarrhea. The ROS documented in this emergency department record has been reviewed and confirmed by me. Those systems with pertinent positive or negative responses have been documented in the HPI. All other systems are other negative and/or noncontributory. PHYSICAL EXAM: General Impression: Alert and oriented x3, not in acute distress HEENT: Normocephalic atraumatic, extra-ocular movements intact, pupils equal and reactive to light bilaterally, mucous membranes moist. Cardiovascular: Heart regular rate and rhythm, S1&S2 audible, no murmurs, rubs or gallops Chest: Lungs clear to auscultation bilaterally, no rhonchi, no wheeze, no rales Abdomen: Bowel sounds present, if he is abdominal tenderness worse in the left abdominal area Musculoskeletal: Pulses present and equal in all extremities, no peripheral floresita a Motor: no focal deficits noted Neurological: CN II-XII grossly intact, no focal motor or sensory deficits noted Skin: Intact with no visualized rashes, PICC line to the right biceps region, PICC line site is clean dry and intact Psych: Normal affect and mood ED course: 68-year-old female sent in from [facility] for worsening kidney function. She has known history of chronic kidney disease. She was sent here today because she is open to the idea to be evaluated for possible initia tion of hemodialysis. All signs upon arrival shows blood pressure 83/55, Blood pressure stable. With systolics measured in the 99th upon repeat. Laboratory evaluation obtained. CBC unremarkable. Metabolic panel shows creatinine 3.7. This appears to have been worsening over the last couple weeks. Urinalysis shows 3+ ketones. Patient given intravenous fluids. Computed tomography scan of the abdomen and pelvis was obtained given the patient was also complaining of abdominal pain that's worsening. CT shows ileus. Discussed patient case with Dr. Kirt Collado told to accept patients care. Nephrology on consult. Patient given intravenous fluids. Patient will be admitted to the hospital. EKG interpretation: Ventricular rate 67, normal sinus rhythm, WI interval 140, Q's 80, QTc 467. No WI prolongation, no QTC prolongation, no ST or T-wave changes noted. . Overall, this EKG is unremarkable - Related Data Home Medications Medication Instructions Recorded Confirmed Levothyroxine Sodium [Synthroid] 50 mcg PO DAILY@0600 07/04/17 12/03/18 Escitalopram Oxalate [Lexapro] 20 mg PO DAILY 07/06/17 12/03/18 Previous Rx's Medication Instructions Recorded Acetaminophen Tab [Tylenol] 650 mg PO Q6HR PRN tab 12/29/18 Aspirin 325 mg PO DAILY tab 12/29/18 Cholestyramine (with Sugar) 4 gm PO BID@0900,1400 packet 12/29/18 [Questran Packet] Diphenox-Atrop 2.5-0.025 mg 1 each PO Q6HR PRN #12 tab 12/29/18 [Lomotil] Epoetin Mike [Epogen] 4,000 unit SQ DIRECTED #1 vial 12/29/18 Furosemide [Lasix] 40 mg PO BID #1 tablet 12/29/18 Lactobacillus Acidoph & Bulgar 1 each PO BID packet 12/29/18 [Lactinex] Lidocaine 5% Patch [Lidoderm 5% 1 patch TOPICAL HS patch 12/29/18 Patch] Meclizine [Antivert] 12.5 mg PO TID PRN tab 12/29/18 Midodrine [ProAmatine] 5 mg PO AC-TID tab 12/29/18 Morphine Sulfate ER [Ms Contin] 15 mg PO Q12HR #6 tablet 12/29/18 Nitroglycerin Sl Tabs [Nitrostat] 0.4 mg SUBLINGUAL Q5M PRN tab 12/29/18 Pantoprazole [Protonix] 40 mg PO AC-BRKFST tablet. 12/29/18 Sodium Bicarbonate Tab 650 mg PO BID tab 12/29/18 Allergies Allergy/AdvReac Type Severity Reaction Status Date / Time VANESSA Inhibitors Allergy Unknown Verified 12/03/18 16:53 baclofen Allergy Confusion Verified 12/03/18 16:53 cefepime HCl [From Maxipime] Allergy Rash/Hives Verified 12/03/18 16:53 cephalexin Allergy Rash/Hives Verified 12/03/18 16:53 ciprofloxacin Allergy Rash/Hives Verified 12/03/18 16:53 clindamycin Allergy Nausea & Verified 12/03/18 16:53 Vomiting erythromycin base Allergy Rash/Hives Verified 12/03/18 16:53 heparin Allergy Unknown Verified 12/03/18 16:53 lisinopril [From Zestril] Allergy Unknown Verified 12/03/18 16:53 lorazepam [From Ativan] Allergy Confusion Verified 12/03/18 16:53 metronidazole [From Flagyl] Allergy Nausea & Verified 12/03/18 16:53 Vomiting penicillin G Allergy Rash/Hives Verified 12/03/18 16:53 shellfish derived [Shellfish] Allergy Swelling Verified 12/03/18 16:53 Sulfa (Sulfonamide Allergy Swelling Verified 12/03/18 16:53 Antibiotics) steroids Allergy Unknown Uncoded 12/03/18 15:07 Review of Systems ROS Statement: Those systems with pertinent positive or pertinent negative responses have been documented in the HPI. ROS Other: All systems not noted in ROS Statement are negative. Past Medical History Past Medical History: Blood Disorder, Cancer, Deep Vein Thrombosis (DVT), GI Bleed, Liver Disease, Respiratory Disorder Additional Past Medical History / Comment(s): admit 07/27 for upper GI bleed. 7-3-15 admitted to [facility] with c/o blood in urine and rectal bleeding, DX GI BLEED AND UTI. other hx: Breast Ca x2; Skin Ca squamous and melanoma; uterine ca, lung cancer LOWER LEFT LOBE 70%, c-diff- 6-5-15 snd feb 2017, on xarelto for dvt and portal vein thrombosis. 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 Wound to BACK r/t lung CA, healed 6 months ago History of Any Multi-Drug Resistant Organisms: C-DIFF, MRSA Date of last positivie culture/infection: 09/17/17 MDRO Source:: MRSA URINE Past Surgical History: Adenoidectomy, Appendectomy, Breast Surgery, Cholecystectomy, Hysterectomy, Orthopedic Surgery, Tonsillectomy Additional Past Surgical History / Comment(s): Mastectomy bilateral; Left lower lobectomy 70%; exploratory laparotomy, [facility]ELANOMA- CURRENTLY HAS 100 SPOTS THAT THEY ARE WATCHING REMMOVED 4 SO FAR.lasik eye sx, past "abcess on back(ecoli) pt stated they had to open a channel,removed 2 ribs and some muscle and it was open to drain to 18 months". surgical repair to Right wrist, right femur, and right hip in 2018 Past Anesthesia/Blood Transfusion Reactions: No Reported Reaction Additional Past Anesthesia/Blood Transfusion Reaction / Comment(s): PAST BLOOD TRANSFUSIONS- NO COMPLICATIONS Past Psychological History: Depression Additional Psychological History / Comment(s): LOW DOSE LEXAPRO, CURRENTLY NO DEPRESSION, PT normally lives at home with her zeeshan, however currently patient resides at [facility] due to right arm and hip fractures . pt started she had just recently started working w/pt getting up w/walker and assistance and transfer w/assistance to w/c Smoking Status: Former smoker Past Alcohol Use History: None Reported Additional Past Alcohol Use History / Comment(s): STARTED SMOKING AT AGE 13, SMOKED 1 PPD SMOKED FOR 3 YEARS THEN CUT DOWN TO ONLY SMOKING WHEN OUT WITH FRIENDS.QUIT 1978. Past Drug Use History: None Reported - Past Family History Father Additional Family Medical History / Comment(s): FROM COMPLICATIONS OF CHAVA RAPNEL IN BODY Mother Additional Family Medical History / Comment(s): STOMACH PROBLEMS, EMPHYSEMA General Exam Limitations: no limitations Course Vital Signs 01/21/19 16:48 Temperature 97.8 F Pulse Rate 68 Respiratory 16 Rate Blood Pressure 83/55 O2 Sat by Pulse 100 Oximetry Medical Decision Making - Lab Data Result diagrams: 01/21/19 17:00 01/21/19 17:00 Lab Results 01/21/19 01/21/19 01/21/19 Range/Units 17:00 17:00 17:00 WBC 4.3 (3.8-10.6) k/uL RBC 3.71 L (3.80-5.40) m/uL Hgb 10.1 L (11.4-16.0) gm/dL Hct 33.3 L (34.0-46.0) % MCV 89.7 (80.0-100.0) fL MCH 27.2 (25.0-35.0) pg MCHC 30.3 L (31.0-37.0) g/dL RDW 16.6 H (11.5-15.5) % Plt Count 236 (150-450) k/uL Neutrophils % (Manual) 78 % Lymphocytes % (Manual) 15 % Monocytes % (Manual) 4 % Eosinophils % (Manual) 3 % Neutrophils # (Manual) 3.35 (1.3-7.7) k/uL Lymphocytes # (Manual) 0.65 L (1.0-4.8) k/uL Monocytes # (Manual) 0.17 (0-1.0) k/uL Eosinophils # (Manual) 0.13 (0-0.7) k/uL Nucleated RBCs 0 (0-0) /100 WBC Manual Slide Review Performed Polychromasia Present Hypochromasia Marked Anisocytosis Slight Anisocytosis (manual) Present Sodium 140 (137-145) mmol/L Potassium 4.6 (3.5-5.1) mmol/L Chloride 107 (98-107) mmol/L Carbon Dioxide 24 (22-30) mmol/L Anion Gap 9 mmol/L BUN 60 H (7-17) mg/dL Creatinine 3.73 H (0.52-1.04) mg/dL Est GFR (CKD-EPI)AfAm 13 (>60 ml/min/1.73 sqM) Est GFR (CKD-EPI)NonAf 12 (>60 ml/min/1.73 sqM) Glucose 105 H (74-99) mg/dL Calcium 7.9 L (8.4-10.2) mg/dL Magnesium 1.7 (1.6-2.3) mg/dL Total Bilirubin 0.2 (0.2-1.3) mg/dL AST 30 (14-36) U/L ALT 20 (9-52) U/L Alkaline Phosphatase 411 H (38-126) U/L Total Protein 6.6 (6.3-8.2) g/dL Albumin 2.6 L (3.5-5.0) g/dL Lipase 27 (23-300) U/L Urine Color Yellow Urine Appearance Clear (Clear) Urine pH 6.0 (5.0-8.0) Ur Specific [place] 1.025 (1.001-1.035) Urine Protein Trace H (Negative) Urine Glucose (UA) Negative (Negative) Urine Ketones 3+ H (Negative) Urine Blood Negative (Negative) Urine Nitrite Negative (Negative) Urine Bilirubin Negative (Negative) Urine Urobilinogen <2.0 (<2.0) mg/dL Ur Leukocyte Esterase Negative (Negative) Disposition Clinical Impression: Renal failure Disposition: ADMITTED IP TO THIS HOSP Condition: Fair Referrals: Miles Collado MD [Primary Care Provider] - 1-2 days Decision Time: 18:04
[2019-01-21 17:21] LABS: Albumin 2.6 g/dL (3.5-5.0); Calcium 7.9 mg/dL (8.4-10.2); Magnesium 1.7 mg/dL (1.6-2.3); Potassium 4.6 mmol/L (3.5-5.1); Total Bilirubin 0.2 mg/dL (0.2-1.3); Total Protein 6.6 g/dL (6.3-8.2)
[2019-01-21 17:28] LABS: Appearance,Urine Clear (Clear); Bilirubin,Urine Negative (Negative); Blood,Urine Negative (Negative); Color,Urine Yellow; Glucose,Urine (UA) Negative (Negative); Ketones,Urine 3+ (Negative); Leukocyte Esterase,Urine Negative (Negative); Nitrite,Urine Negative (Negative); Protein,Urine Trace (Negative); Specific Gravity,Urine 1.025 (1.001-1.035); Urobilinogen,Urine <2.0 mg/dL (<2.0)
[2019-01-21 17:35] LABS: Anisocytosis Slight; HCT 33.3 % (34.0-46.0); HGB 10.1 gm/dL (11.4-16.0); Hypochromasia Marked; MCH 27.2 pg (25.0-35.0); MCHC 30.3 g/dL (31.0-37.0); MCV 89.7 fL (80.0-100.0); Mean Platelet Volume 6.4; Platelet Count 236 k/uL (150-450); RBC 3.71 m/uL (3.80-5.40); RDW 16.6 % (11.5-15.5); WBC 4.3 k/uL (3.8-10.6)
--- NOTE | 2019-01-21 17:40 | CT ---
EXAMINATION TYPE: CT abdomen pelvis wo con DATE OF EXAM: 01/21/2019 COMPARISON: 12/29/2018 HISTORY: abdominal pain CT DLP: 579.7 mGycm Automated exposure control for dose reduction was used. TECHNIQUE: Helical acquisition of images was performed from the lung bases through the pelvis. FINDINGS: There are bilateral pleural effusions. There is bilateral basilar pulmonary infiltrate and atelectasi s. There is small pericardial effusion. Heart is slightly enlarged. There is right breast implant. There is abdominal ascites with fluid around the liver and also in the paracolic gutter. There is mil d free fluid in the pelvis. There is King catheter in the urinary bladder. There is right hip nailin g. There are bilateral ureteral stents. Stents appear in good position. There is no hydronephrosis. Liver shows no focal defect. The bile ducts are not dilated. There is no sign of pancreatic mass. The stomach is intact. Spleen appears intact. There is no adrenal mass. There is some cortical thinning in the left kidney. There is no evidence of a renal mass. There is no sign of a bowel obstruction. Th ere are multiple small bowel fluid levels with air. This is more likely related to ileus. Small bowel measures up to 3 cm. There is mild subcutaneous edema around the abdomen. Lumbar spine appears intact. There is anterior wedging of T10 vertebra up to 35%. The bony pelvis is intact. IMPRESSION: BILATERAL PLEURAL EFFUSIONS WITH BASILAR PULMONARY INFILTRATES AND ATELECTASIS. THIS COULD RELATE TO SOME CONGESTIVE HEART FAILURE. THERE IS ABDOMINAL ASCITES. THERE IS SUBCUTANEOUS EDEMA AROUND THE ABD OMEN ALSO COULD BE SECONDARY TO HEART FAILURE. LEFT RENAL ATROPHY. NO RENAL OBSTRUCTION. SMALL BOWEL ILEUS. There is significant improvement in the hydronephrosis compared to last exam. There is no significant change in the thoracic and abdominal fl uid. Small bowel ileus increased compared to last exam.
[2019-01-21 17:58] LABS: Anisocytosis (M) Present; Eosinophils # (M) 0.13 k/uL (0-0.7); Lymphocytes # (M) 0.65 k/uL (1.0-4.8); Monocytes # (M) 0.17 k/uL (0-1.0); Neutrophils # (M) 3.35 k/uL (1.3-7.7); Neutrophils % (M) 78 %; Nucleated Red Blood Cells 0 /100 WBC (0-0); Polychromasia Present; Total Cells Counted 100
[2019-01-21] MEDS ORDERED: NALOXONE 0.4 MG/ML 1 ML VIAL IV PRN (18:04)
[2019-01-21] MEDS ORDERED: ONDANSETRON 4 MG/2 ML VIAL IVP PRN (18:04)
[2019-01-21] MEDS: SODIUM CHLORIDE 0.9% 1,000 ML IV SCH (20:37)
[2019-01-21] MEDS ORDERED: DIPHENOX-ATROP 2.5-0.025 MG 1 EACH TAB PO PRN (21:25)
[2019-01-21] MEDS ORDERED: MORPHINE SULFATE ER 15 MG TABLET PO PRN (21:25)
[2019-01-21] MEDS ORDERED: MAGNESIUM HYDROXIDE 2,400 MG/10 ML CUP PO PRN (21:25)
[2019-01-21] MEDS ORDERED: NITROGLYCERIN SL TABS 0.4 MG TAB SUBLINGUAL PRN (21:25)
[2019-01-21] MEDS ORDERED: BISACODYL 10 MG SUPP RECTAL PRN (21:25)
[2019-01-21] MEDS ORDERED: ONDANSETRON 4 MG TAB PO PRN (21:25)
[2019-01-21] MEDS ORDERED: MECLIZINE 12.5 MG TAB PO PRN (21:25)
[2019-01-21] MEDS ORDERED: NA PHOS,M-B/NA PHOS,DI-BA 133 ML ENEMA RECTAL PRN (22:00)
[2019-01-21] MEDS: LIDOCAINE 5% PATCH TOPICAL SCH (23:48)
[2019-01-22] MEDS: LACTOBACILLUS ACIDOPH & BULGAR 1 EACH PACKET PO SCH ×3 (00:03→21:04)
[2019-01-22] MEDS: TAMSULOSIN 0.4 MG CAP.ER.24H PO SCH ×2 (00:03→21:05)
[2019-01-22] MEDS: SODIUM BICARBONATE TAB 650 MG TAB PO SCH ×3 (00:03→21:05)
[2019-01-22] MEDS: FUROSEMIDE 40 MG TAB PO SCH ×2 (00:03→10:03)
[2019-01-22] MEDS: LEVOTHYROXINE 50 MCG TAB PO SCH (06:24)
[2019-01-22] MEDS ORDERED: MIDODRINE 5 MG TAB PO SCH (07:30)
[2019-01-22] MEDS: PANTOPRAZOLE 40 MG TABLET PO SCH (08:59)
[2019-01-22] MEDS: CHOLESTYRAMINE (WITH SUGAR) 4 GM PACKET PO SCH ×2 (08:59→17:58)
[2019-01-22] MEDS: METOPROLOL TARTRATE 25 MG TAB PO SCH (09:00)
[2019-01-22] MEDS: SODIUM CHLORIDE 0.9% 1,000 ML IV SCH ×3 (09:00→21:07)
[2019-01-22] MEDS: ESCITALOPRAM 20 MG TAB PO SCH (09:00)
--- NOTE | 2019-01-22 09:44 | HP ---
HISTORY AND PHYSICAL SUBJECTIVE: Cnnxunh-[id number]-yme white female with history of chronic kidney disease, PICC line, IV antibiotics to treat urinary tract infection, known chronic kidney disease. Creatinine is 3.37, GFR 13. REVIEW OF SYSTEMS: Fourteen-point review of systems negative except for as mentioned in HPI. She is admitted due to worsening renal function. PHYSICAL EXAMINATION: HEENT: Normocephalic, atraumatic. CARDIOVASCULAR: S1, S2. LUNGS: Clear. ABDOMEN: Soft, nontender. MUSCULOSKELETAL: Full range of motion. NEURO: Cranial nerves are intact. PSYCH: Fair mood and affect. Blood pressure is low 83/55. She was recently increased on midodrine to 10 t.i.d. Creatinine is slowly increasing at 3.7. She has been treated with for 2 weeks for drug-resistant UTI. CAT scan shows ileus. ASSESSMENT: 1. Ileus. 2. Drug-resistant urinary tract infection. 3. Worsening renal function. 4. Status post nephrology ureteral stent tubes. May need further stent tubes placed. Urology will be consulted. 5. Orthostatic hypotension, possibly some prerenal renal failure and dehydration. EKG was reviewed. Continue home medications. Follow up in next 24 to 48 hours. MMODL / IJN: [id number] /
[2019-01-22 11:07] LABS: Anisocytosis Slight; Basophils # (A) 0.1 k/uL (0-0.2); Basophils % (A) 2 %; Eosinophils # (A) 0.1 k/uL (0-0.7); Eosinophils % (A) 3 %; HCT 31.2 % (34.0-46.0); Hypochromasia Marked; Lymphocytes # (A) 0.7 k/uL (1.0-4.8); Lymphocytes % (A) 21 %; MCH 26.2 pg (25.0-35.0); MCHC 28.9 g/dL (31.0-37.0); MCV 90.4 fL (80.0-100.0); Mean Platelet Volume 7.1; Monocytes # (A) 0.3 k/uL (0-1.0); Monocytes % (A) 9 %; Neutrophils % (A) 62 %; Platelet Count 230 k/uL (150-450); RBC 3.45 m/uL (3.80-5.40); WBC 3.2 k/uL (3.8-10.6)
[2019-01-22 11:20] LABS: Potassium 4.4 mmol/L (3.5-5.1)
[2019-01-22 11:22] LABS: Albumin 2.3 g/dL (3.5-5.0); Calcium 7.6 mg/dL (8.4-10.2); Total Bilirubin 0.2 mg/dL (0.2-1.3); Total Protein 5.9 g/dL (6.3-8.2)
[2019-01-22] MEDS ORDERED: SODIUM CHLORIDE 0.9% 500 ML 500 ML IV ONE (12:28)
[2019-01-22] MEDS: MIDODRINE 5 MG TAB PO SCH ×2 (12:34→17:58)
[2019-01-22] MEDS: ACETAMINOPHEN TAB 325 MG TAB PO PRN (13:30)
[2019-01-22 15:48] VITALS: BMI 22.3
--- NOTE | 2019-01-22 16:55 | XR ---
EXAMINATION TYPE: XR chest 1V portable DATE OF EXAM: 01/22/2019 COMPARISON: 12/23/2018 HISTORY: Lung cancer. TECHNIQUE: Single frontal view of the chest is obtained. FINDINGS: There is some blunting of both costophrenic angles. There are surgical clips at the left p ulmonary hilum. There is no heart failure. IMPRESSION: Bilateral pleural effusions improved on the right side and not significantly different o n the left side compared to last exam. No heart failure seen. Coarse lung markings at both lung bases unchanged.
[2019-01-22] MEDS: ASPIRIN 325 MG TAB PO SCH (17:58)
[2019-01-22] MEDS: METOPROLOL TARTRATE 12.5 MG TAB PO SCH (21:05)
--- NOTE | 2019-01-22 22:21 | CONS ---
CONSULTATION REASON FOR CONSULT: Renal failure. HISTORY OF PRESENT ILLNESS: Patient is a 68-year-old female with history of chronic kidney disease, NKF stage III to IV, with baseline creatinine most recently of about 2.6 to 3 mg/dL as of 01/05/2019 secondary to obstructive uropathy, nephrolithiasis with history of bilateral ureteral stents. Patient had a ureteral stent exchange done on 12/17/[address] Contreras. Patient was admitted to the hospital with hypotension and weakness. Her blood pressure was as low as 70s to 80s mmHg systolic prior to admission. Patient denies any nausea, vomiting, abdominal pain or diarrhea. She states she has had good urine output. Patient has an indwelling King catheter. Urine output charted is about 350 mL. PAST MEDICAL HISTORY: 1. CKD, stage IV. 2. Bilateral ureteral stents for obstructive uropathy with history of right renal atrophy. 3. History of UTI. 4. History of DVT. 5. GI bleed. 6. Uterine cancer, status post hysterectomy. 7. History of breast cancer, status post mastectomy. 8. Melanoma, status post resection. 9. Previous history of C difficile colitis. 10.History of GI bleed. PAST SURGICAL HISTORY: 1. Adenoidectomy. 2. Appendectomy. 3. Cholecystectomy. 4. Explorative laparotomy. 5. Left lower lung lobectomy. 6. Orthopedic surgery. 7. Hysterectomy. 8. Mastectomy. 9. Tonsillectomy. 10.Ureteral stent exchange. SOCIAL HISTORY: Patient is a former smoker. No history of drug abuse or alcohol abuse. MEDICATIONS: Medications prior to admission included: 1. Zofran. 2. Nitrostat. 3. MS Contin. 4. Milk of Magnesia. 5. Dulcolax. 6. Tylenol. 7. Antivert. 8. Midodrine. 9. Lasix. 10.Protonix. 11.Synthroid. 12.Metoprolol. 13.Lidoderm. 14.Lexapro. 15.Flomax. 16.Epogen. 17.Aspirin. PHYSICAL EXAMINATION: Patient is currently comfortable, awake, not in any acute distress. Blood pressure this morning was 92/51. Earlier it was 74/39, heart rate 65 per minute. Patient is afebrile. EXAMINATION OF THE HEART: S1 and S2. EXAMINATION OF LUNGS: Bilateral breath sounds are heard. ABDOMEN: Soft, non-tender. Examination of lower extremities shows chronic skin changes. Trace edema noted bilaterally. [employer] (EX ) exam is grossly intact. LABS: Hemoglobin 9.0, sodium 141, potassium 4.4, BUN 57, creatinine 3.59. UA shows 3+ ketones, trace protein. ASSESSMENT: 1. Acute kidney injury associated with hypotension, hypoperfusion, currently slightly improved. We will re-bolus with IV fluids. Agree with increasing the midodrine. Doubt any significant obstructive uropathy; however, patient does have right renal atrophy with most of the function from her left kidney. She recently had stent exchange done on 12/17/[address] scan from this admission shows improvement in the hydronephrosis. 2. Left renal atrophy. 3. Hypotension, possibly volume depletion. Agree with fluid bolus. Increase midodrine. Hold Lopressor for systolic blood pressure less than 100. No clear evidence of significant sepsis. Check chest x-ray. Hold off on the Lasix for now. Repeat labs in a.m. 4. Anemia of chronic disease, maintained on Aranesp. Thank you for this consultation. Will continue to follow the patient with you during her hospitalization. MMODL / IJN: [id number] /
[2019-01-22] MEDS: LIDOCAINE 5% PATCH TOPICAL SCH (22:45)
[2019-01-23] MEDS: LEVOTHYROXINE 50 MCG TAB PO SCH (06:02)
[2019-01-23] MEDS: ESCITALOPRAM 20 MG TAB PO SCH (08:12)
[2019-01-23] MEDS: CHOLESTYRAMINE (WITH SUGAR) 4 GM PACKET PO SCH ×2 (08:13→17:22)
[2019-01-23] MEDS: PANTOPRAZOLE 40 MG TABLET PO SCH (08:13)
[2019-01-23] MEDS: METOPROLOL TARTRATE 25 MG TAB PO SCH (08:13)
[2019-01-23] MEDS: MIDODRINE 5 MG TAB PO SCH ×3 (08:13→17:22)
[2019-01-23] MEDS: SODIUM BICARBONATE TAB 650 MG TAB PO SCH ×2 (08:13→21:29)
[2019-01-23] MEDS: LACTOBACILLUS ACIDOPH & BULGAR 1 EACH PACKET PO SCH ×2 (08:13→21:29)
--- NOTE | 2019-01-23 08:14 | P.CONS ---
History of Present Illness - Reason for Consult Consult date: 01/22/19 Urinary tract infection Requesting physician: iMles Collado - Chief Complaint Abnormal labs - History of Present Illness Patient is a 68-year-old female who recently did have a prolonged stay at this hospital with the patient was treated for complicated urinary tract infection secondary to Enterococcus faecalis and Morganella, the patient received about 3 weeks of IV antibiotics and the patient ureteral stent was changed by urology the patient antibiotic were discontinued around 12/26/2018 and no IV antibiotic were recommended on discharge that was 12/30/2018, the patient was supposed to be discontinued before discharge patient is now sent back to [facility] after she was noticed to have elevated creatinine of 3.37 on routine blood draw that was done at [facility] with a previous creatinine about 2.6 patient noticed to have a PICC line however it is not clear if it is the same PICC line that she has in December on one has been subsequently placed over antibiotic if any she was getting at the [facility] I was asked to see the patient regarding urinary tract infection patient is currently afebrile patient denies having any chest pain or shortness of breath or cough becoming of some pain to the left lower abdominal area recently have been chronic for no recent worsening intensity about 3-4 out of 10 and no radiation denies any burning or frequency of urine today complaining of diarrhea with about 2-3 loose stools per day no blood or mucus in the stool patient did have a normal white count on admission and no fever and a UA has been negative Review of Systems Positive point has been mentioned in the HPI rest of the systems are negative Past Medical History Past Medical History: Blood Disorder, Cancer, Deep Vein Thrombosis (DVT), GI Bleed, Liver Disease, Respiratory Disorder Additional Past Medical History / Comment(s): admit 07/27 for upper GI bleed. 7-3-15 admitted to [facility] with c/o blood in urine and rectal bleeding, DX GI BLEED AND UTI. other hx: Breast Ca x2; Skin Ca squamous and melanoma; uterine ca, lung cancer LOWER LEFT LOBE 70%, c-diff- 6-5-15 snd feb 2017, on xarelto for dvt and portal vein thrombosis. 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 Wound to BACK r/t lung CA, healed 6 months ago History of Any Multi-Drug Resistant Organisms: C-DIFF, MRSA Year Discovered:: 09/17/17 MDRO Source:: MRSA URINE Past Surgical History: Adenoidectomy, Appendectomy, Breast Surgery, Cholecystectomy, Hysterectomy, Orthopedic Surgery, Tonsillectomy Additional Past Surgical History / Comment(s): Mastectomy bilateral; Left lower lobectomy 70%; exploratory laparotomy, LASER SX AT [facility] FOR MELANOMA- CURRENTLY HAS 100 SPOTS THAT THEY ARE WATCHING REMMOVED 4 SO FAR.lasik eye sx, past "abcess on back(ecoli) pt stated they had to open a channel,removed 2 ribs and some muscle and it was open to drain to 18 months". surgical repair to Right wrist, right femur, and right hip in 2018 Past Anesthesia/Blood Transfusion Reactions: No Reported Reaction Additional Past Anesthesia/Blood Transfusion Reaction / Comm: PAST BLOOD TRANSFUSIONS- NO COMPLICATIONS Past Psychological History: Depression Additional Psychological History / Comment(s): LOW DOSE LEXAPRO, CURRENTLY NO DEPRESSION, PT normally lives at home with her zeeshan, however currently patient resides at [facility] due to right arm and hip fractures . pt started she had just recently started working w/pt getting up w/walker and assistance and transfer w/assistance to w/c Smoking Status: Former smoker Past Alcohol Use History: None Reported Additional Past Alcohol Use History / Comment(s): STARTED SMOKING AT AGE 13, SMOKED 1 PPD SMOKED FOR 3 YEARS THEN CUT DOWN TO ONLY SMOKING WHEN OUT WITH FRIENDS.QUIT 1978. Past Drug Use History: None Reported - Past Family History Father Additional Family Medical History / Comment(s): FROM COMPLICATIONS OF SCHRAPNEL IN BODY Mother Additional Family Medical History / Comment(s): STOMACH PROBLEMS, EMPHYSEMA Medications and Allergies Home Medications Medication Instructions Recorded Confirmed Type Levothyroxine Sodium [Synthroid] 50 mcg PO DAILY@0600 07/04/17 01/21/19 History Escitalopram Oxalate [Lexapro] 20 mg PO DAILY 07/06/17 01/21/19 History Acetaminophen Tab [Tylenol] 650 mg PO Q6HR PRN tab 12/29/18 01/21/19 Rx Furosemide [Lasix] 40 mg PO BID #1 tablet 12/29/18 01/21/19 Rx Lidocaine 5% Patch [Lidoderm 5% 1 patch TOPICAL HS patch 12/29/18 01/21/19 Rx Patch] Meclizine [Antivert] 12.5 mg PO TID PRN tab 12/29/18 01/21/19 Rx Midodrine [ProAmatine] 5 mg PO AC-TID tab 12/29/18 01/21/19 Rx Nitroglycerin Sl Tabs [Nitrostat] 0.4 mg SUBLINGUAL Q5M PRN tab 12/29/18 01/21/19 Rx Pantoprazole [Protonix] 40 mg PO AC-BRKFST tablet. 12/29/18 01/21/19 Rx Sodium Bicarbonate Tab 650 mg PO BID tab 12/29/18 01/21/19 Rx Aspirin 325 mg PO DAILY@1700 01/21/19 01/21/19 History Bisacodyl [Dulcolax] 10 mg RECTAL DAILY PRN 01/21/19 01/21/19 History Cholestyramine (with Sugar) 4 gm PO BID@0800,1700 01/21/19 01/21/19 History [Questran Packet] Diphenox-Atrop 2.5-0.025 mg 1 tab PO Q6HR PRN 01/21/19 01/21/19 History [Lomotil] Epoetin Mike [Epogen] 4,000 unit SQ MOWEFR 01/21/19 01/21/19 History Lactobacillus Acidoph & Bulgar 1 packet PO BID 01/21/19 01/21/19 History [Lactinex] Magnesium Hydroxide [Milk of 7,200 mg PO DAILY PRN 01/21/19 01/21/19 History Magnesia Concentrate] Metoprolol Tartrate 12.5 mg PO HS@2100 01/21/19 01/21/19 History Metoprolol Tartrate 25 mg PO DAILY@0800 01/21/19 01/21/19 History Morphine Sulfate ER [Ms Contin] 15 mg PO Q12HR PRN 01/21/19 01/21/19 History Na Phos,M-B/Na Phos,Di-Ba [Fleet 133 ml RECTAL ONCE PRN 01/21/19 01/21/19 History Adult] Ondansetron HCl [Zofran] 4 mg PO Q6H PRN 01/21/19 01/21/19 History Tamsulosin [Flomax] 0.4 mg PO HS 01/21/19 01/21/19 History Allergies Allergy/AdvReac Type Severity Reaction Status Date / Time VANESSA Inhibitors Allergy Unknown Verified 01/21/19 18:32 baclofen Allergy Confusion Verified 01/21/19 18:32 cefepime HCl [From Maxipime] Allergy Rash/Hives Verified 01/21/19 18:32 cephalexin Allergy Rash/Hives Verified 01/21/19 18:32 ciprofloxacin Allergy Rash/Hives Verified 01/21/19 18:32 clindamycin Allergy Nausea & Verified 01/21/19 18:32 Vomiting erythromycin base Allergy Rash/Hives Verified 01/21/19 18:32 heparin Allergy Unknown Verified 01/21/19 18:32 lisinopril [From Zestril] Allergy Unknown Verified 01/21/19 18:32 lorazepam [From Ativan] Allergy Confusion Verified 01/21/19 18:32 metronidazole [From Flagyl] Allergy Nausea & Verified 01/21/19 18:32 Vomiting penicillin G Allergy Rash/Hives Verified 01/21/19 18:32 shellfish derived [Shellfish] Allergy Swelling Verified 01/21/19 18:32 Sulfa (Sulfonamide Allergy Swelling Verified 01/21/19 18:32 Antibiotics) steroids Allergy Unknown Uncoded 12/03/18 15:07 Physical Exam Vitals: Vital Signs Temp Pulse Pulse Resp BP BP Pulse Ox 01/22/19 13:31 67 92/52 01/22/19 13:13 66 91/49 01/22/19 13:05 92/51 01/22/19 12:40 65 74/39 01/22/19 10:02 83/39 01/22/19 10:00 80/50 01/22/19 08:49 97.5 F L 72 80/43 94 L 01/22/19 04:46 98.8 F 70 14 89/50 97 01/21/19 22:25 97.8 F 73 12 95/56 98 01/21/19 20:12 98.6 F 69 18 92/50 97 01/21/19 18:00 66 11 L 97/59 99 01/21/19 17:30 66 8 L 78/48 99 01/21/19 17:00 71 13 99/54 93 L 01/21/19 16:48 97.8 F 74 10 L 83/55 100 Intake and Output 01/21/19 01/22/19 01/22/19 22:59 06:59 14:59 Intake Total 200 Output Total 350 Balance -350 200 Intake: Oral 200 Output: Urine 350 Other: Voiding Method Indwelling Catheter Indwelling Catheter # Bowel Movements 1 Weight 68.492 kg GENERAL DESCRIPTION: An elderly female lying in bed, no distress. No tachypnea or accessory muscle of respiration use. HEENT: Shows Pallor , no scleral icterus. Oral mucous membrane is dry. No pharyngeal erythema or thrush NECK: Trachea central, no thyromegaly. LUNGS: Unlabored breathing. Clear to auscultation anteriorly. No wheeze or crackle. HEART: S1, S2, regular rate and rhythm. No loud murmur ABDOMEN: Soft, mild left lower quadrant tenderness , no guarding or rigidity, no organomegaly EXTREMITIES: No edema of feet. SKIN: No rash, no masses palpable. NEUROLOGICAL: The patient is awake, alert, oriented x3, mood and affect normal. Results CBC & Chem 7: 01/22/19 10:30 01/22/19 10:30 Labs: Abnormal Lab Results - Last 24 Hours (Table) 01/21/19 01/21/19 01/21/19 Range/Units 17:00 17:00 17:00 WBC (3.8-10.6) k/uL RBC 3.71 L (3.80-5.40) m/uL Hgb 10.1 L (11.4-16.0) gm/dL Hct 33.3 L (34.0-46.0) % MCHC 30.3 L (31.0-37.0) g/dL RDW 16.6 H (11.5-15.5) % Lymphocytes # (1.0-4.8) k/uL Lymphocytes # (Manual) 0.65 L (1.0-4.8) k/uL Chloride (98-107) mmol/L BUN 60 H (7-17) mg/dL Creatinine 3.73 H (0.52-1.04) mg/dL Glucose 105 H (74-99) mg/dL Calcium 7.9 L (8.4-10.2) mg/dL Alkaline Phosphatase 411 H (38-126) U/L Total Protein (6.3-8.2) g/dL Albumin 2.6 L (3.5-5.0) g/dL Urine Protein Trace H (Negative) Urine Ketones 3+ H (Negative) 01/22/19 01/22/19 Range/Units 10:30 10:30 WBC 3.2 L (3.8-10.6) k/uL RBC 3.45 L (3.80-5.40) m/uL Hgb 9.0 L (11.4-16.0) gm/dL Hct 31.2 L (34.0-46.0) % MCHC 28.9 L (31.0-37.0) g/dL RDW 17.0 H (11.5-15.5) % Lymphocytes # 0.7 L (1.0-4.8) k/uL Lymphocytes # (Manual) (1.0-4.8) k/uL Chloride 109 H (98-107) mmol/L BUN 57 H (7-17) mg/dL Creatinine 3.59 H (0.52-1.04) mg/dL Glucose 112 H (74-99) mg/dL Calcium 7.6 L (8.4-10.2) mg/dL Alkaline Phosphatase 304 H (38-126) U/L Total Protein 5.9 L (6.3-8.2) g/dL Albumin 2.3 L (3.5-5.0) g/dL Urine Protein (Negative) Urine Ketones (Negative) Assessment and Plan Assessment: 1-patient with a history of complicated urinary tract infection with obstetric any and left ureteral stent which was replaced on last admission her underlying urinary tract infection has been adequately treated has a patient currently stable/his symptoms and a UA has been negative for fever or elevated white count 2-patient with diarrhea this patient has been exposed to antibiotics and has been in and out of the hospital C. diff will need to be ruled out Plan: 1-no need for systemic antibiotics therapy 2-we will check a stool for C. diff and we will treat if positive 3-Questran 4 g twice a day for symptomatic treatment of diarrhea We will follow on clinical condition and cultures to further adjust medication if needed Thank you for this consultation will follow this patient with you Time with Patient: Greater than 30
[2019-01-23] MEDS: SODIUM CHLORIDE 0.9% 1,000 ML IV SCH (10:45)
--- NOTE | 2019-01-23 10:58 | P.PN ---
Subjective Patient is seen in follow-up for acute kidney injury on chronic kidney disease. Patient has chronic kidney disease stage IV with baseline creatinine in the range of 2.6-3. Creatinine was 3.73 on admission and is 3.59 today. She is currently maintained on normal saline at 80 mL an hour. Diuretics are held. Oral intake is fair. No chest pain or shortness of breath. Patient has a chronic King catheter. Vital signs are stable. General: The patient appeared well nourished and normally developed. HEENT: Head exam is unremarkable. Neck is without jugular venous distension. LUNGS: Lungs are clear to auscultation and percussion. Breath sounds decreased. HEART: Rate and Rhythm are regular. First and second heart sounds normal. No murmurs, rubs or gallops. ABDOMEN: Abdominal exam reveals normal bowel sounds. Non-tender and non-distended. No evidence of peritonitis. EXTREMITITES: 1+ edema. Objective - Vital Signs Vital signs: Vital Signs Temp 97.9 F 01/23/19 07:35 Pulse 74 01/23/19 10:11 Resp 18 01/23/19 05:00 BP 93/57 01/23/19 10:11 Pulse Ox 93 L 01/23/19 09:16 Intake & Output 01/22/19 01/23/19 01/23/19 18:59 06:59 18:59 Intake Total 200 750 240 Output Total 400 300 Balance -200 450 240 Weight 68.492 kg Intake: Oral 200 750 240 Output: Urine 400 300 Other: Voiding Method Indwelling Catheter Indwelling Catheter Indwelling Catheter # Voids 1 # Bowel Movements 1 - Labs CBC & Chem 7: 01/22/19 10:30 01/22/19 10:30 Labs: Abnormal Lab Results - Last 24 Hours (Table) 01/22/19 01/22/19 Range/Units 10:30 10:30 WBC 3.2 L (3.8-10.6) k/uL RBC 3.45 L (3.80-5.40) m/uL Hgb 9.0 L (11.4-16.0) gm/dL Hct 31.2 L (34.0-46.0) % MCHC 28.9 L (31.0-37.0) g/dL RDW 17.0 H (11.5-15.5) % Lymphocytes # 0.7 L (1.0-4.8) k/uL Chloride 109 H (98-107) mmol/L BUN 57 H (7-17) mg/dL Creatinine 3.59 H (0.52-1.04) mg/dL Glucose 112 H (74-99) mg/dL Calcium 7.6 L (8.4-10.2) mg/dL Alkaline Phosphatase 304 H (38-126) U/L Total Protein 5.9 L (6.3-8.2) g/dL Albumin 2.3 L (3.5-5.0) g/dL Assessment and Plan Plan: Assessment: 1. Acute kidney injury mostly prerenal improving with IV hydration. Creatinine 3.73 on admission and is 3.59 today. No hydronephrosis noted on CAT scan of the abdomen and pelvis done this admission. 2. Chronic kidney disease stage IV with baseline creatinine in the range of 2.6-3 secondary to obstructive uropathy. 3. Anemia of chronic kidney disease maintained on Aranesp. 4. Chronic diastolic CHF. Currently compensated. 5. History of hydronephrosis with right ureteral stent. 6. Chronic hypotension maintained on midodrine. Plan: I will decrease rate of normal saline to 50 mL an hour. Can likely Hep-Lock tomorrow. Discontinue Fleet enemas due to risk of acute phosphate nephropathy. Check iron studies. Repeat electrolytes in the morning.
[2019-01-23] MEDS: SODIUM FERRIC GLUCONAT-SUCROSE 125 MG in SODIUM CHLORIDE 0.9% 100 ML IVPB SCH (14:03)
--- NOTE | 2019-01-23 15:22 | P.GSCN ---
History of Present Illness Consult date: 01/23/19 Reason for Consult: Hydronephrosis Requesting physician: Miles Collado History of present illness: The patient is a 68-year-old female with multiple medical problems including uterine carcinoma treated with radiation therapy and hysterectomy. 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 She also has a history of breast cancer, melanoma as well as bowel issues. She has chronic renal failure due to obstructive uropathy, and her stents were last changed on December 17, 2018. She has chronic left renal atrophy. A CT scan performed yesterday shows improved hydronephrosis. She resides at [facility]. She has had a King catheter for approximately 3 weeks due to incontine nce. The incontinence appears to be due to radiation damage to the bladder, and the patient has declined referral to a tertiary care center for management of her incontinence. She has recently experienced abdominal pain and was receiving IV antibiotics for a UTI. She has a history of chronic kidney disease, but her serum creatinine level was noted to have increased and she was subsequently admi tted. A urine culture obtained on 01/08/2019 showed a Proteus UTI sensitive to most oral antibiotics. A urine culture obtained on 01/19/2019 showed Bea. Review of Systems - Constitutional Denies chills, Denies fever Past Medical History Past Medical History: Blood Disorder, Cancer, Deep Vein Thrombosis (DVT), GI Bleed, Liver Disease, Respiratory Disorder Additional Past Medical History / Comment(s): admit 07/27 for upper GI bleed. 09-10-14 admitted to [facility] with c/o blood in urine and rectal bleeding, DX GI BLEED AND UTI. other hx: Breast Ca x2; Skin Ca squamous and melanoma; uterine ca, lung cancer LOWER LEFT LOBE 70%, c-diff- 6-5-15 snd feb 2017, on xarelto for dvt and portal vein thrombosis. 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 Wound to BACK r/t lung CA, healed 6 months ago History of Any Multi-Drug Resistant Organisms: C-DIFF, MRSA Year Discovered:: 09/17/17 MDRO Source:: MRSA URINE Past Surgical History: Adenoidectomy, Appendectomy, Breast Surgery, Cholecystectomy, Hysterectomy, Orthopedic Surgery, Tonsillectomy Additional Past Surgical History / Comment(s): Mastectomy bilateral; Left lower lobectomy 70%; exploratory laparotomy, LASER SX AT [facility] FOR MELANOMA- CURRENTLY HAS 100 SPOTS THAT THEY ARE WATCHING REMMOVED 4 SO FAR.lasik eye sx, past "abcess on back(ecoli) pt stated they had to open a channel,removed 2 ribs and some muscle and it was open to drain to 18 months". surgical repair to Right wrist, right femur, and right hip in 2018 Past Anesthesia/Blood Transfusion Reactions: No Reported Reaction Additional Past Anesthesia/Blood Transfusion Reaction / Comm: PAST BLOOD TRA NSFUSIONS- NO COMPLICATIONS Past Psychological History: Depression Additional Psychological History / Comment(s): LOW DOSE LEXAPRO, CURRENTLY NO DEPRESSION, PT normally lives at home with her zeeshan, however currently patient resides at [facility] due to right arm and hip fractures . pt started she had just recently started working w/pt getting up w/walker and assistance and transfer w/assistance to w/c Smoking Status: Former smoker Past Alcohol Use History: None Reported Additional Past Alcohol Use History / Comment(s): STARTED SMOKING AT AGE 13, SMO KED 1 PPD SMOKED FOR 3 YEARS THEN CUT DOWN TO ONLY SMOKING WHEN OUT WITH FRIENDS.QUIT 1978. Past Drug Use History: None Reported - Past Family History Father Additional Family Medical History / Comment(s): FROM COMPLICATIONS OF SCHRAPNEL IN BODY Mother Additional Family Medical History / Comment(s): STOMACH PROBLEMS, EMPHYSEMA Medications and Allergies Home Medications Medication Instructions Recorded Confirmed Type Levothyroxine Sodium [Synthroid] 50 mcg PO DAILY@0600 07/04/17 01/21/19 History Escitalopram Oxalate [Lexapro] 20 mg PO DAILY 07/06/17 01/21/19 History Acetaminophen Tab [Tylenol] 650 mg PO Q6HR PRN tab 12/29/18 01/21/19 Rx Furosemide [Lasix] 40 mg PO BID #1 tablet 12/29/18 01/21/19 Rx Lidocaine 5% Patch [Lidoderm 5% 1 patch TOPICAL HS patch 12/29/18 01/21/19 Rx Patch] Meclizine [Antivert] 12.5 mg PO TID PRN tab 12/29/18 01/21/19 Rx Midodrine [ProAmatine] 5 mg PO AC-TID tab 12/29/18 01/21/19 Rx Nitroglycerin Sl Tabs [Nitrostat] 0.4 mg SUBLINGUAL Q5M PRN tab 12/29/18 01/21/19 Rx Pantoprazole [Protonix] 40 mg PO AC-BRKFST tablet. 12/29/18 01/21/19 Rx Sodium Bicarbonate Tab 650 mg PO BID tab 12/29/18 01/21/19 Rx Aspirin 325 mg PO DAILY@1700 01/21/19 01/21/19 History Bisacodyl [Dulcolax] 10 mg RECTAL DAILY PRN 01/21/19 01/21/19 History Cholestyramine (with Sugar) 4 gm PO BID@0800,1700 01/21/19 01/21/19 History [Questran Packet] Diphenox-Atrop 2.5-0.025 mg 1 tab PO Q6HR PRN 01/21/19 01/21/19 History [Lomotil] Epoetin Mike [Epogen] 4,000 unit SQ MOWEFR 01/21/19 01/21/19 History Lactobacillus Acidoph & Bulgar 1 packet PO BID 01/21/19 01/21/19 History [Lactinex] Magnesium Hydroxide [Milk of 7,200 mg PO DAILY PRN 01/21/19 01/21/19 History Magnesia Concentrate] Metoprolol Tartrate 12.5 mg PO HS@2100 01/21/19 01/21/19 History Metoprolol Tartrate 25 mg PO DAILY@0800 01/21/19 01/21/19 History Morphine Sulfate ER [Ms Contin] 15 mg PO Q12HR PRN 01/21/19 01/21/19 History Na Phos,M-B/Na Phos,Di-Ba [Fleet 133 ml RECTAL ONCE PRN 01/21/19 01/21/19 History Adult] Ondansetron HCl [Zofran] 4 mg PO Q6H PRN 01/21/19 01/21/19 History Tamsulosin [Flomax] 0.4 mg PO HS 01/21/19 01/21/19 History Allergies Allergy/AdvReac Type Severity Reaction Status Date / Time VANESSA Inhibitors Allergy Unknown Verified 01/21/19 18:32 baclofen Allergy Confusion Verified 01/21/19 18:32 cefepime HCl [From Maxipime] Allergy Rash/Hives Verified 01/21/19 18:32 cephalexin Allergy Rash/Hives Verified 01/21/19 18:32 ciprofloxacin Allergy Rash/Hives Verified 01/21/19 18:32 clindamycin Allergy Nausea & Verified 01/21/19 18:32 Vomiting erythromycin base Allergy Rash/Hives Verified 01/21/19 18:32 heparin Allergy Unknown Verified 01/21/19 18:32 lisinopril [From Zestril] Allergy Unknown Verified 01/21/19 18:32 lorazepam [From Ativan] Allergy Confusion Verified 01/21/19 18:32 metronidazole [From Flagyl] Allergy Nausea & Verified 01/21/19 18:32 Vomiting penicillin G Allergy Rash/Hives Verified 01/21/19 18:32 shellfish derived [Shellfish] Allergy Swelling Verified 01/21/19 18:32 Sulfa (Sulfonamide Allergy Swelling Verified 01/21/19 18:32 Antibiotics) steroids Allergy Unknown Uncoded 12/03/18 15:07 Surgical - Exam Vital Signs Temp Pulse Resp BP Pulse Ox 97.8 F 68 16 83/55 100 01/21/19 16:48 01/21/19 16:48 01/21/19 16:48 01/21/19 16:48 01/21/19 16:48 - General well developed, well nourished, no distress - Respiratory normal respiratory effort - Abdomen Abdomen: soft, tender (epigastric tenderness), no guarding, no rigid, no rebound, no distended - Psychiatric oriented to time, oriented to person, oriented to place, speech is normal, memory intact Results - Labs 01/22/19 10:30 01/22/19 10:30 Abnormal Lab Results - Last 24 Hours (Table) 01/21/19 01/21/19 01/21/19 Range/Units 17:00 17:00 17:00 WBC (3.8-10.6) k/uL RBC 3.71 L (3.80-5.40) m/uL Hgb 10.1 L (11.4-16.0) gm/dL Hct 33.3 L (34.0-46.0) % MCHC 30.3 L (31.0-37.0) g/dL RDW 16.6 H (11.5-15.5) % Lymphocytes # (1.0-4.8) k/uL Lymphocytes # (Manual) 0.65 L (1.0-4.8) k/uL Chloride (98-107) mmol/L BUN 60 H (7-17) mg/dL Creatinine 3.73 H (0.52-1.04) mg/dL Glucose 105 H (74-99) mg/dL Calcium 7.9 L (8.4-10.2) mg/dL Alkaline Phosphatase 411 H (38-126) U/L Total Protein (6.3-8.2) g/dL Albumin 2.6 L (3.5-5.0) g/dL Urine Protein Trace H (Negative) Urine Ketones 3+ H (Negative) 01/22/19 01/22/19 Range/Units 10:30 10:30 WBC 3.2 L (3.8-10.6) k/uL RBC 3.45 L (3.80-5.40) m/uL Hgb 9.0 L (11.4-16.0) gm/dL Hct 31.2 L (34.0-46.0) % MCHC 28.9 L (31.0-37.0) g/dL RDW 17.0 H (11.5-15.5) % Lymphocytes # 0.7 L (1.0-4.8) k/uL Lymphocytes # (Manual) (1.0-4.8) k/uL Chloride 109 H (98-107) mmol/L BUN 57 H (7-17) mg/dL Creatinine 3.59 H (0.52-1.04) mg/dL Glucose 112 H (74-99) mg/dL Calcium 7.6 L (8.4-10.2) mg/dL Alkaline Phosphatase 304 H (38-126) U/L Total Protein 5.9 L (6.3-8.2) g/dL Albumin 2.3 L (3.5-5.0) g/dL Urine Protein (Negative) Urine Ketones (Negative) Diabetes panel 01/21/19 01/22/19 Range/Units 17:00 10:30 Sodium 140 141 (137-145) mmol/L Potassium 4.6 4.4 (3.5-5.1) mmol/L Chloride 107 109 H (98-107) mmol/L Carbon Dioxide 24 25 (22-30) mmol/L BUN 60 H 57 H (7-17) mg/dL Creatinine 3.73 H 3.59 H (0.52-1.04) mg/dL Glucose 105 H 112 H (74-99) mg/dL Calcium 7.9 L 7.6 L (8.4-10.2) mg/dL AST 30 23 (14-36) U/L ALT 20 14 (9-52) U/L Alkaline Phosphatase 411 H 304 H (38-126) U/L Total Protein 6.6 5.9 L (6.3-8.2) g/dL Albumin 2.6 L 2.3 L (3.5-5.0) g/dL Calcium panel 01/21/19 01/22/19 Range/Units 17:00 10:30 Calcium 7.9 L 7.6 L (8.4-10.2) mg/dL Albumin 2.6 L 2.3 L (3.5-5.0) g/dL Pituitary panel 01/21/19 01/22/19 Range/Units 17:00 10:30 Sodium 140 141 (137-145) mmol/L Potassium 4.6 4.4 (3.5-5.1) mmol/L Chloride 107 109 H (98-107) mmol/L Carbon Dioxide 24 25 (22-30) mmol/L BUN 60 H 57 H (7-17) mg/dL Creatinine 3.73 H 3.59 H (0.52-1.04) mg/dL Glucose 105 H 112 H (74-99) mg/dL Calcium 7.9 L 7.6 L (8.4-10.2) mg/dL Adrenal panel 01/21/19 01/22/19 Range/Units 17:00 10:30 Sodium 140 141 (137-145) mmol/L Potassium 4.6 4.4 (3.5-5.1) mmol/L Chloride 107 109 H (98-107) mmol/L Carbon Dioxide 24 25 (22-30) mmol/L BUN 60 H 57 H (7-17) mg/dL Creatinine 3.73 H 3.59 H (0.52-1.04) mg/dL Glucose 105 H 112 H (74-99) mg/dL Calcium 7.9 L 7.6 L (8.4-10.2) mg/dL Total Bilirubin 0.2 0.2 (0.2-1.3) mg/dL AST 30 23 (14-36) U/L ALT 20 14 (9-52) U/L Alkaline Phosphatase 411 H 304 H (38-126) U/L Total Protein 6.6 5.9 L (6.3-8.2) g/dL Albumin 2.6 L 2.3 L (3.5-5.0) g/dL - Imaging CT scan - abdomen: report reviewed, image reviewed Assessment and Plan (1) Hydronephrosis, right Current Visit: No Status: Acute Code(s): N13.30 - UNSPECIFIED HYDRONEPHROSIS SNOMED Code(s): 25000935 Plan: I do not believe that the exacerbation of the patient's renal failure is obstructive in nature, given that the computed tomography scan shows the stents to be well positioned without evidence of hydronephrosis. I am confused as to why the patient has recently been treated with IV antibiotics. Recent urine cultures do not suggest the need for IV antibiotics. Furthermore, her infections may be due to the recently placed King catheter. Unfortunately, the patient's incontinence may be refractory to treatment and the placement of a catheter to manage the incontinence may predispose her to UTIs. I have no further recommendations at this time. Time with Patient: Less than 30
--- NOTE | 2019-01-23 15:29 | PN ---
PROGRESS NOTE DATE OF SERVICE: 01/23/2019 REASON FOR FOLLOW UP: 1. UTI. 2. Diarrhea. INTERVAL HISTORY: The patient is currently afebrile. The patient is breathing comfortably. The patient denies having any chest pain. No cough. No nausea, no vomiting. Still has some left- sided abdominal pain, though improved. Still have about 1 stool yesterday. PHYSICAL EXAMINATION: Blood pressure 98/61 with a pulse of 70, temperature is 98.7, and she is 99% on 2 L nasal cannula. General description is an elderly female, up in the bed in no distress. RESPIRATORY SYSTEM: Unlabored breathing, decreased breath sounds at the base, no wheeze. HEART: S1, S2. Regular rate and rhythm. ABDOMEN: Soft, no tenderness. LABS: Hemoglobin 9, white count 3.2 as of yesterday. No blood work was done today. Urine is negative. Stool for C diff request is not completed. DIAGNOSTIC IMPRESSION AND PLAN: 1. Patient in the hospital with worsening of her kidney function, being managed by Nephrology. Patient's CT abdomen and pelvis did not show any worsening of left- sided hydronephrosis. The patient's UA is negative indicating adequate treatment of underlying urinary tract infection. 2. Diarrhea, possible antibiotic associated, stool series was requested and not completed. Praful and Jourdan to continue. Will monitor clinical course closely. Continue supportive care. MMODL / IJN: [id number] /
[2019-01-23 16:11] LABS: % Iron Saturation 14.71 (12.00-45.00); Ferritin 443.3 ng/mL (10.0-291.0)
[2019-01-23] MEDS: ASPIRIN 325 MG TAB PO SCH (17:21)
[2019-01-23] MEDS: METOPROLOL TARTRATE 12.5 MG TAB PO SCH (21:29)
[2019-01-23] MEDS: TAMSULOSIN 0.4 MG CAP.ER.24H PO SCH (21:29)
[2019-01-23] MEDS: LIDOCAINE 5% PATCH TOPICAL SCH (21:33)
--- NOTE | 2019-01-23 22:35 | PN ---
PROGRESS NOTE CHIEF COMPLAINT: Acute kidney injury. Creatinine went from 3.73 down to 3.59. Normal saline went from 80 mL/hour down to 50 mL/hour. Creatinine is improved. She is sitting up in a chair. CARDIOVASCULAR: S1, S2. LUNGS: Clear. GI: Soft. HEMATOLOGY: Negative Homans. PSYCH: Fair mood and affect. Temperature 97.9, pulse 74, respiratory rate 18 to 20. Blood pressure is 93/57, oxygen saturation 93% on room air. Increased the midodrine from 5 mg t.i.d. to 10 mg t.i.d. ASSESSMENT: 1. Acute renal tubular necrosis. 2. Acute renal injury, improving. 3. Orthostatic hypotension, improving with increased midodrine. PLAN: Continue current treatment. Monitor renal function over the weekend. Continue with midodrine 10 mg before meals t.i.d. MMEUGENIOL / AMBER: [id number] /
[2019-01-24] MEDS: SODIUM CHLORIDE 0.9% 1,000 ML IV SCH (06:02)
[2019-01-24] MEDS: LEVOTHYROXINE 50 MCG TAB PO SCH (06:02)
[2019-01-24 06:40] LABS: Anisocytosis Slight; Basophils % (A) 1 %; Eosinophils # (A) 0.2 k/uL (0-0.7); Eosinophils % (A) 5 %; HCT 31.3 % (34.0-46.0); HGB 9.4 gm/dL (11.4-16.0); Hypochromasia Marked; Lymphocytes # (A) 0.7 k/uL (1.0-4.8); Lymphocytes % (A) 23 %; MCH 27.5 pg (25.0-35.0); MCHC 30.1 g/dL (31.0-37.0); MCV 91.3 fL (80.0-100.0); Mean Platelet Volume 6.4; Monocytes # (A) 0.3 k/uL (0-1.0); Monocytes % (A) 8 %; Neutrophils % (A) 61 %; Platelet Count 232 k/uL (150-450); RBC 3.43 m/uL (3.80-5.40); RDW 16.6 % (11.5-15.5); WBC 3.3 k/uL (3.8-10.6)
[2019-01-24 06:43] LABS: Albumin 2.3 g/dL (3.5-5.0); Calcium 7.9 mg/dL (8.4-10.2); Magnesium 1.7 mg/dL (1.6-2.3); Potassium 4.2 mmol/L (3.5-5.1); Total Bilirubin 0.3 mg/dL (0.2-1.3)
[2019-01-24] MEDS: ESCITALOPRAM 20 MG TAB PO SCH (07:34)
[2019-01-24] MEDS: SODIUM BICARBONATE TAB 650 MG TAB PO SCH ×2 (07:34→20:08)
[2019-01-24] MEDS: MIDODRINE 5 MG TAB PO SCH ×3 (07:34→16:56)
[2019-01-24] MEDS: PANTOPRAZOLE 40 MG TABLET PO SCH (07:35)
[2019-01-24] MEDS: LACTOBACILLUS ACIDOPH & BULGAR 1 EACH PACKET PO SCH ×2 (07:35→20:19)
[2019-01-24] MEDS: METOPROLOL TARTRATE 25 MG TAB PO SCH (07:35)
[2019-01-24] MEDS: CHOLESTYRAMINE (WITH SUGAR) 4 GM PACKET PO SCH ×2 (07:35→16:56)
[2019-01-24] MEDS: SODIUM FERRIC GLUCONAT-SUCROSE 125 MG in SODIUM CHLORIDE 0.9% 100 ML IVPB SCH (08:55)
[2019-01-24] MEDS: ACETAMINOPHEN TAB 325 MG TAB PO PRN (10:48)
--- NOTE | 2019-01-24 11:40 | P.PN ---
Subjective Progress Note Date: 01/24/19 Principal diagnosis: This is a 68-year-old female followed up with chronic kidney disease stage IV with acute kidney injury. She had uterine cancer about 3 years ago, underwent hysterectomy and radiation and subsequently developed urethral stenosis bilaterally. This has resulted in chronic kidney disease with bilateral hydronephrosis and has had multiple stents bilaterally. Most recent stent change is date 12/17/2018 She came in because of low blood pressure weakness. She also has been diagnosed with breast cancer status post mastectomy, history of DVT history of C. diff colitis in the past Today she complains of worsening of her lower abdominal suprapubic area pain that she has had on and off as well as worsening edema. She has a King catheter in. Denies any fever chills. No loin pain. Her blood pressure remains low in the 90s she is on small dose of metoprolol ( ?)and also on Midrin Objective - Vital Signs Vital signs: Vital Signs Temp 97.7 F 01/24/19 04:44 Pulse 71 01/24/19 04:44 Resp 20 01/24/19 04:44 BP 91/47 01/24/19 04:44 Pulse Ox 96 01/24/19 04:44 Intake & Output 01/23/19 01/24/19 01/24/19 18:59 06:59 18:59 Intake Total 240 400 Output Total 300 400 Balance -60 0 Intake: Oral 240 400 Output: Urine 300 400 Uretheral (King) 400 Other: Voiding Method Indwelling Catheter Indwelling Catheter Indwelling Catheter # Voids 0 2 # Bowel Movements 0 0 On examination is awake alert oriented, she looks somewhat cachectic. HEENT exam no JVP neck is supple no facial asymmetry Insert her to auscultation fairly good air entry bilaterally Heart sounds are unremarkable for any murmur rub gallop Abdomen soft slightly distended and tender in the suprapubic area Extremity exam was 2+ edema Neurologically awake alert oriented but generalized weakness - Labs CBC & Chem 7: 01/24/19 06:12 01/24/19 06:12 Labs: Abnormal Lab Results - Last 24 Hours (Table) 01/22/19 01/24/19 01/24/19 Range/Units 10:30 06:12 06:12 WBC 3.3 L (3.8-10.6) k/uL RBC 3.43 L (3.80-5.40) m/uL Hgb 9.4 L (11.4-16.0) gm/dL Hct 31.3 L (34.0-46.0) % MCHC 30.1 L (31.0-37.0) g/dL RDW 16.6 H (11.5-15.5) % Lymphocytes # 0.7 L (1.0-4.8) k/uL Chloride 114 H (98-107) mmol/L Carbon Dioxide 21 L (22-30) mmol/L BUN 50 H (7-17) mg/dL Creatinine 3.24 H (0.52-1.04) mg/dL Calcium 7.9 L (8.4-10.2) mg/dL Iron 30 L (50-170) ug/dL TIBC 204 L (228-460) ug/dL Ferritin 443.3 H (10.0-291.0) ng/mL Alkaline Phosphatase 247 H (38-126) U/L Total Protein 6.0 L (6.3-8.2) g/dL Albumin 2.3 L (3.5-5.0) g/dL Assessment and Plan Assessment: Impression 1. Acute kidney injury secondary to low blood pressure. Creatinine is 3.4 improved from peak of 3.6 2. Chronic kidney disease, baseline creatinine in the vicinity of 2.4 based on the creatinine dated 08/13/2018 further lower at 1.7 dated 07/28/2018. Etiology is bilateral hydronephrosis with bilateral stent changes, because of ureteral damage from radiation. 3. Low blood pressure cause not clear ejection fraction 55-60% by ech ocardiogram 4. History of supraventricular tachycardia, she is on metoprolol small doses 5. History of uterine cancer with hysterectomy and radiation therapy which cause urethral stenosis bilaterally requiring frequent stent changes. 6. Anemia of chronic kidney disease hemoglobin is 9.4. 7. Iron deficiency 14% saturation 01/22/2019. Admission 1. Maintain IV fluids, currently at 50 mL an hour 2. Patient is on iron IV therapy gluconate 125 mg daily. Expect hemoglobin to go up in the next 4-6 weeks 3. Monitor labs every 2 or 3 days
[2019-01-24] MEDS: ASPIRIN 325 MG TAB PO SCH (16:56)
[2019-01-24] MEDS: TAMSULOSIN 0.4 MG CAP.ER.24H PO SCH (20:08)
[2019-01-24] MEDS: METOPROLOL TARTRATE 12.5 MG TAB PO SCH (20:08)
[2019-01-24] MEDS: LIDOCAINE 5% PATCH TOPICAL SCH (20:17)
[2019-01-25] MEDS: SODIUM CHLORIDE 0.9% 1,000 ML IV SCH ×2 (05:14→23:18)
[2019-01-25] MEDS: LEVOTHYROXINE 50 MCG TAB PO SCH (05:31)
[2019-01-25 07:14] LABS: Glucose,Whole Blood 73 mg/dL (75-99)
[2019-01-25] MEDS: CHOLESTYRAMINE (WITH SUGAR) 4 GM PACKET PO SCH ×2 (07:14→15:14)
[2019-01-25] MEDS: ESCITALOPRAM 20 MG TAB PO SCH (07:14)
[2019-01-25] MEDS: LACTOBACILLUS ACIDOPH & BULGAR 1 EACH PACKET PO SCH ×2 (07:14→23:18)
[2019-01-25] MEDS: METOPROLOL TARTRATE 25 MG TAB PO SCH (07:14)
[2019-01-25] MEDS: PANTOPRAZOLE 40 MG TABLET PO SCH (07:14)
[2019-01-25] MEDS: SODIUM BICARBONATE TAB 650 MG TAB PO SCH ×2 (07:14→23:17)
[2019-01-25] MEDS: MIDODRINE 5 MG TAB PO SCH ×3 (07:14→15:14)
--- NOTE | 2019-01-25 07:30 | PN ---
PROGRESS NOTE 68-year-old white female who was admitted to the hospital with worsening renal function and orthostatic hypotension and dizziness. Her Midodrine has been increased from 5 mg to t.i.d. She is given fluids over the last 24 hours. She is improved from a medical standpoint as far as her blood pressure is a little bit better and renal function is better, Lasix has been discontinued. Temp 97, pulse 71, respiratory 18-20, blood pressure 91/47. She looks thin, cachectic. Lungs are faint mild wheeze. Heart S1, S2. Abdomen is distended. Tenderness suprapubic area. Neurologic: Cranial nerves are intact. White count 3.3, hemoglobin 9.4, BUN 50, creatinine 3.24. Iron deficiency continue on Venofer daily. Maintain IV fluids 50 mL an hour. Possible discharge home back to rehab center in 2-3 days. MMODL / YURIN: [id number] /
[2019-01-25] MEDS: SODIUM FERRIC GLUCONAT-SUCROSE 125 MG in SODIUM CHLORIDE 0.9% 100 ML IVPB SCH (08:42)
--- NOTE | 2019-01-25 11:05 | P.PN ---
Subjective Progress Note Date: 01/25/19 Principal diagnosis: This is a 68-year-old female followed up with chronic kidney disease stage IV with acute kidney injury. She had uterine cancer about 3 years ago, underwent hysterectomy and radiation and subsequently developed urethral stenosis bilaterally. This has resulted in chronic kidney disease with bilateral hydronephrosis and has had multiple stents bilaterally. Most recent stent change is date 12/17/2018 She came in because of low blood pressure weakness. Her blood pressure still remains low and echocardiogram does not show any significant cardiac pathology. She is on small dose of metoprolol 12.5 daily at bedtime and 25 mg in the morning. Additionally she is on Midrin 10 mg 3 times a day She also has been diagnosed with breast cancer status post mastectomy, history of DVT history of C. diff colitis in the past Today she complains of worsening of her lower abdominal suprapubic area pain that she has had on and off as well as worsening edema. She has a King catheter in. Denies any fever chills. No loin pain. She remains stable, on IV fluids. No nausea vomiting diarrhea. Objective - Vital Signs Vital signs: Vital Signs Temp 97.9 F 01/25/19 04:45 Pulse 71 01/25/19 04:45 Resp 20 01/25/19 04:45 BP 91/52 01/25/19 04:45 Pulse Ox 93 L 01/25/19 04:45 Intake & Output 01/24/19 01/25/19 01/25/19 18:59 06:59 18:59 Intake Total 120 300 Output Total 600 Balance 120 -300 Intake: Oral 120 300 Output: Urine 600 Uretheral (King) 300 Other: Voiding Method Indwelling Catheter Indwelling Catheter Indwelling Catheter # Voids 2 0 # Bowel Movements 0 On examination she is awake alert oriented comfortable HEENT exam no JVP neck is supple no facial asymmetry Lungs clear to auscultation good air entry bilaterally Heart sounds are unremarkable for any murmur rub gallop Abdomen soft but tenderness all over and this is not Extremity exam was trace edema Neurologically awake alert oriented but generalized weakness and difficulty even sitting up - Labs CBC & Chem 7: 01/24/19 06:12 01/24/19 06:12 Labs: Abnormal Lab Results - Last 24 Hours (Table) 01/25/19 Range/Units 07:12 POC Glucose (mg/dL) 73 L (75-99) mg/dL Assessment and Plan Assessment: Impression 1. Acute kidney injury secondary to low blood pressure. Creatinine is 3.4 improved from peak of 3.6. Today's labs are not available 2. Chronic kidney disease, baseline creatinine in the vicinity of 2.4 based on the creatinine dated 08/13/2018 further lower at 1.7 dated 07/28/2018. Etiology is bilateral hydronephrosis with bilateral stent changes, because of ureteral damage from radiation. 3. Low blood pressure cause not clear ejection fraction 55-60% by echocardiogram. If TSH is within normal Serum cortisol not available 4. History of supraventricular tachycardia, she is on metoprolol small doses 5. History of uterine cancer with hysterectomy and radiation therapy which cause urethral stenosis bilaterally requiring frequent stent changes. 6. Anemia of chronic kidney disease hemoglobin is 9.4. 7. Iron deficiency 14% saturation 01/22/2019. Admission 1. Maintain IV fluids, currently at 50 mL an hour 2. Patient is on iron IV therapy gluconate 125 mg daily. Expect hemoglobin to go up in the next 4-6 weeks 3. Monitor labs every 2 or 3 days 4. Check serum free cortisol 5. Check orthostatic changes
[2019-01-25 12:00] LABS: Calcium 8.2 mg/dL (8.4-10.2); Potassium 5.1 mmol/L (3.5-5.1)
[2019-01-25] MEDS: ASPIRIN 325 MG TAB PO SCH (15:14)
--- NOTE | 2019-01-25 20:09 | PN ---
PROGRESS NOTE White female with acute renal insufficiency which is improving. Her dehydration is improved with IV fluids. Ureteral King tube still remains intact. No signs of infection are seen. She is getting up in a chair with assistance. She will need physical therapy to get moving better. Cardiovascular: S1-S2. Lungs transmitted upper airway sounds. Hematology negative Homans. Psych: Fair mood and affect. PLAN: Continue with IV fluids. Lasix was withheld. PT/OT. Fluid rehydration. MMODL / IJN: [id number] /
[2019-01-25] MEDS: TAMSULOSIN 0.4 MG CAP.ER.24H PO SCH (23:17)
[2019-01-25] MEDS: METOPROLOL TARTRATE 12.5 MG TAB PO SCH (23:17)
[2019-01-25] MEDS: LIDOCAINE 5% PATCH TOPICAL SCH (23:25)
--- NOTE | 2019-01-26 05:42 | PN ---
PROGRESS NOTE DATE OF SERVICE: 01/25/2019 REASON FOR FOLLOWUP: 1. Possible UTI. 2. Diarrhea. INTERVAL HISTORY: The patient is currently afebrile. The patient has been breathing comfortably. The patient denies having nausea or vomiting. Abdominal pain has improved. The patient mentioned that she did have more of a soft bowel movement and no runny stools. PHYSICAL EXAMINATION: Blood pressure 94/56, pulse of 70, temperature 98. She is 94% on 2 L nasal cannula. General description is an elderly female, lying in bed in no distress. RESPIRATORY SYSTEM: Unlabored breathing, clear to auscultation. HEART: S1, S2. Regular rate and rhythm. ABDOMEN: Soft, no tenderness. LABS: No new labs have been obtained today. Her creatinine was 2.92. DIAGNOSTIC IMPRESSION AND PLAN: 1. Patient admitted to the hospital with worsening kidney function in this patient who did have a history of complicated urinary tract infection. However, UA this admission has been negative and the patient is currently off antibiotic therapy. 2. Patient with diarrhea with concern for possible Clostridium difficile, though the patient's diarrhea seemed to have resolved. She was unable to provide any stool sample. Continue supportive care. MMODL / IJN: [id number] /
[2019-01-26] MEDS: LEVOTHYROXINE 50 MCG TAB PO SCH (05:46)
[2019-01-26 07:55] LABS: HGB 9.1 gm/dL (11.4-16.0); MCH 27.4 pg (25.0-35.0); MCHC 30.2 g/dL (31.0-37.0); MCV 90.6 fL (80.0-100.0); RBC 3.31 m/uL (3.80-5.40); WBC 3.1 k/uL (3.8-10.6)
[2019-01-26 07:56] LABS: Anisocytosis Slight; Hypochromasia Marked; Mean Platelet Volume 7.2; Platelet Count 229 k/uL (150-450); RDW 17.4 % (11.5-15.5)
[2019-01-26] MEDS: ESCITALOPRAM 20 MG TAB PO SCH (08:20)
[2019-01-26] MEDS: MIDODRINE 5 MG TAB PO SCH ×3 (08:20→16:30)
[2019-01-26] MEDS: METOPROLOL TARTRATE 25 MG TAB PO SCH (08:20)
[2019-01-26] MEDS: PANTOPRAZOLE 40 MG TABLET PO SCH (08:20)
[2019-01-26] MEDS: SODIUM BICARBONATE TAB 650 MG TAB PO SCH ×2 (08:21→20:42)
[2019-01-26] MEDS: LACTOBACILLUS ACIDOPH & BULGAR 1 EACH PACKET PO SCH ×2 (08:21→20:43)
[2019-01-26] MEDS: CHOLESTYRAMINE (WITH SUGAR) 4 GM PACKET PO SCH ×2 (08:21→16:30)
[2019-01-26] MEDS: SODIUM FERRIC GLUCONAT-SUCROSE 125 MG in SODIUM CHLORIDE 0.9% 100 ML IVPB SCH (09:17)
--- NOTE | 2019-01-26 10:31 | P.PN ---
Subjective Patient is seen in follow-up for acute kidney injury on chronic kidney disease. Patient has chronic kidney disease stage IV with baseline creatinine in the range of 2.6-3. Creatinine was 3.73 on admission and is 2.92 today. She is currently maintained on normal saline at 50 mL an hour. Diuretics are held. Oral intake is fair. No chest pain or shortness of breath. Patient has a chronic King catheter. Vital signs are stable. General: The patient appeared well nourished and normally developed. HEENT: Head exam is unremarkable. Neck is without jugular venous distension. LUNGS: Lungs are clear to auscultation and percussion. Breath sounds decreased. HEART: Rate and Rhythm are regular. First and second heart sounds normal. No murmurs, rubs or gallops. ABDOMEN: Abdominal exam reveals normal bowel sounds. Non-tender and non-distended. No evidence of peritonitis. EXTREMITITES: Trace edema. Objective - Vital Signs Vital signs: Vital Signs Temp 97.6 F 01/26/19 07:28 Pulse 78 01/26/19 07:28 Resp 16 01/26/19 07:28 BP 100/52 01/26/19 07:28 Pulse Ox 92 L 01/26/19 07:28 Intake & Output 01/25/19 01/26/19 01/26/19 18:59 06:59 18:59 Intake Total 540 Output Total 700 Balance 540 -700 Intake: Oral 540 Output: Urine 700 Other: Voiding Method Indwelling Catheter Indwelling Catheter Indwelling Catheter # Voids 1 0 # Bowel Movements 0 - Labs CBC & Chem 7: 01/26/19 06:51 01/25/19 11:32 Labs: Abnormal Lab Results - Last 24 Hours (Table) 01/25/19 01/26/19 Range/Units 11:32 06:51 WBC 3.1 L (3.8-10.6) k/uL RBC 3.31 L (3.80-5.40) m/uL Hgb 9.1 L (11.4-16.0) gm/dL Hct 30.0 L (34.0-46.0) % MCHC 30.2 L (31.0-37.0) g/dL RDW 17.4 H (11.5-15.5) % Chloride 117 H (98-107) mmol/L Carbon Dioxide 21 L (22-30) mmol/L BUN 45 H (7-17) mg/dL Creatinine 2.92 H (0.52-1.04) mg/dL Glucose 101 H (74-99) mg/dL Calcium 8.2 L (8.4-10.2) mg/dL Assessment and Plan Plan: Assessment: 1. Acute kidney injury mostly prerenal improving with IV hydration. Creatinine 3.73 on admission and is 2.92 today. No hydronephrosis noted on CAT scan of the abdomen and pelvis done this admission. 2. Chronic kidney disease stage IV with baseline creatinine in the range of 2.6-3 secondary to obstructive uropathy. 3. Anemia of chronic kidney disease maintained on Aranesp. Iron deficiency noted. Status post 4 doses of IV iron. 4. Chronic diastolic CHF. Currently compensated. 5. History of hydronephrosis with right ureteral stent. 6. Chronic hypotension maintained on midodrine. 7. Metabolic acidosis secondary to chronic kidney disease and IV fluids. Maintained on oral sodium bicarbonate. Plan: Maintain normal saline at 50 mL an hour. Anticipate discharge soon. Follow up outpatient in the next 1-2 weeks. If notices worsening of edema or more than 2-3 pound awaken, can resume Lasix 40 mg once daily.
[2019-01-26] MEDS ORDERED: DARBEPOETIN ALFA 60 MCG/0.3 ML SYRINGE SQ SCH (11:00)
[2019-01-26 12:56] LABS: % Iron Saturation 28.57 (12.00-45.00); Ferritin 565.6 ng/mL (10.0-291.0)
--- NOTE | 2019-01-26 13:28 | PN ---
PROGRESS NOTE This 68-year-old white female with chronic kidney disease, ureteral stenosis with stent placement. Creatinine is slowly improving every day with IV hydration and Lasix being withheld. She is still so weak and fatigued and will need rehab placement up at [facility] for increase PT, OT, for ambulation. PSYCH: She is alert and oriented x3. CARDIOVASCULAR: S1, S2. LUNGS: Clear. GI: Soft. HEMATOLOGY: A 2 to 3+ edema. ASSESSMENT: 1. Anemia of chronic kidney disease. 2. Iron deficiency. 3. Chronic kidney disease stage 4/5. Her creatinine is down to 2.9, was 3.77 on admission. She has no hydronephrosis seen. 4. Metabolic acidosis, improving. 5. Chronic hypotension, improved with midodrine 10 t.i.d. 6. , compensated. Possible discharge home tomorrow. Follow up next 24 to 48 hours. MMODL / IJN: [id number] /
[2019-01-26] MEDS: ASPIRIN 325 MG TAB PO SCH (16:30)
[2019-01-26] MEDS: SODIUM CHLORIDE 0.9% 1,000 ML IV SCH (16:30)
[2019-01-26] MEDS: TAMSULOSIN 0.4 MG CAP.ER.24H PO SCH (20:42)
[2019-01-26] MEDS: METOPROLOL TARTRATE 12.5 MG TAB PO SCH (20:42)
[2019-01-26] MEDS: ACETAMINOPHEN TAB 325 MG TAB PO PRN (20:47)
[2019-01-26] MEDS: LIDOCAINE 5% PATCH TOPICAL SCH (21:55)
[2019-01-26 22:43] VITALS: RESP 18
--- NOTE | 2019-01-26 23:22 | PN ---
PROGRESS NOTE DATE OF SERVICE: 01/26/2019. REASON FOR FOLLOWUP: UTI, diarrhea. INTERVAL HISTORY: The patient is currently afebrile. The patient has been breathing comfortably. Denies having any chest pain or cough. No nausea, no vomiting. No abdominal pain. Apparently her diarrhea has resolved. PHYSICAL EXAMINATION: Blood pressure 133/72 with a pulse of 84, temperature 97.5. She is 92% on room air. General description is a middle-aged female up in the bed in no distress. RESPIRATORY SYSTEM: Unlabored breathing. Clear to auscultation anteriorly. HEART: S1, S2. Regular rate and rhythm. ABDOMEN: Soft. No tenderness. LABS: Hemoglobin is 9.1, white count 3.1. DIAGNOSTIC IMPRESSION AND PLAN: 1. Patient admitted to the hospital with worsening of her kidney function with a history of urinary tract infection. However, this admission UA was negative. The patient's urine was noted to be slightly cloudy. Recommend changing her King catheter to decrease risk of another UTI. 2. Diarrhea, apparently slowly improving. She was unable to provide any stool . Continue with symptomatic treatment. No need for any systemic antibiotic therapy. MMODL / IJN: [id number] /
[2019-01-27] MEDS: LEVOTHYROXINE 50 MCG TAB PO SCH (05:59)
[2019-01-27 06:29] VITALS: BP 122/73; PULSE 69; TEMP 98.4
[2019-01-27] MEDS: METOPROLOL TARTRATE 25 MG TAB PO SCH (08:00)
[2019-01-27] MEDS: ESCITALOPRAM 20 MG TAB PO SCH (08:01)
[2019-01-27] MEDS: LACTOBACILLUS ACIDOPH & BULGAR 1 EACH PACKET PO SCH (08:01)
[2019-01-27] MEDS: MIDODRINE 5 MG TAB PO SCH ×2 (08:01→11:28)
[2019-01-27] MEDS: SODIUM BICARBONATE TAB 650 MG TAB PO SCH (08:01)
[2019-01-27] MEDS: PANTOPRAZOLE 40 MG TABLET PO SCH (08:01)
[2019-01-27] MEDS: CHOLESTYRAMINE (WITH SUGAR) 4 GM PACKET PO SCH (08:01)
[2019-01-27 08:16] LABS: Anisocytosis Slight; Basophils % (A) 1 %; Eosinophils # (A) 0.2 k/uL (0-0.7); Eosinophils % (A) 4 %; HCT 35.8 % (34.0-46.0); HGB 10.5 gm/dL (11.4-16.0); Hypochromasia Marked; Lymphocytes # (A) 1.1 k/uL (1.0-4.8); Lymphocytes % (A) 29 %; MCH 26.7 pg (25.0-35.0); MCHC 29.3 g/dL (31.0-37.0); MCV 91.1 fL (80.0-100.0); Monocytes # (A) 0.3 k/uL (0-1.0); Monocytes % (A) 8 %; Neutrophils % (A) 54 %; Platelet Count 234 k/uL (150-450); RBC 3.93 m/uL (3.80-5.40); RDW 17.3 % (11.5-15.5); WBC 3.7 k/uL (3.8-10.6)
[2019-01-27 08:39] LABS: Albumin 2.5 g/dL (3.5-5.0); Calcium 8.5 mg/dL (8.4-10.2); Potassium 4.5 mmol/L (3.5-5.1); Total Bilirubin 0.4 mg/dL (0.2-1.3); Total Protein 6.5 g/dL (6.3-8.2)
--- NOTE | 2019-01-27 09:04 | P.PN ---
Subjective Patient is seen in follow-up for acute kidney injury on chronic kidney disease. Patient has chronic kidney disease stage IV with baseline creatinine in the range of 2.6-3. Creatinine was 3.73 on admission and is 2.55 today. She is currently maintained on normal saline at 50 mL an hour. Diuretics are held. Oral intake is fair. No chest pain or shortness of breath. Patient has a chronic King catheter. She is nonoliguric. Vital signs are stable. General: The patient appeared well nourished and normally developed. HEENT: Head exam is unremarkable. Neck is without jugular venous distension. LUNGS: Lungs are clear to auscultation and percussion. Breath sounds decreased. HEART: Rate and Rhythm are regular. First and second heart sounds normal. No murmurs, rubs or gallops. ABDOMEN: Abdominal exam reveals normal bowel sounds. Non-tender and non- distended. No evidence of peritonitis. EXTREMITITES: Trace edema. Objective - Vital Signs Vital signs: Vital Signs Temp 98.4 F 01/27/19 05:00 Pulse 69 01/27/19 05:00 Resp 18 01/27/19 05:00 BP 122/73 01/27/19 05:00 Pulse Ox 91 L 01/27/19 05:00 Intake & Output 01/26/19 01/27/19 01/27/19 18:59 06:59 18:59 Intake Total 540 625 Output Total 350 450 Balance 190 175 Weight 68.492 kg Intake: Oral 540 625 Output: Urine 350 450 Other: Voiding Method Indwelling Catheter Indwelling Catheter # Bowel Movements 1 1 - Labs CBC & Chem 7: 01/27/19 07:45 01/27/19 07:45 Labs: Abnormal Lab Results - Last 24 Hours (Table) 01/26/19 01/27/19 01/27/19 Range/Units 06:51 07:45 07:45 WBC 3.7 L (3.8-10.6) k/uL Hgb 10.5 L (11.4-16.0) gm/dL MCHC 29.3 L (31.0-37.0) g/dL RDW 17.3 H (11.5-15.5) % Chloride 118 H (98-107) mmol/L Carbon Dioxide 18 L (22-30) mmol/L BUN 36 H (7-17) mg/dL Creatinine 2.55 H (0.52-1.04) mg/dL TIBC 189 L (228-460) ug/dL Ferritin 565.6 H (10.0-291.0) ng/mL Alkaline Phosphatase 259 H (38-126) U/L Albumin 2.5 L (3.5-5.0) g/dL Assessment and Plan Plan: Assessment: 1. Acute kidney injury mostly prerenal improving with IV hydration. Creatinine 3.73 on admission and is 2.55 today. No hydronephrosis noted on CAT scan of the abdomen and pelvis done this admission. 2. Chronic kidney disease stage IV with baseline creatinine in the range of 2.6-3 secondary to obstructive uropathy. 3. Anemia of chronic kidney disease maintained on Aranesp. Iron deficiency noted. Status post 4 doses of IV iron. 4. Chronic diastolic CHF. Currently compensated. 5. History of hydronephrosis with right ureteral stent. 6. Chronic hypotension maintained on midodrine. 7. Metabolic acidosis secondary to chronic kidney disease and IV fluids. Maintained on oral sodium bicarbonate. Plan: Hep-Lock IV fluids. Anticipate discharge soon. Follow up outpatient in the next 1-2 weeks. Resume Lasix 40 mg orally once daily starting January 29, 2019.
--- NOTE | 2019-01-27 09:44 | P.DS ---
Providers Date of admission: 01/22/19 11:24 Expected date of discharge: 01/27/19 Attending physician: Miles Collado Consults: 01/21/19 17:59 Consult Physician Routine Consulting Provider: Darcie Sawant Consult Reason/Comments: renal failure Do you want consulting provider notified?: Yes 01/21/19 21:34 Consult Physician Routine Consulting Provider: Rex Epps Consult Reason/Comments: uti Do you want consulting provider notified?: Yes 01/22/19 12:28 Consult Physician Routine Consulting Provider: Kevin Porras Consult Reason/Comments: known, questions about stents Do you want consulting provider notified?: Yes [facility] Course: Final Diagnoses: Acute on chronic renal failure stage IV, prerenal without obstructive hydronephr osis per CT. -Acute UTI ruled out in a patient with history of recurrent UTIs -Urinary retention, King catheter changed 01/26/2019 -History of Hydronephrosis, right ureteral stent -Anemia of chronic kidney disease. -Chronic hypotension on Midodrin Hospital course: This a pleasant 68-year-old female admitted with acute on chronic renal failure and multiple other medical issues. Evaluated by nephrology, infectious disease, urology. Abdomen/pelvis CT reported no renal obstruction, suggested small bowel ileus. Received Questran, Diarrhea subsided,having large formed bowel movements. UA negative, recent urine cultures did not suggest need for IV antibiotics. Maintained on IV fluid hydration, diuretics held. Afebrile, vital signs stable. Significant clinical improvement. Cleared by all consults for discharge. Patient is being discharged to [facility] subacute rehab in stable condition with guarded prognosis. EXAM: GENERAL: Alert and oriented 3, no acute distress CARDIOVASCULAR: S1, S2 regular.No murmur, mild edema RESPIRATION: Breath sounds diminished in the bases. No rhonchi or crackles. No bronchial breathing. ABDOMEN: Soft, nondistended, nontender . No guarding. no masses palpable.Bowel sounds heard. NERVOUS SYSTEM: No focal deficits. The impression and plan of care has been dictated as directed. : I performed a history and examination of this patient, discussed the same with the dictator. I agree with the dictator's note ,documented as a scribe. Any additional findings or plans will be noted. Patient Condition at Discharge: Stable Plan - Discharge Summary Discharge Rx Participant: No New Discharge Prescriptions: New Midodrine [ProAmatine] 10 mg PO AC-TID tab Continue Levothyroxine Sodium [Synthroid] 50 mcg PO DAILY@0600 Escitalopram Oxalate [Lexapro] 20 mg PO DAILY Meclizine [Antivert] 12.5 mg PO TID PRN tab PRN Reason: Vertigo Lidocaine 5% Patch [Lidoderm 5% Patch] 1 patch TOPICAL HS patch Nitroglycerin Sl Tabs [Nitrostat] 0.4 mg SUBLINGUAL Q5M PRN tab PRN Reason: Chest Pain Pantoprazole [Protonix] 40 mg PO AC-BRKFST tablet.dr Sodium Bicarbonate Tab 650 mg PO BID tab Acetaminophen Tab [Tylenol] 650 mg PO Q6HR PRN tab PRN Reason: Fever And/ Or Pain Magnesium Hydroxide [Milk of Magnesia Concentrate] 7,200 mg PO DAILY PRN PRN Reason: Constipation Diphenox-Atrop 2.5-0.025 mg [Lomotil] 1 tab PO Q6HR PRN PRN Reason: Diarrhea Bisacodyl [Dulcolax] 10 mg RECTAL DAILY PRN PRN Reason: Constipation Lactobacillus Acidoph & Bulgar [Lactinex] 1 packet PO BID Cholestyramine (with Sugar) [Questran Packet] 4 gm PO BID@0800,1700 Metoprolol Tartrate 25 mg PO DAILY@0800 Metoprolol Tartrate 12.5 mg PO HS@2100 Tamsulosin [Flomax] 0.4 mg PO HS Epoetin Mike [Epogen] 4,000 unit SQ MOWEFR Aspirin 325 mg PO DAILY@1700 Ondansetron HCl [Zofran] 4 mg PO Q6H PRN PRN Reason: Nausea And Vomiting Morphine Sulfate ER [Ms Contin] 15 mg PO Q12HR PRN #6 tab PRN Reason: Pain Changed Furosemide [Lasix] 40 mg PO DAILY #1 tablet Discontinued Midodrine [ProAmatine] 5 mg PO AC-TID tab Na Phos,M-B/Na Phos,Di-Ba [Fleet Adult] 133 ml RECTAL ONCE PRN PRN Reason: Constipation Discharge Medication List Levothyroxine Sodium [Synthroid] 50 mcg PO DAILY@0600 07/04/17 [History] Escitalopram Oxalate [Lexapro] 20 mg PO DAILY 07/06/17 [History] Acetaminophen Tab [Tylenol] 650 mg PO Q6HR PRN tab 12/29/18 [Rx] Lidocaine 5% Patch [Lidoderm 5% Patch] 1 patch TOPICAL HS patch 12/29/18 [Rx] Meclizine [Antivert] 12.5 mg PO TID PRN tab 12/29/18 [Rx] Nitroglycerin Sl Tabs [Nitrostat] 0.4 mg SUBLINGUAL Q5M PRN tab 12/29/18 [Rx] Pantoprazole [Protonix] 40 mg PO AC-BRKFST tablet. 12/29/18 [Rx] Sodium Bicarbonate Tab 650 mg PO BID tab 12/29/18 [Rx] Aspirin 325 mg PO DAILY@1700 01/21/19 [History] Bisacodyl [Dulcolax] 10 mg RECTAL DAILY PRN 01/21/19 [History] Cholestyramine (with Sugar) [Questran Packet] 4 gm PO BID@0800,1700 01/21/19 [H istory] Diphenox-Atrop 2.5-0.025 mg [Lomotil] 1 tab PO Q6HR PRN 01/21/19 [History] Epoetin Mike [Epogen] 4,000 unit SQ MOWEFR 01/21/19 [History] Lactobacillus Acidoph & Bulgar [Lactinex] 1 packet PO BID 01/21/19 [History] Magnesium Hydroxide [Milk of Magnesia Concentrate] 7,200 mg PO DAILY PRN 01/21/19 [History] Metoprolol Tartrate 12.5 mg PO HS@2100 01/21/19 [History] Metoprolol Tartrate 25 mg PO DAILY@0800 01/21/19 [History] Ondansetron HCl [Zofran] 4 mg PO Q6H PRN 01/21/19 [History] Tamsulosin [Flomax] 0.4 mg PO HS 01/21/19 [History] Furosemide [Lasix] 40 mg PO DAILY #1 tablet 01/27/19 [Rx] Midodrine [ProAmatine] 10 mg PO AC-TID tab 01/27/19 [Rx] Morphine Sulfate ER [Ms Contin] 15 mg PO Q12HR PRN #6 tab 01/27/19 [Rx] Follow up Appointment(s)/Referral(s): Miels Collado MD [Primary Care Provider] - 3 Days Mike Felipe DO [STAFF PHYSICIAN] - 1 Week Activity/Diet/Wound Care/Special Instructions: Elena Resume Lasix 40 mg orally once daily starting January 29, 2019. No antibiotic therapy recommended per ID Diet: Regular Activity: As tolerated CBC, BMP in 2 days Discharge Disposition: TRANSFER TO SNF/ECF
[2019-01-28] MEDS ORDERED: DARBEPOETIN ALFA 40 MCG/0.4 ML SYRINGE SQ SCH (09:00)
== END 2019-01-27 11:59 | DRG 683 ==
LOC: EC 16:39 → 4MS4W 18:16 → OBSVTOIN 01-22 11:24
PROVIDERS: ADMIT Family Medicine; ATTEND Family Medicine
DX: N17.0 Acute kidney failure with tubular necrosis (principal); E87.2 Acidosis; I50.32 Chronic diastolic (congestive) heart failure; K56.7 Ileus, unspecified; R64 Cachexia; N18.4 Chronic kidney disease, stage 4 (severe); D63.1 Anemia in chronic kidney disease; E61.1 Iron deficiency; E86.0 Dehydration; I95.1 Orthostatic hypotension; K74.60 Unspecified cirrhosis of liver; R32 Unspecified urinary incontinence; Z79.82 Long term (current) use of aspirin; Z79.890 Hormone replacement therapy; Z79.899 Other long term (current) drug therapy; Z82.5 Family history of asthma and other chronic lower respiratory diseases; Z85.118 Personal history of other malignant neoplasm of bronchus and lung; Z85.3 Personal history of malignant neoplasm of breast; Z85.42 Personal history of malignant neoplasm of other parts of uterus; Z85.820 Personal history of malignant melanoma of skin; Z86.19 Personal history of other infectious and parasitic diseases; Z86.718 Personal history of other venous thrombosis and embolism; Z87.440 Personal history of urinary (tract) infections; Z87.891 Personal history of nicotine dependence; Z90.13 Acquired absence of bilateral breasts and nipples; Z90.710 Acquired absence of both cervix and uterus; Z92.3 Personal history of irradiation; Z88.2 Allergy status to sulfonamides; Z88.8 Allergy status to other drugs, medicaments and biological substances; Z88.1 Allergy status to other antibiotic agents; Z88.0 Allergy status to penicillin; Z91.013 Allergy to seafood
CPT/HCPCS: 36415; 71045; 74176; 80048; 80053; 81003; 82533; 82728; 83540; 83550; 83690; 83735; 85025; 85027; 93005; 96360; 96361; 99285

== ENCOUNTER 2019-03-01 11:00 | Inpatient (IN) | payer MEDICARE, OTHER ==
[2019-03-01] MEDS ORDERED: SODIUM CHLORIDE 0.9% 1,000 ML IV STA (11:59)
[2019-03-01] MEDS ORDERED: VANCOMYCIN IV PER PHARMACY 1 EACH MISC MISCELLANE PRN (12:00)
--- NOTE | 2019-03-01 12:27 | ED ---
Skin/Abscess/FB HPI - General Chief complaint: Skin/Abscess/Foreign Body Stated complaint: Wound Time Seen by Provider: 03/01/19 11:18 Source: patient, EMS, RN notes reviewed, old records reviewed Mode of arrival: EMS Limitations: no limitations - History of Present Illness Initial comments: this is a 5-year-old female here for evaluation patient closely for evaluation regards to back abscess draining weakness dehydration and decreased appetite. Patient has a long medical history was underlying lung CA. Patient significant pain and drainage for back area with severe pain chills weakness but no documented fevers. No other nausea vomiting or diarrhea. Symptoms have been persistent and worsening MD complaint: abscess/boil -: month(s) Location: back Severity: severe Severity scale (1-10): 8 Quality: aching Consistency: constant Improves with: none Worsens with: none Context: none Associated symptoms: fever, chills Treatments Prior to Arrival: none - Related Data Home Medications Medication Instructions Recorded Confirmed Levothyroxine Sodium [Synthroid] 50 mcg PO DAILY@0600 07/04/17 03/01/19 Escitalopram Oxalate [Lexapro] 20 mg PO DAILY@0800 07/06/17 03/01/19 Aspirin 325 mg PO DAILY@1700 01/21/19 03/01/19 Bisacodyl [Dulcolax] 10 mg RECTAL DAILY PRN 01/21/19 03/01/19 Cholestyramine (with Sugar) 4 gm PO BID@0800,1700 01/21/19 03/01/19 [Questran Packet] Diphenox-Atrop 2.5-0.025 mg 1 tab PO Q6HR PRN 01/21/19 03/01/19 [Lomotil] Epoetin Mike [Epogen] 4,000 unit SQ MOWEFR 01/21/19 03/01/19 Lactobacillus Acidoph & Bulgar 1 packet PO BID@0800,1700 01/21/19 03/01/19 [Lactinex] Magnesium Hydroxide [Milk of 7,200 mg PO DAILY PRN 01/21/19 03/01/19 Magnesia Concentrate] Metoprolol Tartrate 12.5 mg PO HS@2100 01/21/19 03/01/19 Metoprolol Tartrate 25 mg PO DAILY@0800 01/21/19 03/01/19 Ondansetron HCl [Zofran] 4 mg PO Q6H PRN 01/21/19 03/01/19 Tamsulosin [Flomax] 0.4 mg PO HS@2100 01/21/19 03/01/19 Furosemide [Lasix] 20 mg PO BID@0600,1400 03/01/19 03/01/19 HYDROcodone/APAP 7.5-325MG [[place] 1 tab PO Q6H PRN 03/01/19 03/01/19 7.5-325] Lidocaine 5% Patch [Lidoderm 5% 1 patch TOPICAL HS@2100 03/01/19 03/01/19 Patch] Liquacel 30 ml PO DAILY@0800 03/01/19 03/01/19 Sodium Bicarbonate Tab 650 mg PO BID@0800,1700 03/01/19 03/01/19 Previous Rx's Medication Instructions Recorded Acetaminophen Tab [Tylenol] 650 mg PO Q6HR PRN tab 12/29/18 Meclizine [Antivert] 12.5 mg PO TID PRN tab 12/29/18 Nitroglycerin Sl Tabs [Nitrostat] 0.4 mg SUBLINGUAL Q5M PRN tab 12/29/18 Pantoprazole [Protonix] 40 mg PO AC-BRKFST tablet. 12/29/18 Midodrine [ProAmatine] 10 mg PO AC-TID tab 01/27/19 Allergies Allergy/AdvReac Type Severity Reaction Status Date / Time VANESSA Inhibitors Allergy Unknown Verified 03/01/19 14:42 baclofen Allergy Confusion Verified 03/01/19 14:42 cefepime HCl [From Maxipime] Allergy Rash/Hives Verified 03/01/19 14:42 cephalexin Allergy Rash/Hives Verified 03/01/19 14:42 ciprofloxacin Allergy Rash/Hives Verified 03/01/19 14:42 clindamycin Allergy Nausea & Verified 03/01/19 14:42 Vomiting erythromycin base Allergy Rash/Hives Verified 03/01/19 14:42 heparin Allergy Unknown Verified 03/01/19 14:42 lisinopril [From Zestril] Allergy Unknown Verified 03/01/19 14:42 lorazepam [From Ativan] Allergy Confusion Verified 03/01/19 14:42 metronidazole [From Flagyl] Allergy Nausea & Verified 03/01/19 14:42 Vomiting penicillin G Allergy Rash/Hives Verified 03/01/19 14:42 shellfish derived [Shellfish] Allergy Swelling Verified 03/01/19 14:42 Sulfa (Sulfonamide Allergy Swelling Verified 03/01/19 14:42 Antibiotics) steroids Allergy Unknown Uncoded 03/01/19 14:42 TUBERCULIN TEST AdvReac Uncoded 03/01/19 14:42 Review of Systems ROS Statement: Those systems with pertinent positive or pertinent negative responses have been documented in the HPI. ROS Other: All systems not noted in ROS Statement are negative. Past Medical History Past Medical History: Blood Disorder, Cancer, Deep Vein Thrombosis (DVT), GI Bleed, Liver Disease, Respiratory Disorder Additional Past Medical History / Comment(s): admit 07/27 for upper GI bleed. 09-10-14 admitted to [facility] with c/o blood in urine and rectal bleeding, DX GI BLEED AND UTI. other hx: Breast Ca x2; Skin Ca squamous and melanoma; uterine ca, lung cancer LOWER LEFT LOBE 70%, c-diff- 6-5-15 snd feb 2017, on xarelto for dvt and portal vein thrombosis. 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 Wound to BACK r/t lung CA, healed 6 months ago History of Any Multi-Drug Resistant Organisms: C-DIFF, MRSA Date of last positivie culture/infection: 09/17/17 MDRO Source:: MRSA URINE Past Surgical History: Adenoidectomy, Appendectomy, Breast Surgery, Cholecystectomy, Hysterectomy, Orthopedic Surgery, Tonsillectomy Additional Past Surgical History / Comment(s): Mastectomy bilateral; Left lower lobectomy 70%; exploratory laparotomy, LASER SX AT [facility] FOR MELANOMA- CURRENTLY HAS 100 SPOTS THAT THEY ARE WATCHING REMMOVED 4 SO FAR.lasik eye sx, past "abcess on back(ecoli) pt stated they had to open a channel,removed 2 ribs and some muscle and it was open to drain to 18 months". surgical repair to Right wrist, right femur, and right hip in 2018 Past Anesthesia/Blood Transfusion Reactions: No Reported Reaction Additional Past Anesthesia/Blood Transfusion Reaction / Comment(s): PAST BLOOD TRANSFUSIONS- NO COMPLICATIONS Past Psychological History: Depression Smoking Status: Former smoker Past Alcohol Use History: None Reported Past Drug Use History: None Reported - Past Family History Father Additional Family Medical History / Comment(s): FROM COMPLICATIONS OF SCHRAPNEL IN BODY Mother Additional Family Medical History / Comment(s): STOMACH PROBLEMS, EMPHYSEMA General Exam - General Exam Comments Initial Comments: patient does have abscess to back abscess middle of his back her back she does get will care but has no improvement in symptoms Limitations: no limitations General appearance: alert, in no apparent distress Head exam: Present: atraumatic, normocephalic, normal inspection Eye exam: Present: normal appearance, PERRL, EOMI. Absent: scleral icterus, conjunctival injection, periorbital swelling ENT exam: Present: normal exam, mucous membranes moist Neck exam: Present: normal inspection. Absent: tenderness, meningismus, lym phadenopathy Respiratory exam: Present: normal lung sounds bilaterally. Absent: respiratory distress, wheezes, rales, rhonchi, stridor Cardiovascular Exam: Present: regular rate, normal rhythm, normal heart sounds. Absent: systolic murmur, diastolic murmur, rubs, gallop, clicks GI/Abdominal exam: Present: soft, normal bowel sounds. Absent: distended, tenderness, guarding, rebound, rigid Extremities exam: Present: normal inspection, full ROM, normal capillary refill. Absent: tenderness, pedal edema, joint swelling, calf tenderness Back exam: Present: normal inspection Neurological exam: Present: alert, oriented X3, CN II-XII intact Psychiatric exam: Present: normal affect, normal mood Skin exam: Present: warm, dry, intact, normal color. Absent: rash Course Vital Signs 03/01/19 11:12 Temperature 98.9 F Pulse Rate 57 L Respiratory 16 Rate Blood Pressure 111/60 O2 Sat by Pulse 96 Oximetry - Reevaluation(s) Reevaluation #1: 03/01/19 15:26 medical records reviewed - Consultations Consultation #1: spoke with Dr. Collado regarding admission is agreeable Procedures - Central Line Placement Right IJ Consent Obtained: verbal consent Patient Placed on Monitor/Pulse Ox: Yes MD Prep: mask, gown, gloves Central Line Prep: Povidone-Iodine 1% Local Anesthesia Used: Lidocaine 1% Ultrasound Used for Placement: Yes Central Line Lumen Inserted: triple Bloods Obtained for Lab: Yes Central Line Position: good blood return, all ports aspirated, flushed, capped, sutured in place with 3-0 nylon Dressing Applied: Tegaderm Post Procedure X-Ray: tip of catheter in good position Patient Tolerated Procedure: well Complications: none Medical Decision Making - Medical Decision Making 68 female here for evaluation patient significant back abscess chronic wound with drainage purulent drainage currently. Patient will be admitted for IV antibiotics and wound care - Lab Data Result diagrams: 03/01/19 14:47 03/01/19 14:47 Lab Results 03/01/19 03/01/19 03/01/19 Range/Units 14:47 14:47 14:47 WBC 4.8 (3.8-10.6) k/uL RBC 4.30 (3.80-5.40) m/uL Hgb 11.5 (11.4-16.0) gm/dL Hct 38.1 (34.0-46.0) % MCV 88.6 (80.0-100.0) fL MCH 26.7 (25.0-35.0) pg MCHC 30.1 L (31.0-37.0) g/dL RDW 14.9 (11.5-15.5) % Plt Count 241 (150-450) k/uL Neutrophils % 65 % Lymphocytes % 25 % Monocytes % 7 % Eosinophils % 1 % Basophils % 1 % Neutrophils # 3.1 (1.3-7.7) k/uL Lymphocytes # 1.2 (1.0-4.8) k/uL Monocytes # 0.3 (0-1.0) k/uL Eosinophils # 0.0 (0-0.7) k/uL Basophils # 0.0 (0-0.2) k/uL Hypochromasia Marked Sodium 140 (137-145) mmol/L Potassium 4.1 (3.5-5.1) mmol/L Chloride 108 H (98-107) mmol/L Carbon Dioxide 26 (22-30) mmol/L Anion Gap 6 mmol/L BUN 56 H (7-17) mg/dL Creatinine 2.63 H (0.52-1.04) mg/dL Est GFR (CKD-EPI)AfAm 21 (>60 ml/min/1.73 sqM) Est GFR (CKD-EPI)NonAf 18 (>60 ml/min/1.73 sqM) Glucose 97 (74-99) mg/dL Plasma Lactic Acid Alex 0.8 (0.7-2.0) mmol/L Calcium 8.3 L (8.4-10.2) mg/dL Phosphorus 3.7 (2.5-4.5) mg/dL Magnesium 1.4 L (1.6-2.3) mg/dL Total Bilirubin 0.6 (0.2-1.3) mg/dL AST 22 (14-36) U/L ALT 7 (4-34) U/L Alkaline Phosphatase 294 H (38-126) U/L Creatine Kinase <20 L (30-135) U/L Troponin I (0.000-0.034) ng/mL Total Protein 6.3 (6.3-8.2) g/dL Albumin 2.5 L (3.5-5.0) g/dL 03/01/19 Range/Units 14:47 WBC (3.8-10.6) k/uL RBC (3.80-5.40) m/uL Hgb (11.4-16.0) gm/dL Hct (34.0-46.0) % MCV (80.0-100.0) fL MCH (25.0-35.0) pg MCHC (31.0-37.0) g/dL RDW (11.5-15.5) % Plt Count (150-450) k/uL Neutrophils % % Lymphocytes % % Monocytes % % Eosinophils % % Basophils % % Neutrophils # (1.3-7.7) k/uL Lymphocytes # (1.0-4.8) k/uL Monocytes # (0-1.0) k/uL Eosinophils # (0-0.7) k/uL Basophils # (0-0.2) k/uL Hypochromasia Sodium (137-145) mmol/L Potassium (3.5-5.1) mmol/L Chloride (98-107) mmol/L Carbon Dioxide (22-30) mmol/L Anion Gap mmol/L BUN (7-17) mg/dL Creatinine (0.52-1.04) mg/dL Est GFR (CKD-EPI)AfAm (>60 ml/min/1.73 sqM) Est GFR (CKD-EPI)NonAf (>60 ml/min/1.73 sqM) Glucose (74-99) mg/dL Plasma Lactic Acid Alex (0.7-2.0) mmol/L Calcium (8.4-10.2) mg/dL Phosphorus (2.5-4.5) mg/dL Magnesium (1.6-2.3) mg/dL Total Bilirubin (0.2-1.3) mg/dL AST (14-36) U/L ALT (4-34) U/L Alkaline Phosphatase (38-126) U/L Creatine Kinase (30-135) U/L Troponin I <0.012 (0.000-0.034) ng/mL Total Protein (6.3-8.2) g/dL Albumin (3.5-5.0) g/dL - EKG Data -: EKG Interpreted by Me (EKG shows sinus rhythm rate of 63, WA 126, QRS 88, QTC 429) - Radiology Data Radiology results: report reviewed (CT of abscess does showed abscess with no air underneath no deepness no evidence of osteo-), image reviewed Disposition Clinical Impression: Back abscess, ARF (acute renal failure), Dehydration, Weakness Disposition: ADMITTED IP TO THIS HOSP Condition: Fair Is patient prescribed a controlled substance at d/c from ED?: No Referrals: Miles Collado MD [Primary Care Provider] - 1-2 days
[2019-03-01] MEDS ORDERED: HYDROcodone/APAP 7.5-325MG 1 EACH TAB PO ONE (13:27)
[2019-03-01 15:07] LABS: Basophils % (A) 1 %; Eosinophils % (A) 1 %; HCT 38.1 % (34.0-46.0); HGB 11.5 gm/dL (11.4-16.0); Hypochromasia Marked; Lymphocytes # (A) 1.2 k/uL (1.0-4.8); Lymphocytes % (A) 25 %; MCH 26.7 pg (25.0-35.0); MCHC 30.1 g/dL (31.0-37.0); MCV 88.6 fL (80.0-100.0); Mean Platelet Volume 7.9; Monocytes # (A) 0.3 k/uL (0-1.0); Monocytes % (A) 7 %; Neutrophils # (A) 3.1 k/uL (1.3-7.7); Neutrophils % (A) 65 %; Platelet Count 241 k/uL (150-450); RDW 14.9 % (11.5-15.5); WBC 4.8 k/uL (3.8-10.6)
[2019-03-01 15:09] LABS: ALT 7 U/L (4-34); AST 22 U/L (14-36); African American GFR (CKD) 21 (>60 ml/min/1.73 sqM); Albumin 2.5 g/dL (3.5-5.0); Alkaline Phosphatase 294 U/L (38-126); Anion Gap 6 mmol/L; Blood Urea Nitrogen 56 mg/dL (7-17); Calcium 8.3 mg/dL (8.4-10.2); Carbon Dioxide 26 mmol/L (22-30); Chloride 108 mmol/L (98-107); Creatine Kinase <20 U/L (30-135); Glucose 97 mg/dL (74-99); Magnesium 1.4 mg/dL (1.6-2.3); Non-African American GFR(CKD) 18 (>60 ml/min/1.73 sqM); Phosphorus 3.7 mg/dL (2.5-4.5); Potassium 4.1 mmol/L (3.5-5.1); Sodium 140 mmol/L (137-145); Total Bilirubin 0.6 mg/dL (0.2-1.3); Total Protein 6.3 g/dL (6.3-8.2)
[2019-03-01 15:16] LABS: Prothrombin Time 10.9 sec (9.0-12.0)
[2019-03-01 15:48] LABS: Partial Thromboplastin Time 20.3 sec (22.0-30.0)
[2019-03-01] MEDS: VANCOMYCIN 1,500 MG in SODIUM CHLORIDE 0.9% 250 ML IVPB ONE ×2 (16:09→16:12)
[2019-03-01] MEDS: SODIUM CHLORIDE 0.9% 1,000 ML IV SCH (16:12)
[2019-03-01] MEDS: HYDROmorphone 1 MG/ML 1 ML SYRINGE IVP PRN ×2 (16:20→22:20)
--- NOTE | 2019-03-01 17:50 | CT ---
EXAMINATION TYPE: CT thor lumbar spine wo con DATE OF EXAM: 03/01/2019 COMPARISON: Prior whole-body CT December 03, 2018. HISTORY: non-healing wound on back rule out acute fracture. CT DLP: 1145.3 mGycm Automated exposure control for dose reduction was used. FINDINGS: Exam suboptimal due to patient's underlying rotary scoliosis. There is dextroconvex scoliotic curvatu re mid to lower thoracic spine and levoconvex scoliotic curvature lower lumbar spine. Osseous structu res are demineralized. Moderate height loss involving T10 vertebra redemonstrated without lucency to suggest acute fracture. Moderate disc space narrowing and vacuum disc phenomenon L5-S1 level redemons trated. No acute displaced fracture is evident. Site of nonhealing wound not specified. No well-formed fluid collection or abscess noted. There is so me diffuse subcutaneous edema and skin thickening. There is likely wound or overlying bandage materia l near T10 vertebra axial image 64. There is some skin thickening and loss of subcutaneous fat plane at this level. This is at the peak of thoracic kyphosis. There is partial visualization of underlying emphysematous change with small right greater than left pleural effusions on current study. Some nodular scar like opacities are more prominent on current st udy left upper lung medially axial image 54 and posterior right upper lobe axial image 66. Consider f ollow-up. There is bibasilar linear scarring and/or atelectasis. Ascites surrounds the liver. There i s partial visualization of bilateral ureter stents. There is partial visualization at least moderate fluid in the pelvis. IMPRESSION: Soft tissue wound likely posterior T10 level at peak of thoracic curvature. There is evid ence of soft tissue infection at this level. No well-formed fluid collection or drainable abscess not ed.
[2019-03-01] MEDS: SODIUM CHLORIDE 0.9% 500 ML 500 ML IV SCH ×3 (18:08→20:51)
[2019-03-01] MEDS ORDERED: ACETAMINOPHEN TAB 325 MG TAB PO PRN (19:46)
[2019-03-01] MEDS ORDERED: ONDANSETRON 4 MG TAB PO PRN (19:46)
[2019-03-01] MEDS ORDERED: DIPHENOX-ATROP 2.5-0.025 MG 1 EACH TAB PO PRN (19:46)
[2019-03-01] MEDS ORDERED: MECLIZINE 12.5 MG TAB PO PRN (19:46)
[2019-03-01] MEDS ORDERED: NITROGLYCERIN SL TABS 0.4 MG TAB SUBLINGUAL PRN (19:46)
[2019-03-01] MEDS ORDERED: MAGNESIUM HYDROXIDE 2,400 MG/10 ML CUP PO PRN (19:46)
[2019-03-01] MEDS ORDERED: BISACODYL 10 MG SUPP RECTAL PRN (19:46)
[2019-03-01] MEDS: TAMSULOSIN 0.4 MG CAP.ER.24H PO SCH (20:53)
[2019-03-01] MEDS: METOPROLOL TARTRATE 12.5 MG TAB PO SCH (20:53)
[2019-03-01] MEDS: LIDOCAINE 5% PATCH TOPICAL SCH (20:53)
[2019-03-01 21:48] LABS: Amorphous Sediment,Urine Occasional /hpf; Appearance,Urine Turbid (Clear); Bilirubin,Urine Negative (Negative); Blood,Urine Moderate (Negative); Color,Urine Yellow; Glucose,Urine (UA) Negative (Negative); Ketones,Urine Negative (Negative); Leukocyte Esterase,Urine Large (Negative); Mucus,Urine Few /hpf; Nitrite,Urine Negative (Negative); Protein,Urine 2+ (Negative); RBC,Urine 152 /hpf (0-5); Specific Gravity,Urine 1.015 (1.001-1.035); Urobilinogen,Urine <2.0 mg/dL (<2.0); WBC,Urine >182 /hpf (0-5)
[2019-03-02] MEDS: LEVOTHYROXINE 50 MCG TAB PO SCH (05:57)
[2019-03-02] MEDS: SODIUM CHLORIDE 0.9% 1,000 ML IV SCH ×3 (05:58→15:32)
[2019-03-02] MEDS: HYDROmorphone 1 MG/ML 1 ML SYRINGE IVP PRN (06:00)
[2019-03-02] MEDS ORDERED: FUROSEMIDE 20 MG TAB PO SCH (06:00)
[2019-03-02] MEDS ORDERED: NON FORMULARY DRUG (Liquacel 30 ML) PO SCH (08:00)
--- NOTE | 2019-03-02 08:34 | HP ---
HISTORY AND PHYSICAL This 68-year-old white female who is admitted for worsening thoracic ulceration, possible osteomyelitis, doubling in size over the past week [facility] Past medical history of underlying lung cancer. She had elevated liver enzymes and alkaline phosphatase, worsening elevated C-reactive protein, worsening wound size and pain and discomfort of significant nature in her back with severe pain and chills and weakness at which time she was admitted for IV antibiotics and Infectious Disease consult to rule out osteomyelitis of the thoracic spine. As mentioned, she has a history of ureteral stenosis with ureteral stents, chronic renal disease secondary to above, cirrhosis, diastolic CHF, multiple cancers in the past. Await infectious disease consult. PAST MEDICAL HISTORY: She has a past medical history of depression, hypothyroidism, hypertension, diastolic heart failure, chronic renal disease stage 4 to 5, chronic ureteral stenosis with ureteral stents secondary to chemotherapy in the past. HOME MEDICATIONS: She takes: 1. Sodium bicarb. 2. Metoprolol tartrate. 3. Flomax. 4. Lasix. 5. Synthroid for hypothyroidism. 6. Lexapro for depression. 7. Aspirin 325 daily. 8. Colace. 9. Questran for diarrhea. ALLERGIES: Allergies are to VANESSA INHIBITORS, BACLOFEN, KEFLEX, CIPRO, CLINDA, ERYTHROMYCIN, LISINOPRIL LORAZEPAM FLAGYL PEN G, SULFA. REVIEW OF SYSTEMS: Fourteen-point review of systems: weakness, fatigue, fever, chills, as mentioned above. Severe pain 10 in 10 in the back area where the wound is on her thoracic spine. History of scoliosis in the back, DVT, GI bleed, liver disease, nonalcoholic cirrhosis, C difficile, MRSA. SURGERIES: Adenoidectomy, appendectomy, breast surgery, cholecystectomy, hysterectomy, orthopedic surgery, tonsillectomy, mastectomy, left lower lobe lobectomy, history of melanoma. She is a former smoker. No alcohol. No illicit drugs. FAMILY HISTORY: Father of shrapnel in body. Mother stomach problems, emphysema. PHYSICAL EXAMINATION: Vital signs are reviewed. She was weak, fatigued, looks her stated age. CARDIOVASCULAR: S1, S2. LUNGS: Rales at the base. GI: Soft. Diffuse tenderness, diffuse swelling. EXTREMITIES: 2 to 3+ edema, INTEGUMENT: Shows a deepening dermal wound over the thoracic spine over the area scoliosis and osteoporosis, worsening in size maybe 3 to 4 inches x 1 inch about a half inch deep. ASSESSMENT: 1. Cellulitis abscess of the thoracic spine, possible osteomyelitis. Wound cultures, IV antibiotics. Infectious disease consult. 2. Acute on chronic renal insufficiency. Will see Dr. Sawant. She is near her baseline in the mid 2s. 3. Protein calorie malnutrition. 4. Hypotension. 5. Hypothyroidism. 6. Dehydration. Continue home medications. Continue IV antibiotics. Thoracic lumbar CT shows soft tissue wound likely posterior to the T10 level at peak of thoracic curvature, soft tissue infection at this level. Await MRI versus bone scan, which will be ordered. Infectious Disease consult pending. MMODL / IJN: [id number] /
[2019-03-02] MEDS ORDERED: ENOXAPARIN 40 MG/0.4 ML SYRINGE SQ SCH (09:00)
[2019-03-02] MEDS ORDERED: DARBEPOETIN ALFA 40 MCG/0.4 ML SYRINGE SQ SCH (09:00)
[2019-03-02] MEDS: METOPROLOL TARTRATE 25 MG TAB PO SCH (10:50)
[2019-03-02] MEDS: LACTOBACILLUS ACIDOPH & BULGAR 1 EACH PACKET PO SCH ×2 (10:50→17:00)
[2019-03-02] MEDS: CHOLESTYRAMINE (WITH SUGAR) 4 GM PACKET PO SCH ×2 (10:51→17:00)
[2019-03-02] MEDS: SODIUM BICARBONATE TAB 650 MG TAB PO SCH ×2 (10:51→17:00)
[2019-03-02] MEDS: MIDODRINE 5 MG TAB PO SCH ×3 (10:51→17:47)
[2019-03-02] MEDS: PANTOPRAZOLE 40 MG TABLET PO SCH (10:51)
[2019-03-02] MEDS: ESCITALOPRAM 20 MG TAB PO SCH (10:52)
[2019-03-02 13:21] VITALS: BMI 25.5
[2019-03-02] MEDS: HYDROcodone/APAP 10-325MG 1 EACH TAB PO PRN ×3 (13:44→23:38)
--- NOTE | 2019-03-02 14:25 | PN ---
PROGRESS NOTE A 68-year-old white female admitted with drug-resistant UTI and severe vertebral abscess on the vertebral thoracic spine on IV vancomycin. Her creatinine is improved since yesterday down from 2.6 down to 2.2. MRI is pending. CARDIOVASCULAR: S1-S2. LUNGS: Clear. GI: Soft. HEMATOLOGY: Negative Homans, 2 to 3+ pedal edema. ASSESSMENT: 1. Thoracic vertebral abscess versus cellulitis of the vertebral spine. 2. Drug-resistant UTI. MRI is pending. Awaiting consultation by Infectious Disease and renal physicians. MMODL / IJN: [id number] /
--- NOTE | 2019-03-02 15:26 | CONS ---
CONSULTATION REASON FOR CONSULT: Renal failure. HISTORY OF PRESENT ILLNESS: Patient is a 68-year-old female with history of chronic kidney disease NKF stage III-IV with baseline creatinine about 2.6 mg/dL secondary to obstructive uropathy, nephrolithiasis. Patient has history of bilateral ureteral stents, which was last performed on 12/17/2018. At this time, her renal function is at baseline. She was admitted with complaints of back pain. Patient had a thoracic and lumbar spine CT done yesterday which shows soft tissue wound and infection around the T10 level. Patient is currently complaining of back pain. She has not had any fevers. Her creatinine was 2.6 yesterday. It is down to 2.26 today. Patient is maintained on IV fluids. She is also on vancomycin and a small dose of Lasix. PAST MEDICAL HISTORY: CKD stage IV, secondary to obstructive uropathy, hypothyroidism, hypertension, diastolic heart failure, history of nephrolithiasis and obstructive uropathy, status post bilateral ureteral stents, history of GI bleed, history of chronic and recurrent UTI, history of uterine cancer, status post hysterectomy, history of melanoma status post resection, history of breast cancer status post mastectomy, history of C difficile colitis, GI bleed. PAST SURGICAL HISTORY: Cholecystectomy, explorative laparotomy, appendectomy, adenoidectomy, mastectomy, hysterectomy, tonsillectomy, ureteral stent exchange, left lower lung lobectomy. SOCIAL HISTORY: Patient is a former smoker. No history of drug abuse or alcohol abuse. MEDICATIONS: Prior to admission included Flomax, Protonix, Zofran, Nitro-Stat, midodrine, metoprolol, Antivert, Vicodin, Lasix, Epogen, aspirin, Tylenol. PHYSICAL EXAMINATION: Patient is currently comfortable, awake, not in any acute distress. Blood pressure this morning 107/58, heart rate 65 per minute, she is afebrile. Examination of the heart S1, S2. Examination of lungs decreased breath sounds bases. Abdomen is soft, nontender. Examination of the lower extremities shows chronic edema. Currently, patient has compression socks on. TARIFF CLERK exam grossly intact. LABS: Show sodium 140, potassium 4.1, chloride 108, BUN 56, creatinine 2.63 yesterday, down to 2.26 today. UA shows WBCs more than 182. ASSESSMENT: 1. Chronic kidney disease, NKF stage IV, renal function close to baseline. 2. Acute kidney injury, mostly associated with underlying infection currently improved. Patient is on IV fluids. However, I will decrease the rate of IV fluids as patient previously has had significant edema and volume overload. 3. Cellulitis/abscess at the thoracic spine, maintained on antibiotics. Infectious disease on consult. 4. Hypothyroidism. 5. Dehydration. 6. History of obstructive uropathy with bilateral ureteral stents on 12/17/2018. PLAN: Decrease IV fluids. Since renal function has improved. I will continue with the Lasix as patient has tendency to severe lower extremity edema and volume overload. Once patient is eating well, we will discontinue the IV fluids. Repeat labs in a.m. and continue to avoid nephrotoxic agents. DC the Aranesp as hemoglobin 11.5 g/dL. Follow up on urine cultures. This may be asymptomatic bacteriuria. Thank you for this consultation. Will continue to follow the patient with you during the hospitalization. MMODL / IJN: [id number] /
--- NOTE | 2019-03-02 16:49 | MR ---
EXAMINATION TYPE: MR lumbar spine wo con DATE OF EXAM: 03/02/2019 COMPARISON: CT scan 03/01/2019 HISTORY: Back abscess Multiplanar multiecho imaging of the thoracolumbar spine was performed without contrast. There is T10 anterior wedging with 50% loss of height. There is mild thoracic kyphotic deformity. The re is mild posterior spurring of the endplates at T9-10 and T10-11. Thoracic spinal cord has normal s ignal pattern. There is no spinal stenosis. There is no sign of a cord mass. Exam is limited by motio n. T2 images show no increased signal in the vertebra to suggest an acute fracture. There is no evide nce of thoracic paraspinal mass. There is evidence of right pleural effusion. There is smaller left p leural effusion. There is some subcutaneous edema over the thoracic and lumbar spine. IMPRESSION: Old T10 compression fracture unchanged compared to chest x-ray of 10/02/2014. Bilateral pleural effusions. No spinal stenosis. Subcutaneous edema over the lower thoracic spine and lumbar spine. No discrete fluid collection seen to suggest an abscess. No change compared to yesterday. No evidence of osteomyelitis.
[2019-03-02] MEDS: HYDROmorphone 0.5 MG/0.5 ML SYRINGE IVP PRN (17:00)
[2019-03-02] MEDS: ASPIRIN 325 MG TAB PO SCH (17:00)
[2019-03-02] MEDS ORDERED: VANCOMYCIN 1,250 MG in SODIUM CHLORIDE 0.9% 250 ML IVPB SCH (18:00)
[2019-03-02] MEDS: METOPROLOL TARTRATE 12.5 MG TAB PO SCH (21:26)
[2019-03-02] MEDS: TAMSULOSIN 0.4 MG CAP.ER.24H PO SCH (21:26)
[2019-03-02] MEDS: LIDOCAINE 5% PATCH TOPICAL SCH (21:26)
--- NOTE | 2019-03-02 22:42 | P.CONS ---
History of Present Illness - Reason for Consult Consult date: 03/02/19 back abscess Requesting physician: Miles Collado - Chief Complaint back pain and draining wound x week - History of Present Illness Patient is a 68-year-old female who was brought into the ER at [facility] yesterday for evaluation of a wound to the mid back area which apparently the patient has for couple of weeks patient mentioning it was a small sore that has gradually increased in size and has become painful pain is described to be sharp and dull aching almost 10 out of 10 when severe with some relief with the pain medication patient also complaining of drainage from the wound that apparently has increased recently but denies high-grade fever or chills the symptoms the patient has been evaluated by the ER physician patient on arrival to the ER was afebrile her white count was normal patient had did have a CT of the thoracolumbar spine done which did show some possibility of infection at the T10 spine level patient did have local wound cultures obtained as well as blood culture the patient was started on vancomycin admit to the hospital infectious was consulted for further recommendation about antibiotic therapy, Patient also have a history of complicated urinary tract infection with an infected ureteral stent that was last changed in December 2018 she did have a King catheter draining significant cloudy urine however the patient did not recall when the King catheter has been changed loss but denies any suprapubic pain some nausea but no vomiting and no diarrhea. Review of Systems Positive point has been mentioned in HPI rest of the systems are negative Past Medical History Past Medical History: Blood Disorder, Cancer, Deep Vein Thrombosis (DVT), GI Bleed, Liver Disease, Respiratory Disorder Additional Past Medical History / Comment(s): admit 07/27 for upper GI bleed. -05-23 admitted to [facility] with c/o blood in urine and rectal bleeding, DX GI BLEED AND UTI. other hx: Breast Ca x2; Skin Ca squamous and melanoma; uterine ca, lung cancer LOWER LEFT LOBE 70%, c-diff- 6-5-15 snd feb 2017, on xarelto for dvt and portal vein thrombosis. 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 Wound to BACK r/t lung CA, healed 6 months ago History of Any Multi-Drug Resistant Organisms: C-DIFF, MRSA Year Discovered:: 09/17/17 MDRO Source:: MRSA URINE Past Surgical History: Adenoidectomy, Appendectomy, Breast Surgery, Cholecystectomy, Hysterectomy, Orthopedic Surgery, Tonsillectomy Additional Past Surgical History / Comment(s): Mastectomy bilateral; Left lower lobectomy 70%; exploratory laparotomy, LASER SX AT [facility] FOR [facility]ANOMA- CURRENTLY HAS 100 SPOTS THAT THEY ARE WATCHING REMMOVED 4 SO FAR.lasik eye sx, past "abcess on back(ecoli) pt stated they had to open a channel,removed 2 ribs and some muscle and it was open to drain to 18 months". surgical repair to Right wrist, right femur, and right hip in 2018 Past Anesthesia/Blood Transfusion Reactions: No Reported Reaction Additional Past Anesthesia/Blood Transfusion Reaction / Comm: PAST BLOOD TRANSFUSIONS- NO COMPLICATIONS Past Psychological History: Depression Additional Psychological History / Comment(s): LOW DOSE LEXAPRO, CURRENTLY NO DEPRESSION, PT normally lives at home with her zeeshan, however currently patient resides at [facility] due to right arm and hip fractures . pt started she had just recently started working w/pt getting up w/walker and assistance and transfer w/assistance to w/c Smoking Status: Former smoker Past Alcohol Use History: None Reported Additional Past Alcohol Use History / Comment(s): STARTED SMOKING AT AGE 13, SMOKED 1 PPD SMOKED FOR 3 YEARS THEN CUT DOWN TO ONLY SMOKING WHEN OUT WITH FRIENDS.QUIT 1978. Past Drug Use History: None Reported - Past Family History Father Additional Family Medical History / Comment(s): FROM COMPLICATIONS OF SCHRAPNEL IN BODY Mother Additional Family Medical History / Comment(s): STOMACH PROBLEMS, EMPHYSEMA Medications and Allergies Home Medications Medication Instructions Recorded Confirmed Type Levothyroxine Sodium [Synthroid] 50 mcg PO DAILY@0600 07/04/17 03/01/19 History Escitalopram Oxalate [Lexapro] 20 mg PO DAILY@0800 07/06/17 03/01/19 History Acetaminophen Tab [Tylenol] 650 mg PO Q6HR PRN tab 12/29/18 03/01/19 Rx Meclizine [Antivert] 12.5 mg PO TID PRN tab 12/29/18 03/01/19 Rx Nitroglycerin Sl Tabs [Nitrostat] 0.4 mg SUBLINGUAL Q5M PRN tab 12/29/18 03/01/19 Rx Pantoprazole [Protonix] 40 mg PO AC-BRKFST tablet. 12/29/18 03/01/19 Rx Aspirin 325 mg PO DAILY@1700 01/21/19 03/01/19 History Bisacodyl [Dulcolax] 10 mg RECTAL DAILY PRN 01/21/19 03/01/19 History Cholestyramine (with Sugar) 4 gm PO BID@0800,1700 01/21/19 03/01/19 History [Questran Packet] Diphenox-Atrop 2.5-0.025 mg 1 tab PO Q6HR PRN 01/21/19 03/01/19 History [Lomotil] Epoetin Mike [Epogen] 4,000 unit SQ MOWEFR 01/21/19 03/01/19 History Lactobacillus Acidoph & Bulgar 1 packet PO BID@0800,1700 01/21/19 03/01/19 History [Lactinex] Magnesium Hydroxide [Milk of 7,200 mg PO DAILY PRN 01/21/19 03/01/19 History Magnesia Concentrate] Metoprolol Tartrate 12.5 mg PO HS@2100 01/21/19 03/01/19 History Metoprolol Tartrate 25 mg PO DAILY@0800 01/21/19 03/01/19 History Ondansetron HCl [Zofran] 4 mg PO Q6H PRN 01/21/19 03/01/19 History Tamsulosin [Flomax] 0.4 mg PO HS@2100 01/21/19 03/01/19 History Midodrine [ProAmatine] 10 mg PO AC-TID tab 01/27/19 03/01/19 Rx Furosemide [Lasix] 20 mg PO BID@0600,1400 03/01/19 03/01/19 History HYDROcodone/APAP 7.5-325MG [[place] 1 tab PO Q6H PRN 03/01/19 03/01/19 History 7.5-325] Lidocaine 5% Patch [Lidoderm 5% 1 patch TOPICAL HS@2100 03/01/19 03/01/19 History Patch] Liquacel 30 ml PO DAILY@0800 03/01/19 03/01/19 History Sodium Bicarbonate Tab 650 mg PO BID@0800,1700 03/01/19 03/01/19 History Allergies Allergy/AdvReac Type Severity Reaction Status Date / Time VANESSA Inhibitors Allergy Unknown Verified 03/01/19 14:42 baclofen Allergy Confusion Verified 03/01/19 14:42 cefepime HCl [From Maxipime] Allergy Rash/Hives Verified 03/01/19 14:42 cephalexin Allergy Rash/Hives Verified 03/01/19 14:42 ciprofloxacin Allergy Rash/Hives Verified 03/01/19 14:42 clindamycin Allergy Nausea & Verified 03/01/19 14:42 Vomiting erythromycin base Allergy Rash/Hives Verified 03/01/19 14:42 heparin Allergy Unknown Verified 03/01/19 14:42 lisinopril [From Zestril] Allergy Unknown Verified 03/01/19 14:42 lorazepam [From Ativan] Allergy Confusion Verified 03/01/19 14:42 metronidazole [From Flagyl] Allergy Nausea & Verified 03/01/19 14:42 Vomiting penicillin G Allergy Rash/Hives Verified 03/01/19 14:42 shellfish derived [Shellfish] Allergy Swelling Verified 03/01/19 14:42 Sulfa (Sulfonamide Allergy Swelling Verified 03/01/19 14:42 Antibiotics) steroids Allergy Unknown Uncoded 03/01/19 14:42 TUBERCULIN TEST AdvReac Uncoded 03/01/19 14:42 Physical Exam Vitals: Vital Signs Temp Pulse Resp BP Pulse Ox 03/02/19 12:22 98.3 F 66 16 113/66 94 L 03/02/19 10:13 16 03/02/19 05:21 98.1 F 65 14 107/58 90 L 03/01/19 20:25 98.2 F 81 12 102/61 94 L 03/01/19 16:53 98.4 F 64 18 97/51 94 L Intake and Output 03/02/19 03/02/19 03/02/19 06:59 14:59 22:59 Intake Total 2060 Output Total 450 Balance -450 0 Intake: Intake, IV Titration 1160 Amount Sodium Chloride 0.9% 1, 910 000 ml @ 60 mls/hr IV . [id number] [facility] Rx#:[id number] Vancomycin 1,250 mg In 250 Sodium Chloride 0.9% 250 ml @ 125 mls/hr IVPB Q36H [facility] Rx#:[id number] Oral 900 Output: Urine 450 Other: Voiding Method Indwelling Catheter Indwelling Catheter # Bowel Movements 1 2 Weight 78.5 kg GENERAL DESCRIPTION: Elderly female lying in bed, no distress. No tachypnea or accessory muscle of respiration use. HEENT: Shows Pallor , no scleral icterus. Oral mucous membrane is dry. NECK: Trachea central, no thyromegaly. LUNGS: Unlabored breathing. Decreased breath sound at the base. No wheeze or crackle. HEART: S1, S2, regular rate and rhythm. ABDOMEN: Soft, no tenderness , guarding or rigidity EXTREMITIES: No edema of feet. SKIN: No rash, no masses palpable. Wound to the mid thoracic spine area posteriorly with some slough tissue no significant surrounding swelling redness or any foul-smelling drainage NEUROLOGICAL: The patient is awake, alert, oriented x3, mood and affect normal. Results CBC & Chem 7: 03/01/19 14:47 03/02/19 07:10 Labs: Abnormal Lab Results - Last 24 Hours (Table) 03/01/19 03/02/19 Range/Units 21:30 07:10 Creatinine 2.26 H (0.52-1.04) mg/dL Urine Appearance Turbid H (Clear) Urine Protein 2+ H (Negative) Urine Blood Moderate H (Negative) Ur Leukocyte Esterase Large H (Negative) Urine RBC 152 H (0-5) /hpf Urine WBC >182 H (0-5) /hpf Amorphous Sediment Occasional H (None) /hpf Urine Mucus Few H (None) /hpf Microbiology - Last 24 Hours (Table) 03/01/19 23:22 Wound Culture - Preliminary Back 03/01/19 23:22 Anaerobic Culture - Preliminary Back 03/01/19 21:30 Urine Culture - Preliminary Urine,Clean Catch Assessment and Plan Assessment: 1-patient with stage III pressure ulcer to the back area at the level of T10 thoracic spine wound base that shows evidence of slough tissue with no significant surrounding swelling redness per the patient complaining of poor drainage from the area underlying infection less likely but not entirely excluded likely from gram-positive skin lula 2-Patient with multiple antibiotic allergies that would limit the number of antibiotics safe to use 3-patient with a chronic renal insufficiency and high risk of nephrotoxicity from the vancomycin (1) Stage III pressure ulcer of back Current Visit: Yes Status: Acute Code(s): L89.103 - PRESSURE ULCER OF UNSP ECIFIED PART OF BACK, STAGE 3 SNOMED Code(s): 122588971 (2) CRI (chronic renal insufficiency) Current Visit: Yes Status: Acute Code(s): N18.9 - CHRONIC KIDNEY DISEASE, UNSPECIFIED SNOMED Code(s): 864575338 (3) Allergy to multiple antibiotics Current Visit: No Status: Acute Code(s): Z88.1 - ALLERGY STATUS TO OTHER ANTIBIOTIC AGENTS STATUS SNOMED Code(s): 888373827544684 Plan: 1-discontinue the vancomycin 2-start the patient on daptomycin 4 mg/kg every 48 hour 3-local wound care to the mid back wound with the meta honey followed by moist dressing and keep the area of the pressure 4-change King catheter and obtain urine culture from new King We will follow on clinical condition and cultures to further adjust medication if needed Thank you for this consultation we will follow the patient along with you Time with Patient: Greater than 30
[2019-03-03] MEDS: SODIUM CHLORIDE 0.9% 1,000 ML IV SCH (00:16)
[2019-03-03 01:37] LABS: Appearance,Urine Turbid (Clear); Bacteria,Urine Moderate /hpf; Bilirubin,Urine Negative (Negative); Blood,Urine Moderate (Negative); Color,Urine Yellow; Glucose,Urine (UA) Negative (Negative); Ketones,Urine Negative (Negative); Leukocyte Esterase,Urine Large (Negative); Mucus,Urine Rare /hpf; Nitrite,Urine Negative (Negative); PH, Urine 7.5 (5.0-8.0); Protein,Urine 2+ (Negative); RBC,Urine 137 /hpf (0-5); Specific Gravity,Urine 1.018 (1.001-1.035); Squamous Epithelial Cell,Urine 4 /hpf (0-4); Urobilinogen,Urine <2.0 mg/dL (<2.0); WBC,Urine >182 /hpf (0-5)
[2019-03-03] MEDS: LEVOTHYROXINE 50 MCG TAB PO SCH (04:49)
[2019-03-03] MEDS: HYDROcodone/APAP 10-325MG 1 EACH TAB PO PRN ×4 (04:50→19:24)
--- NOTE | 2019-03-03 08:18 | CDI ---
Documentation Clarification Form Date: 03/03/2019 08:07:58 AM From: Alia HouMARKELL fong, CCDS Admit Date: 03/01/2019 03:22:00 PM Patient Name: Treasure Fowler Visit Number: [id number] Discharge Date: ATTENTION: The Clinical Documentation Specialists (CDI) and [facility] Coding Staff appreciate your assistance in clarifying documentation. Please respond to the clarification below the line at the bottom and electronically sign. The CDI & [facility] Coding staff will review the response and follow-up if needed. Please note: Queries are made part of the Legal Health Record. If you have any questions, please contact the author of this message via ITS. Dr. Miles Collado: Malnutrition has been documented in History & Physical as "protein calorie malnutrition" without further acuity. 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 Clinical Indicators: Presented with worsening thoracic ulceration or abcess, per ID consult: stage III pressure ulcer. Labs: Jeremy 8.3*, Mag 1.4*, Alk Phos 294^, Albumin 2.5* Current BMI: 25.6 Wt: 78.5kg, Ht 5 ft 9 in. (underweight). From retirement, on fall precautions, Incontinence, has King catheter, eating 75%, appetite fair, loose stools. Treatment: King cath to be changed with cultures obtained from new King. Supplemental nutrition: Jorge, Magic cups. In your professional opinion, can you please clarify if these findings signify one of the following conditions? Mild Protein-Calorie Malnutrition Moderate Protein-Calorie Malnutrition Severe Protein-Calorie Malnutrition Other condition, please specify Unable to determine (Last Revision: September 2018) MTDD
[2019-03-03] MEDS: SODIUM BICARBONATE TAB 650 MG TAB PO SCH ×2 (09:20→16:13)
[2019-03-03] MEDS: PANTOPRAZOLE 40 MG TABLET PO SCH (09:23)
[2019-03-03] MEDS: FUROSEMIDE 20 MG TAB PO SCH (09:23)
[2019-03-03] MEDS: ENOXAPARIN 30 MG/0.3 ML SYRINGE SQ SCH (09:24)
[2019-03-03] MEDS: MIDODRINE 5 MG TAB PO SCH ×3 (09:24→19:33)
[2019-03-03] MEDS: CHOLESTYRAMINE (WITH SUGAR) 4 GM PACKET PO SCH ×2 (09:24→16:12)
[2019-03-03] MEDS: METOPROLOL TARTRATE 25 MG TAB PO SCH (09:25)
[2019-03-03] MEDS: LACTOBACILLUS ACIDOPH & BULGAR 1 EACH PACKET PO SCH ×2 (09:25→16:12)
[2019-03-03] MEDS: ESCITALOPRAM 20 MG TAB PO SCH (09:25)
[2019-03-03 09:45] LABS: Calcium 7.8 mg/dL (8.4-10.2); Potassium 4.2 mmol/L (3.5-5.1)
[2019-03-03] MEDS: AZTREONAM 1 GM in SODIUM CHLORIDE 0.9% 50 ML IVPB SCH ×2 (16:12→21:09)
[2019-03-03] MEDS: ASPIRIN 325 MG TAB PO SCH (16:13)
--- NOTE | 2019-03-03 16:29 | PN ---
PROGRESS NOTE Patient is seen for followup for CKD. She is currently resting comfortably. Patient states her back pain has improved. The MRI did not show any underlying abscess. There was no evidence of osteomyelitis. No fluid collection was noted. Patient is maintained on IV antibiotics. PHYSICAL EXAMINATION: On examination, blood pressure was 104/59, heart rate 70 per minute. Patient is afebrile. EXAMINATION OF THE HEART: S1 and S2. EXAMINATION OF LUNGS: Decreased breath sounds at bases. ABDOMEN: Soft. Mild tenderness noted in the mid abdomen. Examination of lower extremities shows edema 1+ bilaterally with chronic skin changes. 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 LABS: Sodium 140, potassium 4.2, serum creatinine 2.28. ASSESSMENT: 1. 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 Renal function is currently at baseline. 2. Sacral decubitus with no evidence of osteomyelitis or abscess in the spine, maintained on IV antibiotics, being followed by Infectious Disease. 3. Chronic kidney disease, stage IV. Renal function at baseline. 4. Hypothyroidism. 5. Chronic lower extremity edema. 6. History of repeated urinary tract infections, currently with ongoing pyuria. PLAN: Discontinue IV fluids. Continue to encourage increased oral intake. Repeat labs periodically. Continue with the antibiotics. Maintain followup as outpatient. MMODL / IJN: [id number] /
--- NOTE | 2019-03-03 16:43 | PN ---
PROGRESS NOTE DATE OF SERVICE: 03/03/2019 REASON FOR FOLLOWUP: Mid back infected pressure ulcer. INTERVAL HISTORY: The patient is currently afebrile. She is still complaining of pain to the mid back area, but no worsening. Denies having any chest pain or shortness of breath. No cough. No abdominal pain or diarrhea. PHYSICAL EXAMINATION: Blood pressure 106/62 with a pulse of 63, temperature 98. She is 95% on room air. General description is an elderly female lying in bed in no distress. RESPIRATORY SYSTEM: Unlabored breathing. Clear to auscultation anteriorly. HEART: S1, S2. Regular rate and rhythm. ABDOMEN: Soft. No tenderness. LABS: Creatinine is 2.28. UA still positive. The back wound is showing Gram-negative bacilli and group D Enterococcus. DIAGNOSTIC IMPRESSION AND PLAN: Patient with infected pressure ulcer to the mid back area, stage III. Local culture with group D Enterococcus and Gram-negative bacilli. Patient is currently covered with daptomycin. We will add Azactam to cover for the Gram-negative in view of her MULTIPLE ANTIBIOTIC ALLERGIES and monitor clinical course closely. MMODL / IJN: [id number] /
[2019-03-03] MEDS: TAMSULOSIN 0.4 MG CAP.ER.24H PO SCH (21:10)
[2019-03-03] MEDS: LIDOCAINE 5% PATCH TOPICAL SCH (21:10)
[2019-03-03] MEDS: METOPROLOL TARTRATE 12.5 MG TAB PO SCH (21:10)
[2019-03-03] MEDS: HYDROmorphone 0.5 MG/0.5 ML SYRINGE IVP PRN (21:16)
[2019-03-04] MEDS: SODIUM CHLORIDE 0.9% 1,000 ML IV SCH (04:43)
[2019-03-04] MEDS: LEVOTHYROXINE 50 MCG TAB PO SCH (06:04)
[2019-03-04] MEDS: HYDROmorphone 0.5 MG/0.5 ML SYRINGE IVP PRN (06:27)
[2019-03-04] MEDS: HYDROcodone/APAP 10-325MG 1 EACH TAB PO PRN ×2 (07:55→14:46)
[2019-03-04 07:56] LABS: Albumin 2.4 g/dL (3.5-5.0); Calcium 7.9 mg/dL (8.4-10.2); Potassium 3.7 mmol/L (3.5-5.1); Total Bilirubin 0.3 mg/dL (0.2-1.3); Total Protein 6.2 g/dL (6.3-8.2)
[2019-03-04 08:03] LABS: Basophils % (A) 0 %; Eosinophils # (A) 0.2 k/uL (0-0.7); Eosinophils % (A) 3 %; HCT 38.8 % (34.0-46.0); HGB 11.5 gm/dL (11.4-16.0); Hypochromasia Marked; Lymphocytes # (A) 1.1 k/uL (1.0-4.8); Lymphocytes % (A) 22 %; MCHC 29.8 g/dL (31.0-37.0); MCV 90.7 fL (80.0-100.0); Mean Platelet Volume 8.3; Monocytes # (A) 0.4 k/uL (0-1.0); Monocytes % (A) 8 %; Neutrophils # (A) 3.2 k/uL (1.3-7.7); Neutrophils % (A) 65 %; Platelet Count 233 k/uL (150-450); RBC 4.28 m/uL (3.80-5.40); RDW 14.9 % (11.5-15.5)
[2019-03-04] MEDS: MIDODRINE 5 MG TAB PO SCH ×3 (10:46→18:07)
[2019-03-04] MEDS: FUROSEMIDE 20 MG TAB PO SCH (10:46)
[2019-03-04] MEDS: ENOXAPARIN 30 MG/0.3 ML SYRINGE SQ SCH (10:46)
[2019-03-04] MEDS: METOPROLOL TARTRATE 25 MG TAB PO SCH (10:47)
[2019-03-04] MEDS: PANTOPRAZOLE 40 MG TABLET PO SCH (10:47)
[2019-03-04] MEDS: LACTOBACILLUS ACIDOPH & BULGAR 1 EACH PACKET PO SCH ×2 (10:47→17:36)
[2019-03-04] MEDS: ESCITALOPRAM 20 MG TAB PO SCH (10:47)
[2019-03-04] MEDS: SODIUM BICARBONATE TAB 650 MG TAB PO SCH ×2 (10:47→17:36)
[2019-03-04] MEDS: AZTREONAM 1 GM in SODIUM CHLORIDE 0.9% 50 ML IVPB SCH ×2 (10:48→20:19)
[2019-03-04] MEDS: CHOLESTYRAMINE (WITH SUGAR) 4 GM PACKET PO SCH ×2 (10:48→17:36)
[2019-03-04] MEDS: HYDROmorphone 1 MG/ML 1 ML SYRINGE IVP PRN ×3 (14:08→23:33)
--- NOTE | 2019-03-04 14:39 | PN ---
PROGRESS NOTE Patient is seen for followup for chronic kidney disease. She was admitted to the hospital with back pain. There is no evidence of osteomyelitis or abscess formation. The patient's pain is better controlled. Her renal function is fairly stable, creatinine at 2.3 yesterday. IV fluids have been discontinued. Patient is maintained on small dose of p.o. Lasix. PHYSICAL EXAMINATION: On examination, blood pressure this morning 112/65, heart rate 75 per minute, she is afebrile. Examination of the heart S1, S2. Examination of the lungs, bilateral breath sounds are heard. Abdomen is soft, non-tender. Examination of lower extremities shows edema 2+ bilaterally, which is stable. LABS: Show sodium 141, potassium 3.7, BUN 47, creatinine 2.3, hemoglobin 11.5 g/dL. ASSESSMENT: 1. Chronic kidney disease secondary to nephrolithiasis, obstructive uropathy status post bilateral ureteral stents. 2. Urinary tract infection. Urine culture growing Morganella morganii, previous history of urinary tract infection as well. 3. Back pain associated with decub, currently improved. 4. Lower extremity edema, fairly stable. 5. History of repeated urinary tract infections. 6. Left renal atrophy. PLAN: Continue to encourage increased oral intake. MMODL / IJN: [id number] /
[2019-03-04] MEDS: ASPIRIN 325 MG TAB PO SCH (17:36)
[2019-03-04] MEDS: oxyCODONE-APAP 10-325MG 1 EACH TAB PO PRN (20:18)
[2019-03-04] MEDS: TAMSULOSIN 0.4 MG CAP.ER.24H PO SCH (20:18)
[2019-03-04] MEDS: LIDOCAINE 5% PATCH TOPICAL SCH (20:19)
--- NOTE | 2019-03-04 21:02 | PN ---
PROGRESS NOTE DATE OF SERVICE: 03/04/2019. REASON FOR FOLLOWUP: 1. Infected midback wound. 2. Possible urinary tract infection. INTERVAL HISTORY: The patient is currently afebrile. The patient is breathing comfortably. The patient did mention overall improvement of the pain to the mid back wound area. No chest pain, shortness of breath or cough. No abdominal pain. No diarrhea. PHYSICAL EXAMINATION: Blood pressure 112/65 with a pulse of 75. Temperature 98. She is 94% on room air. General description is an elderly female lying in bed in no distress. Respiratory system: Unlabored breathing. Clear to auscultation anteriorly. Heart S1, S2. Regular rate and rhythm. ABDOMEN: Soft, no tenderness. LABS: Hemoglobin is 11.5, white count 5.0, BUN of 47, creatinine is 2.34. DIAGNOSTIC IMPRESSION AND PLAN: Patient with mid back pressure ulcer. Culture positive for Proteus and Enterococcus faecalis. Patient is currently covered with Azactam and Dapto. Continue while waiting for the repeat urine culture to finalize to adjust antibiotic further. The patient will likely need a PICC line for outpatient IV antibiotic. Continue supportive care. MMODL / IJN: [id number] /
[2019-03-04] MEDS: METOPROLOL TARTRATE 12.5 MG TAB PO SCH (21:45)
--- NOTE | 2019-03-04 23:44 | PN ---
PROGRESS NOTE Treasure Fowler is a 68-year-old white female with a back abscess/cellulitis of the back with wound in the thoracic spine. Awaiting repeat urinary culture. Remains on broad- spectrum antibiotics x2 IV. Pain control is out of control. She is on [place] 10s and not doing the trick. Cardiovascular: S1-S2. Psych fair mood and affect. 10/10 pain. Neurologic: Cranial nerves intact. Psych fair mood and affect. ASSESSMENT: 1. Cellulitis of the thoracic spine. 2. Open wound, thoracic spine. 3. Urinary tract infection. 4. Chronic renal disease stage 3-4. PLAN: Continue with broad-spectrum antibiotics x2, possibly PICC line will be needed and Medihoney to the wound. Await urine culture. Pain medicine will be increased off [place] to Percocet. MMODL / IJN: [id number] /
[2019-03-05] MEDS: oxyCODONE-APAP 10-325MG 1 EACH TAB PO PRN ×4 (02:41→22:58)
[2019-03-05] MEDS: HYDROmorphone 1 MG/ML 1 ML SYRINGE IVP PRN ×2 (03:58→10:40)
[2019-03-05 05:45] VITALS: RESP 16
[2019-03-05] MEDS: LEVOTHYROXINE 50 MCG TAB PO SCH (05:47)
[2019-03-05] MEDS: SODIUM CHLORIDE 0.9% 1,000 ML IV SCH ×2 (06:01→22:58)
[2019-03-05] MEDS: SODIUM BICARBONATE TAB 650 MG TAB PO SCH ×2 (09:16→18:16)
[2019-03-05] MEDS: FUROSEMIDE 20 MG TAB PO SCH (09:16)
[2019-03-05] MEDS: METOPROLOL TARTRATE 25 MG TAB PO SCH (09:16)
[2019-03-05] MEDS: PANTOPRAZOLE 40 MG TABLET PO SCH (09:17)
[2019-03-05] MEDS: MIDODRINE 5 MG TAB PO SCH ×3 (09:17→18:16)
[2019-03-05] MEDS: AZTREONAM 1 GM in SODIUM CHLORIDE 0.9% 50 ML IVPB SCH ×2 (09:17→19:49)
[2019-03-05] MEDS: CHOLESTYRAMINE (WITH SUGAR) 4 GM PACKET PO SCH ×2 (09:18→18:16)
[2019-03-05] MEDS: ENOXAPARIN 30 MG/0.3 ML SYRINGE SQ SCH (09:18)
[2019-03-05] MEDS: LACTOBACILLUS ACIDOPH & BULGAR 1 EACH PACKET PO SCH ×2 (09:18→18:16)
[2019-03-05] MEDS: ESCITALOPRAM 20 MG TAB PO SCH (09:18)
--- NOTE | 2019-03-05 11:24 | PN ---
PROGRESS NOTE SUBJECTIVE: A 68-year-old white female with back abscess versus cellulitis. She is getting Medihoney to the wound. She is on IV antibiotics x2, which she will need long-term, possibly a PICC line will need to be placed for long-term antibiotic care. We are waiting on urine culture. long-term antibiotics for UTI and cellulitis and wound care to the mid thoracic back. She will need to be alternated positioning to get off her back, lay on her side. Chronic renal disease stage 3 to 4. Continue current treatments with IV antibiotics. LUNGS: Clear. CARDIOVASCULAR: S1, S2. GI: Soft. HEMATOLOGY: 2+ edema. ASSESSMENT: 1. Back cellulitis. 2. Decubitus ulcer thoracic spine. No signs of osteomyelitis. Continue with IV antibiotics x2, which Dr. Epps ordered long-term. Await for final urine culture and then send her home on antibiotics to rehab center with Medihoney wound care to the back. MMODL / IJN: [id number] /
--- NOTE | 2019-03-05 18:14 | PN ---
PROGRESS NOTE Patient is seen for followup for chronic kidney disease. Her renal function has been fairly stable, with creatinine staying at 2.2 to 2.3 mg/dL. Patient was admitted with back pain. She has a decubitus ulcer. There is no evidence of osteomyelitis or abscess formation noted on the MRI. PHYSICAL EXAMINATION: On examination, blood pressure was 80/45 this morning, heart rate 67 per minute. Blood pressure has been running 102 to 100 mmHg. HEENT atraumatic, normocephalic. Pupils are equal, round. JVP is not elevated. Lymph nodes are not palpable. EXAMINATION OF THE HEART: S1 and S2. EXAMINATION OF LUNGS: Bilateral breath sounds are heard. Decreased breath sounds at bases. ABDOMEN: Soft. Mild tenderness noted. LOCATION MAN exam is grossly intact. Examination lower extremities shows edema 2+ bilaterally, which is mainly chronic. LABS: Sodium 141, potassium 3.7, chloride 111, CO2 24, BUN 47, creatinine 2.34. ASSESSMENT: 1. Chronic kidney disease secondary to chronic nephrolithiasis and obstructive uropathy, status post ureteral stent placement in December of 2018. 2. History of left renal atrophy. 3. Urinary tract infection; urine culture growing Morganella morganii. 4. Chronic lower extremity edema. 5. Back pain with sacral decubitus. No evidence of osteomyelitis or abscess formation, being followed by I&D. PLAN: Can change diet to regular diet. Continue small dose of diuretics. Continue to encourage increased oral intake. MMODL / IJN: [id number] /
[2019-03-05] MEDS: ASPIRIN 325 MG TAB PO SCH (18:16)
[2019-03-05] MEDS: TAMSULOSIN 0.4 MG CAP.ER.24H PO SCH (19:49)
[2019-03-05] MEDS: METOPROLOL TARTRATE 12.5 MG TAB PO SCH (19:49)
[2019-03-05] MEDS: LIDOCAINE 5% PATCH TOPICAL SCH (19:50)
[2019-03-05] MEDS: HYDROmorphone 0.5 MG/0.5 ML SYRINGE IVP PRN (19:50)
--- NOTE | 2019-03-05 22:44 | PN ---
PROGRESS NOTE DATE OF SERVICE: 03/05/2019 REASON FOR FOLLOWUP: Infected mid back pressure ulcer and UTI. INTERVAL HISTORY: The patient is currently afebrile. The patient is breathing comfortably. Pain to the mid back area is currently controlled. No nausea, no vomiting. No abdominal pain or diarrhea. PHYSICAL EXAMINATION: Blood pressure is 195/54 with a pulse of 75, temperature 98. She is 95% on room air. General description is an elderly female lying in bed in no distress. RESPIRATORY SYSTEM: Unlabored breathing. Clear to auscultation anteriorly. HEART: S1, S2. Regular rate and rhythm. ABDOMEN: Soft. No tenderness. LABS: Hemoglobin is 11.5, white count 5.0 with a BUN of 47, creatinine 2.34. The repeat urine grew Proteus mirabilis. DIAGNOSTIC IMPRESSION AND PLAN: Patient with a mid back infected wound and culture positive for proteus and Enterococcus faecalis, which is sensitive to penicillin. Unfortunately, the patient has MULTIPLE ANTIBIOTIC ALLERGIES. With her urine showing Proteus mirabilis, antibiotic will be adjusted to Invanz mg daily to cover for both pathogens for at least 2 weeks. [facility] Keep the area off pressure. MMODL / IJN: [id number] /
[2019-03-06] MEDS: HYDROmorphone 0.5 MG/0.5 ML SYRINGE IVP PRN ×2 (03:54→14:25)
[2019-03-06] MEDS: LEVOTHYROXINE 50 MCG TAB PO SCH (06:18)
[2019-03-06] MEDS: oxyCODONE-APAP 10-325MG 1 EACH TAB PO PRN ×2 (06:18→14:26)
[2019-03-06] MEDS ORDERED: ERTAPENEM 0.5 GM in SODIUM CHLORIDE 0.9% 50 ML IVPB SCH (09:00)
[2019-03-06] MEDS: LIDOCAINE 5% PATCH TOPICAL SCH (10:07)
[2019-03-06] MEDS: LACTOBACILLUS ACIDOPH & BULGAR 1 EACH PACKET PO SCH (10:08)
[2019-03-06] MEDS: ESCITALOPRAM 20 MG TAB PO SCH (10:08)
[2019-03-06] MEDS: CHOLESTYRAMINE (WITH SUGAR) 4 GM PACKET PO SCH (10:08)
[2019-03-06] MEDS: ENOXAPARIN 30 MG/0.3 ML SYRINGE SQ SCH (10:08)
[2019-03-06] MEDS: MIDODRINE 5 MG TAB PO SCH ×2 (10:08→13:11)
[2019-03-06] MEDS: METOPROLOL TARTRATE 25 MG TAB PO SCH (10:15)
[2019-03-06] MEDS: PANTOPRAZOLE 40 MG TABLET PO SCH (10:15)
[2019-03-06] MEDS: SODIUM BICARBONATE TAB 650 MG TAB PO SCH (10:15)
[2019-03-06] MEDS: HYDROmorphone 1 MG/ML 1 ML SYRINGE IVP PRN (10:16)
[2019-03-06] MEDS: FUROSEMIDE 20 MG TAB PO SCH (10:27)
[2019-03-06 11:58] VITALS: BP 92/53; PULSE 69; TEMP 98.1
[2019-03-06] MEDS ORDERED: LIDOCAINE 1% INJ 10MG/ML (20 ML MDV) ONE (13:09)
[2019-03-06] MEDS ORDERED: LIDOCAINE 1% INJ 10MG/ML (20 ML MDV) SQ ONE (13:39)
--- NOTE | 2019-03-06 14:56 | IR ---
EXAMINATION TYPE: IR cvc insert >=5 years DATE OF EXAM: 03/06/2019 COMPARISON: NONE CLINICAL HISTORY: Infection Needs long-term intravenous access for antibiotics. PROCEDURE: After informed consent, the skin overlying the right basilic vein was localized with ultrasound and n oted to be compressible and patent. An ultrasound image was obtained and submitted on the patient's chart. The overlying skin was prepped and draped and Lidocaine was used for local anesthesia. A ski n paul was made with a scalpel. Access was gained to the vein under ultrasound guidance with a 21 ga uge needle and a 0.018 inch wire was advanced. Access site was dilated with Peel-Away sheath and cat heter tailored to the appropriate length and advanced such that the distal tip is at the cavoatrial j unction. Spot image was obtained verifying placement. Catheter was fixed to the skin with suture an d a sterile dressing was placed following hemostasis. Catheter was aspirated and flushed with saline . Patient was discharged in stable condition without complication.Maximal barrier technique is utili zed. Ultrasound image is documented on the chart. Ultrasound used with sterile technique. Fluoro time and fluoroscopic images submitted to document procedure: 0.2 minutes fluoroscopy time, 28 intraoperative images document the procedure IMPRESSION: STATUS POST ULTRASOUND AND FLUOROSCOPIC GUIDED PICC LINE PLACEMENT, READY FOR USE. THIS PROCEDURE WAS PERFORMED BY THE UNDERSIGNED.
--- NOTE | 2019-03-06 22:08 | PN ---
PROGRESS NOTE DATE OF SERVICE: 03/06/2019 REASON FOR FOLLOWUP: 1. Mid back infected pressure ulcer. 2. UTI. INTERVAL HISTORY: The patient was seen on rounds early this afternoon. The patient has been afebrile. The pain to the mid back area has slightly decreased in intensity. No chest pain, shortness of breath or cough. No abdominal pain or diarrhea. PHYSICAL EXAMINATION: Blood pressure is 92/53 with a pulse of 69, temperature 98.1. She is 94% on room air. General description is an elderly female lying in bed in no distress. RESPIRATORY SYSTEM: Unlabored breathing. Clear to auscultation. HEART: S1, S2. Regular rate and rhythm. ABDOMEN: Soft. No tenderness. EXAMINATION OF THE BACK: Wound with minimal slough tissue. Surrounding redness has improved. LABS: No new labs have been obtained today. DIAGNOSTIC IMPRESSION AND PLAN: Patient with mid back stage III infected pressure ulcer with secondary cellulitis, culture positive for Proteus mirabilis and Enterococcus faecalis. Proteus is also showing up in the urine. This patient does have MULTIPLE ANTIBIOTIC ALLERGIES. Currently covered with Invanz 500 mg daily to continue for 2 weeks. Local wound care with [facility]. Keep the area off pressure. Follow up in the wound care center in one week. MMODL / IJN: [id number] /
--- NOTE | 2019-03-09 08:52 | CDI ---
Documentation Clarification Form Date: 03/03/2019 08:07:00 AM From: Alia GasparHouMARKELL fong, CCDS Admit Date: 03/01/2019 03:22:00 PM Patient Name: Treasure Fowler Visit Number: [id number] Discharge Date: 03/06/2019 05:26:00 PM ATTENTION: The Clinical Documentation Specialists (CDI) and [facility] Coding Staff appreciate your assistance in clarifying documentation. Please respond to the clarification below the line at the bottom and electronically sign. The CDI & [facility] Coding staff will review the response and follow-up if needed. Please note: Queries are made part of the Legal Health Record. If you have any questions, please contact the author of this message via ITS. Dr. Miles Collado: Malnutrition has been documented in History & Physical as "protein calorie malnutrition" without further acuity. 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 Clinical Indicators: Presented with worsening thoracic ulceration or abcess, per ID consult: stage III pressure ulcer. Labs: Jeremy 8.3*, Mag 1.4*, Alk Phos 294^, Albumin 2.5* Current BMI: 25.6 Wt: 78.5kg, Ht 5 ft 9 in. (underweight). From senior care, on fall precautions, Incontinence, has King catheter, eating 75%, appetite fair, loose stools. Treatment: King cath to be changed with cultures obtained from new King. Supplemental nutrition: Jorge, Magic cups. In your professional opinion, can you please clarify if these findings signify one of the following conditions? Mild Protein-Calorie Malnutrition Moderate Protein-Calorie Malnutrition Severe Protein-Calorie Malnutrition Other condition, please specify Unable to determine (Last Revision: September 2018) MTDD
--- NOTE | 2019-03-09 09:03 | CDI ---
Documentation Clarification Form Date: 03/09/2019 08:54:43 AM From: Alia HouMARKELL fong, CCDS Admit Date: 03/01/2019 03:22:00 PM Patient Name: Treasure Fowler Visit Number: [id number] Discharge Date: 03/06/2019 05:26:00 PM ATTENTION: The Clinical Documentation Specialists (CDI) and [facility] Coding Staff appreciate your assistance in clarifying documentation. Please respond to the clarification below the line at the bottom and electronically sign. The CDI & [facility] Coding staff will review the response and follow-up if needed. Please note: Queries are made part of the Legal Health Record. If you have any questions, please contact the author of this message via ITS. Dr. Miles Collado: Per the Infectious Disease Consult 03/02: Patient has a history of complicated UTI & multiple antibiotic allergies. Recommended King catheter be changed & follow up with cultures. 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 Clinical Indicators: Presented from snf with a lower back pressure ulcer & UTI with King catheter present. Urinalysis 03/01: turbid, 2+ protein, moderate blood, large esterase, RBC 152, WBC >182 Urine culture 03/01: Final: Morganella morganii. Urinalysis 03/03: turbid, 2+ protein, moderate blood, large esterase, RBC 137, WBC >182 Urine culture 03/03: Final: Proteus mirabillis Teatment: King changed 03/01 with new cultures from new King. IV fl bolus, IV Vancomycin, IV fl rate 1000, IV Dilaudid. In your professional opinion, can you please clarify the etiology of the UTI, if known? King catheter UTI is not related to catheter Other condition, please specify Unable to determine If an infective organism is present, please specify cause and effect relationship if applicable. (Last Revision: June 2017) MTDD
--- NOTE | 2019-03-10 07:08 | CDI ---
Documentation Clarification Form Date: 03/03/2019 08:07:00 AM From: Alia GasparHouMARKELL fong, CCDS Admit Date: 03/01/2019 03:22:00 PM Patient Name: Treasure Fowler Visit Number: [id number] Discharge Date: 03/06/2019 05:26:00 PM ATTENTION: The Clinical Documentation Specialists (CDI) and [facility] Coding Staff appreciate your assistance in clarifying documentation. Please respond to the clarification below the line at the bottom and electronically sign. The CDI & [facility] Coding staff will review the response and follow-up if needed. Please note: Queries are made part of the Legal Health Record. If you have any questions, please contact the author of this message via ITS. Dr. Miles Collado: Malnutrition has been documented in History & Physical as "protein calorie malnutrition" without further acuity. 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 Clinical Indicators: Presented with worsening thoracic ulceration or abcess, per ID consult: stage III pressure ulcer. Labs: Jeremy 8.3*, Mag 1.4*, Alk Phos 294^, Albumin 2.5* Current BMI: 25.6 Wt: 78.5kg, Ht 5 ft 9 in. (underweight). From assisted, on fall precautions, Incontinence, has King catheter, eating 75%, appetite fair, loose stools. Treatment: King cath to be changed with cultures obtained from new King. Supplemental nutrition: Jorge, Magic cups. In your professional opinion, can you please clarify if these findings signify one of the following conditions? Mild Protein-Calorie Malnutrition Moderate Protein-Calorie Malnutrition Severe Protein-Calorie Malnutrition Other condition, please specify Unable to determine (Last Revision: September 2018) MTDD
--- NOTE | 2019-03-10 07:10 | CDI ---
Documentation Clarification Form Date: 03/09/2019 08:54:00 AM From: Alia HouMARKELL fong, CCDS Admit Date: 03/01/2019 03:22:00 PM Patient Name: Treasure Fowler Visit Number: [id number] Discharge Date: 03/06/2019 05:26:00 PM ATTENTION: The Clinical Documentation Specialists (CDI) and [facility] Coding Staff appreciate your assistance in clarifying documentation. Please respond to the clarification below the line at the bottom and electronically sign. The CDI & [facility] Coding staff will review the response and follow-up if needed. Please note: Queries are made part of the Legal Health Record. If you have any questions, please contact the author of this message via ITS. Dr. Miles Collado: Per the Infectious Disease Consult 03/02: Patient has a history of complicated UTI & multiple antibiotic allergies. Recommended King catheter be changed & follow up with cultures. 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 Clinical Indicators: Presented from longterm with a lower back pressure ulcer & UTI with King catheter present. Urinalysis 03/01: turbid, 2+ protein, moderate blood, large esterase, RBC 152, WBC >182 Urine culture 03/01: Final: Morganella morganii. Urinalysis 03/03: turbid, 2+ protein, moderate blood, large esterase, RBC 137, WBC >182 Urine culture 03/03: Final: Proteus mirabillis Teatment: King changed 03/01 with new cultures from new King. IV fl bolus, IV Vancomycin, IV fl rate 1000, IV Dilaudid. In your professional opinion, can you please clarify the etiology of the UTI, if known? King catheter UTI is not related to catheter Other condition, please specify Unable to determine If an infective organism is present, please specify cause and effect relationship if applicable. (Last Revision: June 2017) MTDD
--- NOTE | 2019-03-10 23:47 | DS ---
DISCHARGE SUMMARY DISCHARGE SUMMARY ADDENDUM: Severe protein-calorie malnutrition. Urinary tract infection secondary to ureteral stent placement, ureteral stenosis. MMODL / IJN: [id number] /
== END 2019-03-06 17:26 | DRG 592 ==
LOC: EC 11:00 → 5NMEDONC 15:22
PROVIDERS: ADMIT Family Medicine; ATTEND Family Medicine
PROC: 02HV33Z Insertion of Infusion Device into Superior Vena Cava, Percutaneous Approach (ICD-10-PCS; principal; 2019-03-06 15:35)
DX: L89.103 Pressure ulcer of unspecified part of back, stage 3 (principal); E43 Unspecified severe protein-calorie malnutrition; I13.2 Hypertensive heart and chronic kidney disease with heart failure and with stage 5 chronic kidney disease, or end stage renal disease; I50.32 Chronic diastolic (congestive) heart failure; L03.312 Cellulitis of back [any part except buttock and flank]; L02.212 Cutaneous abscess of back [any part, except buttock and flank]; N17.9 Acute kidney failure, unspecified; N18.5 Chronic kidney disease, stage 5; N39.0 Urinary tract infection, site not specified; T83.592A Infection and inflammatory reaction due to indwelling ureteral stent, initial encounter; B96.4 Proteus (mirabilis) (morganii) as the cause of diseases classified elsewhere; B95.2 Enterococcus as the cause of diseases classified elsewhere; E03.9 Hypothyroidism, unspecified; E86.0 Dehydration; F32.9 Major depressive disorder, single episode, unspecified; K74.60 Unspecified cirrhosis of liver; L89.159 Pressure ulcer of sacral region, unspecified stage; N13.9 Obstructive and reflux uropathy, unspecified; N20.0 Calculus of kidney; Z79.2 Long term (current) use of antibiotics; Z79.82 Long term (current) use of aspirin; Z79.890 Hormone replacement therapy; Z79.899 Other long term (current) drug therapy; Z82.5 Family history of asthma and other chronic lower respiratory diseases; Z85.118 Personal history of other malignant neoplasm of bronchus and lung; Z85.3 Personal history of malignant neoplasm of breast; Z85.42 Personal history of malignant neoplasm of other parts of uterus; Z85.820 Personal history of malignant melanoma of skin; Z87.440 Personal history of urinary (tract) infections; Z87.442 Personal history of urinary calculi; Z87.891 Personal history of nicotine dependence; Z88.1 Allergy status to other antibiotic agents; Z90.13 Acquired absence of bilateral breasts and nipples; Z90.710 Acquired absence of both cervix and uterus; Z92.21 Personal history of antineoplastic chemotherapy; Z88.2 Allergy status to sulfonamides; Z88.8 Allergy status to other drugs, medicaments and biological substances; Z88.0 Allergy status to penicillin; Z91.013 Allergy to seafood; Z90.49 Acquired absence of other specified parts of digestive tract; Z68.25 Body mass index [BMI] 25.0-25.9, adult
CPT/HCPCS: 36415; 36556; 36573; 72128; 72131; 72148; 80048; 80053; 81001; 82550; 82565; 83605; 83735; 84100; 84484; 85025; 85610; 85652; 85730; 87040; 87070; 87075; 87077; 87086; 87186; 87205; 93005; 94760; 96360; 99285